=== PATIENT | female | born 2000 | race Caucasian/White ===

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

== ENCOUNTER 2020-12-21 09:14 | Emergency (ER) | payer OTHER, SELFPAY ==
[2020-12-21 09:20] VITALS: BP 136/88; PULSE 91; RESP 17; TEMP 36.9; O2SAT 98; BMI 30.7
[2020-12-21 09:54] LABS: UTC Strep Screen (Rapid) Positive (Negative)
--- NOTE | 2020-12-21 09:56 | HMH.EDUTC ---
[facility] [place] Impression: Strep throat Disposition: Home, Self-Care Condition on Discharge: Good Instructions: DI for Strep Throat, Strep Throat, Azithromycin Additional Instructions: *Monitor Temp, Over the counter Motrin or Tylenol as directed/as needed Tylenol every 4 hours and Motrin every 6 hours (as long as your family doctor has told you that you can take it) for fever or pain. and straight to ER if unable to lower temp less than 101.0 after medication given *Warm salt water gargles may help to soothe the throat *Throat Lozenges *Warm fluids like tea with honey may help to soothe the throat *Sleep elevated *Humidifier/Vaporizer *If you did not take Penicillin shot or was unable to, start taking antibiotic immediately and make sure that you take it for the FULL length of time although you should start to feel better in 24-48 hours *change toothbrush and toothpaste 24-48 hours after starting to take antibiotics so you do not reinfect yourself Monitor Temp. Tylenol and/or Ibuprofen as needed. ER if fever is no less than 101 despite alternating Tylenol and Ibuprofen * Encourage fluids, water, Gatorade, powerade, pedialyte if /toddler/or child *Cold fluids, popsicles and ice cream may feel good on his throat Follow up IMMEDIATELY for new or worsening symptoms or no Noticeable improvement over the next 48-72 hours. 911 for difficulty breathing or swallowing Prescriptions: methylPREDNISolone [Medrol 4mg tab] 4 mg PO DIRECTED #21 tab Transmission Status: Pending to [facility] Azithromycin [Z-Constantin 250mg Tab*] 250 mg PO UD DOSE PK #6 tab Transmission Status: Pending to [facility] Referrals: Daniel Benjamin MD [Primary Care Provider] - As needed Time of Disposition: 10:03 Medical Decision Making - Thomas Inquiry Pt receiving controlled substance: No Thomas was queried for this patient: No Vital Signs: 12/21/20 09:20 Temperature 98.4 F Temperature Source Oral Pulse Rate [Right Brachial] 91 H Respiratory Rate 17 Blood Pressure [Right Arm] 136/88 Blood Pressure Mean [Right Arm] 104 Blood Pressure Source [Right Arm] Automatic Cuff Blood Pressure Position [Right Arm] Sitting 02 Sat by Pulse Oximetry 98 Oxygen Delivery Method Room Air - Lab Data Lab results reviewed: Yes: I reviewed the patient's lab results. Lab Results 12/21/20 09:48: Strep Scn Rapid Clinic Positive A Medical Decision Narrative: Patient states that she is on her period right now and denies chance of [facility] [place] - General Stated complaint: Congestion; sore throat Time Seen by Provider: 12/21/20 09:56 Mode of Arrival: Ambulatory Source of Information: Patient Limitations: No Limitations Description of Symptoms (Recalled from Triage Doc. by RN): PATIENT C/O SORE THROAT, RUNNY NOSE, AND EARS TIGHT SINCE LAST NIGHT HEENT Symptoms (Recalled from RN notes): Yes Resp Symptoms (Recalled from RN notes): No Skin Symptoms (Recalled from RN notes): No MS Symptoms (Recalled from RN notes): No Functional Status (Recalled from RN notes): WNL - History of Present Illness Provider Complaint: Patient state that yesterday evening she started having sore throat and pressure in her ears with runny nose State that it continued throughout the night and this morning she was still feeling bad so she came in to get checked - Related Data Home Medications Medication Instructions Recorded Confirmed cetirizine 10 mg capsule 10 mg PO DAILY 12/14/18 02/20/19 drospirenone 3 mg-ethinyl 1 tab PO DAILY 12/14/18 02/20/19 estradiol 0.03 mg tablet fluticasone propionate 50 1 spray INTRANASAL DAILY 12/14/18 02/20/19 mcg/actuation nasal spray,suspension montelukast 10 mg tablet 10 mg PO QPM 12/14/18 02/20/19 Previous Rx's Medication Instructions Recorded Azithromycin [Z-Constantin 250mg Tab*] 250 mg PO UD DOSE PK #6 tab 12/21/20 methylPREDNISolone [Medrol 4mg 4 mg PO DIRECTED #21 tab 12/21/20
[2020-12-21 10:05] VITALS: BP 136/88; PULSE 91; RESP 17; TEMP 36.9; O2SAT 98
== END 2020-12-21 10:12 | disposition home or self-care (01) ==
PROVIDERS: Emergency Provider Nurse Practitioner; PCP Family Medicine
DX: J02.0 Streptococcal pharyngitis (principal)
CPT/HCPCS: 87880; 99202; G0463

== ENCOUNTER 2021-01-07 11:12 | Emergency (ER) | payer OTHER, SELFPAY ==
[2021-01-07 14:00] VITALS: BP 133/78; PULSE 68; RESP 18; TEMP 36.9; O2SAT 99; BMI 32.5
--- NOTE | 2021-01-07 14:28 | HMH.EDUTC ---
[facility] [place] Clinical Impression: Infected dog bite of finger Qualifiers: Encounter type: initial encounter Qualified Code(s): S61.259A - Open bite of unspecified finger without damage to nail, initial encounter Disposition: Home, Self-Care Condition on Discharge: Good Instructions: DI for Dog Bite Additional Instructions: Clean area well with antibacterial soap and water and pat dry Take oral Antibiotics as prescribed Return if needed Follow up immediately if no improvement or any worsening of symptoms Prescriptions: Amoxicillin/Potassium Clav [Augmentin 875-125 Tablet] 1 tab PO Q12H 7 Days #14 tab Transmission Status: Pending to [facility] Referrals: Daniel Benjamin MD [Primary Care Provider] - As needed Time of Disposition: 14:33 Medical Decision Making - Thomas Inquiry Pt receiving controlled substance: No Thomas was queried for this patient: No Vital Signs: 01/07/21 14:00 Temperature 98.5 F Temperature Source Oral Pulse Rate [Right Brachial] 68 Respiratory Rate 18 Blood Pressure [Right Arm] 133/78 Blood Pressure Mean [Right Arm] 96 Blood Pressure Source [Right Arm] Automatic Cuff Blood Pressure Position [Right Arm] Sitting 02 Sat by Pulse Oximetry 99 Oxygen Delivery Method Room Air Medical Decision Narrative: Patient states that she is allergic to Cephalexin and cephalosporins but has taken Amoxicillin and Augmentin in the past without reactions or complications [facility] [place] - General Stated complaint: dog bite 9/5 lt index finger Time Seen by Provider: 01/07/21 14:28 Mode of Arrival: Ambulatory Source of Information: Patient Limitations: No Limitations Description of Symptoms (Recalled from Triage Doc. by RN): DOG BITE TO LEFT INDEX FINGER YESTERDAY. DOG IS UP TO DATE ON SHOTS. PATIENT IS UP TO DATE ON TDAP HEENT Symptoms (Recalled from RN notes): No Resp Symptoms (Recalled from RN notes): No Skin Symptoms (Recalled from RN notes): Yes MS Symptoms (Recalled from RN notes): No Functional Status (Recalled from RN notes): WNL - History of Present Illness Provider Complaint: Patient states that she was biten on her left index finger and today when she woke up it was warm and red State that she feels like it is infected States that she had her TDAP about a few weeks ago - Related Data Home Medications Medication Instructions Recorded Confirmed cetirizine 10 mg capsule 10 mg PO DAILY 12/14/18 02/20/19 drospirenone 3 mg-ethinyl 1 tab PO DAILY 12/14/18 02/20/19 estradiol 0.03 mg tablet fluticasone propionate 50 1 spray INTRANASAL DAILY 12/14/18 02/20/19 mcg/actuation nasal spray,suspension montelukast 10 mg tablet 10 mg PO QPM 12/14/18 02/20/19 Previous Rx's Medication Instructions Recorded Azithromycin [Z-Constantin 250mg Tab*] 250 mg PO UD DOSE PK #6 tab 12/21/20 methylPREDNISolone [Medrol 4mg 4 mg PO DIRECTED #21 tab 12/21/20 tab] Amoxicillin/Potassium Clav 1 tab PO Q12H 7 Days #14 tab 01/07/21 [Augmentin 875-125 Tablet] Allergies Allergy/AdvReac Type Severity Reaction Status Date / Time cephalexin [CEPHALEXIN] Allergy Unknown Verified 02/20/19 15:10 Cephalosporins Allergy Unknown Verified 02/20/19 15:10 [CEPHALOSPORINS] - Worker's Comp Is this a Worker's Comp case?: No [facility] History - Hepatitis A Screen Drug use history?: No High risk sexual behaviors?: No History of sexually transmitted infection?: No Currently employed?: No Childcare worker?: No Do you have indoor plumbing?: Yes Do you have electricity?: Yes Attestation statement:: This patient has been screened for Hepatitis A risk factors. I have reviewed the patient's past medical history: Yes Other Medical History: Reports: Other Laterality Cases: Bilateral: Tonsillectomy Amputation: No Fractures: No - Social History Smoking Status: Never smoker Alcohol Intake: never Substance Use Type: denies use Occupational Status: other Housing: house Household Members: family
[2021-01-07 14:40] VITALS: BP 133/78; PULSE 68; RESP 18; TEMP 36.9; O2SAT 99
== END 2021-01-07 14:45 | disposition home or self-care (01) ==
PROVIDERS: Emergency Provider Nurse Practitioner; PCP Family Medicine
DX: S61.231A Puncture wound without foreign body of left index finger without damage to nail, initial encounter (principal); W54.0XXA Bitten by dog, initial encounter
CPT/HCPCS: 99202; G0463

== ENCOUNTER 2022-06-19 17:20 | Emergency (ER) | payer BC, SELFPAY ==
[2022-06-19 18:26] VITALS: BP 156/80; PULSE 83; RESP 18; TEMP 37.1; O2SAT 97; BMI 39.3
--- NOTE | 2022-06-19 18:29 | EXP.UTC ---
Discharge Plan Disposition Patient Disposition: Home, Self-Care Condition: Good Prescriptions Prescriptions: New amoxicillin [amoxicillin] 500 mg tablet 500 mg PO TID 10 Days Qty: 30 0RF benzonatate [benzonatate] 100 mg capsule 100 mg PO TIDP PRN (Reason: Cough) Qty: 30 0RF methylprednisolone 4 mg Tablets,Dose Pack 4 mg PO DIRECTED Qty: 21 0RF No Action drospirenone-ethinyl estradiol [Ocella] 3-0.03 mg tablet 1 tab PO DAILY All Day Allergy (cetirizine) 10 mg capsule 10 mg PO DAILY montelukast 10 mg tablet 10 mg PO QPM fluticasone propionate [Flonase Allergy Relief] 50 mcg/actuation spray,suspension 1 spray INTRANASAL DAILY azithromycin 250 mg tablet 250 mg PO QDAY 5 Days Qty: 6 0RF Rx Instructions: ii tabs day one and i tab days 2-5 Referrals Follow up/Referrals: Daniel Benjamin MD [Primary Care Provider] - See instructions Activity Restrictions/Add. Instructions Additional Instructions/Restrictions: Drink plenty of fluids. Take tylenol or ibuprofen for pain or fever. Take the medications as directed. Follow up with your regular doctor. GO TO THE ER FOR ANY WORSENING SYMPTOMS Clinical Impressions Clinical Impression: Sinusitis Instructions Patient Instructions: Sinusitis, Sinus Headache Discharge ED Provider: Mark Mccormick [facility] General Stated complaint: headache congestion Mode of Arrival: Ambulatory Source of Information: Patient Limitations: No Limitations Time Seen by Provider: 06/19/22 18:29 Description of Symptoms (Recalled from Triage Doc. by RN): sinus pressure HEENT Symptoms (Recalled from RN notes): Yes Resp Symptoms (Recalled from RN notes): No Skin Symptoms (Recalled from RN notes): No MS Symptoms (Recalled from RN notes): No Functional Status (Recalled from RN notes): wnl History of Present Illness Provider Complaint: She states that for the past 3 days she has had sinus pressure, sinus drainge, sore throat and a cough. Related Data Home Medications Medication Instructions Recorded Confirmed cetirizine 10 mg capsule (All Day 10 mg PO DAILY 12/14/18 05/27/21 Allergy (cetirizine)) drospirenone 3 mg-ethinyl 1 tab PO DAILY 12/14/18 05/27/21 estradiol 0.03 mg tablet (Ocella) fluticasone propionate 50 1 spray intranasal DAILY 12/14/18 05/27/21 mcg/actuation nasal spray,suspension (Flonase Allergy Relief) montelukast 10 mg tablet 10 mg PO QPM 12/14/18 05/27/21 Previous Rx's Medication Instructions Recorded azithromycin 250 mg tablet 250 mg PO QDAY otitis media 5 days 05/27/21 #6 tabs amoxicillin 500 mg tablet 500 mg PO TID 10 days #30 tabs 06/19/22 benzonatate 100 mg capsule 100 mg PO TIDP PRN Cough #30 caps 06/19/22 methylprednisolone 4 mg tablets in 4 mg PO DIRECTED #21 tabs 06/19/22 a dose pack Allergies Allergy/AdvReac Type Severity Reaction Status Date / Time cephalexin [CEPHALEXIN] Allergy Unknown Verified 05/27/21 16:19 Cephalosporins Allergy Unknown Verified 05/27/21 16:19 [CEPHALOSPORINS] Worker's Comp Is this a Worker's Comp case?: No [facility] Disclaimer: The information contained in this section may have been updated after the patient was seen, as this information can be updated by other users. Social History Smoking Status: Never smoker alcohol intake: never substance use type: denies use current occupational status: other Travel in the last 8 weeks: None household members: family housing: house ROS Obtained: Yes All systems reviewed & no additional complaints except as documented Constitutional Constitutional: Reports poor appetite Eyes Eyes: Reports system reviewed and no additional complaints, except as documented ENT Ears, Nose, Mouth, and Throat: Reports as per HPI Cardiovascular Cardiovascular: Reports system reviewed and no additional complaints, except as documented
[2022-06-19 19:20] VITALS: BP 156/80; PULSE 83; RESP 18; TEMP 37.1; O2SAT 97
== END 2022-06-19 19:31 | disposition home or self-care (01) ==
PROVIDERS: Emergency Provider Nurse Practitioner Family; PCP Family Medicine
DX: J32.9 Chronic sinusitis, unspecified (principal)
CPT/HCPCS: 99212; 99213; G0463

== ENCOUNTER 2022-08-10 15:45 | Emergency (ER) | payer BC, SELFPAY ==
[2022-08-10 15:50] VITALS: BP 142/91; PULSE 102; RESP 20; TEMP 37; O2SAT 96; BMI 35.9
--- NOTE | 2022-08-10 16:19 | EXP.UTC ---
Discharge Plan Disposition Patient Disposition: Still a Patient Condition: Fair Prescriptions Prescriptions: No Action drospirenone-ethinyl estradiol [Ocella] 3-0.03 mg tablet 1 tab PO DAILY montelukast 10 mg tablet 10 mg PO QPM levocetirizine [Xyzal] 5 mg tablet 5 mg PO DAILY Label Comments: Take 1 tablet by mouth once a day Referrals Follow up/Referrals: Dara Us MD [Primary Care Provider] - See instructions Clinical Impressions Clinical Impression: Right sided abdominal pain Discharge ED Provider: Mark Mccormick [facility] [place] General Stated complaint: Right side PIN,nAUSA Mode of Arrival: Ambulatory Source of Information: Patient Limitations: No Limitations Time Seen by Provider: 08/10/22 16:18 Description of Symptoms (Recalled from Triage Doc. by RN): pain on right side if stomach, and nausea HEENT Symptoms (Recalled from RN notes): Yes Resp Symptoms (Recalled from RN notes): No Skin Symptoms (Recalled from RN notes): No MS Symptoms (Recalled from RN notes): No Functional Status (Recalled from RN notes): n/a History of Present Illness Provider Complaint: She states that she has had right sided abdominal pain since yesterday. She states that the pain has progressively increased in intensity. At this time she rates it 8/10. She also c/o having a very poor appetite and nausea. She vomited x 1 today after she tried to eat easter dinner. She has had diarrhea also. She denies fever but she has had chills. Related Data Home Medications Medication Instructions Recorded Confirmed drospirenone 3 mg-ethinyl 1 tab PO DAILY control 12/14/18 08/10/22 estradiol 0.03 mg tablet (Ocella) montelukast 10 mg tablet 10 mg PO QPM Asthma 12/14/18 08/10/22 levocetirizine 5 mg tablet (Xyzal) 5 mg PO DAILY allergies 08/10/22 08/10/22 Allergies Allergy/AdvReac Type Severity Reaction Status Date / Time cephalexin [CEPHALEXIN] Allergy Unknown Verified 08/10/22 16:10 Cephalosporins Allergy Unknown Verified 08/10/22 16:10 [CEPHALOSPORINS] Worker's Comp Is this a Worker's Comp case?: No [facility] Disclaimer: The information contained in this section may have been updated after the patient was seen, as this information can be updated by other users. Social History Smoking Status: Never smoker alcohol intake: never substance use type: denies use current occupational status: other Travel in the last 8 weeks: None household members: family housing: house ROS Obtained: Yes All systems reviewed & no additional complaints except as documented Constitutional Constitutional: Denies chills, Denies fever(s) and Reports poor appetite ENT Ears, Nose, Mouth, and Throat: Denies dizziness and Denies sore throat Cardiovascular Cardiovascular: Denies dyspnea Respiratory Respiratory: Denies chest congestion, Denies cough and Denies dyspnea Gastrointestinal Gastrointestingal: Reports as per HPI and abdominal pain Genitourinary Female Genitourinary: Denies difficulty voiding, Denies dysuria, Denies hematuria, Denies urinary frequency, Denies urinary incontinence, Denies urinary hesitancy and Denies urinary urgency Musculoskeletal Musculoskeletal: Denies arthralgias Integumentary/Breasts Skin/Breast: Denies rash Neurologic Neurologic: Denies dizziness Physical Exam General General appearance: alert and in no apparent distress Head Head exam: atraumatic and normocephalic Eye Eye exam: Present normal appearance, PERRL and EOMI ENT ENT exam: Present normal exam, normal oropharynx, mucous membranes moist, TM's normal bilaterally and normal external ear exam Neck Neck exam: Present normal inspection, full ROM and trachea midline; Absent tenderness, meningismus or lymphadenopathy Chest Chest inspection: Present normal inspection and symmetric chest wall rise; Absent tenderness, rash or abscess Respiratory Respiratory exam: Present normal l
[2022-08-10 16:29] LABS: Apearance,Urine Clear (Clear); Bilirubin,Urine 1+ (Negative); Blood, Urine Negative (Negative); Color,Urine Dark Yellow (Yellow); Glucose,Urine (UA) Negative (Negative); Ketones,Urine TRACE (Negative); PH,Urine 6.5 (5.0-8.5); Protein,Urine Trace (Negative); UTC Leukocyte Esterase,Urine Negative (Negative); UTC Nitrate,Urine Negative (Negative); Urobilinogen,Urine 1 EU/dl (0.2)
[2022-08-10 16:29] LABS: UTC Pregnancy Test, Urine Negative (Negative)
--- NOTE | 2022-08-10 16:33 | CT_ITS ---
PROCEDURE INFORMATION: Exam: CT Abdomen And Pelvis With Contrast Exam date and time: 08/10/2022 4:52 PM Age: 22 years old Clinical indication: Abdominal pain; Localized; Right upper quadrant (ruq); Additional info: Ruq pain, vomiting TECHNIQUE: Imaging protocol: Computed tomography of the abdomen and pelvis with contrast. Radiation optimization: All CT scans at this facility use at least one of these dose optimization techniques: automated exposure control; mA and/or kV adjustment per patient size (includes targeted exams where dose is matched to clinical indication); or iterative reconstruction. Contrast material: ISOVUE; Contrast volume: 75 ml; Contrast route: IV; REPORTING DATA: Count of CT and Cardiac NM exams in prior 12 months: This patient has received 0 known CTs and 0 known cardiac nuclear medicine studies in the 12 months prior to the current study. COMPARISON: No relevant prior studies available. FINDINGS: Lungs: No consolidation, lung nodules, or pleural effusions. Liver: Normal. No mass. Gallbladder and bile ducts: Normal. No calcified stones. No ductal dilation. Pancreas: Normal. No ductal dilation. Spleen: 1.2 cm accessory splenule anterior to the spleen. Adrenal glands: Normal. No mass. Kidneys and ureters: Normal. No hydronephrosis, calcified stones, or masses. Stomach and bowel: Stomach is moderately distended but has no wall thickening. No intestinal masses, bowel wall thickening, or abnormal luminal dilatation. Appendix: No evidence of appendicitis. Intraperitoneal space: A trace of free fluid is present. Vasculature: No abdominal aortic aneurysm. No other significant abnormalities. Lymph nodes: No enlarged lymph nodes. Urinary bladder: No significant wall thickening. Reproductive: Retroverted uterus is appropriate in size and shape and has no myometrial masses. No adnexal masses. Bones/joints: No acute fracture or bone lesions. Soft tissues: No masses or other abnormalities. IMPRESSION: 1. Moderate gastric distension is of uncertain significance. No gastric wall thickening or definite ulcerations. No obstructing abnormalities. 2. No hepatic biliary abnormalities. 3. Trace of free fluid in the pelvis is probably physiologic. 4. No other acute abnormalities in the abdomen and pelvis.
--- NOTE | 2022-08-10 16:35 | HMH.EDGENADL ---
Discharge Plan Disposition Patient Disposition: Still a Patient Condition: Fair Prescriptions Prescriptions: No Action drospirenone-ethinyl estradiol [Ocella] 3-0.03 mg tablet 1 tab PO DAILY montelukast 10 mg tablet 10 mg PO QPM levocetirizine [Xyzal] 5 mg tablet 5 mg PO DAILY Label Comments: Take 1 tablet by mouth once a day Referrals Follow up/Referrals: Dara Us MD [Primary Care Provider] - See instructions Activity Restrictions/Add. Instructions Additional Instructions/Restrictions: At this time was felt you are safe to be discharged home. If new or worsening symptoms please do not hesitate to return to the emergency department. Please take your medication as prescribed. Please follow-up with your family doctor mid to late week if symptoms persist. Clinical Impressions Clinical Impression: Right sided abdominal pain Instructions Patient Instructions: DI for Acute Abdominal Pain Discharge ED Provider: Samuel Pizarro General Adult HPI General Chief complaint: Abdominal Pain Stated complaint: Right side PIN,nAUSA Time Seen by Provider: 08/10/22 16:18 Mode of Arrival: Ambulatory Source of Information: Patient Limitations: No Limitations Description of Symptoms (Recalled from ER Triage Doc. by RN): pain on right side if stomach, and nausea History of Present Illness HPI narrative: Patient is a 22-year-old female with no significant past medical history who presents emergency department for evaluation of right upper quadrant abdominal pain, vomiting. History is obtained by patient at bedside. Onset was acute, over the last 24 hours. Initially presented after Easter dinner last night with right upper quadrant abdominal pain and vomiting which has been waxing and waning. Patient has had limited ability to tolerate p.o. intake. Last menstrual period last week, denies vaginal discharge, chest pain, cough, fevers. Symptoms are moderate to severe in intensity. No other acute complaints at this time. Related Data Home Medications Medication Instructions Recorded Confirmed drospirenone 3 mg-ethinyl 1 tab PO DAILY control 12/14/18 08/10/22 estradiol 0.03 mg tablet (Ocella) montelukast 10 mg tablet 10 mg PO QPM Asthma 12/14/18 08/10/22 levocetirizine 5 mg tablet (Xyzal) 5 mg PO DAILY allergies 08/10/22 08/10/22 Allergies Allergy/AdvReac Type Severity Reaction Status Date / Time cephalexin [CEPHALEXIN] Allergy Unknown Verified 08/10/22 16:10 Cephalosporins Allergy Unknown Verified 08/10/22 16:10 [CEPHALOSPORINS] [facility] Disclaimer: The information contained in this section may have been updated after the patient was seen, as this information can be updated by other users. Social History Smoking Status: Never smoker alcohol intake: never substance use type: denies use current occupational status: other Travel in the last 8 weeks: None household members: family housing: house ROS Obtained: Yes Systems reviewed as appropriate & no additional complaints except as documented Physical Exam General General appearance: alert and in no apparent distress Head Head exam: atraumatic and normocephalic Eye Eye exam: Present PERRL ENT ENT exam: Present mucous membranes moist Neck Neck exam: Present normal inspection Chest Chest inspection: Present normal inspection and symmetric chest wall rise Respiratory Respiratory exam: Present normal lung sounds bilaterally; Absent respiratory distress Cardiovascular Cardiovascular exam: Present normal rhythm, tachycardia and other (Capillary refill less than 2 seconds) Abdominal Exam Abdominal exam: Present soft, tenderness (Right upper quadrant) and guarding (Voluntary) Extremities Exam Extremities exam: Present normal inspection Neurological Exam Neurological exam: Present alert Psychiatric Psychiatric exam: Present normal affect Skin Skin exam:
[2022-08-10 16:39] VITALS: BP 151/102; PULSE 93; RESP 18; TEMP 37; O2SAT 97; BMI 16.2
--- NOTE | 2022-08-10 16:39 | ECG_ITS ---
APPROVED REPORT Exam: Resting ECG HR:90 bpm ECG Measurements Heart Rate 90 AXES NM 149 P 47 QRSd 86 QRS 86 QT 359 T 39 QTc 407 Conclusion SINUS RHYTHM NORMAL ECG UNCONFIRMED REPORT Electronically signed by : Daniel Fernández MD 08/11/2022 20:23:17
[2022-08-10 16:47] VITALS: BP 152/92; PULSE 93; O2SAT 98
[2022-08-10 16:49] LABS: Basophils % 0.3 % (0.1-2.0); Eosinophils % 0.4 % (0.1-12.0); Hemoglobin 15.1 g/dL (12.2-16.2); Lymphocytes # 0.9 K/mm3 (0.7-4.5); Lymphocytes % 15.6 % (10-50); Mean Corpuscular HGB Conc 32.9 g/dL (31.8-35.4); Mean Corpuscular Hemoglobin 27.8 pg (27.0-31.2); Mean Corpuscular Volume 84.3 fl (81-99); Mean Platelet Volume 7.9 fl (7.4-10.4); Monocytes # 0.4 K/mm3 (0.1-1.0); Monocytes % 6.8 % (1.7-9.3); Neutrophils # 4.4 K/mm3 (1.8-7.8); Platelet Count 210 K/mm3 (142-424); Red Blood Count 5.45 M/mm3 (4.20-5.40); Red Cell Distribution Width 12.9 % (11.5-17.5); White Blood Count 5.7 K/mm3 (4.8-10.8)
--- NOTE | 2022-08-10 16:49 | PC.NURSE ---
pt to CT
[2022-08-10 16:51] LABS: Chloride 102 mmol/L (98-107); Potassium 3.7 mmoL/L (3.5-5.1); Sodium 137 mmol/L (136-145)
[2022-08-10 16:54] LABS: Alanine Aminotransferase 42 U/L (12-78); Albumin Level 4.3 g/dl (3.5-5.0); Albumin/Globulin Ratio 1.4 (1.1-1.8); Alkaline Phosphatase 63 U/L (38-126); Anion Gap 11.7 mEq/L (5-15); Aspartate Amino Transferase 30 U/L (14-36); Bilirubin,Total 0.8 mg/dl (0.2-1.3); Blood Urea Nitrogen 9 mg/dl (7-17); Calcium 8.7 mg/dl (8.4-10.2); Carbon Dioxide 27 mmol/L (22.0-30.0); Creatinine Clearance Estimated 85 mL/min (50-200); Estimated Glomerular Filt Rate 104 ml/min (>60); GFR (African American) 125 ML/MIN (>60); Glucose 119 mg/dl (74-100); Lipase 32 U/L (23-300); Total Protein,Serum 7.3 g/dl (6.3-8.2)
[2022-08-10 16:55] LABS: Lactic Acid 0.7 mmol/L (0.7-2.1)
[2022-08-10 17:30] VITALS: BP 139/96; PULSE 83; RESP 16; O2SAT 99
--- NOTE | 2022-08-10 17:36 | PC.NURSE ---
checked on pt at this time, pt states no needs, reports pain has improved. pt family at BS
[2022-08-10 18:10] VITALS: BP 135/82; PULSE 72; RESP 16; TEMP 37; O2SAT 98
== END 2022-08-10 18:10 | disposition home or self-care (01) ==
LOC: UTC 16:23 → ER 16:27
PROVIDERS: Nurse Practitioner Family; Emergency Provider Emergency Medicine; PCP Family Medicine
DX: R10.11 Right upper quadrant pain (principal); R11.0 Nausea
CPT/HCPCS: 74177; 80053; 81003; 81025; 82248; 83605; 83690; 85025; 87086; 93005; 96361; 96374; 96375; 99285; J2405; Q9967

== ENCOUNTER → 2022-08-19 08:09 | Outpatient (CLI) | payer BC, SELFPAY ==
--- NOTE | 2022-08-19 08:14 | US_ITS ---
FINAL REPORT CLINICAL HISTORY: ABDOMINAL PAIN FINDINGS: Sonographic images of the right upper quadrant were obtained. Note is made this was a difficult scan secondary to body habitus and inadequate rib space. The pancreas is partially obscured.The liver has an unremarkable appearance.The gallbladder appears normal without evidence of gallstones.There is no evidence of biliary ductal dilatation.The common duct measures 3 mm. Limited images of the right kidney are unremarkable. IMPRESSION: Unremarkable right upper quadrant ultrasound. Reviewed, Interpreted and Dictated by Amor Olvera III, MD Transcribed by Indiana Upton Authenticated and [facility]
== END ==
LOC: RAD 08:10
PROVIDERS: PCP Family Medicine; Visit Provider Nurse Practitioner Family
DX: R10.11 Right upper quadrant pain (principal); R10.13 Epigastric pain; R11.2 Nausea with vomiting, unspecified
CPT/HCPCS: 76705

== ENCOUNTER → 2022-10-06 10:15 | Outpatient (CLI) | payer BC, SELFPAY ==
--- NOTE | 2022-10-06 10:22 | NM_ITS ---
FINAL REPORT TECHNIQUE: The patient was injected with 8.20 mCi of technetium 99m Choletec and subsequently 1.9 mcg of Kinevac. Images of the abdomen were obtained for one hour. CLINICAL HISTORY: DYSPEPSIA,RUQ PAIN COMPARISON: None FINDINGS: Hepatic uptake is normal. There is gallbladder is visualized at 5 minutes. Common duct is visualized at 10 minutes. Small bowel activity is normal. Post Kinevac images render an ejection fraction of 94%. IMPRESSION: Normal hepatobiliary scan. Normal ejection fraction. Reviewed, Interpreted and Dictated by Lanie Ramirez MD Transcribed by Shilpa Fritz Authenticated and [facility]
== END ==
PROVIDERS: PCP Family Medicine; Visit Provider Nurse Practitioner Family
DX: R10.11 Right upper quadrant pain (principal); R10.13 Epigastric pain
CPT/HCPCS: 78227; A9537; J2805

== ENCOUNTER → 2022-10-23 14:22 | Outpatient (CLI) | payer BC, SELFPAY ==
[2022-10-29 00:07] LABS: Lyme B. burgdorferi PCR Blood Negative (Negative)
== END ==
PROVIDERS: PCP Family Medicine; Visit Provider Nurse Practitioner
DX: R10.11 Right upper quadrant pain (principal); Z83.1 Family history of other infectious and parasitic diseases; R01.1 Cardiac murmur, unspecified
CPT/HCPCS: 36415; 87476

== ENCOUNTER 2022-11-06 09:27 | Day surgery (SDC) | payer BC, SELFPAY ==
[2022-10-30 14:34] VITALS: BMI 36.8
[2022-11-06 09:45] VITALS: BP 132/77; PULSE 86; RESP 18; TEMP 36.3; O2SAT 97
[2022-11-06 09:46] LABS: Urine Pregnancy, HCG Qual. Negative (Negative)
--- NOTE | 2022-11-06 09:57 | EXP.ANES.CKL ---
[facility] Disclaimer: The information contained in this section may have been updated after the patient was seen, as this information can be updated by other users. Medical History Allergies Surgical History History of tonsillectomy and adenoidectomy Family History Grandmother Coronary artery disease Grandfather Coronary artery disease Other Family history of hypertension Family history of myocardial infarction Social History Smoking Status: Former smoker alcohol intake: current substance use type: denies use current occupational status: employed Travel in the last 8 weeks: None household members: significant other and friend(s) housing: house lives independently: Yes marital status: single education level: college service: No caffeine: Yes special frannie needs: No do you feel safe at home: Yes victim of physical abuse: No victim of emotional abuse: No victim of sexual abuse: No would you like helpful sources: No [facility] Anesthesia Checklist Patient Identification Patient Identification: Arm Band Structural Data Admitted From: Home Planned Operative Procedure/s: EGD/Colonoscopy Consent for Planned Operative Procedure(s) Verified: Yes Verified Documents: Surgical Consent and History and Physical NPO Status Verified Time NPO: 00:00 Additional verifications Anesthesia Reactions: Yes (PONV) Airway Assessment C-Spine Mobility Assessed: Yes TMJ Mobility Assessed: Yes Dentition: Good Dentition Neurological Assessment Level of Consciousness: Awake and Alert Anesthesia Plan Anesthesia Risk discussed: Yes Anesthesia Plan: Verified ASA Class: II Anesthesia Type: MAC
[2022-11-06 10:08] VITALS: O2SAT 97
--- NOTE | 2022-11-06 10:31 | HMH.SCOPE ---
Procedure: Date: 11/06/22 Patient Date of :: 2000 Procedure Performed:: EGD & biopsies Indications:: Abdominal pain, nausea/vomiting, diarrhea Performing Provider:: Ronny Guillermo MD Referring Provider:: Nicole Guillermo APRN Sedation:: Propofol Procedure:: The gastroscope was gently passed through the incisoral orifice into the oral cavity and under direct visualization the esophagus was intubated. The endoscope was passed down the esophagus, through the stomach, and into the duodenum. Color, texture, mucosa, and anatomy of the esophagus, stomach, and duodenum were carefully examined with the scope. Findings:: Oropharynx: normal Esophagus: normal EG Junction: intact at 40 cm Cardia: normal Fundus: normal Body: normal, random biopsies obtained Antrum: normal Duodenal bulb: normal Duodenum (second and third portion): normal, random biopsies obtained Impression: Normal EGD, no evidence of ulcer disease or hiatus hernia Symptoms suggestive of abdominal migraine syndrome Specimens:: Gastric and small bowel Recommendations:: Symptomatic therapy and f/u with GI Clinic Complications:: None Estimated blood obtained (mL): 0 Colonoscopy Component Colonoscopy Component Was a colonoscopy performed during today's procedure?: No
--- NOTE | 2022-11-06 10:34 | HMH.SCOPE ---
Procedure: Date: 11/06/22 Patient Date of :: 2000 Procedure Performed:: Diagnostic colonoscopy Indications:: Abdominal pain, diarrhea Performing Provider:: Ronny Guillermo MD Referring Provider:: Nicole Guillermo APRN Sedation:: Propofol Procedure:: After placing the patient in the left lateral decubitus position, the colonoscopy was gently inserted into the rectum and under direct visualization advanced to the cecum which was identified by transillumination in the right lower quadrant, identification of the ileocecal valve, appendiceal orifice, and cecal strap. Color, texture, mucosa, and anatomy of the colon were carefully examined with the scope. Findings:: Anal canal: normal Rectum: normal Sigmoid colon: normal without polyps or inflammatory changes Descending colon: normal without polyps or inflammatory changes Splenic flexure: normal Transverse colon: normal without polyps or inflammatory changes Hepatic flexure: normal Ascending colon: normal without polyps or inflammatory changes Cecum: normal Terminal ileum: Normal Impression: Normal colonoscopy. No evidence of crohns disease or colitis. Symptoms suggestive of abdominal migraine syndrome Recommendations:: Symptomatic therapy and f/u with GI Clinic. Complications:: None Estimated blood obtained (mL): 0 Colonoscopy Component Colonoscopy Component Was a colonoscopy performed during today's procedure?: Yes Recommended follow up colonoscopy of at least 10 years?: Yes
[2022-11-06 10:36] VITALS: BP 148/78; PULSE 94; RESP 16; TEMP 36.4; O2SAT 97
[2022-11-06 10:46] VITALS: BP 142/94; PULSE 94; RESP 16; O2SAT 96
[2022-11-06 10:56] VITALS: BP 138/83; PULSE 90; RESP 16; O2SAT 97
[2022-11-06 11:03] VITALS: BP 143/81; PULSE 81; RESP 16; TEMP 36.6; O2SAT 99
== END 2022-11-06 11:06 | disposition home or self-care (01) ==
PROVIDERS: Internal Medicine; PCP Family Medicine; Visit Provider Internal Medicine Gastroenterology
PROC: 0DJ08ZZ Inspection of Upper Intestinal Tract, Via Natural or Artificial Opening Endoscopic (ICD-10-PCS; CPT 43235; principal; 2022-11-06 10:30)
DX: G43.D0 Abdominal migraine, not intractable (principal); R19.7 Diarrhea, unspecified; R11.2 Nausea with vomiting, unspecified
CPT/HCPCS: 43239; 45378; 81025

== ENCOUNTER → 2023-01-20 13:57 | Outpatient (CLI) | payer BC, SELFPAY ==
[2023-01-24 23:57] LABS: Calprotectin, Fecal 10 ug/g (0-120)
[2023-01-30 15:04] LABS: Pancreatic Elastase, Fecal 488 (>200)
== END ==
PROVIDERS: PCP Family Medicine; Visit Provider Nurse Practitioner
DX: G43.D0 Abdominal migraine, not intractable (principal); R19.5 Other fecal abnormalities; Z83.79 Family history of other diseases of the digestive system
CPT/HCPCS: 82656; 83993

== ENCOUNTER 2023-05-26 16:42 | Outpatient (CLI) | payer BC, SELFPAY | END 2023-05-26 23:59 | LOC: LAB.DROPOF 16:42 | PROVIDERS: PCP Nurse Practitioner Family; Visit Provider Nurse Practitioner Family | DX: R50.9 Fever, unspecified (principal); J02.9 Acute pharyngitis, unspecified; R51.9 Headache, unspecified; R05.9 Cough, unspecified | CPT/HCPCS: 87070; 87635 ==

== ENCOUNTER 2023-06-28 15:23 | Emergency (ER) | payer BC, SELFPAY ==
[2023-06-28 15:30] VITALS: BP 136/79; PULSE 92; RESP 18; TEMP 37; O2SAT 99; BMI 43.3
--- NOTE | 2023-06-28 15:43 | EXP.UTC ---
Discharge Plan Disposition Patient Disposition: Home, Self-Care Condition: Good Prescriptions Prescriptions: New ibuprofen [IBU] 800 mg tablet 800 mg PO Q8HP PRN (Reason: Moderate Pain) Qty: 30 0RF No Action montelukast 10 mg tablet 10 mg PO QPM albuterol sulfate 90 mcg/actuation HFA aerosol inhaler 2 puff inhalation Q6H PRN (Reason: allergies) [place] 24 Fe 1 mg-20 mcg (24)/75 mg (4) tablet 1 tab PO DAILY amitriptyline 50 mg tablet 50 mg PO HS Qty: 30 2RF fluticasone propionate 50 mcg/actuation spray,suspension 2 spray intranasal DAILY PRN levocetirizine [Xyzal] 5 mg tablet 5 mg PO DAILY Patient Comments: Take 1 tablet by mouth once a day Referrals Follow up/Referrals: Sue Lieberman APRN [Primary Care Provider] - See instructions Pao London DPM [Staff Physician] - See instructions Activity Restrictions/Add. Instructions Additional Instructions/Restrictions: Rest the extremity, Elevate the extremity as tolerated while you are resting. Take ibuprofen for pain. I sent in a prescription to your pharmacy. Follow up with Dr. London (podiatry). I put in a referral but you need to call her office and schedule an appointment. Follow up with your regular doctor. GO TO THE ER FOR ANY WORSENING SYMPTOMS Clinical Impressions Clinical Impression: Left foot pain, Tendinitis of left foot Stand Alone Forms Stand Alone Forms: Work/School Release Instructions Patient Instructions: Tendinopathy Discharge ED Provider: Mark Mccormick [facility] General Stated complaint: LT foot pain Time Seen by Provider: 06/28/23 15:42 History of Present Illness Provider Complaint: She states that for the past 2 days she has had left foot pain. She denies any known injury. She states that walking, flexing the foot and bearing weight on the front of her foot makes her pain worse. Related Data Home Medications Medication Instructions Recorded Confirmed montelukast 10 mg tablet 10 mg PO QPM Asthma 12/14/18 05/26/23 levocetirizine 5 mg tablet (Xyzal) 5 mg PO DAILY allergies 08/10/22 05/26/23 norethindrone 1 mg-ethinyl 1 tab PO DAILY 04/09/23 05/26/23 estradiol 20 mcg (24)-iron 75 mg (4) tablet ([place] 24 Fe) albuterol sulfate 90 mcg/actuation 2 puff inhalation Q6H PRN allergies 05/26/23 05/26/23 aerosol inhaler fluticasone propionate 50 2 spray intranasal DAILY PRN 05/26/23 05/26/23 mcg/actuation nasal spray,suspension Previous Rx's Medication Instructions Recorded amitriptyline 50 mg tablet 50 mg PO HS abd #30 tabs 04/09/23 ibuprofen 800 mg tablet (IBU) 800 mg PO Q8HP PRN Moderate Pain 06/28/23 #30 tabs Allergies Allergy/AdvReac Type Severity Reaction Status Date / Time cephalexin [CEPHALEXIN] Allergy Unknown Verified 05/26/23 14:17 Cephalosporins Allergy Unknown Verified 05/26/23 14:17 [CEPHALOSPORINS] [facility] Disclaimer: The information contained in this section may have been updated after the patient was seen, as this information can be updated by other users. Medical History Allergies Surgical History History of tonsillectomy and adenoidectomy Family History Grandmother Coronary artery disease Grandfather Coronary artery disease Other Family history of hypertension Family history of myocardial infarction Social History Smoking Status: Former smoker alcohol intake: current substance use type: denies use current occupational status: employed Travel in the last 8 weeks: None household members: significant other and friend(s) housing: house lives independently: Yes marital status: single education level: college service: No caffeine: Yes special frannie needs: No do you feel safe at home: Yes victim of physical abuse: No victim of emotional abuse: No victim of sexual abuse: No would you like helpful sources: No ROS Obtained: Yes All systems reviewed & no additional complaints except as documented Constitutional Constitutional: Denies chills and Denies fever(s) Eyes Eyes: Denies eye discharge ENT Ears, Nose, Mouth, and Throat: Denies dizziness, Denies otalgia and Denies sore throat Cardiovascular Cardiovascular: Denies chest pain Respiratory Respiratory: Denies shortness of breath, Denies chest congestion, Denies cough, Denies stridor and Denies wheezing Gastrointestinal Gastrointestingal: Denies nausea or vomiting Musculoskeletal Musculoskeletal: Reports as per HPI Integumentary/Breasts Skin/Breast: Denies redness, Denies rash and Denies wounds Neurologic Neurologic: Denies dizziness and Denies paresthesias Allergic/Immunologic Allergic/Immunologic: Denies wheezing Physical Exam General General appearance: alert and in no apparent distress Head Head exam: atraumatic, normocephalic and normal inspection Eye Eye exam: Present normal appearance, PERRL and EOMI ENT ENT exam: Present normal exam, normal oropharynx, mucous membranes moist, TM's normal bilaterally and normal external ear exam Neck Neck exam: Present normal inspection, full ROM and trachea midline; Absent meningismus or lymphadenopathy Chest Chest inspection: Present normal inspection and symmetric chest wall rise; Absent tenderness Respiratory Respiratory exam: Present normal lung sounds bilaterally; Absent respiratory distress Cardiovascular Cardiovascular exam: Present regular rate and normal rhythm; Absent JVD Abdominal Exam Abdominal exam: Present soft and normal bowel sounds; Absent distention, tenderness or guarding Extremities Exam Extremities exam: Present normal capillary refill; Absent calf tenderness Expanded Lower Extremity Exam Right: Knee exam: Present normal inspection, full ROM and knee extension intact; Absent tenderness Lower leg exam: Present normal inspection, full ROM and Achilles tendon intact; Absent tenderness or Homans' sign Ankle exam: Present normal inspection and full ROM; Absent tenderness, swelling, abrasion, laceration, ecchymosis, deformity, crepitus, dislocation, erythema, tenderness over talofibular lig or anterior draw sign Foot/toe exam: Present full ROM and tenderness; Absent swelling, abrasion, laceration, ecchymosis, deformity, crepitus, dislocation, erythema, amputation, puncture wound, foreign body, calcaneal tenderness, tenderness at base of 5th metatarsal, nail avulsion or subungual hematoma Neurovascular/Tendon exam: Present normal capillary refill; Absent pulse deficit, motor deficit, sensory deficit, tendon deficit or extremity cold to touch Gait: observed and limited by pain Back Exam Back exam: Present normal inspection; Absent tenderness Neurological Exam Neurological exam: Present alert and oriented X3 Psychiatric Psychiatric exam: Present normal affect and normal mood Skin Skin exam: Present warm, dry, intact and normal color Lymphatic Lymphatic Findings: no adenopathy Medical Decision Making Medical Records Medical records reviewed: No I reviewed the patient's medical records. Thomas Inquiry Pt receiving controlled substance: No
[2023-06-28 15:57] VITALS: BP 139/79; PULSE 92; RESP 18; TEMP 37; O2SAT 99
== END 2023-06-28 16:03 | disposition home or self-care (01) ==
PROVIDERS: Emergency Provider Nurse Practitioner Family; PCP Nurse Practitioner Family
DX: M79.672 Pain in left foot (principal); M77.52 Other enthesopathy of left foot and ankle
CPT/HCPCS: 99212; 99214; G0463

== ENCOUNTER 2023-07-03 09:35 | Outpatient (CLI) | payer BC, SELFPAY ==
--- NOTE | 2023-07-03 09:44 | XR_ITS ---
FINAL REPORT CLINICAL HISTORY: left foot swelling, pain post injury COMPARISON: None FINDINGS: AP, oblique and lateral views of the left foot were obtained. There is no prior exam for comparison. There is no acute fracture or dislocation. The joint spaces are preserved. Soft tissues are normal. IMPRESSION: No acute osseous abnormality of the left foot. Reviewed, Interpreted and Dictated by Lanie Ramirez MD Transcribed by Shahnaz Martinez Authenticated and . [facility]
== END 2023-07-03 23:59 ==
LOC: RAD 09:36
PROVIDERS: PCP Nurse Practitioner Family; Visit Provider Nurse Practitioner Family
DX: M79.672 Pain in left foot (principal)
CPT/HCPCS: 73630

== ENCOUNTER 2023-07-16 20:46 | Outpatient (CLI) | payer BC, SELFPAY | END 2023-07-16 23:59 | LOC: LAB.DROPOF 20:47 | PROVIDERS: PCP Student in an Organized Health Care Education/Training Program; Visit Provider Student in an Organized Health Care Education/Training Program | DX: J02.9 Acute pharyngitis, unspecified (principal) | CPT/HCPCS: 87070 ==

== ENCOUNTER 2023-08-11 07:20 | Outpatient (CLI) | payer BC, SELFPAY ==
--- NOTE | 2023-08-11 07:31 | MR_ITS ---
FINAL REPORT CLINICAL HISTORY: injury of left foot. PAIN ON DORSAL ASPECT OF FOOT AFTER GETTING FOOT STUCK IN FENCE. COMPARISON: None FINDINGS: Multiplanar MR imaging of the left foot was performed with and without contrast. There is a nondisplaced fracture or fractures involving the second metatarsal with surrounding bone marrow edema and soft tissue swelling. No other focal areas of bone marrow edema are seen. No bony mass is identified. The musculature is intact. There is no evidence of abnormal contrast enhancement. IMPRESSION: Nondisplaced fracture or fractures involving the second metatarsal with surrounding bone marrow edema and soft tissue swelling. Reviewed, Interpreted and Dictated by Amor Olvera III, MD Transcribed by Shahnaz Martinez Authenticated and [facility]
[2023-08-11] MEDS: SODIUM CHLORIDE 0.9% 10ML SYR (RAD ONLY) 10 ML IV (08:49)
[2023-08-11] MEDS: GADOTERIDOL INJ 17ML SYRINGE 22 ML IV (08:49)
== END 2023-08-11 23:59 | disposition home or self-care (01) ==
PROVIDERS: PCP Nurse Practitioner Family; Visit Provider Nurse Practitioner
DX: S99.922A Unspecified injury of left foot, initial encounter (principal); M79.672 Pain in left foot; M79.89 Other specified soft tissue disorders
CPT/HCPCS: 73720; A9576

== ENCOUNTER 2023-09-06 14:24 | Outpatient (CLI) | payer BC, SELFPAY ==
--- NOTE | 2023-09-06 14:39 | XR_ITS ---
PROCEDURE INFORMATION: Exam: XR Left Foot Complete; Alignment Exam date and time: 09/06/2023 2:43 PM Age: 23 years old Clinical indication: Injury or trauma; Other: Caught left foot in fence; Swelling (edema); Additional info: Left fracture TECHNIQUE: Imaging protocol: Radiologic exam of the left foot. Views: 3 or more views. COMPARISON: MR FOOT LT WO/W CON 08/11/2023 7:29 AM FINDINGS: Bones/joints: hindfoot-midfoot and midfoot-forefoot articulations are normal. metatarsals and the phalanges without an acute process. subtalar joint and the tibiotalar joint appears normal. Soft tissues: Normal. IMPRESSION: Normal foot
== END 2023-09-06 23:59 | disposition home or self-care (01) ==
LOC: RAD 14:27
PROVIDERS: PCP Nurse Practitioner Family; Visit Provider Nurse Practitioner
DX: M79.672 Pain in left foot (principal)
CPT/HCPCS: 73630

== ENCOUNTER 2023-09-21 17:04 | Emergency (ER) | payer BC, SELFPAY ==
[2023-09-21 17:40] VITALS: BP 144/90; PULSE 111; RESP 21; TEMP 37.2; O2SAT 97; BMI 42.9
--- NOTE | 2023-09-21 18:09 | EXP.UTC ---
Discharge Plan Disposition Patient Disposition: Home, Self-Care Condition: Good Prescriptions Prescriptions: New ofloxacin 0.3 % drops 10 drp otic (ear) BID 14 Days Qty: 10 0RF Rx Instructions: right ear as directed azithromycin [Zithromax Z-Constantin] 250 mg tablet See Rx Instructions .ROUTE .COMPLEX 5 Days Qty: 6 0RF Rx Instructions: For 250 mg dose pack: take 500 mg today (day 1), then 250 mg for 4 days (days 2-5) No Action amitriptyline 50 mg tablet 50 mg PO HS Qty: 30 2RF levocetirizine [Xyzal] 5 mg tablet 5 mg PO DAILY Patient Comments: Take 1 tablet by mouth once a day Referrals Follow up/Referrals: Sue Lieberman APRN [Primary Care Provider] - See instructions Activity Restrictions/Add. Instructions Additional Instructions/Restrictions: *Monitor Temp, Over the counter Motrin or Tylenol as directed/as needed Tylenol every 4 hours and Motrin every 6 hours (as long as your family doctor has told you that you can take it) for fever or pain. and straight to ER if unable to lower temp less than 101.0 after medication given Use drops as prescribed *Sleep elevated *Humidifier/Vaporizer Take oral medication as prescribed Follow up IMMEDIATELY for new or worsening symptoms or no Noticeable improvement over the next 48-72 hours. 911 for difficulty breathing or swallowing Clinical Impressions Clinical Impression: Otitis media Instructions Patient Instructions: Middle Ear Infection, Ofloxacin Otic Discharge ED Provider: Yessica Melton [facility] General Stated complaint: RT ear pain Mode of Arrival: Ambulatory Source of Information: Patient Limitations: No Limitations Time Seen by Provider: 09/21/23 18:10 Description of Symptoms (Recalled from Triage Doc. by RN): PATIENT C/O RIGHT EAR ACHE WITH SOME DRAINAGE TAHT STARTED THURSDAY EVENING HEENT Symptoms (Recalled from RN notes): Yes Resp Symptoms (Recalled from RN notes): No Skin Symptoms (Recalled from RN notes): No MS Symptoms (Recalled from RN notes): No Functional Status (Recalled from RN notes): WNL History of Present Illness Provider Complaint: Patient states that she started with pain and drainage from her right ear on Thursday that has continued to get worse so today she came in to get it checked Related Data Home Medications Medication Instructions Recorded Confirmed levocetirizine 5 mg tablet (Xyzal) 5 mg PO DAILY allergies 08/10/22 09/21/23 Previous Rx's Medication Instructions Recorded amitriptyline 50 mg tablet 50 mg PO HS abd #30 tabs 07/09/23 azithromycin 250 mg tablet See Rx Instructions PO .COMPLEX 5 09/21/23 (Zithromax Z-Constantin) days #6 tabs ofloxacin 0.3 % ear drops 10 drp otic (ear) BID 14 days #10 09/21/23 mL Allergies Allergy/AdvReac Type Severity Reaction Status Date / Time cephalexin [CEPHALEXIN] Allergy Unknown Verified 09/07/23 15:46 Cephalosporins Allergy Unknown Verified 09/07/23 15:46 [CEPHALOSPORINS] Penicillins Allergy Verified 09/21/23 17:52 Worker's Comp Is this a Worker's Comp case?: No [facility] Disclaimer: The information contained in this section may have been updated after the patient was seen, as this information can be updated by other users. Medical History Allergies Surgical History History of tonsillectomy and adenoidectomy Family History Grandmother Coronary artery disease Grandfather Coronary artery disease Other Family history of hypertension Family history of myocardial infarction Social History Smoking Status: Former smoker alcohol intake: current substance use type: denies use current occupational status: employed Travel in the last 8 weeks: None household members: significant other and friend(s) housing: house lives independently: Yes marital status: single education level: college service: No caffeine: Yes special frannie needs: No do you feel safe at home: Yes victim of physical abuse: No victim of emotional abuse: No victim of sexual abuse: No would you like helpful sources: No ROS Obtained: Yes All systems reviewed & no additional complaints except as documented and Yes Systems reviewed as appropriate & no additional complaints except as documented Constitutional Constitutional: Reports system reviewed and no additional complaints, except as documented and Reports as per HPI ENT Ears, Nose, Mouth, and Throat: Reports system reviewed and no additional complaints, except as documented, Reports as per HPI and Reports otalgia Cardiovascular Cardiovascular: Reports system reviewed and no additional complaints, except as documented and Reports as per HPI Respiratory Respiratory: Reports system reviewed and no additional complaints, except as documented and Reports as per HPI Physical Exam General General appearance: alert and in no apparent distress ENT ENT exam: Present mucous membranes moist Expanded ENT Exam TM/Canal exam: Right TM: erythema and loss of landmarks Respiratory Respiratory exam: Present normal lung sounds bilaterally; Absent respiratory distress or wheezes Cardiovascular Cardiovascular exam: Present regular rate, normal rhythm and normal heart sounds Neurological Exam Neurological exam: Present alert, oriented X3 and normal gait Medical Decision Making Thomas Inquiry Pt receiving controlled substance: No Thomas was queried for this patient: No Vital Signs: 09/21/23 17:40 Temperature 99.0 F Temperature Source Oral Pulse Rate [Left Brachial] 111 H Respiratory Rate 21 Blood Pressure [Left Arm] 144/90 H Blood Pressure Mean [Left Arm] 108 Blood Pressure Source [Left Arm] Automatic Cuff Blood Pressure Position [Left Arm] Sitting 02 Sat by Pulse Oximetry 97 Oxygen Delivery Method Room Air
[2023-09-21 18:19] VITALS: BP 144/90; PULSE 111; RESP 21; TEMP 37.2; O2SAT 97
== END 2023-09-21 18:21 | disposition home or self-care (01) ==
PROVIDERS: Emergency Provider Nurse Practitioner; PCP Nurse Practitioner Family
DX: H66.91 Otitis media, unspecified, right ear (principal)
CPT/HCPCS: 99212; 99214; G0463

== ENCOUNTER 2023-10-02 17:32 | Emergency (ER) | payer BC, OTHER, SELFPAY ==
[2023-10-02 17:33] VITALS: BP 158/102; PULSE 108; RESP 18; TEMP 36.6; O2SAT 98; BMI 42.4
[2023-10-02 17:38] VITALS: BP 152/96; PULSE 108; O2SAT 99
--- NOTE | 2023-10-02 17:57 | XR_ITS ---
PROCEDURE INFORMATION: Exam: XR Right Ankle Exam date and time: 10/02/2023 6:00 PM Age: 23 years old Clinical indication: Injury or trauma; Fall; Sprain or strain; Ankle; Right; Additional info: Fell yesterday TECHNIQUE: Imaging protocol: Radiologic exam of the right ankle. Views: 3 or more views. COMPARISON: CR ANKCMRT XR ankle RT min 3V 07/21/2018 3:53 PM FINDINGS: Bones/joints: Multiple views were obtained. The osseous structures appear intact with no evidence of acute fracture, dislocation, or malalignment. Joint spaces are preserved. No abnormal bone density or destructive lesions are noted. Soft tissues: Soft tissue swelling is observed, and further clinical correlation is advised. IMPRESSION: At the time of imaging, the skeletal radiograph demonstrates no acute osseous abnormalities but does show soft tissue swelling.
[2023-10-02 18:00] VITALS: BP 133/90; PULSE 87; O2SAT 100
--- NOTE | 2023-10-02 18:06 | PC.NURSE ---
PORTABLE XRAY AT BEDSIDE
[2023-10-02 18:30] VITALS: BP 129/96; PULSE 89; O2SAT 100
--- NOTE | 2023-10-02 18:36 | ED_ITS ---
Discharge Plan Disposition Patient Disposition: Home, Self-Care Referrals Follow up/Referrals: Sue Lieberman APRN [Primary Care Provider] - See instructions Activity Restrictions/Add. Instructions Additional Instructions/Restrictions: You may bear weight as tolerated. Wear your boot and use crutches only if needed. Take ibuprofen elevate use ice follow-up with orthopedic surgery if not improving in 1 to 2 weeks. No evidence of a fracture or dislocation or x-rays. Clinical Impressions Clinical Impression: Right ankle sprain Discharge ED Provider: Deana Ervin General Adult HPI General Chief complaint: PAIN Stated complaint: AO 10/01/231929 injury Right ankle Time Seen by Provider: 10/02/23 18:32 Mode of Arrival: Ambulatory Source of Information: Patient Limitations: No Limitations Description of Symptoms (Recalled from ER Triage Doc. by RN): PT STATES SHE FELL IN A HOLE LAST NIGHT AND TWISTED HER R KNEE, STATES SHE IS ABLE TO PUT WEIGHT ON IT BUT IT IS VERY TENDER, HX OF SPRAINING THE SAME ANKLE, RATES PAIN 8/10, CONSTANT, AND SHARP, HAS BEEN ALTERNATING TYLENOL AND IBUPROFEN, ELEVATING IT, AND ICING IT History of Present Illness HPI narrative: Patient is a 23-year-old female presenting today with right ankle injury. States she actually recently hurt her left ankle is in a walking boot has orthopedic surgery follow-up and she was helping her family last night when she accidentally stepped into a hole. She has a history of ankle sprains in the remote past when she played soccer and she has difficulty with proprioception and states that she can roll her ankle easily which is what happened last night. Pain is localized to the right ankle itself. Related Data Allergies Allergy/AdvReac Type Severity Reaction Status Date / Time cephalexin [CEPHALEXIN] Allergy Unknown Verified 10/02/23 17:46 Cephalosporins Allergy Unknown Verified 10/02/23 17:46 [CEPHALOSPORINS] Penicillins Allergy Verified 10/02/23 17:46 [facility] Disclaimer: The information contained in this section may have been updated after the patient was seen, as this information can be updated by other users. Medical History Allergies Surgical History History of tonsillectomy and adenoidectomy Family History Grandmother Coronary artery disease Grandfather Coronary artery disease Other Family history of hypertension Family history of myocardial infarction Social History Smoking Status: Never smoker alcohol intake: current substance use type: denies use current occupational status: employed Travel in the last 8 weeks: None household members: significant other and friend(s) housing: house lives independently: Yes marital status: single education level: college service: No caffeine: Yes special frannie needs: No do you feel safe at home: Yes victim of physical abuse: No victim of emotional abuse: No victim of sexual abuse: No would you like helpful sources: No ROS Obtained: Yes All systems reviewed & no additional complaints except as documented Physical Exam General General appearance: alert Respiratory Respiratory exam: Present normal lung sounds bilaterally Cardiovascular Cardiovascular exam: Present regular rate and normal rhythm Extremities Exam Extremities exam: Present other (No pain with proximal compression of the tib- fib area or distal compression she does have tenderness over the bilateral malleoli and the dorsal aspect of the ankle joint itself no foot pain or tenderness) Neurological Exam Neurological exam: Present alert and oriented X3 Medical Decision Making Thomas Inquiry Pt receiving controlled substance: No Vital Signs: 10/02/23 17:33 Temperature 97.8 F Temperature Source Oral Pulse Rate [Left Radial] 108 H Respiratory Rate 18 Blood Pressure [Right Arm] 158/102 H Blood Pressure Mean [Right Arm] 120 Blood Pressure Source [Right Arm] Automatic Cuff Blood Pressure Position [Right Arm] Sitting 02 Sat by Pulse Oximetry 98 Oxygen Delivery Method Room Air Orders (Tests/Meds): ORDERS Category Date Time Status Ankle XR -Right minimum 3 Views [XR ankle RT min 3V] Exams 10/02/23 17:57 Completed Stat Medical Decision Narrative: Patient with above history and physical differential includes fracture dislocation sprain etc. X-ray performed to person interpreted which shows no acute fracture dislocation of the ankle itself. Working diagnosis is a sprain. She is already in a boot on the left side I discussed with her what type of assistive vices that she might need. She is having difficult time walking she was placed in boot on the right foot as well with crutches advised to bear weight as tolerated and follow-up orthopedic surgery if she is not improving in 1 to 2 weeks. Supportive care discussed return precautions emphasized as well. Critical Care Critical Care Time Critical Care Time: No
[2023-10-02 18:40] VITALS: BP 129/96; PULSE 81; RESP 16; TEMP 36.8; O2SAT 100
== END 2023-10-02 18:43 | disposition home or self-care (01) ==
PROVIDERS: Emergency Provider Student in an Organized Health Care Education/Training Program; PCP Nurse Practitioner Family
DX: S93.401A Sprain of unspecified ligament of right ankle, initial encounter (principal); M25.571 Pain in right ankle and joints of right foot; W18.42XA Slipping, tripping and stumbling without falling due to stepping into hole or opening, initial encounter
CPT/HCPCS: 73610; 99283

== ENCOUNTER 2023-10-04 18:34 | Outpatient (CLI) | payer BC, OTHER, SELFPAY ==
--- NOTE | 2023-10-04 18:43 | XR_ITS ---
PROCEDURE INFORMATION: Exam: XR Right Ankle Exam date and time: 10/04/2023 6:43 PM Age: 23 years old Clinical indication: Pain; Ankle; Right; Additional info: Foot pain TECHNIQUE: Imaging protocol: Radiologic exam of the right ankle. Views: 3 or more views. COMPARISON: CR XR ANKLE RT MIN 3V 10/02/2023 6:00 PM FINDINGS: Bones/joints: No visible fracture or dislocation. The mortise joint space is symmetric. Soft tissues: Normal. IMPRESSION: No visible fracture or dislocation.
--- NOTE | 2023-10-04 18:43 | XR_ITS ---
PROCEDURE INFORMATION: Exam: XR Left Foot Complete; Alignment Exam date and time: 10/04/2023 6:43 PM Age: 23 years old Clinical indication: Pain; Foot; Left; Additional info: Fracture TECHNIQUE: Imaging protocol: Radiologic exam of the left foot. Views: 3 or more views. COMPARISON: CR XR FOOT WT BEARING LT 3V 09/06/2023 2:43 PM FINDINGS: Bones/joints: Normal. No acute fracture. Joint spaces are preserved. No dislocation or subluxation. Lisfranc joint is intact. Soft tissues: Normal. IMPRESSION: 1. Normal alignment of the foot. 2. Intact Lisfranc joint
== END 2023-10-04 23:59 | disposition home or self-care (01) ==
LOC: RAD 18:37
PROVIDERS: PCP Nurse Practitioner Family; Visit Provider Nurse Practitioner
DX: M79.672 Pain in left foot (principal); M79.671 Pain in right foot
CPT/HCPCS: 73610; 73630

== ENCOUNTER 2024-01-19 13:24 | Outpatient (CLI) | payer BC, SELFPAY ==
[2024-01-19 13:23] LABS: Coronavirus 19, PCR Not Detected (NotDetected); Influenza A, PCR Not Detected (NotDetected); Influenza B, PCR Not Detected (NotDetected)
== END 2024-01-19 23:59 | disposition home or self-care (01) ==
LOC: LAB.DROPOF 01-21 13:25
PROVIDERS: PCP Internal Medicine; Visit Provider Internal Medicine
DX: R05.9 Cough, unspecified (principal)
CPT/HCPCS: 87636

== ENCOUNTER 2024-04-12 13:50 | Outpatient (CLI) | payer BC, SELFPAY ==
[2024-04-12 16:52] LABS: Coronavirus 19, PCR Not Detected (NotDetected); Influenza A, PCR Not Detected (NotDetected); Influenza B, PCR Not Detected (NotDetected)
== END 2024-04-12 23:59 | disposition home or self-care (01) ==
LOC: LAB.DROPOF 04-13 10:05
PROVIDERS: PCP Nurse Practitioner Family; Visit Provider Nurse Practitioner Family
DX: R68.89 Other general symptoms and signs (principal)
CPT/HCPCS: 87636

== ENCOUNTER 2024-09-13 12:24 | Outpatient (CLI) | payer BC, SELFPAY ==
[2024-09-13 17:30] LABS: Coronavirus 19, PCR Not Detected (NotDetected); Human Rhinovirus Not Detected (NotDetected); Influenza A, PCR Not Detected (NotDetected); Influenza B, PCR Not Detected (NotDetected); Respiratory Syncytial Virus Not Detected (NotDetected)
== END 2024-09-13 23:59 | disposition home or self-care (01) ==
LOC: LAB.DROPOF 09-15 12:26
PROVIDERS: PCP Nurse Practitioner Family; Visit Provider Nurse Practitioner Family
DX: R51.9 Headache, unspecified (principal); R50.9 Fever, unspecified
CPT/HCPCS: 87631

== ENCOUNTER 2024-11-29 11:32 | Outpatient (CLI) | payer BC, MEDICAID, SELFPAY ==
--- OUTSIDE RECORDS SUMMARY | 2024-10-03 10:15 | XMS_ITS | Encounter Summary ---
[facility] [address] [place] [address] Care Team Providers Care Sleeping Room Cleaner Name Role Phone Sue Lieberman APRN Primary Care Provider [phone] Reason for Referral * Consultation (Urgent) - Closed Specialty Diagnoses / Procedures Referred By Contact Referred To Contact Gastroenterology Diagnoses care, first in third trimester Elevated liver function tests Procedures AR OFFICE/OUTPATIENT NEW MODERATE MDM 45 MINUTES Dayanna Marvin APRN [address] [facility] [address] [place] [address] Phone: tel: fax: [facility] GASTROENTEROLOGY [address] [facility] [address] [place] [address] Phone: tel: fax: Referral ID Status Reason Start Date Expiration Date V isits Requested Visits Authorized [id number] Closed Specialty Services Required 10/03/2024 01/02/2026 1 1 Reason for Visit * Reason Comments Problem Blood pressure check Non-stress Test Encounter Details Date Type Department Care Team (Late st Contact Info) Description 10/03/2024 10:15 AM EDT Routine [facility] OBGYN [address] [place] [address] Dayanna Marvin APRN [address] [facility] [address] [place] [address] GA: 29w5d Social History Tobacco Use Types Packs/Day Years Used Date Smoking Tobacco: Never Smokeless Tobacco: Never Alcohol Use Standard Drinks/Week Comments Not Currently 2 (1 standard drink = 0.6 oz pur e alcohol) Comments Yes Sex and Gender Information Value Date Recorded Sex Assigned at Female 10/01/2024 2:08 PM EDT Legal Sex Female 10:46 AM EDT Gender Identity Not on file Sexual Orientation Not on file documented as of this encounter Last Filed Vital Signs Vital Sign Reading Time Taken Comments Blood Pressure 118/68 10/03/2024 10:44 AM EDT Pulse - - Temperature - - Respiratory Rate - - Oxygen Saturation - - Inhaled Oxygen Concentration - - Weight 132 kg (292 lb) 10/03/2024 10:44 AM EDT Height - - Body Mass Index 51.74 09/16/2024 2:28 PM EDT documented in this encounter Progress Notes * Dayanna Marvin, RELATIONS SPECIALIST - 10/03/2024 10:15 AM EDT Images from the original note were not included. CC- blood pressure check, increased LFT's Penny Kebede is a 24 y.o. 29w5d patient being seen today for a blood pressure check, NST and repeat labs. She reports occasional, mild headaches that are relieved with tylenol and naps. She also reports swelling in her BLE and hands. She reports that her home blood pressures have been averaging 120s/70s-80s since starting medication. She denies LOF, vaginal spotting, vision changes, gildardo palomo, contractions. She reports adequatefetal movement, >10 movements in 10 hours. Her care is complicated by (and status) : Patient Active Problem List Diagnosis Asthma Obesity affecting , antepartum Morbid obesity with BMI of 50.0-59.9, adult Teratogen exposure in current Gestational hypertension, antepartum Ultrasound Today: No. Non Stress Test: Yes minutes >20 non-stress test: NST: Reactive indication: Hypertension ROS - Patient Reports : swelling and headaches Patient Denies: Loss of Fluid, Vaginal Spotting, Vision Changes, Nausea , Vomiting , Contractions, Epigastric pain, and skin itching Movement : normal All other systems reviewed and are negative. The additional following portions of the patient's history were reviewed and updated as appropriate: allergies, current medications, past family history, past medical history, past social history, past surgical history, and problem list. I have reviewed and agree with the HPI, ROS, and historical information as entered above. Dayanna Laguna, RELATIONS SPECIALIST BP 118/68 Wt 132 kg (292 lb) LMP 02/25/2024 (Approximate) BMI 51.74 kg/m?? EXAM: Vitals BP: 118/68 Weight: 132 kg (292 lb) Heart Rate: NST Assessment and Plan Problem List Items Addressed This Visit Gravid and Gestational hypertension, antepartum Overview [ ] ASA 81MG until delivery [ ] Twice weekly NST's 32 weeks until delivery [ ] Growth US q4 weeks [ ] 24 hour urine [ ] Consider weekly PEP [ ] Consider early delivery at 37 weeks Relevant Medications labetalol (NORMODYNE) 200 MG tablet Other Relevant Orders Protein, Urine, 24 Hour - Urine, Clean Catch Other Visit Diagnoses care, first in third trimester - Primary Relevant Orders POC Glucose, Urine, Qualitative, Dipstick (Completed) POC Protein, Urine, Qualitative, Dipstick (Completed) AlP+ALT+AST+Creat+LD+TBili+.. Bile Acids, Total Protein, Urine, 24 Hour - Urine, Clean Catch Ambulatory Referral to Gastroenterology Elevated liver function tests Relevant Orders AlP+ALT+AST+Creat+LD+TBili+.. Bile Acids, Total Protein, Urine, 24 Hour - Urine, Clean Catch Ambulatory Referral to Gastroenterology NST reactive. BP normal, she has been taking labetalol 100 mg q am and feeling well with normal BP at home. She had bile acids and acute hep panel on 09/21, 09/23 which were normal. Will repeat PEP andbile acids (she reports mild intermittent itch in hands) and refer to GI. She has a GI provider in [place] and she will call them to schedule, I placed a referral as well. I discussed this plan with Dr. Carter who is in agreement that this may be unrelated to . at 29w5d status reassuring. NST reactive today. PEP labs done PIH precautions reviewed RTC for worsening symptoms Return for Next scheduled follow up LOS Thu NST. Dayanna Marvin APRN 10/03/2024 documented in this encounter Plan of Treatment Upcoming Encounters Date Type Department Care Team (Late st Contact Info) Description 12/01/2024 3:15 PM EDT Visit [facility] OBGYN [address] [facility] [address] [place] [address] Sheldon Godoy, ALEE [address] [facility] [address] [place] [address] [phone] 09/22/2025 2:45 PM EDT Office Visit [facility] SLEEP MEDICINE [address] [facility] [address] [place] [id number] Dave Montaño, RELATIONS SPECIALIST [address] [place] [address] Scheduled Referrals Name Type Priority Associated Diagnoses Order Schedule Ambulatory Referral to Gastroenterology Outpatient Referral Routine care, first in third trimester Elevated liver function tests Ordered: 10/03/2024 documented as of this encounter Procedures Procedure Name Priority Date/Time Associated Diagnosis Comments ALP+ALT+AST+CREAT+L D+TBILI+.. Routine 10/03/2024 11:02 AM EDT care, first in third trimester Elevated liver function tests BILE ACIDS, TOTAL Routine 10/03/2024 11: 02 AM EDT care, first in third trimester Elevated liver function tests POCT PROTEIN, URINE, QUALITATIVE, DIPSTICK Routine 10/03/2024 10:29 AM EDT care, first in third trimester POCT GLUCOSE, URINE, QUALITATIVE, DIPSTICK Routine 10/03/2024 10:29 AM EDT care, first in third trimester SCANNED - PROCEDURE 10/03/2024 documented in this encounter Results * Bile Acids, Total (10/03/2024 11:02 AM EDT) Pathologist [facility] Bile Acids Total 4.7 0.0 - 10.0 umol/L [facility] Comment:Results verified b y repeat testing Blood 10/03/2024 11:0 2 AM EDT 10/03/2024 Narrative [facility] ([facility]) - 10/05/2024 6:09 AM EDT Performed at: [address] [place] [id number] Preventative Maintenance Technician: Latasha Schwartz MD, Phone: [phone] Patient Fasting: N Dayanna Marvin RELATIONS SPECIALIST LAB BLOOD ORDERABLES Milena l Result [facility] [employer] [facility] (AMBULATORY) [address] [id number], [facility] [address] [place] [address], * (ABNORMAL) AlP+ALT+AST+Creat+LD+TBili+.. (10/03/2024 11:02 AM EDT) Pathologist [facility] Uric Acid 4.1 2.6 - 6.2 mg/dL [facility] Comment:Therapeutic target f or gout patients: <6.0 Creatinine 0.42(L) 0.57 - 1.00 mg/dL [facility] EGFR Result 139 >59 mL/min/1.7 3 [facility] Total Bilirubin <0.2 0.0 - 1.2 mg/dL [facility] Alkaline Phosphatase 110 44 - 121 IU/L [facility] LDH 184 119 - 226 IU/L [facility] AST (SGOT) 73(H) 0 - 40 IU/L [facility] ALT (SGPT) 126(H) 0 - 32 IU/L [facility] WBC 8.8 3.4 - 10.8 x10E3/uL [facility] RBC 4.01 3.77 - 5.28 x10E6/uL [facility] Hemoglobin 11.2 11.1 - 15.9 g/dL [facility] Hematocrit 35.7 34.0 - 46.6 % [facility] MCV 89 79 - 97 fL [facility] MCH 27.9 26.6 - 33.0 pg [facility] MCHC 31.4(L) 31.5 - 35.7 g/dL [facility] RDW 12.9 11.7 - 15.4 % [facility] Platelets 253 150 - 450 x10E3/uL [facility] Neutrophil Rel % 75 Not Estab. % [facility] Lymphocyte Rel % 16 Not Estab. % [facility] Monocyte Rel % 9 Not Estab. % [facility] Eosinophil Rel % 0 Not Estab. % [facility] Basophil Rel % 0 Not Estab. % [facility] Neutrophils Absolute 6.6 1.4 - 7.0 x10E3/uL [facility] Lymphocytes Absolute 1.4 0.7 - 3.1 x10E3/uL [facility] Monocytes Absolute 0.8 0.1 - 0.9 x10E3/uL [facility] Eosinophils Absolute 0.0 0.0 - 0.4 x10E3/uL [facility] Basophils Absolute 0.0 0.0 - 0.2 x10E3/uL [facility] Immature Granulocyte Rel % 0 Not Estab. % [facility] Immature Grans Absolute 0.0 0.0 - 0.1 x10E3/uL [facility] Blood 10/03/2024 11:0 2 AM EDT 10/03/2024 Narrative [facility] ([facility]) - 10/04/2024 10:10 AM EDT Performed at: [facility] - [facility] [address] [place] [id number] Preventative Maintenance Technician: Cristian Acuña PhD, Phone: [phone] Patient Fasting: N Dayanna Marvin RELATIONS SPECIALIST LAB BLOOD ORDERABLES Milena l Result [facility] ([facility]) [address] [place] [address], [facility] [address] [place] [address], [place] [phone] * POC Protein, Urine, Qualitative, Dipstick (10/03/2024 10:29 AM EDT) Protein, POC Negative Negative mg/dL [facility] Lot Number na [facility] Expiration Date na [facility] Urine 10/03/2024 10:2 9 AM EDT Dayanna Marvin APRN POINT OF CARE TEST ORDERA BLES Final Result [facility]
[address] [id number], [place] [phone] * POC Glucose, Urine, Qualitative, Dipstick (10/03/2024 10:29 AM EDT) Glucose, UA Negative Negative mg/dL [facility] Urine 10/03/2024 10:2 9 AM EDT Dayanna Marvin APRN POINT OF CARE TEST ORDERA BLES Final Result [facility]
[address] [place] [address], [place] [phone] * Procedure Scanned (10/03/2024) Dayanna Marvin APRN PROCEDURE/MINOR SURGICAL ORDERABLES Final Result documented in this encounter Visit Diagnoses Diagnosis care, first in third trimester- Primary Elevated liver function tests Other abnormal blood chemistry Gestational hypertension, antepartum documented in this encounter Care Teams Sleeping Room Cleaner Relationship Specialty Start Date End Date Sue Lieberman APRN [address] [facility] [address] [facility] [address] PCP - General Internal Medicine 03/09/24 documented as of this encounter
--- OUTSIDE RECORDS SUMMARY | 2024-10-07 08:40 | XMS_ITS | Encounter Summary ---
Author Organization [facility] ystem Address [address] [place] [address] Care Team Providers Care Envelope Machine Adjuster Name Role Phone Sue Lieberman APRN Primary Care Provider [phone] Reason for Visit * Reason Comments Routine Visit Non-stress Test Encounter Details Date Type Department Care Team (Late st Contact Info) Description 10/07/2024 8:40 AM EDT Routine [facility] OBGYN [address] [place] [address] Bhavya Carter MD [address] [place] [address] GA: 30w2d Social History Tobacco Use Types Packs/Day Years [...] Sign Reading Time Taken Comments Blood Pressure 120/82 10/07/2024 8:36 AM EDT Pulse - - Temperature - - Respiratory Rate - - Oxygen Saturation - - Inhaled Oxygen Concentration - - Weight 131 kg (289 lb) 10/07/2024 8:36 AM EDT Height - - Body Mass Index 51.21 09/16/2024 2:28 PM EDT documented in this encounter Progress Notes * Bhavya Carter MD - 10/07/2024 8:40 AM EDT Images from the original note were not included. OB FOLLOW UP CC- Here for care of Penny Kebede is a 24 y.o. 30w2d patient being seen today for her obstetrical follow up visit. Patient reports nausea in the mornings over the past week and occasional vomiting. Her care is complicated by (and status) : see below. and GHTN. Her average BP has been 110's-120's/70's. Patient Active Problem List Diagnosis Asthma Obesity affecting , antepartum Morbid obesity with BMI of 50.0-59.9, adult Teratogen exposure in current Gestational hypertension, antepartum Ultrasound Today: No Non Stress Test: Yes, 20 minutes non-stress test: NST: Reactive indication: Hypertension ROS - Patient Denies: Loss of Fluid, Vaginal Spotting, Vision Changes, Headaches, Contractions, Epigastric pain, and skin itching Movement : normal Other than what is documented in the HPI, all other systems reviewed and are negative. The additional following portions of the patient's history were reviewed and updated as appropriate: allergies and current medications. I have reviewed and agree with the HPI, ROS, and historical information as entered above. Bhavya Carter MD BP 120/82 Wt 131 kg (289 lb) LMP 02/25/2024 (Approximate) BMI 51.21 kg/m?? EXAM: Vitals BP: 120/82 Weight: 131 kg (289 lb) Heart Rate: NST Urine Glucose Read-only: Negative Urine Protein Read-only: Negative Assessment and Plan Problem List Items Addressed [...] Urine, 24 Hour - Urine, Clean Catch AlP+ALT+AST+Creat+LD+TBili+.. Ammonia Other Visit Diagnoses care, first in third trimester - Primary Relevant Orders POC Urinalysis Dipstick (Completed) AlP+ALT+AST+Creat+LD+TBili+.. Ammonia Elevated LFTs Relevant Orders AlP+ALT+AST+Creat+LD+TBili+.. Ammonia at 30w2d Elevated LFT. 24 hour pending. BP stable. She saw her GI at [facility] and has a liver u/s scheduled for suspected SIMS. Check ammonia level today - I doubt fatty liver of but precautions given. If any si/sx arise or labs change admit for further evaluation. status reassuring. 28 week labs reviewed. Activity and Exercise discussed. movement/PTL or Labor precautions No follow-ups on file. Bhavya Carter MD 10/07/2024 documented in this encounter Plan of Treatment Upcoming Encounters Date Type Department Care Team (Late st Contact Info) Description 12/01/2024 3:15 PM EDT Visit [facility] OBGYN [address] [address] Sheldon Godoy, HAIR TINTER [address] [facility] [address] [place] [address] 09/22/2025 2:45 PM EDT Office Visit [facility] SLEEP MEDICINE [address] [facility] [address] [place] [address] Dave Montaño, HAIR TINTER [address] [place] [address] documented as of this encounter Procedures Procedure Name Priority Date/Time Associated Diagnosis Comments ALP+ALT+AST+CREAT+LD +TBILI+.. Routine 10/07/2024 10:46 AM EDT care, first in third trimester Gestational hypertension, antepartum Elevated LFTs AMMONIA Routine 10/07/2024 10:46 AM EDT care, first in third trimester Gestational hypertension, antepartum Elevated LFTs PROTEIN, URINE, 24 HOUR Routine 10/07/2024 9:00 AM EDT Gestational hypertension, antepartum POCT URINALYSIS DIPSTICK, MANUAL Routine 10/07/2024 8:50 AM EDT care, first in third trimester SCANNED - PROCEDURE 10/07/2024 documented in this encounter Results * (ABNORMAL) Ammonia (10/07/2024 10:46 AM EDT) Pathologist [facility] Ammonia 114(H) 29 - 112 ug/dL [facility] Blood 10/07/2024 10:4 6 AM EDT 10/07/2024 Tea [facility] [employer] (AMBULATORY) - 10/11/2024 11:11 AM EDT Performed at: - [address] [id number] Glue Sprayer: Cristian Acuña PhD, Phone: [phone] Patient Fasting: N us Bhavya Carter MD LAB BLOOD ORDERABLES Final Resu lt [facility] [employer] (AMBULATORY) [address] [place] [address], [facility] [address] [place] [address], * (ABNORMAL) AlP+ALT+AST+Creat+LD+TBili+.. (10/07/2024 10:46 AM EDT) Uric Acid 4.5 2.6 - 6.2 mg/dL [facility] Comment:Therapeutic target f or gout patients: <6.0 Creatinine 0.42(L) 0.57 - 1.00 mg/dL [facility] EGFR Result 139 >59 mL/min/1.7 3 [facility] Total Bilirubin 0.2 0.0 - 1.2 mg/dL [facility] Alkaline Phosphatase 116 44 - 121 IU/L [facility] LDH 192 119 - 226 IU/L [facility] AST (SGOT) 75(H) 0 - 40 IU/L [facility] ALT (SGPT) 113(H) 0 - 32 IU/L [facility] WBC 9.1 3.4 - 10.8 x10E3/uL [facility] RBC 4.09 3.77 - 5.28 x10E6/uL [facility] Hemoglobin 11.6 11.1 - 15.9 g/dL [facility] Hematocrit 35.9 34.0 - 46.6 % [facility] MCV 88 79 - 97 fL [facility] MCH 28.4 26.6 - 33.0 pg [facility] MCHC 32.3 31.5 - 35.7 g/dL [facility] RDW 13.2 11.7 - 15.4 % [facility] Platelets 229 150 - 450 x10E3/uL [facility] Neutrophil Rel % 74 Not Estab. % [facility] Lymphocyte Rel % 18 Not Estab. % [facility] Monocyte Rel % 8 Not Estab. % [facility] Eosinophil Rel % 0 Not Estab. % [facility] Basophil Rel % 0 Not Estab. % [facility] Neutrophils Absolute 6.7 1.4 - 7.0 x10E3/uL [facility] Lymphocytes Absolute 1.6 0.7 - 3.1 x10E3/uL [facility] Monocytes Absolute 0.7 0.1 - 0.9 x10E3/uL [facility] Eosinophils Absolute 0.0 0.0 - 0.4 x10E3/uL [facility] Basophils Absolute 0.0 0.0 - 0.2 x10E3/uL [facility] Immature Granulocyte Rel % 0 Not Estab. % [facility] Immature Grans Absolute 0.0 0.0 - 0.1 x10E3/uL [facility] Blood 10/07/2024 10:4 6 AM EDT 10/07/2024 Narrative [facility] (AMBULATORY) - 10/08/2024 7:09 AM EDT Performed at: 01 - [facility] [id number] Glue Sprayer: Cristian Acuña PhD, Phone: [phone] Patient Fasting: N us Bhavya Carter MD LAB BLOOD ORDERABLES Final Resu lt Performing Organization Address [facility]/ZIP Co de Phone Number [facility] (AMBULATORY) [address] [place] [address], [place] [phone] [facility] [address] [place] [address], [place] [phone] * (ABNORMAL) Protein, Urine, 24 Hour - Urine, Clean Catch (10/07/2024 9:00 AM EDT) Total Protein, Urine 7.5 mg/dL [facility] Protein, 24H Urine 1,875.1(H) 0.0 - 150.0 mg/24hours [facility] 24 Hour Urine Urine specimen obtained by clean catch procedure / Unknown 10/07/2024 9:00 AM EDT 10/07/2024 Narrative [facility] ([facility] - 10/07/2024 7:09 PM EDT Performed at: [address] [place] [id number] Glue Sprayer: Jeremy Emanuel MD, Phone: [phone] Patient Fasting: N us Bhavya Carter MD URINE ORDERABLES Final Result Performing Organization Address [facility] Co de Phone Number [facility] (AMBUL[facility]ORY) [address] [place] [address], [place] [phone] [facility] [address] [place] [address], [place] [phone] * POC Urinalysis Dipstick (10/07/2024 8:50 AM EDT) Glucose, UA Negative Negative mg/dL [facility] Protein, POC Negative Negative mg/dL [facility] Urine 10/07/2024 8:50 AM EDT us Bhavya Carter MD POINT OF CARE TEST ORDERABLES F inal Result Performing Organization Address City/[facility]/ZIP Co de Phone Number [facility]
[address] [place], [place] [address] [phone] * Procedure Scanned (10/07/2024) Bhavya Carter MD PROCEDURE/MINOR SURGICAL ORDERA BLES Final Result documented in this encounter Visit Diagnoses Diagnosis care, first in third trimester- Primary Gestational hypertension, antepartum Elevated LFTs Other abnormal blood chemistry documented in this encounter Care Teams Envelope Machine Adjuster Relationship Specialty Start Date End Date Sue Lieberman APRN [address] [place] [address] PCP - General Internal Medicine 03/09/24 documented as of this encounter
--- OUTSIDE RECORDS SUMMARY | 2024-10-10 16:15 | XMS_ITS | Encounter Summary ---
[facility] Address [address] [place] [address] Care Team Providers Care Associate Product Manager Name Role Phone Sue Lieberman ALEE Primary Care Provider [phone] Reason for Visit * Auth/Cert (Routine) Specialty Diagnoses / Procedures Referred By Contac t Referred To Contact Diagnoses Severe preeclampsia Referral ID Status Reason Start Date Expiration Date Visits Re quested Visits Authorized [id number] 1 1 Encounter Details Date Type Department Care Team (Late st Contact Info) Description 10/10/2024 4:15 PM EDT - 10/14/2024 2:11 PM EDT Hospital Encounter [facility] [address] [place] [id number] Karan Mayo MD [address] [facility] [address] [place] [address] Gestational hypertension, antepartum (Primary Dx); Pre-eclampsia in third trimester Discharge Disposition: Home or Self Care Social History Tobacco Use Types Packs/Day Years Used Date Smoking Tobacco: Never Smokeless Tobacco: Never Alcohol Use Standard Drinks/Week Comments Not Currently 2 (1 standard drink = 0.6 oz pur e alcohol) [facility] Utilities Answer Date Recorded In the past 12 months has e electric, gas, oil, or water company threatened to shut off services in your home? No 10/13/2024 AUDIT-C Answer Date Recorded Q1: How often do you have a drink containing alcohol? Never 10/13/2024 Q2: How many drinks containi ng alcohol do you have on a typical day when you are drinking? Patient does not drink Q3: How often do you have si x or more drinks on one occasion? Never 10/13/2024 Overall Financial Resource Strain (CARDIA) Answe r Date Recorded How hard is it for you to pa y for the very basics like food, housing, medical care, and heating? Not hard at all 10/13/2024 [facility] - Occupational Stress Questionnaire Answer Date Recorded Do you feel stress - tense, restless, nervous, or anxious, or unable to sleep at night because your mind is troubled all the time - these days? Not at all 10/13/2024 Exercise Vital Sign Answer Date Recorde d On average, how many days pe r week do you engage in moderate to strenuous exercise (like a brisk walk)? 3 days 10/13/2024 On average, how many minutes do you engage in exercise at this level? 30 min 10/13/2024 Hunger Vital Sign Answer Date Recorded Within the past 12 months, y ou worried that your food would run out before you got the money to buy more. Never true 10/14/19 25 Within the past 12 months, t he food you bought just didn't last and you didn't have money to get more. Never true 10/13/2024 PRAPARE - Transportation Answer Date Re corded In the past 12 months, has l ack of transportation kept you from medical appointments or from getting medications? No 10/02 In the past 12 months, has l ack of transportation kept you from meetings, work, or from getting things needed for daily living? No 10/13/2024 Abuse Screen Answer Date Recorded Feels Unsafe at Home or Work/School no 10/13/2024 Feels Threatened by Someone no 10/02 Does Anyone Try to Keep You From Having Contact with Others or Doing Things Outside Your Home? no 10/13/2024 Physical Signs of Abuse Present no 10/13/2024 Housing Stability Answer Date Recorded Current Living Arrangements home 10/02 Potentially Unsafe Housing Conditions none 10/13/2024 Family and Community Support Answer Jean-Claude e Recorded If for any reason you need h elp with day-to-day activities such as bathing, preparing meals, shopping, managing finances, etc., do you get the help you need? I don't need any help 10/13/2024 How often do you feel lonely or isolated from those around you? Never 10/13/2024 Employment Answer Date Recorded Do you want help finding or keeping work or a job? I do not need or want help 10/13/2024 Disabilities Answer Date Recorded Difficulty Concentrating, Remembering or Making Decisions no 10/10/2024 Difficulty Managing Errands Independently no 10/10/2024 Education Answer Date Recorded Do you want help with school or training? For example, starting or completing job training or getting a high school diploma, GED or equivalent No 10/13/2024 Preferred Language Venezuelan 10/13/2024 PHQ-2 Answer Date Recorded Patient Health Questionnaire-2 Score 0 10/13/2024 Comments Yes Sex and Gender Information Value Date Recorded Sex Assigned at Female 10/01/2024 2:08 PM EDT Legal Sex Female 10:46 AM EDT Gender Identity Not on file Sexual Orientation Not on file documented as of this encounter Last Filed Vital Signs Vital Sign Reading Time Taken Comments Blood Pressure 115/65 10/14/2024 12:35 PM EDT Pulse 91 10/14/2024 12:35 PM EDT Temperature 36.9 C (98.5 F) 10/14/2024 12:35 PM EDT Respiratory Rate 16 10/14/2024 12:35 PM EDT Oxygen Saturation - - Inhaled Oxygen Concentration - - Weight - - Height - - Body Mass Index - - documented in this encounter Functional Status * Audit-C Score Answer Date of Assessment Author 0 10/13/2024 2:00 AM EDT Marquita Cortes, TOOTIE * Question Answer Date of Assessment Author Q1: How often do you have a drink containing alcohol? Never 10/13/2024 2:00 AM EDT Marquita Cortes, TOOTIE Q2: How many drinks containing alcohol do you have on a typical day when you are drinking? Patient does not drink 10/13/2024 2:00 AM EDT Marquita Cortes, RN Q3: How often do you have six or more drinks on one occasion? Never 10/13/2024 2:00 AM EDT Marquita Cortes, RN * Over the past 2 weeks, how often have you been bothered by any of the following problems? Question Answer Date of Assessment Author Patient Health Questionnaire -2 Score 0 10/13/2024 2:00 AM EDT Marquita Cortes RN * Question Answer Date of Assessment Author 1. Wish to be (Past 1 Month) No 025 4:51 PM EDT Alicia Day RN 2. Non-Specific Active Suici alexis Thoughts (Past 1 Month) No 10/10/2024 4:51 PM EDT Merrick Day RN * Calculated C-SSRS Risk Score (Lifetime/Recent) Answer Date of Assessment Author No Risk Indicated 10/10/2024 4:51 PM EDT Alicia Day RN * [place] Suicide Severity Rating Scale (Screener/Recent Self-Report) Question Answer Date of Assessment Author 6. Suicidal Behavior (Lifetime) No 4:51 PM EDT Alicia Day RN * Question Answer Date of Assessment Author Little interest or pleasure in doing things Not at all 10/13/2024 2:00 AM EDT Marquita Cortes RN Feeling down, depressed, or hopeless Not at all 10/13/2024 2:00 AM EDT Marquita Cortes RN documented as of this encounter Discharge Summaries * Karan Mayo MD - 10/14/2024 1:04 PM EDT Admission date: 10/10/2024 Discharge date: 10/14/24 Referring Provider: Karan Mayo MD Admission diagnosis: Severe preeclampsia [O14.10] Discharge diagnosis: Gestational HTN ELevated LFT Consultants: [facility] Hospital course: 24-year-old G1 admitted at 30-5/7 weeks who had been being followed for mild elevated blood pressures and elevated liver enzymes in the office initial 24-hour urine was less than 300however repeat due to persistent elevation in her liver functions showed approximately 2 g of protein therefore she was admitted for steroids and further evaluation for severe preeclampsia. On admission blood pressures were stable on 200 of labetalol 3 times daily liver functions were somewhat decreased from previous evaluation she had had a normal hepatitis panel and [facility] ordered. Given grams of protein however concern was for severe preeclampsia with impending help syndrome urine dips were negative and therefore decision was made to repeat her 24-hour urine which came back less than 200 mg. She was nolonger felt to have preeclampsia and the liver functions were stable despite being elevated. Ultrasound was normal. Baby had had a PDC scan showed a normally grown fetus and good fluid with a BPP of 8 out of 8.. At this point was felt that the follow-up outpatient 24-hour urine was erroneous and she was sent home for outpatient management of gestational hypertension continued surveillance of liver functions biweekly NSTs and every 4 week ultrasound. Vitals: 10/14/24 1235 BP: 115/65 Pulse: 91 Resp: 16 Temp: 98.5 ??F (36.9 ??C) GENERAL: Well-developed, well-nourished in no acute distress. ABD: Gravid NST: Reactive EXTREMITIES: No clubbing, cyanosis or edema. PSYCHIATRIC: Normal affect and mood. NST NOTE Indiction : Gest HTN FHR: Reactive, Cat 1, No decels Contractions: Irregular Time Monitored: > 20 minutes Discharge condition: stable Discharge diet Additional Instructions: Call with fevers, uncontrolled nausea/vomiting/pain. Medications: Discharge Medications PAUSE taking these medications Instructions Start Date MiraLax 17 GM/SCOOP powder Wait to take this until: October 15, 2024 Morning Generic drug: polyethylene glycol 17 g, Daily Changes to Medications Instructions Start Date labetalol 200 MG tablet Commonly known as: NORMODYNE What changed: additional instructions 200 mg, Oral, 3 times daily Continue These Medications Instructions Start Date amitriptyline 50 MG tablet Commonly known as: ELAVIL 50 mg, Nightly aspirin 81 MG chewable tablet 81 mg, Daily cetirizine 10 MG tablet Commonly known as: zyrTEC 10 mg, Daily docusate sodium 100 MG capsule Commonly known as: Colace 100 mg, Oral, 2 Times Daily montelukast 10 MG tablet Commonly known as: SINGULAIR 10 mg, Oral, Daily Stop These Medications azithromycin 250 MG tablet Commonly known as: ZITHROMAX ferrous sulfate 325 (65 FE) MG tablet fluticasone 50 MCG/ACT nasal spray Commonly known as: FLONASE vitamin 27-0.8 27-0.8 MG tablet tablet trimethoprim-polymyxin b 86933-0.1 UNIT/ML-% ophthalmic solution Commonly known as: POLYTRIM Disposition:Home or Self Care Follow up: Future Appointments Date Time Provider Department Center 10/18/2024 10:20 AM Karan Mayo MD [id number] 10/20/2024 4:00 PM Karan Mayo MD [id number] 09/22/2025 2:45 PM SabraDave APRN [facility] Over 30 minutes on discharge. Counseling and coordinating care. 24 hour urine to return to office on Thursday. Karan Mayo MD documented in this encounter Discharge Instructions * Attachments The following attachments cannot be sent through Care Everywhere. * High Blood Pressure and (Pre-Eclampsia and Eclampsia): What to Know (Venezuelan) * Third Trimester of (Venezuelan) * 24-Hour Urine Collection (Venezuelan) documented in this encounter Medications at Time of Discharge amitriptyline (ELAVIL) 50 MG tablet Take 1 tablet by mouth Every Night. montelukast (SINGULAIR) 10 MG tablet Take 1 tablet by mouth Daily. 30 tablet 9 05/05/2024 05/05/2025 aspirin 81 MG chewable tablet Chew 1 tablet Daily. 11/28/2024 cetirizine (zyrTEC) 10 MG tablet Take 1 tablet by mouth Daily. 11/28/2024 docusate sodium (Colace) 100 MG capsuleIndication s:Iron deficiency anemia during Take 1 capsule by mouth 2 (Two) Times a Day. 60 capsule 2 09/25/2024 11/28/2024 labetalol (NORMODYNE) 200 MG tablet Take 1 tablet by mouth 3 times a day. 90 tablet 6 09/21/2024 10/18/2024 polyethylene glycol (MiraLax) 17 GM/SCOOP powder Take 17 g by mouth Daily. 10/28/2024 documented as of this encounter Progress Notes * Karan Mayo MD - 10/13/2024 1:07 PM EDT Images from the original note were not included. Daily Progress Note Patient name: Penny Uribe Date of : 2000 Admission Date: 10/10/2024 Date of Service: 10/13/2024 Referring Provider: Karan Mayo MD Penny Uribe is a 24 y.o. at 31w1d admitted on 10/10/2024 for Severe preeclampsia Hospital day 2 Diagnoses: Patient Active Problem List Diagnosis *Severe preeclampsia [O14.10] Gestational hypertension, antepartum [O13.9] Morbid obesity with BMI of 50.0-59.9, adult [E66.01, Z68.43] [Z34.90] Teratogen exposure in current [O35.9XX0] Obesity affecting , antepartum [O99.210] Asthma [J45.909] Chief Complaint: No chief complaint on file. Subjective: Penny has no complaints today. Reports movement is normal Denies leakage of amniotic fluid. Denies vaginal bleeding Objective: Vital signs: Temp: [97.3 ??F (36.3 ??C)-98.5 ??F (36.9 ??C)] 98.5 ??F (36.9 ??C) Heart Rate: [86-99] 86 Resp: [16-20] 20 BP: (111-128)/(56-74) 123/68 Abdomen: soft, nontender Uterus: gravid, nontender Extremities: nontender; no edema NST NOTE Indiction : PIH FHR: Reactive, Cat 1, No decels Contractions: Irregular Time Monitored: > 20 minutes Most recent ultrasound: 10/11 Medications: amitriptyline, 50 mg, Oral, Nightly aspirin, 81 mg, Oral, Nightly cetirizine, 10 mg, Oral, Nightly docusate sodium, 100 mg, Oral, BID ferrous sulfate, 325 mg, Oral, Daily With Breakfast labetalol, 100 mg, Oral, Daily montelukast, 10 mg, Oral, Nightly sodium chloride, 10 mL, Intravenous, Q12H acetaminophen bisacodyl calcium carbonate lidocaine PF 1% ondansetron ODT OR ondansetron sodium chloride sodium chloride Labs: Lab Results (last 24 hours) Procedure Component Value Units Date/Time Protein, Urine, 24 Hour - Urine, Clean Catch [[id number]] (Abnormal) Collected: 06/11/25 2102 Specimen: 24 Hour Urine from Urine, Clean Catch Updated: 10/12/242124 Protein, 24H Urine 180.0 mg/24hours 24H Urine Volume 4,000 mL Time (Hours) 24 hrs Narrative: Reference ranges are based on a 24 hour period, interperet results accordingly. Lab Results Component Value Date HGB 10.9 (L) 10/12/2024 Assessment/Plan: Penny is a 24 y.o. at 31w1d. 1. Severe preeclampsia: 24 hour urine did not confirm previous results therefore dx of preeclampsiaquestionable. Liver u/s pending. Labs in am. BP good on Labetalol. Denies BOYCE,scotomata or RUQ pain. 2. SCUDS 3. : NSTs TID 4. Delivery plan: Vertex, desires . All questions were answered to the best of my ability. Karan Mayo MD 10/13/2024 * Karan Mayo MD - 10/12/2024 1:27 PM EDT Images from the original note were not included. Daily Progress Note Patient name: Penny Uribe Date of : 2000 Admission Date: 10/10/2024 Date of Service: 10/12/2024 Referring Provider: Karan Mayo MD Penny Uribe is a 24 y.o. at 31w0d admitted on 10/10/2024 for Severe preeclampsia Hospital day 1 Diagnoses: Patient Active Problem List Diagnosis *Severe preeclampsia [O14.10] Gestational hypertension, antepartum [O13.9] Morbid obesity with BMI of 50.0-59.9, adult [E66.01, Z68.43] [Z34.90] Teratogen exposure in current [O35.9XX0] Obesity affecting , antepartum [O99.210] Asthma [J45.909] Chief Complaint: Preeclampsia with severe features. Subjective: Penny has no complaints today. Reports movement is normal Denies leakage of amniotic fluid. Denies vaginal bleeding Objective: Vital signs: Temp: [98.2 ??F (36.8 ??C)-99.4 ??F (37.4 ??C)] 98.2 ??F (36.8 ??C) Heart Rate: [75-96] 96 Resp: [16-18] 16 BP: (112-125)/(57-71) 117/59 Abdomen: soft, nontender Uterus: gravid, nontender Extremities: nontender; no edema NST NOTE Indiction : Severe PIH FHR: Reactive, Cat 1, No decels Contractions: Irregular Time Monitored: > 20 minutes Most recent ultrasound: 10/11 Medications: amitriptyline, 50 mg, Oral, Nightly aspirin, 81 mg, Oral, Nightly cetirizine, 10 mg, Oral, Nightly docusate sodium, 100 mg, Oral, BID ferrous sulfate, 325 mg, Oral, Daily With Breakfast labetalol, 100 mg, Oral, Daily montelukast, 10 mg, Oral, Nightly vitamin 27-0.8, 1 tablet, Oral, Nightly sodium chloride, 10 mL, Intravenous, Q12H acetaminophen bisacodyl calcium carbonate lidocaine PF 1% ondansetron ODT OR ondansetron sodium chloride sodium chloride Labs: Lab Results (last 24 hours) Procedure Component Value Units Date/Time CBC & Differential [[id number]] (Abnormal) Collected: 10/12/24519 Specimen: Blood Updated: 10/12/24730 Narrative: The following orders were created for panel order CBC & Differential. Procedure Abnormality Status --------- ------ CBC Auto Differential[[id number]] Abnormal Final result Scan Slide[[id number]] Normal Final result Please view results for these tests on the individual orders. Scan Slide [[id number]] (Normal) Collected: 10/12/24519 Specimen: Blood Updated: 10/12/24730 RBC Morphology Normal WBC Morphology Normal Platelet Morphology Normal CBC Auto Differential [[id number]] (Abnormal) Collected: 10/12/24519 Specimen: Blood Updated: 10/12/24730 WBC 12.64 10*3/mm3 RBC 3.81 10*6/mm3 Hemoglobin 10.9 g/dL Hematocrit 34.6 % MCV 90.8 fL MCH 28.6 pg MCHC 31.5 g/dL RDW 15.2 % RDW-SD 49.0 fl MPV 10.7 fL Platelets 169 10*3/mm3 Neutrophil % 82.3 % Lymphocyte % 11.0 % Monocyte % 5.3 % Eosinophil % 0.0 % Basophil % 0.1 % Immature Grans % 1.3 % Neutrophils, Absolute 10.40 10*3/mm3 Lymphocytes, Absolute 1.39 10*3/mm3 Monocytes, Absolute 0.67 10*3/mm3 Eosinophils, Absolute 0.00 10*3/mm3 Basophils, Absolute 0.01 10*3/mm3 Immature Grans, Absolute 0.17 10*3/mm3 nRBC 0.0 /100 WBC Preeclampsia Panel [[id number]] (Abnormal) Collected: 10/12/24519 Specimen: Blood Updated: 10/12/24613 Alkaline Phosphatase 90 U/L ALT (SGPT) 125 U/L AST (SGOT) 81 U/L Creatinine 0.38 mg/dL Total Bilirubin 0.2 mg/dL LDH 201 U/L Uric Acid 4.1 mg/dL Lab Results Component Value Date HGB 10.9 (L) 10/12/2024 Assessment/Plan: Penny is a 24 y.o. at 31w0d. 1. Severe preeclampsia: s/p ANCS. On Labetalol. Check labs qod. Repeat 24 hour urine. Continue Labetalol. Plan inpatient stay due to severe features ( LFT ) and significant proteinuria increasing risk of abruption. 2. SCUDs 3. : NSTs tid; 4. Delivery plan: desires , All questions were answered to the best of my ability. Karan Mayo MD 10/12/2024 * Karan Mayo MD - 10/11/2024 7:09 PM EDT Daily Progress Note Patient name: Penny Uribe Date of : 2000 Admission Date: 10/10/2024 Date of Service: 10/11/2024 Referring Provider: Karan Mayo MD Penny Uribe is a 24 y.o. at 30w6d admitted on 10/10/2024 for Severe preeclampsia Hospital day 0 Diagnoses: Patient Active Problem List Diagnosis *Severe preeclampsia [O14.10] Gestational hypertension, antepartum [O13.9] Morbid obesity with BMI of 50.0-59.9, adult [E66.01, Z68.43] [Z34.90] Teratogen exposure in current [O35.9XX0] Obesity affecting , antepartum [O99.210] Asthma [J45.909] Chief Complaint: No chief complaint on file. Subjective: Penny has no complaints today. Reports movement is good. Denies BOYCE, scotomata or RUQ pain Objective: Vital signs: Temp: [97.9 ??F (36.6 ??C)-98.4 ??F (36.9 ??C)] 98.3 ??F (36.8 ??C) Heart Rate: [77-100] 87 Resp: [16-18] 16 BP: (102-127)/(56-67) 121/59 Abdomen: soft, nontender Uterus: gravid, nontender Extremities: nontender; no edema NST NOTE Indiction : Atypical preeclampsia FHR: Reactive, Cat 1, No decels Contractions: Irregular Time Monitored: > 20 minutes Most recent ultrasound: PDC today Medications: amitriptyline, 50 mg, Oral, Nightly aspirin, 81 mg, Oral, Nightly cetirizine, 10 mg, Oral, Nightly docusate sodium, 100 mg, Oral, BID ferrous sulfate, 325 mg, Oral, Daily With Breakfast labetalol, 100 mg, Oral, Daily montelukast, 10 mg, Oral, Nightly vitamin 27-0.8, 1 tablet, Oral, Nightly sodium chloride, 10 mL, Intravenous, Q12H acetaminophen bisacodyl calcium carbonate lidocaine PF 1% ondansetron ODT OR ondansetron sodium chloride sodium chloride Labs: Lab Results (last 24 hours) Procedure Component Value Units Date/Time Treponema pallidum AB w/Reflex RPR [[id number]] (Normal) Collected: 10/10/24 1712 Specimen: Blood Updated: 10/10/24 1573 Treponemal AB Total Non-Reactive Narrative: Reactive results will reflex RPR testing. Lab Results Component Value Date HGB 11.1 (L) 10/10/2024 Assessment/Plan: Penny is a 24 y.o. at 30w6d. 1. Severe preeclampsia: by LFTs. Repeat in am. Significant proteinuria - will repeat to be sure butif this elevated increased risk of abruption requires inpatient stay. Liver u/s ordered. 2. Continue labetalol. 3. : NSTs TID, weekly BPP Plan induction at 34 weeks if vertex. 4. Delivery plan: Plan for All questions were answered to the best of my ability. Karan Mayo MD 10/11/2024 documented in this encounter H&P Notes * Shilpa De Leon APRN - 10/10/2024 6:30 PM EDT Images from the original note were not included. Shilpa De Leon APRN Nurse Practitioner [employer] H&P Cosign Needed Encounter Date: 10/10/2024 Related encounter: Prep for Surgery from 10/10/[address] [facility] ORDERS ONLY with Shilpa De Leon APRN Cosign Needed Expand All Collapse All Obstetric History and Physical Preeclampsia Subjective Patient is a 24 y.o. female currently at 30w5d, who presents with elevated 24 hour urine protein at 1875 and elevated liver enzymes. Her care is complicated by pre-eclampsia. Her blood pressure has been controlled with labetalol 100mg once daily. She was originally started on labetalol 200mg TID, but this was causing hypotension and so was decreased. Her liver enzymes were first drawn 09/14 and ALT was elevated at 57. 24hr urine on 09/19 was 112. On 09/21 LFTs were significantly more elevated, ALT 155 and AST 84. They have remained stable around that level. 24 hr urine was turned in on 10/07 and resulted today at 1,875. Her previous obstetric/gynecological history is noted for is remarkable for use of elavil, which may increase the risk for withdrawal symptoms. The following portions of the patients history were reviewed and updated as appropriate: current medications, allergies, past medical history, past surgical history, past family history, past social history, and problem list . Information: Results Initial Labs Test Value Reference Range Date Time Hemoglobin 13.0 g/dL 11.1 - 15.9 04/22/24 Hematocrit 39.8 % 34.0 - 46.6 04/22/24 Platelets 270 x10E3/uL 150 - 450 04/22/24 Rubella IgG 4.11 index Immune >0.99 04/22/24 Hepatitis B SAg Negative Negative 09/23/24 1430 Negative Negative 04/22/24 Hepatitis C Ab Non Reactive Non Reactive 04/22/24 RPR Non Reactive Non Reactive 09/21/24 1017 Non Reactive Non Reactive 04/22/24 T. Pallidum Ab ABO O 04/22/24 Rh Positive 04/22/24 Antibody Screen Negative Negative 04/22/24 HIV Non Reactive Non Reactive 04/22/24 Urine Culture Final report 04/22/24 Gonorrhea Negative Negative 04/22/24 Chlamydia Negative Negative 04/22/24 TSH HgB A1c Varicella IgG Hemoglobinopathy Fractionation Hemoglobinopathy (genetic testing) Cystic fibrosis Spinal muscular atrophy Fragile X testing Test Value Reference Range Date Time NIPT MSAFP AFP-4 2nd and 3rd Trimester Test Value Reference Range Date Time Hemoglobin (repeated) 11.6 g/dL 11.1 - 15.9 10/07/24 1046 11.2 g/dL 11.1 - 15.9 10/03/24 1102 11.6 g/dL 12.0 - 15.9 09/29/24 1022 10.8 g/dL 12.0 - 15.9 09/23/24 1430 11.3 g/dL 11.1 - 15.9 09/21/24 1017 12.1 g/dL 11.1 - 15.9 09/14/24 1358 Hematocrit (repeated) 35.9 % 34.0 - 46.6 10/07/24 1046 35.7 % 34.0 - 46.6 10/03/24 1102 34.5 % 34.0 - 46.6 09/29/24 1022 32.8 % 34.0 - 46.6 09/23/24 1430 34.7 % 34.0 - 46.6 09/21/24 1017 37.5 % 34.0 - 46.6 09/14/24 1358 Platelets 229 x10E3/uL 150 - 450 10/07/24 1046 253 x10E3/uL 150 - 450 10/03/24 1102 291 10*3/mm3 140 - 450 09/29/24 1022 277 10*3/mm3 140 - 450 09/23/24 1430 273 x10E3/uL 150 - 450 09/21/24 1017 235 x10E3/uL 150 - 450 09/14/24 1358 270 x10E3/uL 150 - 450 04/22/24 1 hour GTT 107 mg/dL 70 - 139 09/21/24 1017 Antibody Screen (repeated) Negative Negative 09/21/24 1017 3rd TM syphilis scrn (repeated) RPR Non Reactive Non Reactive 09/21/24 1017 3rd TM syphilis scrn (repeated) TP-Ab 3rd TM syphilis screen TB-Ab (FTA) Syphilis cascade test TP-Ab (EIA) Syphilis cascade TPPA GTT Fasting GTT 1 Hr GTT 2 Hr GTT 3 Hr Group B Strep Other testing Test Value Reference Range Date Time Parvo IgG CMV IgG Drug Screening Test Value Reference Range Date Time Amphetamine Screen Negative ng/mL Hdfnlf=0563 04/22/24 Barbiturate Screen Negative ng/mL Xnwyyj=128 04/22/24 Benzodiazepine Screen Negative ng/mL Ovfuhg=417 04/22/24 Methadone Screen Negative ng/mL Icvfxd=512 04/22/24 Phencyclidine Screen Negative ng/mL Cutoff=25 04/22/24 Opiates Screen Negative ng/mL Qwzrhd=592 04/22/24 THC Screen Negative ng/mL Cutoff=20 04/22/24 Cocaine Screen Negative ng/mL Hngagc=872 04/22/24 Propoxyphene Screen Negative ng/mL Aixhtk=228 04/22/24 Buprenorphine Screen Methamphetamine Screen Oxycodone Screen Tricyclic Antidepressants Screen Legend ^: Historical External Results Outside Results - Transcribed From Office Records - See Scanned Records For Details Test Value Date Time ABO O 04/22/24 Rh Positive 04/22/24 Antibody Screen Negative 09/21/24 1017 Negative 04/22/24 Varicella IgG Rubella 4.11 index 04/22/24 Hgb 11.6 g/dL 10/07/24 1046 11.2 g/dL 10/03/24 1102 11.6 g/dL 09/29/24 1022 10.8 g/dL 09/23/24 1430 11.3 g/dL 09/21/24 1017 12.1 g/dL 09/14/24 1358 13.0 g/dL 04/22/24 Hct 35.9 % 10/07/24 1046 35.7 % 10/03/24 1102 34.5 % 09/29/24 1022 32.8 % 09/23/24 1430 34.7 % 09/21/24 1017 37.5 % 09/14/24 1358 39.8 % 04/22/24 HgB A1c 1h GTT 107 mg/dL 09/21/24 1017 3h GTT Fasting 3h GTT 1 hour 3h GTT 2 hour 3h GTT 3 hour Gonorrhea (discrete) Negative 04/22/24 Chlamydia (discrete) Negative 04/22/24 RPR Non Reactive 09/21/24 1017 Non Reactive 04/22/24 Syphils cascade: TP-Ab (FTA) TP-Ab TP-Ab (EIA) TPPA HBsAg Negative 09/23/24 1430 Negative 04/22/24 Herpes Simplex Virus PCR Herpes Simplex VIrus Culture HIV Non Reactive 04/22/24 Hep C RNA Quant PCR Hep C Antibody Non Reactive 04/22/24 AFP NIPT Cystic Fibrosis (Emma) Cystic Fibroisis Spinal Muscular atrophy Fragile X Group B Strep GBS Susceptibility to Clindamycin GBS Susceptibility to Erythromycin Fibronectin Genetic Testing, Maternal Blood Drug Screening Test Value Date Time Urine Drug Screen Amphetamine Screen Negative ng/mL 04/22/24 Barbiturate Screen Negative ng/mL 04/22/24 Benzodiazepine Screen Negative ng/mL 04/22/24 Methadone Screen Negative ng/mL 04/22/24 Phencyclidine Screen Negative ng/mL 04/22/24 Opiates Screen THC Screen Cocaine Screen Propoxyphene Screen Negative ng/mL 04/22/24 Buprenorphine Screen Methamphetamine Screen Oxycodone Screen Tricyclic Antidepressants Screen Legend ^: Historical Past OB History: OB History Para Term AB Living 1 0 0 0 0 0 SAB IAB Ectopic Molar Multiple Live Births 0 0 0 0 0 0 # Outcome Date GA Lbr Hawk/2nd Weight Sex Type Anes PTL Lv 1 Current Past Medical History: Medical History Past Medical History: Diagnosis Date Asthma uses prn Gestational hypertension, antepartum 09/21/2024 PONV (postoperative nausea and vomiting) 07/28/2024 Sleep apnea 2024 has c-pap Past Surgical History Surgical History Past Surgical History: Procedure Laterality Date TONSILLECTOMY AND ADENOIDECTOMY age 6 WISDOM TOOTH EXTRACTION 2018 Family History: Family History Problem Relation Age of Onset Hypertension Father Hypertension Mother Hypertension Paternal Grandfather Hypertension Paternal Grandmother Hypertension Maternal Grandmother Hypertension Maternal Aunt Breast cancer Neg Hx Ovarian cancer Neg Hx Uterine cancer Neg Hx Colon cancer Neg Hx Social History: reports that she has never smoked. She has never used smokeless tobacco. reports that she does not currently use alcohol after a past usage of about 2.0 standard drinks of alcohol per week. reports no history of drug use. Review of Systems Constitutional: Positive for fatigue. Respiratory: Negative. Cardiovascular: Positive for leg swelling. Negative for chest pain and palpitations. Gastrointestinal: Negative. Genitourinary: Negative. Psychiatric/Behavioral: Negative. Objective Spoke with patient on the phone regarding results of 24 hr urine. Patient reports significant fatigue and BLE swelling. She denies headaches, vision changes, shortness of breath, chest pain, RUQ pain. She has been monitoring blood pressures at home and they have been in the 110's- 120's/ 70's. She sotero labetalol 100mg once daily. She reports adequate movement and denies LOF, VB, ctx. Assessment & Plan * No active hospital problems. * Assessment & Plan Assessment: 1. Intrauterine at 30w5d gestation presenting with preeclampsia, as evidenced by significantly elevated 24 hr urine protein, persistently elevated liver enzymes, and gestational hypertension controlled by labetalol. Plan: 1. Admit for corticosteroids, serial BP monitoring, NST's TID for one hour, repeat PEP's,PDC ultrasound in the AM. 2. Plan of care has been reviewed with patient over the phone, and discussed with Dr. Mayo and who is the transportation worker physician. 3. Risks, benefits of treatment plan have been discussed. 4. All questions have been answered to the best of my ability. Shilpa De Leon APRN 10/10/2024 16:37 EDT Cosigned by Madison Tellez MD at 10/10/2024 6:32 PM EDT Associated attestation - Madison Tellez MD - 10/10/2024 6:32 PM EDT I have reviewed this documentation and agree. documented in this encounter Nursing Notes * Marquita Cortes RN - 10/13/2024 5:46 AM EDT Problem: Adult Inpatient Plan of Care Goal: Plan of Care Review Outcome: Progressing Flowsheets (Taken 10/13/2024 0545) Outcome Evaluation: pt's LFT's and protenuria will continue to decrease Plan of Care Reviewed With: patient Goal: Patient-Specific Goal (Individualized) Outcome: Progressing Goal: Absence of Hospital-Acquired Illness or Injury Outcome: Progressing Intervention: Identify and Manage Fall Risk Recent Flowsheet Documentation Taken 10/13/2024 0534 by Marquita Cortes RN Safety Promotion/Fall Prevention: safety round/check completed Taken 10/13/2024 0300 by Marquita Cortes RN Safety Promotion/Fall Prevention: safety round/check completed Taken 10/13/2024 0101 by Marquita Cortes RN Safety Promotion/Fall Prevention: safety round/check completed Taken 10/12/2024 2334 by Marquita Cortes RN Safety Promotion/Fall Prevention: safety round/check completed Taken 10/12/20242157 by Marquita Cortes RN Safety Promotion/Fall Prevention: safety round/check completed Taken 10/12/20242057 by Marquita Cortes RN Safety Promotion/Fall Prevention: assistive device/personal items within reach clutter free environment maintained nonskid shoes/slippers when out of bed safety round/check completed room organization consistent Intervention: Prevent Skin Injury Recent Flowsheet Documentation Taken 10/12/20242057 by Marquita Cortes RN Body Position: sitting up in bed position changed independently Intervention: Prevent Infection Recent Flowsheet Documentation Taken 10/12/20242057 by Marquita Cortes RN Infection Prevention: hand hygiene promoted personal protective equipment utilized rest/sleep promoted single patient room provided Goal: Optimal Comfort and Wellbeing Outcome: Progressing Intervention: Provide Person-Centered Care Recent Flowsheet Documentation Taken 10/12/20242157 by Marquita Cortes RN Trust Relationship/Rapport: care explained Taken 10/12/20242057 by Marquita Cortes RN Trust Relationship/Rapport: care explained choices provided empathic listening provided emotional support provided questions answered Goal: Readiness for Transition of Care Outcome: Progressing Problem: Sepsis/Septic Shock Goal: Optimal Coping Outcome: Progressing Intervention: Support Patient and Family Response Recent Flowsheet Documentation Taken 10/12/20242057 by Marquita Cortes RN Family/Support System Care: involvement promoted Goal: Absence of Bleeding Outcome: Progressing Goal: Blood Glucose Level Within Target Range Outcome: Progressing Goal: Absence of Infection Signs and Symptoms Outcome: Progressing Intervention: Initiate Sepsis Management Recent Flowsheet Documentation Taken 10/12/20242057 by Marquita Cortes RN Infection Prevention: hand hygiene promoted personal protective equipment utilized rest/sleep promoted single patient room provided Intervention: Promote Recovery Recent Flowsheet Documentation Taken 10/12/20242057 by Marquita Cortes RN Activity Management: up ad manuel Goal: Optimal Nutrition Delivery Outcome: Progressing Problem: Hypertensive Disorders in Goal: Patient- Stabilization Outcome: Progressing Intervention: Monitor and Manage Symptom Progression Recent Flowsheet Documentation Taken 10/12/20242057 by Marquita Cortes RN Medication Review/Management: medications reviewed Goal Outcome Evaluation: Plan of Care Reviewed With: patient Outcome Evaluation: pt's LFT's and protenuria will continue to decrease documented in this encounter Plan of Treatment Upcoming Encounters Date Type Department Care Team (Late st Contact Info) Description 12/01/2024 3:15 PM EDT Visit [facility] OBGYN [address] [place] [address] Sheldon Godoy, DRYWALL CONTRACTOR [address] [place] [address] 09/22/2025 2:45 PM EDT Office Visit [facility] SLEEP MEDICINE [address] [address] [place] [id number] Dave Montaño, DRYWALL CONTRACTOR [address] [place] [address] documented as of this encounter Procedures Procedure Name Priority Date/Time Associated Diagnosis Comments PRE-ECLAMPSIA PANEL Routine 10/14/2024 4 :43 AM EDT CBC (NO DIFF) Routine 10/14/2024 4:43 AM EDT US LIVER Routine 10/13/2024 8:51 PM EDT PROTEIN, URINE, 24 HOUR Routine 10/12/2024 9:02 PM EDT SCAN SLIDE Routine 10/12/2024 5:20 AM EDT PRE-ECLAMPSIA PANEL Routine 10/12/2024 5 :20 AM EDT CBC WITH AUTO DIFFERENTIAL Routine 10/12/2024 5:20 AM EDT CBC AND DIFFERENTIAL Routine 10/12/2024 5:20 AM EDT [facility] DI[facility]NOSTIC CENTER Routine 10/11/2024 7:44 AM EDT ABORH 2ND SPECIMEN VERIFICATION STAT 10/10/2024 6:59 PM EDT TREPONEMA PALLIDUM AB W/REFLEX RPR Routine 10/10/2024 5:12 PM EDT CBC (NO DIFF) Routine 10/10/2024 5:12 PM EDT TYPE AND SCREEN Routine 10/10/2024 5:12 PM EDT URIC ACID Routine 10/10/2024 5:12 PM EDT LACTATE DEHYDROGENASE Routine 10/10/2024 5:12 PM EDT COMPREHENSIVE METABOLIC PANEL Routine 10/10/2024 5:12 PM EDT documented in this encounter Results * (ABNORMAL) Preeclampsia Panel (10/14/2024 4:43 AM EDT) Alkaline Phosphatase 93 39 - 117 U/L 10/14/2024 5:26 AM EDT [facility] ALT (SGPT) 121(H) 1 - 33 U/L 10/14/2024 5:26 AM EDT [facility] AST (SGOT) 64(H) 1 - 32 U/L 10/14/2024 5:26 AM EDT [facility] Creatinine 0.47(L) 0.57 - 1.00 mg/dL 10/14/2024 5:26 AM EDT [facility] Total Bilirubin 0.2 0.0 - 1.2 mg/dL 10/14/2024 5:26 AM EDT [facility] LDH 203 135 - 214 U/L 10/14/2024 5:26 AM EDT [facility] Uric Acid 3.8 2.4 - 5.7 mg/dL 10/14/2024 5:26 AM EDT [facility] Blood Venipuncture / Unknown 10/14/2024 4:43 AM EDT 10/14/2024 5:00 AM EDT us Karan Mayo MD LAB BLOOD ORDERABLES Final Resu lt [facility]
[address] [place] [address], * (ABNORMAL) CBC (No Diff) (10/14/2024 4:43 AM EDT) WBC 10.53 3.40 - 10.80 10*3/mm3 10/14/2024 5:09 AM EDT [facility] RBC 3.91 3.77 - 5.28 10*6/mm3 10/14/2024 5:09 AM EDT [facility] Hemoglobin 11.1(L) 12.0 - 15.9 g/dL 10/14/2024 5:09 AM EDT [facility] Hematocrit 35.3 34.0 - 46.6 % 10/14/2024 5:09 AM EDT [facility] MCV 90.3 79.0 - 97.0 fL 10/14/2024 5:09 AM EDT [facility] MCH 28.4 26.6 - 33.0 pg 10/14/2024 5:09 AM EDT [facility] MCHC 31.4(L) 31.5 - 35.7 g/dL 10/14/2024 5:09 AM EDT [facility] RDW 15.4 12.3 - 15.4 % 10/14/2024 5:09 AM EDT [facility] RDW-SD 49.7 37.0 - 54.0 fl 10/14/2024 5:09 AM EDT [facility] MPV 10.6 6.0 - 12.0 fL 10/14/2024 5:09 AM EDT [facility] Platelets 200 140 - 450 10*3/mm3 10/14/2024 5:09 AM EDT [facility] Blood Venipuncture / Unknown 10/14/2024 4:43 AM EDT 10/14/2024 5:05 AM EDT us Karan Mayo MD LAB BLOOD ORDERABLES Final Resu lt [facility]
[address] [place] [address], * US Liver (10/13/2024 8:51 PM EDT) Anatomical Region Laterality Modality Body, Abdomen Ultrasound 10/13/2024 9:15 PM EDT Impressions 10/13/2024 9:20 PM EDT Impression: Negative right upper quadrant ultrasound. Electronically Signed: Nathaniel Engel MD 10/13/2024 9:20 PM EDT Workstation ID: [id number] Narrative 10/13/2024 9:20 PM EDT US LIVER Date of Exam: 10/13/2024 8:15 PM EDT Indication: elevated LFT, . Comparison: No comparisons available. Technique: Grayscale and color Doppler ultrasound evaluation of the right upper quadrant was performed. Findings: The liver is of normal size and uniform echogenicity. There is no intra or extrahepatic bile duct dilatation. The common duct measures 3 mm in diameter, which is within normal limits. The gallbladder is not abnormally distended. There is no evidence of cholelithiasis or wall thickening. No vascular abnormality is evident. No abnormality of the pancreas is evident. The right kidney measures 12 cm [id number]. The echogenicity of the renal cortex is within normal limits relative to the liver. No shadowing stones are seen. There is no evidence of hydronephrosis. Procedure Note Nathaniel Engel MD - 10/13/2024 US LIVER Date of Exam: 10/13/2024 8:15 PM EDT Indication: elevated LFT, . Comparison: No comparisons available. Technique: Grayscale and color Doppler ultrasound evaluation of the rightupper quadrant was performed. Findings: The liver is of normal size and uniform echogenicity. There is no intra or extrahepatic bile duct dilatation. The common ductmeasures 3 mm in diameter, which is within normal limits. The gallbladder is not abnormally distended. There is no evidence ofcholelithiasis or wall thickening. No vascular abnormality is evident. No abnormality of the pancreas is evident. The right kidney measures 12 cm [id number]. The echogenicity of therenal cortex is within normal limits relative to the liver. No shadowingstones are seen. There is no evidence of hydronephrosis. IMPRESSION: Impression: Negative right upper quadrant ultrasound. Electronically Signed: Nathaniel Engel MD 10/13/2024 9:20 PM EDT Workstation ID: [id number] Karan Mayo MD [facility] [place] ORDERABLES Final Result * (ABNORMAL) Protein, Urine, 24 Hour - Urine, Clean Catch (10/12/2024 9:02 PM EDT) Protein, 24H Urine 180.0(H) 0.0 - 150.0 mg/24hours 10/12/2024 9:25 PM EDT [facility] 24H Urine Volume 4,000 mL 10/12/2024 9:25 PM EDT [facility] Time (Hours) 24 hrs 10/12/2024 9:25 PM EDT [facility] 24 Hour Urine Urine specimen obtained by clean catch procedure / Unknown 10/12/2024 9:02 PM EDT 10/12/2024 9:02 PM EDT Narrative [facility] - 10/12/2024 9:25 PM EDT Reference ranges are based on a 24 hour period, interperet results accordingly. us Karan Mayo MD URINE ORDERABLES Final Result Performing Organization Address [facility] Co de Phone Number [facility]
[address] [place] [address], * Scan Slide (10/12/2024 5:20 AM EDT) [facility] RBC Morphology Normal Normal 10/12/2024 7:31 AM EDT [facility] WBC Morphology Normal Normal 10/12/2024 7:31 AM EDT [facility] Platelet Morphology Normal Normal 10/12/2024 7:31 AM EDT [facility] Blood Venipuncture / Unknown 10/12/2024 5:20 AM EDT 10/12/2024 5:59 AM EDT us Karan Mayo MD LAB BLOOD ORDERABLES Final Resu lt Performing Organization Address City/[facility]/ZIP Co de Phone Number [facility]
[address] [place] [address], * (ABNORMAL) CBC Auto Differential (10/12/2024 5:20 AM EDT) [facility] WBC 12.64(H) 3.40 - 10.80 10*3/mm3 10/12/2024 7:31 AM [facility] RBC 3.81 3.77 - 5.28 10*6/mm3 10/12/2024 7:31 AM [facility] Hemoglobin 10.9(L) 12.0 - 15.9 g/dL 10/12/2024 7:31 AM [facility] Hematocrit 34.6 34.0 - 46.6 % 10/12/2024 7:31 AM [facility] MCV 90.8 79.0 - 97.0 fL 10/12/2024 7:31 AM [facility] MCH 28.6 26.6 - 33.0 pg 10/12/2024 7:31 AM [facility] MCHC 31.5 31.5 - 35.7 g/dL 10/12/2024 7:31 AM [facility] RDW 15.2 12.3 - 15.4 % 10/12/2024 7:31 AM [facility] RDW-SD 49.0 37.0 - 54.0 fl 10/12/2024 7:31 AM [facility] MPV 10.7 6.0 - 12.0 fL 10/12/2024 7:31 AM [facility] Platelets 169 140 - 450 10*3/mm3 10/12/2024 7:31 AM [facility] Neutrophil % 82.3(H) 42.7 - 76.0 % 10/12/2024 7:[facility] Lymphocyte % 11.0(L) 19.6 - 45.3 % 10/12/2024 7:31 AM [facility] Monocyte % 5.3 5.0 - 12.0 % 10/12/2024 7:[facility] Eosinophil % 0.0(L) 0.3 - 6.2 % 10/12/2024 7:31 AM [facility] Basophil % 0.1 0.0 - 1.5 % 10/12/2024 7:31 AM EDT [facility] Immature Grans % 1.3(H) 0.0 - 0.5 % 10/12/2024 7:31 AM EDT [facility] Neutrophils, Absolute 10.40(H) 1.70 - 7.00 10*3/mm3 10/12/2024 7:31 AM EDT [facility] Lymphocytes, Absolute 1.39 0.70 - 3.10 10*3/mm3 10/12/2024 7:31 AM EDT [facility] Monocytes, Absolute 0.67 0.10 - 0.90 10*3/mm3 10/12/2024 7:31 AM EDT [facility] Eosinophils, Absolute 0.00 0.00 - 0.40 10*3/mm3 10/12/2024 7:31 AM EDT [facility] Basophils, Absolute 0.01 0.00 - 0.20 10*3/mm3 10/12/2024 7:31 AM EDT [facility] Immature Grans, Absolute 0.17(H) 0.00 - 0.05 10*3/mm3 10/12/2024 7:31 AM EDT [facility] nRBC 0.0 0.0 - 0.2 /100 WBC 10/12/2024 7:31 AM EDT [facility] Blood Venipuncture / Unknown 10/12/2024 5:20 AM EDT 10/12/2024 5:59 AM EDT us Karan Mayo MD LAB BLOOD ORDERABLES Final Resu lt [facility]
[address] [place] [address], * (ABNORMAL) Preeclampsia Panel (10/12/2024 5:20 AM EDT) Alkaline Phosphatase 90 39 - 117 U/L 10/12/2024 6:14 AM EDT [facility] ALT (SGPT) 125(H) 1 - 33 U/L 10/12/2024 6:14 AM EDT [facility] AST (SGOT) 81(H) 1 - 32 U/L 10/12/2024 6:14 AM EDT [facility] Creatinine 0.38(L) 0.57 - 1.00 mg/dL 10/12/2024 6:14 AM EDT [facility] Total Bilirubin 0.2 0.0 - 1.2 mg/dL 10/12/2024 6:14 AM EDT [facility] LDH 201 135 - 214 U/L 10/12/2024 6:14 AM EDT [facility] Uric Acid 4.1 2.4 - 5.7 mg/dL 10/12/2024 6:14 AM EDT [facility] Blood Venipuncture / Unknown 10/12/2024 5:20 AM EDT 10/12/2024 5:42 AM EDT Karan Mayo MD LAB BLOOD ORDERABLES Final Resu lt [facility]
[address] [place] [address], * [facility] (10/11/2024 7:44 AM EDT) Anatomical Region Laterality Modality Ultrasound 10/11/2024 7:41 AM EDT Narrative 10/11/2024 7:58 AM EDT PAT NAME: PENNY URIBE MED REC#: [id number] DA: [id number] PAT GEND: F PAT TYPE: O EXAM JEAN-CLAUDE: [id number] REF PHYS KARAN MAYO Comparison Studies The findings of this study are compared to the prior ultrasound study dated 09/21/24 Patient Status Inpatient Indication ======== Preeclampsia. Super obesity BMI 51. Maternal Assessment Height 160 cm Height (ft) 5 ft Height (in) 3 in Weight 131 kg Weight (lb) 289 lb BMI 51.21 kg/m Method ======= Transabdominal ultrasound examination. View: Suboptimal view: limited by maternal body habitus ========= Navarro . Number of fetuses: 1 Dating ====== LMP on: 02/25/2024 GA by LMP 32 w + 5 d KAREN by LMP: 12/01/2024 Method of dating: based on stated KAREN GA by prior assessment 30 w + 6 d KAREN by prior assessment: 12/14/2024 Ultrasound examination on: 10/11/2024 GA by U/S based upon: AC, BPD, Femur, HC GA by U/S 33 w + 0 d KAREN by U/S: 11/29/2024 Previous dating: based on stated KAREN, selected on 08/25/2024 Agreed KAREN of previous datin12/14/2024 Assigned: based on stated KAREN, selected on 10/11/2024 Assigned GA 30 w + 6 d Assigned KAREN: 12/14/2024 length 280 d Biometry Standard BPD 83.6 mm 33w 5d 97% Hadlock OFD 104.5 mm 34w 2d 98% Mary HC 300.6 mm 33w 2d 81% Hadlock Cerebellum tr 39.8 mm 32w 0d 71% Hill AC 292.0 mm 33w 1d 96% Hadlock Femur 61.0 mm 31w 5d 59% Hadlock Humerus 53.6 mm 31w 1d 64% Mary HC / AC 1.03 EFW 2,055 g 32w 3d 93% Hadlock EFW (lb) 4 lb EFW (oz) 8 oz EFW by: Hadlock ([id number]) Extended Cav. septi pel. tr 6.6 mm Mineral Technologist 4.7 mm CM 7.8 mm 70% Nicolaides Head / Face / Neck Cephalic index 0.80 57% Nicolaides Extremities / Bony Struc FL / BPD 0.73 FL / HC 0.20 FL / AC 0.21 Other Structures FHR 145 bpm General Evaluation Cardiac activity present. FHR 145 bpm. movements present. Presentation cephalic. Placenta Placental site: posterior. Amniotic fluid Amount of AF: normal. MVP 5.5 cm. JD 16.3 cm. Q1 2.6 cm, Q2 3.7 cm, Q3 4.4 cm, Q4 5.5 cm. Anatomy Cranium: Normal Cavum septi pellucidi: Normal Cerebellum: Normal Cisterna magna: Normal Head / Neck Rt lateral ventricle: Normal Lt lateral ventricle: Normal Lips: suboptimal Profile: Normal Nose: suboptimal 4-chamber view: Appears normal RVOT view: Normal LVOT view: suboptimal Heart / Thorax 3-vessel view: Normal 9-dtbujx-twniqbr view: suboptimal Stomach: Appears normal Kidneys: Appears normal Bladder: Appears normal Gender: female Wants to know gender: yes Doppler Arterial Umbilical A PI 0.99 61% Momo Umbilical A RI 0.65 59% Momo Umbilical A PS 59.94 cm/s 94% Ebbing Umbilical A ED 20.76 cm/s Umbilical A TAmax 37.52 cm/s 87% Ebbing Umbilical A MD 19.52 cm/s Umbilical A S / D 2.87 56% Momo Umbilical A HR 145 bpm Biophysical Profile 2: breathing movements 2: Gross body movements 2: tone 2: Amniotic fluid volume 8/8 Biophysical profile score Impression Today's exam reveals a SIUP in cephalic presentation with biometry inconsistent with dates, EFW at the 93% and AC at the 96%. Limited anatomic survey appears normal. The JD and BPP are normal. UA dopplers are normal. Recommendation Recommend continued inpatient management of atypical pre-eclampsia with severe features. Coding ======= Description: 03301-23 Follow Up Ultrasound Description: 88648-07 BPP without NST Description: 81362-77 Doppler Umbilical Artery Generator Mechanic: Yenny Gibson RDMS Physician: Joaquín Barrientos MD, FACOG Electronically signed by: Joaquín Barrientos MD, FACOG at: 07:58 Procedure Note Joaquín Barrientos MD - 10/11/2024 PAT NAME: PENNY URIBE MED REC#: [id number] DA: 2000 PAT GEND: F PAT TYPE: O EXAM JEAN-CLAUDE: [id number] REF PHYS KARAN MAYO Comparison Studies The findings of this study are compared to the prior ultrasound studydated 09/21/24 Patient Status Inpatient Indication ======== Preeclampsia. Super obesity BMI 51. Maternal Assessment [id number] cm Height (ft)5 ft Height (in)3 in [id number] kg Weight (lb)289 lb BMI51.21 kg/m Method ======= Transabdominal ultrasound examination. View: Suboptimal view: limited bymaternal body habitus ========= Navarro . Number of fetuses: 1 Dating ====== LMP on:02/25/2024 GA by LMP32 w + 5 d KAREN by LMP:12/01/2024 Method of dating:based on stated KAREN GA by prior [id number] w + 6 d KAREN by prior assessment:12/14/2024 Ultrasound examination on:10/11/2024 GA by U/S based upon:AC, BPD, Femur, HC GA by U/S33 w + 0 d KAREN by U/S:11/29/2024 Previous dating:based on stated KAREN, selected on 08/25/2024 Agreed KAREN of previous datin12/14/2024 Assigned:based on stated KAREN, selected on 10/11/2024 Assigned GA30 w + 6 d Assigned KAREN:12/14/2024 [id number] d Biometry Standard BPD83.6 mm 33w 5d 97% Hadlock AEX039.5 mm 34w 2d 98% Mary HC300.6 mm 33w 2d 81% Hadlock Cerebellum tr39.8 mm 32w 0d 71% Hill AC292.0 mm 33w 1d 96% Hadlock Femur61.0 mm 31w 5d 59% Hadlock Tjfznct91.6 mm 31w 1d 64% Mary HC / AC1.03 EFW2,055 g 32w 3d 93% Hadlock EFW (lb)4 lb EFW (oz)8 oz EFW by:Hadlock ([id number]) Extended Cav. septi pel. tr6.6 mm Vp4.7 mm CM7.8 mm 70% Nicolaides Head / Face / Neck Cephalic index0.80 57% Nicolaides Extremities / Bony Struc FL / BPD0.73 FL / HC0.20 FL / AC0.21 Other Structures [id number] bpm General Evaluation Cardiac activity present. FHR 145 bpm. movements present. Presentation cephalic. Placenta Placental site: posterior. Amniotic fluid Amount of AF: normal. MVP 5.5 cm. JD 16.3 cm. Q1 2.6 cm,Q2 3.7 cm, Q3 4.4 cm, Q4 5.5 cm. Anatomy Cranium:Normal Cavum septi pellucidi:Normal Cerebellum:Normal Cisterna magna:Normal Head / Neck Rt lateral ventricle:Normal Lt lateral ventricle:Normal Lips:suboptimal Profile:Normal Nose:suboptimal 4-chamber view:Appears normal RVOT view:Normal LVOT view:suboptimal Heart / Thorax 3-vessel view:Normal [id number] view:suboptimal Stomach:Appears normal Kidneys:Appears normal Bladder:Appears normal Gender:female Wants to know gender:yes Doppler Arterial Umbilical A PI0.99 61% Momo Umbilical A RI0.65 59% Momo Umbilical A PS59.94 cm/s 94% Ebbing Umbilical A ED20.76 cm/s Umbilical A TAmax37.52 cm/s 87% [place] Umbilical A MD19.52 cm/s Umbilical A S / D2.87 56% Momo Umbilical A HR145 bpm Biophysical Profile 2: breathing movements 2: Gross body movements 2: tone 2: Amniotic fluid volume 12/09 Biophysical profile score Impression Today's exam reveals a SIUP in cephalic presentation with biometryinconsistent with dates, EFW at the 93% and AC at the 96%. Limited fetalanatomic survey appears normal. The JD and BPP are normal. UA dopplers are normal. Recommendation Recommend continued inpatient management of atypical pre-eclampsia withsevere features. Coding ======= Description:34676-97 Follow Up Ultrasound Description:04087-45 BPP without NST Description:64817-87 Doppler Umbilical Artery Generator Mechanic: Yenny Gibson RDMS Physician: Joaquín Barrientos MD, FACOG Electronically signed by: Joaquín Barrientos MD, FACOG at: 07:58 Shilpa De Leon APRN IMG US ORDERABLES Final Result * ABO RH Specimen Verification (10/10/2024 6:59 PM EDT) ABO Type O 10/10/2024 7:24 PM EDT [facility] RH type Positive 10/10/2024 7:24 PM EDT [facility] Blood Venipuncture / Unknown 10/10/2024 6:59 PM EDT 10/10/2024 7:06 PM EDT Shilpa De Leon APRN BLOOD BANK TEST ORDERABLES Milena l Result [facility]
[address] [place] [address], * (ABNORMAL) Comprehensive Metabolic Panel (10/10/2024 5:12 PM EDT) Glucose 87 65 - 99 mg/dL 10/10/2024 5:51 PM EDT [facility] BUN 4.6(L) 6.0 - 20.0 mg/dL 10/10/2024 5:51 PM [facility] Creatinine 0.44(L) 0.57 - 1.00 mg/dL 10/10/2024 5:51 PM [facility] Sodium 139 136 - 145 mmol/L 10/10/2024 5:51 PM [facility] Potassium 3.9 3.5 - 5.2 mmol/L 10/10/2024 5:51 PM [facility] Chloride 109(H) 98 - 107 mmol/L 10/10/2024 5:51 PM [facility] CO2 21.0(L) 22.0 - 29.0 mmol/L 10/10/2024 5:51 PM [facility] Calcium 8.6 8.6 - 10.5 mg/dL 10/10/2024 5:51 PM [facility] Total Protein 5.6(L) 6.0 - 8.5 g/dL 10/10/2024 5:51 PM [facility] Albumin 3.2(L) 3.5 - 5.2 g/dL 10/10/2024 5:51 PM [facility] ALT (SGPT) 109(H) 1 - 33 U/L 10/10/2024 5:51 PM [facility] AST (SGOT) 62(H) 1 - 32 U/L 10/10/2024 5:51 PM [facility] Alkaline Phosphatase 100 39 - 117 U/L 10/10/2024 5:51 PM [facility] Total Bilirubin 0.2 0.0 - 1.2 mg/dL 10/10/2024 5:51 PM [facility] Globulin 2.4 gm/dL 10/10/2024 5:51 PM [facility] Comment:Calculated Result A/G Ratio 1.3 g/dL 10/10/2024 5:51 PM [facility] BUN/Creatinine Ratio 10.5 7.0 - 25.0 10/10/2024 5:51 PM EDT [facility] Anion Gap 9.0 5.0 - 15.0 mmol/L 10/10/2024 5:51 PM EDT [facility] eGFR 137.9 >60.0 mL/min/1.7 3 10/10/2024 5:51 PM EDT [facility] Blood Venipuncture / Unknown 10/10/2024 5:12 PM EDT 10/10/2024 5:24 PM EDT Narrative [facility] - 10/10/2024 5:51 PM EDT GFR Categories in Chronic Kidney Disease (CKD) GFR Category GFR (mL/min/1.73) Interpretation G1 90 or greater Normal or high (1) G2 60-89 Mild decrease (1) G3a 45-59 Mild to moderate decrease G3b 30-44 Moderate to severe decrease G4 15-29 Severe decrease G5 14 or less Kidney failure (1)In the absence of evidence of kidney disease, neither GFR category G1 or G2 fulfill the criteria for CKD. eGFR calculation 2020 CKD-EPI creatinine equation, which does not include race as a factor Shilpa De Leon APRN LAB BLOOD ORDERABLES Final Resu lt [facility]
[address] [place] [address], * Uric Acid (10/10/2024 5:12 PM EDT) Uric Acid 4.8 2.4 - 5.7 mg/dL 10/10/2024 5:51 PM EDT [facility] Comment:Falsely depressed re sults may occur on samples drawn from patients receiving N-Acetylcysteine (NAC) or Metamizole. Blood Venipuncture / Unknown 10/10/2024 5:12 PM EDT 10/10/2024 5:24 PM EDT us Shilpa De Leon APRN LAB BLOOD ORDERABLES Final Resu lt [facility]
[address] [place] [address], [place] [phone] * (ABNORMAL) Lactate Dehydrogenase (10/10/2024 5:12 PM EDT) LDH 224(H) 135 - 214 U/L 10/10/2024 5:51 PM EDT [facility] Blood Venipuncture / Unknown 10/10/2024 5:12 PM EDT 10/10/2024 5:24 PM EDT us Shilpa De Leon APRN LAB BLOOD ORDERABLES Final Resu lt Performing Organization Address [facility] Co de Phone Number [facility]
[address] [place] [address], [place] [phone] * Type & Screen (10/10/2024 5:12 PM EDT) Pathologist [facility] ABO Type O 10/10/2024 6:31 PM EDT [facility] RH type Positive 10/10/2024 6:31 PM EDT [facility] Antibody Screen Negative 10/10/2024 6:31 PM EDT [facility] T&S Expiration Date 10/13/2024 11:59:59 PM 10/10/2024 6:31 PM EDT [facility] Blood Venipuncture / Unknown 10/10/2024 5:12 PM EDT 10/10/2024 5:57 PM EDT us Shilpa De Leon APRN BLOOD BANK TEST ORDERABLES Edit ed Result - Final Performing Organization Address [facility] Co de Phone Number [facility]
[address] [place] [address], [place] [phone] * Treponema pallidum AB w/Reflex RPR (10/10/2024 5:12 PM EDT) Pathologist [facility] Treponemal AB Total Non-Reacti ve Non-React noemi 10/10/2024 11:37 PM EDT [facility] Blood Venipuncture / Unknown 10/10/2024 5:12 PM EDT 10/10/2024 5:24 PM EDT Narrative [facility] - 10/10/2024 11:37 PM EDT Reactive results will reflex RPR testing. Shilpa De Leon APRN LAB BLOOD ORDERABLES Final Resu lt [facility]
[address] [place] [address], * (ABNORMAL) CBC (No Diff) (10/10/2024 5:12 PM EDT) [facility] WBC 10.44 3.40 - 10.80 10*3/mm3 10/10/2024 5:26 PM EDT [facility] RBC 3.87 3.77 - 5.28 10*6/mm3 10/10/2024 5:26 PM EDT [facility] Hemoglobin 11.1(L) 12.0 - 15.9 g/dL 10/10/2024 5:26 PM EDT [facility] Hematocrit 33.4(L) 34.0 - 46.6 % 10/10/2024 5:26 PM EDT [facility] MCV 86.3 79.0 - 97.0 fL 10/10/2024 5:26 PM EDT [facility] MCH 28.7 26.6 - 33.0 pg 10/10/2024 5:26 PM EDT [facility] MCHC 33.2 31.5 - 35.7 g/dL 10/10/2024 5:26 PM EDT [facility] RDW 14.6 12.3 - 15.4 % 10/10/2024 5:26 PM EDT [facility] RDW-SD 44.1 37.0 - 54.0 fl 10/10/2024 5:26 PM EDT [facility] MPV 10.4 6.0 - 12.0 fL 10/10/2024 5:26 PM EDT [facility] Platelets 187 140 - 450 10*3/mm3 10/10/2024 5:26 PM EDT [facility] Blood Venipuncture / Unknown 10/10/2024 5:12 PM EDT 10/10/2024 5:24 PM EDT Shilpa De Leon [employer] LAB BLOOD ORDERABLES Final Resu lt [facility]
[address] [place] [address], documented in this encounter Visit Diagnoses Diagnosis Severe preeclampsia- Primary Mild or unspecified pre-eclampsia, unspecified as to episode of care Pre-eclampsia in third trimester Gestational hypertension, antepartum documented in this encounter Admitting Diagnoses Diagnosis Severe preeclampsia Mild or unspecified pre-eclampsia, unspecified as to episode of care documented in this encounter Administered Medications Inactive Administered Medications - up to 3 most recent administrations Medication Order MAR Action Action Date Dose Rate Site acetaminophen (TYLENOL) tablet 650 mg 650 mg, Oral, Every 4 Hours PRN, Mild Pain, Headache, Starting on Thu10/10/24 at 1629, If given for fever, use fever parameter: fever greater than 100.4 F Based on patient request - if ordered for moderate or severe pain, provider allows for administration of a medication prescribed for a lower pain scale. Do not exceed 4 grams of acetaminophen in a 24 hr period. Max dose of 2gm for AST/ALT greater than 120 units/L. If given for pain, use the following pain scale: Mild Pain = Pain Score of 1-3, CPOT 1-2 Moderate Pain = Pain Score of 4-6, CPOT 3-4 Severe Pain = Pain Score of 7-10, CPOT 5-8Indications:Pre-eclampsia in third trimester amitriptyline (ELAVIL) tablet 50 mg 50 mg, Oral, Nightly, First dose on Thu10/11/24 at 0000 Given 10/13/2024 9:00 PM EDT 50 mg Given 10/12/2024 9:58 PM EDT 50 mg Given 10/11/2024 9:12 PM EDT 50 mg aspirin chewable tablet 81 mg 81 mg, Oral, Nightly, First dose (after last modification) on Thu10/11/24 at 0000, Herbal/drug interaction: Avoid use with ginkgo biloba. Based on patient request - if ordered for moderate or severe pain, provider allows for administration of a medication prescribed for a lower pain scale. Do not exceed 4 grams of aspirin in a 24 hr period. If given for pain, use the following pain scale: Mild Pain = Pain Score of 1-3, CPOT 1-2 Moderate Pain = Pain Score of 4-6, CPOT 3-4 Severe Pain = Pain Score of 7-10, CPOT 5-8 Given 10/13/2024 9:00 PM EDT 81 mg Given 10/12/2024 9:58 PM EDT 81 mg Given 10/11/2024 9:12 PM EDT 81 mg betamethasone acetate-betamethasone sodium phosphate (CELESTONE SOLUSPAN) injection 12 mg 12 mg, Intramuscular, Every 24 Hours, First dose on Thu10/10/24 at 1700, For 2 doses, For IM injection onlyIndications:Pre-eclampsia in third trimester Given 10/11/2024 5:02 PM EDT 12 mg Left Dorsogluteal Given 10/10/2024 5:42 PM EDT 12 mg Ri ght Anterior Thigh bisacodyl (DULCOLAX) suppository 10 mg 10 mg, Rectal, Daily PRN, Constipation, Starting on Thu10/10/24 at 1629, Hold for diarrheaIndications:Pre-eclampsia in third trimester calcium carbonate (TUMS) chewable tablet 500 mg (200 mg elemental) 1 tablet, Oral, Daily PRN, Indigestion, Heartburn, Starting on Thu10/10/24 at 1629, One tablet contains 200 mg elemental calcium. Take with food.Indications:Pre-eclampsia in third trimester cetirizine (zyrTEC) tablet 10 mg 10 mg, Oral, Nightly, First dose (after last modification) on Thu10/11/24 at 0000 Given 10/13/2024 9:00 PM EDT 10 mg Given 10/12/2024 9:58 PM EDT 10 mg Given 10/11/2024 9:12 PM EDT 10 mg docusate sodium (COLACE) capsule 100 mg 100 mg, Oral, 2 Times Daily PRN, Constipation, constipation, Starting on Thu10/10/24 at 1629, Swallow whole. Do not open, crush, or chew capsule.Indications:Pre-eclampsia in third trimester Given 10/10/2024 11:16 PM EDT 100 mg docusate sodium (COLACE) capsule 100 mg 100 mg, Oral, 2 Times Daily, First dose on Thu10/11/24 at 0900, Swallow whole. Do not open, crush, or chew capsule. Given 10/14/2024 8:41 AM EDT 100 mg Given 10/13/2024 9:00 PM EDT 100 mg Given 10/13/2024 8:08 AM EDT 100 mg ferrous sulfate tablet 325 mg 325 mg, Oral, Daily With Breakfast, First dose on Thu10/11/24 at 0900, Swallow whole. Do not crush, split, or chew. Take with food if GI upset occurs. Given 10/14/2024 8:42 AM EDT 325 mg Given 10/13/2024 8:08 AM EDT 325 mg Given 10/12/2024 8:08 AM EDT 325 mg labetalol (NORMODYNE) tablet 100 mg 100 mg, Oral, Daily, First dose on Thu10/11/24 at 0900, Hold for SBP less than 100, DBP less than 60, or heart rate less than 50. If a dose is held, please contact the provider. Given 10/14/2024 8:41 AM EDT 100 mg Given 10/13/2024 8:56 AM EDT 100 mg Given 10/12/2024 8:08 AM EDT 100 mg lidocaine PF 1% (XYLOCAINE) injection 0.5 mL 0.5 mL, Intradermal, Once As Needed, IV Start, Starting on Thu10/10/24 at 1629, For 1 doseIndications:Pre-eclampsia in third trimester montelukast (SINGULAIR) tablet 10 mg 10 mg, Oral, Nightly, First dose (after last modification) on Thu10/11/24 at 0000 Given 10/13/2024 9:00 PM EDT 10 mg Given 10/12/2024 9:58 PM EDT 10 mg Given 10/11/2024 9:12 PM EDT 10 mg ondansetron (ZOFRAN) injection 4 mg 4 mg, Intravenous, Every 8 Hours PRN, Nausea, Vomiting, Starting on Thu10/10/24 at 1629, If BOTH ondansetron (ZOFRAN) and promethazine (PHENERGAN) are ordered use ondansetron first and THEN promethazine IF ondansetron is ineffective. If both oral and IV ordered, offer oral first, unless NPO.Indications:Pre-eclampsia in third trimester ondansetron ODT (ZOFRAN-ODT) disintegrating tablet 8 mg 8 mg, Oral, Every 8 Hours PRN, Nausea, Vomiting, Starting on Thu10/10/24 at 1629, If BOTH ondansetron (ZOFRAN) and promethazine (PHENERGAN) are ordered use ondansetron first and THEN promethazine IF ondansetron is ineffective. If both oral and IV ordered, offer oral first, unless NPO. Place on tongue and allow to dissolve.Indications:Pre-eclampsia in third trimester vitamin 27-0.8 tablet 1 tablet 1 tablet, Oral, Nightly, First dose (after last modification) on Thu10/11/24 at 0000, For 3 doses Given 10/12/2024 9:58 PM EDT 1 tablet Given 10/11/2024 9:12 PM EDT 1 tablet Given 10/10/2024 11:16 PM EDT 1 tablet sodium chloride 0.9 % flush 10 mL 10 mL, Intravenous, Every 12 Hours Scheduled, First dose on Thu10/10/24 at 2100Indications:Pre-eclampsia in third trimester Given 10/14/2024 8:42 AM EDT 10 mL Given 10/13/2024 9:00 PM EDT 10 mL Given 10/13/2024 8:09 AM EDT 10 mL sodium chloride 0.9 % flush 10 mL 10 mL, Intravenous, As Needed, Line Care, Starting on Thu10/10/24 at 1629Indications:Pre-eclampsia in third trimester sodium chloride 0.9 % infusion 40 mL 40 mL, Intravenous, at 100 mL/hr, As Needed, Line Care, Starting on Thu10/10/24 at 1629, Following administration of an IV intermittent medication, flush line with 40mL NS at 100mL/hr.Indications:Pre-eclampsia in third trimester documented in this encounter Active and Recently Administered Medications Times are shown in EDT. Scheduled Medication Order 10/12/2024 10/13/2024 10/14/2024 amitriptyline (ELAVIL) tablet 50 mg 50 mg, Oral, Nightly, First dose on Thu10/11/24 at 0000 2158 (Given - Provider: Marquita Cotres RN) 2099 (Given - Provider: Galina Smith RN) aspirin chewable tablet 81 mg 81 mg, Oral, Nightly, First dose (after last modification) on Thu10/11/24 at 0000, Herbal/drug interaction: Avoid use with ginkgo biloba. Based on patient request - if ordered for moderate or severe pain, provider allows for administration of a medication prescribed for a lower pain scale. Do not exceed 4 grams of aspirin in a 24 hr period. If given for pain, use the following pain scale: Mild Pain = Pain Score of 1-3, CPOT 1-2 Moderate Pain = Pain Score of 4-6, CPOT 3-4 Severe Pain = Pain Score of 7-10, CPOT 5-8 2157 (Given - Provider: Marquita Cortes RN) 2099 (Given - Provider: Galina Smith RN) cetirizine (zyrTEC) tablet 10 mg 10 mg, Oral, Nightly, First dose (after last modification) on Thu10/11/24 at 0000 2158 (Given - Provider: Marquita Cortes RN) 2099 (Given - Provider: Galina Smith RN) docusate sodium (COLACE) capsule 100 mg 100 mg, Oral, 2 Times Daily, First dose on Thu10/11/24 at 0900, Swallow whole. Do not open, crush, or chew capsule. 08 (Given - Provider: Kaitlynn Diallo RN)2157 (Given - Provider: Marquita Cortes RN) 08 (Given - Provider: Waleska Bhakta RN)2099 (Given - Provider: Galina Smith RN) 0841 (Given - Provider: Daniela Us RN) ferrous sulfate tablet 325 mg 325 mg, Oral, Daily With Breakfast, First dose on Thu10/11/24 at 0900, Swallow whole. Do not crush, split, or chew. Take with food if GI upset occurs. 0808 (Given - Provider: Kaitlynn Diallo, RN) 08 (Given - Provider: Waleska Bhakta, RN) 0842 (Given - Provider: Daniela Us, RN) labetalol (NORMODYNE) tablet 100 mg 100 mg, Oral, Daily, First dose on Thu10/11/24 at 0900, Hold for SBP less than 100, DBP less than 60, or heart rate less than 50. If a dose is held, please contact the provider. 0808 (Given - Provider: Kaitlynn Diallo, RN) 0856 (Given - Provider: Waleska Bhakta, RN) 0841 (Given - Provider: Daniela Us, RN) montelukast (SINGULAIR) tablet 10 mg 10 mg, Oral, Nightly, First dose (after last modification) on Thu10/11/24 at 0000 2157 (Given - Provider: Marquita Cortes RN) 2099 (Given - Provider: Galina Smith, TOOTIE) vitamin 27-0.8 tablet 1 tablet (COMPLETED) 1 tablet, Oral, Nightly, First dose (after last modification) on Thu10/11/24 at 0000, For 3 doses 2157 (Given - Provider: Marquita Cortes, TOOTIE) sodium chloride 0.9 % flush 10 mL 10 mL, Intravenous, Every 12 Hours Scheduled, First dose on Thu10/10/24 at 2100 0900 (Due)2157 (Given - Provider: Marquita Cortes RN) 08 (Given - Provider: Waleska Bhakta, TOOTIE)2099 (Given - Provider: Galina Smith, TOOTIE) 0842 (Given - Provider: Daniela Us, RN) PRN Medication Order 10/12/2024 10/13/2024 10/14/2024 acetaminophen (TYLENOL) tablet 650 mg 650 mg, Oral, Every 4 Hours PRN, Mild Pain, Headache, Starting on Thu10/10/24 at 1629, If given for fever, use fever parameter: fever greater than 100.4 F Based on patient request - if ordered for moderate or severe pain, provider allows for administration of a medication prescribed for a lower pain scale. Do not exceed 4 grams of acetaminophen in a 24 hr period. Max dose of 2gm for AST/ALT greater than 120 units/L. If given for pain, use the following pain scale: Mild Pain = Pain Score of 1-3, CPOT 1-2 Moderate Pain = Pain Score of 4-6, CPOT 3-4 Severe Pain = Pain Score of 7-10, CPOT 5-8 bisacodyl (DULCOLAX) suppository 10 mg 10 mg, Rectal, Daily PRN, Constipation, Starting on Thu10/10/24 at 1629, Hold for diarrhea calcium carbonate (TUMS) chewable tablet 500 mg (200 mg elemental) 1 tablet, Oral, Daily PRN, Indigestion, Heartburn, Starting on Thu10/10/24 at 1629, One tablet contains 200 mg elemental calcium. Take with food. lidocaine PF 1% (XYLOCAINE) injection 0.5 mL 0.5 mL, Intradermal, Once As Needed, IV Start, Starting on Thu10/10/24 at 1629, For 1 dose ondansetron (ZOFRAN) injection 4 mg(Linked Group 1) 4 mg, Intravenous, Every 8 Hours PRN, Nausea, Vomiting, Starting on Thu10/10/24 at 1629, If BOTH ondansetron (ZOFRAN) and promethazine (PHENERGAN) are ordered use ondansetron first and THEN promethazine IF ondansetron is ineffective. If both oral and IV ordered, offer oral first, unless NPO. ondansetron ODT (ZOFRAN-ODT) disintegrating tablet 8 mg(Linked Group 1) 8 mg, Oral, Every 8 Hours PRN, Nausea, Vomiting, Starting on Thu10/10/24 at 1629, If BOTH ondansetron (ZOFRAN) and promethazine (PHENERGAN) are ordered use ondansetron first and THEN promethazine IF ondansetron is ineffective. If both oral and IV ordered, offer oral first, unless NPO. Place on tongue and allow to dissolve. 0804 (Due) sodium chloride 0.9 % flush 10 mL 10 mL, Intravenous, As Needed, Line Care, Starting on Thu10/10/24 at 1629 sodium chloride 0.9 % infusion 40 mL 40 mL, Intravenous, at 100 mL/hr, As Needed, Line Care, Starting on Thu10/10/24 at 1629, Following administration of an IV intermittent medication, flush line with 40mL NS at 100mL/hr. Linked Groups Order Group 1: ondansetron ODT (ZOFRAN-ODT) disintegrating tablet 8 mgJump to med 8 mg, Oral, Every 8 Hours PRN, Nausea, Vomiting, Starting on Thu10/10/24 at 1629, If BOTH ondansetron (ZOFRAN) and promethazine (PHENERGAN) are ordered use ondansetron first and THEN promethazine IF ondansetron is ineffective. If both oral and IV ordered, offer oral first, unless NPO. Place on tongue and allow to dissolve. Or ondansetron (ZOFRAN) injection 4 mgJump to med 4 mg, Intravenous, Every 8 Hours PRN, Nausea, Vomiting, Starting on Thu10/10/24 at 1629, If BOTH ondansetron (ZOFRAN) and promethazine (PHENERGAN) are ordered use ondansetron first and THEN promethazine IF ondansetron is ineffective. If both oral and IV ordered, offer oral first, unless NPO. documented in this encounter Care Teams Associate Product Manager Relationship Specialty Start Date End Date Sue Lieberman APRN [address] [place] [address] JASMYNE WATTS [id number] PCP - General Internal Medicine 03/09/24 documented as of this encounter
--- OUTSIDE RECORDS SUMMARY | 2024-10-18 10:20 | XMS_ITS | Encounter Summary ---
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 Name Role Phone LiebermanSue duran ALEE Primary Care Provider [phone] Reason for Visit * Reason Comments Routine Visit Non-stress Test 31w6d Encounter Details Date Type Department Care Team (Late st Contact Info) Description 10/18/2024 10:20 AM EDT Routine [facility] OBGYN [address] [place] [address] [place] [phone] Shilpa De Leon APRN [address] [facility] [address] [place] [address] GA: 31w6d Social History Tobacco Use Types Packs/Day Years Used Date Smoking Tobacco: Never Smokeless Tobacco: Never Alcohol Use Standard Drinks/Week Comments Not Currently 2 (1 standard drink = 0.6 oz pur e alcohol) [facility] Utilities Answer Date Recorded In the past 12 months has [employer], gas, oil, or water company threatened [...] and heating? Not hard at all 10/13/2024 [facility] - Occupational Stress Questionnaire Answer Date Recorded [...] GED or equivalent No 10/13/2024 Preferred Language [place]orese 10/13/2024 PHQ-2 Answer Date Recorded Patient Health Questionnaire-2 Score 0 10/13/2024 Comments Yes Sex and Gender Information Value Date Recorded Sex Assigned at Female 10/01/2024 2:08 PM EDT Legal Sex Female 10:46 AM EDT Gender Identity Not on file Sexual Orientation Not on file documented as of this encounter Last Filed Vital Signs Vital Sign Reading Time Taken Comments Blood Pressure 126/68 10/18/2024 10:10 AM EDT Pulse - - Temperature - - Respiratory Rate - - Oxygen Saturation - - Inhaled Oxygen Concentration - - Weight 131 kg (288 lb) 10/18/2024 10:10 AM EDT Height - - Body Mass Index 51.03 09/16/2024 2:28 PM EDT documented in this encounter Progress Notes * Shilpa De Leon APRN - 10/18/2024 10:20 AM EDT Images from the original note were not included. OB FOLLOW UP CC- Here for care of Penny Kebede is a 24 y.o. 31w6d patient being seen today for her obstetrical follow up visit. Patient reports mild cramping over the weekend that felt like menstrual cramps. She denies bleeding or LOF. She denies BOYCE, vision changes, RUQ pain or sudden onset swelling. She states after she left hospital, she has been home resting/ not super active. She states swelling has been some better because of that. Patient went to L&D on 10/10/24 for with preeclampsia, as evidenced by significantly elevated 24 hr urine protein, persistently elevated liver enzymes, and gestational hypertension controlled by labetalol. There she received liver US, steroids, and continued eval of preeclampsia. Her repeat 24 hrurine came back at a much lower level so she was able to be discharged. Her care is complicated by (and status) : see below. and GHTN. Her average BP has been 120's/90's. Patient Active Problem List Diagnosis Asthma Obesity affecting , antepartum Morbid obesity with BMI of 50.0-59.9, adult Teratogen exposure in current Gestational hypertension, antepartum TDAP status: declines Rhogam status: was not indicated 28 week labs: Reviewed and normal- Elevated LFTs Ultrasound Today: No Non Stress Test: Yes minutes 20+ non-stress test: NST: Reactive indication: Hypertension category: Category I ROS - Patient Denies: Loss of Fluid, Vaginal Spotting, Vision Changes, Headaches, Nausea , Vomiting , Contractions, Epigastric pain, [...] ROS, and historical information as entered above. Shilpa De Leon, CERTIFIED GENETIC COUNSELOR BP 126/68 Wt 131 kg (288 lb) LMP 02/25/2024 (Approximate) BMI 51.03 kg/m?? EXAM: Vitals BP: 126/68 Weight: 131 kg (288 lb) Heart Rate: NST Urine Glucose Read-only: Negative Urine Protein Read-only: Negative Assessment and Plan Problem List Items Addressed This Visit Gestational hypertension, antepartum Overview [ ] ASA 81MG until delivery [ ] Twice weekly NST's 32 weeks until delivery [ ] Growth US q4 weeks [ ] 24 hour urine [ ] Consider weekly PEP [ ] Consider early delivery at 37 weeks Relevant Medications labetalol (NORMODYNE) 200 MG tablet Other Relevant Orders Preeclampsia Panel Other Visit Diagnoses care, antepartum, unspecified - Primary Relevant Orders POC Urinalysis Dipstick (Completed) Elevated LFTs Relevant Orders Preeclampsia Panel at 31w6d status reassuring. 28 week labs reviewed. Activity and Exercise discussed. She was originally going to be managed inpatient so PDC had not made recommendations for follow up,since she was discharged will need to repeat growth in 2 wks. movement/PTL or Labor precautions Reviewed Pre-eclampsia signs/symptoms Return for NST twice weekly, PDC f/u 2 wks. Shilpa De Leon APRN 10/18/2024 documented in this encounter Plan of Treatment Upcoming Encounters Date Type Department Care Team (Late st Contact Info) Description 12/01/2024 3:15 PM EDT Visit [facility] OBGYN [address] [facility] [address] [place] [address] Sheldon Godoy, ALEE [address] [facility] [address] [place] [address] 09/22/2025 2:45 PM EDT Office Visit [facility] SLEEP MEDICINE [address] [facility] [address] [place] [phone] Dave Montaño, CERTIFIED GENETIC COUNSELOR [address] [place] [address] documented as of this encounter Procedures Procedure Name Priority Date/Time Associated Diagnosis Comments CONV SPECIMEN STATUS REPORT* Routine 10/18/2024 10:59 AM EDT PRE-ECLAMPSIA PANEL Routine 10/18/2024 1 0:59 AM EDT Gestational hypertension, antepartum Elevated LFTs POCT URINALYSIS DIPSTICK, MANUAL Routine 10/18/2024 10:12 AM EDT care, antepartum, unspecified SCANNED - PROCEDURE 10/18/2024 documented in this encounter Results * Specimen Status Report (10/18/2024 10:59 AM EDT) Specimen Status Comment [facility] Comment: Unable to Void Unable to Void The patient was not able to render a urine sample and has been instructed to return for a urine collection at their earliest convenience. The urine testing that you have requested has been deleted from this report. When the patient returns and provides a urine specimen, the urine testing will be performed and separately reported. 10/18/2024 10:5 9 AM EDT 10/18/2024 Narrative [facility] (AMBULATORY) - 10/19/2024 3:35 AM EDT Performed at: [facility] - [facility] [address] [facility], [place], [place] [id number] Disassembler Product: Cristian Acuña PhD, Phone: [phone] us Shilpa De Leon APRN LAB BLOOD ORDERABLES Final Resu lt [facility] (AMBULATORY) [address] [place] [address], [facility] [address] [place] [address], * (ABNORMAL) Preeclampsia Panel (10/18/2024 10:59 AM EDT) Uric Acid 4.4 2.6 - 6.2 mg/dL [facility] Comment:Therapeutic target f or gout patients: <6.0 BUN 5(L) 6 - 20 mg/dL [facility] Creatinine 0.51(L) 0.57 - 1.00 mg/dL [facility] EGFR Result 133 >59 mL/min/1.7 3 [facility] LDH 195 119 - 226 IU/L [facility] AST (SGOT) 39 0 - 40 IU/L [facility] ALT (SGPT) 73(H) 0 - 32 IU/L [facility] Creatinine, Urine CANCELED [facility] Comment: Test not performed Result canceled by the ancillary. Microalbumin, Urine CANCELED [facility] Comment: Test not performed Result canceled by the ancillary. WBC 10.2 3.4 - 10.8 x10E3/uL [facility] RBC 4.25 3.77 - 5.28 x10E6/uL [facility] Hemoglobin 12.1 11.1 - 15.9 g/dL [facility] Hematocrit 38.1 34.0 - 46.6 % [facility] MCV 90 79 - 97 fL [facility] MCH 28.5 26.6 - 33.0 pg [facility] MCHC 31.8 31.5 - 35.7 g/dL [facility] RDW 14.1 11.7 - 15.4 % [facility] Platelets 230 150 - 450 x10E3/uL [facility] Neutrophil Rel % 73 Not Estab. % [facility] Lymphocyte Rel % 18 Not Estab. % [facility] Monocyte Rel % 9 Not Estab. % [facility] Eosinophil Rel % 0 Not Estab. % [facility] Basophil Rel % 0 Not Estab. % [facility] Neutrophils Absolute 7.4(H) 1.4 - 7.0 x10E3/uL [facility] Lymphocytes Absolute 1.8 0.7 - 3.1 x10E3/uL [facility] Monocytes Absolute 0.9 0.1 - 0.9 x10E3/uL [facility] Eosinophils Absolute 0.0 0.0 - 0.4 x10E3/uL [facility] Basophils Absolute 0.0 0.0 - 0.2 x10E3/uL [facility] Immature Granulocyte Rel % 0 Not Estab. % [facility] Immature Grans Absolute 0.0 0.0 - 0.1 x10E3/uL [facility] Blood 10/18/2024 10:5 9 AM EDT 10/18/2024 Narrative [facility] (AMBULATORY) - 10/19/2024 9:36 AM EDT Performed at: - [address] [id number] Disassembler Product: Cristian Acuña PhD, Phone: [phone] Shilpa De Leon APRN LAB BLOOD ORDERABLES Edited Res ult - Final [facility] (AMBULATORY) [address] [place] [address], [facility] [address] [place] [address], * POC Urinalysis Dipstick (10/18/2024 10:12 AM EDT) Glucose, UA Negative Negative mg/dL [facility] Protein, POC Negative Negative mg/dL [facility] Urine 10/18/2024 10:1 2 AM EDT Bhavya Carter MD POINT OF CARE TEST ORDERABLES F inal Result [facility]
[address] [place] [address], * Procedure Scanned (10/18/2024) Shilpa De Leon APRN PROCEDURE/MINOR SURGICAL ORDERA BLES Final Result documented in this encounter Visit Diagnoses Diagnosis Gestational hypertension, antepartum- Primary care, antepartum, unspecified Elevated LFTs Other abnormal blood chemistry documented in this encounter Care Teams Potato Peeling Machine Operator Relationship Specialty Start Date End Date Sue Lieberman APRN [address] [place] [address] PCP - General Internal Medicine 03/09/24 documented as of this encounter
--- OUTSIDE RECORDS SUMMARY | 2024-10-19 21:10 | XMS_ITS | Encounter Summary ---
[facility] [address] [place] [address] Care Team Providers Care Media Manager Name Role Phone Sue Lieberman TRACTION POWER ENGINEER Primary Care Provider [phone] Reason for Visit * Reason Comments Abdominal Pain RUQ per pt Encounter Details Date Type Department Care Team (Late st Contact Info) Description 10/19/2024 9:10 PM EDT - 10/19/2024 11:46 PM EDT Hospital Encounter [facility] [address] [phone] Bhavya Carter MD [address] [place] [address] Romeo Ayala III, MD [address] [place] [address] Discharge Disposition: Home or Self Care Social History Tobacco Use Types Packs/Day Years Used Date Smoking Tobacco: Never Smokeless Tobacco: Never Alcohol Use Standard Drinks/Week Comments Not Currently 2 (1 standard drink = 0.6 oz pur e alcohol) [facility] Utilities Answer Date Recorded In the [...] and heating? Not hard at all 10/13/2024 [facility] Answer Date Recorded [...] GED or equivalent No 10/13/2024 Preferred Language Vincentian 10/13/2024 PHQ-2 Answer Date Recorded Patient Health Questionnaire-2 Score 0 10/13/2024 Comments Yes Sex and Gender Information Value Date Recorded Sex Assigned at Female 10/01/2024 2:08 PM EDT Legal Sex Female 10:46 AM EDT Gender Identity Not on file Sexual Orientation Not on file documented as of this encounter Last Filed Vital Signs Vital Sign Reading Time Taken Comments Blood Pressure 118/70 10/19/2024 9:27 PM EDT Pulse 108 10/19/2024 9:27 PM EDT Temperature 36.7 C (98.1 F) 10/19/2024 9:27 PM EDT Respiratory Rate 16 10/19/2024 9:27 PM EDT Oxygen Saturation 96% 10/19/2024 9:27 PM EDT Inhaled Oxygen Concentration - - Weight - - Height - - Body Mass Index - - documented in this encounter Functional Status * Question Answer Date of Assessment Author 1. Wish to be (Past 1 Month) No 10/19/2024 9:25 PM EDT Dileep Doan RN 2. Non-Specific Active Suicidal Thoughts (Past 1 Month) No 10/19/2024 9:25 PM EDT Dileep Doan RN * Calculated C-SSRS Risk Score (Lifetime/Recent) Answer Date of Assessment Author No Risk Indicated 10/19/2024 9:25 PM EDT Peggy Chacon RN * [place] Suicide Severity Rating Scale (Screener/Recent Self-Report) Question Answer Date of Assessment Author 6. Suicidal Behavior (Lifetime) No 10/19/2024 9:25 PM EDT Dileep Doan RN documented as of this encounter Discharge Instructions * Appointments* Peggy Doan RN - 10/19/2024 10:58 PM EDT Keep scheduled appointments, follow up as needed. * Attachments The following attachments cannot be sent through Care Everywhere. * Third Trimester of (Vincentian) * High Blood Pressure During (Vincentian) * HELLP Syndrome: What to Know (Vincentian) documented in this encounter Medications at Time of Discharge amitriptyline (ELAVIL) 50 MG tablet Take 1 tablet by mouth Every Night. labetalol (NORMODYNE) 200 MG tablet Take 0.5 tablets by mouth Daily. 10/18/2024 montelukast (SINGULAIR) 10 MG tablet Take 1 tablet by mouth Daily. 30 tablet 9 05/05/2024 05/05/2025 aspirin 81 MG chewable tablet Chew 1 tablet Daily. 11/28/2024 cetirizine (zyrTEC) 10 MG tablet Take 1 tablet by mouth Daily. 11/28/2024 docusate sodium (Colace) 100 MG capsuleIndication s:Iron deficiency anemia during Take 1 capsule by mouth 2 (Two) Times a Day. 60 capsule 2 09/25/2024 11/28/2024 polyethylene glycol (MiraLax) 17 GM/SCOOP powder Take 17 g by mouth Daily. 10/28/2024 documented as of this encounter Miscellaneous Notes * JERICA Notes - Romeo Ayala III, MD - 10/19/2024 9:56 PM EDT Images from the original note were not included. [facility] Obstetric History and Physical Chief Complaint Patient presents with Abdominal Pain RUQ per pt Subjective Patient is a 24 y.o. female currently at 32w0d, who presents with complaints of right upperquadrant pain which began earlier today the pain is described as mild and without radiation. She denies nausea/vomiting., Headache, scotomata or epigastric pain. She denies contractions, vaginal bleeding or leakage of fluid. She is normotensive on presentation this evening. Her care is notable for gestational hypertension she states approximately 4 weeks ago she was started on labetalol 100 mg daily. Her previous obstetric/gynecological history is noncontributory. The following portions of the patients history were reviewed and updated as appropriate: current medications, allergies, past medical history, past surgical history, past family history, and past social history . Information: Maternal Labs Blood Type No results found for: ABO Rh Status No results found for: RH Antibody Screen No results found for: ABSCRN Gonnorhea No results found for: GCCX Chlamydia No results found for: CLAMYDCU RPR No results found for: RPR Syphilis Antibody No results found for: SYPHILIS Rubella No results found for: RUBELLAIGGIN Hepatitis B Surface Antigen No results found for: HEPBSAG HIV-1 Antibody No results found for: LABHIV1 Hepatitis C Antibody No results found for: HEPCAB Rapid Urin Drug Screen No results found for: AMPMETHU , BARBITSCNUR , LABBENZSCN , LABMETHSCN , LABOPIASCN , THCURSCR , COCAINEUR , AMPHETSCREEN , PROPOXSCN , BUPRENORSCNU , METAMPSCNUR , OXYCODONESCN , TRICYCLICSCN Group B Strep Culture No results found for: GBSANTIGEN External Results Outside Results - Transcribed From Office Records - See Scanned Records For Details Test Value Date Time ABO O 10/10/24 1859 Rh Positive 10/10/24 1859 Antibody Screen Negative 10/10/24 1712 Negative 09/21/24 1017 Negative 04/22/24 Varicella IgG Rubella 4.11 index 04/22/24 Hgb 12.1 g/dL 10/18/24 1059 11.1 g/dL 10/14/24 0443 10.9 g/dL 10/12/24 0520 11.1 g/dL 10/10/24 1712 11.6 g/dL 10/07/24 1046 11.2 g/dL 10/03/24 1102 11.6 g/dL 09/29/24 1022 10.8 g/dL 09/23/24 1430 11.3 g/dL 09/21/24 1017 12.1 g/dL 09/14/24 1358 13.0 g/dL 04/22/24 Hct 38.1 % 10/18/24 1059 35.3 % 10/14/24 0443 34.6 % 10/12/24 0520 33.4 % 10/10/24 1712 35.9 % 10/07/24 1046 35.7 % 10/03/24 [...] Non Reactive 04/22/24 Syphils cascade: TP-Ab (FTA) Non-Reactive 10/10/24 1712 TP-Ab Non-Reactive 10/10/24 171 TP-Ab (EIA) TPPA HBsAg Negative 09/23/24 1430 [...] PTL Lv 1 Current Past Medical History: Past Medical History: Diagnosis Date Asthma uses prn Gestational hypertension, antepartum 09/21/2024 PONV (postoperative nausea and vomiting) 07/28/2024 Severe preeclampsia 10/11/2024 Sleep apnea 2024 has c-pap Past Surgical History Past Surgical History: Procedure Laterality [...] week. reports no history of drug use. Allergies: Penicillins Current Medications: No current facility-administered medications on file prior to encounter. Current Outpatient Medications on File Prior to Encounter Medication Sig Dispense Refill amitriptyline (ELAVIL) 50 MG tablet Take 1 tablet by mouth Every Night. aspirin 81 MG chewable tablet Chew 1 tablet Daily. cetirizine (zyrTEC) 10 MG tablet Take 1 tablet by mouth Daily. docusate sodium (Colace) 100 MG capsule Take 1 capsule by mouth 2 (Two) Times a Day. 60 capsule 2 montelukast (SINGULAIR) 10 MG tablet Take 1 tablet by mouth Daily. 30 tablet 9 polyethylene glycol (MiraLax) 17 GM/SCOOP powder Take 17 g by mouth Daily. General ROS: A 12 point review of systems was performed and is negative except as per history of present illness. Objective Vital Signs Range for the last 24 hours Temperature: Temp: [98.1 ??F (36.7 ??C)] 98.1 ??F (36.7 ??C) Temp Source: Temp src: Oral BP: BP: (118)/(70) 118/70 Pulse: Heart Rate: [108] 108 Respirations: Resp: [16] 16 SPO2: SpO2: [96 %] 96 % O2 Amount (l/min): O2 Devices Weight: Physical Examination: General appearance - alert, well appearing, and in no distress, oriented to person, place, and time, and overweight Mental status - alert, oriented to person, place, and time, normal mood, behavior, speech, dress, motor activity, and thought processes Eyes - pupils equal and reactive, extraocular eye movements intact, sclera anicteric Neck - supple, no significant adenopathy, thyroid exam: thyroid is normal in size without nodules or tenderness Chest - clear to auscultation, no wheezes, rales or rhonchi, symmetric air entry Heart - normal rate, regular rhythm, normal S1, S2, no murmurs, rubs, clicks or gallops Abdomen- Abdomen, Non-Tender. No epigastric pain on palpation. Neurological -DTRs 2+/no clonus. Extremities -1+ pedal edema Heart Rate Assessment Indication: Right upper quadrant abdominal pain Start Time: 2121 end Time: 2201 NST Results: Reactive NST. heart rate baseline 140 bpm. Moderate variability with 15 x 15 accelerations noted. No decelerations. Only an occasional contraction noted. Laboratory Results: Lab Results Component Value Date ALKPHOS 93 10/14/2024 ALT 73 (H) 10/18/2024 AST 39 10/18/2024 CREATININE 0.51 (L) 10/18/2024 BILITOT 0.2 10/14/2024 LDH 195 10/18/2024 URICACID 4.4 10/18/2024 WBC Date Value Ref Range Status 10/18/2024 10.2 3.4 - 10.8 x10E3/uL Final RBC Date Value Ref Range Status 10/18/2024 4.25 3.77 - 5.28 x10E6/uL Final Hemoglobin Date Value Ref Range Status 10/18/2024 12.1 11.1 - 15.9 g/dL Final Hematocrit Date Value Ref Range Status 10/18/2024 38.1 34.0 - 46.6 % Final MCV Date Value Ref Range Status 10/18/2024 90 79 - 97 fL Final MCH Date Value Ref Range Status 10/18/2024 28.5 26.6 - 33.0 pg Final MCHC Date Value Ref Range Status 10/18/2024 31.8 31.5 - 35.7 g/dL Final RDW Date Value Ref Range Status 10/18/2024 14.1 11.7 - 15.4 % Final Platelets Date Value Ref Range Status 10/18/2024 230 150 - 450 x10E3/uL Final Neutrophil Rel % Date Value Ref Range Status 10/18/2024 73 Not Estab. % Final Lymphocyte Rel % Date Value Ref Range Status 10/18/2024 18 Not Estab. % Final Monocyte Rel % Date Value Ref Range Status 10/18/2024 9 Not Estab. % Final Eosinophil Rel % Date Value Ref Range Status 10/18/2024 0 Not Estab. % Final Basophil Rel % Date Value Ref Range Status 10/18/2024 0 Not Estab. % Final Neutrophils Absolute Date Value Ref Range Status 10/18/2024 7.4 (H) 1.4 - 7.0 x10E3/uL Final Lymphocytes Absolute Date Value Ref Range Status 10/18/2024 1.8 0.7 - 3.1 x10E3/uL Final Monocytes Absolute Date Value Ref Range Status 10/18/2024 0.9 0.1 - 0.9 x10E3/uL Final Eosinophils Absolute Date Value Ref Range Status 10/18/2024 0.0 0.0 - 0.4 x10E3/uL Final Basophils Absolute Date Value Ref Range Status 10/18/2024 0.0 0.0 - 0.2 x10E3/uL Final Brief Urine Lab Results (Last result in the past 365 days) Color Clarity Blood Leuk Est Nitrite Protein CREAT Urine HCG 10/19/24 2131 Trace Radiology Review: No new studies Other Studies: CBC, PEP, POC urine protein. A trace urine protein was noted. CBC confirms stable Platelet count = 226,000. Uric acid stable = 4.4. AST and ALT are essentially unchanged from 10/14. Assessment & Plan * No active hospital problems. * Assessment: Right upper quadrant abdominal pain. No evidence of HELLP. Gestational hypertension. Patient is normotensive this evening. 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 No recent increase in LFTs. NST confirms reactive tracing. wellbeing confirmed. Plan: Discharge home. Reviewed signs/symptoms of severe preeclampsia. Keep regularly scheduled OB office visit. Total time spent today with Penny was 40 minutes (level 5). Of this time, > 50% was spent [id number] time coordinating care, answering her questions and counseling regarding preeclampsia/HELLP. Romeo Ayala III, MD 10/19/2024 21:58 EDT documented in this encounter Plan of Treatment Upcoming Encounters Date Type Department Care Team (Late st Contact Info) Description 12/01/2024 3:15 PM EDT Visit [facility] [address] [facility] [address] [place] [phone] Sheldon Godoy, TRACTION POWER ENGINEER [address] [facility] [address] [place], [place] [address] 09/22/2025 2:45 PM EDT Office Visit [facility] [address] [facility] [address] [place] [address] Dave Montaño, TRACTION POWER ENGINEER [address] [place] [address] documented as of this encounter Procedures Procedure Name Priority Date/Time Associated Diagnosis Comments PRE-ECLAMPSIA PANEL STAT 10/19/2024 9 :58 PM EDT CBC WITH AUTO DIFFERENTIAL STAT 10/19/2024 9:58 PM EDT CBC AND DIFFERENTIAL STAT 10/19/2024 9:58 PM EDT POCT PROTEIN, URINE, QUALITATIVE, DIPSTICK Routine 10/19/2024 9:31 PM EDT documented in this encounter Results * (ABNORMAL) CBC Auto Differential (10/19/2024 9:58 PM EDT) WBC 10.82(H) 3.40 - 10.80 10*3/mm3 10/19/2024 10:19 PM EDT [facility] RBC 3.98 3.77 - 5.28 10*6/mm3 10/19/2024 10:19 PM EDT [facility] Hemoglobin 11.4(L) 12.0 - 15.9 g/dL 10/19/2024 10:19 PM EDT [facility] Hematocrit 35.2 34.0 - 46.6 % 10/19/2024 10:19 PM EDT [facility] MCV 88.4 79.0 - 97.0 fL 10/19/2024 10:19 PM EDT [facility] MCH 28.6 26.6 - 33.0 pg 10/19/2024 [facility] MCHC 32.4 31.5 - 35.7 g/dL 10/19/2024 10:19 [facility] RDW 15.1 12.3 - 15.4 % 10/19/2024 10:19 PM [facility] RDW-SD 48.5 37.0 - 54.0 fl 10/19/2024 10:19 PM [facility] MPV 10.6 6.0 - 12.0 fL 10/19/2024 10:19 PM [facility] Platelets 226 140 - 450 10*3/mm3 10/19/2024 10:19 PM [facility] Neutrophil % 69.4 42.7 - 76.0 % 10/19/2024 10:19 PM [facility] Lymphocyte % 22.3 19.6 - 45.3 % 10/19/2024 10:19 PM [facility] Monocyte % 7.1 5.0 - 12.0 % 10/19/2024 10:19 PM [facility] Eosinophil % 0.4 0.3 - 6.2 % 10/19/2024 10:19 PM EDT [facility] Basophil % 0.4 0.0 - 1.5 % 10/19/2024 10:19 PM [facility] Immature Grans % 0.4 0.0 - 0.5 % 10/19/2024 10:19 PM [facility] Neutrophils, Absolute 7.52(H) 1.70 - 7.00 10*3/mm3 10/19/2024 10:19 PM EDT [facility] Lymphocytes, Absolute 2.41 0.70 - 3.10 10*3/mm3 10/19/2024 10:19 PM EDT [facility] Monocytes, Absolute 0.77 0.10 - 0.90 10*3/mm3 10/19/2024 10:19 PM EDT [facility] Eosinophils, Absolute 0.04 0.00 - 0.40 10*3/mm3 10/19/2024 10:19 PM EDT [facility] Basophils, Absolute 0.04 0.00 - 0.20 10*3/mm3 10/19/2024 10:19 PM EDT [facility] Immature Grans, Absolute 0.04 0.00 - 0.05 10*3/mm3 10/19/2024 10:19 PM EDT [facility] nRBC 0.0 0.0 - 0.2 /100 WBC 10/19/2024 10:19 PM EDT [facility] Blood Line / Unknown 10/19/2024 9: 58 PM EDT 10/19/2024 10:04 PM EDT Romeo Ayala III, MD LAB BLOOD ORDERABLES Fi nal Result [facility]
[address] [place] [address], * (ABNORMAL) Preeclampsia Panel (10/19/2024 9:58 PM EDT) Alkaline Phosphatase 111 39 - 117 U/L 10/19/2024 10:40 PM EDT [facility] ALT (SGPT) 74(H) 1 - 33 U/L 10/19/2024 10:40 PM EDT [facility] AST (SGOT) 51(H) 1 - 32 U/L 10/19/2024 10:40 PM EDT [facility] Creatinine 0.54(L) 0.57 - 1.00 mg/dL 10/19/2024 10:40 PM EDT [facility] Total Bilirubin 0.3 0.0 - 1.2 mg/dL 10/19/2024 10:40 PM EDT [facility] LDH 290(H) 135 - 214 U/L 10/19/2024 10:40 PM EDT [facility] Comment:Specimen hemolyzed. Results may be affected. Uric Acid 4.4 2.4 - 5.7 mg/dL 10/19/2024 10:40 PM EDT [facility] Blood Line / Unknown 10/19/2024 9: 58 PM EDT 10/19/2024 10:04 PM EDT Romeo Ayala III, MD LAB BLOOD ORDERABLES Fi nal Result [facility]
[address] [place] [address], * (ABNORMAL) POC Protein, Urine, Qualitative, Dipstick (10/19/2024 9:31 PM EDT) Protein, POC Trace(A) Negative mg/dL [facility] Lot Number [id number] [facility] Expiration Date [facility] Urine 10/19/2024 9:31 PM EDT Romeo Ayala III, MD POINT OF CARE TEST ORDE RABSARA Final Result [facility]
[address] [place] [address], documented in this encounter Visit Diagnoses Not on filedocumented in this encounter Care Teams Media Manager Relationship Specialty Start Date End Date Sue Lieberman APRN [address] [place] [address] [place] [address] PCP - General Internal Medicine 03/09/24 documented as of this encounter
--- OUTSIDE RECORDS SUMMARY | 2024-10-20 16:00 | XMS_ITS | Encounter Summary ---
[facility] Address [address] [place] [address] Care Team Providers Care Outsole Handler Name Role Phone Sue Lieberman APRN Primary Care Provider [phone] Reason for Referral * Diagnostic Imaging (Routine) - Closed Specialty Diagnoses / Procedures Referred By Ernieac t Referred To Contact Radiology Diagnoses Obesity affecting , antepartum, unspecified obesity type 32 weeks gestation of Antepartum mild preeclampsia Procedures US [facility] Karan Carter MD [address] [facility] [address] [place] [address] Phone: tel: fax: [facility] US PER DI[facility] [address] [place] [address] Phone: tel: Referral ID Status Reason Start Date Expiration Date Visits Re quested Visits Authorized [id number] Closed 10/20/2024 01/19/2026 1 1 Reason for Visit * Reason Comments Routine Visit Non-stress Test Encounter Details Date Type Department Care Team (Late Contact Info) Description 10/20/2024 4:00 PM EDT Routine [facility] OBGYN [address] [facility] [address] [place] [phone] Karan Carter MD [address] [place] [address] GA: 32w1d Social History Tobacco Use Types Packs/Day Years Used Date Smoking Tobacco: Never Smokeless Tobacco: Never Alcohol Use Standard Drinks/Week Comments Not Currently 2 (1 standard drink = 0.6 oz pur e alcohol) [facility] Utilities Answer Date Recorded In the [...] and heating? Not hard at all 10/13/2024 [facility] - Occupational Stress [...] none 10/13/2024 Family and Community Support Answer Jean-Claued e Recorded If for any reason you [...] GED or equivalent No 10/13/2024 Preferred Language Kiswahili 10/13/2024 PHQ-2 Answer Date Recorded Patient Health Questionnaire-2 Score 0 10/13/2024 Comments Yes Sex and Gender Information Value Date Recorded Sex Assigned at Female 10/01/2024 2:08 PM EDT Legal Sex Female 10:46 AM EDT Gender Identity Not on file Sexual Orientation Not on file documented as of this encounter Last Filed Vital Signs Vital Sign Reading Time Taken Comments Blood Pressure 118/72 10/20/2024 4:06 PM EDT Pulse - - Temperature - - Respiratory Rate - - Oxygen Saturation - - Inhaled Oxygen Concentration - - Weight 131 kg (289 lb 12.8 oz) 10/20/2024 4:06 PM EDT Height - - Body Mass Index 51.35 09/16/2024 2:28 PM EDT documented in this encounter Progress Notes * Karan Carter MD - 10/20/2024 4:00 PM EDT Images from the original note were not included. OB FOLLOW UP CC- Here for care of Penny Kebede is a 24 y.o. 32w1d patient being seen today for her obstetrical follow up visit. Patient reports having dull RUQ pain, headache last PM, and trace swelling in BLE. Patient reported to L&D Triage last PM for RUQ pain. Patient was normotensive and LFT's stable. status was reassuring. Patient d/c'd home. Her care is complicated by (and status) : GHTN. Her average BP has been 130s/80s before taking medication and decrease to 100s/70s. Patient Active Problem List Diagnosis Asthma Obesity affecting , antepartum Morbid obesity with BMI of 50.0-59.9, adult Teratogen exposure in current Gestational hypertension, antepartum Antepartum mild preeclampsia TDAP status: declines Ultrasound Today: No Non Stress Test: Yes, 20 minutes Non-stress test: NST: Reactive Indication: Hypertension ROS - Patient Denies: Loss of Fluid, Vaginal Spotting, Vision Changes, Nausea , Vomiting , Contractions, Epigastric pain, and skin itching Movement : normal Other than what is documented in the HPI, all other systems reviewed and are negative. The additional following portions of the patient's history were reviewed and updated as appropriate: allergies, current medications, and problem list. I have reviewed and agree with the HPI, ROS, and historical information as entered above. Karan Carter MD BP 118/72 Wt 131 kg (289 lb 12.8 oz) LMP 02/25/2024 (Approximate) BMI 51.35 kg/m?? EXAM: Vitals BP: 118/72 Weight: 131 kg (289 lb 12.8 oz) Heart Rate: NST NST NOTE Indiction : AMA FHR: Reactive, Cat 1, No decels Contractions: Irregular Time Monitored: > 20 minutes Urine Glucose Read-only: Negative Urine Protein Read-only: Negative Assessment and Plan Problem List Items Addressed This Visit Gravid and Obesity affecting , antepartum - Primary Relevant Orders POC Urinalysis Dipstick (Completed) Relevant Orders POC Urinalysis Dipstick (Completed) Teratogen exposure in current Relevant Orders POC Urinalysis Dipstick (Completed) Antepartum mild preeclampsia Relevant Medications labetalol (NORMODYNE) 200 MG tablet Other Relevant Orders AlP+ALT+AST+Creat+LD+TBili+.. at 32w1d Most recent 24 hour urine c/w preeclampsia. Repeat labs due to continued pain in RUQ. Come in for any changes or worsening of symptoms. LFT have been stable and unlikely due to preeclampsia but things can change rapidly. 24 hour urine for protein status reassuring. 28 week labs reviewed. Activity and Exercise discussed. movement/PTL or Labor precautions Return in about 4 days (around 10/24/2024) for NST. Karan Carter MD 10/20/2024 documented in this encounter Plan of Treatment Upcoming Encounters Date Type Department Care Team (Late st Contact Info) Description 12/01/2024 3:15 PM EDT Visit [facility] OBGYN [address] [phone] Sheldon Godoy, DIRECTOR OF CODING [address] [facility] [address] [place] [address] 09/22/2025 2:45 PM EDT Office Visit [facility] SLEEP MEDICINE [address] [facility] [address] [place] [id number] Dave Montaño, DIRECTOR OF CODING [address] [place] [address] Scheduled Orders Name Type Priority Associated Diagnoses Orde r Schedule Protein, Urine, 24 Hour - Urine, Clean Catch Lab Routine Obesity affecting , antepartum, unspecified obesity type 32 weeks gestation of Antepartum mild preeclampsia Ordered: 10/20/2024 documented as of this encounter Procedures Procedure Name Priority Date/Time Associated Diagnosis Comments [facility] Routine 10/31/2024 9:59 AM EDT Obesity affecting , antepartum, unspecified obesity type 32 weeks gestation of Antepartum mild preeclampsia ALP+ALT+AST+CREAT+L D+TBILI+.. Routine 10/20/2024 5:34 PM EDT Antepartum mild preeclampsia POCT URINALYSIS DIPSTICK, MANUAL Routine 10/20/2024 4:07 PM EDT Obesity affecting , antepartum, unspecified obesity type 32 weeks gestation of Teratogen exposure in current , single or unspecified fetus SCANNED - PROCEDURE 10/20/2024 documented in this encounter Results * [facility] (10/31/2024 9:59 AM EDT) Anatomical Region Laterality Modality Ultrasound 10/31/2024 9:37 AM EDT Narrative 11/01/2024 12:41 PM EDT PAT NAME: PENNY KEBEDE MED REC#: [id number] DA: [id number] PAT GEND: F PAT TYPE: O EXAM JEAN-CLAUDE: [id number] REF PHYS KARAN CARTER Comparison Studies The findings of this study are compared to the prior ultrasound study dated 10/11/24 Patient Status Outpatient Indication ======== Preeclampsia. Super obesity BMI 52. Maternal Assessment Height 160 cm Height (ft) 5 ft Height (in) 3 in Weight 132 kg Weight (lb) 292 lb BMI 51.74 kg/m Method ======= Transabdominal ultrasound examination. View: Suboptimal view: limited by position ========= Navarro . Number of fetuses: 1 Dating ====== LMP on: 02/25/2024 GA by LMP 35 w + 4 d KAREN by LMP: 12/01/2024 Method of dating: based on stated KAREN GA by prior assessment 33 w + 5 d KAERN by prior assessment: 12/14/2024 Ultrasound examination on: 10/31/2024 GA by U/S based upon: AC, BPD, Femur, HC GA by U/S 35 w + 0 d KAREN by U/S: 12/05/2024 Previous dating: based on stated KAREN, selected on 10/11/2024 Agreed KAREN of previous datin12/14/2024 Assigned: based on stated KAREN, selected on 10/31/2024 Assigned GA 33 w + 5 d Assigned KAREN: 12/14/2024 length 280 d Biometry Standard BPD 87.8 mm 35w 3d 89% Hadlock OFD 107.7 mm 35w 4d 85% Mary HC 312.6 mm 35w 0d 46% Hadlock AC 301.9 mm 34w 1d 66% Hadlock Femur 68.8 mm 35w 2d 81% Hadlock Humerus 60.4 mm 35w 0d 89% Mary HC / AC 1.04 EFW 2,493 g 34w 4d 72% Hadlock EFW (lb) 5 lb EFW (oz) 8 oz EFW by: Hadlock ([id number]) Extended Portal Administrator 6.7 mm Head / Face / Neck Cephalic index 0.82 63% Nicolaides Extremities / Bony Struc FL / BPD 0.78 FL / HC 0.22 FL / AC 0.23 Other Structures FHR 125 bpm General Evaluation Cardiac activity present. FHR 125 bpm. movements present. Presentation cephalic. Placenta Placental site: posterior. Amniotic fluid Amount of AF: normal. MVP 6.5 cm. JD 15.0 cm. Q1 3.4 cm, Q2 2.6 cm, Q3 6.5 cm, Q4 2.6 cm. Anatomy Cranium: Appears normal Head / Neck Rt lateral ventricle: Appears normal Lt lateral ventricle: Appears normal Lips: Normal 4-chamber view: Appears normal Stomach: Appears normal Kidneys: Appears normal Bladder: Appears normal Gender: female Wants to know gender: yes Doppler Arterial Umbilical A PI 0.92 60% Momo Umbilical A RI 0.57 38% Momo Umbilical A PS -39.81 cm/s Umbilical A ED -17.22 cm/s Umbilical A TAmax -24.45 cm/s Umbilical A MD -11.26 cm/s Umbilical A S / D 2.31 31% Momo Umbilical A HR 152 bpm Biophysical Profile 2: breathing movements 2: Gross body movements 2: tone 2: Amniotic fluid volume 12/09 Biophysical profile score Consultation / Office Visit Office note to follow Impression Today's exam reveals a SIUP in cephalic presentation with biometry consistent with dates. Limited anatomic survey appears normal. The JD and BPP are normal. Coding ======= Description: 26016-30 Follow Up Ultrasound Description: 76979-90 BPP without NST Alternative Medicine Practitioner: RT Hermilo Sena , [facility] Physician: Britt Paul MD, FACOG Electronically signed by: Britt Paul MD, FACOG at: 12:41 Procedure Note Britt Paul MD - 11/01/2024 PAT NAME: PENNY KEBEDE MED REC#: [id number] DA: [id number] PAT GEND: F PAT TYPE: O EXAM JEAN-CLAUDE: [id number] REF PHYS KARAN CARTER Comparison Studies The findings of this study are compared to the prior ultrasound studydated 10/11/24 Patient Status Outpatient Indication ======== Preeclampsia. Super obesity BMI 52. Maternal Assessment [id number] cm Height (ft)5 ft Height (in)3 in Kqolzm633 kg Weight (lb)292 lb BMI51.74 kg/m Method ======= Transabdominal ultrasound examination. View: Suboptimal view: limited byfetal position ========= Navarro . Number of fetuses: 1 Dating ====== LMP on:02/25/2024 GA by LMP35 w + 4 d KAREN by LMP:12/01/2024 Method of dating:based on stated KAREN GA by prior [id number] w + 5 d KAREN by prior assessment:12/14/2024 Ultrasound examination on:10/31/2024 GA by U/S based upon:AC, BPD, Femur, HC GA by U/S35 w + 0 d KAREN by U/S:12/05/2024 Previous dating:based on stated KAREN, selected on 10/11/2024 Agreed AKREN of previous datin12/14/2024 Assigned:based on stated KAREN, selected on 10/31/2024 Assigned GA33 w + 5 d Assigned KAREN:12/14/2024 [id number] d Biometry Standard BPD87.8 mm 35w 3d 89% Hadlock IRA156.7 mm 35w 4d 85% Mary HC312.6 mm 35w 0d 46% Hadlock AC301.9 mm 34w 1d 66% Hadlock Femur68.8 mm 35w 2d 81% Hadlock Dvjizir74.4 mm 35w 0d 89% Mary HC / AC1.04 EFW2,493 g 34w 4d 72% Hadlock EFW (lb)5 lb EFW (oz)8 oz EFW by:Hadlock ([id number]) Extended Vp6.7 mm Head / Face / Neck Cephalic index0.82 63% Nicolaides Extremities / Bony Struc FL / BPD0.78 FL / HC0.22 FL / AC0.23 Other Structures [id number] bpm General Evaluation Cardiac activity present. FHR 125 bpm. movements present. Presentation cephalic. Placenta Placental site: posterior. Amniotic fluid Amount of AF: normal. MVP 6.5 cm. JD 15.0 cm. Q1 3.4 cm,Q2 2.6 cm, Q3 6.5 cm, Q4 2.6 cm. Anatomy Cranium:Appears normal Head / Neck Rt lateral ventricle:Appears normal Lt lateral ventricle:Appears normal Lips:Normal 4-chamber view:Appears normal Stomach:Appears normal Kidneys:Appears normal Bladder:Appears normal Gender:female Wants to know gender:yes Doppler Arterial Umbilical A PI0.92 60% Momo Umbilical A RI0.57 38% Momo Umbilical A PS-39.81 cm/s Umbilical A ED-17.22 cm/s Umbilical A TAmax-24.45 cm/s Umbilical A MD-11.26 cm/s Umbilical A S / D2.31 31% Momo Umbilical A HR152 bpm Biophysical Profile 2: breathing movements 2: Gross body movements 2: tone 2: Amniotic fluid volume 12/09 Biophysical profile score Consultation / Office Visit Office note to follow Impression Today's exam reveals a SIUP in cephalic presentation with biometryconsistent with dates. Limited anatomic survey appears normal. TheAFI and BPP are normal. Coding ======= Description:44367-69 Follow Up Ultrasound Description:64018-70 BPP without NST Alternative Medicine Practitioner: RT Hermilo Sena , [facility] Physician: Britt Paul MD, FACOG Electronically signed by: Britt Paul MD, FACOG at: 2:41 Karan Carter MD [facility] US ORDERABLES Final Result * (ABNORMAL) AlP+ALT+AST+Creat+LD+TBili+.. (10/20/2024 5:34 PM EDT) Uric Acid 3.9 2.6 - 6.2 mg/dL [facility] Comment:Therapeutic target f or gout patients: <6.0 Creatinine 0.42(L) 0.57 - 1.00 mg/dL [facility] EGFR Result 139 >59 mL/min/1.7 3 [facility] Total Bilirubin 0.2 0.0 - 1.2 mg/dL [facility] Alkaline Phosphatase 112 44 - 121 IU/L [facility] LDH 194 119 - 226 IU/L [facility] AST (SGOT) 58(H) 0 - 40 IU/L [facility] ALT (SGPT) 92(H) 0 - 32 IU/L [facility] WBC 9.5 3.4 - 10.8 x10E3/uL [facility] RBC 4.36 3.77 - 5.28 x10E6/uL [facility] Hemoglobin 12.3 11.1 - 15.9 g/dL [facility] Hematocrit 38.4 34.0 - 46.6 % [facility] MCV 88 79 - 97 fL [facility] MCH 28.2 26.6 - 33.0 pg [facility] MCHC 32.0 31.5 - 35.7 g/dL [facility] RDW 14.0 11.7 - 15.4 % [facility] Platelets 253 150 - 450 x10E3/uL [facility] Neutrophil Rel % 70 Not Estab. % [facility] Lymphocyte Rel % 21 Not Estab. % [facility] Monocyte Rel % 9 Not Estab. % [facility] Eosinophil Rel % 0 Not Estab. % [facility] Basophil Rel % 0 Not Estab. % [facility] Neutrophils Absolute 6.6 1.4 - 7.0 x10E3/uL [facility] Lymphocytes Absolute 2.0 0.7 - 3.1 x10E3/uL [facility] Monocytes Absolute 0.8 0.1 - 0.9 x10E3/uL [facility] Eosinophils Absolute 0.0 0.0 - 0.4 x10E3/uL [facility] Basophils Absolute 0.0 0.0 - 0.2 x10E3/uL [facility] Immature Granulocyte Rel % 0 Not Estab. % [facility] Immature Grans Absolute 0.0 0.0 - 0.1 x10E3/uL [facility] Blood 10/20/2024 5:34 PM EDT 10/20/2024 Narrative [facility] - 10/21/2024 5:36 AM EDT Performed at: - [facility] [id number] Special Education Director: Cristian Acuña PhD, Phone: [phone] us Karan Carter MD LAB BLOOD ORDERABLES Final Resu lt [facility] [address] [place] [address], [place] [phone] [facility] [address] [place] [address], [place] [phone] * POC Urinalysis Dipstick (10/20/2024 4:07 PM EDT) Glucose, UA Negative Negative mg/dL [facility] Protein, POC Negative Negative mg/dL [facility] Urine 10/20/2024 4:07 PM EDT us Karan Carter MD POINT OF CARE TEST ORDERABLES F inal Result [facility]
[address] [place] [address], * Procedure Scanned (10/20/2024) us Karan Carter MD PROCEDURE/MINOR SURGICAL ORDERA BLES Final Result documented in this encounter Visit Diagnoses Diagnosis Obesity affecting , antepartum, unspecified obesity type- Primary 32 weeks gestation of Teratogen exposure in current , single or unspecified fetus Antepartum mild preeclampsia documented in this encounter Care Teams Outsole Handler Relationship Specialty Start Date End Date Sue Lieberman APRN [address] [place] [address] PCP - General Internal Medicine 03/09/24 documented as of this encounter
--- OUTSIDE RECORDS SUMMARY | 2024-10-25 09:15 | XMS_ITS | Encounter Summary ---
Author Organization [facility] ystem Address [address] [place] [address] Care Team Providers Care Shipping Helper Name Role Phone LiebermanSue duran ALEE Primary Care Provider [phone] Reason for Visit * Reason Comments Routine Visit Non-stress Test Encounter Details Date Type Department Care Team (Late st Contact Info) Description 10/25/2024 9:15 AM EDT Routine [facility] OBGYN [address] [place] [address] Shilpa De Leon APRN [address] [facility] [address] [place] [address] GA: 32w6d Social History Tobacco Use Types Packs/Day Years Used Date Smoking Tobacco: Never Smokeless Tobacco: Never Alcohol Use Standard Drinks/Week Comments Not Currently 2 (1 standard drink = 0.6 oz pur e alcohol) [facility] Utilities Answer Date Recorded In the past 12 months has 2 Minutes, gas, oil, or water [email or web address] threatened to shut off services in your [...] and heating? Not hard at all 10/13/2024 [facility] Occupat ional [facility] - Occupational Stress Questionnaire Answer Date [...] GED or equivalent No 10/13/2024 Preferred Language Wolof 10/13/2024 PHQ-2 Answer Date Recorded Patient Health Questionnaire-2 Score 0 10/13/2024 Comments Yes Sex and Gender Information Value Date Recorded Sex Assigned at Female 10/01/2024 2:08 PM EDT Legal Sex Female 10:46 AM EDT Gender Identity Not on file Sexual Orientation Not on file documented as of this encounter Last Filed Vital Signs Vital Sign Reading Time Taken Comments Blood Pressure 130/72 10/25/2024 9:25 AM EDT Pulse - - Temperature - - Respiratory Rate - - Oxygen Saturation - - Inhaled Oxygen Concentration - - Weight 132 kg (291 lb 3.2 oz) 10/25/2024 9:25 AM EDT Height - - Body Mass Index 51.6 09/16/2024 2:28 PM EDT documented in this encounter Progress Notes * Shilpa De Leon APRN - 10/25/2024 9:15 AM EDT Images from the original note were not included. OB FOLLOW UP CC- Here for care of Penny Kebede is a 24 y.o. 32w6d patient being seen today for her obstetrical follow up visit. Patient reports nausea with vomiting x2 yesterday, swelling in lower extremities, intermittent RUQ, improved since she was last here, and her BP's at home have been 130-140/90 in the mornings, after taking medication 110-120/60's. Her care is complicated by (and status) : see below. Patient Active Problem List Diagnosis Asthma Obesity affecting , antepartum Morbid obesity with BMI of 50.0-59.9, adult Teratogen exposure in current Gestational hypertension, antepartum Antepartum mild preeclampsia TDAP status: declines RSV vaccine: currently not in season Rhogam status: was not indicated 28 week labs: Reviewed Ultrasound Today: No Non Stress Test: Yes minutes 20+ non-stress test: NST: Reactive indication: Hypertension ROS - Patient Denies: Loss of Fluid, Vaginal Spotting, Vision Changes, Headaches, Contractions, and skin itching Movement : normal Other than what is documented in the HPI, all other systems reviewed and are negative. The additional following portions of the patient's history were reviewed and updated as appropriate: allergies and current medications. I have reviewed and agree with the HPI, ROS, and historical information as entered above. Shilpa De Leon APRN BP 130/72 Wt 132 kg (291 lb 3.2 oz) LMP 02/25/2024 (Approximate) BMI 51.60 kg/m?? EXAM: Vitals BP: 130/72 Weight: 132 kg (291 lb 3.2 oz) Heart Rate: NST Urine Glucose Read-only: Negative Urine Protein Read-only: Negative Assessment and Plan Problem List Items Addressed This Visit Antepartum mild preeclampsia - Primary Relevant Medications labetalol (NORMODYNE) 200 MG tablet Other Visit Diagnoses -induced hypertension in third trimester Relevant Orders POC Urinalysis Dipstick (Completed) Preeclampsia Panel Nausea and vomiting in Relevant Medications ondansetron ODT (ZOFRAN-ODT) 4 MG disintegrating tablet at 32w6d status reassuring. PEP's ordered today. Pt requested zofran, discussed side effects of headache and constipation, take sparingly. Activity and Exercise discussed. movement/PTL or Labor precautions Lab(s) Ordered Reviewed Pre-eclampsia signs/symptoms Return in about 3 days (around 10/28/2024) for NST. Shilpa De Leon APRN 10/25/2024 documented in this encounter Plan of Treatment Upcoming Encounters Date Type Department Care Team (Late st Contact Info) Description 12/01/2024 3:15 PM EDT Visit [facility] OBGYN [address] [facility] [address] [place] [address] Sheldon Godoy APRN [address] [facility] [address] [place] [id number] 09/22/2025 2:45 PM EDT Office Visit [facility] SLEEP MEDICINE [address] [facility] [address] [place] [address] Dave Montaño, CANDY DECORATOR [address] [place] [address] documented as of this encounter Procedures Procedure Name Priority Date/Time Associated Diagnosis Comments CONV SPECIMEN STATUS REPORT* Routine 10/25/2024 10:14 AM EDT PRE-ECLAMPSIA PANEL Routine 10/25/2024 1 0:14 AM EDT -induced hypertension in third trimester PROTEIN, URINE, 24 HOUR Routine 10/25/2024 10:14 AM EDT POCT URINALYSIS DIPSTICK, MANUAL Routine 10/25/2024 9:25 AM EDT -induced hypertension in third trimester SCANNED - PROCEDURE 10/25/2024 documented in this encounter Results * (ABNORMAL) Protein, Urine, 24 Hour - (10/25/2024 10:14 AM EDT) Total Protein, Urine 9.8 Not Estab. mg/dL [facility] Protein, 24H Urine 225(H) 30 - 150 mg/24 hr [facility] 10/25/2024 10:1 4 AM EDT 10/25/2024 Narrative [facility] ([facility]) - 10/26/2024 11:11 AM EDT Performed at: 01 - [facility] [address] [id number] Breaker Oiler: Cristian Acuña PhD, Phone: [phone] Shilpa De Leon APRN URINE ORDERABLES Final Result [facility] ([facility]) [address] [place] [address], [facility] [address] [place] [address], [place] [phone] * Specimen Status Report (10/25/2024 10:14 AM EDT) Pathologist [facility] Specimen Status Comment [facility] Comment: Unable [...] testing will be performed and separately reported. 10/25/2024 10:1 4 AM EDT 10/25/2024 Narrative [facility] ([facility]) - 10/26/2024 3:35 AM EDT Performed at: - [address] [id number] Breaker Oiler: Cristian Acuña PhD, Phone: [phone] Shilpa De Leon APRN LAB BLOOD ORDERABLES Final Resu lt [facility] (AMBULATORY) [address] [place] [address], [place] [phone] [facility] [address] [place] [address], [place] [phone] * (ABNORMAL) Preeclampsia Panel (10/25/2024 10:14 AM EDT) [facility] Uric Acid 4.9 2.6 - 6.2 mg/dL [facility] Comment:Therapeutic target f or gout patients: <6.0 BUN 6 6 - 20 mg/dL [facility] Creatinine 0.57 0.57 - 1.00 mg/dL [facility] EGFR Result 129 >59 mL/min/1.7 3 [facility] LDH 219 119 - 226 IU/L [facility] AST (SGOT) 55(H) 0 - 40 IU/L [facility] ALT (SGPT) 73(H) 0 - 32 IU/L [facility] Creatinine, Urine 55.9 Not Estab. mg/dL [facility] Microalbumin, Urine <3.0 Not Estab. ug/mL [facility] Microalbumin/Cre atinine Ratio <5 0 - 29 mg/g creat [facility] Comment: Normal: 0 - 29 Moderately increased: 30 - 300 Severely increased: >300 WBC 6.8 3.4 - 10.8 x10E3/uL [facility] RBC 4.06 3.77 - 5.28 x10E6/uL [facility] Hemoglobin 11.7 11.1 - 15.9 g/dL [facility] Hematocrit 36.8 34.0 - 46.6 % [facility] MCV 91 79 - 97 fL [facility] MCH 28.8 26.6 - 33.0 pg [facility] MCHC 31.8 31.5 - 35.7 g/dL [facility] RDW 14.0 11.7 - 15.4 % [facility] Platelets 217 150 - 450 x10E3/uL [facility] Neutrophil Rel % 70 Not Estab. % [facility] Lymphocyte Rel % 18 Not Estab. % [facility] Monocyte Rel % 12 Not Estab. % [facility] Eosinophil Rel % 0 Not Estab. % [facility] Basophil Rel % 0 Not Estab. % [facility] Neutrophils Absolute 4.7 1.4 - 7.0 x10E3/uL [facility] Lymphocytes Absolute 1.2 0.7 - 3.1 x10E3/uL [facility] Monocytes Absolute 0.8 0.1 - 0.9 x10E3/uL [facility] Eosinophils Absolute 0.0 0.0 - 0.4 x10E3/uL [facility] Basophils Absolute 0.0 0.0 - 0.2 x10E3/uL [facility] Immature Granulocyte Rel % 0 Not Estab. % [facility] Immature Grans Absolute 0.0 0.0 - 0.1 x10E3/uL [facility] Blood 10/25/2024 10:1 4 AM EDT 10/25/2024 Narrative [facility] ([facility]) - 10/26/2024 11:11 AM EDT Performed at: 01 - [facility] [id number] Breaker Oiler: Cristian Acuña PhD, Phone: [phone] us Shilpa De Leon APRN LAB BLOOD ORDERABLES Final Resu lt [facility] ([facility]) [address] [place] [address], [place] [phone] [facility] [address] [place] [address], [place] [phone] * POC Urinalysis Dipstick (10/25/2024 9:25 AM EDT) Color Dark Yellow Yellow, Straw, Dark Yellow, Alicia [facility] Clarity, UA Clear Clear [facility] Glucose, UA Negative Negative mg/dL [facility] Protein, POC Negative Negative mg/dL [facility] Urine 10/25/2024 9:25 AM EDT us Shilpa De Leon APRN POINT OF CARE TEST ORDERABLES F inal Result [facility]
[address] [place] [address], * Procedure Scanned (10/25/2024) us Shilpa De Leon APRN PROCEDURE/MINOR SURGICAL ORDERA BLES Final Result documented in this encounter Visit Diagnoses Diagnosis Antepartum mild preeclampsia- Primary -induced hypertension in third trimester Nausea and vomiting in Unspecified vomiting of , unspecified as to episode of care documented in this encounter Care Teams Shipping Helper Relationship Specialty Start Date End Date Sue Lieberman APRN [address] [place] [address] [address] [place] [address] PCP - General Internal Medicine 03/09/24 documented as of this encounter
--- OUTSIDE RECORDS SUMMARY | 2024-10-28 10:30 | XMS_ITS | Encounter Summary ---
[facility] Organization [facility] Address [address] [place] [address] Care Team Providers Care Dye Range Tender Name Role Phone Sue Lieberman APRN Primary Care Provider [phone] Reason for Referral * OBGYN (Routine) - Authorized Specialty Diagnoses / Procedures Referred By Contact Referred To Contact Obstetrics and Gynecology Diagnoses care, third trimester 33 weeks gestation of Gestational hypertension, antepartum Procedures Nonstress Test Rosalinda Uriostegui APRN [address] [facility] [address] Phone: tel: fax: [facility] OBGYN [address] [facility] [address] [place] [phone] Phone: tel: fax: Referral ID Status Reason Start Date Expiration Date V isits Requested Visits Authorized [id number] Authorized 10/28/2024 01/27/2026 1 1 Reason for Visit * Reason Comments Routine Visit Non-stress Test Encounter Details Date Type Department Care Team (Late st Contact Info) Description 10/28/2024 10:30 AM EDT Routine [facility] OBGYN [address] [facility] [address] [place] [address] Rosalinda Uriostegui APRN [address] [facility] [address] [place] [address] GA: 33w2d Social History Tobacco Use Types Packs/Day Years Used Date Smoking Tobacco: Never Smokeless Tobacco: Never Alcohol Use Standard Drinks/Week Comments Not Currently 2 (1 standard drink = 0.6 oz pur e alcohol) [facility] Utilities Answer Date Recorded In the past 12 months has th e Private Company, gas, oil, or water company threatened to [...] and heating? Not hard at all 10/13/2024 [facility] [place] Occupat ional [facility] - Occupational Stress [...] GED or equivalent No 10/13/2024 Preferred Language Colombian 10/13/2024 PHQ-2 Answer Date Recorded Patient Health Questionnaire-2 Score 0 10/13/2024 Comments Yes Sex and Gender Information Value Date Recorded Sex Assigned at Female 10/01/2024 2:08 PM EDT Legal Sex Female 10:46 AM EDT Gender Identity Not on file Sexual Orientation Not on file documented as of this encounter Last Filed Vital Signs Vital Sign Reading Time Taken Comments Blood Pressure 128/68 10/28/2024 10:49 AM EDT Pulse - - Temperature - - Respiratory Rate - - Oxygen Saturation - - Inhaled Oxygen Concentration - - Weight 132 kg (292 lb) 10/28/2024 10:49 AM EDT Height - - Body Mass Index 51.74 09/16/2024 2:28 PM EDT documented in this encounter Progress Notes * Rosalinda Uriostegui, MINIATURE TRAIN DRIVER - 10/28/2024 10:30 AM EDT Images from the original note were not included. OB FOLLOW UP CC- Here for care of Penny Kebede is a 24 y.o. 33w2d patient being seen today for her obstetrical follow up visit. Patient reports +1 BLE edema daily and resolved nausea. Home B/Ps running 120s/80s before B/Pmedication and 110s/70s afterwards. Her care is complicated by (and status): see below. Patient Active Problem List Diagnosis Asthma Obesity affecting , antepartum Morbid obesity with BMI of 50.0-59.9, adult Teratogen exposure in current Gestational hypertension, antepartum Antepartum mild preeclampsia Elevated liver enzymes Flu Status: not currently flu season Ultrasound Today: No Non Stress Test: Yes, 20+ minutes non-stress test: NST: Reactive indication: GHTN ROS - Patient Denies: Loss of Fluid, Vaginal Spotting, Vision Changes, Headaches, Nausea , Vomiting , Contractions, Epigastric pain, and skin itching Movement: normal Other than what is documented in the HPI, all other systems reviewed and are negative. The additional following portions of the patient's history were reviewed and updated as appropriate: allergies, current medications, past family history, past medical history, past social history, past surgical history, and problem list. I have reviewed and agree with the HPI, ROS, and historical information as entered above. Rosalinda Uriostegui, MINIATURE TRAIN DRIVER BP 128/68 Wt 132 kg (292 lb) LMP 02/25/2024 (Approximate) BMI 51.74 kg/m?? EXAM: Vitals BP: 128/68 Weight: 132 kg (292 lb) Heart Rate: NST+ Urine Glucose Read-only: Negative Urine Protein Read-only: Negative Assessment and Plan Problem List Items Addressed This Visit Antepartum mild preeclampsia Relevant Medications labetalol (NORMODYNE) 200 MG tablet Asthma Relevant Medications montelukast (SINGULAIR) 10 MG tablet Elevated liver enzymes Relevant Orders AlP+ALT+AST+Creat+LD+TBili+.. Gestational hypertension, antepartum Overview [ ] 2 ASA 81MG until delivery [ ] Twice weekly NST's 32 weeks until delivery [ ] Growth US q4 weeks [ ] 24 hour urine [ ] Consider weekly PEP [ ] Consider early delivery at 37 weeks Relevant Medications labetalol (NORMODYNE) 200 MG tablet Other Relevant Orders Nonstress Test Morbid obesity with BMI of 50.0-59.9, adult Obesity affecting , antepartum Relevant Orders POC Protein, Urine, Qualitative, Dipstick (Completed) POC Glucose, Urine, Qualitative, Dipstick (Completed) Nonstress Test AlP+ALT+AST+Creat+LD+TBili+.. Teratogen exposure in current Other Visit Diagnoses care, third trimester - Primary Relevant Orders POC Protein, Urine, Qualitative, Dipstick (Completed) POC Glucose, Urine, Qualitative, Dipstick (Completed) Nonstress Test AlP+ALT+AST+Creat+LD+TBili+.. at 33w2d status reassuring. Activity and Exercise discussed. movement/PTL or Labor precautions Patient is on vitamins Discussed/encouraged TDAP vaccination after 28 weeks Discussed/encouraged social distancing/COVID19 precautions; encouraged vaccination when able Reviewed FSBS goals: fasting <90, 2hr PP < 120 Reviewed Pre-eclampsia signs/symptoms. PEP labs pending. F/U elevated liver enzymes. Increase water intake to 80 oz/day, elevate bilateral lower extremities, compression stockings/socks, monitor sodium intake <1,500 mg/day. Call if sudden pain &/or warmth occurs in lower extremity(s), or if R>L, L>R. Return in about 3 days (around 10/31/2024) for VINAY mathews/Raul, Post PDC appt. Rosalinda Uriostegui APRN 10/28/2024 documented in this encounter Plan of Treatment Upcoming Encounters Date Type Department Care Team (Late st Contact Info) Description 12/01/2024 3:15 PM EDT Visit [facility] OBGYN [address] [address] Sheldon Godoy APRN [address] [facility] [address] [place] [address] 09/22/2025 2:45 PM EDT Office Visit [facility] SLEEP MEDICINE [address] [place] [address] Dave Montaño, MINIATURE TRAIN DRIVER [address] [place] [address] Scheduled Orders Name Type Priority Associated Diagnoses Orde r Schedule Nonstress Test OB Routine care, third trimester 33 weeks gestation of Gestational hypertension, antepartum Expected: 10/28/2024, Expires: 01/28/2026 documented as of this encounter Procedures Procedure Name Priority Date/Time Associated Diagnosis Comments ALP+ALT+AST+CREAT+L D+TBILI+.. Routine 10/28/2024 11:46 AM EDT care, third trimester 33 weeks gestation of Elevated liver enzymes POCT PROTEIN, URINE, QUALITATIVE, DIPSTICK Routine 10/28/2024 10:49 AM EDT care, third trimester 33 weeks gestation of POCT GLUCOSE, URINE, QUALITATIVE, DIPSTICK Routine 10/28/2024 10:49 AM EDT care, third trimester 33 weeks gestation of SCANNED - PROCEDURE 10/28/2024 documented in this encounter Results * (ABNORMAL) AlP+ALT+AST+Creat+LD+TBili+.. (10/28/2024 11:46 AM EDT) Uric Acid 4.8 2.4 - 5.7 mg/dL [facility] Creatinine 0.48(L) 0.57 - 1.00 mg/dL [facility] EGFR Result 135.0 >60.0 mL/min/1.7 3 [facility] Comment: GFR Categories in Chronic Kidney Disease (CKD) [...] does not include race as a factor Total Bilirubin 0.3 0.0 - 1.2 mg/dL [facility] Alkaline Phosphatase 118(H) 39 - 117 U/L [facility] LDH 219(H) 135 - 214 U/L [facility] Comment:Specimen hemolyzed. Results may be affected. AST (SGOT) 62(H) 1 - 32 U/L [facility] ALT (SGPT) 82(H) 1 - 33 U/L [facility] WBC 8.36 3.40 - 10.80 10*3/mm3 [facility] RBC 4.17 3.77 - 5.28 10*6/mm3 [facility] Hemoglobin 11.9(L) 12.0 - 15.9 g/dL [facility] Hematocrit 37.4 34.0 - 46.6 % [facility] MCV 89.7 79.0 - 97.0 fL [facility] MCH 28.5 26.6 - 33.0 pg [facility] MCHC 31.8 31.5 - 35.7 g/dL [facility] RDW 14.1 12.3 - 15.4 % [facility] Platelets 222 140 - 450 10*3/mm3 [facility] Neutrophil Rel % 74.5 42.7 - 76.0 % [facility] Lymphocyte Rel % 16.0(L) 19.6 - 45.3 % [facility] Monocyte Rel % 8.7 5.0 - 12.0 % [facility] Eosinophil Rel % 0.4 0.3 - 6.2 % [facility] Basophil Rel % 0.2 0.0 - 1.5 % [facility] Neutrophils Absolute 6.22 1.70 - 7.00 10*3/mm3 [facility] Lymphocytes Absolute 1.34 0.70 - 3.10 10*3/mm3 [facility] Monocytes Absolute 0.73 0.10 - 0.90 10*3/mm3 [facility] Eosinophils Absolute 0.03 0.00 - 0.40 10*3/mm3 [facility] Basophils Absolute 0.02 0.00 - 0.20 10*3/mm3 [facility] Immature Granulocyte Rel % 0.2 0.0 - 0.5 % [facility] Immature Grans Absolute 0.02 0.00 - 0.05 10*3/mm3 [facility] nRBC 0.0 0.0 - 0.2 /100 WBC [facility] Blood 10/28/2024 11:4 6 AM EDT 10/28/2024 Narrative [facility] ([facility]) - 10/29/2024 3:35 AM EDT Performed at: [address] [place] [id number] Drafter Chief Design: Jeremy Emanuel MD, Phone: [phone] us Rosalinda Uriostegui MINIATURE TRAIN DRIVER LAB BLOOD ORDERABLES Final Result Performing Organization Address City/[facility]/ZIP Co de Phone Number [facility] ([facility]BULAT[facility]) [address] [place] [address], [place] [phone] [facility] [address] [place] [address], [place] [phone] * POC Glucose, Urine, Qualitative, Dipstick (10/28/2024 10:49 AM EDT) Glucose, UA Negative Negative mg/dL [facility] Urine 10/28/2024 10:4 9 AM EDT us Rosalinda Uriostegui MINIATURE TRAIN DRIVER POINT OF CARE TEST ORDERAB LES Final Result [facility]
[address] [place] [id number], * POC Protein, Urine, Qualitative, Dipstick (10/28/2024 10:49 AM EDT) Protein, POC Negative Negative mg/dL [facility] Lot Number 0 [facility] Expiration Date 0 [facility] Urine 10/28/2024 10:4 9 AM EDT us Rosalinda Uriostegui MINIATURE TRAIN DRIVER POINT OF CARE TEST ORDERAB LES Final Result [facility]
[address] [place] [address], * Procedure Scanned (10/28/2024) us Rosalinda Alem Alexanderhoney MINIATURE TRAIN DRIVER PROCEDURE/MINOR SURGICAL O RDERABLES Final Result documented in this encounter Visit Diagnoses Diagnosis care, third trimester- Primary 33 weeks gestation of Gestational hypertension, antepartum Morbid obesity with BMI of 50.0-59.9, adult Antepartum mild preeclampsia Obesity affecting , antepartum, unspecified obesity type Teratogen exposure in current , single or unspecified fetus Mild intermittent asthma without complication Elevated liver enzymes Other nonspecific abnormal serum enzyme levels documented in this encounter Care Teams Dye Range Tender Relationship Specialty Start Date End Date Sue Lieberman APRN [address] [place] [address] [facility] [address] PCP - General Internal Medicine 03/09/24 documented as of this encounter
--- OUTSIDE RECORDS SUMMARY | 2024-10-31 09:23 | XMS_ITS | Encounter Summary ---
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 Name Role Phone Sue Lieberman APRN Primary Care Provider [phone] Reason for Visit * Diagnostic Imaging (Routine) - Closed Specialty Diagnoses / Procedures Referred By Contac t Referred To Contact Radiology Diagnoses Obesity affecting , antepartum, unspecified obesity type 32 weeks gestation of Antepartum mild preeclampsia Procedures [facility] Karan Carter MD [address] [address] Phone: tel: fax: [facility] [address] [place] [address] Phone: tel: Referral ID Status Reason Start Date Expiration Date Visits Re quested Visits Authorized [id number] Closed 10/20/2024 01/19/2026 1 1 Encounter Details Date Type Department Care Team (Late st Contact Info) Description 10/31/2024 9:23 AM EDT - 10/31/2024 11:59 PM EDT Hospital Encounter [facility] PER DI[facility] [address] [place] [address] Karan Carter MD [address] [place] [address] Discharge Disposition: Home or Self Care Social History Tobacco Use Types Packs/Day Years Used Date Smoking Tobacco: Never Smokeless Tobacco: Never Alcohol Use Standard Drinks/Week Comments Not Currently 2 (1 standard drink = 0.6 oz pur e alcohol) [facility] Utilities Answer Date Recorded In the past 12 months has th e electric, gas, oil, or water company [...] and heating? Not hard at all 10/13/2024 [facility] - Occupational Stress Questionnaire Answer Date [...] GED or equivalent No 10/13/2024 Preferred Language [place] Citizen 10/13/2024 PHQ-2 Answer Date Recorded Patient Health Questionnaire-2 Score 0 10/13/2024 Comments Yes Sex and Gender Information Value Date Recorded Sex Assigned at Female 10/01/2024 2:08 PM EDT Legal Sex Female 10:46 AM EDT Gender Identity Not on file Sexual Orientation Not on file documented as of this encounter Medications at Time of Discharge amitriptyline (ELAVIL) 50 MG tablet Take 1 tablet by mouth Every Night. labetalol (NORMODYNE) 200 MG tablet Take 0.5 tablets by mouth Daily. 10/18/2024 montelukast (SINGULAIR) 10 MG tablet Take 1 tablet by mouth Daily. 30 tablet 9 05/05/2024 aspirin 81 MG chewable tablet Chew 1 tablet Daily. cetirizine (zyrTEC) 10 MG tablet Take 1 tablet by mouth Daily. 07/28/202 5 docusate sodium (Colace) 100 MG capsuleIndications:I aminta deficiency anemia during Take 1 capsule by mouth 2 (Two) Times a Day. 60 capsule 2 09/25/2024 5 Ferrous Sulfate (IRON PO) Take by mouth Daily. 5 ondansetron ODT (ZOFRAN-ODT) 4 MG disintegrating tabletIndications:Na usea and vomiting in Take 1 tablet by mouth Every 8 (Eight) Hours As Needed for Nausea or Vomiting. 10 tablet 10/25/2024 5 documented as of this encounter Plan of Treatment Upcoming Encounters Date Type Department Care Team (Late st Contact Info) Description 12/01/2024 3:15 PM EDT Visit [facility] OBGYN [address] [facility] [address] [place] [address] Sheldon Godoy, BISQUE GRADER [address] [facility] [address] [place] [address] 09/22/2025 2:45 PM EDT Office Visit [facility] SLEEP MEDICINE [address] [facility] [address] [place] [address] Dave Montaño, BISQUE GRADER [address] [place] [address] documented as of this encounter Procedures Procedure Name Priority Date/Time Associated Diagnosis Comments [facility] Routine 10/31/2024 9:59 AM EDT Obesity affecting , antepartum, unspecified obesity type 32 weeks gestation of Antepartum mild preeclampsia documented in this encounter Results * [facility] (10/31/2024 9:59 AM EDT) Anatomical Region Laterality Modality Ultrasound 10/31/2024 9:37 AM EDT Narrative 11/01/2024 12:41 PM EDT PAT NAME: PENNY KEBEDE MED REC#: [id number] DA: [id number] PAT GEND: F PAT TYPE: O EXAM JEAN-CLAUDE: [id number] REF PHYS KARAN CARTER Comparison Studies The [...] prior assessment 33 w + 5 d KAREN by prior assessment: 12/14/2024 Ultrasound examination on: 10/31/2024 GA by U/S based upon: AC, BPD, Femur, HC GA by U/S 35 w + 0 d KAREN by U/S: 12/05/2024 Previous dating: based on stated KAREN, selected on 10/11/2024 Agreed KRAEN of previous datin12/14/2024 Assigned: based on stated [...] EFW (oz) 8 oz EFW by: Hadlock (PAH-BV-IH-FL) Extended Chicken Vaccinator 6.7 mm Head / Face / Neck [...] and BPP are normal. Coding ======= Description: 16996-26 Follow Up Ultrasound Description: BPP without NST Investment Accounting Clerk: RT Hermilo Sena , [facility] Physician: Britt Paul MD, FACOG Electronically signed by: Britt Paul MD, FACOG at: 12:41 Procedure Note Britt Paul MD - 11/01/2024 PAT NAME: PENNY KEBEDE MED REC#: [id number] DA: [id number] PAT GEND: F PAT TYPE: O EXAM JEAN-CLAUDE: [id number] REF PHYS KARAN CARTER Comparison Studies The findings of this study are compared to the prior ultrasound studydated 10/11/24 Patient Status Outpatient Indication ======== Preeclampsia. Super obesity BMI 52. Maternal Assessment Fbgqpy587 cm Height (ft)5 ft Height (in)3 in Vpswqw999 kg Weight (lb)292 lb BMI51.74 kg/m Method ======= Transabdominal ultrasound examination. View: Suboptimal view: limited byfetal position ========= Navarro . Number of fetuses: 1 Dating ====== LMP on:02/25/2024 GA by LMP35 w + 4 d KAREN by LMP:12/01/2024 Method of dating:based on stated KAREN GA by prior [id number] w + 5 d KAREN by prior assessment:12/14/2024 Ultrasound examination on:10/31/2024 GA by U/S based upon:AC, BPD, Femur, HC GA by U/S35 w + 0 d KAREN by U/S:12/05/2024 Previous dating:based on stated KAREN, selected on 10/11/2024 Agreed KAREN of previous datin12/14/2024 Assigned:based on stated KAREN, selected on 10/31/2024 Assigned GA33 w + 5 d Assigned KAREN:12/14/2024 [id number] d Biometry Standard BPD87.8 mm 35w 3d 89% Hadlock VYN707.7 mm 35w 4d 85% Mary HC312.6 mm 35w 0d 46% Hadlock AC301.9 mm 34w 1d 66% Hadlock Femur68.8 mm 35w 2d 81% Hadlock Lezyyeh83.4 mm 35w 0d 89% Mary HC / AC1.04 EFW2,493 g 34w 4d 72% Hadlock EFW (lb)5 lb EFW (oz)8 oz EFW by:Hadlock (BHK-NY-QN-FL) Extended Vp6.7 mm Head / Face / Neck Cephalic index0.82 63% Nicolaides Extremities / Bony Struc FL / BPD0.78 FL / HC0.22 FL / AC0.23 Other Structures MEY448 bpm General Evaluation Cardiac activity present. FHR [...] TheAFI and BPP are normal. Coding ======= Description: Follow Up Ultrasound Description: BPP without NST Investment Accounting Clerk: Shilpa Diallo RT R , RDMS Physician: Britt Paul MD, FACOG Electronically signed by: Britt Paul MD, FACOG at: 2:41 us Karan Carter MD IMG US ORDERABLES Final Result documented in this encounter Visit Diagnoses Not on filedocumented in this encounter Care Teams Sewing Machine Maintenance Mechanic Relationship Specialty Start Date End Date Sue Lieberman APRN [address] [place] [id number] PCP - General Internal Medicine 03/09/24 documented as of this encounter
--- OUTSIDE RECORDS SUMMARY | 2024-10-31 09:45 | XMS_ITS | Encounter Summary ---
[facility] [address] [place] [address] Care Team Providers Care Bid Clerk Name Role Phone Sue Lieberman APRN Primary Care Provider [phone] Reason for Referral * Diagnostic Imaging (Routine) - Closed Specialty Diagnoses / Procedures Referred By Contac t Referred To Contact Radiology Diagnoses Elevated liver enzymes Antepartum mild preeclampsia Procedures [facility] Britt Paul MD [address] [facility] [address] [place] [address] Phone: tel: fax: [facility] US PER DIAG CTR [address] [place] [address] Phone: tel: Referral ID Status Reason Start Date Expiration Date Visits Re quested Visits Authorized [id number] Closed 11/01/2024 01/31/2026 1 1 Reason for Visit * Reason Comments Pre-Eclampsia Encounter Details Date Type Department Care Team (Late st Contact Info) Description 10/31/2024 9:45 AM EDT Office Visit [facility] MATERNAL MEDICINE [address] [facility] [address] [place] [id number] Britt Paul MD [address] [facility] [address] [place] [address] Elevated liver enzymes (Primary Dx); Antepartum mild preeclampsia Social History Tobacco Use Types Packs/Day Years Used Date Smoking Tobacco: Never Smokeless Tobacco: Never Alcohol Use Standard Drinks/Week Comments Not Currently 2 (1 standard drink = 0.6 oz pur e alcohol) [facility] Utilities Answer Date Recorded In the [...] and heating? Not hard at all 10/13/2024 [facility] - Occupational [...] GED or equivalent No 10/13/2024 Preferred Language Lithuanian 10/13/2024 PHQ-2 Answer Date Recorded Patient Health Questionnaire-2 Score 0 10/13/2024 Comments Yes Sex and Gender Information Value Date Recorded Sex Assigned at Female 10/01/2024 2:08 PM EDT Legal Sex Female 10:46 AM EDT Gender Identity Not on file Sexual Orientation Not on file documented as of this encounter Last Filed Vital Signs Vital Sign Reading Time Taken Comments Blood Pressure 130/69 10/31/2024 9:34 AM EDT Pulse - - Temperature - - Respiratory Rate - - Oxygen Saturation - - Inhaled Oxygen Concentration - - Weight 132 kg (292 lb) 10/31/2024 9:34 AM EDT Height - - Body Mass Index 51.74 09/16/2024 2:28 PM EDT documented in this encounter Progress Notes * Britt Paul MD - 11/01/2024 12:37 PM EDTAssociated Problem(s): Antepartum mild preeclampsia Blood pressure well controlled Labs stable (has stable transaminitis) Asymptomatic Normal growth with normal UA dopplers, BPP and fluid Recommend continued twice weekly testing in your office with weekly preeclampsia labs Home blood pressure monitoring underway - reviewed call parameters Low threshold for inpatient admission and/or delivery after 34 weeks GA including: worsening blood pressure profile, worsening LFTs, other lab abnormalities, maternal symptoms, nonreassuring testing Otherwise delivery at 36 - 37 weeks GA is appropriate Follow up with MFM in 2 weeks scheduled * Ruth Fritz RN - 10/31/2024 9:45 AM EDT Pt denies complaints. Sees OB today. * Britt Paul MD - 10/31/2024 9:45 AM EDT Maternal/ Medicine Follow Up Note Name: Penny Kebede : 2000 Referring Provider: Karan Carter MD Chief Complaint Pre-Eclampsia Subjective History of Present Illness: Penny Kebede is a 24 y.o. 33w6d who presents today for follow up She was recently diagnosed with preeclampsia She is currently on Labetalol 100 mg BID - which was started prior to diagnosis of preeclampsia forGHTN She has had a mild elevated to her LFTs which has been stable Monitors BP at home - all normal to mild range No BOYCE, vision changes. Does have some mild RUQ pain that is transient KAREN: Estimated Date of Delivery: 12/14/24 ROS: As noted in HPI. Objective Vital Signs BP 130/69 Wt 132 kg (292 lb) LMP 02/25/2024 (Approximate) Estimated body mass index is 51.74 kg/m?? as calculated from the following: Height as of 09/16/24: 160 cm (62.99 ). Weight as of this encounter: 132 kg (292 lb). Ultrasound Impression: See viewpoint Assessment and Plan Penny Kebede is a 24 y.o. 33w6d Diagnoses and all orders for this visit: 1. Elevated liver enzymes (Primary) 2. Antepartum mild preeclampsia Assessment & Plan: Blood pressure well controlled Labs stable (has stable transaminitis) Asymptomatic Normal growth with normal UA dopplers, BPP and fluid Recommend continued twice weekly testing in your office with weekly preeclampsia labs Home blood pressure monitoring underway - reviewed call parameters Low threshold for inpatient admission and/or delivery after 34 weeks GA including: worsening blood pressure profile, worsening LFTs, other lab abnormalities, maternal symptoms, nonreassuring testing Otherwise delivery at 36 - 37 weeks GA is appropriate Follow up with MFM in 2 weeks scheduled Follow Up 2 weeks I spent 30 minutes caring for the patient on the day of service. This included: obtaining or reviewing a separately obtained medical history, reviewing patient records, performing a medically appropriate exam and/or evaluation, counseling or educating the patient/family/caregiver, ordering medications, labs, and/or procedures and documenting such in the medical record. This does not include time spent on review and interpretation of other tests such as ultrasound or the performance of other procedures such as amniocentesis or CVS. Britt Paul MD FACOG Maternal Medicine, [facility] 10/31/2024 documented in this encounter Plan of Treatment Upcoming Encounters Date Type Department Care Team (Late st Contact Info) Description 12/01/2024 3:15 PM EDT Visit [facility] OBGYN [address] [facility] [address] [place] [phone] Sheldon Godoy, PHARMACY SERVICE ASSOCIATE [address] [facility] [address] [place] [phone] 09/22/2025 2:45 PM EDT Office Visit [facility] SLEEP MEDICINE [address] [facility] [address] [place] [address] Dave Montaño, PHARMACY SERVICE ASSOCIATE [address] [place] [address] documented as of this encounter Results * [facility] (11/15/2024 11:32 AM EDT) Anatomical Region Laterality Modality Ultrasound 11/15/2024 11:0 7 AM EDT Narrative 11/15/2024 11:44 AM EDT PAT NAME: PENNY KEBEDE MED REC#: [id number] DA: [id number] PAT GEND: F PAT TYPE: O EXAM JEAN-CLAUDE: [id number] REF PHYS KARAN CARTER Comparison Studies The findings of this study are compared to the prior ultrasound study dated 10/31/24. Patient Status Outpatient Indication ======== Preeclampsia. Super obesity BMI 52. Maternal Assessment Height 160 cm Height (ft) 5 ft Height (in) 3 in Weight 136 kg Weight (lb) 300 lb BMI 53.16 kg/m Method ======= Transabdominal ultrasound examination. View: Limited by patient body habitus ========= Navarro . Number of fetuses: 1 Dating ====== LMP on: 02/25/2024 GA by LMP 37 w + 5 d KAREN by LMP: 12/01/2024 GA by prior assessment 35 w + 6 d KAREN by prior assessment: 12/14/2024 Ultrasound examination on: 11/15/2024 GA by U/S based upon: AC, BPD, Femur, HC GA by U/S 36 w + 4 d KAREN by U/S: 12/09/2024 Method of dating: Restore dating from previous exam Previous dating: based on stated KAREN, selected on 10/31/2024 Agreed KAREN of previous datin12/14/2024 Assigned: based on stated KAREN, selected on 10/31/2024 Assigned GA 35 w + 6 d Assigned KAREN: 12/14/2024 length 280 d Biometry Standard BPD 88.2 mm 35w 5d 51% Hadlock OFD 117.3 mm -/- 98% Mary HC 329.0 mm 37w 3d 58% Hadlock Cerebellum tr 46.9 mm 35w 3d 34% Hill AC 342.8 mm 38w 1d 98% Hadlock Femur 68.4 mm 35w 1d 26% Hadlock Humerus 60.8 mm 35w 1d 51% Mary HC / AC 0.96 EFW 3,113 g 37w 3d 82% Hadlock EFW (lb) 6 lb EFW (oz) 14 oz EFW by: Hadlock (HNO-EB-LU-FL) Extended Cav. septi pel. tr 6.6 mm CM 7.9 mm 61% Nicolaides Head / Face / Neck Cephalic index 0.75 4% Nicolaides Extremities / Bony Struc FL / BPD 0.78 FL / HC 0.21 FL / AC 0.20 Other Structures FHR 141 bpm General Evaluation Cardiac activity present. FHR 141 bpm. movements present. Presentation cephalic. Placenta Placental site: posterior. Amniotic fluid Amount of AF: normal. MVP 4.8 cm. JD 16.0 cm. Q1 3.1 cm, Q2 4.5 cm, Q3 4.8 cm, Q4 3.6 cm. Anatomy Cranium: Normal Cavum septi pellucidi: Normal Cerebellum: Normal Cisterna magna: Normal Lips: suboptimal Profile: suboptimal 4-chamber view: Appears normal RVOT view: Normal LVOT view: Normal Heart / Thorax 3-vessel view: suboptimal 9-emsyje-zfdnpkz view: suboptimal Stomach: Appears normal Kidneys: Appears normal Bladder: Appears normal Gender: female Wants to know gender: yes Doppler Arterial Umbilical A PI 0.66 13% Momo Umbilical A RI 0.50 16% Momo Umbilical A PS 54.51 cm/s 69% Ebbing Umbilical A ED -27.99 cm/s Umbilical A TAmax -41.99 cm/s Umbilical A MD 24.74 cm/s Umbilical A S / D 1.99 18% Momo Umbilical A HR 151 bpm Biophysical Profile 2: breathing movements 2: Gross body movements 2: tone 2: Amniotic fluid volume 12/09 Biophysical profile score Impression Today's exam reveals a SIUP in cephalic presentation with biometry consistent with dates. Limited anatomic survey appears normal. The JD and BPP are normal. Recommendation Follow-up as clinically indicated. Coding ======= Description: 64797-24 Follow Up Ultrasound Description: 61658-49 BPP without NST Ticket Writer: Monae Armstrong RDMS Physician: Joaquín Barrientos MD, FACOG Electronically signed by: Joqauín Barrientos MD, FACOG at: 11:44 Procedure Note Joaquín Barrientos MD - 11/15/2024 PAT NAME: PENNY KEBEDE MED REC#: [id number] DA: [id number] PAT GEND: F PAT TYPE: O EXAM JEAN-CLAUDE: [id number] REF PHYS KARAN CARTER Comparison Studies The findings of this study are compared to the prior ultrasound studydated 10/31/24. Patient Status Outpatient Indication ======== Preeclampsia. Super obesity BMI 52. Maternal Assessment Fvknkf909 cm Height (ft)5 ft Height (in)3 in Voqcuk827 kg Weight (lb)300 lb BMI53.16 kg/m Method ======= Transabdominal ultrasound examination. View: Limited by patient bodyhabitus ========= Navarro . Number of fetuses: 1 Dating ====== LMP on:02/25/2024 GA by LMP37 w + 5 d KAREN by LMP:12/01/2024 GA by prior [id number] w + 6 d KAREN by prior assessment:12/14/2024 Ultrasound examination on:11/15/2024 GA by U/S based upon:AC, BPD, Femur, HC GA by U/S36 w + 4 d KAREN by U/S:12/09/2024 Method of dating:Restore dating from previous exam Previous dating:based on stated KAREN, selected on 10/31/2024 Agreed KAREN of previous datin12/14/2024 Assigned:based on stated KAREN, selected on 10/31/2024 Assigned GA35 w + 6 d Assigned KAREN:12/14/2024 [id number] d Biometry Standard BPD88.2 mm 35w 5d 51% Hadlock DSK735.3 mm -/- 98% Mary HC329.0 mm 37w 3d 58% Hadlock Cerebellum tr46.9 mm 35w 3d 34% Hill AC342.8 mm 38w 1d 98% Hadlock Femur68.4 mm 35w 1d 26% Hadlock Iecujeo21.8 mm 35w 1d 51% Mary HC / AC0.96 EFW3,113 g 37w 3d 82% Hadlock EFW (lb)6 lb EFW (oz)14 oz EFW by:Hadlock (TYX-WV-FT-FL) Extended Cav. septi pel. tr6.6 mm CM7.9 mm 61% Nicolaides Head / Face / Neck Cephalic index0.75 4% Nicolaides Extremities / Bony Struc FL / BPD0.78 FL / HC0.21 FL / AC0.20 Other Structures PLF919 bpm General Evaluation Cardiac activity present. FHR 141 bpm. movements present. Presentation cephalic. Placenta Placental site: posterior. Amniotic fluid Amount of AF: normal. MVP 4.8 cm. JD 16.0 cm. Q1 3.1 cm,Q2 4.5 cm, Q3 4.8 cm, Q4 3.6 cm. Anatomy Cranium:Normal Cavum septi pellucidi:Normal Cerebellum:Normal Cisterna magna:Normal Lips:suboptimal Profile:suboptimal 4-chamber view:Appears normal RVOT view:Normal LVOT view:Normal Heart / Thorax 3-vessel view:suboptimal 9-ltbzvw-suxtiho view:suboptimal Stomach:Appears normal Kidneys:Appears normal Bladder:Appears normal Gender:female Wants to know gender:yes Doppler Arterial Umbilical A PI0.66 13% Momo Umbilical A RI0.50 16% Momo Umbilical A PS54.51 cm/s 69% Ebbing Umbilical A ED-27.99 cm/s Umbilical A TAmax-41.99 cm/s Umbilical A MD24.74 cm/s Umbilical A S / D1.99 18% Momo Umbilical A HR151 bpm Biophysical Profile 2: breathing movements 2: Gross body movements 2: tone 2: Amniotic fluid volume 12/09 Biophysical profile score Impression Today's exam reveals a SIUP in cephalic presentation with biometryconsistent with dates. Limited anatomic survey appears normal. TheAFI and BPP are normal. Recommendation Follow-up as clinically indicated. Coding ======= Description:32182-72 Follow Up Ultrasound Description:56334-52 BPP without NST Ticket Writer: Monae Armstrong RDMS Physician: Joaquín Barrientos MD, FACOG Electronically signed by: Joaquín Barrientos MD, FACOG at: 11:44 us Britt Paul MD IMG US ORDERABLES Final Result documented in this encounter Visit Diagnoses Diagnosis Elevated liver enzymes- Primary Other nonspecific abnormal serum enzyme levels Antepartum mild preeclampsia Elevated liver enzymes Other nonspecific abnormal serum enzyme levels Antepartum mild preeclampsia documented in this encounter Care Teams Bid Clerk Relationship Specialty Start Date End Date Sue Lieberman APRN [address] [place] [address] [place] [address] PCP - General Internal Medicine 03/09/24 documented as of this encounter
--- OUTSIDE RECORDS SUMMARY | 2024-10-31 10:30 | XMS_ITS | Encounter Summary ---
Author Organization [facility] ystem Address [address] [place] [address] Care Team Providers Care Entry Level Buyer Name Role Phone Cherie Liebermannie ALEE Primary Care Provider [phone] Reason for Visit * Reason Comments Routine Visit Encounter Details Date Type Department Care Team (Late st Contact Info) Description 10/31/2024 10:30 AM EDT Routine [facility] OBGYN [address] [phone] Rosalinda Uriostegui FLY WORKER [address] [place] [address] GA: 33w5d Social History Tobacco Use Types Packs/Day Years Used Date Smoking Tobacco: Never Smokeless Tobacco: Never Alcohol Use Standard Drinks/Week Comments Not Currently 2 (1 standard drink = 0.6 oz pur e alcohol) [facility] Utilities Answer Date Recorded In the past 12 months has [employer] electric, gas, oil, or water company threatened [...] and heating? Not hard at all 10/13/2024 [facility] - Occupational Stress Questionnaire Answer Date [...] GED or equivalent No 10/13/2024 Preferred Language Belgian 10/13/2024 PHQ-2 Answer Date Recorded Patient Health Questionnaire-2 Score 0 10/13/2024 Comments Yes Sex and Gender Information Value Date Recorded Sex Assigned at Female 10/01/2024 2:08 PM EDT Legal Sex Female 10:46 AM EDT Gender Identity Not on file Sexual Orientation Not on file documented as of this encounter Last Filed Vital Signs Vital Sign Reading Time Taken Comments Blood Pressure 116/80 10/31/2024 10:46 AM EDT Pulse - - Temperature - - Respiratory Rate - - Oxygen Saturation - - Inhaled Oxygen Concentration - - Weight 132 kg (291 lb) 10/31/2024 10:46 AM EDT Height - - Body Mass Index 51.56 09/16/2024 2:28 PM EDT documented in this encounter Progress Notes * Rosalinda Uriostegui APRN - 10/31/2024 10:30 AM EDT Images from the original note were not included. OB FOLLOW UP CC- Here for care of Penyn Kebede is a 24 y.o. 33w5d patient being seen today for her obstetrical follow up visit. Patient reports occasional back pain and pressure, denies dysuria or constipation. Her care is complicated by (and status) : GHTN. BP at home 110-120/60-70. Patient Active Problem List Diagnosis Asthma Obesity affecting , antepartum Morbid obesity with BMI of 50.0-59.9, adult Teratogen exposure in current Gestational hypertension, antepartum Antepartum mild preeclampsia Elevated liver enzymes Ultrasound Today: Yes. Done at [facility]. Yes, see report. I have reviewed the preliminary US report. Final report pending physician review. Rosalinda Uriostegui APRN Non Stress Test: No. ROS - Patient Denies: Loss of Fluid, [...] and historical information as entered above. Rosalinda Uriostegui APRN BP 116/80 Wt 132 kg (291 lb) LMP 02/25/2024 (Approximate) BMI 51.56 kg/m?? EXAM: Vitals BP: 116/80 Weight: 132 kg (291 lb) Heart Rate: 125 Urine Glucose Read-only: Negative Urine Protein Read-only: [...] 200 MG tablet Other Relevant Orders AlP+ALT+AST+Creat+LD+TBili+.. Morbid obesity with BMI of 50.0-59.9, adult Obesity affecting , antepartum Relevant Orders AlP+ALT+AST+Creat+LD+TBili+.. Teratogen exposure in current Other Visit Diagnoses care in third trimester, unspecified - Primary Relevant Orders POC Urinalysis Dipstick (Completed) AlP+ALT+AST+Creat+LD+TBili+.. at 33w5d status reassuring. PDC report reviewed. Activity and Exercise discussed. movement/PTL or Labor precautions Patient is on vitamins Discussed/encouraged Flu vaccination Discussed/encouraged TDAP vaccination after 28 weeks Reviewed Pre-eclampsia signs/symptoms. PEP labs pending. GBS next visit Return in about 3 days (around 11/03/2024) for VINAY mathews/Raul NST. Rosalinda Uriostegui APRN 10/31/2024 documented in this encounter Plan of Treatment Upcoming Encounters Date Type Department Care Team (Late st Contact Info) Description 12/01/2024 3:15 PM EDT Visit [facility] OBGYN [address] [facility] [address] [place] [address] Sheldon Godoy, FLY WORKER [address] [facility] [address] [place], [place] [id number] 09/22/2025 2:45 PM EDT Office Visit [facility] SLEEP MEDICINE [address] [facility] [address] [place] [address] Dave Montaño, FLY WORKER [address] [place] [address] documented as of this encounter Procedures Procedure Name Priority Date/Time Associated Diagnosis Comments ALP+ALT+AST+CREAT+L D+TBILI+.. Routine 10/31/2024 11:09 AM EDT care in third trimester, unspecified Elevated liver enzymes Gestational hypertension, antepartum 33 weeks gestation of POCT URINALYSIS DIPSTICK, MANUAL Routine 10/31/2024 10:48 AM EDT care in third trimester, unspecified documented in this encounter Results * (ABNORMAL) AlP+ALT+AST+Creat+LD+TBili+.. (10/31/2024 11:09 AM EDT) Uric Acid 4.3 2.4 - 5.7 mg/dL [facility] Creatinine 0.61 0.57 - 1.00 mg/dL [facility] EGFR Result 127.4 >60.0 mL/min/1.7 3 [facility] Comment: GFR [...] - 1.2 mg/dL [facility] Alkaline Phosphatase 135(H) 39 - 117 U/L [facility] LDH 218(H) 135 - 214 U/L [facility] AST (SGOT) 50(H) 1 - 32 U/L [facility] ALT (SGPT) 88(H) 1 - 33 U/L [facility] WBC 9.20 3.40 - 10.80 10*3/mm3 [facility] RBC 4.31 3.77 - 5.28 10*6/mm3 [facility] Hemoglobin 12.5 12.0 - 15.9 g/dL [facility] Hematocrit 37.8 34.0 - 46.6 % [facility] MCV 87.7 79.0 - 97.0 fL [facility] MCH 29.0 26.6 - 33.0 pg [facility] MCHC 33.1 31.5 - 35.7 g/dL [facility] RDW 13.3 12.3 - 15.4 % [facility] Platelets 233 140 - 450 10*3/mm3 [facility] Neutrophil Rel % 72.9 42.7 - 76.0 % [facility] Lymphocyte Rel % 17.8(L) 19.6 - 45.3 % [facility] Monocyte Rel % 8.4 5.0 - 12.0 % [facility] Eosinophil Rel % 0.3 0.3 - 6.2 % [facility] Basophil Rel % 0.3 0.0 - 1.5 % [facility] Neutrophils Absolute 6.70 1.70 - 7.00 10*3/mm3 [facility] Lymphocytes Absolute 1.64 0.70 - 3.10 10*3/mm3 [facility] Monocytes Absolute 0.77 0.10 - 0.90 10*3/mm3 [facility] Eosinophils Absolute 0.03 0.00 - 0.40 10*3/mm3 [facility] Basophils Absolute 0.03 0.00 - 0.20 10*3/mm3 [facility] Immature Granulocyte Rel % 0.3 0.0 - 0.5 % [facility] Immature Grans Absolute 0.03 0.00 - 0.05 10*3/mm3 [facility] nRBC 0.0 0.0 - 0.2 /100 WBC [facility] Blood 10/31/2024 11:0 9 AM EDT 10/31/2024 Narrative [facility] - 11/01/2024 3:35 AM EDT Performed at: [address] [place] [id number] [employer] Concrete Batcher: Jeremy Emanuel MD, Phone: [phone] Rosalinda Uriostegui FLY WORKER LAB BLOOD ORDERABLES Final Result Performing Organization Address [facility] Co de Phone Number [facility] [address] [place] [address], [place] [phone] [facility] [address] [place] [address], [place] [phone] * POC Urinalysis Dipstick (10/31/2024 10:48 AM EDT) [facility] Glucose, UA Negative Negative mg/dL [facility] Protein, POC Negative Negative mg/dL [facility] Urine 10/31/2024 10:4 8 AM EDT Rosalinda Uriostegui FLY WORKER POINT OF CARE TEST ORDERAB LES Final Result Performing Organization Address City/[facility]/ZIP Co de Phone Number [facility]
[address] [place] [address], [place] [phone] documented in this encounter Visit Diagnoses Diagnosis care in third trimester, unspecified - Primary Elevated liver enzymes Other nonspecific abnormal serum enzyme levels Gestational hypertension, antepartum 33 weeks gestation of Antepartum mild preeclampsia Morbid obesity with BMI of 50.0-59.9, adult Teratogen exposure in current , single or unspecified fetus Mild intermittent asthma without complication Obesity affecting , antepartum, unspecified obesity type documented in this encounter Care Teams Entry Level Buyer Relationship Specialty Start Date End Date Sue Lieberman APRN [address] [place] [address] PCP - General Internal Medicine 03/09/24 documented as of this encounter
--- OUTSIDE RECORDS SUMMARY | 2024-11-03 14:00 | XMS_ITS | Encounter Summary ---
Author Organization [facility] ystem Address [address] [place] [address] Care Team Providers Care Rubber Cutter And Shape Carver Name Role Phone Sue Lieberman FORENSIC SCIENCE TECHNICIAN Primary Care Provider [phone] Reason for Visit * Reason Comments Routine Visit 34w1d Encounter Details Date Type Department Care Team (Late st Contact Info) Description 11/03/2024 2:00 PM EDT Routine [facility] OBGYN [address] [address] Bhavya Carter MD [address] [place] [address] GA: 34w1d Social History Tobacco Use Types Packs/Day Years Used Date Smoking Tobacco: Never Smokeless Tobacco: Never Alcohol Use Standard Drinks/Week Comments Not Currently 2 (1 standard drink = 0.6 oz pur e alcohol) [facility] Utilities Answer Date Recorded In the past 12 months has [employer] electric, gas, oil, or water company threatened [...] and heating? Not hard at all 10/13/2024 [facility] - Occupational Stress Questionnaire Answer Date [...] GED or equivalent No 10/13/2024 Preferred Language Montserratian 10/13/2024 PHQ-2 Answer Date Recorded Patient Health Questionnaire-2 Score 0 10/13/2024 Comments Yes Sex and Gender Information Value Date Recorded Sex Assigned at Female 10/01/2024 2:08 PM EDT Legal Sex Female 10:46 AM EDT Gender Identity Not on file Sexual Orientation Not on file documented as of this encounter Last Filed Vital Signs Vital Sign Reading Time Taken Comments Blood Pressure 120/76 11/03/2024 2:33 PM EDT Pulse - - Temperature - - Respiratory Rate - - Oxygen Saturation - - Inhaled Oxygen Concentration - - Weight 134 kg (295 lb 3.2 oz) 11/03/2024 2:33 PM EDT Height - - Body Mass Index 52.31 09/16/2024 2:28 PM EDT documented in this encounter Progress Notes * Bhavya Carter MD - 11/03/2024 2:00 PM EDT Images from the original note were not included. OB FOLLOW UP CC- Here for care of Penny Kebede is a 24 y.o. 34w1d patient being seen today for her obstetrical follow up visit. Patient reports intermittent RUQ pain that is not associated with baby movement. She denies BOYCE with vision changes or sudden onset of swelling. Her care is complicated by (and status) : see below. and GHTN. Her average BP has been 110-130/70-88. Patient Active Problem List Diagnosis Asthma Obesity affecting , antepartum Morbid obesity with BMI of 50.0-59.9, adult Teratogen exposure in current Antepartum mild preeclampsia Elevated liver enzymes Ultrasound Today: No Non Stress Test: Yes minutes non-stress test: NST: Reactive indication: Hypertension category: Category I attestation: ROS - Patient Denies: Loss of Fluid, [...] as entered above. Bhavya Carter MD BP 120/76 Wt 134 kg (295 lb 3.2 oz) LMP 02/25/2024 (Approximate) BMI 52.31 kg/m?? EXAM: Vitals BP: 120/76 Weight: 134 kg (295 lb 3.2 oz) Heart Rate: NST NST NOTE Indiction : Preeclampsia FHR: Reactive, Cat 1, No decels Contractions: Irregular Time Monitored: > 20 minutes Urine Glucose Read-only: Negative Urine Protein Read-only: Negative Assessment and Plan Problem List Items Addressed This Visit Gravid and Obesity affecting , antepartum Antepartum mild preeclampsia Relevant Medications labetalol (NORMODYNE) 200 MG tablet Other Relevant Orders AlP+ALT+AST+Creat+LD+TBili+.. Other Visit Diagnoses care, antepartum, unspecified - Primary Relevant Orders POC Urinalysis Dipstick (Completed) at 34w1d status reassuring. Activity and Exercise discussed. movement/PTL or Labor precautions Continue biweekly NST. LFT are stable. Deliver at 37 weeks. Return in about 4 days (around 11/07/2024). Bhavya Carter MD 11/03/2024 documented in this encounter Plan of Treatment Upcoming Encounters Date Type Department Care Team (Late st Contact Info) Description 12/01/2024 3:15 PM EDT Visit [facility] OBGYN [address] [facility] [address] [place] [phone] Sheldon Godoy, FORENSIC SCIENCE TECHNICIAN [address] [facility] [address] [place] [address] 09/22/2025 2:45 PM EDT Office Visit [facility]INE [address] [facility] [address] [place] [address] SabraDave, FORENSIC SCIENCE TECHNICIAN [address] [place] [address] documented as of this encounter Procedures Procedure Name Priority Date/Time Associated Diagnosis Comments ALP+ALT+AST+CREAT+L D+TBILI+.. Routine 11/03/2024 3:38 PM EDT Antepartum mild preeclampsia POCT URINALYSIS DIPSTICK, MANUAL Routine 11/03/2024 3:05 PM EDT care, antepartum, unspecified SCANNED - PROCEDURE 11/03/2024 documented in this encounter Results * (ABNORMAL) AlP+ALT+AST+Creat+LD+TBili+.. (11/03/2024 3:38 PM EDT) Uric Acid 4.7 2.4 - 5.7 mg/dL [facility] Creatinine 0.60 0.57 - 1.00 mg/dL [facility] EGFR Result 127.9 >60.0 mL/min/1.7 3 [facility] Comment: GFR [...] include race as a factor Total Bilirubin <0.2 0.0 - 1.2 mg/dL [facility] Alkaline Phosphatase 124(H) 39 - 117 U/L [facility] LDH 215(H) 135 - 214 U/L [facility] AST (SGOT) 52(H) 1 - 32 U/L [facility] ALT (SGPT) 81(H) 1 - 33 U/L [facility] WBC 9.53 3.40 - 10.80 10*3/mm3 [facility] RBC 4.19 3.77 - 5.28 10*6/mm3 [facility] Hemoglobin 12.0 12.0 - 15.9 g/dL [facility] Hematocrit 37.5 34.0 - 46.6 % [facility] MCV 89.5 79.0 - 97.0 fL [facility] MCH 28.6 26.6 - 33.0 pg [facility] MCHC 32.0 31.5 - 35.7 g/dL [facility] RDW 13.9 12.3 - 15.4 % [facility] Platelets 235 140 - 450 10*3/mm3 [facility] Neutrophil Rel % 69.5 42.7 - 76.0 % [facility] Lymphocyte Rel % 18.5(L) 19.6 - 45.3 % [facility] Monocyte Rel % 10.8 5.0 - 12.0 % [facility] Eosinophil Rel % 0.5 0.3 - 6.2 % [facility] Basophil Rel % 0.3 0.0 - 1.5 % [facility] Neutrophils Absolute 6.62 1.70 - 7.00 10*3/mm3 [facility] Lymphocytes Absolute 1.76 0.70 - 3.10 10*3/mm3 [facility] Monocytes Absolute 1.03(H) 0.10 - 0.90 10*3/mm3 [facility] Eosinophils Absolute 0.05 0.00 - 0.40 10*3/mm3 [facility] Basophils Absolute 0.03 0.00 - 0.20 10*3/mm3 [facility] Immature Granulocyte Rel % 0.4 0.0 - 0.5 % [facility] Immature Grans Absolute 0.04 0.00 - 0.05 10*3/mm3 [facility] nRBC 0.0 0.0 - 0.2 /100 WBC [facility] Blood 11/03/2024 3:38 PM EDT 11/03/2024 Narrative [facility] - 11/04/2024 3:35 AM EDT Performed at: [address] - [address] [id number] Rail Car Unloader: Jeremy Emanuel MD, Phone: [phone] us Bhavya Carter MD LAB BLOOD ORDERABLES Final Resu lt Performing Organization Address City/[facility]/ZIP Co de Phone Number [facility] [address] [place] [address], [place] [phone] [facility] [address] [place] [address], [place] [phone] * POC Urinalysis Dipstick (11/03/2024 3:05 PM EDT) Glucose, UA Negative Negative mg/dL [facility] Protein, POC Negative Negative mg/dL [facility] Urine 11/03/2024 3:05 PM EDT us Bhavya Carter MD POINT OF CARE TEST ORDERABLES F inal Result Performing Organization Address City/[facility]/ZIP Co de Phone Number [facility]
[address] [place] [address], [place] [phone] * Procedure Scanned (11/03/2024) us Bhavya Carter MD PROCEDURE/MINOR SURGICAL ORDERA BLES Final Result documented in this encounter Visit Diagnoses Diagnosis care, antepartum, unspecified - Primary Other obesity affecting , antepartum Antepartum mild preeclampsia documented in this encounter Care Teams Rubber Cutter And Shape Carver Relationship Specialty Start Date End Date Sue Lieberman APRN [address] [place] [address] [address] [place] [address] PCP - General Internal Medicine 03/09/24 documented as of this encounter
--- OUTSIDE RECORDS SUMMARY | 2024-11-08 08:00 | XMS_ITS | Encounter Summary ---
Author Organization [facility] ystem Address [address] [place] [address] Care Team Providers Care Glaucoma Specialist Name Role Phone Sue Lieberman APRN Primary Care Provider [phone] Reason for Visit * Reason Comments Routine Visit Non-stress Test Encounter Details Date Type Department Care Team (Late st Contact Info) Description 11/08/2024 8:00 AM EDT Routine [facility] OBGYN [address] [address] Bhavya Carter MD [address] [place] [address] GA: 34w6d Social History Tobacco Use Types Packs/Day Years Used Date Smoking Tobacco: Never Smokeless Tobacco: Never Alcohol Use Standard Drinks/Week Comments Not Currently 2 (1 standard drink = 0.6 oz pur e alcohol) [facility] Utilities Answer Date Recorded In the past 12 months has [employer], gas, oil, or water [employer] threatened to shut off services in your [...] and heating? Not hard at all 10/13/2024 [facility] - Occupational Stress Questionnaire Answer [...] GED or equivalent No 10/13/2024 Preferred Language Hungarian 10/13/2024 PHQ-2 Answer Date Recorded Patient Health Questionnaire-2 Score 0 10/13/2024 Comments Yes Sex and Gender Information Value Date Recorded Sex Assigned at Female 10/01/2024 2:08 PM EDT Legal Sex Female 10:46 AM EDT Gender Identity Not on file Sexual Orientation Not on file documented as of this encounter Last Filed Vital Signs Vital Sign Reading Time Taken Comments Blood Pressure 130/76 11/08/2024 7:58 AM EDT Pulse - - Temperature - - Respiratory Rate - - Oxygen Saturation - - Inhaled Oxygen Concentration - - Weight 134 kg (295 lb) 11/08/2024 7:58 AM EDT Height - - Body Mass Index 52.27 09/16/2024 2:28 PM EDT documented in this encounter Progress Notes * Bhavya Carter MD - 11/08/2024 8:00 AM EDT Images from the original note were not included. OB FOLLOW UP CC- Here for care of Penny Kebede is a 24 y.o. 34w6d patient being seen today for her obstetrical follow up visit. Patient reports swelling in BLE, intermittent RUQ pain, and worsening vaginal pressure. Patient states that baby is very low. Patient states that her BP at home has been averaging 110-120s/60-75. Her care is complicated by (and status) : see below. Patient Active Problem List Diagnosis Asthma Obesity affecting , antepartum Morbid obesity with BMI of 50.0-59.9, adult Teratogen exposure in current Antepartum mild preeclampsia Elevated liver enzymes Ultrasound Today: No. Patient scheduled to see [facility] on 11/15/2024. Non Stress Test: Yes, 20 minutes Non-stress test: NST: Reactive Indication: Hypertension ROS - Patient Denies: Loss of Fluid, Vaginal Spotting, Vision Changes, Headaches, Nausea , Vomiting , Contractions, and skin itching Movement : normal Other than what is documented in the HPI, all other systems reviewed and are negative. The additional following portions of the patient's history were reviewed and updated as appropriate: allergies, current medications, and problem list. I have reviewed and agree with the HPI, ROS, and historical information as entered above. Bhavya Carter MD BP 130/76 Wt 134 kg (295 lb) LMP 02/25/2024 (Approximate) BMI 52.27 kg/m?? EXAM: Vitals BP: 130/76 Weight: 134 kg (295 lb) Heart Rate: NST NST NOTE Indiction : FHR: Reactive, Cat 1, No decels Contractions: Irregular Time Monitored: > 20 minutes Urine Glucose Read-only: Negative Urine Protein Read-only: Negative Assessment and Plan Problem List Items Addressed This Visit Endocrine and Metabolic Morbid obesity with BMI of 50.0-59.9, adult Gastrointestinal Abdominal Elevated liver enzymes Relevant Orders POC Urinalysis Dipstick (Completed) AlP+ALT+AST+Creat+LD+TBili+.. Gravid and Obesity affecting , antepartum Relevant Orders POC Urinalysis Dipstick (Completed) AlP+ALT+AST+Creat+LD+TBili+.. Teratogen exposure in current Antepartum mild preeclampsia Relevant Medications labetalol (NORMODYNE) 200 MG tablet Other Relevant Orders POC Urinalysis Dipstick (Completed) AlP+ALT+AST+Creat+LD+TBili+.. Other Visit Diagnoses care, antepartum, unspecified - Primary Relevant Orders POC Urinalysis Dipstick (Completed) AlP+ALT+AST+Creat+LD+TBili+.. at 34w6d Labs today. Induction at 37 weeks scheduled. status reassuring. Activity and Exercise discussed. movement/PTL or Labor precautions Return in about 4 days (around 11/12/2024). Bhavya Carter MD 11/08/2024 documented in this encounter Plan of Treatment Upcoming Encounters Date Type Department Care Team (Late st Contact Info) Description 12/01/2024 3:15 PM EDT Visit [facility] OBGYN [address] [place] [address] Sheldon Godoy, MATERIAL HANDLER 1ST SHIFT [address] [facility] [address] [place] [address] 09/22/2025 2:45 PM EDT Office Visit [facility] SLEEP MEDICINE [address] [facility] [address] [place] [address] SabraDave, MATERIAL HANDLER 1ST SHIFT [address] [place], [place] [id number] documented as of this encounter Procedures Procedure Name Priority Date/Time Associated Diagnosis Comments ALP+ALT+AST+CREAT+LD+ TBILI+.. Routine 11/08/2024 8:56 AM EDT care, antepartum, unspecified Other obesity affecting , antepartum Elevated liver enzymes Antepartum mild preeclampsia CONV SPECIMEN STATUS REPORT* Routine 11/08/2024 8:56 AM EDT CBC AND DIFFERENTIAL Routine 11/08/2024 8:56 AM EDT POCT URINALYSIS DIPSTICK, MANUAL Routine 11/08/2024 8:10 AM EDT care, antepartum, unspecified Other obesity affecting , antepartum Elevated liver enzymes Antepartum mild preeclampsia SCANNED - PROCEDURE 11/08/2024 documented in this encounter Results * Specimen Status Report (11/08/2024 8:56 AM EDT) Specimen Status Comment [facility] Comment: Written Authorization Written Authorization Written Authorization Received. Authorization received from TEST ORDERED ON ORIGINAL REQUISITION 11-09-2024 Logged by Jocelyne Wallace 11/08/2024 8:56 AM EDT 11/08/2024 Narrative [facility] - 11/09/2024 2:36 PM EDT Performed at: [address] [place] [address], [place], [place] [id number] Internal Consultant: Jeremy Emanuel MD, Phone: [phone] Bhavya Carter MD LAB BLOOD ORDERABLES Final Resu lt [facility]) [address] [place] [address], [facility] [address] [place] [address], * (ABNORMAL) CBC & Differential (11/08/2024 8:56 AM EDT) WBC 8.24 3.40 - 10.80 10*3/mm3 [facility] RBC 4.18 3.77 - 5.28 10*6/mm3 [facility] Hemoglobin 12.2 12.0 - 15.9 g/dL [facility] Hematocrit 38.6 34.0 - 46.6 % [facility] MCV 92.3 79.0 - 97.0 fL [facility] MCH 29.2 26.6 - 33.0 pg [facility] MCHC 31.6 31.5 - 35.7 g/dL [facility] RDW 14.6 12.3 - 15.4 % [facility] Platelets 224 140 - 450 10*3/mm3 [facility] Neutrophil Rel % 69.0 42.7 - 76.0 % [facility] Lymphocyte Rel % 18.3(L) 19.6 - 45.3 % [facility] Monocyte Rel % 11.7 5.0 - 12.0 % [facility] Eosinophil Rel % 0.4 0.3 - 6.2 % [facility] Basophil Rel % 0.4 0.0 - 1.5 % [facility] Neutrophils Absolute 5.69 1.70 - 7.00 10*3/mm3 [facility] Lymphocytes Absolute 1.51 0.70 - 3.10 10*3/mm3 [facility] Monocytes Absolute 0.96(H) 0.10 - 0.90 10*3/mm3 [facility] Eosinophils Absolute 0.03 0.00 - 0.40 10*3/mm3 [facility] Basophils Absolute 0.03 0.00 - 0.20 10*3/mm3 [facility] Immature Granulocyte Rel % 0.2 0.0 - 0.5 % [facility] Immature Grans Absolute 0.02 0.00 - 0.05 10*3/mm3 [facility] nRBC 0.0 0.0 - 0.2 /100 WBC [facility] 11/08/2024 8:56 AM EDT 11/08/2024 Narrative [facility] - 11/09/2024 2:36 PM EDT Performed at: [address] [place] [id number] Internal Consultant: Jeremy Emanuel MD, Phone: [phone] Bhavya Carter MD LAB BLOOD ORDERABLES Final Resu lt [facility] [address] [place] [address], [facility] [address] [place] [address], * (ABNORMAL) AlP+ALT+AST+Creat+LD+TBili+.. (11/08/2024 8:56 AM EDT) [facility] Uric Acid 5.1 2.4 - 5.7 mg/dL [facility] Creatinine 0.57 0.57 - 1.00 mg/dL [facility] EGFR Result 129.5 >60.0 mL/min/1.7 3 [facility] Comment: GFR [...] - 1.2 mg/dL [facility] Alkaline Phosphatase 129(H) 39 - 117 U/L [facility] LDH 335(H) 135 - 214 U/L [facility] Comment:Specimen hemolyzed. Results may be affected. AST (SGOT) 61(H) 1 - 32 U/L [facility] Comment:Specimen hemolyzed. Result may be falsely elevated. ALT (SGPT) 82(H) 1 - 33 U/L [facility] WBC CANCELED [facility] Comment: Test not performed Result canceled by the ancillary. RBC CANCELED [facility] Comment: Test not performed Result canceled by the ancillary. Hemoglobin CANCELED [facility] Comment: Test not performed Result canceled by the ancillary. Hematocrit CANCELED [facility] Comment: Test not performed Result canceled by the ancillary. Platelets CANCELED [facility] Comment: Test not performed Result canceled by the ancillary. Neutrophil Rel % CANCELED [facility] Comment: Test not performed Result canceled by the ancillary. Lymphocyte Rel % CANCELED [facility] Comment: Test not performed Result canceled by the ancillary. Monocyte Rel % CANCELED [facility] Comment: Test not performed Result canceled by the ancillary. Eosinophil Rel % CANCELED [facility] Comment: Test not performed Result canceled by the ancillary. Lymphocytes Absolute CANCELED [facility] Comment: Test not performed Result canceled by the ancillary. Eosinophils Absolute CANCELED [facility] Comment: Test not performed Result canceled by the ancillary. Basophils Absolute CANCELED [facility] Comment: Test not performed Result canceled by the ancillary. Blood 11/08/2024 8:56 AM EDT 11/08/2024 Narrative [facility] - 11/09/2024 2:36 PM EDT Performed at: [address] [id number] Internal Consultant: Jeremy Emanuel MD, Phone: [phone] Performed at: [address] [id number] Internal Consultant: Miki Jackson MD, Phone: [phone] us Bhavya Carter MD LAB BLOOD ORDERABLES Edited Res ult - Final [facility] [address] [place] [address], [place] [phone] [facility] [address] [place] [address], [place] [phone] * POC Urinalysis Dipstick (11/08/2024 8:10 AM EDT) Glucose, UA Negative Negative mg/dL [facility] Protein, POC Negative Negative mg/dL [facility] Urine 11/08/2024 8:10 AM EDT us Bhavya Carter MD POINT OF CARE TEST ORDERABLES F inal Result [facility]
[address] [place] [id number], * Procedure Scanned (11/08/2024) us Bhavya Carter MD PROCEDURE/MINOR SURGICAL ORDERA BLES Final Result documented in this encounter Visit Diagnoses Diagnosis care, antepartum, unspecified - Primary Other obesity affecting , antepartum Elevated liver enzymes Other nonspecific abnormal serum enzyme levels Antepartum mild preeclampsia 34 weeks gestation of Teratogen exposure in current , single or unspecified fetus Morbid obesity with BMI of 50.0-59.9, adult documented in this encounter Care Teams Glaucoma Specialist Relationship Specialty Start Date End Date Sue Lieberman APRN [address] [place] [address] [address] [place] [address] PCP - General Internal Medicine 03/09/24 documented as of this encounter
--- OUTSIDE RECORDS SUMMARY | 2024-11-11 08:45 | XMS_ITS | Encounter Summary ---
Author Organization [facility] ystem Address [address] [place] [address] Care Team Providers Care Construction Carpenters Helper Name Role Phone Sue Lieberman TECHNICAL SOLUTION ARCHITECT Primary Care Provider [phone] Reason for Visit * Reason Comments Routine Visit Non-stress Test Encounter Details Date Type Department Care Team (Late st Contact Info) Description 11/11/2024 8:45 AM EDT Routine [facility] OBGYN [address] [place] [address] Dayanna Marvin, TECHNICAL SOLUTION ARCHITECT [address] [place] [address] GA: 35w2d Social History Tobacco Use Types Packs/Day Years Used Date Smoking Tobacco: Never Smokeless Tobacco: Never Alcohol Use Standard Drinks/Week Comments Not Currently 2 (1 standard drink = 0.6 oz pur e alcohol) [facility] Utilities Answer Date Recorded In the past 12 months has [employer], gas, oil, or water [employer] threatened to shut off services in your [...] and heating? Not hard at all 10/13/2024 [facility] [place] [facility] - Occupational Stress [...] GED or equivalent No 10/13/2024 Preferred Language Divehi 10/13/2024 PHQ-2 Answer Date Recorded Patient Health Questionnaire-2 Score 0 10/13/2024 Comments Yes Sex and Gender Information Value Date Recorded Sex Assigned at Female 10/01/2024 2:08 PM EDT Legal Sex Female 10:46 AM EDT Gender Identity Not on file Sexual Orientation Not on file documented as of this encounter Last Filed Vital Signs Vital Sign Reading Time Taken Comments Blood Pressure 122/70 11/11/2024 8:46 AM EDT Pulse - - Temperature - - Respiratory Rate - - Oxygen Saturation - - Inhaled Oxygen Concentration - - Weight 135 kg (298 lb) 11/11/2024 8:46 AM EDT Height - - Body Mass Index 52.8 09/16/2024 2:28 PM EDT documented in this encounter Progress Notes * Dayanna Marvin, TECHNICAL SOLUTION ARCHITECT - 11/11/2024 8:45 AM EDT Images from the original note were not included. OB FOLLOW UP CC- Here for care of NST for preeclampsia Penny Kebede is a 24 y.o. 35w2d patient being seen today for her obstetrical follow up visit. Patient reports swelling in her hands, face and feet and irregular gildardo palomo/contractions. She denies LOF, vaginal spotting, headaches, vision changes. She reports adequate movements, >10 movements in 10 hours. Home blood pressures have remained <120s/80s. Her care is complicated by (and status) : Patient Active Problem List Diagnosis Asthma Obesity affecting , antepartum Morbid obesity with BMI of 50.0-59.9, adult Teratogen exposure in current Antepartum mild preeclampsia Elevated liver enzymes Ultrasound Today: No Non Stress Test: Yes minutes >20 non-stress test: NST: Reactive indication: Hypertension ROS - Patient Denies: Loss of Fluid, Vaginal Spotting, Vision Changes, Headaches, Nausea , Vomiting , Epigastric pain, and skin itching Movement : [...] and historical information as entered above. Dayanna Laguna APRN BP 122/70 Wt 135 kg (298 lb) LMP 02/25/2024 (Approximate) BMI 52.80 kg/m?? EXAM: Vitals BP: 122/70 Weight: 135 kg (298 lb) Heart Rate: NST Assessment and Plan Problem List Items Addressed This Visit Gravid and Antepartum mild preeclampsia Relevant Medications labetalol (NORMODYNE) 200 MG tablet Other Relevant Orders AlP+ALT+AST+Creat+LD+TBili+.. Other Visit Diagnoses care, first in third trimester - Primary Relevant Orders AlP+ALT+AST+Creat+LD+TBili+.. NST reactive at 35w2d status reassuring. Activity and Exercise discussed. movement/PTL or Labor precautions Lab(s) Ordered Reviewed Pre-eclampsia signs/symptoms GBS next visit Return for Next scheduled follow up, NST LOS. Dayanna Marvin APRN 11/11/2024 documented in this encounter Plan of Treatment Upcoming Encounters Date Type Department Care Team (Late st Contact Info) Description 12/01/2024 3:15 PM EDT Visit [facility] OBGYN [facility] [address] [address] Sheldon Godoy APRN [address] [facility] [address] [place] [address] 09/22/2025 2:45 PM EDT Office Visit [facility] SLEEP MEDICINE [address] [facility] [address] [place] [address] Dave Montaño Jamie, TECHNICAL SOLUTION ARCHITECT [address] [place] [id number] documented as of this encounter Procedures Procedure Name Priority Date/Time Associated Diagnosis Comments ALP+ALT+AST+CREAT+ LD+TBILI+.. STAT 11/11/2024 9:28 AM EDT care, first in third trimester Antepartum mild preeclampsia SCANNED - PROCEDURE 11/11/2024 documented in this encounter Results * (ABNORMAL) AlP+ALT+AST+Creat+LD+TBili+.. (11/11/2024 9:28 AM EDT) Uric Acid 5.3 2.4 - 5.7 mg/dL [facility] Creatinine 0.64 0.57 - 1.00 mg/dL [facility] EGFR Result 126.0 >60.0 mL/min/1.7 3 [facility] Comment: GFR [...] - 1.2 mg/dL [facility] Alkaline Phosphatase 120(H) 39 - 117 U/L [facility] LDH 190 135 - 214 U/L [facility] AST (SGOT) 34(H) 1 - 32 U/L [facility] ALT (SGPT) 60(H) 1 - 33 U/L [facility] WBC 8.55 3.40 - 10.80 10*3/mm3 [facility] RBC 4.19 3.77 - 5.28 10*6/mm3 [facility] Hemoglobin 12.5 12.0 - 15.9 g/dL [facility] Hematocrit 37.5 34.0 - 46.6 % [facility] MCV 89.5 79.0 - 97.0 fL [facility] MCH 29.8 26.6 - 33.0 pg [facility] MCHC 33.3 31.5 - 35.7 g/dL [facility] RDW 14.3 12.3 - 15.4 % [facility] Platelets 199 140 - 450 10*3/mm3 [facility] Neutrophil Rel % 73.9 42.7 - 76.0 % [facility] Lymphocyte Rel % 17.1(L) 19.6 - 45.3 % [facility] Monocyte Rel % 7.6 5.0 - 12.0 % [facility] Eosinophil Rel % 0.4 0.3 - 6.2 % [facility] Basophil Rel % 0.4 0.0 - 1.5 % [facility] Neutrophils Absolute 6.33 1.70 - 7.00 10*3/mm3 [facility] Lymphocytes Absolute 1.46 0.70 - 3.10 10*3/mm3 [facility] Monocytes Absolute 0.65 0.10 - 0.90 10*3/mm3 [facility] Eosinophils Absolute 0.03 0.00 - 0.40 10*3/mm3 [facility] Basophils Absolute 0.03 0.00 - 0.20 10*3/mm3 [facility] Immature Granulocyte Rel % 0.6(H) 0.0 - 0.5 % [facility] Immature Grans Absolute 0.05 0.00 - 0.05 10*3/mm3 [facility] nRBC 0.0 0.0 - 0.2 /100 WBC [facility] Blood 11/11/2024 9:28 AM EDT 11/11/2024 Narrative [facility] - 11/12/2024 6:09 AM EDT Performed at: [address] [id number] Final Cigar And Box Examiner: Jeremy Emanuel MD, Phone: [phone] Patient Fasting: N us Dayanna Marvin TECHNICAL SOLUTION ARCHITECT LAB BLOOD ORDERABLES Milena l Result [facility] [address] [place] [address], [place] [phone] [facility] [address] [place] [address], * Procedure Scanned (11/11/2024) Bhavya Carter MD PROCEDURE/MINOR SURGICAL ORDERA BLES Final Result documented in this encounter Visit Diagnoses Diagnosis care, first in third trimester- Primary Antepartum mild preeclampsia documented in this encounter Care Teams Construction Carpenters Helper Relationship Specialty Start Date End Date Sue Lieberman APRN [address] [place] [id number] PCP - General Internal Medicine 03/09/24 documented as of this encounter
--- OUTSIDE RECORDS SUMMARY | 2024-11-15 10:58 | XMS_ITS | Encounter Summary ---
[facility] Address [address] [place] [address] Care Team Providers Care Director Emergency Services Name Role Phone Sue Lieberman APRN Primary Care Provider [phone] Reason for Referral * Diagnostic Imaging (Routine) - Closed Specialty Diagnoses / Procedures Referred By Ernieac t Referred To Contact Radiology Diagnoses Elevated liver enzymes Antepartum mild preeclampsia Procedures US [facility] Diagnostic [place] Britt Paul MD [address] [place] [address] [address] Phone: tel: fax: [facility] US PER DI[facility] [address] [place] [address] Phone: tel: Referral ID Status Reason Start Date Expiration Date Visits Re quested Visits Authorized [id number] Closed 11/01/2024 01/31/2026 1 1 Reason for Visit * Diagnostic Imaging (Routine) - Closed Specialty Diagnoses / Procedures [facility] Referred To Contact Radiology Diagnoses Elevated liver enzymes Antepartum mild preeclampsia Procedures US [facility] Diagnostic [place] Britt Paul MD [address] [facility] [address] [place] [address] Phone: tel: fax: [facility] US PER DI[facility] [address] [place] [address] Phone: tel: Referral ID Status Reason Start Date Expiration Date Visits Re quested Visits Authorized [id number] Closed 11/01/2024 01/31/2026 1 1 Encounter Details Date Type Department Care Team (Latest Contact Info) Description 11/15/2024 10:58 AM EDT - 11/15/2024 11:59 PM EDT Hospital Encounter [facility] PER [facility] CTR [address] [place] [address] Elevated liver enzymes; Antepartum mild preeclampsia Discharge Disposition: Home or Self Care Social History Tobacco Use Types Packs/Day Years Used Date Smoking Tobacco: Never Smokeless Tobacco: Never Alcohol Use Standard Drinks/Week Comments Not Currently 2 (1 standard drink = 0.6 oz pur e alcohol) [facility] Utilities Answer Date Recorded In the past 12 months has [employer], gas, oil, or water [employer] threatened to shut off services in your [...] and heating? Not hard at all 10/13/2024 [facility] [place] of Occupat ional Health - Occupational Stress [...] GED or equivalent No 10/13/2024 Preferred Language Jordanian 10/13/2024 PHQ-2 Answer Date Recorded Patient Health [...] by mouth Daily. 30 tablet 9 05/05/2024 6 aspirin 81 MG chewable tablet Chew 1 tablet Daily. 5 cetirizine (zyrTEC) 10 MG tablet Take 1 tablet by mouth Daily. 5 docusate sodium (Colace) 100 MG capsuleIndications:I [...] Info) Description 12/01/2024 3:15 PM EDT Visit [facility] OBGYN [address] [facility] [address] [place] [address] Sheldon Godoy, CLIENT PARTNER [address] [facility] [address] [place] [address] 09/22/2025 2:45 PM EDT Office Visit [facility] SLEEP MEDICINE [address] [facility] [address] [place] [address] Dave Montaño, CLIENT PARTNER [address] [place] [address] documented as of this encounter Procedures Procedure Name Priority Date/Time Associated Diagnosis Comments US [facility] Routine 11/15/2024 11:32 AM EDT Elevated liver enzymes Antepartum mild preeclampsia documented in this encounter Results * [facility] (11/15/2024 11:32 AM EDT) Anatomical Region Laterality Modality Ultrasound 11/15/2024 11:0 7 AM EDT Narrative 11/15/2024 11:44 AM EDT PAT NAME: PENNY KEBEDE MED REC#: [id number] DA: [id number] PAT GEND: F PAT TYPE: O EXAM JEAN-CLAUDE: [id number] REF PHYS KARAN MAYO Comparison Studies The [...] EFW (oz) 14 oz EFW by: Hadlock ([id number]) Extended Cav. septi pel. tr 6.6 mm [...] Normal Heart / Thorax 3-vessel view: suboptimal 6-pzzfqa-syehvez view: suboptimal Stomach: Appears normal Kidneys: Appears [...] Follow-up as clinically indicated. Coding ======= Description: 11789-21 Follow Up Ultrasound Description: 91319-92 BPP without NST Pharmacist In Charge: Monae Armstrong RDMS Physician: Joaquín Barrientos MD, FACOG Electronically signed by: Joaquín Barrientos MD, FACOG at: 11:44 Procedure Note Joaquín Barrientos MD - 11/15/2024 PAT NAME: PENNY KEBEDE MED REC#: [id number] DA: [id number] PAT GEND: F PAT TYPE: O EXAM JEAN-CLAUDE: [id number] REF PHYS KARAN MAYO Comparison Studies The findings of this study are compared to the prior ultrasound studydated 10/31/24. Patient Status Outpatient Indication ======== Preeclampsia. Super obesity BMI 52. Maternal Assessment Vxptrx873 cm Height (ft)5 ft Height (in)3 in Rrlpga083 kg Weight (lb)300 lb BMI53.16 kg/m Method ======= Transabdominal ultrasound examination. View: Limited by patient bodyhabitus ========= Navarro . Number of fetuses: 1 Dating ====== LMP on:02/25/2024 GA by [id number] w + 5 d KAREN by LMP:12/01/2024 GA by prior [id number] w + 6 d KAREN by prior [...] GA35 w + 6 d Assigned KAREN:12/14/2024 [id number] d Biometry Standard BPD88.2 mm 35w 5d 51% Hadlock MEA148.3 mm -/- 98% Mary HC329.0 mm 37w 3d 58% Hadlock Cerebellum tr46.9 mm 35w 3d 34% Hill AC342.8 mm 38w 1d 98% Hadlock Femur68.4 mm 35w 1d 26% Hadlock Pqwggom08.8 mm 35w 1d 51% Mary HC / AC0.96 EFW3,113 g 37w 3d 82% Hadlock EFW (lb)6 lb EFW (oz)14 oz EFW by:Hadlock ([id number]-[id number]-FL) Extended Cav. septi pel. tr6.6 mm CM7.9 mm 61% Nicolaides Head / Face / Neck Cephalic index0.75 4% Nicolaides Extremities / Bony Struc FL / BPD0.78 FL / HC0.21 FL / AC0.20 Other Structures [id number] bpm General Evaluation Cardiac activity present. FHR 141 bpm. movements present. Presentation cephalic. Placenta Placental site: posterior. Amniotic fluid Amount of AF: normal. MVP 4.8 cm. JD 16.0 cm. Q1 3.1 cm,Q2 4.5 cm, Q3 4.8 cm, Q4 3.6 cm. Anatomy Cranium:Normal Cavum septi pellucidi:Normal Cerebellum:Normal Cisterna magna:Normal Lips:suboptimal Profile:suboptimal 4-chamber view:Appears normal RVOT view:Normal LVOT view:Normal Heart / Thorax 3-vessel view:suboptimal 0-bxgqow-netnzxf view:suboptimal Stomach:Appears normal Kidneys:Appears normal Bladder:Appears normal [...] Recommendation Follow-up as clinically indicated. Coding ======= Description:78487-65 Follow Up Ultrasound Description:18971-71 BPP without NST Pharmacist In Charge: Monae Armstrong RDMS Physician: Joaquín Barrientos MD, FACOG Electronically signed by: Joaquín Barrientos MD, FACOG at: 11:44 us Britt Paul MD IMG US ORDERABLES Final Result documented in this encounter Visit Diagnoses Diagnosis Elevated liver enzymes Other nonspecific abnormal serum enzyme levels Antepartum mild preeclampsia documented in this encounter Care Teams Director Emergency Services Relationship Specialty Start Date End Date Sue Lieberman APRN [address] [place] [address] JASMYNE WATTS [address] PCP - General Internal Medicine 03/09/24 documented as of this encounter
--- OUTSIDE RECORDS SUMMARY | 2024-11-15 11:15 | XMS_ITS | Encounter Summary ---
[facility] Address [address] [place] [address] Care Team Providers Care Spinner Open End Name Role Phone LiebermanSue ALEE Primary Care Provider [phone] Reason for Visit * Reason Comments SO; preeclampsia Encounter Details Date Type Department Care Team (Late st Contact Info) Description 11/15/2024 11:15 AM EDT Office Visit [facility] MATERNAL MEDICINE [address] [place] [address] [place] [phone] Joaquín Barrientos MD [address] [facility] [address] [place] [address] Antepartum mild preeclampsia (Primary Dx) Social History Tobacco Use Types Packs/Day Years Used Date Smoking Tobacco: Never Smokeless Tobacco: Never Alcohol Use Standard Drinks/Week Comments Not Currently 2 (1 standard drink = 0.6 oz pur e alcohol) [facility] Utilities Answer Date Recorded In the past 12 months has [employer], gas, oil, or water company threatened to [...] and heating? Not hard at all 10/13/2024 [facility] - Occupational Stress Questionnaire Answer [...] GED or equivalent No 10/13/2024 Preferred Language Nepalese 10/13/2024 PHQ-2 Answer Date Recorded Patient Health Questionnaire-2 Score 0 10/13/2024 Comments Yes Sex and Gender Information Value Date Recorded Sex Assigned at Female 10/01/2024 2:08 PM EDT Legal Sex Female 10:46 AM EDT Gender Identity Not on file Sexual Orientation Not on file documented as of this encounter Last Filed Vital Signs Vital Sign Reading Time Taken Comments Blood Pressure 125/67 11/15/2024 11:03 AM EDT Pulse - - Temperature - - Respiratory Rate - - Oxygen Saturation - - Inhaled Oxygen Concentration - - Weight 136 kg (300 lb 6.4 oz) 11/15/2024 11:03 A M EDT Height - - Body Mass Index 53.23 09/16/2024 2:28 PM EDT documented in this encounter Progress Notes * Janice Zamudio RN - 11/15/2024 11:15 AM EDT Patient denies any leaking of fluid or vaginal bleeding. She reports daily gildardo palomo contractions. NIPT negative. Patient reports next follow-up appointment with Dr. Carter' office is today. * Joaquín Barrientos MD - 11/15/2024 11:15 AM EDT Documentation of the ultrasound findings, images, and interpretations will be available in the patient's Viewpoint report which is located in the imaging tab in chart review. documented in this encounter Plan of Treatment Upcoming Encounters Date Type Department Care Team (Late st Contact Info) Description 12/01/2024 3:15 PM EDT Visit [facility] OBGYN [address] [facility] [address] [place] [address] Sheldon Godoy, LASTING MACHINE OPERATOR [address] [facility] [address] [place] [address] 09/22/2025 2:45 PM EDT Office Visit [facility] SLEEP MEDICINE [address] [facility] [place] [place] [phone] Dave Montaño, LASTING MACHINE OPERATOR [address] [place] [address] documented as of this encounter Visit Diagnoses Diagnosis Antepartum mild preeclampsia- Primary documented in this encounter Care Teams Spinner Open End Relationship Specialty Start Date End Date Sue Lieberman, LASTING MACHINE OPERATOR [address] [place] [address] PCP - General Internal Medicine 03/09/24 documented as of this encounter
--- OUTSIDE RECORDS SUMMARY | 2024-11-15 13:00 | XMS_ITS | Encounter Summary ---
Author Organization [facility] ystem Address [address] [place] [address] Care Team Providers Care Trimming Cutter Name Role Phone Sue Lieberman TELEPHONE BETTING CLERK Primary Care Provider [phone] Reason for Visit * Reason Comments Routine Visit Encounter Details Date Type Department Care Team (Late st Contact Info) Description 11/15/2024 1:00 PM EDT Routine [facility] OBGYN [address] [address] Bhavya Carter MD [address] [place] [address] GA: 35w6d Social History Tobacco Use Types Packs/Day Years Used Date Smoking Tobacco: Never Smokeless Tobacco: Never Alcohol Use Standard Drinks/Week Comments Not Currently 2 (1 standard drink = 0.6 oz pur e alcohol) [facility] Utilities Answer Date Recorded In the past 12 months has [employer], gas, oil, or water [employer] threatened to shut off services in your [...] and heating? Not hard at all 10/13/2024 [facility] [place] of Occupat ional Health - Occupational Stress [...] GED or equivalent No 10/13/2024 Preferred Language Thai 10/13/2024 PHQ-2 Answer Date Recorded Patient Health Questionnaire-2 Score 0 10/13/2024 Comments Yes Sex and Gender Information Value Date Recorded Sex Assigned at Female 10/01/2024 2:08 PM EDT Legal Sex Female 10:46 AM EDT Gender Identity Not on file Sexual Orientation Not on file documented as of this encounter Last Filed Vital Signs Vital Sign Reading Time Taken Comments Blood Pressure 128/82 11/15/2024 12:39 PM EDT Pulse - - Temperature - - Respiratory Rate - - Oxygen Saturation - - Inhaled Oxygen Concentration - - Weight 137 kg (301 lb 12.8 oz) 11/15/2024 12:39 PM EDT Height - - Body Mass Index 53.48 09/16/2024 2:28 PM EDT documented in this encounter Progress Notes * Bhavya Carter MD - 11/15/2024 1:00 PM EDT Images from the original note were not included. OB FOLLOW UP CC- Here for care of Penny Kebede is a 24 y.o. 35w6d patient being seen today for her obstetrical follow up visit. Patient reports her BP's at home have been 110-120s/60s-75. Patient reports swelling in BLE and RUQ pain. Patient reports a constant dull ache in the RUQ with intermittent sharp pains with FM. Her care is complicated by (and status) : see below. Patient Active Problem List Diagnosis Asthma Obesity affecting , antepartum Morbid obesity with BMI of 50.0-59.9, adult Teratogen exposure in current Antepartum mild preeclampsia Elevated liver enzymes Ultrasound Today: Yes with PDC. Per PDC- Today's exam reveals a SIUP in cephalic presentation withbiometry consistent with dates. Limited anatomic survey appears normal. The JD and BPP are normal. . Non Stress Test: No ROS - Patient Denies: Loss of Fluid, [...] as entered above. Bhavya Carter MD BP 128/82 Wt (!) 137 kg (301 lb 12.8 oz) LMP 02/25/2024 (Approximate) BMI 53.48 kg/m?? EXAM: Vitals BP: 128/82 Weight: (!) 137 kg (301 lb 12.8 oz) Urine Glucose Read-only: Negative Urine Protein Read-only: (!) Trace Assessment and Plan Problem List Items Addressed This Visit Endocrine and Metabolic Morbid obesity with BMI of 50.0-59.9, adult Relevant Orders POC Urinalysis Dipstick (Completed) Gastrointestinal Abdominal Elevated liver enzymes Relevant Orders POC Urinalysis Dipstick (Completed) Gravid and Obesity affecting , antepartum Relevant Orders POC Urinalysis Dipstick (Completed) Relevant Orders POC Urinalysis Dipstick (Completed) Strep B Screen - , Vaginal/Rectum Teratogen exposure in current Relevant Orders POC Urinalysis Dipstick (Completed) Antepartum mild preeclampsia - Primary Relevant Medications labetalol (NORMODYNE) 200 MG tablet Other Relevant Orders POC Urinalysis Dipstick (Completed) AlP+ALT+AST+Creat+LD+TBili+.. at 35w6d status reassuring. Activity and Exercise discussed. movement/PTL or Labor precautions GBS today as delivering at 37 weeks. Return in about 3 days (around 11/18/2024) for In sheldahl with NST. Bhavya Carter MD 11/15/2024 documented in this encounter Plan of Treatment Upcoming Encounters Date Type Department Care Team (Late st Contact Info) Description 12/01/2024 3:15 PM EDT Visit [facility] OBGYN [address] [facility] [address] [place] [address] Sheldon Godoy, TELEPHONE BETTING CLERK [address] [facility] [address] [place] [address] 09/22/2025 2:45 PM EDT Office Visit [facility] SLEEP MEDICINE [address] [facility] [address] [place] [address] Dave Montaño, TELEPHONE BETTING CLERK [address] [place] [address] documented as of this encounter Procedures Procedure Name Priority Date/Time Associated Diagnosis Comments GROUP B STREPTOCOCCUS CULTURE Routine 11/15/2024 7:06 PM EDT 35 weeks gestation of ALP+ALT+AST+CREAT+LD+ TBILI+.. Routine 11/15/2024 1:29 PM EDT Antepartum mild preeclampsia POCT URINALYSIS DIPSTICK, MANUAL Routine 11/15/2024 12:39 PM EDT Antepartum mild preeclampsia Teratogen exposure in current , single or unspecified fetus 35 weeks gestation of Obesity affecting , antepartum, unspecified obesity type Elevated liver enzymes Morbid obesity with BMI of 50.0-59.9, adult documented in this encounter Results * Group B Streptococcus Culture - Swab, Vaginal/Rectum (11/15/2024 7:06 PM EDT) Group B Strep Culture No Group B Streptococcus isolated GIUSEPPE 11/18/2024 8:21 AM EDT [facility] Swab Rectum and vagina, CS / Unknown Collection / Unknown 11/15/2024 7:06 PM EDT 11/15/2024 7:06 PM EDT us Bhavya Carter MD MICROBIOLOGY - GENERAL ORDERABL ES Final Result [facility]
[address] [place] [address], * (ABNORMAL) AlP+ALT+AST+Creat+LD+TBili+.. (11/15/2024 1:29 PM EDT) Uric Acid 5.6 2.4 - 5.7 mg/dL [facility] Creatinine 0.81 0.57 - 1.00 mg/dL [facility] EGFR Result 103.5 >60.0 mL/min/1.7 3 [facility] Comment: GFR [...] include race as a factor Total Bilirubin 0.2 0.0 - 1.2 mg/dL [facility] Alkaline Phosphatase 116 39 - 117 U/L [facility] LDH 205 135 - 214 U/L [facility] AST (SGOT) 49(H) 1 - 32 U/L [facility] ALT (SGPT) 76(H) 1 - 33 U/L [facility] WBC 9.33 3.40 - 10.80 10*3/mm3 [facility] RBC 4.10 3.77 - 5.28 10*6/mm3 [facility] Hemoglobin 12.2 12.0 - 15.9 g/dL [facility] Hematocrit 36.4 34.0 - 46.6 % [facility] MCV 88.8 79.0 - 97.0 fL [facility] MCH 29.8 26.6 - 33.0 pg [facility] MCHC 33.5 31.5 - 35.7 g/dL [facility] RDW 14.0 12.3 - 15.4 % [facility] Platelets 193 140 - 450 10*3/mm3 [facility] Neutrophil Rel % 73.3 42.7 - 76.0 % [facility] Lymphocyte Rel % 16.8(L) 19.6 - 45.3 % [facility] Monocyte Rel % 9.2 5.0 - 12.0 % [facility] Eosinophil Rel % 0.3 0.3 - 6.2 % [facility] Basophil Rel % 0.2 0.0 - 1.5 % [facility] Neutrophils Absolute 6.83 1.70 - 7.00 10*3/mm3 [facility] Lymphocytes Absolute 1.57 0.70 - 3.10 10*3/mm3 [facility] Monocytes Absolute 0.86 0.10 - 0.90 10*3/mm3 [facility] Eosinophils Absolute 0.03 0.00 - 0.40 10*3/mm3 [facility] Basophils Absolute 0.02 0.00 - 0.20 10*3/mm3 [facility] Immature Granulocyte Rel % 0.2 0.0 - 0.5 % [facility] Immature Grans Absolute 0.02 0.00 - 0.05 10*3/mm3 [facility] nRBC 0.0 0.0 - 0.2 /100 WBC [facility] Blood 11/15/2024 1:29 PM EDT 11/15/2024 Narrative [facility]) - 11/16/2024 3:35 AM EDT Performed at: [address] [place] [id number] Insurance Appraiser: Jeremy Emanuel MD, Phone: [phone] Bhavya Carter MD LAB BLOOD ORDERABLES Final Resu lt [facility] ([facility]) [address] [place] [address], [facility] [address] [place] [address], * (ABNORMAL) POC Urinalysis Dipstick (11/15/2024 12:39 PM EDT) Pathologist [facility] Glucose, UA Negative Negative mg/dL [facility] Protein, POC Trace(A) Negative mg/dL [facility] Urine 11/15/2024 12:3 9 PM EDT us Bhavya Carter MD POINT OF CARE TEST ORDERABLES F inal Result [facility]
[address] [place] [address], documented in this encounter Visit Diagnoses Diagnosis Antepartum mild preeclampsia- Primary Teratogen exposure in current , single or unspecified fetus 35 weeks gestation of Obesity affecting , antepartum, unspecified obesity type Elevated liver enzymes Other nonspecific abnormal serum enzyme levels Morbid obesity with BMI of 50.0-59.9, adult documented in this encounter Care Teams Trimming Cutter Relationship Specialty Start Date End Date Sue Lieberman APRN [address] [place] [address] PCP - General Internal Medicine 03/09/24 documented as of this encounter
--- OUTSIDE RECORDS SUMMARY | 2024-11-15 19:10 | XMS_ITS | Encounter Summary ---
[facility] Address [address] [place] [address] Care Team Providers Care Epic Radiant Analyst Name Role Phone Sue Lieberman HUMAN RESOURCES SAFETY MANAGER Primary Care Provider [phone] Encounter Details Date Type Department Care Team (Late st Contact Info) Description 11/15/2024 7:10 PM EDT Lab [facility] [address] [place] [address] Social History Tobacco Use Types Packs/Day Years Used Date Smoking Tobacco: Never Smokeless Tobacco: Never Alcohol Use Standard Drinks/Week Comments Not Currently 2 (1 standard drink = 0.6 oz pur e alcohol) [facility] Utilities Answer Date Recorded In the past 12 months has [employer] electric, gas, oil, or water company threatened [...] and heating? Not hard at all 10/13/2024 [employer] [place] of Occupat ional Health - Occupational Stress [...] none 10/13/2024 Family and Community Support Answer Jean-Cluade e Recorded If for any reason you [...] GED or equivalent No 10/13/2024 Preferred Language Indian 10/13/2024 PHQ-2 Answer Date Recorded Patient Health Questionnaire-2 Score 0 10/13/2024 Comments Yes Sex and Gender Information Value Date Recorded Sex Assigned at Female 10/01/2024 2:08 PM EDT Legal Sex Female 10:46 AM EDT Gender Identity Not on file Sexual Orientation Not on file documented as of this encounter Plan of Treatment Upcoming Encounters Date Type Department Care Team (Late st Contact Info) Description 12/01/2024 3:15 PM EDT Visit [facility] OBGYN 17[address] [facility] [address] [place] [phone] Sheldon Godoy, HUMAN RESOURCES SAFETY MANAGER 1700 [facility] [address] [place] [address] 09/22/2025 2:45 PM EDT Office Visit [facility] SLEEP MEDICINE 3000 [facility] [address] [place] [address] Dave Montaño, HUMAN RESOURCES SAFETY MANAGER [address] [place] [address] documented as of this encounter Visit Diagnoses Not on filedocumented in this encounter Care Teams Epic Radiant Analyst Relationship Specialty Start Date End Date Sue Lieberman, ALEE [address] [address] PCP - General Internal Medicine 03/09/24 documented as of this encounter
--- OUTSIDE RECORDS SUMMARY | 2024-11-18 09:30 | XMS_ITS | Encounter Summary ---
Author Organization [facility] ystem Address [address] [place] [address] Care Team Providers Care Shoeblack Name Role Phone Sue Lieberman COOK MAYONNAISE Primary Care Provider [phone] Reason for Visit * Reason Comments Routine Visit Encounter Details Date Type Department Care Team (Late st Contact Info) Description 11/18/2024 9:30 AM EDT Routine [facility] OBGYN [address] [place] [address] [place] [address] [place] [address] GA: 36w2d Social History Tobacco Use Types Packs/Day Years Used Date Smoking Tobacco: Never Smokeless Tobacco: Never Alcohol Use Standard Drinks/Week Comments Not Currently 2 (1 standard drink = 0.6 oz pur e alcohol) [facility] Utilities Answer Date Recorded In the past 12 months has [employer], gas, oil, or water [employer] threatened to shut off services in your [...] and heating? Not hard at all 10/13/2024 [facility] - Occupational Stress Questionnaire Answer Date [...] GED or equivalent No 10/13/2024 Preferred Language Yemeni 10/13/2024 PHQ-2 Answer Date Recorded Patient Health [...] Info) Description 12/01/2024 3:15 PM EDT Visit [facility] OBGYN 1700 [facility] [address] [place] [phone] Sheldon Godoy, COOK MAYONNAISE 1700 [facility] [address] [place] [id number] 09/22/2025 2:45 PM EDT Office Visit [facility] SLEEP MEDICINE 3000 [facility] [address] [place] [address] Dave Montaño, COOK MAYONNAISE [address] [place] [address] documented as of this encounter Procedures Procedure [...] complication documented in this encounter Care Teams Shoeblack Relationship Specialty Start Date End Date Sue Lieberman APRN [facility] [address] [address] PCP - General Internal Medicine 03/09/24 documented as of this encounter
--- OUTSIDE RECORDS SUMMARY | 2024-11-22 13:50 | XMS_ITS | Encounter Summary ---
Author Organization [facility] ystem Address [address] [place] [address] Care Team Providers Care Engineering Surveyor Name Role Phone Sue Lieberman PROM BURN OFF OPERATOR Primary Care Provider [phone] Reason for Visit * Reason Comments Routine Visit Encounter Details Date Type Department Care Team (Late st Contact Info) Description 11/22/2024 1:50 PM EDT Routine [facility] OBGYN [address] [address] Bhavya Carter MD [address] [place] [address] [place]: 36w6d Social History Tobacco Use Types Packs/Day Years Used Date Smoking Tobacco: Never Smokeless Tobacco: Never Alcohol Use Standard Drinks/Week Comments Not Currently 2 (1 standard drink = 0.6 oz pur e alcohol) [facility] Utilities Answer Date Recorded In the past 12 months has [employer], gas, oil, or water [employer] threatened to shut off services in your home? No 11/23/2024 AUDIT-C Answer Date Recorded Q1: How often do you have a drink containing alcohol? Never 11/23/2024 Q2: How many drinks containi ng alcohol do you have on a typical day when you are drinking? Patient does not drink Q3: How often do you have si x or more drinks on one occasion? Never 11/23/2024 Overall Financial Resource Strain (CARDIA) Answe r Date Recorded How hard is it for you to pa y for the very basics like food, housing, medical care, and heating? Not hard at all 11/23/2024 [facility] [place] of Occupat ional Health - Occupational Stress Questionnaire Answer Date Recorded Do you feel stress - tense, restless, nervous, or anxious, or unable to sleep at night because your mind is troubled all the time - these days? Not at all 11/23/2024 Exercise Vital Sign Answer Date Recorde d On average, how many days pe r week do you engage in moderate to strenuous exercise (like a brisk walk)? 0 days 11/23/2024 On average, how many minutes do you engage in exercise at this level? 0 min 11/23/2024 Hunger Vital Sign Answer Date Recorded Within the past 12 months, y ou worried that your food would run out before you got the money to buy more. Never true 11/24/19 25 Within the past 12 months, t he food you bought just didn't last and you didn't have money to get more. Never true 11/23/2024 PRAPARE - Transportation Answer Date Re corded In the past 12 months, has l ack of transportation kept you from medical appointments or from getting medications? No 11/02 In the past 12 months, has l ack of transportation kept you from meetings, work, or from getting things needed for daily living? No 11/23/2024 Abuse Screen Answer Date Recorded Feels Unsafe at Home or Work/School no 11/23/2024 Feels Threatened by Someone no 11/02 Does Anyone Try to Keep You From Having Contact with Others or Doing Things Outside Your Home? no 11/23/2024 Physical Signs of Abuse Present no 11/23/2024 Housing Stability Answer Date Recorded Current Living Arrangements home 11/02 Potentially Unsafe Housing Conditions none 11/23/2024 Family and Community Support Answer Jean-Claude e Recorded If for any reason you need h elp with day-to-day activities such as bathing, preparing meals, shopping, managing finances, etc., do you get the help you need? I don't need any help 11/23/2024 How often do you feel lonely or isolated from those around you? Never 11/23/2024 Employment Answer Date Recorded Do you want help finding or keeping work or a job? I do not need or want help 11/23/2024 Disabilities Answer Date Recorded Difficulty Concentrating, Remembering or Making Decisions no 11/23/2024 Difficulty Managing Errands Independently no 11/23/2024 Education Answer Date Recorded Do you want help with school or training? For example, starting or completing job training or getting a high school diploma, GED or equivalent No 11/23/2024 Preferred Language Jordanian 11/23/2024 PHQ-2 Answer Date Recorded Patient Health Questionnaire-2 Score 0 11/23/2024 Comments Yes Sex and Gender Information Value Date Recorded Sex Assigned at Female 10/01/2024 2:08 PM EDT Legal Sex Female 10:46 AM EDT Gender Identity Not on file Sexual Orientation Not on file documented as of this encounter Last Filed Vital Signs Vital Sign Reading Time Taken Comments Blood Pressure 128/86 11/22/2024 2:05 PM EDT Pulse - - Temperature - - Respiratory Rate - - Oxygen Saturation - - Inhaled Oxygen Concentration - - Weight 135 kg (298 lb 9.6 oz) 11/22/2024 2:05 PM EDT Height - - Body Mass Index 52.91 09/16/2024 2:28 PM EDT documented in this encounter Progress Notes * Bhavya Carter MD - 11/22/2024 1:50 PM EDT Images from the original note were not included. OB FOLLOW UP CC- Here for care of Penny Kebede is a 24 y.o. 36w6d patient being seen today for her obstetrical follow up visit. Patient reports her BP's at home have been 100-120/60-80. She reports increase in BLE edema that does not relieve with rest and elevation. States she has BH contractions that are more frequent at night. Her care is complicated by (and status) : see below. and GHTN Patient Active Problem List Diagnosis Asthma Obesity affecting , antepartum Morbid obesity with BMI of 50.0-59.9, adult Teratogen exposure in current Antepartum mild preeclampsia Elevated liver enzymes GBS Status: Group B Strep Culture Date Value Ref Range Status 11/15/2024 No Group B Streptococcus isolated Final Allergies Allergen Reactions Penicillins Unknown - Low Severity Childhood allergy - unsure of reaction Her Delivery Plan is: IOL scheduled for 11/23/24 @ 8:00pm US today: no Non Stress Test: Yes minutes non-stress test: NST: Reactive indication: GHTN ROS - Patient Denies: Loss of Fluid, Vaginal Spotting, Vision Changes, Headaches, Epigastric pain, and skin itching Movement : normal Other than what is documented in the HPI, all other systems reviewed and are negative. The additional following portions of the patient's history were reviewed and updated as appropriate: allergies and current medications. I have reviewed and agree with the HPI, ROS, and historical information as entered above. Bhavya Carter MD EXAM: Vitals BP: 128/86 Weight: 135 kg (298 lb 9.6 oz) Heart Rate: NST NST NOTE Indiction : PIH FHR: Reactive, Cat 1, No decels Contractions: Irregular Time Monitored: > 20 minutes Urine Glucose Read-only: Negative Urine Protein Read-only: Negative Assessment and Plan Problem List Items Addressed This Visit None Visit Diagnoses care, first in third trimester - Primary Relevant Orders POC Urinalysis Dipstick (Completed) at 36w6d status reassuring. Reviewed Pre-eclampsia signs/symptoms Delivery options reviewed with patient and induction process discussed. Return in about 2 weeks (around 12/06/2024). Bhavya Carter MD 11/22/2024 documented in this encounter Plan of Treatment Upcoming Encounters Date Type Department Care Team (Late st Contact Info) Description 12/01/2024 3:15 PM EDT Visit [facility] O[facility]YN [address] [facility] [address] [place] [address] Sheldon Godoy, PROM BURN OFF OPERATOR [address] [facility] [address] [place] [address] 09/22/2025 2:45 PM EDT Office Visit [facility] SLEEP MEDICINE [address] [facility] [address] [place] [address] Dave Montaño, PROM BURN OFF OPERATOR [address] [place] [address] documented as of this encounter Procedures Procedure Name Priority Date/Time Associated Diagnosis Comments POCT URINALYSIS DIPSTICK, MANUAL Routine 11/22/2024 2:22 PM EDT care, first in third trimester SCANNED - PROCEDURE 11/22/2024 documented in this encounter Results * POC Urinalysis Dipstick (11/22/2024 2:22 PM EDT) Glucose, UA Negative Negative mg/dL [facility] Protein, POC Negative Negative mg/dL [facility] Urine 11/22/2024 2:22 PM EDT us Bhavya Carter MD POINT OF CARE TEST ORDERABLES F inal Result [facility]
[address] [place] [address], [place] [phone] * Procedure Scanned (11/22/2024) us Bhavya Carter MD PROCEDURE/MINOR SURGICAL ORDERA BLES Final Result documented in this encounter Visit Diagnoses Diagnosis care, first in third trimester- Primary documented in this encounter Care Teams Engineering Surveyor Relationship Specialty Start Date End Date Sue Lieberman APRN [facility] [address] [facility] [place] [address] PCP - General Internal Medicine 03/09/24 documented as of this encounter
--- OUTSIDE RECORDS SUMMARY | 2024-11-23 20:00 | XMS_ITS | Encounter Summary ---
Author Organization [facility] Address [address] [place] [address] Care Team Providers Care Conveyor Operator Name Role Phone MioSue ALEE Primary Care Provider [phone] Reason for Visit * Auth/Cert (Routine) Specialty Diagnoses / Procedures Referred By Contac t Referred To Contact Diagnoses Referral ID Status Reason Start Date Expiration Date Visits Re quested Visits Authorized [id number] 1 1 Encounter Details Date Type Department Care Team (Latest Contact Info) Description 11/23/2024 8:00 PM EDT - 11/23/2024 11:59 PM EDT Hospital Encounter [facility] PROCEDURES [address] [place] [phone] Discharge Disposition: Home or Self Care Social History Tobacco Use Types Packs/Day Years Used Date Smoking Tobacco: Never Passive Smoke Exposure: Never Smokeless Tobacco: Never Alcohol Use Standard Drinks/Week Comments Not Currently 2 (1 standard drink = 0.6 oz pur e alcohol) [facility] Utilities Answer Date Recorded In the past 12 months has [employer], gas, oil, or water company threatened [...] and heating? Not hard at all 11/23/2024 [facility] [place] of Occupat ional Health - Occupational Stress [...] GED or equivalent No 11/23/2024 Preferred Language [place] Citizen 11/23/2024 PHQ-2 Answer Date Recorded Patient Health [...] (Past 1 Month) No 025 9:02 PM KYLERT Jn Millan RN 2. Non-Specific Active Suici alexis Thoughts (Past 1 Month) No 11/23/2024 9:02 PM EDT Bonifacio Millan RN * Calculated C-SSRS Risk Score (Lifetime/Recent) Answer Date of Assessment Author No Risk Indicated 11/23/2024 9:02 PM EDJn Ferreira RN * [place] Suicide Severity Rating Scale (Screener/Recent Self-Report) Question Answer Date of Assessment Author 6. Suicidal Behavior (Lifetime) No 9:02 PM Jn Bartlett RN * Question Answer Date of Assessment Author Little interest or pleasure in doing things Not at all 11/23/2024 10:36 PM Jn Bartlett RN Feeling down, depressed, or hopeless Not at all 11/23/2024 10:36 PM KYLERT Jn Millan RN documented as of this encounter Medications [...] mouth Daily. 30 tablet 9 05/05/2024 6 oxyCODONE (ROXICODONE) 5 MG immediate release tabletIndications:Radha [...] EDT Visit [facility] OBGYN [address] [place] [address] Sheldon Godoy, CASH GRAIN FARMER [address] [facility] [address] [place] [address] 09/22/2025 2:45 PM EDT Office Visit [facility] SLEEP MEDICINE [address] [facility] [address] [place] [address] Dave Montaño, CASH GRAIN FARMER [address] [place] [address] documented as of this encounter Visit Diagnoses Not on filedocumented in this encounter Care Teams Conveyor Operator Relationship Specialty Start Date End Date Sue Lieberman APRN [address] [place] [address] PCP - General Internal Medicine 03/09/24 documented as of this encounter
--- OUTSIDE RECORDS SUMMARY | 2024-11-23 20:08 | XMS_ITS | Encounter Summary ---
[facility] Address [address] [place] [address] Care Team Providers Care Pst Manager Name Role Phone LiebermanSue duran ALEE Primary Care Provider [phone] Reason for Visit * Reason Comments Scheduled Induction * Auth/Cert (Routine) Specialty Diagnoses / Procedures Referred By Contac t Referred To Contact Diagnoses Referral ID Status Reason Start Date Expiration Date Visits Re quested Visits Authorized [id number] 1 1 Encounter Details Date Type Department Care Team (Late st Contact Info) Description 11/23/2024 8:08 PM EDT - 11/28/2024 3:35 PM EDT Hospital Encounter [facility] [address] [place] [id number] Bhavya Carter MD [address] [facility] [address] [place] [address] delivery delivered (Primary Dx); care and examination immediately after delivery Discharge Disposition: Home or Self Care Social History Tobacco Use Types Packs/Day Years Used Date Smoking Tobacco: Never Passive Smoke Exposure: Never Smokeless Tobacco: Never Tobacco Cessation:Counseling Given: No Alcohol Use Standard Drinks/Week Comments Not Currently 2 (1 standard drink = 0.6 oz pur e alcohol) [facility] Utilities Answer Date Recorded In the past 12 months has [employer] electric, gas, oil, or water company threatened [...] and heating? Not hard at all 11/23/2024 [facility] - Occupational Stress [...] things needed for daily living? No 11/23/2024 Bandy Depression Scale Answer Date Recorded Bandy Depression Scale Total 6 11/25/2024 The thought [...] GED or equivalent No 11/23/2024 Preferred Language South Korean 11/23/2024 PHQ-2 Answer Date Recorded Patient Health [...] (Past 1 Month) No 025 9:02 PM EDT Jn Millan RN 2. Non-Specific Active Suici alexis Thoughts (Past 1 Month) No 11/23/2024 9:02 PM EDT Bonifacio Millan RN * Calculated C-SSRS Risk Score (Lifetime/Recent) Answer Date of Assessment Author No Risk Indicated 11/23/2024 9:02 PM EDT Jn Millan RN * [place] Suicide Severity Rating Scale (Screener/Recent Self-Report) Question Answer Date of Assessment Author 6. Suicidal Behavior (Lifetime) No 9:02 PM Jn Bartlett RN * Question Answer Date of Assessment Author Little interest or pleasure in doing things Not at all 11/23/2024 10:36 PM EDT Jn Millan RN Feeling down, depressed, or hopeless Not at all 11/23/2024 10:36 PM EDT Jn Millan RN documented as of this encounter Discharge Summaries * Shilpa De Leon APRN - 11/28/2024 10:08 AM EDT Discharge Summary Date of Admission: 11/23/2024 Date of Discharge: 11/28/2024 Patient: Penny Kebede MR#:[id number] Primary Surgeon/OB: Bhavya Carter MD Discharge Surgeon/OB:same [...] to your nextappointment. Discharge Follow-up with Specialty: COUNTING MACHINE OPERATOR/Raul; 1 Week As directed Specialty: COUNTING MACHINE OPERATOR/Raul Follow Up: 1 Week Follow Up Details: [...] 11/27/2024 9:08 AM EDT 11/27/2024 Name:Penny Kebede MR#:[id number] PROGRESS NOTE: Post-Op 3 S/P HD:4 Subjective [...] last 3 completed shifts: In: - Out: 1950 [Urine:1950] LABS: Lab Results Component Value Date WBC 11.39 (H) 11/26/2024 HGB 9.1 (L) 11/26/2024 HCT 28.8 (L) 11/26/2024 MCV 90.9 11/26/2024 PLT 133 (L) 11/26/2024 Infant: female Assessment 1. POD 3, doing well 2. GHTN/severe preeclampsia--- BP wnl on labetalol 100 qd. LFT trending down. Asymptomatic. 3. MO-- Lovenox qd Plan: Routine postoperative care Active Problems: None Radha De Souza APRN 11/27/2024 09:08 EDT * Radha De Souza APRN - 11/26/2024 8:54 AM EDT 11/26/2024 Name:Penny Kebede MR#:[id number] PROGRESS NOTE: Post-Op 2 S/P HD:3 Subjective [...] 11/25/2024 7:24 AM EDT 11/25/2024 Name:Penny Kebede MR#:[id number] PROGRESS NOTE: Post-Op 1 S/P HD:2 Subjective [...] 11/23/2024 MCV 87.7 11/23/2024 PLT 202 11/23/2024 : female Assessment 1. POD 1, doing well; [...] note were not included. History and Physical [facility] Chief Complaint Patient presents with Scheduled [...] FHT's: reactive and category 1 Cervix: 1/50 [employer]: Contraction are irregular Lab Review Labs: No data reviewed Lab Results (last 24 hours) Procedure Component Value Units Date/Time Protein / Creatinine Ratio, Urine - Urine, Clean Catch [[id number]] Collected: 11/23/24 2315 Specimen: Urine, Clean Catch Updated: 11/24/24 09 Protein/Creatinine Ratio, Urine 102.9 mg/G Crea Creatinine, Urine 128.3 mg/dL Total Protein, Urine 13.2 mg/dL Treponema pallidum AB w/Reflex RPR [[id number]] (Normal) Collected: 11/23/242047 Specimen: Blood Updated: 11/24/24 025 Treponemal AB Total Non-Reactive Narrative: Reactive results will reflex RPR testing. Lactate Dehydrogenase [[id number]] (Abnormal) Collected: 11/23/242047 Specimen: Blood Updated: 11/23/242205 LDH 242 U/L Comment: Specimen hemolyzed. Results may be affected. Uric Acid [[id number]] (Normal) Collected: 11/23/242047 Specimen: Blood Updated: 11/23/242205 Uric Acid 5.1 mg/dL Comment: Falsely depressed results may occur on samples drawn from patients receiving N-Acetylcysteine (NAC) or Metamizole. Comprehensive Metabolic Panel [[id number]] (Abnormal) Collected: 11/23/242047 Specimen: Blood Updated: 11/23/242205 [...] race as a factor CBC (No Diff) [[id number]] (Normal) Collected: 11/23/242047 Specimen: Blood Updated: 11/23/242143 [...] for cervical ripening and induction of labor. Bhavya Carter MD 0:51 EDT documented in this [...] FHT's class 1. Patient tolerated well. 24 chinese,60ml. Adithya Nelson MD 11/23/2024 21:45 EDT documented in this encounter Nursing Notes * Esdras Sargent RN - 11/28/2024 12:59 PM EDT Goal Outcome Evaluation: D/C home today. Following up with Dr. Carter per her instructions Pt providing self care independently. * Alicia Salas RN - 11/28/2024 8:20 AM EDT 11/28/24 0820 Maternal Information Date of Referral 11/28/24 Person Making Referral presales consultant (courtesy prior to discharge) Maternal Reason for Referral other (see comments) (mother reporting well with pumping; getting drops, encouraged normal for early days, but to continue pumping every three hours around the clock for optimal milk supply; inquired about pump for preemie; encouraged discussing with SIZE MARKER.) No other needs/concerns. To call PRN. * Kimberly Nicolas RN - 11/25/2024 6:08 PM EDT 11/25/24 1808 Maternal Information Date of Referral 11/25/24 Person Making Referral presales consultant Maternal Reason for Referral separation from [...] Date of Referral 11/25/24 Person Making Referral presales consultant Maternal Reason for Referral no prior experience Reason for Referral 35-37 weeks gestation; infant;other (see comments) (coming down from NICU) Maternal Assessment Breast Size Issue none Breast Shape Bilateral:;wide;angled Breast Density Bilateral:;soft Nipples Bilateral:;everted;short Left Nipple Symptoms intact;nontender Right Nipple Symptoms intact;nontender Maternal Feeding Maternal Emotional State relaxed;receptive;other (see comments) [...] discharge Courtesy visit to newly Mom of infant who has been in NICU. Infant has just came down [facility]. Mom laying in chair when I [...] PM EDT Goal Outcome Evaluation: NOREEN ESPINOZA, pit @28mu, SVE /-2 documented in this encounter OR Notes * Op Note - Bhavya Carter MD - 11/24/2024 11:25 PM EDT Section Procedure Note Indications: Arrest of dilation Pre-operative Diagnosis: 1: 37w1d 2. Obesity Antepartum mild preeclampsia Elevated liver enzymes delivery delivered care and examination immediately after delivery Post-operative Diagnosis: 1: Same. . Procedures: Procedure(s): SECTION PRIMARYLTUI Surgeon: Bhavya Carter MD Cloth Layer: Anesthesia: Choice Estimated Blood Loss: 800 cc Infant: Gender: female Weight: 3510 g (7 lb 11.8 oz) [...] EDT Visit [facility] [address] [facility] [address] [place] [address] Sheldon Godoy, CHILD DEVELOPMENT INSTRUCTOR [address] [facility] [address] [place] [address] 09/22/2025 2:45 PM EDT Office Visit [facility] [address] [facility] [address] [place] [address] Dave Montaño, CHILD DEVELOPMENT INSTRUCTOR [address] [place] [address] documented as of this encounter Procedures Procedure [...] 3.40 - 10.80 10*3/mm3 [facility]/28[facility] RBC 3.12(L) 3.77 - 5.28 10*6/mm3 11/28/2024 7[facility] Hemoglobin 8.9(L) 12.0 - 15.9 g/dL 11/28/2024 7:38 AM EDT [facility] Hematocrit 28.7(L) 34.0 - 46.6 % 11/28/2024 7:38 AM [facility] MCV 92.0 79.0 - 97.0 fL 11/28/2024 7:38 AM [facility] MCH 28.5 26.6 - 33.0 pg 11/28/2024 7:38 AM [facility] MCHC 31.0(L) 31.5 - 35.7 g/dL 11/28/2024 7:38 AM [facility] RDW 15.0 12.3 - 15.4 % 11/28/2024 7:38 AM [facility] RDW-SD 50.3 37.0 - 54.0 fl 11/28/2024 7:38 AM [facility] MPV 10.6 6.0 - 12.0 fL 11/28/2024 7:38 AM [facility] Platelets 192 140 - 450 10*3/mm3 11/28/2024 7:38 AM [facility] Neutrophil % 53.0 42.7 - 76.0 % 11/28/2024 7:38 [facility] Lymphocyte % 30.9 19.6 - 45.3 % 11/28/2024 7:38 AM [facility] Monocyte % 12.1(H) 5.0 - 12.0 % 11/28/2024 7:38 [facility] Eosinophil % 3.4 0.3 - 6.2 % 11/28/2024 7:38 [facility] Basophil % 0.4 0.0 - 1.5 % 11/28/2024 7:38 AM EDT [facility] Immature Grans % 0.2 0.0 - 0.5 % 11/28/2024 7:38 AM EDT [facility] Neutrophils, Absolute 2.50 1.70 - 7.00 10*3/mm3 11/28/2024 7:38 AM EDT [facility] Lymphocytes, Absolute 1.46 0.70 - 3.10 10*3/mm3 11/28/2024 7:38 AM EDT [facility] Monocytes, Absolute 0.57 0.10 - 0.90 10*3/mm3 11/28/2024 7:38 AM EDT [facility] Eosinophils, Absolute 0.16 0.00 - 0.40 10*3/mm3 11/28/2024 7:38 AM EDT [facility] Basophils, Absolute 0.02 0.00 - 0.20 10*3/mm3 11/28/2024 7:38 AM EDT [facility] Immature Grans, Absolute 0.01 0.00 - 0.05 10*3/mm3 11/28/2024 7:38 AM EDT [facility] nRBC 0.0 0.0 - 0.2 /100 WBC 11/28/2024 7:38 AM EDT [facility] Blood Venipuncture / Unknown 11/28/2024 6:22 AM EDT 11/28/2024 7:12 AM EDT us Radha De Souza CHILD DEVELOPMENT INSTRUCTOR LAB BLOOD ORDERABLES Final Re sult [facility]
[address] [place] [address], * (ABNORMAL) Preeclampsia Panel (11/26/2024 1:37 PM EDT) Alkaline Phosphatase 107 39 - 117 U/L 11/26/2024 2:04 PM EDT [facility] ALT (SGPT) 48(H) 1 - 33 U/L 11/26/2024 2:04 PM EDT [facility] AST (SGOT) 23 1 - 32 U/L 11/26/2024 2:04 PM EDT [facility] Creatinine 0.61 0.57 - 1.00 mg/dL 11/26/2024 2:04 PM EDT [facility] Total Bilirubin 0.2 0.0 - 1.2 mg/dL 11/26/2024 2:04 PM EDT [facility] LDH 237(H) 135 - 214 U/L 11/26/2024 2:04 PM EDT [facility] Comment:Specimen hemolyzed. Results may be affected. Uric Acid 6.3(H) 2.4 - 5.7 mg/dL 11/26/2024 2:04 PM EDT [facility] Blood Venipuncture / Unknown 11/26/2024 1:37 PM EDT 11/26/2024 1:44 PM EDT us Radha De Souza CHILD DEVELOPMENT INSTRUCTOR LAB BLOOD ORDERABLES Final Re sult [facility]
[address] [place] [address], * (ABNORMAL) CBC Auto Differential (11/26/2024 4:45 AM EDT) WBC 11.39(H) 3.40 - 10.80 10*3/mm3 11/26/2024 5:41 AM EDT [facility] RBC 3.17(L) 3.77 - 5.28 10*6/mm3 11/26/2024 5:41 AM EDT [facility] Hemoglobin 9.1(L) 12.0 - 15.9 g/dL 11/26/2024 5:41 AM EDT [facility] Hematocrit 28.8(L) 34.0 - 46.6 % 11/26/2024 5:41 AM EDT [facility] MCV 90.9 79.0 - 97.0 fL 11/26/2024 5:41 AM [facility] MCH 28.7 26.6 - 33.0 pg 11/26/2024 5:41 AM [facility] MCHC 31.6 31.5 - 35.7 g/dL 11/26/2024 5:41 AM [facility] RDW 14.5 12.3 - 15.4 % 11/26/2024 5:41 AM [facility] RDW-SD 48.3 37.0 - 54.0 fl 11/26/2024 5:41 AM [facility] MPV 11.5 6.0 - 12.0 fL 11/26/2024 5:41 AM [facility] Platelets 133(L) 140 - 450 10*3/mm3 11/26/2024 5:41 AM [facility] Neutrophil % 76.4(H) 42.7 - 76.0 % 11/26/2024 5:41 AM [facility] Lymphocyte % 14.3(L) 19.6 - 45.3 % 11/26/2024 5:41 AM [facility] Monocyte % 8.3 5.0 - 12.0 % 11/26/2024 5:41 AM [facility] Eosinophil % 0.4 0.3 - 6.2 % 11/26/2024 5:41 AM [facility] Basophil % 0.2 0.0 - 1.5 % 11/26/2024 5:41 AM [facility] Immature Grans % 0.4 0.0 - 0.5 % 11/26/2024 5:41 AM [facility] Neutrophils, Absolute 8.70(H) 1.70 - 7.00 10*3/mm3 11/26/2024 5:41 AM [facility] Lymphocytes, Absolute 1.63 0.70 - 3.10 10*3/mm3 11/26/2024 5:41 [facility] Monocytes, Absolute 0.95(H) 0.10 - 0.90 10*3/mm3 11/26/2024 5:41 AM EDT [facility] Eosinophils, Absolute 0.05 0.00 - 0.40 10*3/mm3 11/26/2024 5:41 AM EDT [facility] Basophils, Absolute 0.02 0.00 - 0.20 10*3/mm3 11/26/2024 5:41 AM EDT [facility] Immature Grans, Absolute 0.04 0.00 - 0.05 10*3/mm3 11/26/2024 5:41 AM EDT [facility] nRBC 0.0 0.0 - 0.2 /100 WBC 11/26/2024 5:41 AM EDT [facility] Blood Venipuncture / Unknown 11/26/2024 4:45 AM EDT 11/26/2024 5:28 AM EDT us Kaylene Brown MD LAB BLOOD ORDERABLES Final Resu lt [facility]
[address] [place] [address], * (ABNORMAL) Blood Gas, Venous, Cord (11/24/2024 11:54 PM EDT) Site Umbilical 11/25/2024 12:01 AM EDT [facility] THERAPY pH, Cord Venous 7.313 7.310 - 7.370 pH Units 11/25/2024 12:01 AM EDT [facility] THERAPY pCO2, Cord Venous 49.9(H) 28.0 - 40.0 mm Hg 11/25/2024 12:01 AM EDT [facility] THERAP[facility] pO2, Cord Venous 18.8(L) 21.0 - 31.0 mm Hg 11/25/2024 12:01 AM EDT [facility] THERAP[facility] HCO3, Cord Venous 25.3(H) 18.6 - 21.4 mmol/L 11/25/2024 12:01 AM EDT [facility] THERAP[facility] Base Excess, Cord Venous -1.6(L) 0.0 - 2.0 mmol/L 11/25/2024 12:01 AM EDT [facility] O2 Sat, Cord Venous 39.4 % 11/25/2024 12:01 AM EDT [facility] Hemoglobin, Blood Gas 15.1 14 - 18 g/dL 11/25/2024 12:01 AM EDT [facility] THER[facility] CO2 Content 26.8 22 - 33 mmol/L 11/25/2024 12:01 AM EDT [facility] THERAP[facility] Temperature 37.0 11/25/2024 12:01 AM EDT [facility] Barometric Pressure for Blood Gas 11/25/2024 12:01 AM EDT [facility] Comment:N/A Modality Room Air 11/25/2024 12:01 AM EDT [facility] THERAP[facility] FIO2 21 % 11/25/2024 12:01 AM EDT [facility] Ventilator Mode 12:01 AM EDT [facility] Rate 0 Breaths/m inute 11/25/2024 12:01 AM EDT [facility] PIP 0 cmH2O 11/25/2024 12:01 AM EDT [facility] Comment:Meter: [id number] Liquid Compounder: [id number] IPAP 0 11/25/2024 12:01 AM EDT [facility] THERAP[facility] EPAP 0 11/25/2024 12:01 AM EDT [facility] O2 Saturation Calculated 11/25/2024 12:01 AM EDT [facility] Comment:Calculated O2 satura tion result not reported at this site. Cord Blood Venous Umbilical cord structure / Unknown 11/24/2024 11:54 PM EDT 11/24/2024 11:54 PM EDT us Bhavya Carter MD LAB BLOOD ORDERABLES Final Resu lt [facility]
[address] * (ABNORMAL) Blood Gas, Arterial, Cord (11/24/2024 11:53 PM EDT) Site Umbilical 11/25/2024 12:00 AM EDT [facility] TH[facility] pH, Cord Arterial 7.27 7.22 - 7.30 pH Units 11/25/2024 12:00 AM EDT [facility] THERAPY pCO2, Cord Arterial 56.9(H) 43.3 - 54.9 mmHg 11/25/2024 12:00 AM EDT [facility] THERAP[facility] pO2, Cord Arterial 13.6 11.5 - 43.3 mmHg 11/25/2024 12:00 AM EDT [facility] THER[facility] HCO3, Cord Arterial 25.9(H) 16.9 - 20.5 mmol/L 11/25/2024 12:00 AM EDT [facility] Base Exc, Cord Arterial -2.3(L) 0.0 - 2.0 mmol/L 11/25/2024 12:00 AM EDT [facility] O2 Sat, Cord Arterial 19.8 % 11/25/2024 12:00 AM EDT [facility] Hemoglobin, Blood Gas 15.6 14 - 18 g/dL 11/25/2024 12:00 AM EDT [facility] CO2 Content 27.6 22 - 33 mmol/L 11/25/2024 12:00 AM EDT [facility] Temperature 37.0 11/25/2024 12:00 AM EDT [facility] Barometric Pressure for Blood Gas 11/25/2024 12:00 AM EDT [facility] Comment:N/A Modality Room Air 11/25/2024 12:00 AM EDT [facility] THERAPY FIO2 21 % 11/25/2024 12:00 AM EDT [facility] Rate 0 Breaths/m inute 11/25/2024 12:00 AM EDT [facility]ER[facility] PIP 0 cmH2O 11/25/2024 12:00 AM EDT [facility] Comment:Meter: [id number] Liquid Compounder: [id number] IPAP 0 11/25/2024 12:00 AM EDT [facility] EPAP 0 11/25/2024 12:00 AM EDT [facility] Note 0 11/25/2024 12:00 AM EDT [facility] Cord Blood Arterial Umbilical cord structure / Unknown 11/24/2024 11:53 PM EDT 11/24/2024 11:53 PM EDT Bhavya Carter MD LAB BLOOD ORDERABLES Final Resu lt [facility]
[address] [place] [address], * Protein / Creatinine Ratio, Urine - Urine, Clean Catch (11/23/2024 11:15 PM EDT) Protein/Creati nine Ratio, Urine 102.9 0.0 - 200.0 mg/G Crea 11/24/2024 9:27 AM EDT [facility] Creatinine, Urine 128.3 mg/dL 11/24/2024 9:27 AM EDT [facility] Total Protein, Urine 13.2 mg/dL 11/24/2024 9:27 AM EDT [facility] Urine Urine specimen obtained by clean catch procedure / Unknown Collection / Unknown 11/23/2024 11:15 PM EDT 11/23/2024 11:45 PM EDT Bhavya Carter MD URINE ORDERABLES Final Result [facility]
[address] [place] [address], * Clements Bulb Cervical Ripening Without Infusion (11/23/2024 9:43 PM EDT) Narrative Adithya Nelson MD - 11/23/2024 9:43 PM EDT Adithya Nelson MD 11/23/2024 9:45 PM Transcervical Clements placed per physician request. FHT's class 1. Patient tolerated well. 24 chinese, 60ml. Adithya Nelson MD 11/23/2024 21:45 EDT Bhavya Carter MD OB GYNE ORDERABLES Final Result * (ABNORMAL) Comprehensive Metabolic Panel (11/23/2024 8:48 PM EDT) [facility] Glucose 116(H) 65 - 99 mg/dL 11/23/2024 10:06 PM EDT [facility] BUN 7.0 6.0 - 20.0 mg/dL 11/23/2024 10:06 PM EDT [facility] Creatinine 0.50(L) 0.57 - 1.00 mg/dL 11/23/2024 10:06 PM EDT [facility] Sodium 137 136 - 145 mmol/L 11/23/2024 10:06 PM EDT [facility] Potassium 4.0 3.5 - 5.2 mmol/L 11/23/2024 10:06 PM EDT [facility] Chloride 107 98 - 107 mmol/L 11/23/2024 10:06 PM EDT [facility] CO2 19.1(L) 22.0 - 29.0 mmol/L 11/23/2024 10:06 PM EDT [facility] Calcium 8.9 8.6 - 10.5 mg/dL 11/23/2024 10:06 PM EDT [facility] Total Protein 5.9(L) 6.0 - 8.5 g/dL 11/23/2024 10:06 PM EDT [facility] Albumin 3.4(L) 3.5 - 5.2 g/dL 11/23/2024 10:06 PM EDT [facility] ALT (SGPT) 90(H) 1 - 33 U/L 11/23/2024 10:06 PM EDT [facility] AST (SGOT) 52(H) 1 - 32 U/L 11/23/2024 10:06 PM EDT [facility] Alkaline Phosphatase 129(H) 39 - 117 U/L 11/23/2024 10:06 PM EDT [facility] Total Bilirubin 0.3 0.0 - 1.2 mg/dL 11/23/2024 10:06 PM EDT [facility] Globulin 2.5 gm/dL 11/23/2024 10:06 PM EDT [facility] Comment:Calculated Result A/G Ratio 1.4 g/dL 11/23/2024 10:06 PM EDT [facility] BUN/Creatinine Ratio 14.0 7.0 - 25.0 11/23/2024 10:06 PM EDT [facility] Anion Gap 10.9 5.0 - 15.0 mmol/L 11/23/2024 10:06 PM EDT [facility] eGFR 133.7 >60.0 mL/min/1.7 3 11/23/2024 10:06 PM EDT [facility] Blood Venipuncture / Unknown 11/23/2024 8:48 PM EDT 11/23/2024 9:26 PM EDT [facility] - 11/23/2024 10:06 PM EDT [...] MD LAB BLOOD ORDERABLES Final Resu lt [facility]
[address] [place] [address], * Uric Acid (11/23/2024 8:48 PM EDT) Uric Acid 5.1 2.4 - 5.7 mg/dL 11/23/2024 10:06 PM EDT [facility] Comment:Falsely depressed re sults may occur on samples drawn from patients receiving N-Acetylcysteine (NAC) or Metamizole. Blood Venipuncture / Unknown 11/23/2024 8:48 PM EDT 11/23/2024 9:26 PM EDT Bhavya Carter MD LAB BLOOD ORDERABLES Final Resu lt Performing Organization Address [facility]/ZIP Co de Phone Number [facility]
[address] [place] [address], * (ABNORMAL) Lactate Dehydrogenase (11/23/2024 8:48 PM EDT) Pathologist [facility] LDH 242(H) 135 - 214 U/L 11/23/2024 10:06 PM EDT [facility] Comment:Specimen hemolyzed. Results may be affected. Blood Venipuncture / Unknown 11/23/2024 8:48 PM EDT 11/23/2024 9:26 PM EDT Bhavya Carter MD LAB BLOOD ORDERABLES Final Resu lt [facility]
[address] [place] [address], * Type & Screen (11/23/2024 8:48 PM EDT) Pathologist [facility] ABO Type O 11/23/2024 10:02 PM EDT [facility] RH type Positive 11/23/2024 10:02 PM EDT [facility] Antibody Screen Negative 11/23/2024 10:02 PM EDT [facility] T&S Expiration Date 11/26/2024 11:59:59 PM 11/23/2024 10:02 PM EDT [facility] Blood Venipuncture / Unknown 11/23/2024 8:48 PM EDT 11/23/2024 9:26 PM EDT us Bhavya Carter MD BLOOD BANK TEST ORDERABLES Edit ed Result - Final Performing Organization Address [facility]/ZIP Co de Phone Number [facility]
[address] [place] [address], [place] [phone] * Treponema pallidum AB w/Reflex RPR (11/23/2024 8:48 PM EDT) Treponemal AB Total Non-Reacti ve Non-React noemi 11/24/2024 2:54 AM EDT [facility] Blood Venipuncture / Unknown 11/23/2024 8:48 PM EDT 11/23/2024 9:27 PM EDT Narrative [facility] - 11/24/2024 2:54 AM EDT Reactive results will reflex RPR testing. us Bhavya Carter MD LAB BLOOD ORDERABLES Final Resu lt Performing Organization Address [facility]/ZIP Co de Phone Number [facility]
[address] [place] [address], [place] [phone] * CBC (No Diff) (11/23/2024 8:48 PM EDT) WBC 9.65 3.40 - 10.80 10*3/mm3 11/23/2024 9:44 PM EDT [facility] RBC 4.22 3.77 - 5.28 10*6/mm3 11/23/2024 9:44 PM EDT [facility] Hemoglobin 12.1 12.0 - 15.9 g/dL 11/23/2024 9:44 PM EDT [facility] Hematocrit 37.0 34.0 - 46.6 % 11/23/2024 9:44 PM EDT [facility] MCV 87.7 79.0 - 97.0 fL 11/23/2024 9:44 PM EDT [facility] MCH 28.7 26.6 - 33.0 pg 11/23/2024 9:44 PM EDT [facility] MCHC 32.7 31.5 - 35.7 g/dL 11/23/2024 9:44 PM EDT [facility] RDW 14.3 12.3 - 15.4 % 11/23/2024 9:44 PM EDT [facility] RDW-SD 45.6 37.0 - 54.0 fl 11/23/2024 9:44 PM EDT [facility] MPV 11.6 6.0 - 12.0 fL 11/23/2024 9:44 PM EDT [facility] Platelets 202 140 - 450 10*3/mm3 11/23/2024 9:44 PM EDT [facility] Blood Venipuncture / Unknown 11/23/2024 8:48 PM EDT 11/23/2024 9:26 PM EDT us Bhavya Carter MD LAB BLOOD ORDERABLES Final Resu lt [facility]
[address] [place] [address], documented in this encounter Visit Diagnoses Diagnosis [...] drug alert, Indications: Surgical ProphylaxisIndications:Surgical Prophylaxis New 11/24/2024 10:48 PM EDT 3,000 mg cetirizine [...] restarted at the initial dose. Group 2 ([place]) Hazardous Drug - Reproductive Risk Only - [...] Shilpa Robles RN)1632 (Given - Provider: Shilpa Robles RN)2245 (Given - Provider: Betsy Dorsey RN) 0442 (Given - Provider: Betsy Dorsey RN)1017 (Given - Provider: Penny Ruiz RN Managing Broker) amitriptyline (ELAVIL) tablet 50 mg 50 mg, [...] Prophylaxis 09 (Given - Provider: Yessica Pizarro RN)220 (Given - Provider: Heydi Armando RN) 0734 (Given - Provider: Shilpa Robles RN)09 (Due - Provider: Roxanne Lyman, JoshD)2029 (Given - Provider: Betsy Dorsey RN) 08 (Given - Provider: Penny Ruiz RN Managing Broker) ibuprofen (ADVIL,MOTRIN) tablet 600 mg(Linked Group 2) [...] Shilpa Robles RN)1301 (Given - Provider: Shilpa Robles, TOOTIE)2029 (Given - Provider: Betsy Dorsey RN) 015 (Given - Provider: Betsy Dorsey RN)0823 (Given - Provider: Penny Ruiz RN Managing Broker)1400 (Due) ketorolac (TORADOL) injection 15 mg (COMPLETED)(Linked Group 2) 15 mg, Intravenous, Every 6 Hours, First dose on Thu11/25/24 at 0800, For 24 hours, Pharmacy to schedule 6 hours from PACU dose. ([facility]) If given for pain, use the following [...] RN) 0733 (Given - Provider: Shilpa Robles RN)0900 (Due) 0823 (Given - Provider: Penny Ruiz RN Managing Broker) vitamin tablet 1 tablet 1 tablet, Oral, Daily, First dose on Thu11/25/24 at 0900 0913 (Given - Provider: Yessica Pizarro RN) 0733 (Given - Provider: Shilpa Robles RN)09 (Due) 0823 (Given - Provider: Penny Ruiz RN Managing Broker) PRN Medication Order 11/26/2024 11/27/2024 11/28/2024 aluminum-magnesium [...] chew capsule. 1257 (Given - Provider: Yessica Pizarro, TOOTIE)1946 (Not Given - Provider: Heydi Armando RN [...] at 0611, For 1 dose, Group 2 ([place]) Hazardous Drug - Reproductive Risk Only - See Handling Guide metoclopramide (REGLAN) tablet 10 mg 10 mg, Oral, As Needed, Vomiting, Heartburn, Starting on Thu11/25/24 at 0611, (SPC) miSOPROStol (CYTOTEC) tablet 600 mcg 600 mcg, Oral, As Needed, Bleeding, Starting on Thu11/25/24 at 0611, Group 2 ([place]) Hazardous Drug - Reproductive Risk Only - [...] 0822 (Given - Provider: Penny Ruiz RN Managing Broker) oxyCODONE (ROXICODONE) immediate release tablet 5 mg(Linked [...] See Alt - Provider: Penny Ruiz RN Managing Broker) oxytocin (PITOCIN) 30 units in 0.9% sodium chloride 500 mL (premix) 125 mL/hr, Intravenous, Once As Needed, PRN Bleeding for 1 Bag, Starting on Thu11/25/24 at 0611, For 1 dose, Consider 2nd agent prophylactically. Only order if patient is at high risk of bleeding and will need an additional bag (2 total). Group 2 ([place]) Hazardous Drug - Reproductive Risk Only - [...] 5-8 documented in this encounter Care Teams Pst Manager Relationship Specialty Start Date End Date Sue Lieberman APRN [address] [place] [id number] PCP - General Internal Medicine 03/09/24 documented as of this encounter
--- OUTSIDE RECORDS SUMMARY | 2024-11-24 12:37 | XMS_ITS | Encounter Summary ---
[facility] [address] [place] [address] Care Team Providers Care Protocol Manager Name Role Phone Sue Lieberman SUB ACUTE CARE NURSE Primary Care Provider [phone] Reason for Visit * Auth/Cert (Routine) Specialty Diagnoses / Procedures Referred By Contac t Referred To Contact Diagnoses Referral ID Status Reason Start Date Expiration Date Visits Re quested Visits Authorized [id number] 1 1 Encounter Details Date Type Department Care Team (Late st Contact Info) Description 11/24/2024 12:37 PM EDT Anesthesia Event [facility] DELIVERY [address] [place] [address] Peggy Torres DO [address] [place] [address] Geraldine Roberts, TOW TRUCK DRIVER [address] [place] [address] Anesthesia Record Procedure Summary Procedure Name Responsible [...] procedure documentation); Removal Date: 11/25/24; Removal Time: 21911/24/241303 by Geraldine Roberts CRNA 11/25/24219 by Jn Millan RN Urethral Catheter Placement Date: 11/24/24; Placement Time: 1341; Inserted by: Omero Lam RN; Type: Silicone; Size: 16 Fr.; Balloon Size: 10 mL; Urine Returned: Yes; Removal Date: 11/25/24; Removal Time: 163011/24/241341 by Heydi Lam RN 11/25/241630 by Yessica Pizarro RN Peripheral IV Placement Date: 11/24/24; Placement Time: 2051; Catheter Size: 18 G; Orientation: Left; Location: Antecubital; Site Prep: Chlorhexidine; Local Anes: None; Technique: Ultrasound guidance; Inserted by: Ruth [place]); Insertion Attempts: 1; Patient Tolerance: Tolerated well; Removal Date: 11/26/24; Removal Time: 14911/24/242051 by Jn Millan RN 11/26/24149 by Mechelle Sierra RN documented in this encounter Social History Tobacco Use Types Packs/Day Years Used Date Smoking Tobacco: Never Passive Smoke Exposure: Never Smokeless Tobacco: Never Alcohol Use Standard Drinks/Week Comments Not Currently 2 (1 standard drink = 0.6 oz pur e alcohol) [facility] Utilities Answer Date Recorded In the past 12 months has [employer], gas, oil, or water [employer] threatened to shut off services in your [...] and heating? Not hard at all 11/23/2024 [facility] - Occupational Stress [...] things needed for daily living? No 11/23/2024 [place] Depression Scale Answer Date Recorded [place] Depression Scale Total 6 11/25/2024 The thought [...] GED or equivalent No 11/23/2024 Preferred Language [place]ots[place] 11/23/2024 PHQ-2 Answer Date Recorded Patient Health [...] Procedure Summary Date: 11/24/24 [facility] / [facility] Anesthesia Start: [...] Procedure Summary Date: 11/24/24 Room / [facility] Anesthesia Start: 1237 Anesthesia Stop: [...] evaluation and timeout performed Prep: Pt Position:sitting Saw Repairer:cap, gloves, mask and sterile barrier Prep:DuraPrep Monitoring:blood [...] (+) obese 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 (+) , Preeclampsia, induced hypertension Other Anesthesia [...] Visit [facility] [address] [facility] [address] [place] [address] Sheldon Godoy, SUB ACUTE CARE NURSE [address] [facility] [address] [place], [place] [address] 09/22/2025 2:45 PM EDT Office Visit [facility] SLEEP MEDICINE [address] [facility] [address] [place] [address] Dave Montaño, SUB ACUTE CARE NURSE [address] [place] [address] documented as of this encounter Procedures Procedure Name Priority Date/Time Associated Diagnosis Comments [facility] EPIDURAL KIT Routine 11/24/2024 1:03 PM EDT documented in this encounter Results * [facility] EPIDURAL KIT (11/24/2024 1:03 PM [...] evaluation and timeout performed Prep: Pt Position:sitting Saw Repairer:cap, gloves, mask and sterile barrier Prep:DuraPrep Monitoring:blood [...] (SUBLIMAZE) injection Epidural, As Needed, Starting on Thu11/24/24 at 1252 Given 11/24/2024 11:23 PM EDT 100 mcg Given 11/24/2024 12:52 PM EDT 100 mcg lactated ringers infusion 125 mL/hr, Intravenous, Continuous, Starting on Thu11/23/24 at 2115, For 12 days New Bag 11/24/2024 11:56 PM EDT New Bag 11/24/2024 11:09 PM EDT Restarted 11/24/2024 8:52 PM EDT 125 mL/hr 125 mL/hr Lidocaine-EPINEPHrine (PF) (XYLOCAINE W/EPI) 1.5 %-1:171613 injection Epidural, As Needed, Starting on Esha 11/24/24 at 1250 Given 11/24/2024 12:50 PM EDT 3 mL Lidocaine-EPINEPHrine (PF) (XYLOCAINE W/EPI) 2 %-1:135837 injection Epidural, As Needed, Starting on Esha [...] mL documented in this encounter Care Teams Protocol Manager Relationship Specialty Start Date End Date Sue Lieberman APRN [address] [address] [place] [address] PCP - General Internal Medicine 03/09/24 documented as of this encounter
--- OUTSIDE RECORDS SUMMARY | 2024-11-24 22:25 | XMS_ITS | Encounter Summary ---
Author Organization [facility] Address [address] [place] [address] Care Team Providers Care Steam Plant Control Room Operator Name Role Phone Sue Lieberman BIRTHING NURSE Primary Care Provider [phone] Reason for Visit * Reason Comments Scheduled Induction * Auth/Cert (Routine) Specialty Diagnoses / Procedures Referred By Contac t Referred To Contact Diagnoses Referral ID Status Reason Start Date Expiration Date Visits Re quested Visits Authorized [id number] 1 1 Encounter Details Date Type Department Care Team (Late st Contact Info) Description 11/24/2024 10:25 PM EDT - 11/24/2024 11:59 PM EDT Surgery [facility] DEL[facility]ERY [address] [place] [id number] Bhavya Carter MD [address] [facility] [address] [place] [address] SECTION PRIMARY Social History Tobacco Use Types Packs/Day Years Used Date Smoking Tobacco: Never Passive Smoke Exposure: Never Smokeless Tobacco: Never Tobacco Cessation:Counseling Given: No Alcohol Use Standard Drinks/Week Comments Not Currently 2 (1 standard drink = 0.6 oz pur e alcohol) [facility] Utilities Answer Date Recorded In the [...] and heating? Not hard at all 11/23/2024 [facility] - Occupational Stress Questionnaire Answer [...] things needed for daily living? No 11/23/2024 [place] Depression Scale Answer Date Recorded [place] Depression Scale Total 6 11/25/2024 The thought [...] equivalent No 11/23/2024 Preferred Language Citizen Of [place] 11/23/2024 PHQ-2 Answer Date Recorded Patient Health Questionnaire-2 Score 0 11/23/2024 Comments No Sex and Gender Information Value Date Recorded Sex Assigned at Female 10/01/2024 2:08 PM EDT Legal Sex Female 10:46 AM EDT Gender Identity Not on file Sexual Orientation Not on file documented as of this encounter Last Filed Vital Signs Vital Sign Reading Time Taken Comments Blood Pressure 119/57 11/24/2024 10:54 PM EDT Pulse 92 11/24/2024 10:54 PM EDT Temperature 37 C (98.6 F) 11/24/2024 9:11 PM EDT Respiratory Rate 16 11/24/2024 9:11 PM EDT Oxygen Saturation 100% 11/24/2024 1:27 PM EDT Inhaled Oxygen Concentration - - [...] 9:02 PM EDT Jn Millan RN * [place] Suicide Severity Rating Scale (Screener/Recent Self-Report) Question Answer Date of Assessment Author 6. Suicidal Behavior (Lifetime) No 9:02 PM EDT Jn Millan RN * Question [...] Date of Discharge: 11/28/2024 Patient: Penny Kebede MR#:[id number] Primary Surgeon/OB: Bhavya Carter MD Discharge Surgeon/OB:same [...] her incision is dry, clean and intact. Infant: female fetus 3510 g (7 lb 11.8 [...] to your nextappointment. Discharge Follow-up with Specialty: BATTERY SERVICE TECHNICIAN/Raul; 1 Week As directed Specialty: BATTERY SERVICE TECHNICIAN/Raul Follow Up: 1 Week Follow Up Details: [...] 11/27/2024 9:08 AM EDT 11/27/2024 Name:Penny Kebede MR#:[id number] PROGRESS NOTE: Post-Op 3 S/P HD:4 Subjective [...] 11/26/2024 8:54 AM EDT 11/26/2024 Name:Penny Kebede MR#:[id number] PROGRESS NOTE: Post-Op 2 S/P HD:3 Subjective [...] 11/26/2024 PLT 133 (L) 11/26/2024 : female in NICU Assessment 1. POD 2, doing well 2. Preeclampsia-- BP wnl on labetalol 100 qd. asymptomatic. PEP pending. Plan: Routine postoperative care Active Problems: None Radha De Souza APRN 11/26/2024 08:54 EDT * Radha De Souza APRN - 11/25/2024 7:24 AM EDT 11/25/2024 Name:Penny Kebede MR#:[id number] PROGRESS NOTE: Post-Op 1 S/P HD:2 Subjective [...] note were not included. History and Physical [place] [facility] Chief Complaint Patient presents with Scheduled [...] hepato-splenomegaly FHT's: reactive and category 1 Cervix: [place]: Contraction are irregular Lab Review Labs: No data reviewed Lab Results (last 24 hours) Procedure Component Value Units Date/Time Protein / Creatinine Ratio, Urine - Urine, Clean Catch [[id number]] Collected: 11/23/24 2315 Specimen: Urine, Clean Catch Updated: 11/24/24 09 Protein/Creatinine Ratio, Urine 102.9 mg/G Crea Creatinine, Urine 128.3 mg/dL Total Protein, Urine 13.2 mg/dL Treponema pallidum AB w/Reflex RPR [[id number]] (Normal) Collected: 11/23/242047 Specimen: Blood Updated: 11/24/24253 Treponemal AB Total Non-Reactive Narrative: Reactive results will reflex RPR testing. Lactate Dehydrogenase [[id number]] (Abnormal) Collected: 11/23/242047 Specimen: Blood Updated: 11/23/242205 LDH 242 U/L Comment: Specimen hemolyzed. Results may be affected. Uric Acid [[id number]] (Normal) Collected: 11/23/242047 Specimen: Blood Updated: 11/23/242205 Uric Acid 5.1 mg/dL Comment: Falsely depressed results may occur on samples drawn from patients receiving N-Acetylcysteine (NAC) or Metamizole. Comprehensive Metabolic Panel [[id number]] (Abnormal) Collected: 11/23/242047 Specimen: Blood Updated: 11/23/242205 [...] race as a factor CBC (No Diff) [[id number]] (Normal) Collected: 11/23/242047 Specimen: Blood Updated: 11/23/242143 [...] and induction of labor. Bhavya Carter MD 510:51 EDT documented in this encounter Procedure Notes * Adithya Nelson MD - 11/23/2024 9:43 PM EDTAssociated Order(s): CELMENTS BULB CERVICAL RIPENING Pre-Procedure Diagnose(s): 37 weeks [...] FHT's class 1. Patient tolerated well. 24 zambian,60ml. Adithya Nelson MD 11/23/2024 21:45 EDT documented in this encounter Nursing Notes * Esdras Sargent RN - 11/28/2024 12:59 PM EDT Goal Outcome Evaluation: D/C home today. Following up with Dr. Carter per her instructions Pt providing self care independently. * Alicia Salas RN - 11/28/2024 8:20 AM EDT 11/28/24 0820 Maternal Information Date of Referral 11/28/24 Person Making Referral storage consultant (courtesy prior to discharge) Maternal Reason for Referral other (see comments) (mother reporting well with pumping; getting drops, encouraged normal for early days, but to continue pumping every three hours around the clock for optimal milk supply; inquired about pump for preemie; encouraged discussing with TRAIN PLANNER.) No other needs/concerns. To call PRN. * Kimberly Nicolas RN - 11/25/2024 6:08 PM EDT 11/25/24 1808 Maternal Information Date of Referral 11/25/24 Person Making Referral storage consultant Maternal Reason for Referral separation from infant Infant Reason for Referral separation from mother [...] Date of Referral 11/25/24 Person Making Referral storage consultant Maternal Reason for Referral no prior experience Infant Reason for Referral 35-37 weeks gestation; infant;other [...] in NICU. Infant has just came down [facility]. Mom laying in chair when I [...] Procedure(s): SECTION PRIMARYLTUI Surgeon: Bhavya Carter MD Wildlife Rehabilitator: Anesthesia: Choice Estimated Blood Loss: 800 cc [...] Info) Description 12/01/2024 3:15 PM EDT Visit [facility] OBGYN [address] [facility] [address] [place] [phone] Sheldon Godoy, BIRTHING NURSE [address] [facility] [address] [place] [address] 09/22/2025 2:45 PM EDT Office Visit [facility] SLEEP MEDICINE [address] [facility] [address] [place] [address] Dave Montaño, BIRTHING NURSE [address] [place] [address] documented as of this encounter Procedures Procedure [...] CBC Auto Differential (11/28/2024 6:22 AM EDT) [facility] WBC 4.72 3.40 - 10.80 10*3/mm3 11/28/2024 7:38 AM EDT [facility] RBC 3.12(L) 3.77 - 5.28 10*6/mm3 11/28/2024 7:38 AM EDT [facility] Hemoglobin 8.9(L) 12.0 - 15.9 g/dL 11/28/2024 7:38 AM EDT [facility] Hematocrit 28.7(L) 34.0 - 46.6 % 11/28/2024 7:38 AM EDT [facility] MCV 92.0 79.0 - 97.0 fL 11/28/2024 7:38 AM EDT [facility] MCH 28.5 26.6 - 33.0 pg 11/28/2024 7:38 AM EDT [facility] MCHC 31.0(L) 31.5 - 35.7 g/dL 11/28/2024 7:[facility] RDW 15.0 12.3 - 15.4 % 11/28/2024 7:38 [facility] RDW-SD 50.3 37.0 - 54.0 fl 11/28/2024 7:38 AM [facility] MPV 10.6 6.0 - 12.0 fL 11/28/2024 7:38 AM [facility] Platelets 192 140 - 450 10*3/mm3 11/28/2024 7:38 AM [facility] Neutrophil % 53.0 42.7 - 76.0 % 11/28/2024 7:38 AM EDT [facility] Lymphocyte % 30.9 19.6 - 45.3 % 11/28/2024 7:38 AM [facility] Monocyte % 12.1(H) 5.0 - 12.0 % 11/28/2024 7:38 AM EDT [facility] Eosinophil % 3.4 0.3 - 6.2 % 11/28/2024 7:38 [facility] Basophil % 0.4 0.0 - 1.5 % 11/28/2024 7:38 AM EDT [facility] Immature Grans % 0.2 0.0 - 0.5 % 11/28/2024 7:38 AM EDT [facility] Neutrophils, Absolute 2.50 1.70 - 7.00 10*3/mm3 11/28/2024 7:38 AM EDT [facility] Lymphocytes, Absolute 1.46 0.70 - 3.10 10*3/mm3 11/28/2024 7:38 AM EDT [facility] Monocytes, Absolute 0.57 0.10 - 0.90 10*3/mm3 11/28/2024 7:38 AM EDT [facility] Eosinophils, Absolute 0.16 0.00 - 0.40 10*3/mm3 11/28/2024 7:38 AM EDT [facility] Basophils, Absolute 0.02 0.00 - 0.20 10*3/mm3 11/28/2024 7:38 AM EDT [facility] Immature Grans, Absolute 0.01 0.00 - 0.05 10*3/mm3 11/28/2024 7:38 AM EDT [facility] nRBC 0.0 0.0 - 0.2 /100 WBC 11/28/2024 7:38 AM EDT [facility] Blood Venipuncture / Unknown 11/28/2024 6:22 AM EDT 11/28/2024 7:12 AM EDT us Radha De Souza BIRTHING NURSE LAB BLOOD ORDERABLES Final Re sult [facility]
[address] [place] [address], * (ABNORMAL) Preeclampsia Panel (11/26/2024 1:37 PM EDT) Alkaline Phosphatase 107 39 - 117 U/L 11/26/2024 2:04 PM EDT [facility] ALT (SGPT) 48(H) 1 - 33 U/L 11/26/2024 2:04 PM EDT [facility] AST (SGOT) 23 1 - 32 U/L 11/26/2024 2:04 PM EDT [facility] Creatinine 0.61 0.57 - 1.00 mg/dL 11/26/2024 2:04 PM EDT [facility] Total Bilirubin 0.2 0.0 - 1.2 mg/dL 11/26/2024 2:04 PM EDT [facility] LDH 237(H) 135 - 214 U/L 11/26/2024 2:04 PM EDT [facility] Comment:Specimen hemolyzed. Results may be affected. Uric Acid 6.3(H) 2.4 - 5.7 mg/dL 11/26/2024 2:04 PM EDT [facility] Blood Venipuncture / Unknown 11/26/2024 1:37 PM EDT 11/26/2024 1:44 PM EDT Radha De Souza BIRTHING NURSE LAB BLOOD ORDERABLES Final Re sult [facility]
[address] [place] [address], * (ABNORMAL) CBC Auto Differential (11/26/2024 4:45 AM EDT) WBC 11.39(H) 3.40 - 10.80 10*3/mm3 11/26/2024 5:41 AM EDT [facility] RBC 3.17(L) 3.77 - 5.28 10*6/mm3 11/26/2024 5:41 AM EDT [facility] Hemoglobin 9.1(L) 12.0 - 15.9 g/dL 11/26/2024 5:41 AM EDT [facility] Hematocrit 28.8(L) 34.0 - 46.6 % 11/26/2024 5:41 AM EDT [facility] MCV 90.9 79.0 - 97.0 fL 11/26/2024 5:41 AM EDT [facility] MCH 28.7 26.6 - 33.0 pg 11/26/2024 5:41 AM [facility] MCHC 31.6 31.5 - 35.7 g/dL 11/26/2024 5:41 AM [facility] RDW 14.5 12.3 - 15.4 % 11/26/2024 5:41 AM [facility] RDW-SD 48.3 37.0 - 54.0 fl 11/26/2024 5:41 AM [facility] MPV 11.5 6.0 - 12.0 fL 11/26/2024 5:41 AM [facility] Platelets 133(L) 140 - 450 10*3/mm3 11/26/2024 5:41 AM [facility] Neutrophil % 76.4(H) 42.7 - 76.0 % 11/26/2024 5:41 AM [facility] Lymphocyte % 14.3(L) 19.6 - 45.3 % 11/26/2024 5:41 [facility] Monocyte % 8.3 5.0 - 12.0 % 11/26/2024 5:41 AM [facility] Eosinophil % 0.4 0.3 - 6.2 % 11/26/2024 5:41 AM [facility] Basophil % 0.2 0.0 - 1.5 % 11/26/2024 5:41 AM [facility] Immature Grans % 0.4 0.0 - 0.5 % 11/26/2024 5:41 AM [facility] Neutrophils, Absolute 8.70(H) 1.70 - 7.00 10*3/mm3 11/26/2024 5:41 AM [facility] Lymphocytes, Absolute 1.63 0.70 - 3.10 10*3/mm3 11/26/2024 5:41 AM [facility] Monocytes, Absolute 0.95(H) 0.10 - 0.90 10*3/mm3 11/26/2024 5:41 AM [facility] Eosinophils, Absolute 0.05 0.00 - 0.40 10*3/mm3 11/26/2024 5:41 AM EDT [facility] Basophils, Absolute 0.02 0.00 - 0.20 10*3/mm3 11/26/2024 5:41 AM EDT [facility] Immature Grans, Absolute 0.04 0.00 - 0.05 10*3/mm3 11/26/2024 5:41 AM EDT [facility] nRBC 0.0 0.0 - 0.2 /100 WBC 11/26/2024 5:41 AM EDT [facility] Blood Venipuncture / Unknown 11/26/2024 4:45 AM EDT 11/26/2024 5:28 AM EDT us Kaylene Brown MD LAB BLOOD ORDERABLES Final Resu lt [facility]
[address] [place] [address], * (ABNORMAL) Blood Gas, Venous, Cord (11/24/2024 11:54 PM EDT) Site Umbilical 11/25/2024 12:01 AM EDT [facility] THERAPY pH, Cord Venous 7.313 7.310 - 7.370 pH Units 11/25/2024 12:01 AM EDT [facility] THERAPY pCO2, Cord Venous 49.9(H) 28.0 - 40.0 mm Hg 11/25/2024 12:01 AM EDT [facility] THERAPY pO2, Cord Venous 18.8(L) 21.0 - 31.0 mm Hg 11/25/2024 12:01 AM EDT [facility] RES[facility]IR[facility] THERAPY HCO3, Cord Venous 25.3(H) 18.6 - 21.4 mmol/L 11/25/2024 12:01 AM EDT [facility] RES[facility] THERAPY Base Excess, Cord Venous -1.6(L) 0.0 - 2.0 mmol/L 11/25/2024 12:01 AM EDT [facility] THERAPY O2 Sat, Cord Venous 39.4 % 11/25/2024 12:01 AM EDT [facility] THERAPY Hemoglobin, Blood Gas 15.1 14 - 18 g/dL 11/25/2024 12:01 AM EDT [facility] THERAPY CO2 Content 26.8 22 - 33 mmol/L 11/25/2024 12:01 AM EDT [facility] THERAPY Temperature 37.0 11/25/2024 12:01 AM EDT [facility] THERAPY Barometric Pressure for Blood Gas 11/25/2024 12:01 AM EDT [facility]ERAP[facility] Comment:N/A Modality Room Air 11/25/2024 12:01 AM EDT [facility] THERAPY FIO2 21 % 11/25/2024 12:01 AM EDT [facility] THERAPY Ventilator Mode 12:01 AM EDT [facility] THERAPY Rate 0 Breaths/m inute 11/25/2024 12:01 AM EDT [facility] THERAPY PIP 0 cmH2O 11/25/2024 12:01 AM EDT [facility] THERAPY Comment:Meter: [id number] Lock Corner Machine Operator: [id number] IPAP 0 11/25/2024 12:01 AM EDT [facility] THERAPY EPAP 0 11/25/2024 12:01 AM EDT [facility] THERAPY O2 Saturation Calculated 11/25/2024 12:01 AM EDT [facility] THERAPY Comment:Calculated O2 satura tion result not reported at this site. Cord Blood Venous Umbilical cord structure / Unknown 11/24/2024 11:54 PM EDT 11/24/2024 11:54 PM EDT us Bhavya Carter MD LAB BLOOD ORDERABLES Final Resu lt [facility]IR[facility] THERAPY
[address] [place] [address], [place] * (ABNORMAL) Blood Gas, Arterial, Cord (11/24/2024 11:53 PM EDT) Site Umbilical 11/25/2024 12:00 AM EDT [facility] THERAPY pH, Cord Arterial 7.27 7.22 - 7.30 pH Units 11/25/2024 12:00 AM EDT [facility] THERAPY pCO2, Cord Arterial 56.9(H) 43.3 - 54.9 mmHg 11/25/2024 12:00 AM EDT [facility] THERAPY pO2, Cord Arterial 13.6 11.5 - 43.3 mmHg 11/25/2024 12:00 AM EDT [facility] THERAPY HCO3, Cord Arterial 25.9(H) 16.9 - 20.5 mmol/L 11/25/2024 12:00 AM EDT [facility] THERAPY Base Exc, Cord Arterial -2.3(L) 0.0 - 2.0 mmol/L 11/25/2024 12:00 AM EDT [facility] THERAPY O2 Sat, Cord Arterial 19.8 % 11/25/2024 12:00 AM EDT [facility] THERAPY Hemoglobin, Blood Gas 15.6 14 - 18 g/dL 11/25/2024 12:00 AM T [facility] THERAPY CO2 Content 27.6 22 - 33 mmol/L 11/25/2024 12:00 AM [facility] THERAPY Temperature 37.0 11/25/2024 12:00 AM [facility] THERAPY Barometric Pressure for Blood Gas 11/25/2024 12:00 AM [facility] THERAPY Comment:N/A Modality Room Air 11/25/2024 12:00 AM [facility] THERAPY FIO2 21 % 11/25/2024 12:[facility] Rate 0 Breaths/m inute 11/25/2024 12:00 AM [facility] THERAPY PIP 0 cmH2O 11/25/2024 12:00 AM [facility] THERAPY Comment:Meter: [id number] Lock Corner Machine Operator: [id number] IPAP 0 11/25/2024 12:00 AM EDT [facility] THERAPY EPAP 0 11/25/2024 12:00 AM EDT [facility] THERAPY Note 0 11/25/2024 12:00 AM EDT [facility] THERAP[facility] Cord Blood Arterial Umbilical cord structure / Unknown 11/24/2024 11:53 PM EDT 11/24/2024 11:53 PM EDT Bhavya Carter MD LAB BLOOD ORDERABLES Final Resu lt [facility] THERAPY
[address] [place] [address], * Protein / Creatinine Ratio, Urine - Urine, Clean Catch (11/23/2024 11:15 PM EDT) Protein/Creati nine Ratio, Urine 102.9 0.0 - 200.0 mg/G Crea 11/24/2024 9:27 AM EDT [facility] Creatinine, Urine 128.3 mg/dL 11/24/2024 9:27 AM EDT [facility] Total Protein, Urine 13.2 mg/dL 11/24/2024 9:27 AM EDT [facility] Urine Urine specimen obtained by clean catch procedure / Unknown Collection / Unknown 11/23/2024 11:15 PM EDT 11/23/2024 11:45 PM EDT Bhavya Carter MD URINE ORDERABLES Final Result [facility]
[address] [place] [address], * Clements Bulb Cervical Ripening Without Infusion (11/23/2024 9:43 PM EDT) Narrative Adithya Nelson MD - 11/23/2024 9:43 PM EDT Adithya Nelson MD 11/23/2024 9:45 PM Transcervical Clements placed per physician request. FHT's class 1. Patient tolerated well. 24 zambian, 60ml. Adithya Nelson MD 11/23/2024 21:45 EDT Bhavya Carter MD OB GYNE ORDERABLES Final Result * (ABNORMAL) Comprehensive Metabolic Panel (11/23/2024 8:48 PM EDT) Glucose 116(H) 65 - 99 mg/dL 11/23/2024 10:06 PM EDT [facility] BUN 7.0 6.0 - 20.0 mg/dL 11/23/2024 10:06 PM EDT [facility] Creatinine 0.50(L) 0.57 - 1.00 mg/dL 11/23/2024 10:06 PM EDT [facility] Sodium 137 136 - 145 mmol/L 11/23/2024 10:06 PM EDT [facility] Potassium 4.0 3.5 - 5.2 mmol/L 11/23/2024 10:06 PM EDT [facility] Chloride 107 98 - 107 mmol/L 11/23/2024 10:06 PM EDT [facility] CO2 19.1(L) 22.0 - 29.0 mmol/L 11/23/2024 10:06 PM EDT [facility] Calcium 8.9 8.6 - 10.5 mg/dL 11/23/2024 10:06 PM EDT [facility] Total Protein 5.9(L) 6.0 - 8.5 g/dL 11/23/2024 10:06 PM EDT [facility] Albumin 3.4(L) 3.5 - 5.2 g/dL 11/23/2024 10:06 PM EDT [facility] ALT (SGPT) 90(H) 1 - 33 U/L 11/23/2024 10:06 PM EDT [facility] AST (SGOT) 52(H) 1 - 32 U/L 11/23/2024 10:06 PM EDT [facility] Alkaline Phosphatase 129(H) 39 - 117 U/L 11/23/2024 10:06 PM EDT [facility] Total Bilirubin 0.3 0.0 - 1.2 mg/dL 11/23/2024 10:06 PM EDT [facility] Globulin 2.5 gm/dL 11/23/2024 10:06 PM EDT [facility] Comment:Calculated Result A/G Ratio 1.4 g/dL 11/23/2024 10:06 PM EDT [facility] BUN/Creatinine Ratio 14.0 7.0 - 25.0 11/23/2024 10:06 PM EDT [facility] Anion Gap 10.9 5.0 - 15.0 mmol/L 11/23/2024 10:06 PM EDT [facility] eGFR 133.7 >60.0 mL/min/1.7 3 11/23/2024 10:06 PM EDT [facility] Blood Venipuncture / Unknown 11/23/2024 8:48 PM EDT 11/23/2024 9:26 PM EDT Narrative [facility] - 11/23/2024 10:06 PM EDT GFR [...] MD LAB BLOOD ORDERABLES Final Resu lt [facility]
[address] [place] [address], * Uric Acid (11/23/2024 8:48 PM EDT) Uric Acid 5.1 2.4 - 5.7 mg/dL 11/23/2024 10:06 PM EDT [facility] Comment:Falsely depressed re sults may occur on samples drawn from patients receiving N-Acetylcysteine (NAC) or Metamizole. Blood Venipuncture / Unknown 11/23/2024 8:48 PM EDT 11/23/2024 9:26 PM EDT Bhavya Carter MD LAB BLOOD ORDERABLES Final Resu lt Performing Organization Address [facility] Co de Phone Number [facility]
[address] [place] [address], * (ABNORMAL) Lactate Dehydrogenase (11/23/2024 8:48 PM EDT) Pathologist [facility] LDH 242(H) 135 - 214 U/L 11/23/2024 10:06 PM EDT [facility] Comment:Specimen hemolyzed. Results may be affected. Blood Venipuncture / Unknown 11/23/2024 8:48 PM EDT 11/23/2024 9:26 PM EDT Bhavya Carter MD LAB BLOOD ORDERABLES Final Resu lt Performing Organization Address [facility] Co de Phone Number [facility]
[address] [place] [address], * Type & Screen (11/23/2024 8:48 PM EDT) Pathologist [facility] ABO Type O 11/23/2024 10:02 PM EDT [facility] RH type Positive 11/23/2024 10:02 PM EDT [facility] Antibody Screen Negative 11/23/2024 10:02 PM EDT [facility] T&S Expiration Date 11/26/2024 11:59:59 PM 11/23/2024 10:02 PM EDT [facility] Blood Venipuncture / Unknown 11/23/2024 8:48 PM EDT 11/23/2024 9:26 PM EDT us Bhavya Carter MD BLOOD BANK TEST ORDERABLES Edit ed Result - Final [facility]
[address] [place] [address], * Treponema pallidum AB w/Reflex RPR (11/23/2024 8:48 PM EDT) Pathologist [facility] Treponemal AB Total Non-Reacti ve Non-React noemi 11/24/2024 2:54 AM EDT [facility] Blood Venipuncture / Unknown 11/23/2024 8:48 PM EDT 11/23/2024 9:27 PM EDT Narrative [facility] - 11/24/2024 2:54 AM EDT Reactive results will reflex RPR testing. us Bhavya Carter MD LAB BLOOD ORDERABLES Final Resu lt [facility]
[address] [place] [address], [place] [phone] * CBC (No Diff) (11/23/2024 8:48 PM EDT) WBC 9.65 3.40 - 10.80 10*3/mm3 11/23/2024 9:44 PM EDT [facility] RBC 4.22 3.77 - 5.28 10*6/mm3 11/23/2024 9:44 PM EDT [facility] Hemoglobin 12.1 12.0 - 15.9 g/dL 11/23/2024 9:44 PM EDT [facility] Hematocrit 37.0 34.0 - 46.6 % 11/23/2024 9:44 PM EDT [facility] MCV 87.7 79.0 - 97.0 fL 11/23/2024 9:44 PM EDT [facility] MCH 28.7 26.6 - 33.0 pg 11/23/2024 9:44 PM EDT [facility] MCHC 32.7 31.5 - 35.7 g/dL 11/23/2024 9:44 PM EDT [facility] RDW 14.3 12.3 - 15.4 % 11/23/2024 9:44 PM EDT [facility] RDW-SD 45.6 37.0 - 54.0 fl 11/23/2024 9:44 PM EDT [facility] MPV 11.6 6.0 - 12.0 fL 11/23/2024 9:44 PM EDT [facility] Platelets 202 140 - 450 10*3/mm3 11/23/2024 9:44 PM EDT [facility] Blood Venipuncture / Unknown 11/23/2024 8:48 PM EDT 11/23/2024 9:26 PM EDT us Bhavya Carter MD LAB BLOOD ORDERABLES Final Resu lt [facility]
[address] [place] [address], documented in this encounter Visit Diagnoses Not on filedocumented in this encounter Admitting Diagnoses Diagnosis documented [...] Given 11/25/2024 8:29 PM EDT 50 mg calcium carbonate (TUMS) chewable tablet 500 mg (200 mg elemental) 1 tablet, Oral, Every 4 Hours PRN, Indigestion, Heartburn, Starting on Thu11/25/24 at 0611, One tablet contains 200 mg elemental calcium. Take with food. docusate sodium (COLACE) capsule 100 mg 100 [...] Subcutaneous, Every 12 Hours, First dose on Thu11/26/24 at 0900, Request Pharmacy verify spinal/epidural time [...] Given 11/27/2024 8:30 PM EDT 600 mg labetalol (NORMODYNE) tablet 100 mg 100 mg, Oral, Daily, First dose on Thu11/25/24 at 0900, Hold for SBP less than 100, DBP less than 60, or heart rate less than 50. If a dose is held, please contact the provider. Given 11/28/2024 8:23 AM EDT 100 mg Given 11/27/2024 7:33 AM EDT 100 mg Given 11/26/2024 9:14 AM EDT 100 mg oxyCODONE (ROXICODONE) immediate release tablet 10 [...] = Pain Score of 7-10, CPOT 5-8 vitamin tablet 1 tablet 1 tablet, Oral, Daily, First dose on Thu11/25/24 at 0900 Given 11/28/2024 8:23 AM EDT 1 tablet Given 11/27/2024 7:33 AM EDT 1 tablet Given 11/26/2024 9:13 AM EDT 1 tablet simethicone (MYLICON) chewable tablet 80 mg 80 mg, Oral, 4 Times Daily PRN, Flatulence, Starting on Thu11/25/24 at 0611 Given 11/27/2024 7:33 AM EDT 80 mg Given 11/26/2024 3:22 PM EDT 80 mg Given 11/26/2024 9:14 AM EDT 80 mg documented in this encounter Active and Recently [...] RN)1017 (Given - Provider: Penny Ruiz RN [employer]) amitriptyline (ELAVIL) tablet 50 mg 50 mg, Oral, Nightly, First dose on Thu11/25/24 at 2100 2205 (Given - Provider: Heydi Armando RN) 2029 (Given - Provider: Betsy Dorsey RN) enoxaparin sodium (LOVENOX) syringe 40 mg 40 mg, Subcutaneous, Every 12 Hours, First dose on 11/26/24 at 0900, Request Pharmacy verify spinal/epidural time and start the injection 24 hour from Spinal placement or Epidural cath removal Give subcutaneous in abdomen only. Do not massage site after injection., Indications: VTE Prophylaxis 0913 (Given - Provider: Yessica Pizarro RN)220 (Given - Provider: Heydi Armando RN) 0734 (Given - Provider: Shilpa Robles RN)09 (Due - Provider: Roxanne Lyman, JoshD)2029 (Given - Provider: Betsy Dorsey RN) 08 (Given - Provider: Penny Ruiz RN [employer] Underwriter) ibuprofen (ADVIL,MOTRIN) tablet 600 mg(Linked Group 2) [...] Yessica Pizarro RN)1946 (Given - Provider: Heydi Armando, TOOTIE) 0235 (Given - Provider: Heydi Armando RN)0733 (Given - Provider: Shilpa Robles RN)1301 (Given - Provider: Shilpa Robles RN)2030 (Given - Provider: Betsy Dorsey RN) 0150 (Given - Provider: Betsy Dorsey RN)0823 (Given - Provider: Penny Ruiz RN Sba Underwriter)1400 (Due) ketorolac (TORADOL) injection 15 mg (COMPLETED)(Linked Group 2) 15 mg, Intravenous, Every 6 Hours, First dose on Thu11/25/24 at 0800, For 24 hours, Pharmacy to schedule 6 hours from PACU dose. ([facility]) If given for pain, use the following [...] 0823 (Given - Provider: Penny Ruiz RN Sba Underwriter) vitamin tablet 1 tablet 1 tablet, Oral, Daily, First dose on Thu11/25/24 at 0900 0913 (Given - Provider: Yessica Pizarro RN) 0733 (Given - Provider: Shilpa Robles RN)0900 (Due) 0823 (Given - Provider: Penny Ruiz RN Sba Underwriter) PRN Medication Order 11/26/2024 11/27/2024 11/28/2024 aluminum-magnesium [...] at 0611, For 1 dose, Group 2 ([place]) Hazardous Drug - Reproductive Risk Only - See Handling Guide metoclopramide (REGLAN) tablet 10 mg 10 mg, Oral, As Needed, Vomiting, Heartburn, Starting on Thu11/25/24 at 0611, (SP[facility]) miSOPROStol (CYTOTEC) tablet 600 mcg 600 mcg, Oral, As Needed, Bleeding, Starting on Thu11/25/24 at 0611, Group 2 ([place]) Hazardous Drug - Reproductive Risk Only - [...] 5-8 0235 (Given - Provider: Heydi Armando RN)222 (Given - Provider: Betsy Dorsey RN) 0822 (Given - Provider: Penny Ruiz RN Sba Underwriter) oxyCODONE (ROXICODONE) immediate release tablet 5 mg(Linked [...] Given: See Alt - Provider: Heydi Armando RN)222 (Not Given: See Alt - Provider: Betsy Dorsey RN) 0822 (Not Given: See Alt - Provider: Penny Ruiz RN Sba Underwriter) oxytocin (PITOCIN) 30 units in 0.9% sodium chloride 500 mL (premix) 125 mL/hr, Intravenous, Once As Needed, PRN Bleeding for 1 Bag, Starting on Thu11/25/24 at 0611, For 1 dose, Consider 2nd agent prophylactically. Only order if patient is at high risk of bleeding and will need an additional bag (2 total). Group 2 ([place]) Hazardous Drug - Reproductive Risk Only - See Handling Guide simethicone (MYLICON) chewable tablet 80 mg 80 mg, Oral, 4 Times Daily PRN, Flatulence, Starting on Thu11/25/24 at 0611 0914 (Given - Provider: Yessica Pizarro, RN)1522 (Given - Provider: Yessica Pizarro, RN) 0733 (Given - Provider: Shilpa Robles RN) [...] 5-8 documented in this encounter Care Teams [employer] Control Room Operator Relationship Specialty Start Date End Date Sue Lieberman APRN [address] [place] [address] PCP - General Internal Medicine 03/09/24 documented as of this encounter
[2024-11-29 15:23] LABS: Coronavirus 19, PCR Not Detected (NotDetected); Influenza A, PCR Not Detected (NotDetected); Influenza B, PCR Not Detected (NotDetected)
--- OUTSIDE RECORDS SUMMARY | 2024-11-30 12:34 | XMS_ITS | Clinical Summary ---
[facility] Address [address] [place] [address] Care Team Providers Care Account Planner Name Role Phone MioSue ALEE Primary Care Provider [phone] Allergies Active Allergy Reactions Criticality Noted Date Comments Penicillins Unknown - Low Severity Low 09/12/2020 Childhood allergy - unsure of reaction Medications montelukast (SINGULAIR) 10 MG tablet Take 1 tablet by mouth Daily. 30 tablet 9 05/05/19 25 026 Active amitriptyline (ELAVIL) 50 MG tablet Take 1 tablet by mouth Every Night. Active labetalol (NORMODYNE) 200 MG tablet Take 0.5 tablets by mouth Daily. 10/19/19 25 Active ibuprofen (ADVIL,MOTRIN) 600 MG tablet Take 1 tablet by mouth Every 6 (Six) Hours. 90 tablet 5 10:44 AM EDT 11/29/19 25 Active oxyCODONE (ROXICODONE) 5 MG immediate release tabletIndications : delivery delivered,Postpar hannah care and examination immediately after delivery Take 1 tablet by mouth Every 6 (Six) Hours As Needed for Moderate Pain for up to 3 days. 12 tablet 5 10:44 AM EDT 11/29/19 25 025 Active docusate sodium 100 MG capsule Take 1 capsule by mouth 2 (Two) Times a Day As Needed for Constipatio n. 60 capsule 5 10:44 AM EDT 07/28/20 25 Active Ferrous Sulfate (Iron) 90 (18 Fe) MG tablet Take 1 tablet by mouth Daily. 60 tablet 11/29/19 Active cetirizine (zyrTEC) 10 MG tablet Take 1 tablet by mouth Daily. 025 Discontinued docusate sodium (Colace) 100 MG capsuleIndication s:Iron deficiency anemia during Take 1 capsule by mouth 2 (Two) Times a Day. 60 capsule 2 09/26/19 025 Discontinued(S top Taking at Discharge) aspirin 81 MG chewable tablet Chew 1 tablet Daily. 025 Discontinued ondansetron ODT (ZOFRAN-ODT) 4 MG disintegrating tabletIndications :Nausea and vomiting in Take 1 tablet by mouth Every 8 (Eight) Hours As Needed for Nausea or Vomiting. 10 tablet 10/26/19 025 Discontinued Ferrous Sulfate (IRON PO) Take by mouth Daily. 025 Discontinued Active Problems Problem Noted Date Diagnosed Date delivery delivered 11/28/2024 care and examination immediately afte r delivery 11/28/2024 11/23/2024 Elevated liver enzymes 10/28/2024 Antepartum mild preeclampsia 10/20/2024 Assessment & Plan (11/01/2024 12:37 PM EDT): Blood pressure well controlled Labs stable (has [...] up with MFM in 2 weeks scheduled Morbid obesity with BMI of 50.0-59.9, adult 07/03 07/28/2024 Teratogen exposure in current 07/29/19 Assessment & Plan (07/28/2024 1:43 PM EDT): Patient referred for completion of anomaly scan. Her is complicated by teratogen use. Patient takes Elavil at bedtime for migraine prophylaxis. Additionally patient has sleep apnea and uses CPAP machine. Ultrasound today demonstrates a normally grown fetus with no abnormality seen. There were no markers for trisomy. Unfortunately the anatomic survey could not be completed due to maternal habitus and position. Amniotic fluid volume and cervical length were normal. Patient was counseled regarding amitriptyline use in . There does not appear to be an increased risk for congenital anomalies with the use of this medication. If the medications used in the third trimester the pediatricians need to be aware as there is a small risk of withdrawal symptoms. We additionally counseled the patient regarding her CPAP and noted to her that it is important that she continue use her CPAP machine in as repeated bouts of hypoxia are not beneficial to the fetus. Obesity affecting , antepartum 05/05/19 Asthma Resolved Problems Problem Noted Date Diagnosed Date Resolved Date Severe preeclampsia 10/11/2024 10/15/19 Gestational hypertension, antepartum 09/21/2024 11/03/2024 Overview (10/20/2024): [ ] 2 ASA 81MG until delivery [ ] Twice weekly NST's 32 weeks until delivery [ ] Growth US q4 weeks [ ] 24 hour urine [ ] Consider weekly PEP [ ] Consider early delivery at 37 weeks Encounters Date Type Department Care Team Description 11/29/2024 Maternal Screening [facility] [address] [place] [address] Loretta Antonio RN 11/24/2024 10:25 PM EDT - 11/24/2024 11:59 PM EDT Surgery [facility] [address] [place] [address] Karan Mayo MD SECTION PRIMARY 11/24/2024 12:37 PM EDT Anesthesia Event [facility] [address] [facility] [place] [address] Peggy Torres DO Barker, Gina, SABIHA 11/23/2024 8:08 PM EDT - 11/28/2024 3:35 PM EDT Hospital Encounter [facility] [address] [place] [address] Karan Mayo MD delivery delivered (Primary Dx); care and examination immediately after delivery Discharge Disposition: Home or Self Care 11/23/2024 8:00 PM EDT - 11/23/2024 11:59 PM EDT Hospital Encounter [facility] DEL[facility] PROCEDURES [address] [place] [address] Discharge Disposition: Home or Self Care 11/23/2024 Travel 11/23/2024 Prep for Surgery [facility] [address] [place] [address] Karan Mayo MD 11/22/2024 1:50 PM EDT Routine [facility] OBGYN [address] [address] Karan Mayo MD GA: 36w6d 11/22/2024 Travel 11/18/2024 9:30 AM EDT Routine [facility] OBGYN [address] [place] [address] Karan Mayo MD GA: 36w2d 11/18/2024 Travel 11/16/2024 Telephone [facility] OBGYN [address] [address] Karan Mayo MD 11/16/2024 Results Follow-Up [facility] [address] [facility] [address] Karan Mayo MD 11/15/2024 7:10 PM EDT Lab [facility] [address] [facility] [place] [address] 11/15/2024 1:00 PM EDT Routine [facility] OBGYN [address] [facility] [address] [place] [address] Karan Mayo MD GA: 35w6d 11/15/2024 11:15 AM EDT Office Visit [facility] [address] [facility] [address] [place] [address] Joaquín Barrientos MD Antepartum mild preeclampsia (Primary Dx) 11/15/2024 10:58 AM EDT - 11/15/2024 11:59 PM EDT Hospital Encounter [facility] US PER DIAG CTR [address] [place] [address] Elevated liver enzymes; Antepartum mild preeclampsia Discharge Disposition: Home or Self Care 11/15/2024 Travel 11/14/2024 Results Follow-Up [facility] OBGYN [address] [place] [address] Dayanna Marvin, VENEER DRIER TAILER 11/11/2024 8:45 AM EDT Routine [facility] OBGYN [address] [place] [address] Dayanna Marvin, VENEER DRIER TAILER GA: 35w2d 11/11/2024 Travel 11/08/2024 8:00 AM EDT Routine [facility] OBGYN [address] [address] Karan Mayo MD GA: 34w6d 11/08/2024 Travel 11/03/2024 2:00 PM EDT Routine [facility] OBGYN [address] [place] [address] Karan Mayo MD GA: 34w1d 11/03/2024 Travel 11/02/2024 Results Follow-Up [facility] [facility] [address] [place] [address] Rosalinda Uriostegui, VENEER DRIER TAILER 10/31/2024 10:30 AM EDT Routine [facility] [address] [facility] [address] [place] [address] Rosalinda Uriostegui APRN GA: 33w5d 10/31/2024 9:45 AM EDT Office Visit [facility] MATERNAL MEDICINE [address] [facility] [address] [place] [address] Britt Paul MD Elevated liver enzymes (Primary Dx); Antepartum mild preeclampsia 10/31/2024 9:23 AM EDT - 10/31/2024 11:59 PM EDT Hospital Encounter [facility] [address] [place] [address] Karan Mayo MD Discharge Disposition: Home or Self Care 10/31/2024 Results Follow-Up [facility] [address] [facility] [place] [address] [place] [address] Rosalinda Uriostegui APRN 10/31/2024 Travel 10/28/2024 10:30 AM EDT Routine [facility] OBGYN [address] [facility] [address] [place] [address] Rosalinda Uriostegui APRN GA: 33w2d 10/28/2024 Results Follow-Up [facility] [address] [facility] [place] [address] [place] [address] Shilpa De Leon APRN 10/28/2024 Travel 10/25/2024 9:15 AM EDT Routine [facility] [address] [facility] [place] [place] [address] Shilpa De Leon APRN GA: 32w6d 10/25/2024 Travel 10/21/2024 Telephone [facility] [address] [facility] [place] [address] [place] [address] Karan Mayo MD FMLA ERROR 10/20/2024 4:00 PM EDT Routine [facility] O[facility]YN [address] [facility] [place] [address] [place] [address] Karan Mayo MD GA: 32w1d 10/19/2024 9:10 PM EDT - 10/19/2024 11:46 PM EDT Hospital Encounter [facility] [address] [place] [address] Karan Mayo MD Allen, George Sea III, MD Discharge Disposition: Home or Self Care 10/19/2024 Travel 10/19/2024 Results Follow-Up [facility] [address] [facility] [address] [place] [address] Karan Mayo MD 10/19/2024 Results Follow-Up [facility] [address] [facility] [address] [place] [address] Shilpa De Leon APRN 10/18/2024 10:20 AM EDT Routine [facility] [address] [facility] [address] [place] [address] Shilpa De Leon APRN GA: 31w6d 10/18/2024 Travel 10/14/2024 Telephone [facility] [address] [facility] [address] [place] [address] Karan Mayo MD MAYO- OB FOLLOW UP 10/10/2024 4:15 PM EDT - 10/14/2024 2:11 PM EDT Hospital Encounter [facility] [address] [place] [address] Karan Mayo MD Gestational hypertension, antepartum (Primary Dx); Pre-eclampsia in third trimester Discharge Disposition: Home or Self Care 10/10/2024 Travel 10/10/2024 Prep for Surgery [facility] [address] [place] [address] De Leon, Shilpa, VENEER DRIER TAILER Pre-eclampsia in third trimester (Primary Dx) 10/10/2024 Telephone [facility] OBGYN [address] [place] [address] Karan Mayo MD 10/07/2024 8:40 AM EDT Routine [facility] OBGYN [address] [place] [address] Karan Mayo MD GA: 30w2d 10/07/2024 Travel 10/06/2024 Results Follow-Up [facility] [place] [address] Dayanna Marvin, VENEER DRIER TAILER 10/03/2024 10:15 AM EDT Routine [facility] OBGYN [address] [place] [address] Dayanna Marvin, VENEER DRIER TAILER GA: 29w5d 10/03/2024 Travel 09/30/2024 Results Follow-Up [facility] [place] [address] Dayanna Marvin, VENEER DRIER TAILER 09/29/2024 9:15 AM EDT Routine [facility] OBGYN [address] [place] [address] Dayanna Marvin, VENEER DRIER TAILER GA: 29w1d 09/29/2024 Travel 09/25/2024 Results Follow-Up [facility] OBGYN [address] [place] [address] Rosalinda Uriostegui, ALEE 09/23/2024 1:30 PM EDT Routine [facility] OBGYN [address] [place] [address] Rosalinda Uriostegui, VENEER DRIER TAILER GA: 28w2d 09/23/2024 Travel 09/23/2024 Telephone [facility] [address] [facility] [facility] [address] [place] [address] LYNNE SIMMS - LOW BP ON NEW BP MED 09/22/2024 Results Follow-Up [facility] [address] [facility] [address] [place] [address] Karan Mayo MD 09/21/2024 8:20 AM EDT Routine [facility] O[facility] [address] [facility] [address] [place] [address] Karan Mayo MD GA: 09/21/2024 Travel 09/20/2024 Results Follow-Up [facility] OBGYN [address] [place] [address] Dayanna Marvin APRN 09/19/2024 9:45 AM EDT Routine [facility] OBGYN [address] [place] [address] Dayanna Marvin APRN GA: 09/19/2024 Travel 09/16/2024 2:45 PM EDT Office Visit [facility] SLEEP MEDICINE [address] [facility] [address] [place] [address] Dave Montaño, ALEE Obstructive sleep apnea, adult (Primary Dx); Morbid (severe) obesity due to excess calories 09/16/2024 Results Follow-Up [facility] OBGYN [address] [place] [address] Radha De Souza APRN 09/16/2024 Travel 09/14/2024 1:00 PM EDT Routine [facility] OBGYN [address] [place] [address] Radha De Souza APRN [place]: 09/14/2024 Travel 09/13/2024 Telephone [facility] O[facility]YN [address] [facility] [address] [place] [address] Karan Mayo MD Advice Only from Last 3 Months Immunizations Immunization Administration Dates Next Due Hep A, 2 Dose 12/02/2017 Meningococcal MCV4P (Menactra) 12/02/2017 Family History Medical History Relation Name Comments Hypertension Father Hypertension Maternal Aunt Hypertension Maternal Grandmother Hypertension Mother Hypertension Paternal Grandfather Hypertension Paternal Grandmother Breast cancer Neg Hx Colon cancer Neg Hx Ovarian cancer Neg Hx Uterine cancer Neg Hx Relation Name Status Comments Father Maternal Aunt Maternal Grandmother Mother Paternal Grandfather Paternal Grandmother Social History Tobacco Use Types Packs/Day Years Used Date Smoking Tobacco: Never Passive Smoke Exposure: Never Smokeless Tobacco: Never Tobacco Cessation:Counseling Given: No Alcohol Use Standard Drinks/Week Comments Not Currently 2 (1 standard drink = 0.6 oz pur e alcohol) [facility] [employer] Answer Date Recorded In the past 12 months has [employer], gas, oil, or water Dailyevent threatened to shut off services in your [...] and heating? Not hard at all 11/23/2024 [facility] [place] of Occupat ional Health - Occupational Stress [...] things needed for daily living? No 11/23/2024 Wickett Depression Scale Answer Date Recorded Wickett Depression Scale Total 6 11/25/2024 The thought [...] GED or equivalent No 11/23/2024 Preferred Language Qatari 11/23/2024 PHQ-2 Answer Date Recorded Patient Health Questionnaire-2 Score 0 11/23/2024 Comments No Sex and Gender Information Value Date Recorded Sex Assigned at Female 10/01/2024 2:08 PM EDT Legal Sex Female 10:46 AM EDT Gender Identity Not on file Sexual Orientation Not on file Last Filed Vital Signs Vital Sign Reading [...] Mass Index 52.91 11/23/2024 8:59 PM EDT Plan of Treatment Upcoming Encounters Date Type Department Care Team (Late st Contact Info) Description 12/01/2024 3:15 PM EDT Visit [facility] OBGYN [address] [facility] [address] [place] [address] Sheldon Godoy, VENEER DRIER TAILER [address] [facility] [address] [place] [address] 09/22/2025 2:45 PM EDT Office Visit [facility] SLEEP MEDICINE [address] [facility] [address] [place] [address] Dave Montaño, VENEER DRIER TAILER [address] [place] [address] Health Maintenance Due Date Last Done Comments HPV VACCINES (1 - 3-dose series) 2014 Pneumococcal Vaccine 0-49 (1 of 2 - PCV) 2018 TDAP/TD VACCINES (1 - Tdap) 2018 ANNUAL PHYSICAL 09/12/2020 COVID-19 Vaccine ( - 2023-2 5 season) 2024 INFLUENZA VACCINE 02/01/2025 Annual Gynecologic Pelvic an d Breast Exam 03/25/2025 03/24/2024 PAP SMEAR 03/24/2027 03/24/2024, 06/2022, 10/15/2021, Additional history exists CHLAMYDIA SCREENING Discontinued 04/22/2024, 03/24/2024, 12/03/2022, Additional history exists HEPATITIS C SCREENING Completed 09/23/2024, 024 Medical Devices Implanted Type Area Route Carrier Device Identifier Shelf Expiration Date Model / Serial / Lot Obrien Adhs I/O Interceed Abs 3x4in - [id number] Implanted:Qty : 1 on 11/25/2024 by Karan Mayo MD at [facility] Implant N/A: Uterus [employer] 01/01/2027 [id number] / / [id number] Procedures Procedure Name Priority Date/Time Associated Diagnosis Comments CBC AND DIFFERENTIAL Routine 11/28/2024 6:22 AM EDT CBC WITH AUTO DIFFERENTIAL Routine 11/28/2024 6:22 AM EDT PRE-ECLAMPSIA PANEL STAT 11/26/2024 1 :37 PM EDT CBC AND DIFFERENTIAL Timed 11/26/2024 4:45 AM EDT CBC WITH AUTO DIFFERENTIAL Timed 11/26/2024 4:45 AM EDT BLOOD GAS, VENOUS, CORD Routine 11/24/2024 11:54 PM EDT BLOOD GAS, ARTERIAL, CORD Routine 11/24/2024 11:53 PM EDT SECTION PRIMARY 11/24/2024 10:59 PM EDT HC BH AN LABOR EPIDURAL KIT Routine 11/24/2024 1:03 PM EDT PROTEIN / CREATININE RATIO, URINE Routine 11/23/2024 11:15 PM EDT CLEMENTS BULB CERVICAL RIPENING Routine 11/23/2024 9:43 PM EDT TYPE AND SCREEN Routine 11/23/2024 8:48 PM EDT COMPREHENSIVE METABOLIC PANEL Routine 11/23/2024 8:48 PM EDT URIC ACID Routine 11/23/2024 8:48 PM EDT LACTATE DEHYDROGENASE Routine 11/23/2024 8:48 PM EDT TREPONEMA PALLIDUM AB W/REFLEX RPR Routine 11/23/2024 8:48 PM EDT CBC (NO DIFF) Routine 11/23/2024 8:48 PM EDT POCT URINALYSIS DIPSTICK, MANUAL Routine 11/22/2024 2:22 PM EDT care, first in third trimester SCANNED - PROCEDURE 11/22/2024 SCANNED - PROCEDURE 11/18/2024 GROUP B STREPTOCOCCUS CULTURE Routine 11/15/2024 7:06 PM EDT 35 weeks gestation of ALP+ALT+AST+CREAT+LD+T BILI+.. Routine 11/15/2024 1:29 PM EDT Antepartum mild preeclampsia POCT URINALYSIS DIPSTICK, MANUAL Routine 11/15/2024 12:39 PM EDT Antepartum mild preeclampsia Teratogen exposure in current , single or unspecified fetus 35 weeks gestation of Obesity affecting , antepartum, unspecified obesity type Elevated liver enzymes Morbid obesity with BMI of 50.0-59.9, adult [facility] Routine 11/15/2024 11:32 AM EDT Elevated liver enzymes Antepartum mild preeclampsia ALP+ALT+AST+CREAT+LD+T BILI+.. STAT 11/11/2024 9:28 AM EDT care, first in third trimester Antepartum mild preeclampsia SCANNED - PROCEDURE 11/11/2024 CBC AND DIFFERENTIAL Routine 11/08/2024 8:56 AM EDT CONV SPECIMEN STATUS REPORT* Routine 11/08/2024 8:56 AM EDT ALP+ALT+AST+CREAT+LD+T BILI+.. Routine 11/08/2024 8:56 AM EDT care, antepartum, unspecified Other obesity affecting , antepartum Elevated liver enzymes Antepartum mild preeclampsia POCT URINALYSIS DIPSTICK, MANUAL Routine 11/08/2024 8:10 AM EDT care, antepartum, unspecified Other obesity affecting , antepartum Elevated liver enzymes Antepartum mild preeclampsia SCANNED - PROCEDURE 11/08/2024 ALP+ALT+AST+CREAT+LD+T BILI+.. Routine 11/03/2024 3:38 PM EDT Antepartum mild preeclampsia POCT URINALYSIS DIPSTICK, MANUAL Routine 11/03/2024 3:05 PM EDT care, antepartum, unspecified SCANNED - PROCEDURE 11/03/2024 ALP+ALT+AST+CREAT+LD+T BILI+.. Routine 10/31/2024 11:09 AM EDT care in third trimester, unspecified Elevated liver enzymes Gestational hypertension, antepartum 33 weeks gestation of POCT URINALYSIS DIPSTICK, MANUAL Routine 10/31/2024 10:48 AM EDT care in third trimester, unspecified [facility] DIAG[facility]STIC P[facility]Y Routine 10/31/2024 9:59 AM EDT Obesity affecting , antepartum, unspecified obesity type 32 weeks gestation of Antepartum mild preeclampsia ALP+ALT+AST+CREAT+LD+T BILI+.. Routine 10/28/2024 11:46 AM EDT care, third trimester 33 weeks gestation of Elevated liver enzymes POCT GLUCOSE, URINE, QUALITATIVE, DIPSTICK Routine 10/28/2024 10:49 AM EDT care, third trimester 33 weeks gestation of POCT PROTEIN, URINE, QUALITATIVE, DIPSTICK Routine 10/28/2024 10:49 AM EDT care, third trimester 33 weeks gestation of SCANNED - PROCEDURE 10/28/2024 PROTEIN, URINE, 24 HOUR Routine 10/25/2024 10:14 AM EDT CONV SPECIMEN STATUS REPORT* Routine 10/25/2024 10:14 AM EDT PRE-ECLAMPSIA PANEL Routine 10/25/2024 1 0:14 AM EDT -induced hypertension in third trimester POCT URINALYSIS DIPSTICK, MANUAL Routine 10/25/2024 9:25 AM EDT -induced hypertension in third trimester SCANNED - PROCEDURE 10/25/2024 ALP+ALT+AST+CREAT+LD+T BILI+.. Routine 10/20/2024 5:34 PM EDT Antepartum mild preeclampsia POCT URINALYSIS DIPSTICK, MANUAL Routine 10/20/2024 4:07 PM EDT Obesity affecting , antepartum, unspecified obesity type 32 weeks gestation of Teratogen exposure in current , single or unspecified fetus SCANNED - PROCEDURE 10/20/2024 CBC AND DIFFERENTIAL STAT 10/19/2024 9:58 PM EDT CBC WITH AUTO DIFFERENTIAL STAT 10/19/2024 9:58 PM EDT PRE-ECLAMPSIA PANEL STAT 10/19/2024 9 :58 PM EDT POCT PROTEIN, URINE, QUALITATIVE, DIPSTICK Routine 10/19/2024 9:31 PM EDT CONV SPECIMEN STATUS REPORT* Routine 10/18/2024 10:59 AM EDT PRE-ECLAMPSIA PANEL Routine 10/18/2024 1 0:59 AM EDT Gestational hypertension, antepartum Elevated LFTs POCT URINALYSIS DIPSTICK, MANUAL Routine 10/18/2024 10:12 AM EDT care, antepartum, unspecified PROTEIN, URINE, 24 HOUR Routine 10/18/2024 9:51 AM EDT Gestational hypertension, antepartum -induced hypertension in third trimester SCANNED - PROCEDURE 10/18/2024 PRE-ECLAMPSIA PANEL Routine 10/14/2024 4 :43 AM EDT CBC (NO DIFF) Routine 10/14/2024 4:43 AM EDT US LIVER Routine 10/13/2024 8:51 PM EDT PROTEIN, URINE, 24 HOUR Routine 10/12/2024 9:02 PM EDT CBC AND DIFFERENTIAL Routine 10/12/2024 5:20 AM EDT SCAN SLIDE Routine 10/12/2024 5:20 AM EDT CBC WITH AUTO DIFFERENTIAL Routine 10/12/2024 5:20 AM EDT PRE-ECLAMPSIA PANEL Routine 10/12/2024 5 :20 AM EDT [facility] Routine 10/11/2024 7:44 AM EDT ABORH 2ND SPECIMEN VERIFICATION STAT 10/10/2024 6:59 PM EDT TYPE AND SCREEN Routine 10/10/2024 5:12 PM EDT COMPREHENSIVE METABOLIC PANEL Routine 10/10/2024 5:12 PM EDT URIC ACID Routine 10/10/2024 5:12 PM EDT LACTATE DEHYDROGENASE Routine 10/10/2024 5:12 PM EDT TREPONEMA PALLIDUM AB W/REFLEX RPR Routine 10/10/2024 5:12 PM EDT CBC (NO DIFF) Routine 10/10/2024 5:12 PM EDT AMMONIA Routine 10/07/2024 10:46 AM EDT care, first in third trimester Gestational hypertension, antepartum Elevated LFTs ALP+ALT+AST+CREAT+LD+T BILI+.. Routine 10/07/2024 10:46 AM EDT care, first in third trimester Gestational hypertension, antepartum Elevated LFTs PROTEIN, URINE, 24 HOUR Routine 10/07/2024 9:00 AM EDT Gestational hypertension, antepartum POCT URINALYSIS DIPSTICK, MANUAL Routine 10/07/2024 8:50 AM EDT care, first in third trimester SCANNED - PROCEDURE 10/07/2024 BILE ACIDS, TOTAL Routine 10/03/2024 11: 02 AM EDT care, first in third trimester Elevated liver function tests ALP+ALT+AST+CREAT+LD+T BILI+.. Routine 10/03/2024 11:02 AM EDT care, first in third trimester Elevated liver function tests POCT PROTEIN, URINE, QUALITATIVE, DIPSTICK Routine 10/03/2024 10:29 AM EDT care, first in third trimester POCT GLUCOSE, URINE, QUALITATIVE, DIPSTICK Routine 10/03/2024 10:29 AM EDT care, first in third trimester SCANNED - PROCEDURE 10/03/2024 ALP+ALT+AST+CREAT+LD+T BILI+.. STAT 09/29/2024 10:22 AM EDT -induced hypertension in third trimester Elevated liver function tests POCT URINALYSIS DIPSTICK, MANUAL Routine 09/29/2024 9:07 AM EDT First , second trimester SCANNED - PROCEDURE 09/29/2024 HEPATITIS C VIRUS INTERPRETATION STAT 09/23/2024 2:30 PM EDT ALP+ALT+AST+CREAT+LD+T BILI+.. STAT 09/23/2024 2:30 PM EDT 28 weeks gestation of Gestational hypertension, second trimester HEPATITIS PANEL, ACUTE STAT 2:30 PM EDT 28 weeks gestation of Gestational hypertension, second trimester POCT URINALYSIS DIPSTICK, MANUAL Routine 09/23/2024 2:12 PM EDT 28 weeks gestation of Gestational hypertension, second trimester ANTIBODY SCREEN Routine 09/21/2024 10:17 AM EDT care in third trimester, unspecified BILE ACIDS, TOTAL Routine 09/21/2024 10: 17 AM EDT COMPREHENSIVE METABOLIC PANEL Routine 09/21/2024 10:17 AM EDT RPR, RFX QN RPR/CONFIRM TP Routine 09/21/2024 10:17 AM EDT care in third trimester, unspecified GESTATIONAL SCREEN 1 HR Routine 09/21/2024 10:17 AM EDT care in third trimester, unspecified CBC (NO DIFF) Routine 09/21/2024 10:17 AM EDT care in third trimester, unspecified POCT URINALYSIS DIPSTICK, MANUAL Routine 09/21/2024 9:12 AM EDT care in third trimester, unspecified US BIOPHYSICAL PROFILE;WITHOUT NON-STRESS TESTING Routine 09/21/2024 8:40 AM EDT Gestational hypertension, second trimester POCT PROTEIN, URINE, QUALITATIVE, DIPSTICK Routine 09/19/2024 10:19 AM EDT 27 weeks gestation of POCT GLUCOSE, URINE, QUALITATIVE, DIPSTICK Routine 09/19/2024 10:19 AM EDT 27 weeks gestation of PROTEIN, URINE, 24 HOUR Routine 09/19/2024 10:00 AM EDT Gestational hypertension, second trimester ALP+ALT+AST+CREAT+LD+T BILI+.. Routine 09/14/2024 1:58 PM EDT Gestational hypertension, second trimester CHLAMYDIA TRACHOMATIS, NEISSERIA GONORRHOEAE, PCR Routine 04/22/2024 12:00 AM EST with uncertain dates in first trimester Initial obstetric visit in first trimester LIQUID-BASED PAP SMEAR WITH HPV GENOTYPING REGARDLESS OF INTERPRETATION, [facility] ([facility]NA,[facility]) Routine 03/24/2024 3:37 PM EST Women's annual routine gynecological examination from Last 3 Months or Most Recently Relevant to Health Maintenance Results * (ABNORMAL) CBC Auto Differential (11/28/2024 6:22 AM EDT) Only the most recent of4 resultswithin the time period is included. WBC 4.72 3.40 - 10.80 10*3/mm3 11/28/2024 7:38 AM EDT [facility] RBC 3.12(L) 3.77 - 5.28 10*6/mm3 11/28/2024 7:38 AM [facility] Hemoglobin 8.9(L) 12.0 - 15.9 g/dL 11/28/2024 7:38 AM [facility] Hematocrit 28.7(L) 34.0 - 46.6 % 11/28/2024 7:38 AM [facility] MCV 92.0 79.0 - 97.0 fL 11/28/2024 7:38 AM [facility] MCH 28.5 26.6 - 33.0 pg 11/28/2024 7:38 AM [facility] MCHC 31.0(L) 31.5 - 35.7 g/dL 11/28/2024 7:38 AM [facility] RDW 15.0 12.3 - 15.4 % 11/28/2024 7:38 AM [facility] RDW-SD 50.3 37.0 - 54.0 fl 11/28/2024 7:38 AM [facility] MPV 10.6 6.0 - 12.0 fL 11/28/2024 7:38 AM [facility] Platelets 192 140 - 450 10*3/mm3 11/28/2024 7:38 AM [facility] Neutrophil % 53.0 42.7 - 76.0 % 11/28/2024 7:38 AM [facility] Lymphocyte % 30.9 19.6 - 45.3 % 11/28/2024 7:38 AM [facility] Monocyte % 12.1(H) 5.0 - 12.0 % 11/28/2024 7:38 AM [facility] Eosinophil % 3.4 0.3 - 6.2 % 11/28/2024 7:38 AM [facility] Basophil % 0.4 0.0 - 1.5 % 11/28/2024 7:38 AM [facility] Immature Grans % 0.2 0.0 - 0.5 % 11/28/2024 7:38 AM [facility] Neutrophils, Absolute 2.50 1.70 - 7.00 10*3/mm3 11/28/2024 7:38 AM EDT [facility] Lymphocytes, Absolute 1.46 0.70 - 3.10 10*3/mm3 11/28/2024 7:38 AM EDT [facility] Monocytes, Absolute 0.57 0.10 - 0.90 10*3/mm3 11/28/2024 7:38 AM EDT [facility] Eosinophils, Absolute 0.16 0.00 - 0.40 10*3/mm3 11/28/2024 7:38 AM EDT [facility] Basophils, Absolute 0.02 0.00 - 0.20 10*3/mm3 11/28/2024 7:38 AM EDT [facility] Immature Grans, Absolute 0.01 0.00 - 0.05 10*3/mm3 11/28/2024 7:38 AM EDT [facility] nRBC 0.0 0.0 - 0.2 /100 WBC 11/28/2024 7:38 AM EDT [facility] Blood Venipuncture / Unknown 11/28/2024 6:22 AM EDT 11/28/2024 7:12 AM EDT us Radha De Souza [employer] LAB BLOOD ORDERABLES Final Re sult [facility]
[address] [place] [address], * (ABNORMAL) Preeclampsia Panel (11/26/2024 1:37 PM EDT) Only the most recent of6 resultswithin the time period is included. Alkaline Phosphatase 107 39 - 117 U/L 11/26/2024 2:04 PM EDT [facility] ALT (SGPT) 48(H) 1 - 33 U/L 11/26/2024 2:04 PM EDT [facility] AST (SGOT) 23 1 - 32 U/L 11/26/2024 2:04 PM EDT [facility] Creatinine 0.61 0.57 - 1.00 mg/dL 11/26/2024 2:04 PM EDT [facility] Total Bilirubin 0.2 0.0 - 1.2 mg/dL 11/26/2024 2:04 PM EDT [facility] LDH 237(H) 135 - 214 U/L 11/26/2024 2:04 PM EDT [facility] Comment:Specimen hemolyzed. Results may be affected. Uric Acid 6.3(H) 2.4 - 5.7 mg/dL 11/26/2024 2:04 PM EDT [facility] Blood Venipuncture / Unknown 11/26/2024 1:37 PM EDT 11/26/2024 1:44 PM EDT us Radha De Souza [employer] LAB BLOOD ORDERABLES Final Re sult [facility]
[address] [place] [address], * (ABNORMAL) Blood Gas, Venous, Cord (11/24/2024 11:54 PM EDT) Site Umbilical 11/25/2024 12:01 AM EDT [facility] pH, Cord Venous 7.313 7.310 - 7.370 pH Units 11/25/2024 12:01 AM EDT [facility] pCO2, Cord Venous 49.9(H) 28.0 - 40.0 mm Hg 11/25/2024 12:01 AM EDT [facility] pO2, Cord Venous 18.8(L) 21.0 - 31.0 mm Hg 11/25/2024 12:01 AM EDT [facility] HCO3, Cord Venous 25.3(H) 18.6 - 21.4 mmol/L 11/25/2024 12:01 AM EDT [facility] Base Excess, Cord Venous -1.6(L) 0.0 - 2.0 mmol/L 11/25/2024 12:01 AM EDT [facility] O2 Sat, Cord Venous 39.4 % 11/25/2024 12:01 AM EDT [facility] Hemoglobin, Blood Gas 15.1 14 - 18 g/dL 11/25/2024 12:01 AM EDT [facility] CO2 Content 26.8 22 - 33 mmol/L 11/25/2024 12:01 AM EDT [facility] Temperature 37.0 11/25/2024 12:01 AM EDT [facility] Barometric Pressure for Blood Gas 11/25/2024 12:01 AM EDT [facility] Comment:N/A Modality Room Air 11/25/2024 12:01 AM EDT [facility] FIO2 21 % 11/25/2024 12:01 AM EDT [facility] Ventilator Mode 12:01 AM EDT [facility] Rate 0 Breaths/m inute 11/25/2024 12:01 AM EDT [facility] PIP 0 cmH2O 11/25/2024 12:01 AM EDT [facility] Comment:Meter: [id number] [employer] Trimmer: [id number] IPAP 0 11/25/2024 12:01 AM EDT [facility] EPAP 0 11/25/2024 12:01 AM EDT [facility] O2 Saturation Calculated 11/25/2024 12:01 AM EDT [facility] Comment:Calculated O2 satura tion result not reported at this site. Cord Blood Venous Umbilical cord structure / Unknown 11/24/2024 11:54 PM EDT 11/24/2024 11:54 PM EDT us Karan Mayo MD LAB BLOOD ORDERABLES Final Resu lt [facility]
[address] [place] [address], * (ABNORMAL) Blood Gas, Arterial, Cord (11/24/2024 11:53 PM EDT) Site Umbilical 11/25/2024 12:00 AM EDT [facility] pH, Cord Arterial 7.27 7.22 - 7.30 pH Units 11/25/2024 12:00 AM EDT [facility] pCO2, Cord Arterial 56.9(H) 43.3 - 54.9 mmHg 11/25/2024 12:00 AM EDT [facility] pO2, Cord Arterial 13.6 11.5 - 43.3 mmHg 11/25/2024 12:00 AM EDT [facility] HCO3, Cord Arterial 25.9(H) 16.9 - 20.5 mmol/L 11/25/2024 12:00 AM EDT [facility] Base Exc, Cord Arterial -2.3(L) 0.0 - 2.0 mmol/L 11/25/2024 12:00 AM EDT [facility] O2 Sat, Cord Arterial 19.8 % 11/25/2024 12:00 AM EDT [facility] Hemoglobin, Blood Gas 15.6 14 - 18 g/dL 11/25/2024 12:00 AM [facility] CO2 Content 27.6 22 - 33 mmol/L 11/25/2024 12:00 AM [facility] Temperature 37.0 11/25/2024 12:00 AM [facility] Barometric Pressure for Blood Gas 11/25/2024 12:00 AM [facility] Comment:N/A Modality Room Air 11/25/2024 12:00 AM [facility] FIO2 21 % 11/25/2024 12:00 AM [facility] Rate 0 Breaths/m inute 11/25/2024 12:00 AM [facility] TH[facility] PIP 0 cmH2O 11/25/2024 12:00 AM [facility] Comment:Meter: [id number] [employer]: [id number] IPAP 0 11/25/2024 12:00 AM EDT [facility] EPAP 0 11/25/2024 12:00 AM EDT [facility] Note 0 11/25/2024 12:00 AM EDT [facility] Cord Blood Arterial Umbilical cord structure / Unknown 11/24/2024 11:53 PM EDT 11/24/2024 11:53 PM EDT Karan Mayo MD LAB BLOOD ORDERABLES Final Resu lt [facility]
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 Prep:DuraPrep Monitoring:blood [...] well with no apparent complications Complications:no Peggy Rodriguez DO ANESTHESIA ORDERAB LES Final Result * Protein / Creatinine Ratio, Urine - Urine, Clean Catch (11/23/2024 11:15 PM EDT) Protein/Creati nine Ratio, Urine 102.9 0.0 - 200.0 mg/G Crea 11/24/2024 9:27 AM EDT [facility] Creatinine, Urine 128.3 mg/dL 11/24/2024 9:27 AM EDT [facility] Total Protein, Urine 13.2 mg/dL 11/24/2024 9:27 AM EDT [facility] Urine Urine specimen obtained by clean catch procedure / Unknown Collection / Unknown 11/23/2024 11:15 PM EDT 11/23/2024 11:45 PM EDT us Karan Mayo MD URINE ORDERABLES Final Result [facility]
[address] [place] [address], [place] [phone] * Clements Bulb Cervical Ripening Without Infusion (11/23/2024 9:43 PM EDT) Narrative Adithya Nelson MD - 11/23/2024 9:43 PM EDT Adithya Nelson MD 11/23/2024 9:45 PM Transcervical Clements placed per physician request. FHT's class 1. Patient tolerated well. 23 citizen of [place], 60ml. Adithya Nelson MD 11/23/2024 21:45 EDT us Karan Mayo MD OB GYNE ORDERABLES Final Result * Treponema pallidum AB w/Reflex RPR (11/23/2024 8:48 PM EDT) Only the most recent of2 resultswithin the time period is included. Treponemal AB Total Non-Reacti ve Non-React noemi 11/24/2024 2:54 AM EDT [facility] Blood Venipuncture / Unknown 11/23/2024 8:48 PM EDT 11/23/2024 9:27 PM EDT Narrative [facility] - 11/24/2024 2:54 AM EDT Reactive results will reflex RPR testing. us Karan Mayo MD LAB BLOOD ORDERABLES Final Resu lt [facility]
[address] [place] [address], * CBC (No Diff) (11/23/2024 8:48 PM EDT) Only the most recent of4 resultswithin the time period is included. WBC 9.65 3.40 - 10.80 10*3/mm3 11/23/2024 9:44 PM EDT [facility] RBC 4.22 3.77 - 5.28 10*6/mm3 11/23/2024 9:44 PM EDT [facility] Hemoglobin 12.1 12.0 - 15.9 g/dL 11/23/2024 9:44 PM EDT [facility] Hematocrit 37.0 34.0 - 46.6 % 11/23/2024 9:44 PM EDT [facility] MCV 87.7 79.0 - 97.0 fL 11/23/2024 9:44 PM EDT [facility] MCH 28.7 26.6 - 33.0 pg 11/23/2024 9:44 PM EDT [facility] MCHC 32.7 31.5 - 35.7 g/dL 11/23/2024 9:44 PM EDT [facility] RDW 14.3 12.3 - 15.4 % 11/23/2024 9:44 PM EDT [facility] RDW-SD 45.6 37.0 - 54.0 fl 11/23/2024 9:44 PM EDT [facility] MPV 11.6 6.0 - 12.0 fL 11/23/2024 9:44 PM EDT [facility] Platelets 202 140 - 450 10*3/mm3 11/23/2024 9:44 PM EDT [facility] Blood Venipuncture / Unknown 11/23/2024 8:48 PM EDT 11/23/2024 9:26 PM EDT us Karan Mayo MD LAB BLOOD ORDERABLES Final Resu lt Performing Organization Address City/[facility]/ZIP Co de Phone Number [facility]
[address] [place] [address], * Type & Screen (11/23/2024 8:48 PM EDT) Only the most recent of2 resultswithin the time period is included. ABO Type O 11/23/2024 10:02 PM EDT [facility] RH type Positive 11/23/2024 10:02 PM EDT [facility] Antibody Screen Negative 11/23/2024 10:02 PM EDT [facility] T&S Expiration Date 11/26/2024 11:59:59 PM 11/23/2024 10:02 PM EDT [facility] Blood Venipuncture / Unknown 11/23/2024 8:48 PM EDT 11/23/2024 9:26 PM EDT us Karan Mayo MD BLOOD BANK TEST ORDERABLES Edit ed Result - Final Performing Organization Address [facility] de Phone Number [facility]
[address] [place] [address], [place] [phone] * Uric Acid (11/23/2024 8:48 PM EDT) Only the most recent of2 resultswithin the time period is included. Uric Acid 5.1 2.4 - 5.7 mg/dL 11/23/2024 10:06 PM EDT [facility] Comment:Falsely depressed re sults may occur on samples drawn from patients receiving N-Acetylcysteine (NAC) or Metamizole. Blood Venipuncture / Unknown 11/23/2024 8:48 PM EDT 11/23/2024 9:26 PM EDT us Karan Mayo MD LAB BLOOD ORDERABLES Final Resu lt Performing Organization Address City/[facility]/ZIP Co de Phone Number [facility]
[address] [place] [address], * (ABNORMAL) Lactate Dehydrogenase (11/23/2024 8:48 PM EDT) Only the most recent of2 resultswithin the time period is included. LDH 242(H) 135 - 214 U/L 11/23/2024 10:06 PM EDT [facility] Comment:Specimen hemolyzed. Results may be affected. Blood Venipuncture / Unknown 11/23/2024 8:48 PM EDT 11/23/2024 9:26 PM EDT us Karan Mayo MD LAB BLOOD ORDERABLES Final Resu lt Performing Organization Address [facility] Co de Phone Number [facility]
[address] [place] [address], * (ABNORMAL) Comprehensive Metabolic Panel (11/23/2024 8:48 PM EDT) Only the most recent of3 resultswithin the time period is included. Glucose 116(H) 65 - 99 mg/dL 11/23/2024 10:06 PM EDT [facility] BUN 7.0 6.0 - 20.0 mg/dL 11/23/2024 10:06 PM EDT [facility] Creatinine 0.50(L) 0.57 - 1.00 mg/dL 11/23/2024 10:06 PM EDT [facility] Sodium 137 136 - 145 mmol/L 11/23/2024 10:06 PM EDT [facility] Potassium 4.0 3.5 - 5.2 mmol/L 11/23/2024 10:06 PM EDT [facility] Chloride 107 98 - 107 mmol/L 11/23/2024 10:06 PM EDT [facility] CO2 19.1(L) 22.0 - 29.0 mmol/L 11/23/2024 10:06 PM EDT [facility] Calcium 8.9 8.6 - 10.5 mg/dL 11/23/2024 10:06 PM T [facility] Total Protein 5.9(L) 6.0 - 8.5 g/dL 11/23/2024 10:06 PM T [facility] Albumin 3.4(L) 3.5 - 5.2 g/dL 11/23/2024 10:06 PM T [facility] ALT (SGPT) 90(H) 1 - 33 U/L 11/23/2024 10:06 PM T [facility] AST (SGOT) 52(H) 1 - 32 U/L 11/23/2024 10:06 PM [facility] Alkaline Phosphatase 129(H) 39 - 117 U/L 11/23/2024 10:06 PM T [facility] Total Bilirubin 0.3 0.0 - 1.2 mg/dL 11/23/2024 10:06 PM [facility] Globulin 2.5 gm/dL 11/23/2024 10:06 PM [facility] Comment:Calculated Result A/G Ratio 1.4 g/dL 11/23/2024 10:06 PM [facility] BUN/Creatinine Ratio 14.0 7.0 - 25.0 11/23/2024 10:06 PM T [facility] Anion Gap 10.9 5.0 - 15.0 mmol/L 11/23/2024 10:06 PM [facility] eGFR 133.7 >60.0 mL/min/1.7 3 11/23/2024 10:06 PM [facility] Blood Venipuncture / Unknown 11/23/2024 8:48 PM EDT 11/23/2024 9:26 PM EDT [facility] - 11/23/2024 10:06 PM EDT [...] not include race as a factor us Karan Mayo MD LAB BLOOD ORDERABLES Final Resu lt [facility]
[address] [place] [address], [place] [phone] * POC Urinalysis Dipstick (11/22/2024 2:22 PM EDT) Only the most recent of12 resultswithin the time period is included. Pathologist [facility] Glucose, UA Negative Negative mg/dL [facility] Protein, POC Negative Negative mg/dL [facility] Urine 11/22/2024 2:22 PM EDT us Karan Mayo MD POINT OF CARE TEST ORDERABLES F inal Result Performing Organization Address City/[facility]/ZIP Co de Phone Number [facility]
[address] [place] [address], [place] [phone] * Procedure Scanned (11/22/2024) us Karan Mayo MD PROCEDURE/MINOR SURGICAL ORDERA BLES Final Result * Procedure Scanned (11/18/2024) us Karan Mayo MD PROCEDURE/MINOR SURGICAL ORDERA BLES Final Result * Group B Streptococcus Culture - Swab, Vaginal/Rectum (11/15/2024 7:06 PM EDT) Group B Strep Culture No Group B Streptococcus isolated GIUSEPPE 11/18/2024 8:21 AM EDT [facility] Swab Rectum and vagina, CS / Unknown Collection / Unknown 11/15/2024 7:06 PM EDT 11/15/2024 7:06 PM EDT us Karan Mayo MD MICROBIOLOGY - GENERAL ORDERABL ES Final Result [facility]
[address] [place] [address], * (ABNORMAL) AlP+ALT+AST+Creat+LD+TBili+.. (11/15/2024 1:29 PM EDT) Only the most recent of12 resultswithin the time period is included. Uric Acid 5.6 2.4 - 5.7 mg/dL [...] - 11/16/2024 3:35 AM EDT Performed at: [address] [id number] Peg Driver: Jeremy Emanuel MD, Phone: [phone] us Karan Mayo MD LAB BLOOD ORDERABLES Final Resu lt [facility] ([facility]) [address] [place] [address], [facility] [address] [place] [address], * Formerly [facility], [facility] (11/15/2024 11:32 AM EDT) Only the most recent of3 resultswithin the time period is included. Anatomical Region Laterality Modality Ultrasound 11/15/2024 11:0 7 AM EDT Narrative 11/15/2024 11:44 AM EDT PAT NAME: PENNY URIBE MED REC#: [id number] DA: [id number] PAT GEND: F PAT TYPE: O EXAM JEAN-CLAUDE: [id number] REF PHYS KARAN MAYO Comparison Studies The [...] EFW (oz) 14 oz EFW by: Hadlock ([id number]) Extended Cav. septi pel. tr 6.6 mm [...] Normal Heart / Thorax 3-vessel view: suboptimal 4-rqjxol-tneuysv view: suboptimal Stomach: Appears normal Kidneys: Appears [...] Follow-up as clinically indicated. Coding ======= Description: 10384-15 Follow Up Ultrasound Description: 77956-35 BPP without NST Properties Supervisor: Monae Armstrong RDMS Physician: Joaquín Barrientos MD, FACOG Electronically signed by: Joaquín Barrientos MD, FACOG at: 11:44 Procedure Note Joaquín Barrientos MD - 11/15/2024 PAT NAME: PENNY URIBE MED REC#: [id number] DA: [id number] PAT GEND: F PAT TYPE: O EXAM JEAN-CLAUDE: [id number] REF PHYS KARAN MAYO Comparison Studies The findings of this study are compared to the prior ultrasound studydated 10/31/24. Patient Status Outpatient Indication ======== Preeclampsia. Super obesity BMI 52. Maternal Assessment [id number] cm Height (ft)5 ft Height (in)3 in [id number] kg Weight (lb)300 lb BMI53.16 kg/m Method ======= Transabdominal ultrasound examination. View: Limited by patient bodyhabitus ========= Navarro . Number of fetuses: 1 Dating ====== LMP on:02/25/2024 GA by [id number] w + 5 d KAREN by LMP:12/01/2024 GA by prior [id number] w + 6 d KAREN by prior [...] [id number] w + 6 d Assigned KAREN:12/14/2024 d Biometry Standard BPD88.2 mm 35w 5d 51% Hadlock ULU670.3 mm -/- 98% Mary HC329.0 mm 37w 3d 58% Hadlock Cerebellum tr46.9 mm 35w 3d 34% Hill AC342.8 mm 38w 1d 98% Hadlock Femur68.4 mm 35w 1d 26% Hadlock Bhorjzo63.8 mm 35w 1d 51% Mary HC / AC0.96 EFW3,113 g 37w 3d 82% Hadlock EFW (lb)6 lb EFW (oz)14 oz EFW by:Hadlock ([id number]) Extended Cav. septi pel. tr6.6 mm CM7.9 mm 61% Nicolaides Head / Face / Neck Cephalic index0.75 4% Nicolaides Extremities / Bony Struc FL / BPD0.78 FL / HC0.21 FL / AC0.20 Other Structures ENF351 bpm General Evaluation Cardiac activity present. FHR 141 bpm. movements present. Presentation cephalic. Placenta Placental site: posterior. Amniotic fluid Amount of AF: normal. MVP 4.8 cm. JD 16.0 cm. Q1 3.1 cm,Q2 4.5 cm, Q3 4.8 cm, Q4 3.6 cm. Anatomy Cranium:Normal Cavum septi pellucidi:Normal Cerebellum:Normal Cisterna magna:Normal Lips:suboptimal Profile:suboptimal 4-chamber view:Appears normal RVOT view:Normal LVOT view:Normal Heart / Thorax 3-vessel view:suboptimal 0-mlsctg-tssornn view:suboptimal Stomach:Appears normal Kidneys:Appears normal Bladder:Appears normal [...] Recommendation Follow-up as clinically indicated. Coding ======= Description:99185-85 Follow Up Ultrasound Description:72100-38 BPP without NST Properties Supervisor: Monae Armstrong RDMS Physician: Joaquín Barrientos MD, FACOG Electronically signed by: Joaquín Barrientos MD, FACOG at: 11:44 us Britt Paul MD IMG US ORDERABLES Final Result * Procedure Scanned (11/11/2024) us Karan Mayo MD PROCEDURE/MINOR SURGICAL ORDERA BLES Final Result * Specimen Status Report (11/08/2024 8:56 AM EDT) Only the most recent of3 resultswithin the time period is included. Specimen Status Comment [facility] Comment: Written Authorization Written Authorization Written Authorization Received. Authorization received from TEST ORDERED ON ORIGINAL REQUISITION 11-09-2024 Logged by Jocelyne Wallace 11/08/2024 8:56 AM EDT 11/08/2024 [facility] (AMBULATORY) - 11/09/2024 2:36 PM EDT Performed at: [address] [place] [address] [id number] Peg Driver: Jeremy Emanuel MD, Phone: [phone] Karan Mayo MD LAB BLOOD ORDERABLES Final Resu lt [facility] (AMBULATORY) [address] [place] [address], [facility] [address] [place] [address], * (ABNORMAL) CBC & Differential (11/08/2024 8:56 [...] 11/08/2024 8:56 AM EDT 11/08/2024 Narrative [facility] (AMBULATORY) - 11/09/2024 2:36 PM EDT Performed at: [address] [place] [address] [id number] Peg Driver: Jeremy Emanuel MD, Phone: [phone] us Karan Mayo MD LAB BLOOD ORDERABLES Final Resu lt [facility] (AMBULATORY) [address] [place] [address], [place] [phone] [facility] [address] [place] [address], [place] [phone] * Procedure Scanned (11/08/2024) us Karan Mayo MD PROCEDURE/MINOR SURGICAL ORDERA BLES Final Result * Procedure Scanned (11/03/2024) us Karan Mayo MD PROCEDURE/MINOR SURGICAL ORDERA BLES Final Result * POC Protein, Urine, Qualitative, Dipstick (10/28/2024 10:49 AM EDT) Only the most recent of4 resultswithin the time period is included. [facility] Signature Protein, POC Negative Negative mg/dL [facility] Lot Number 0 [facility] Expiration Date 0 [facility] Urine 10/28/2024 10:4 9 AM EDT us Rosalinda Uriostegui [employer] POINT OF CARE TEST ORDERAB LES Final Result [facility]
[address] [place] [address], [place] [phone] * POC Glucose, Urine, Qualitative, Dipstick (10/28/2024 10:49 AM EDT) Only the most recent of3 resultswithin the time period is included. Glucose, UA Negative Negative mg/dL [facility] Urine 10/28/2024 10:4 9 AM EDT us Rosalinda Uriostegui VENEER DRIER TAILER POINT OF CARE TEST ORDERAB LES Final Result Performing Organization Address City/[facility]/ZIP Co de Phone Number [facility]
[address] [place] [address], [place] [phone] * Procedure Scanned (10/28/2024) us Rosalinda Uriostegui VENEER DRIER TAILER PROCEDURE/MINOR SURGICAL O RDERABLES Final Result * (ABNORMAL) Protein, Urine, 24 Hour - (10/25/2024 10:14 AM EDT) Only the most recent of5 resultswithin the time period is included. Total Protein, Urine 9.8 Not Estab. mg/dL [facility] Protein, 24H Urine 225(H) 30 - 150 mg/24 hr [facility] 10/25/2024 10:1 4 AM EDT 10/25/2024 Narrative [facility] ([facility]) - 10/26/2024 11:11 AM EDT Performed at: [facility] [id number] Peg Driver: Cristian Acuña PhD, Phone: [phone] us Shilpa De Leon VENEER DRIER TAILER URINE ORDERABLES Final Result [facility] ([facility]) [address] [place] [address], [place] [phone] [facility] [address] [place] [address], [place] [phone] * Procedure Scanned (10/25/2024) us Shlipa De Leon VENEER DRIER TAILER PROCEDURE/MINOR SURGICAL ORDERA BLES Final Result * Procedure Scanned (10/20/2024) us Karan Mayo MD PROCEDURE/MINOR SURGICAL ORDERA BLES Final Result * Procedure Scanned (10/18/2024) us Shilpa De Leon VENEER DRIER TAILER PROCEDURE/MINOR SURGICAL ORDERA BLES Final Result * US Liver (10/13/2024 8:51 PM EDT) Anatomical Region Laterality Modality Body, Abdomen Ultrasound 10/13/2024 9:15 PM EDT Impressions 10/13/2024 9:20 PM EDT Impression: Negative right upper quadrant ultrasound. Electronically Signed: Nathaniel Engel MD 10/13/2024 9:20 PM EDT Workstation ID: [id number] Narrative 10/13/2024 9:20 PM EDT US LIVER [...] evident. The right kidney measures 12 cm [id number]. The echogenicity of the renal cortex is [...] evident. The right kidney measures 12 cm [id number]. The echogenicity of therenal cortex is within normal limits relative to the liver. No shadowingstones are seen. There is no evidence of hydronephrosis. IMPRESSION: Impression: Negative right upper quadrant ultrasound. Electronically Signed: Nathaniel Engel MD 10/13/2024 9:20 PM EDT Workstation ID: [id number] us Karan Mayo MD IMG US ORDERABLES Final Result * Scan Slide (10/12/2024 5:20 AM EDT) RBC Morphology Normal Normal 10/12/2024 7:31 AM EDT [facility] WBC Morphology Normal Normal 10/12/2024 7:31 AM EDT [facility] Platelet Morphology Normal Normal 10/12/2024 7:31 AM EDT [facility] Blood Venipuncture / Unknown 10/12/2024 5:20 AM EDT 10/12/2024 5:59 AM EDT us Karan Mayo MD LAB BLOOD ORDERABLES Final Resu lt [facility]
[address] [place] [address], [place] [phone] * ABO RH Specimen Verification (10/10/2024 6:59 PM EDT) ABO Type O 10/10/2024 7:24 PM EDT [facility] RH type Positive 10/10/2024 7:24 PM EDT [facility] Blood Venipuncture / Unknown 10/10/2024 6:59 PM EDT 10/10/2024 7:06 PM EDT Shilpa De Leon APRN BLOOD BANK TEST ORDERABLES Milena l Result [facility]
[address] [place] [address], * (ABNORMAL) Ammonia (10/07/2024 10:46 AM EDT) Ammonia 114(H) 29 - 112 ug/dL [facility] Blood 10/07/2024 10:4 6 AM EDT 10/07/2024 Narrative [facility] ([facility]) - 10/11/2024 11:11 AM EDT Performed at: - Lab[address] [id number] Peg Driver: Cristian Acuña PhD, Phone: [phone] Patient Fasting: N Karan Mayo MD LAB BLOOD ORDERABLES Final Resu lt [facility] ([facility]) [address] [place] [address], [place] [phone] [facility] [address] [place] [address], [place] [phone] * Procedure Scanned (10/07/2024) us Karan Mayo MD PROCEDURE/MINOR SURGICAL ORDERA BLES Final Result * Bile Acids, Total (10/03/2024 11:02 AM EDT) Only the most recent of2 resultswithin the time period is included. Bile Acids Total 4.7 0.0 - 10.0 umol/L [facility] Comment:Results verified b y repeat testing Blood 10/03/2024 11:0 2 AM EDT 10/03/2024 Narrative [facility] (AMBULATORY) - 10/05/2024 6:09 AM EDT Performed at: [address] [id number] Peg Driver: Latasha Schwartz MD, Phone: [phone] Patient Fasting: N Dayanna Marvin APRN LAB BLOOD ORDERABLES Milena l Result [facility] [address] [place] [address], [place] [phone] [facility] [address] [place] [address], [place] [phone] * Procedure Scanned (10/03/2024) Dayanna Marvin VENEER DRIER TAILER PROCEDURE/MINOR SURGICAL ORDERABLES Final Result * Procedure Scanned (09/29/2024) Dayanna Marvin VENEER DRIER TAILER PROCEDURE/MINOR SURGICAL ORDERABLES Final Result * Hepatitis C Virus Interpretation (09/23/2024 2:30 PM EDT) Pathologist [facility] Interpretation Comment [facility] Comment: Not infected with HCV unless early or acute infection is suspected (which may be delayed in an immunocompromised individual), or other evidence exists to indicate HCV infection. 09/23/2024 2:30 PM EDT 09/23/2024 Narrative [facility] (AMBULATORY) - 09/24/2024 8:36 AM EDT Performed at: [address] [place] [address] [address] [place], [place] [id number] Peg Driver: Cristian Acuña PhD, Phone: [phone] Rosalinda Uriostegui VENEER DRIER TAILER LAB BLOOD ORDERABLES Final Result Performing Organization Address City/[facility]/ZIP Co de Phone Number [facility] (AMBULATORY) [address] [place] [address], [facility] [address] [place] [address], * Hepatitis Panel, Acute (09/23/2024 2:30 PM EDT) Pathologist [facility] Hep A IgM Negative Negative [facility] Comment: A negative anti-HAV IgM result suggests no recent or current HAV infection. Hepatitis B Surface Ag Negative Negative [facility] Hep B Core IgM Negative Negative [facility] Hepatitis C Ab Non Reactive Non Reactive [facility] Blood 09/23/2024 2:30 PM EDT 09/23/2024 Narrative [facility] (AMBULATORY) - 09/24/2024 8:36 AM EDT Performed at: [facility] [address] [place] [id number] Peg Driver: Cristian Acuña PhD, Phone: [phone] Rosalinda N Gila VENEER DRIER TAILER LAB BLOOD ORDERABLES Final Result Performing Organization Address City/[facility] Co de Phone Number [facility] [address] [place] [address], [facility] [address] [place] [address], * Gestational Screen 1 Hr ([facility]) (09/21/2024 10:17 AM EDT) [facility] Gestational Diabetes Screen 107 70 - 139 mg/dL [facility] Comment: According to ADA, a glucose threshold of >139 mg/dL after 50-gram load identifies approximately 80% of women with gestational diabetes mellitus, while the sensitivity is further increased to approximately 90% by a threshold of >129 mg/dL. Blood 09/21/2024 10:1 7 AM EDT 09/21/2024 Narrative [facility] (AMBULATORY) - 09/22/2024 7:37 AM EDT Performed at: [facility] [address] [place], [place] [id number] Peg Driver: Cristian Acuña PhD, Phone: [phone] us Karan Mayo MD LAB BLOOD ORDERABLES Final Resu lt Performing Organization Address [facility]/ZIP Co de Phone Number [facility] [address] [place] [address], [place] [phone] [facility] [address] [place] [address], [place] [phone] * RPR, Rfx Qn RPR / Confirm TP (09/21/2024 10:17 AM EDT) RPR Non Reactive Non Reactive [facility] Blood 09/21/2024 10:1 7 AM EDT 09/21/2024 Narrative [facility] (AMBULATORY) - 09/22/2024 7:37 AM EDT Performed at: [facility] [address] [place] [id number] Peg Driver: Cristian Acuña PhD, Phone: [phone] us Karan Mayo MD LAB BLOOD ORDERABLES Final Resu lt Performing Organization Address City/[facility]/ZIP Co de Phone Number [facility] (AMBULATORY) [address] [place] [address], [place] [phone] [facility] [address] [place] [address], [place] [phone] * Antibody Screen (09/21/2024 10:17 AM EDT) Antibody Screen Negative Negative [facility] Blood 09/21/2024 10:1 7 AM EDT 09/21/2024 Narrative [facility] (AMBULATORY) - 09/22/2024 12:36 PM EDT Performed at: [facility] [address] [place] [id number] Peg Driver: Cristian Acuña PhD, Phone: [phone] us Karan Mayo MD BLOOD BANK TEST ORDERABLES Milena chantale Result [facility] ([facility]) [address] [place] [address], [facility] [address] [place] [address], [place] [phone] * [place] Biophysical Profile;Without Non-Stress Testing (09/21/2024 8:40 AM EDT) Anatomical Region Laterality Modality Body Radiographic Pily ging 09/21/2024 8:03 AM EDT Narrative 09/22/2024 5:38 PM EDT PAT NAME: PENNY URIBE MED REC#: [id number] DA: [id number] PAT GEND: F PAT TYPE: O EXAM JEAN-CLAUDE: [id number] REF PHYS DAYANNA MARVIN Indication ======== PIH Dx: Gestational hypertension, second trimester [O13.2 (ICD-10-CM)] Comparison Studies The findings of this study are compared to the prior ultrasound study dated 08/25/24 Method ======= Voluson E6, Transabdominal ultrasound examination. View: Sufficient ========= Navarro . Number of fetuses: 1 Dating ====== LMP on: 02/25/2024 GA by LMP 29 w + 6 d KAREN by LMP: 12/01/2024 GA by prior assessment 28 w + 0 d KAREN by prior assessment: 12/14/2024 Method of dating: Restore dating from previous exam Previous dating: based on stated KAREN, selected on 08/25/2024 Agreed KAREN of previous datin12/14/2024 Assigned: based on stated KAREN, selected on 08/25/2024 Assigned GA 28 w + 0 d Assigned KAREN: 12/14/2024 length 280 d General Evaluation Cardiac activity present. FHR 165 bpm. movements visualized. Presentation cephalic. Placenta Placental site: posterior. Amniotic Fluid Assessment Amount of AF: normal JD 14.2 cm. Q1 4.0 cm, Q2 3.6 cm, Q3 6.6 cm Biophysical Profile 2: breathing movements 2: Gross body movements 2: tone 2: Amniotic fluid volume 12/09 Biophysical profile score Anatomy Gender: female. Impression BPP 12/09. Vertex Properties Supervisor: KATHY Lovell Physician: Karan Mayo MD, FACOG Electronically signed by: Karan Mayo MD, FACOG at: 17:38 Procedure Note Karan Mayo MD - 09/22/2024 PAT NAME: PENNY URIBE [facility] REC#: [id number] DA: [id number] PAT GEND: F PAT TYPE: O EXAM JEAN-CLAUDE: [id number] REF PHYS DAYANNA MARVIN Indication ======== PIH Dx: Gestational hypertension, second trimester [O13.2 (ICD-10-CM)] Comparison Studies The findings of this study are compared to the prior ultrasound studydated 08/25/24 Method ======= Voluson E6, Transabdominal ultrasound examination. View: Sufficient ========= Navarro . Number of fetuses: 1 Dating ====== LMP on:02/25/2024 GA by LMP29 w + 6 d KAREN by LMP:12/01/2024 GA by prior [id number] w + 0 d KAREN by prior assessment:12/14/2024 Method of dating:Restore dating from previous exam Previous dating:based on stated KAREN, selected on 08/25/2024 Agreed KAREN of previous datin12/14/2024 Assigned:based on stated KAREN, selected on 08/25/2024 Assigned GA28 w + 0 d Assigned KAREN:12/14/2024 [id number] d General Evaluation Cardiac activity present. FHR 165 bpm. movements visualized. Presentation cephalic. Placenta Placental site: posterior. Amniotic Fluid Assessment Amount of AF: normal JD 14.2 cm. Q1 4.0 cm, Q2 3.6 cm, Q3 6.6 cm Biophysical Profile 2: breathing movements 2: Gross body movements 2: tone 2: Amniotic fluid volume 12/09 Biophysical profile score Anatomy Gender: female. Impression BPP 12/09. Vertex Properties Supervisor: KATHY Lovell Physician: Karan Mayo MD, FACOG Electronically signed by: Karan Mayo MD, FACOG at: 17:38 us Daaynna Marvin APRN IMG US ORDERABLES Final R esult * Chlamydia trachomatis, Neisseria gonorrhoeae, PCR - Urine, Urine, Clean Catch (04/22/2024 12:00 AM EST) Chlamydia trachomatis, MOJGAN Negative Negative [facility] Neisseria gonorrhoeae, MOJGAN Negative Negative [facility] Urine Urine specimen obtained by clean catch procedure / Unknown 04/22/2024 04/22/2024 Comment:Blood Release to pat i Tea [facility] - 04/25/2024 8:07 PM EST Performed at: 03 - Lab[address] [id number] Peg Driver: Vani Middleton MD, Phone: [phone] us Karan Mayo MD MICROBIOLOGY - GENERAL ORDERABL ES Final Result [facility] [address] [place] [address], [facility] [address] [place] [address], * LIQUID-BASED PAP SMEAR WITH HPV GENOTYPING REGARDLESS OF INTERPRETATION (JOANNA,COR,MAD) (03/24/2024 3:37 PM EST) Reference Lab Report [facility] [address] [place] [address] or [phone] Be Vergara M.D., Inside Sales Consultant PATIENT NAME LABORATORY NO. 65PENNY ADEN [id number] AGE SEX SSN CLIENT REF # [facility] 25 2000 F [id number] Anna GARDNER REQUESTING Jimmy [place] [address] DAYANNA MARVIN DATE COLLECTED DATE RECEIVED DATE REPORTED 03/24/2024 03/24/2024 03/28/2024 ThinPrep Pap with Cytyc Imaging DIAGNOSIS: Epithelial cell abnormality. (ASC) Atypical squamous cells of undetermined significance. COMMENT: Benign cellular changes associated with reactive/reparativ e changes are present. Professional interpretation rendered by Be Vergara M.D., F.C.A.P. at [facility], [facility], [address] [place] [address]. SPECIMEN ADEQUACY: SATISFACTORY FOR EVALUATION Transformation zone is present. SOURCE OF SPECIMEN: CERVICAL/ENDOCERV ICAL SLIDES: 1 CLINICAL HISTORY: Women's annual routine gynecological examination HPV HR-HPV POOL: Negative The Aptima HPV assay is an in vitro nucleic acid amplification test for the qualitative detection of E6/E7 viral messenger RNA from 14 high risk types of HPV in cervical specimens. The high risk HPV types detected include: 16, 18, 31, 33, 35, 39, 45, 51, 52, 56, 58, 59, 66, 68 PUMPING STATION SUPERVISOR: KAROL COLLINS(ASCP) REVIEWED, DIAGNOSED AND ELECTRONICALLY SIGNED BY: Be Vergara M.D., F.C.A.P. CPT CODES: 11449, 30898, 59199 03/28/2024 2:32 PM EST [facility] ThinPrep Vial Collection / Unknown 03/24/2024 3:37 PM EST 03/24/2024 3:37 PM EST Dayanna M Shavonne VENEER DRIER TAILER PATHOLOGY/CYTOLOGY ORDERA BLES Final Result [facility]
[address] [place] [address], [place] [phone] from Last 3 Months or Most Recently Relevant to Health Maintenance [facility] [employer] [facility] Advance Directives * CPR (Attempt to Resuscitate) (Latest Code Status on File) Date Activated Date Inactivated Comments 11/25/2024 6:15 AM 11/28/2024 6:01 PM Question Answer Comments Code Status (Patient has no pulse and is not breathing): CPR (Attempt to Resuscitate) Medical Interventions (Patie nt has pulse or is breathing): Full * CPR (Attempt to Resuscitate) Date Activated Date Inactivated Comments 11/25/2024 4:17 AM 11/25/2024 6:15 AM Question Answer Comments Code Status (Patient has no pulse and is not breathing): CPR (Attempt to Resuscitate) Medical Interventions (Patie nt has pulse or is breathing): Full * CPR (Attempt to Resuscitate) Date Activated Date Inactivated Comments 11/23/2024 8:20 PM 11/25/2024 4:17 AM Question Answer Comments Code Status (Patient has no pulse and is not breathing): CPR (Attempt to Resuscitate) Medical Interventions (Patie nt has pulse or is breathing): Full Support Level Of Support Discussed With: Patient * CPR (Attempt to Resuscitate) Date Activated Date Inactivated Comments 10/10/2024 4:29 PM 10/14/2024 4:26 PM Question Answer Comments Code Status (Patient has no pulse and is not breathing): CPR (Attempt to Resuscitate) Medical Interventions (Patie nt has pulse or is breathing): Full Support Level Of Support Discussed With: Patient Care Teams Account Planner Relationship Specialty Start Date End Date Sue Lieberman APRN [facility] [place] [phone] PCP - General Internal Medicine 03/09/24
--- OUTSIDE RECORDS SUMMARY | 2024-11-30 12:34 | XMS_ITS | Encounter Summary ---
[facility] Address [address] [place] [address] Care Team Providers Care Mens Locker Room Attendant Name Role Phone LiebermanSue ALEE Primary Care Provider [phone] Encounter Details Date Type Department Care Team (Late st Contact Info) Description 10/28/2024 Results Follow-Up [facility] [address] [place] [address] Shilpa De Leon APRN [address] [facility] [address] [place] [address] Social History Tobacco Use Types Packs/Day Years Used Date Smoking Tobacco: Never Smokeless Tobacco: Never Alcohol Use Standard Drinks/Week Comments Not Currently 2 (1 standard drink = 0.6 oz pur e alcohol) [facility] Utilities Answer Date Recorded In the past 12 months has [employer] by [employer], gas, oil, or water [employer] threatened to shut off services in your [...] and heating? Not hard at all 10/13/2024 [facility] - Occupational Stress Questionnaire Answer Date [...] GED or equivalent No 10/13/2024 Preferred Language Macanese 10/13/2024 PHQ-2 Answer Date Recorded Patient Health [...] 3:15 PM EDT Visit [facility] [address] [facility] [address] [place] [address] Sheldon Godoy, SUPERVISOR ELECTRONICS ASSEMBLY [address] [facility] [address] [place] [address] 09/22/2025 2:45 PM EDT Office Visit [facility] SLEEP MEDICINE [address] [facility] [address] [place] [id number] Dave Montaño, SUPERVISOR ELECTRONICS ASSEMBLY [address] [place] [address] documented as of this encounter Visit Diagnoses Not on filedocumented in this encounter Care Teams Mens Locker Room Attendant Relationship Specialty Start Date End Date Sue Lieberman APRN [address] [place] [id number] PCP - General Internal Medicine 03/09/24 documented as of this encounter
--- OUTSIDE RECORDS SUMMARY | 2024-11-30 12:34 | XMS_ITS | Encounter Summary ---
[facility] Address [address] [place] [address] Care Team Providers Care Stripper And Printer Name Role Phone LiebermanSue duran [facility] Primary Care Provider + [phone] Encounter Details Date Type Department Care Team (Latest Contact Info) Description 10/28/2024 Travel Social History Tobacco Use Types Packs/Day Years Used Date Smoking Tobacco: Never Smokeless Tobacco: Never Alcohol Use Standard Drinks/Week Comments Not Currently 2 (1 standard drink = 0.6 oz pur e alcohol) [facility] Utilities Answer Date Recorded In the past 12 months has [employer], gas, oil, or water company threatened [...] Not hard at all 10/13/2024 [facility]at [facility] - Occupational Stress [...] GED or equivalent No 10/13/2024 Preferred Language Ecuadorean 10/13/2024 PHQ-2 Answer Date Recorded Patient Health [...] 12/01/2024 3:15 PM EDT Visit [facility] O[facility] [address] [facility] [address] [place] [address] Sheldon Godoy, MALTHOUSE LABORER [address] [facility] [address] [place] [address] 09/22/2025 2:45 PM EDT Office Visit [facility] SLEEP MEDICINE [address] [facility] [address] [place] [address] Dave Montaño, MALTHOUSE LABORER [address] [place] [address] documented as of this encounter Visit Diagnoses Not on filedocumented in this encounter Care Teams Stripper And Printer Relationship Specialty Start Date End Date Sue Lieberman APRN [address] [place] [id number] PCP - General Internal Medicine 03/09/24 documented as of this encounter
--- OUTSIDE RECORDS SUMMARY | 2024-11-30 12:35 | XMS_ITS | Encounter Summary ---
[facility] [address] [place] [address] Care Team Providers Care Dyer Helper Name Role Phone LiebermanSue ALEE Primary Care Provider [phone] Encounter Details Date Type Department Care Team (Late st Contact Info) Description 11/02/2024 Results Follow-Up [facility] [address] [address] Rosalinda Uriostegui APRN [address] [place] [address] Social History Tobacco Use Types Packs/Day Years Used Date Smoking Tobacco: Never Smokeless Tobacco: Never Alcohol Use Standard Drinks/Week Comments Not Currently 2 (1 standard drink = 0.6 oz pur e alcohol) [facility] Utilities Answer Date Recorded In the past 12 months has [employer], gas, oil, or water [employer] threatened to shut off services in your [...] hard at all 10/13/2024 [facility] - Occupational Stress Questionnaire Answer [...] GED or equivalent No 10/13/2024 Preferred Language Rwandan 10/13/2024 PHQ-2 Answer Date Recorded Patient Health [...] Description 12/01/2024 3:15 PM EDT Visit [facility] [address] [facility] [address] [place] [address] Sheldon Godoy, MOTIVATIONAL SPEAKER [address] [facility] [address] [place] [address] 09/22/2025 2:45 PM EDT Office Visit [facility]ICINE [address] [facility] [address] [place] [phone] Dave Montaño, MOTIVATIONAL SPEAKER [address] [place] [address] documented as of this encounter Visit Diagnoses Not on filedocumented in this encounter Care Teams Dyer Helper Relationship Specialty Start Date End Date Sue Lieberman APRN [address] [place] [address] PCP - General Internal Medicine 03/09/24 documented as of this encounter
--- OUTSIDE RECORDS SUMMARY | 2024-11-30 12:35 | XMS_ITS | Encounter Summary ---
Author Organization [facility] ystem Address [address] [place] [address] Care Team Providers Care Physician Scribe Name Role Phone Sue Lieberman MANAGER OF SCHOOL Primary Care Provider [phone] Encounter Details Date Type Department Care Team (Late st Contact Info) Description 10/10/2024 Telephone [facility] OBGYN [address] [address] Bhavya Carter MD [address] [place] [address] Social History Tobacco Use Types Packs/Day Years Used Date Smoking Tobacco: Never Smokeless Tobacco: Never Alcohol Use Standard Drinks/Week Comments Not Currently 2 (1 standard drink = 0.6 oz pur e alcohol) Abuse Screen Answer Date Recorded Feels Unsafe at Home or Work/School no 10/10/2024 Feels Threatened by Someone no 01/2025 Does Anyone Try to Keep You From Having Contact with Others or Doing Things Outside Your Home? no 10/10/2024 Physical Signs of Abuse Present no 10/10/2024 Housing Stability Answer Date Recorded Current Living Arrangements home 01/2025 Potentially Unsafe Housing Conditions Not on aubree e 10/10/2024 Disabilities Answer Date Recorded Difficulty Concentrating, Remembering or Making Decisions no 10/10/2024 Difficulty Managing Errands Independently no 10/10/2024 Comments Yes Sex and Gender Information Value Date Recorded Sex Assigned at Female 10/01/2024 2:08 PM EDT Legal Sex Female 10:46 AM EDT Gender Identity Not on file Sexual Orientation Not on file documented as of this encounter Miscellaneous Notes * Telephone Encounter - Shilpa De Leon APRN - 10/10/2024 1:09 PM EDT Liver u/s scheduled for 8am tomorrow. Been extremely tired, feet and legs extremely swollen , pitting, almost couldn't get her shoes on.But they had a very active weekend, said she didn't get to elevate her feet much at all and she wasoutside a lot. Feeling good FM. Denies LOF/VB/BH, denies headache or vision changes. Taking 100mg labetalol once daily, BP's at home have been normal, haven't had any elevated since starting the BP. Discussed with Dr. Carter. Pt needs admission for ACS, discussed with Dr. Tellez, cab station attendant physician. Informed pt, she will leave work now and head in to triage. * Telephone Encounter - Angela Flor RegSched Rep - 10/10/2024 12:53 PM EDT PT CALLED AND WOULD LIKE A CALL BACK TO DISCUSS HER RECENT 24 HR URINE RESULTS SHE READ THE RESULTS AND SEEMS EXTREMELY HIGH documented in this encounter Plan of Treatment Upcoming Encounters Date Type Department Care Team (Late st Contact Info) Description 12/01/2024 3:15 PM EDT Visit [facility] OBGYN 1700 [facility] [address] [place] [address] Sheldon Godoy APRN 1700 [facility] [address] [place] [address] 09/22/2025 2:45 PM EDT Office Visit [facility] SLEEP MEDICINE 3000 [facility] [address] [place] [address] Dave Montaño, MANAGER OF SCHOOL [address] [place] [address] documented as of this encounter Visit Diagnoses Not on filedocumented in this encounter Care Teams Physician Scribe Relationship Specialty Start Date End Date Sue Lieberman, ALEE [address] [place] [address] PCP - General Internal Medicine 03/09/24 documented as of this encounter
--- OUTSIDE RECORDS SUMMARY | 2024-11-30 12:35 | XMS_ITS | Encounter Summary ---
[facility] Address [address] [place] [address] Care Team Providers Care Mechanist Name Role Phone Sue Lieberman CONICAL MIXER Primary Care Provider [phone] Encounter Details Date Type Department Care Team (Late st Contact Info) Description 09/30/2024 Results Follow-Up [facility] OBGYN [address] [place] [address] Dayanna Marvin, CONICAL MIXER [address] [place] [address] Social History Tobacco Use Types Packs/Day Years [...] encounter Miscellaneous Notes * Telephone Encounter - Ghislaine Pollock RegSched Rep - 09/30/2024 2:20 PM EDT Pt called to speak with dayanna marvin or nurse about lab results documented in this encounter Plan of Treatment Upcoming Encounters Date Type Department Care Team (Late st Contact Info) Description 12/01/2024 3:15 PM EDT Visit [facility] OBGYN 1700 [facility] [address] [place] [address] Sheldon Godoy, CONICAL MIXER 1700 [facility] [address] [place] [address] 09/22/2025 2:45 PM EDT Office Visit [facility] SLEEP MEDICINE 3000 [facility] [address] [place] [address] Dave Montaño, CONICAL MIXER [address] [place] [address] documented as of this encounter Visit Diagnoses Not on filedocumented in this encounter Care Teams Mechanist Relationship Specialty Start Date End Date Sue Lieberman APRN [address] [address] PCP - General Internal Medicine 03/09/24 documented as of this encounter
--- OUTSIDE RECORDS SUMMARY | 2024-11-30 12:35 | XMS_ITS | Encounter Summary ---
[facility] Address [address] [place] [address] Care Team Providers Care College Admissions Counselor Name Role Phone LiebermanSue duran DRY MOP MAKER Primary Care Provider + [phone] Encounter Details Date Type Department Care Team (Latest Contact Info) Description 10/25/2024 Travel Social History Tobacco Use Types Packs/Day Years Used Date Smoking Tobacco: Never Smokeless Tobacco: Never Alcohol Use Standard Drinks/Week Comments Not Currently 2 (1 standard drink = 0.6 oz pur e alcohol) [facility] Utilities Answer Date Recorded In the past 12 months has [employer] electric, gas, oil, or water company threatened [...] and heating? Not hard at all 10/13/2024 [facility] [place] of Occupat ional Health - Occupational Stress [...] GED or equivalent No 10/13/2024 Preferred Language Lao 10/13/2024 PHQ-2 Answer Date Recorded Patient Health [...] Info) Description 12/01/2024 3:[address] [facility] OBGYN 1700 [facility] [address] [place] [address] Sheldon Godoy, DRY MOP MAKER 1700 [facility] [address] [place] [address] 09/22/2025 2:45 PM EDT Office Visit [facility] SLEEP MEDICINE 3000 [facility] [address] [place] [address] Dave Montaño, DRY MOP MAKER [address] [place] [address] documented as of this encounter Visit Diagnoses Not on filedocumented in this encounter Care Teams College Admissions Counselor Relationship Specialty Start Date End Date Sue Lieberman APRN [address] [place] [address] PCP - General Internal Medicine 03/09/24 documented as of this encounter
--- OUTSIDE RECORDS SUMMARY | 2024-11-30 12:35 | XMS_ITS | Encounter Summary ---
Author Organization [facility] ystem Address [address] [place] [address] Care Team Providers Care Cargo Broker Name Role Phone Sue Lieberman APRN Primary Care Provider [phone] Reason for Visit * Reason Onset Date Comments FMLA ERROR 10/21/2024 Encounter Details Date Type Department Care Team (Late st Contact Info) Description 10/21/2024 Telephone [facility] OBGYN [address] [address] Bhavya Carter MD [address] [place] [address] FMLA ERROR Social History Tobacco Use Types Packs/Day Years Used Date Smoking Tobacco: Never Smokeless Tobacco: Never Alcohol Use Standard Drinks/Week Comments Not Currently 2 (1 standard drink = 0.6 oz pur e alcohol) [facility] Utilities Answer Date Recorded In the past 12 months has [employer], gas, oil, or water [employer] threatened to shut off services in your [...] and heating? Not hard at all 10/13/2024 [facility] [place] of Occupat ional Health - Occupational Stress [...] GED or equivalent No 10/13/2024 Preferred Language Congolese 10/13/2024 PHQ-2 Answer Date Recorded Patient Health Questionnaire-2 Score 0 10/13/2024 Comments Yes Sex and Gender Information Value Date Recorded Sex Assigned at Female 10/01/2024 2:08 PM EDT Legal Sex Female 10:46 AM EDT Gender Identity Not on file Sexual Orientation Not on file documented as of this encounter Miscellaneous Notes * Telephone Encounter - Jaclyn Chaves RegSched Rep - 10/21/2024 2:49 PM EDT Forms updated, scanned into chart, and sent to pt. * Telephone Encounter - Donna Robles RegSched Rep - 10/21/2024 12:47 PM EDT PENNY KEBEDE [phone] ON [facility] PAPERWORK P2 LINE 1 RIGHT NOW IT READS 12/14/24, IT SHOULD READ 10/20/24 ALSO ON SAME PAGE, 2 MORE TIMES IT SAYS 12/14/24, SHOULD READ 10/20/24 PAGE 3 LINE 8 IT READS 12/14/24, IT SHOULD READ PLEASE CORRECT AND PLACE BACK ON [facility]. documented in this encounter Plan of Treatment Upcoming Encounters Date Type Department Care Team (Late st Contact Info) Description 12/01/2024 3:15 PM EDT Visit [facility] OBGYN [address] [place] [address] Sheldon Godoy, CORE OVEN TENDER 1700 [facility] [address] [place] [address] 09/22/2025 2:45 PM EDT Office Visit [facility] SLEEP MEDICINE [address] [facility] [address] [place] [address] Dave Montaño, CORE OVEN TENDER [address] [place] [address] documented as of this encounter Visit Diagnoses Not on filedocumented in this encounter Care Teams Cargo Broker Relationship Specialty Start Date End Date Sue Lieberman APRN [address] [address] PCP - General Internal Medicine 03/09/24 documented as of this encounter
--- OUTSIDE RECORDS SUMMARY | 2024-11-30 12:35 | XMS_ITS | Encounter Summary ---
[facility] Address [address] [place] [address] Care Team Providers Care Clinic Charge Nurse Name Role Phone LiebermanSue duran CERTIFIED PERSONAL TRAINER Primary Care Provider + [phone] Encounter Details Date Type Department Care Team (Latest Contact Info) Description 10/18/2024 Travel Social History Tobacco Use Types Packs/Day Years Used Date Smoking Tobacco: Never Smokeless Tobacco: Never Alcohol Use Standard Drinks/Week Comments Not Currently 2 (1 standard drink = 0.6 oz pur e alcohol) [facility] Utilities Answer Date Recorded In the past 12 months has [employer] electric, gas, oil, or water company threatened [...] and heating? Not hard at all 10/13/2024 [facility] [place] of Occupat ional Health - Occupational Stress [...] GED or equivalent No 10/13/2024 Preferred Language Malagasy 10/13/2024 PHQ-2 Answer Date Recorded Patient Health [...] Visit [facility] OBGYN 1700 [facility] [address] [place] [address] Sheldon Godoy, CERTIFIED PERSONAL TRAINER 1700 [facility] [address] [place] [address] 09/22/2025 2:45 PM EDT Office Visit [facility] SLEEP MEDICINE 3000 [facility] [address] [place] [address] Dave Montaño, CERTIFIED PERSONAL TRAINER [address] [place] [address] documented as of this encounter Visit Diagnoses Not on filedocumented in this encounter Care Teams Clinic Charge Nurse Relationship Specialty Start Date End Date Sue Lieberman APRN [address] [place] [address] PCP - General Internal Medicine 03/09/24 documented as of this encounter
--- OUTSIDE RECORDS SUMMARY | 2024-11-30 12:35 | XMS_ITS | Encounter Summary ---
[facility] Address [address] [place] [address] Care Team Providers Care Nursing Support Worker Name Role Phone MioCherieSue ALEE Primary Care Provider [phone] Encounter Details Date Type Department Care Team (Latest Contact Info) Description 10/10/2024 Travel Social History Tobacco Use Types Packs/Day [...] as of this encounter Functional Status * Question Answer Date of Assessment Author 1. Wish to be (Past 1 Month) No 025 4:51 PM EDT Alicia Day, RN 2. Non-Specific Active Suici alexis Thoughts (Past 1 Month) No 10/10/2024 4:51 PM EDT Merrick Day RN * Calculated C-SSRS Risk Score (Lifetime/Recent) Answer Date of Assessment Author No Risk Indicated 10/10/2024 4:51 PM EDT Alicia Day RN * [place] Suicide Severity Rating Scale (Screener/Recent Self-Report) Question Answer Date of Assessment Author 6. Suicidal Behavior (Lifetime) No 4:51 PM EDT Alicia Day RN documented as of this encounter Plan of Treatment Upcoming Encounters Date Type Department Care Team (Late st Contact Info) Description 12/01/2024 3:15 PM EDT Visit [facility] OBGYN 1700 [facility] [address] [place] [address] Sheldon Godoy, PARTS WASHER 1700 [facility] [address] [place] [address] 09/22/2025 2:45 PM EDT Office Visit [facility] SLEEP MEDICINE 3000 [facility] [address] [place] [address] Dave Montaño, PARTS WASHER [address] [place] [address] documented as of this encounter Visit Diagnoses Not on filedocumented in this encounter Care Teams Nursing Support Worker Relationship Specialty Start Date End Date Sue Lieberman APRN [address] [place] [address] PCP - General Internal Medicine 03/09/24 documented as of this encounter
--- OUTSIDE RECORDS SUMMARY | 2024-11-30 12:35 | XMS_ITS | Encounter Summary ---
[facility] Address [address] [place] [address] Care Team Providers Care Assembler Cards And Announcements Name Role Phone Sue Lieberman ALEE Primary Care Provider [phone] Encounter Details Date Type Department Care Team (Latest Contact Info) Description 10/07/2024 Travel Social History Tobacco Use Types Packs/Day [...] Info) Description 12/01/2024 3:15 PM EDT Visit [facility] OBGYN [address] [facility] [address] [place] [phone] Sheldon Godoy, BULL RIVETER 1700 [facility] [address] [place] [address] 09/22/2025 2:45 PM EDT Office Visit [facility] SLEEP MEDICINE 3000 [facility] [address] [place] [phone] Dave Montaño, BULL RIVETER [address] [place] [id number] documented as of this encounter Visit Diagnoses Not on filedocumented in this encounter Care Teams Assembler Cards And Announcements Relationship Specialty Start Date End Date Sue Lieberman APRN [address] [address] PCP - General Internal Medicine 03/09/24 documented as of this encounter
--- OUTSIDE RECORDS SUMMARY | 2024-11-30 12:35 | XMS_ITS | Encounter Summary ---
[facility] Address [address] [place] [address] Care Team Providers Care Tutoring Clinician Name Role Phone MioSue ALEE Primary Care Provider [phone] Encounter Details Date Type Department Care Team (Late st Contact Info) Description 10/31/2024 Results Follow-Up [facility] OBGYN [address] [address] Rosalinda Uriostegui APRN [address] [place] [address] Social History Tobacco Use Types Packs/Day Years Used Date Smoking Tobacco: Never Smokeless Tobacco: Never Alcohol Use Standard Drinks/Week Comments Not Currently 2 (1 standard drink = 0.6 oz pur e alcohol) [facility] Utilities Answer Date Recorded In the past 12 months has [employer], gas, oil, or water [employer] threatened to shut off services in your [...] and heating? Not hard at all 10/13/2024 [facility] - Occupational Stress Questionnaire Answer Date [...] GED or equivalent No 10/13/2024 Preferred Language Finnish 10/13/2024 PHQ-2 Answer Date Recorded Patient Health [...] Info) Description 12/01/2024 3:15 PM EDT Visit [facility] OBGYN 1700 [facility] 701 [place] [address] Sheldon Godoy, NATIONAL ACCOUNT REPRESENTATIVE 1700 [facility] [address] [place] [address] 09/22/2025 2:45 PM EDT Office Visit [facility] SLEEP MEDICINE 3000 [facility] [address] [place] [address] Dave Montaño, NATIONAL ACCOUNT REPRESENTATIVE [address] [place] [address] documented as of this encounter Visit Diagnoses Not on filedocumented in this encounter Care Teams Tutoring Clinician Relationship Specialty Start Date End Date Sue Lieberman APRN [address] [place] [address] PCP - General Internal Medicine 03/09/24 documented as of this encounter
--- OUTSIDE RECORDS SUMMARY | 2024-11-30 12:35 | XMS_ITS | Clinical Summary ---
Author Organization [facility] Address [address] [facility] [address] [place] [address] Care Team Providers Care Survey Researcher Name Role Phone Dave Montaño HUMAN RESOURCES REPRESENTATIVE Primary Care Provider [phone] Social History Tobacco Use Types Packs/Day Years Used Date Smoking Tobacco: Never Assessed Comments Unknown Sex and Gender Information Value Date Recorded Sex Assigned at Not on file Legal Sex Female 3:52 PM EST Gender Identity Not on file Sexual Orientation Not on file Plan of Treatment Health Maintenance Due Date Last Done Comments HIV Screening 1999 Hepatitis C Screening 1999 MMR Vaccines (1 of 1 - Stand kala series) 2000 Varicella Vaccines (1 of 2 - 13+ 2-dose series) 2012 HPV Vaccines (1 - 3-dose series) 2014 Hepatitis B Screening 2017 DTaP/Tdap/Td Vaccines (1 - Tdap) 2018 Hepatitis B Vaccines (1 of 3 - 19+ 3-dose series) 2018 Pap Smear 2020 COVID-19 Vaccine (1 - 2023-2 5 season) 2024 Depression Risk Screening 05/04/2024 SDOH Screening 05/04/2024 Influenza Vaccine (#1) 2025 Zoster Vaccines (1 of 2) 2049 HIB Vaccines Aged Out No longer eligi ble based on patient's age to complete this topic Hepatitis A Vaccines Aged Out No long er eligible based on patient's age to complete this topic IPV Vaccines Aged Out No longer eligi ble based on patient's age to complete this topic Meningococcal B Vaccine Aged Out No l onger eligible based on patient's age to complete this topic Meningococcal Vaccine Aged Out No goyo sachi eligible based on patient's age to complete this topic Pneumococcal Vaccine Aged Out No long er eligible based on patient's age to complete this topic Rotavirus Vaccines Aged Out No longer eligible based on patient's age to complete this topic Insurance NEVIN Care Teams Survey Researcher Relationship Specialty Start Date End Date Dave Montaño NP [address] [place] [address] PCP - General 07/06/24
--- OUTSIDE RECORDS SUMMARY | 2024-11-30 12:35 | XMS_ITS | Encounter Summary ---
Author Organization [facility] ystem Address [address] [place] [address] Care Team Providers Care Insect Control Inspector Name Role Phone Sue Lieberman INSPECTOR ALUMINUM BOAT Primary Care Provider [phone] Encounter Details Date Type Department Care Team (Late st Contact Info) Description 10/19/2024 Results Follow-Up [facility] OBGYN [address] [address] Bhavya Carter MD [address] [place] [address] Social History Tobacco Use Types Packs/Day Years Used Date Smoking Tobacco: Never Smokeless Tobacco: Never Alcohol Use Standard Drinks/Week Comments Not Currently 2 (1 standard drink = 0.6 oz pur e alcohol) [facility] Utilities Answer Date Recorded In the past 12 months has [employer], gas, oil, or water [employer] threatened to shut off services in your [...] and heating? Not hard at all 10/13/2024 [facility] [place] [facility] - Occupational Stress Questionnaire Answer Date Recorded [...] GED or equivalent No 10/13/2024 Preferred Language Wallisian 10/13/2024 PHQ-2 Answer Date Recorded Patient Health [...] 9:25 PM EDT Peggy Chacon RN * [place] Suicide Severity Rating Scale (Screener/Recent Self-Report) Question Answer Date of Assessment Author 6. Suicidal Behavior (Lifetime) No 10/19/2024 9:25 PM EDT Dileep Doan RN documented as of this encounter Plan of Treatment Upcoming Encounters Date Type Department Care Team (Late st Contact Info) Description 12/01/2024 3:15 PM EDT Visit [facility] OBGYN 1700 [facility] [address] [place] [address] Sheldon Godoy, ALEE 1700 [facility] [address] [place] [address] 09/22/2025 2:45 PM EDT Office Visit [facility] SLEEP MEDICINE 3000 [facility] [address] [place] [phone] Dave Montaño, INSPECTOR ALUMINUM BOAT [address] [place] [address] documented as of this encounter Visit Diagnoses Not on filedocumented in this encounter Care Teams Insect Control Inspector Relationship Specialty Start Date End Date Sue Lieberman, INSPECTOR ALUMINUM BOAT [address] [place] [address] PCP - General Internal Medicine 03/09/24 documented as of this encounter
--- OUTSIDE RECORDS SUMMARY | 2024-11-30 12:35 | XMS_ITS | Encounter Summary ---
Author [facility] Address [address] [place] [address] Care Team Providers Care Assistant Distribution Manager Name Role Phone LiebermanSue ALEE Primary Care Provider [phone] Encounter Details Date Type Department Care Team (Late st Contact Info) Description 10/19/2024 Results Follow-Up [facility] OBGYN [address] [place] [address] Shilpa De Leon APRN 1700 [facility] [address] [place] [address] Social History Tobacco Use Types Packs/Day Years Used Date Smoking Tobacco: Never Smokeless Tobacco: Never Alcohol Use Standard Drinks/Week Comments Not Currently 2 (1 standard drink = 0.6 oz pur e alcohol) [facility] Utilities Answer Date Recorded In the past 12 months has [employer], gas, oil, or water [employer] threatened to shut off services in your [...] and heating? Not hard at all 10/13/2024 [facility] [place] [facility] - Occupational Stress Questionnaire Answer Date [...] 9:25 PM EDT Peggy Chacon RN * [place] Suicide Severity Rating Scale (Screener/Recent Self-Report) Question Answer Date of Assessment Author 6. Suicidal Behavior (Lifetime) No 10/19/2024 9:25 PM EDT Dileep Doan RN documented as of this encounter Plan of Treatment Upcoming Encounters Date Type Department Care Team (Late st Contact Info) Description 12/01/2024 3:15 PM EDT Visit [facility] OBGYN 1700 [facility] [address] [place] [address] Sheldon Godoy, ALEE 1700 [facility] [address] [place] [address] 09/22/2025 2:45 PM EDT Office Visit [facility] SLEEP MEDICINE 3000 [facility] [address] [place] [phone] Dave Montaño, FLOOR COVERING LAYER [address] [place] [address] documented as of this encounter Visit Diagnoses Not on filedocumented in this encounter Care Teams Assistant Distribution Manager Relationship Specialty Start Date End Date Sue Lieberman, FLOOR COVERING LAYER [address] [place] [address] PCP - General Internal Medicine 03/09/24 documented as of this encounter
--- OUTSIDE RECORDS SUMMARY | 2024-11-30 12:35 | XMS_ITS | Encounter Summary ---
[facility] Address [address] [place] [address] Care Team Providers Care Trainer Name Role Phone LiebermanSue duran SAW HANDLE ASSEMBLER Primary Care Provider + [phone] Encounter Details Date Type Department Care Team (Latest Contact Info) Description 10/31/2024 Travel Social History Tobacco Use Types Packs/Day Years Used Date Smoking Tobacco: Never Smokeless Tobacco: Never Alcohol Use Standard Drinks/Week Comments Not Currently 2 (1 standard drink = 0.6 oz pur e alcohol) [facility] Utilities Answer Date Recorded In the past 12 months has [employer] electric, gas, oil, or water company threatened [...] and heating? Not hard at all 10/13/2024 [facility] [place] of Occupat ional Health - Occupational Stress [...] Info) Description 12/01/2024 3:15 PM EDT Visit [facility] OBGYN 1700 [facility] 701 [place] [address] Sheldon Godoy, SAW HANDLE ASSEMBLER 1700 [facility] [address] [place] [address] 09/22/2025 2:45 PM EDT Office Visit [facility] SLEEP MEDICINE 3000 [facility] 240 [place] [address] Dave Montaño, SAW HANDLE ASSEMBLER 2400 [place] [address] documented as of this encounter Visit Diagnoses Not on filedocumented in this encounter Care Teams Trainer Relationship Specialty Start Date End Date Sue Lieberman APRN [address] [place] [address] PCP - General Internal Medicine 03/09/24 documented as of this encounter
--- OUTSIDE RECORDS SUMMARY | 2024-11-30 12:35 | XMS_ITS | Encounter Summary ---
Author Organization [facility] Address [address] [place] [address] Care Team Providers Care Buying Intern Name Role Phone LiebermanSue duran MOMD TEACHER Primary Care Provider + [phone] Encounter Details Date Type Department Care Team (Latest Contact Info) Description 10/19/2024 Travel Social History Tobacco Use Types Packs/Day Years Used Date Smoking Tobacco: Never Smokeless Tobacco: Never Alcohol Use Standard Drinks/Week Comments Not Currently 2 (1 standard drink = 0.6 oz pur e alcohol) [facility] Utilities Answer Date Recorded In the past 12 months has [employer] electric, gas, oil, or water company threatened [...] and heating? Not hard at all 10/13/2024 [facility] [place] of Occupat ional Health - Occupational Stress [...] GED or equivalent No 10/13/2024 Preferred Language Romanian 10/13/2024 PHQ-2 Answer Date Recorded Patient Health [...] 9:25 PM EDT Peggy Chacon RN * [place] Suicide Severity Rating Scale (Screener/Recent Self-Report) Question Answer Date of Assessment Author 6. Suicidal Behavior (Lifetime) No 10/19/2024 9:25 PM EDT Dileep Doan RN documented as of this encounter Plan of Treatment Upcoming Encounters Date Type Department Care Team (Late st Contact Info) Description 12/01/2024 3:15 PM EDT Visit [facility] OBGYN 1700 [facility] 701 [place] [address] Sheldon Godoy MOMD TEACHER [address] [facility] [address] [place] [address] 09/22/2025 2:45 PM EDT Office Visit [facility] SLEEP MEDICINE 3000 [facility] 240 [place] [address] Dave Montaño, MOMD TEACHER 2400 [place] [address] documented as of this encounter Visit Diagnoses Not on filedocumented in this encounter Care Teams Buying Intern Relationship Specialty Start Date End Date Sue Lieberman APRN [address] [place] [place] [address] JASMYNE WATTS [id number] PCP - General Internal Medicine 03/09/24 documented as of this encounter
--- OUTSIDE RECORDS SUMMARY | 2024-11-30 12:35 | XMS_ITS | Encounter Summary ---
Author Organization [facility] Address [address] [place] [address] Care Team Providers Care Cardiac Rn Name Role Phone Sue Lieberman APRN Primary Care Provider [phone] Reason for Visit * Reason Onset Date Comments CARTER- OB FOLLOW UP 10/14/2024 Encounter Details Date Type Department Care Team (Late st Contact Info) Description 10/14/2024 Telephone [facility] OBGYN [address] [address] Bhavya Carter MD 1700 [place] [address] CARTER- OB FOLLOW UP Social History Tobacco Use Types Packs/Day Years Used Date Smoking Tobacco: Never Smokeless Tobacco: Never Alcohol Use Standard Drinks/Week Comments Not Currently 2 (1 standard drink = 0.6 oz pur e alcohol) [facility] Utilities Answer Date Recorded In the past 12 months has [employer], gas, oil, or water company threatened to [...] and heating? Not hard at all 10/13/2024 [facility] of Occupat ional [facility] - Occupational Stress Questionnaire Answer Date [...] GED or equivalent No 10/13/2024 Preferred Language Kyrgyz 10/13/2024 PHQ-2 Answer Date Recorded Patient Health Questionnaire-2 Score 0 10/13/2024 Comments Yes Sex and Gender Information Value Date Recorded Sex Assigned at Female 10/01/2024 2:08 PM EDT Legal Sex Female 10:46 AM EDT Gender Identity Not on file Sexual Orientation Not on file documented as of this encounter Miscellaneous Notes * Telephone Encounter - Trisha Ovalles RegSched Rep - 10/14/2024 3:06 PM EDT RETURNED CALL, LVM * Telephone Encounter - Corin Mancuso RegSched Rep - 10/14/2024 2:00 PM EDT Caller: BROCK Zamora AT [facility] Relationship to patient: NURSE Best call back number: [phone] Chief complaint: DR. CARTER IS WANTING TO START SEEING THE PT 2X'S A WK, PT HAS APPT ON 10/20 OF NEXT WK BUT WANTS PT SEEN ON 10/18. HUB WAS UNABLE TO WT Type of visit: OB FOLLOW UP Requested date: 10/18 CONTACT PT FOR APPT AT [phone] documented in this encounter Plan of Treatment Upcoming Encounters Date Type Department Care Team (Late st Contact Info) Description 12/01/2024 3:15 PM EDT Visit [facility] OBGYN [address] [place] [place] [address] Sheldon Godoy, MANAGER CRITICAL CARE UNIT 1700 [facility] [address] [place] [address] 09/22/2025 2:45 PM EDT Office Visit [facility] SLEEP MEDICINE 3000 [facility] [place] [place] [address] Dave Montaño, MANAGER CRITICAL CARE UNIT 2400 [place] [address] documented as of this encounter Visit Diagnoses Not on filedocumented in this encounter Care Teams Cardiac Rn Relationship Specialty Start Date End Date Sue Lieberman APRN [address] [address] PCP - General Internal Medicine 03/09/24 documented as of this encounter
--- OUTSIDE RECORDS SUMMARY | 2024-11-30 12:35 | XMS_ITS | Encounter Summary ---
Author [facility] Address [address] [place] [address] Care Team Providers Care Inspector Tool Name Role Phone Mio Sue ALEE Primary Care Provider [phone] Encounter Details Date Type Department Care Team (Late st Contact Info) Description 10/10/2024 Prep for Surgery [facility] [address] [place] [address] Shilpa De Leon APRN 1700 [facility] [address] [place] [address] Pre-eclampsia in third trimester (Primary Dx) Social History Tobacco Use Types [...] No 025 4:51 PM EDT Alicia Day, TO[place]IE 2. Non-Specific Active Suici alexis Thoughts (Past 1 Month) No 10/10/2024 4:51 PM EDT Merrick Day RN * Calculated C-SSRS Risk Score (Lifetime/Recent) Answer Date of Assessment Author No Risk Indicated 10/10/2024 4:51 PM EDT Alicia Day RN * [place] Suicide Severity Rating Scale (Screener/Recent Self-Report) Question Answer Date of Assessment Author 6. Suicidal Behavior (Lifetime) No 4:51 PM EDT Alicia Day RN documented as of this encounter Plan of Treatment Upcoming Encounters Date Type Department Care Team (Late st Contact Info) Description 12/01/2024 3:15 PM EDT Visit [facility] OBGYN 1700 [facility] 701 [place] [address] Sheldon Godoy, LABEL DRIER 1700 [facility] [address] [place] [address] 09/22/2025 2:45 PM EDT Office Visit [facility] SLEEP MEDICINE 3000 [facility] 240 [place] [address] Dave Montaño, LABEL DRIER 2400 [place] [address] documented as of this encounter Visit Diagnoses Diagnosis Pre-eclampsia in third trimester- Primary documented in this encounter Care Teams Inspector Tool Relationship Specialty Start Date End Date Sue Lieberman APRN [address] [place] [address] PCP - General Internal Medicine 03/09/24 documented as of this encounter
--- OUTSIDE RECORDS SUMMARY | 2024-11-30 12:36 | XMS_ITS | Encounter Summary ---
[facility] Organization [facility] Address [address] [place] [address] Care Team Providers Care Non Profit Director Name Role Phone Sue Lieberman DIRECTOR DRUG SAFETY Primary Care Provider [phone] Encounter Details Date Type Department Care Team (Late st Contact Info) Description 10/06/2024 Results Follow-Up [facility] OBGYN [address] [place] [address] Dayanna Marvin, DIRECTOR DRUG SAFETY 1700 [place] [address] Social History Tobacco Use Types Packs/Day Years [...] Visit [facility] OBGYN 1700 [facility] [address] [place] [address] Sheldon Godoy, DIRECTOR DRUG SAFETY 1700 [facility] [address] [place] [address] 09/22/2025 2:45 PM EDT Office Visit [facility] SLEEP MEDICINE 3000 [facility] [address] [place] [address] Dave Montaño, DIRECTOR DRUG SAFETY 2400 [place] [address] documented as of this encounter Visit Diagnoses Not on filedocumented in this encounter Care Teams Non Profit Director Relationship Specialty Start Date End Date Sue Lieberman APRN [facility] [address] [address] PCP - General Internal Medicine 03/09/24 documented as of this encounter
--- OUTSIDE RECORDS SUMMARY | 2024-11-30 12:36 | XMS_ITS | Encounter Summary ---
Author Organization [facility] Address [address] [place] [address] Care Team Providers Care Nuclear Licensing Engineer Name Role Phone Sue Lieberman WIND TURBINE ELECTRICAL ENGINEER Primary Care Provider [phone] Encounter Details Date Type Department Care Team (Late st Contact Info) Description 11/16/2024 Results Follow-Up [facility] OBGYN [address] [address] Bhavya Carter MD 1700 [place] [address] Social History Tobacco Use Types Packs/Day Years Used Date Smoking Tobacco: Never Smokeless Tobacco: Never Alcohol Use Standard Drinks/Week Comments Not Currently 2 (1 standard drink = 0.6 oz pur e alcohol) [facility] Utilities Answer Date Recorded In the past 12 months has [employer], gas, oil, or water [employer] threatened to shut off services in your [...] and heating? Not hard at all 10/13/2024 [facility] - Occupational Stress Questionnaire Answer [...] GED or equivalent No 10/13/2024 Preferred Language Spanish 10/13/2024 PHQ-2 Answer Date Recorded Patient Health [...] Info) Description 12/01/2024 3:15 PM EDT Visit [facility] OBGYN 1700 [facility] 701 [place] [address] Sheldon Godoy, WIND TURBINE ELECTRICAL ENGINEER 1700 [facility] [address] [place] [address] 09/22/2025 2:45 PM EDT Office Visit [facility] SLEEP MEDICINE 3000 [facility] 240 [place] [address] Dave Montaño, WIND TURBINE ELECTRICAL ENGINEER 2400 [place] [address] documented as of this encounter Visit Diagnoses Not on filedocumented in this encounter Care Teams Nuclear Licensing Engineer Relationship Specialty Start Date End Date Sue Lieberman APRN [address] [place] [address] PCP - General Internal Medicine 03/09/24 documented as of this encounter
--- OUTSIDE RECORDS SUMMARY | 2024-11-30 12:36 | XMS_ITS | Encounter Summary ---
Author Organization [facility] Address [address] [place] [address] Care Team Providers Care Industrial Relations Counselor Name Role Phone Sue Lieberman HEARING AID ASSISTANT Primary Care Provider [phone] Encounter Details Date Type Department Care Team (Late st Contact Info) Description 09/20/2024 Results Follow-Up [facility] OBGYN [address] [place] [address] Dayanna Marvin, HEARING AID ASSISTANT 1700 [facility] [address] [place] [address] Social History Tobacco Use Types Packs/Day Years [...] EDT Visit [facility] OBGYN 1700 [facility] [address] [place] [address] Sheldon Godoy, HEARING AID ASSISTANT 1700 [facility] [address] [place] [address] 09/22/2025 2:45 PM EDT Office Visit [facility] SLEEP MEDICINE 3000 [facility] [address] [place] [address] Dave Montaño, HEARING AID ASSISTANT [address] [place] [address] documented as of this encounter Visit Diagnoses Not on filedocumented in this encounter Care Teams Industrial Relations Counselor Relationship Specialty Start Date End Date Sue Lieberman, HEARING AID ASSISTANT [facility] [address] [address] PCP - General Internal Medicine 03/09/24 documented as of this encounter
--- OUTSIDE RECORDS SUMMARY | 2024-11-30 12:36 | XMS_ITS | Encounter Summary ---
Author Organization [facility] Address [address] [place] [address] Care Team Providers Care Director Of Email Marketing Name Role Phone LiebermanSeu ALEE Primary Care Provider + [phone] Encounter Details Date Type Department Care Team (Latest Contact Info) Description 11/23/2024 Travel Social History Tobacco Use Types Packs/Day Years Used Date Smoking Tobacco: Never Passive Smoke Exposure: Never Smokeless Tobacco: Never Alcohol Use Standard Drinks/Week Comments Not Currently 2 (1 standard drink = 0.6 oz pur e alcohol) [facility] Utilities Answer Date Recorded In the past 12 months has [employer] electric, gas, oil, or water company threatened [...] and heating? Not hard at all 11/23/2024 [facility] [place] of Occupat ional Health - Occupational Stress [...] GED or equivalent No 11/23/2024 Preferred Language Brazilian 11/23/2024 PHQ-2 Answer Date Recorded Patient Health [...] 9:02 PM EDT Jn Millan RN * [place] Suicide Severity Rating Scale (Screener/Recent Self-Report) Question Answer Date of Assessment Author 6. Suicidal Behavior (Lifetime) No 9:02 PM KYLERT Jn Millan RN * Question Answer Date of Assessment Author Little interest or pleasure in doing things Not at all 11/23/2024 10:36 PM KYLERT Jn Millan RN Feeling down, depressed, or hopeless Not at all 11/23/2024 10:36 PM EDT Jn Millan RN documented as of this encounter Plan of Treatment Upcoming Encounters Date Type Department Care Team (Late st Contact Info) Description 12/01/2024 3:15 PM EDT Visit [facility] OBGYN 1700 [facility] 701 [place] [address] Sheldon Godoy APRN 1700 [facility] [address] [place] [address] 09/22/2025 2:45 PM EDT Office Visit [facility] SLEEP MEDICINE 3000 [facility] [address] [place] [address] Dave Montaño, PROFESSOR OF KINESIOLOGY 24[address] [place] [address] documented as of this encounter Visit Diagnoses Not on filedocumented in this encounter Care Teams Director Of Email Marketing Relationship Specialty Start Date End Date Sue Lieberman, PROFESSOR OF KINESIOLOGY [address] [address] PCP - General Internal Medicine 03/09/24 documented as of this encounter
--- OUTSIDE RECORDS SUMMARY | 2024-11-30 12:36 | XMS_ITS | Encounter Summary ---
Author Organization [facility] Address [address] [place] [address] Care Team Providers Care Server Programmer Name Role Phone Sue Lieberman ALEE Primary Care Provider [phone] Encounter Details Date Type Department Care Team (Latest Contact Info) Description 10/03/2024 Travel Social History Tobacco Use Types Packs/Day [...] Info) Description 12/01/2024 3:15 PM EDT Visit [facility] OBGYN 1700 [facility] [address] [place] [phone] Sheldon Godoy, DRY GOODS INSPECTOR 1700 [facility] [address] [place] [address] 09/22/2025 2:45 PM EDT Office Visit [facility] SLEEP MEDICINE 3000 [facility] [address] [place] [phone] Dave Montaño, DRY GOODS INSPECTOR [address] [place] [id number] documented as of this encounter Visit Diagnoses Not on filedocumented in this encounter Care Teams Server Programmer Relationship Specialty Start Date End Date Sue Lieberman APRN [address] [address] PCP - General Internal Medicine 03/09/24 documented as of this encounter
--- OUTSIDE RECORDS SUMMARY | 2024-11-30 12:36 | XMS_ITS | Encounter Summary ---
[facility] Address [address] [place] [address] Care Team Providers Care Head Greenskeeper Name Role Phone Sue Lieberman APRN Primary Care Provider [phone] Encounter Details Date Type Department Care Team (Late st Contact Info) Description 09/22/2024 Results Follow-Up [facility] OBGYN [address] [address] Bhavya Carter MD [address]00 [place] [address] Social History Tobacco Use Types Packs/Day Years [...] on file documented as of this encounter Progress Notes * Bhavya Carter MD - 09/22/2024 9:24 AM EDT Elevated liver functions- normal platelets. Could be viral or not related to her BP but lets repeatPEP and BP check tomorrow. documented in this encounter Plan of Treatment Upcoming Encounters Date Type Department Care Team (Late st Contact Info) Description 12/01/2024 3:15 PM EDT Visit [facility] OBGYN 1700 [facility] 701 [place] [address] Sheldon Godoy, MORTGAGE CLOSER 1700 [facility] [address] [place] [address] 09/22/2025 2:45 PM EDT Office Visit [facility] SLEEP MEDICINE 3000 [facility] [address] [place] [address] Dave Montaño, MORTGAGE CLOSER [address] [place] [address] documented as of this encounter Visit Diagnoses Not on filedocumented in this encounter Care Teams Head Greenskeeper Relationship Specialty Start Date End Date Sue Lieberman APRN [facility] [address] [address] PCP - General Internal Medicine 03/09/24 documented as of this encounter
--- OUTSIDE RECORDS SUMMARY | 2024-11-30 12:36 | XMS_ITS | Encounter Summary ---
Author Organization [facility] Address [address] [place] [address] Care Team Providers Care Bottom Ironer Name Role Phone MioSue ALEE Primary Care Provider [phone] Encounter Details Date Type Department Care Team (Late st Contact Info) Description 11/23/2024 Prep for Surgery [facility] ONLY [address] [place] [address] Bhavya Carter MD 1700 [facility] 701 [place] [address] Social History Tobacco Use Types Packs/Day Years Used Date Smoking Tobacco: Never Passive Smoke Exposure: Never Smokeless Tobacco: Never Alcohol Use Standard Drinks/Week Comments Not Currently 2 (1 standard drink = 0.6 oz pur e alcohol) [facility] Utilities Answer Date Recorded In the past 12 months has [employer], [employer], oil, or water [employer] threatened to shut off services in your [...] and heating? Not hard at all 11/23/2024 [facility] of Occupat ional Health - [...] GED or equivalent No 11/23/2024 Preferred Language Mosotho 11/23/2024 PHQ-2 Answer Date Recorded Patient Health [...] Info) Description 12/01/2024 3:15 PM EDT Visit [facility] OBGYN 1700 [facility] 701 [place] [address] Sheldon Godoy, CONTINUOUS PICKLING LINE PICKLER HELPER 1700 [facility] [address] [place] [address] 09/22/2025 2:45 PM EDT Office Visit [facility] SLEEP MEDICINE 3000 [facility] 240 [place] [address] Dave Montaño, CONTINUOUS PICKLING LINE PICKLER HELPER [address]00 [place] [address] documented as of this encounter Visit Diagnoses Not on filedocumented in this encounter Care Teams Bottom Ironer Relationship Specialty Start Date End Date Sue Lieberman APRN [address] [place] [address] [address] [place] [address] PCP - General Internal Medicine 03/09/24 documented as of this encounter
--- OUTSIDE RECORDS SUMMARY | 2024-11-30 12:36 | XMS_ITS | Encounter Summary ---
Author Organization [facility] Address [address] [place] [address] Care Team Providers Care Box Annealer Name Role Phone Sue Lieberman ALEE Primary Care Provider [phone] Encounter Details Date Type Department Care Team (Late st Contact Info) Description 09/25/2024 Results Follow-Up [facility] 1700 [facility] [place] [address] [place], [place] [address] Rosalinda Uriostegui APRN 1700 [facility] [address] [place] [address] Social History Tobacco Use Types Packs/Day Years [...] Description 12/01/2024 3:15 PM EDT Visit [facility] 1700 [facility] [place] [address] [place] [address] Sheldon Godoy APRN 1700 [facility] [address] [place] [address] 09/22/2025 2:45 PM EDT Office Visit [facility] SLEEP MEDICINE 3000 [facility] [address] [place] [address] Dave Montaño, YARD DRIVER [address]00 [place] [address] documented as of this encounter Visit Diagnoses Diagnosis Iron deficiency anemia during - Primary documented in this encounter Care Teams Box Annealer Relationship Specialty Start Date End Date Sue Lieberman APRN [address] [place] [address] PCP - General Internal Medicine 03/09/24 documented as of this encounter
--- OUTSIDE RECORDS SUMMARY | 2024-11-30 12:36 | XMS_ITS | Encounter Summary ---
[facility] Address [address] [place] [address] Care Team Providers Care Plate Maker Zinc Name Role Phone LiebermanSue duran LIFE SKILLS CONSULTANT Primary Care Provider + [phone] Encounter Details Date Type Department Care Team (Latest Contact Info) Description 11/22/2024 Travel Social History Tobacco Use Types Packs/Day Years Used Date Smoking Tobacco: Never Smokeless Tobacco: Never Alcohol Use Standard Drinks/Week Comments Not Currently 2 (1 standard drink = 0.6 oz pur e alcohol) [facility] Utilities Answer Date Recorded In the past 12 months has [employer] electric, gas, oil, or water company threatened [...] and heating? Not hard at all 11/23/2024 [facility] of Occupat ional Health - Occupational Stress [...] GED or equivalent No 11/23/2024 Preferred Language Bahraini 11/23/2024 PHQ-2 Answer Date Recorded Patient Health [...] Visit [facility] OBGYN 1700 [facility] 701 [place] [address] Sheldon Godoy, LIFE SKILLS CONSULTANT 1700 [facility] [address] [place] [address] 09/22/2025 2:45 PM EDT Office Visit [facility] SLEEP MEDICINE 3000 [facility] 240 [place] [address] Dave Montaño, LIFE SKILLS CONSULTANT [address] [place] [address] documented as of this encounter Visit Diagnoses Not on filedocumented in this encounter Care Teams Plate Maker Zinc Relationship Specialty Start Date End Date Sue Lieberman APRN [address] [place] [address] PCP - General Internal Medicine 03/09/24 documented as of this encounter
--- OUTSIDE RECORDS SUMMARY | 2024-11-30 12:36 | XMS_ITS | Encounter Summary ---
Author Organization [facility] ystem Address [address] [place] [address] Care Team Providers Care Shuttle Repairer Name Role Phone Sue Lieberman ALEE Primary Care Provider [phone] Encounter Details Date Type Department Care Team (Late st Contact Info) Description 09/16/2024 Results Follow-Up [facility] OBGYN [address] [place] [address] Radha De Souza, BARN MANAGER 1700 [facility] [address] [place], [place] [id number] Social History Tobacco Use Types Packs/Day Years [...] Description 12/01/2024 3:15 PM EDT Visit [facility] OBGYN 1700 [facility] [address] [place] [phone] Sheldon Godoy, BARN MANAGER 1700 [facility] [address] [place], [place] [address] 09/22/2025 2:45 PM EDT Office Visit [facility] SLEEP MEDICINE 3000 [facility] [place] [place] [phone] Dave Montaño, BARN MANAGER [address] [place] [address] documented as of this encounter Visit Diagnoses Not on filedocumented in this encounter Care Teams Shuttle Repairer Relationship Specialty Start Date End Date Sue Lieberman, BARN MANAGER [address] [address] PCP - General Internal Medicine 03/09/24 documented as of this encounter
--- OUTSIDE RECORDS SUMMARY | 2024-11-30 12:36 | XMS_ITS | Encounter Summary ---
[facility] [address] [place] [address] Care Team Providers Care Business Management Intern Name Role Phone LiebermanSue duran FOOD SELECTOR Primary Care Provider + [phone] Encounter Details Date Type Department Care Team (Latest Contact Info) Description 11/18/2024 Travel Social History Tobacco Use Types Packs/Day Years Used Date Smoking Tobacco: Never Smokeless Tobacco: Never Alcohol Use Standard Drinks/Week Comments Not Currently 2 (1 standard drink = 0.6 oz pur e alcohol) [facility] Utilities Answer Date Recorded In the past 12 months has [employer] electric, gas, oil, or water company threatened [...] and heating? Not hard at all 10/13/2024 [facility] [place] of Occupat ional Health - Occupational Stress [...] GED or equivalent No 10/13/2024 Preferred Language Malawian 10/13/2024 PHQ-2 Answer Date Recorded Patient Health [...] Info) Description 12/01/2024 3:15 PM EDT Visit [facility] OBGYN 1700 [facility] [address] [place] [address] Sheldon Godoy, FOOD SELECTOR 1700 [facility] [address] [place] [address] 09/22/2025 2:45 PM EDT Office Visit [facility] SLEEP MEDICINE 3000 [facility] [address] [place] [address] Dave Montaño, FOOD SELECTOR [address] [place] [address] documented as of this encounter Visit Diagnoses Not on filedocumented in this encounter Care Teams Business Management Intern Relationship Specialty Start Date End Date Sue Lieberman APRN [address] [place] [address] PCP - General Internal Medicine 03/09/24 documented as of this encounter
--- OUTSIDE RECORDS SUMMARY | 2024-11-30 12:36 | XMS_ITS | Encounter Summary ---
Author Organization [facility] ystem Address [address] [place] [address] Care Team Providers Care Estate Planning Paralegal Name Role Phone LiebermanSue duran MOTION PICTURE OPERATOR Primary Care Provider [phone] Encounter Details Date Type Department Care Team (Late st Contact Info) Description 11/16/2024 Telephone [facility] OBGYN [address] [address] Bhavya Carter MD 1700 [place] [address] Social History Tobacco Use Types Packs/Day Years Used Date Smoking Tobacco: Never Smokeless Tobacco: Never Alcohol Use Standard Drinks/Week Comments Not Currently 2 (1 standard drink = 0.6 oz pur e alcohol) [facility] Utilities Answer Date Recorded In the past 12 months has [employer], gas, oil, or water [employer] [address] threatened to shut off services in your [...] and heating? Not hard at all 10/13/2024 [facility] - Occupational Stress Questionnaire Answer [...] GED or equivalent No 10/13/2024 Preferred Language Mexican 10/13/2024 PHQ-2 Answer Date Recorded Patient Health Questionnaire-2 Score 0 10/13/2024 Comments Yes Sex and Gender Information Value Date Recorded Sex Assigned at Female 10/01/2024 2:08 PM EDT Legal Sex Female 10:46 AM EDT Gender Identity Not on file Sexual Orientation Not on file documented as of this encounter Miscellaneous Notes * Telephone Encounter - Sheldon Godoy APRN - 11/16/2024 11:01 AM EDT Pt notified, per Dr. Carter, labs are stable. No need for 24 hr urine at this point. Monitor symptoms and notify us of changes. * Telephone Encounter - Sarah Cutler RegSched Rep - 11/16/2024 10:25 AM EDT Patient wondering if she needs to do another 24 hour urine, had reviewed results on mychart documented in this encounter Plan of Treatment Upcoming Encounters Date Type Department Care Team (Late st Contact Info) Description 12/01/2024 3:15 PM EDT Visit [facility] OBGYN [address] [place] [phone] Sheldon Godoy APRN 1700 [facility] [address] [place] [address] 09/22/2025 2:45 PM EDT Office Visit [facility] SLEEP MEDICINE 3000 [facility] [place] [address] [place] [phone] Dave Montaño, MOTION PICTURE OPERATOR [address] [place] [address] documented as of this encounter Visit Diagnoses Not on filedocumented in this encounter Care Teams Estate Planning Paralegal Relationship Specialty Start Date End Date Sue Lieberman, ALEE [address] [place] [address] PCP - General Internal Medicine 03/09/24 documented as of this encounter
--- OUTSIDE RECORDS SUMMARY | 2024-11-30 12:36 | XMS_ITS | Encounter Summary ---
[facility] [address] [place] [address] Care Team Providers Care Device Repair Technician Name Role Phone LiebermanSue duran BACK ROLLER Primary Care Provider + [phone] Encounter Details Date Type Department Care Team (Latest Contact Info) Description 11/15/2024 Travel Social History Tobacco Use Types Packs/Day Years Used Date Smoking Tobacco: Never Smokeless Tobacco: Never Alcohol Use Standard Drinks/Week Comments Not Currently 2 (1 standard drink = 0.6 oz pur e alcohol) [facility] Utilities Answer Date Recorded In the past 12 months has [employer] electric, gas, oil, or water company threatened [...] and heating? Not hard at all 10/13/2024 [facility] [place] of Occupat ional Health - Occupational Stress [...] GED or equivalent No 10/13/2024 Preferred Language Turkmen 10/13/2024 PHQ-2 Answer Date Recorded Patient Health [...] Info) Description 12/01/2024 3:15 PM EDT Visit [facility] OBGYN 1700 [facility] [address] [place] [address] Sheldon Godoy, BACK ROLLER 1700 [facility] [address] [place] [address] 09/22/2025 2:45 PM EDT Office Visit [facility] SLEEP MEDICINE 3000 [facility] [address] [place] [address] Dave Montaño, BACK ROLLER 2400 [place] [address] documented as of this encounter Visit Diagnoses Not on filedocumented in this encounter Care Teams Device Repair Technician Relationship Specialty Start Date End Date Sue Lieberman APRN [address] [place] [address] PCP - General Internal Medicine 03/09/24 documented as of this encounter
--- OUTSIDE RECORDS SUMMARY | 2024-11-30 12:37 | XMS_ITS | Encounter Summary ---
[facility] [address] [place] [address] Care Team Providers Care Training And Quality Manager Name Role Phone LiebermanSue duran ALEE Primary Care Provider [phone] Encounter Details Date Type Department Care Team (Late st Contact Info) Description 11/14/2024 Results Follow-Up [facility] OBGYN [address] [place] [address] Dayanna Marvin, FILM AND VIDEO GRAPHICS DESIGNER [address] [place] [address] Social History Tobacco Use Types Packs/Day Years Used Date Smoking Tobacco: Never Smokeless Tobacco: Never Alcohol Use Standard Drinks/Week Comments Not Currently 2 (1 standard drink = 0.6 oz pur e alcohol) [facility] Utilities Answer Date Recorded In the past 12 months has [employer], gas, oil, or water [employer] threatened to shut off services in your [...] and heating? Not hard at all 10/13/2024 [facility] [place] [facility] - Occupational Stress Questionnaire Answer Date [...] GED or equivalent No 10/13/2024 Preferred Language Comoran 10/13/2024 PHQ-2 Answer Date Recorded Patient Health [...] 3:15 PM EDT Visit [facility] OBGYN [address] [facility] [address] [place] [address] Sheldon Godoy, FILM AND VIDEO GRAPHICS DESIGNER 1700 [facility] [address] [place] [address] 09/22/2025 2:45 PM EDT Office Visit [facility] SLEEP MEDICINE 3000 [facility] [address] [place] [address] Dave Montaño, FILM AND VIDEO GRAPHICS DESIGNER 24[address] [place] [address] documented as of this encounter Visit Diagnoses Not on filedocumented in this encounter Care Teams Training And Quality Manager Relationship Specialty Start Date End Date Sue Lieberman APRN [address] [place] [address] PCP - General Internal Medicine 03/09/24 documented as of this encounter
--- OUTSIDE RECORDS SUMMARY | 2024-11-30 12:37 | XMS_ITS | Encounter Summary ---
[facility] [address] [place] [address] Care Team Providers Care Casing Operator Name Role Phone LiebremanSue duran OSTOMY RN Primary Care Provider + [phone] Encounter Details Date Type Department Care Team (Latest Contact Info) Description 11/08/2024 Travel Social History Tobacco Use Types Packs/Day Years Used Date Smoking Tobacco: Never Smokeless Tobacco: Never Alcohol Use Standard Drinks/Week Comments Not Currently 2 (1 standard drink = 0.6 oz pur e alcohol) [facility] Utilities Answer Date Recorded In the past 12 months has [employer], gas, oil, or water company threatened [...] Not hard at all 10/13/2024 [facility] [place] of Occupat ional Health - Occupational Stress [...] GED or equivalent No 10/13/2024 Preferred Language Citizen Of [place] 10/13/2024 PHQ-2 Answer Date Recorded Patient Health [...] Info) Description 12/01/2024 3:15 PM EDT Visit [facility] OBGYN 1700 [facility] [address] [place] [address] Sheldon Godoy, OSTOMY RN 1700 [facility] [address] [place] [address] 09/22/2025 2:45 PM EDT Office Visit [facility] SLEEP MEDICINE 3000 [facility] [address] [place] [address] Dave Montaño, OSTOMY RN 24[address] [place] [address] documented as of this encounter Visit Diagnoses Not on filedocumented in this encounter Care Teams Casing Operator Relationship Specialty Start Date End Date Sue Lieberman APRN [address] [place] [address] PCP - General Internal Medicine 03/09/24 documented as of this encounter
--- OUTSIDE RECORDS SUMMARY | 2024-11-30 12:37 | XMS_ITS | Encounter Summary ---
Author Organization [facility] Address [address] [place] [address] Care Team Providers Care Mechanical Design Engineer Products Name Role Phone LiebermanSue duran TANK DRIVER Primary Care Provider + [phone] Encounter Details Date Type Department Care Team (Latest Contact Info) Description 11/11/2024 Travel Social History Tobacco Use Types Packs/Day Years Used Date Smoking Tobacco: Never Smokeless Tobacco: Never Alcohol Use Standard Drinks/Week Comments Not Currently 2 (1 standard drink = 0.6 oz pur e alcohol) [facility] Utilities Answer Date Recorded In the past 12 months has [employer], gas, oil, or water company threatened [...] hard at all 10/13/2024 [facility] [place] of Occupat ional Health - Occupational Stress [...] GED or equivalent No 10/13/2024 Preferred Language Dutch 10/13/2024 PHQ-2 Answer Date Recorded Patient Health [...] Info) Description 12/01/2024 3:15 PM EDT Visit [facility] OBGYN 1700 [facility] 701 [place] [address] Sheldon Godoy, TANK DRIVER 1700 [facility] [address] [place] [address] 09/22/2025 2:45 PM EDT Office Visit [facility] SLEEP MEDICINE 3000 [facility] [address] [place] [address] Dave Montaño, TANK DRIVER [address] [place] [address] documented as of this encounter Visit Diagnoses Not on filedocumented in this encounter Care Teams Mechanical Design Engineer Products Relationship Specialty Start Date End Date Sue Lieberman APRN [address] [place] [address] PCP - General Internal Medicine 03/09/24 documented as of this encounter
--- OUTSIDE RECORDS SUMMARY | 2024-11-30 12:38 | XMS_ITS | Encounter Summary ---
[facility] [address] [place] [address] Care Team Providers Care Councilor Name Role Phone LiebermanSue duran NATIONAL OPELINT ANALYST Primary Care Provider + [phone] Encounter Details Date Type Department Care Team (Latest Contact Info) Description 11/03/2024 Travel Social History Tobacco Use Types Packs/Day Years Used Date Smoking Tobacco: Never Smokeless Tobacco: Never Alcohol Use Standard Drinks/Week Comments Not Currently 2 (1 standard drink = 0.6 oz pur e alcohol) [facility] Utilities Answer Date Recorded In the past 12 months has [employer], gas, oil, or water company threatened [...] and heating? Not hard at all 10/13/2024 [facility] [place] of Occupat ional Health - Occupational Stress [...] GED or equivalent No 10/13/2024 Preferred Language Singaporean 10/13/2024 PHQ-2 Answer Date Recorded Patient Health [...] [facility] OBGYN 1700 [facility] [address] [place] [address] Sheldon Godoy, NATIONAL OPELINT ANALYST 1700 [facility] [address] [place] [address] 09/22/2025 2:45 PM EDT Office Visit [facility] SLEEP MEDICINE 3000 [facility] [address] [place] [address] Dave Montaño, NATIONAL OPE[place]INT ANALYST [address] [place] [address] documented as of this encounter Visit Diagnoses Not on filedocumented in this encounter Care Teams Councilor Relationship Specialty Start Date End Date Sue Lieberman APRN [address] [place] [place] [address] PCP - General Internal Medicine 03/09/24 documented as of this encounter
--- OUTSIDE RECORDS SUMMARY | 2024-11-30 12:39 | XMS_ITS | Encounter Summary ---
[facility] [address] [place] [address] Care Team Providers Care Bistro Attendant Name Role Phone Sue Lieberman HYDRODYNAMICS PROFESSOR Primary Care Provider [phone] Encounter Details Date Type Department Care Team (Late st Contact Info) Description 11/29/2024 Maternal Screening [facility] [address] [place] [address] Loretta Antonio, RN Social History Tobacco Use Types Packs/Day Years Used Date Smoking Tobacco: Never Passive Smoke Exposure: Never Smokeless Tobacco: Never Alcohol Use Standard Drinks/Week Comments Not Currently 2 (1 standard drink = 0.6 oz pur e alcohol) [facility] Utilities Answer Date Recorded In the past 12 months has [employer], gas, oil, or water company threatened [...] and heating? Not hard at all 11/23/2024 [facility] [place] of Occupat ional Health - Occupational Stress [...] money to buy more. Never true 11/24/19 Within the past 12 months, t he [...] things needed for daily living? No 11/23/2024 Cameron Depression Scale Answer Date Recorded Cameron Depression Scale Total 6 11/25/2024 The thought [...] GED or equivalent No 11/23/2024 Preferred Language Saudi Arabian 11/23/2024 PHQ-2 Answer Date Recorded Patient Health Questionnaire-2 Score 0 11/23/2024 Comments No Sex and Gender Information Value Date Recorded Sex Assigned at Female 10/01/2024 2:08 PM EDT Legal Sex Female 10:46 AM EDT Gender Identity Not on file Sexual Orientation Not on file documented as of this encounter Miscellaneous Notes * Outreach Note - Loretta Antonio RN - 11/29/2024 2:59 PM EDT Maternal Screening Survey Flowsheet Row Responses Eligibility Eligible Prep survey completed? Yes Facility patient discharged from? [place] Loretta Weinberg - Registered Nurse documented in this encounter Plan of Treatment Upcoming Encounters Date Type Department Care Team (Late st Contact Info) Description 12/01/2024 3:15 PM EDT Visit [facility] OBGYN 1700 [facility] [address] [place] [phone] Sheldon Godoy APRN 1700 [facility] [address] [place] [address] 09/22/2025 2:45 PM EDT Office Visit [facility] SLEEP MEDICINE 3000 [facility] 240 [place] [address] Dave Montaño, ALEE [address] [place] [address] documented as of this encounter Visit Diagnoses Not on filedocumented in this encounter Care Teams Bistro Attendant Relationship Specialty Start Date End Date Sue Lieberman APRN [address] [place] [address] [place] [address] PCP - General Internal Medicine 03/09/24 documented as of this encounter
== END 2024-11-29 23:59 | disposition home or self-care (01) ==
LOC: LAB.DROPOF 11-30 12:32
PROVIDERS: PCP Nurse Practitioner Family; Visit Provider Nurse Practitioner Family
DX: J02.9 Acute pharyngitis, unspecified (principal); R05.1 Acute cough
CPT/HCPCS: 87631

== ENCOUNTER 2025-01-09 13:54 | Outpatient (CLI) | payer BC, MEDICAID, SELFPAY ==
--- OUTSIDE RECORDS SUMMARY | 2024-11-11 08:45 | XMS_ITS | Encounter Summary ---
[facility] Organization [facility] Address [address] [place] [address] Care Team Providers Care Bowling Ball Marker Name Role Phone Sue Lieberman APRN Primary Care Provider [phone] Reason for Visit * Reason Comments Routine Visit Non-stress Test Encounter Details Date Type Department Care Team (Late st Contact Info) Description 11/11/2024 8:45 AM EDT Routine [facility] OBGYN [address] [place] [address] Dayanna Marvin, MANAGER PORT [address] [place] [address] GA: 35w2d Social History Tobacco Use Types Packs/Day Years Used Date Smoking Tobacco: Never Smokeless Tobacco: Never Alcohol Use Standard Drinks/Week Comments Not Currently 2 (1 standard drink = 0.6 oz pur e alcohol) [facility] Utilities Answer Date Recorded In the past 12 months has [employer], gas, oil, or water [employer] threatened to shut off services in your [...] and heating? Not hard at all 10/13/2024 [facility] [place] [facility] - Occupational Stress Questionnaire Answer Date [...] GED or equivalent No 10/13/2024 Preferred Language Armenian 10/13/2024 PHQ-2 Answer Date Recorded Patient Health [...] this encounter Progress Notes * Dayanna Marvin, MANAGER PORT - 11/11/2024 8:45 AM EDT Images from [...] Care Team (Late st Contact Info) Description 01/12/2025 2:00 PM EDT Visit [facility] OBGYN [address] [facility] [address] [place] [address] Sheldon Godoy APRN [address] [facility] [address] [place] [address] 09/22/2025 2:45 PM EDT Office Visit [facility] SLEEP MEDICINE [address] [facility] [address] [place] [phone] Dave Montaño, MANAGER PORT [address] [place] [phone] documented as of this encounter Procedures Procedure [...] 11/12/2024 6:09 AM EDT Performed at: 01 - [address] [id number] Hazardous Materials Waste Technician: Jeremy Emanuel MD, Phone: [phone] Patient Fasting: N us Dayanna Marvin APRN LAB BLOOD ORDERABLES Milena l Result [facility] [address] [place] [address], [place] [phone] [facility] [address] [place] [address], [place] [phone] * Procedure Scanned (11/11/2024) Bhavya Carter MD PROCEDURE/MINOR SURGICAL ORDERA BLES Final Result documented in this encounter Visit Diagnoses Diagnosis care, first in third trimester- Primary Antepartum mild preeclampsia documented in this encounter Care Teams Bowling Ball Marker Relationship Specialty Start Date End Date Sue Lieberman APRN [address] [place] [address] PCP - General Internal Medicine 03/09/24 documented as of this encounter
--- OUTSIDE RECORDS SUMMARY | 2024-11-15 10:58 | XMS_ITS | Encounter Summary ---
Author Organization [facility] Address [address] [place] [address] Care Team Providers Care Wire Photo Operator News Name Role Phone Sue Lieberman APRN Primary Care Provider [phone] Reason for Referral * Diagnostic Imaging (Routine) - Closed Specialty Diagnoses / Procedures Referred By Contac t Referred To Contact Radiology Diagnoses Elevated liver enzymes Antepartum mild preeclampsia Procedures US [facility] Diagnostic [place] Britt Paul MD [address] [place] [address] Phone: tel: fax: [facility] US PER DIAG CTR [address] [place] [address] Phone: tel: Referral ID Status Reason Start Date Expiration Date Visits Re quested Visits Authorized [id number] Closed 11/01/2024 01/31/2026 1 1 Reason for Visit * Diagnostic Imaging (Routine) - Closed Specialty Diagnoses / Procedures Referred By Contac t Referred To Contact Radiology Diagnoses Elevated liver enzymes Antepartum mild preeclampsia Procedures [facility] Diagnostic [place] Britt Paul MD [address] [place] [address] Phone: tel: fax: [facility] US PER DIAG CTR [address] [place] [address] Phone: tel: Referral ID Status Reason Start Date Expiration Date Visits Re quested Visits Authorized [id number] Closed 11/01/2024 01/31/2026 1 1 Encounter Details Date Type Department Care Team (Latest Contact Info) Description 11/15/2024 10:58 AM EDT - 11/15/2024 11:59 PM EDT Hospital Encounter [facility] PER DIAG CTR [address] [place] [address] Elevated liver enzymes; Antepartum mild preeclampsia Discharge Disposition: Home or Self Care Social History Tobacco Use Types Packs/Day Years Used Date Smoking Tobacco: Never Smokeless Tobacco: Never Alcohol Use Standard Drinks/Week Comments Not Currently 2 (1 standard drink = 0.6 oz pur e alcohol) [facility] Utilities Answer Date Recorded In the past [...] heating? Not hard at all 10/13/2024 [facility] [place] of Occupat ional Health - Occupational Stress [...] GED or equivalent No 10/13/2024 Preferred Language Nauruan 10/13/2024 PHQ-2 Answer Date Recorded Patient Health [...] Info) Description 01/12/2025 2:00 PM EDT Visit [facility] OBGYN [address] [facility] [address] [place] [address] Sheldon Godoy, HOG WORKER [address] [facility] [address] [place] [address] 09/22/2025 2:45 PM EDT Office Visit [facility] SLEEP MEDICINE [address] [facility] [address] [place] [address] Dave Montaño, HOG WORKER [address] [place] [address] documented as of this encounter Procedures Procedure Name Priority Date/Time Associated Diagnosis Comments [facility] Routine 11/15/2024 11:32 AM EDT Elevated liver enzymes Antepartum mild preeclampsia documented in this encounter Results * [facility] (11/15/2024 11:32 AM EDT) Anatomical Region Laterality Modality Ultrasound 11/15/2024 11:0 7 AM EDT Narrative 11/15/2024 11:44 AM EDT PAT NAME: PENNY KEBEDE [facility] REC#: [id number] DA: [id number] PAT GEND: F PAT TYPE: O EXAM JEAN-CLAUDE: [id number] REF PHYS KARAN MAYO Comparison Studies The [...] EFW (oz) 14 oz EFW by: Hadlock ([id number]) Extended Cav. septi pel. tr 6.6 mm [...] Normal Heart / Thorax 3-vessel view: suboptimal 0-favqtr-aebhpmx view: suboptimal Stomach: Appears normal Kidneys: Appears [...] Follow-up as clinically indicated. Coding ======= Description: 78839-49 Follow Up Ultrasound Description: 68625-98 BPP without NST Plumber: Monae Armstrong RDMS Physician: Joaquín Barrientos MD, FACOG Electronically signed by: Joaquín Barrientos MD, FACOG at: 11:44 Procedure Note Joaquín Barrientos MD - 11/15/2024 PAT NAME: PENNY KEBEDE MED REC#: [id number] DA: [id number] PAT GEND: F PAT TYPE: O EXAM JEAN-CLAUDE: [id number] REF PHYS KARAN MAYO Comparison Studies The findings of this study are compared to the prior ultrasound studydated 10/31/24. Patient Status Outpatient Indication ======== Preeclampsia. Super obesity BMI 52. Maternal Assessment Cswipe845 cm Height (ft)5 ft Height (in)3 in Clnqws073 kg Weight (lb)300 lb BMI53.16 kg/m Method ======= Transabdominal ultrasound examination. View: Limited by patient bodyhabitus ========= Navarro . Number of fetuses: 1 Dating ====== LMP on:02/25/2024 GA by [email or web address] w + 5 d KAREN by LMP:12/01/2024 GA by prior [id number] w + 6 d KAREN by prior [...] GA35 w + 6 d Assigned KAREN:12/14/2024 [id number] d Biometry Standard BPD88.2 mm 35w 5d 51% Hadlock KOZ892.3 mm -/- 98% Mary HC329.0 mm 37w 3d 58% Hadlock Cerebellum tr46.9 mm 35w 3d 34% Hill AC342.8 mm 38w 1d 98% Hadlock Femur68.4 mm 35w 1d 26% Hadlock Nyxcwgy32.8 mm 35w 1d 51% Mary HC / AC0.96 EFW3,113 g 37w 3d 82% Hadlock EFW (lb)6 lb EFW (oz)14 oz EFW by:Hadlock ([id number]-SQ-[id number]-FL) Extended Cav. septi pel. tr6.6 mm CM7.9 mm 61% Nicolaides Head / Face / Neck Cephalic index0.75 4% Nicolaides Extremities / Bony Struc FL / BPD0.78 FL / HC0.21 FL / AC0.20 Other Structures [id number] bpm General Evaluation Cardiac activity present. FHR 141 bpm. movements present. Presentation cephalic. Placenta Placental site: posterior. Amniotic fluid Amount of AF: normal. MVP 4.8 cm. JD 16.0 cm. Q1 3.1 cm,Q2 4.5 cm, Q3 4.8 cm, Q4 3.6 cm. Anatomy Cranium:Normal Cavum septi pellucidi:Normal Cerebellum:Normal Cisterna magna:Normal Lips:suboptimal Profile:suboptimal 4-chamber view:Appears normal RVOT view:Normal LVOT view:Normal Heart / Thorax 3-vessel view:suboptimal 6-otpxha-lvdrzqy view:suboptimal Stomach:Appears normal Kidneys:Appears normal Bladder:Appears normal [...] Recommendation Follow-up as clinically indicated. Coding ======= Description:62332-26 Follow Up Ultrasound Description:07468-41 BPP without NST Plumber: Monae Armstrong RDMS Physician: Joaquín Barrientos MD, FACOG Electronically signed by: Joaquín Barrientos MD, FACOG at: 11:44 us Britt Paul MD IMG US ORDERABLES Final Result documented in this encounter Visit Diagnoses Diagnosis Elevated liver enzymes Other nonspecific abnormal serum enzyme levels Antepartum mild preeclampsia documented in this encounter Care Teams Wire Photo Operator News Relationship Specialty Start Date End Date Sue Lieberman APRN [address] [place] [address] JASMYNE WATTS [address] PCP - General Internal Medicine 03/09/24 documented as of this encounter
--- OUTSIDE RECORDS SUMMARY | 2024-11-15 11:15 | XMS_ITS | Encounter Summary ---
Author Organization [facility] Address [address] [place] [address] Care Team Providers Care Investor Relations Associate Name Role Phone Sue Lieberman APRN Primary Care Provider Reason for Visit * Reason Comments SO; preeclampsia Encounter Details Date Type Department Care Team (Late st Contact Info) Description 11/15/2024 11:15 AM EDT Office Visit [facility] MATERNAL MEDICINE [address] [place] [address] [place] [phone] Joaquín Barrientos MD [address] [facility] [address] [place] [address] Antepartum mild preeclampsia (Primary Dx) Social History Tobacco Use Types Packs/Day Years Used Date Smoking Tobacco: Never Smokeless Tobacco: Never Alcohol Use Standard Drinks/Week Comments Not Currently 2 (1 standard drink = 0.6 oz pur e alcohol) [facility] Utilities Answer Date Recorded In the past 12 months has [employer], gas, oil, or water [employer] threatened to shut off services in your [...] and heating? Not hard at all 10/13/2024 [facility] [place] of Occupat ional Health - Occupational Stress [...] GED or equivalent No 10/13/2024 Preferred Language Swiss 10/13/2024 PHQ-2 Answer Date Recorded Patient Health [...] Info) Description 01/12/2025 2:00 PM EDT Visit [facility] OBGYN [address] [facility] [address] [place] [address] Sheldon Godoy, PRINCIPAL INVESTIGATOR [address] [facility] [address] [place] [address] 09/22/2025 2:45 PM EDT Office Visit [facility] SLEEP MEDICINE [address] [facility] [place] [place] [address] Dave Montaño, PRINCIPAL INVESTIGATOR [address] [place] [address] documented as of this encounter Visit Diagnoses Diagnosis Antepartum mild preeclampsia- Primary documented in this encounter Care Teams Investor Relations Associate Relationship Specialty Start Date End Date Sue Lieberman, ALEE [address] [place] [address] PCP - General Internal Medicine 03/09/24 documented as of this encounter
--- OUTSIDE RECORDS SUMMARY | 2024-11-15 13:00 | XMS_ITS | Encounter Summary ---
[facility] Address [address] [place] [address] Care Team Providers Care Head Coach Name Role Phone Sue Lieberman APRN Primary Care Provider Reason for Visit * Reason Comments Routine Visit Encounter Details Date Type Department Care Team (Late st Contact Info) Description 11/15/2024 1:00 PM EDT Routine [facility] OBGYN [address] [place] [phone] Bhavya Carter MD [address] [place] [address] GA: 35w6d Social History Tobacco Use Types Packs/Day Years Used Date Smoking Tobacco: Never Smokeless Tobacco: Never Alcohol Use Standard Drinks/Week Comments Not Currently 2 (1 standard drink = 0.6 oz pur e alcohol) [facility] Utilities Answer Date Recorded In the past 12 months has [employer], gas, oil, or water [employer] threatened to shut off services in your [...] and heating? Not hard at all 10/13/2024 [facility] [place] of Occupat ional Health - Occupational Stress [...] GED or equivalent No 10/13/2024 Preferred Language Cape Verdean 10/13/2024 PHQ-2 Answer Date Recorded Patient Health [...] about 3 days (around 11/18/2024) for In whately with NST. Bhavya Carter MD 11/15/2024 documented in this encounter Plan of Treatment Upcoming Encounters Date Type Department Care Team (Late st Contact Info) Description 01/12/2025 2:00 PM EDT Visit [facility] OBGYN [address] [facility] [address] [place] [address] Sheldon Godoy, NAIL MAKING MACHINE TENDER 1700 [facility] [address] [place] [address] 09/22/2025 2:45 PM EDT Office Visit [facility] SLEEP MEDICINE [address] [facility] [address] [place] [address] Dave Montaño, NAIL MAKING MACHINE TENDER [address] [place] [address] documented as of this encounter Procedures Procedure [...] Streptococcus isolated GIUSEPPE 11/18/2024 8:21 AM EDT [facility] Swab Rectum and vagina, CS / Unknown Collection / Unknown 11/15/2024 7:06 PM EDT 11/15/2024 7:06 PM EDT us Bhavya Carter MD MICROBIOLOGY - GENERAL ORDERABL ES Final Result [facility]
[address] [place] [address], [place] [phone] * (ABNORMAL) AlP+ALT+AST+Creat+LD+TBili+.. (11/15/2024 1:29 PM EDT) [...] - 11/16/2024 3:35 AM EDT Performed at: [address] [place] [id number] Summer Law Clerk: Jeremy Emanuel MD, Phone: [phone] Bhavya Carter MD LAB BLOOD ORDERABLES Final Resu lt [facility]) [address] [place] [address], [place] [phone] [facility] [address] [place] [address], [place] [phone] * (ABNORMAL) POC Urinalysis Dipstick (11/15/2024 12:39 PM EDT) Glucose, UA Negative Negative mg/dL [facility] Protein, POC Trace(A) Negative mg/dL [facility] Urine 11/15/2024 12:3 9 PM EDT us Bhavya Carter MD POINT OF CARE TEST ORDERABLES F inal Result [facility]
[address] [place] [address], documented in this encounter Visit Diagnoses Diagnosis Antepartum mild preeclampsia- Primary Teratogen exposure in current , single or unspecified fetus 35 weeks gestation of Obesity affecting , antepartum, unspecified obesity type Elevated liver enzymes Other nonspecific abnormal serum enzyme levels Morbid obesity with BMI of 50.0-59.9, adult documented in this encounter Care Teams Head Coach Relationship Specialty Start Date End Date Sue Lieberman APRN [address] [place] [address] PCP - General Internal Medicine 03/09/24 documented as of this encounter
--- OUTSIDE RECORDS SUMMARY | 2024-11-15 19:10 | XMS_ITS | Encounter Summary ---
[facility] Address [address] [place] [address] Care Team Providers Care Counterintelligence Agent Name Role Phone Sue Lieberman APRN Primary Care Provider [phone] Encounter Details Date Type Department Care Team (Late st Contact Info) Description 11/15/2024 7:10 PM EDT Lab [facility] [address] [place] [address] Social History Tobacco Use Types Packs/Day Years Used Date Smoking Tobacco: Never Smokeless Tobacco: Never Alcohol Use Standard Drinks/Week Comments Not Currently 2 (1 standard drink = 0.6 oz pur e alcohol) [facility] Utilities Answer Date Recorded In the [...] and heating? Not hard at all 10/13/2024 [facility] [place] of Occupat ional Health - Occupational Stress [...] GED or equivalent No 10/13/2024 Preferred Language Cambodian 10/13/2024 PHQ-2 Answer Date Recorded Patient Health [...] Info) Description 01/12/2025 2:00 PM EDT Visit [facility] OBGYN 17[address] [facility] 701 [place] [address] Sheldon Godoy, HAIRSPRING II INSPECTOR 1700 [facility] [address] [place] [address] 09/22/2025 2:45 PM EDT Office Visit [facility] SLEEP MEDICINE 3000 [facility] [address] [place] [phone] Dave Montaño, HAIRSPRING II INSPECTOR [address] [place] [address] documented as of this encounter Visit Diagnoses Not on filedocumented in this encounter Care Teams Counterintelligence Agent Relationship Specialty Start Date End Date Sue Lieberman APRN [address] [place] [address] PCP - General Internal Medicine 03/09/24 documented as of this encounter
--- OUTSIDE RECORDS SUMMARY | 2024-11-18 09:30 | XMS_ITS | Encounter Summary ---
Author [facility] [address] [place] [address] Care Team Providers Care Log Driver Name Role Phone Sue Lieberman APRN Primary Care Provider [phone] Reason for Visit * Reason Comments Routine Visit Encounter Details Date Type Department Care Team (Late st Contact Info) Description 11/18/2024 9:30 AM EDT Routine [facility] OBGYN [address] [place] [address] Bhavya Carter MD [address] [place] [address] GA: 36w2d Social History Tobacco Use Types Packs/Day Years Used Date Smoking Tobacco: Never Smokeless Tobacco: Never Alcohol Use Standard Drinks/Week Comments Not Currently 2 (1 standard drink = 0.6 oz pur e alcohol) [facility] Utilities Answer Date Recorded In the past 12 months has [employer], gas, oil, or water [employer] threatened to shut off services in your [...] and heating? Not hard at all 10/13/2024 [facility] - Occupational Stress Questionnaire Answer Date [...] GED or equivalent No 10/13/2024 Preferred Language Stateless 10/13/2024 PHQ-2 Answer Date Recorded Patient Health Questionnaire-2 Score 0 10/13/2024 Comments Yes Sex and Gender Information Value Date Recorded Sex Assigned at Female 10/01/2024 2:08 PM EDT Legal Sex Female 10:46 AM EDT Gender Identity Not on file Sexual Orientation Not on file documented as of this encounter Last Filed Vital Signs Vital Sign Reading Time Taken Comments Blood Pressure 120/78 11/18/2024 9:39 AM EDT Pulse - - Temperature - - Respiratory Rate - - Oxygen Saturation - - Inhaled Oxygen Concentration - - Weight 135 kg (297 lb) 11/18/2024 9:39 AM EDT Height - - Body Mass Index 52.62 09/16/2024 2:28 PM EDT documented in this encounter Progress Notes * Bhavya Carter MD - 11/18/2024 9:30 AM EDT Images from the original note were not included. OB FOLLOW UP CC- Here for care of Penny Kebede is a 24 y.o. 36w2d patient being seen today for her obstetrical follow up visit. Patient reports pelvic pain and gildardo palomo. Her care is complicated by (and status) : Gestational hypertension. Her readings at home have been 110-120/60-85 Patient Active Problem List Diagnosis Asthma Obesity affecting , antepartum Morbid obesity with BMI of 50.0-59.9, adult Teratogen exposure in current Antepartum mild preeclampsia Elevated liver enzymes GBS Status: was already done and is negative. Allergies Allergen Reactions Penicillins Unknown - Low Severity Childhood allergy - unsure of reaction Flu Status: Declines RSV status: out of season Her Delivery Plan is: Desires IOL. Scheduled 11/23/2024 US today: no Non Stress Test: Yes minutes non-stress test: NST: Reactive indication: Hypertension ROS - Patient Denies: Contractions and pelvic pain Movement : normal Other than what is [...] information as entered above. Bhavya Carter MD EXAM: Vitals BP: 120/78 Weight: 135 kg (297 lb) NST NOTE Indiction : Preeclampia FHR: Reactive, Cat 1, No decels Contractions: Irregular Time Monitored: > 20 minutes Assessment and Plan Problem List Items Addressed This Visit Endocrine and Metabolic Morbid obesity with BMI of 50.0-59.9, adult Gastrointestinal Abdominal Elevated liver enzymes - Primary Gravid and Antepartum mild preeclampsia Relevant Medications labetalol (NORMODYNE) 200 MG tablet Pulmonary and Pneumonias Asthma Relevant Medications montelukast (SINGULAIR) 10 MG tablet at 36w2d status reassuring. Reviewed Pre-eclampsia signs/symptoms Delivery options reviewed with patient Signs of labor reviewed Kick counts reviewed Activity and Exercise discussed. Return in about 4 days (around 11/22/2024). Bhavya Carter MD 11/18/2024 documented in this encounter Plan of Treatment Upcoming Encounters Date Type Department Care Team (Late st Contact Info) Description 01/12/2025 2:00 PM EDT Visit [facility] OBGYN 1700 [facility] [address] [place] [address] Sheldon Godoy, TRANSITIONS RN CARE COORDINATOR 1700 [facility] [address] [place] [address] 09/22/2025 2:45 PM EDT Office Visit [facility] SLEEP MEDICINE 3000 [facility] [address] [place] [phone] Dave Montaño, TRANSITIONS RN CARE COORDINATOR [address] [place] [address] documented as of this encounter Procedures Procedure Name Priority Date/Time Associated Diagnosis Comments SCANNED - PROCEDURE 11/18/2024 documented in this encounter Results * Procedure Scanned (11/18/2024) Bhavya Carter MD PROCEDURE/MINOR SURGICAL ORDERA BLES Final Result documented in this encounter Visit Diagnoses Diagnosis Elevated liver enzymes- Primary Other nonspecific abnormal serum enzyme levels Morbid obesity with BMI of 50.0-59.9, adult Antepartum mild preeclampsia Mild intermittent asthma without complication documented in this encounter Care Teams Log Driver Relationship Specialty Start Date End Date Sue Lieberamn APRN [address] [place] [address] PCP - General Internal Medicine 03/09/24 documented as of this encounter
--- OUTSIDE RECORDS SUMMARY | 2024-11-22 13:50 | XMS_ITS | Encounter Summary ---
[facility] Address [address] [place] [address] Care Team Providers Care Optical Glass Etcher Name Role Phone Sue Lieberman APRN Primary Care Provider Reason for Visit * Reason Comments Routine Visit Encounter Details Date Type Department Care Team (Late st Contact Info) Description 11/22/2024 1:50 PM EDT Routine [facility] OBGYN [address] [place] [id number] Bhavya Carter MD [address] [place] [address] [place]: 36w6d Social History Tobacco Use Types Packs/Day Years Used Date Smoking Tobacco: Never Smokeless Tobacco: Never Alcohol Use Standard Drinks/Week Comments Not Currently 2 (1 standard drink = 0.6 oz pur e alcohol) [facility] Utilities Answer Date Recorded In the past 12 months has [employer], gas, oil, or water [employer] threatened to shut off services in your [...] and heating? Not hard at all 11/23/2024 [facility] [place] of Occupat ional Health - Occupational Stress [...] GED or equivalent No 11/23/2024 Preferred Language [place] Islander 11/23/2024 PHQ-2 Answer Date Recorded Patient Health [...] Info) Description 01/12/2025 2:00 PM EDT Visit [facility] OBGYN [address] [facility] [address] [place] [address] Sheldon Godoy, CLOTH MERCERIZING SUPERVISOR [address] [facility] [address] [place] [address] 09/22/2025 2:45 PM EDT Office Visit [facility] SLEEP MEDICINE [address] [facility] [address] [place] [address] Dave Montaño, CLOTH MERCERIZING SUPERVISOR [address] [place] [address] documented as of this encounter Procedures Procedure Name Priority Date/Time Associated Diagnosis Comments POCT URINALYSIS DIPSTICK, MANUAL Routine 11/22/2024 2:22 PM EDT care, first in third trimester SCANNED - PROCEDURE 11/22/2024 documented in this encounter Results * POC Urinalysis Dipstick (11/22/2024 2:22 PM EDT) Glucose, UA Negative Negative mg/dL [facility] Protein, POC Negative Negative mg/dL [facility] Urine 11/22/2024 2:22 PM EDT us Bhavya Carter MD POINT OF CARE TEST ORDERABLES F inal Result [facility]
[address] [place] [id number], * Procedure Scanned (11/22/2024) us Bhavya Carter MD PROCEDURE/MINOR SURGICAL ORDERA BLES Final Result documented in this encounter Visit Diagnoses Diagnosis care, first in third trimester- Primary documented in this encounter Care Teams Optical Glass Etcher Relationship Specialty Start Date End Date Sue Lieberman APRN [address] [place] [address] PCP - General Internal Medicine 03/09/24 documented as of this encounter
--- OUTSIDE RECORDS SUMMARY | 2024-11-23 20:00 | XMS_ITS | Encounter Summary ---
Author Organization [facility] Address [address] [place] [address] Care Team Providers Care Borematic Operator Name Role Phone Sue Lieberman APRN Primary Care Provider [phone] Reason for Visit * Auth/Cert (Routine) Specialty Diagnoses / Procedures Referred By Contac t Referred To Contact Diagnoses Referral ID Status Reason Start Date Expiration Date Visits Re quested Visits Authorized [id number] 1 1 Encounter Details Date Type Department Care Team (Latest Contact Info) Description 11/23/2024 8:00 PM EDT - 11/23/2024 11:59 PM EDT Hospital Encounter [facility] DELIV[facility] PROCEDURES [address] [place] [address] Discharge Disposition: Home or Self Care Social History Tobacco Use Types Packs/Day Years Used Date Smoking Tobacco: Never Passive Smoke Exposure: Never Smokeless Tobacco: Never Alcohol Use Standard Drinks/Week Comments Not Currently 2 (1 standard drink = 0.6 oz pur e alcohol) [facility] Utilities Answer Date Recorded In the past 12 months has [employer], gas, oil, or water [employer] threatened to shut off services in your [...] and heating? Not hard at all 11/23/2024 [facility] [place] [facility] - Occupational Stress Questionnaire Answer Date [...] home 11/02 Potentially Unsafe Housing Conditions none 11/24/2024 Family and Community Support Answer Jean-Claude e [...] Difficulty Concentrating, Remembering or Making Decisions no 11/24/2024 Difficulty Managing Errands Independently no 11/24/2024 Education Answer Date Recorded Do you want help with school or training? For example, starting or completing job training or getting a high school diploma, GED or equivalent No 11/23/2024 Preferred Language Kyrgyz 11/23/2024 PHQ-2 Answer Date Recorded Patient Health Questionnaire-2 Score 0 11/23/2024 Comments Yes Sex and Gender Information Value Date Recorded Sex Assigned at Female 10/01/2024 2:08 PM EDT Legal Sex Female 10:46 AM EDT Gender Identity Not on file Sexual Orientation Not on file documented as of this encounter Functional Status * Over the past 2 weeks, how often have you been bothered by any of the following problems? Question Answer Date of Assessment Author Patient Health Questionnaire -2 Score 0 11/23/2024 10:36 PM EDT Jn Millan RN * Question Answer Date of Assessment Author 1. Wish to be (Past 1 Month) No 025 9:02 PM Jn Bartlett RN 2. Non-Specific Active Suici alexis Thoughts (Past 1 Month) No 11/23/2024 9:02 PM Bonifacio Bartlett RN * Calculated C-SSRS Risk Score (Lifetime/Recent) Answer Date of Assessment Author No Risk Indicated 11/23/2024 9:02 PM Jn Bartlett RN * [place] Suicide Severity Rating Scale (Screener/Recent Self-Report) Question Answer Date of Assessment Author 6. Suicidal Behavior (Lifetime) No 9:02 PM Jn Bartlett RN * Question Answer Date of Assessment Author Little interest or pleasure in doing things Not at all 11/23/2024 10:36 PM Jn Bartlett RN Feeling down, depressed, or hopeless Not at all 11/23/2024 10:36 PM Jn Bartlett RN documented as of this encounter Medications at Time of Discharge amitriptyline (ELAVIL) 50 MG tablet Take 1 tablet by mouth Every Night. docusate sodium 100 MG capsule Take 1 capsule by mouth 2 (Two) Times a Day As Needed for Constipation. 60 capsule 11/28/2024 10:44 AM EDT 11/28/2024 Ferrous Sulfate (Iron) 90 (18 Fe) MG tablet Take 1 tablet by mouth Daily. 60 tablet 11/28/2024 ibuprofen (ADVIL,MOTRIN) 600 MG tablet Take 1 tablet by mouth Every 6 (Six) Hours. 90 tablet 11/28/2024 10:44 AM EDT 11/28/2024 labetalol (NORMODYNE) 200 MG tablet Take 0.5 tablets by mouth Daily. 10/18/2024 montelukast (SINGULAIR) 10 MG tablet Take 1 tablet by mouth Daily. 30 tablet 9 05/05/2024 oxyCODONE (ROXICODONE) 5 MG immediate release tabletIndications:Radha magdy delivery delivered, care and examination immediately after delivery Take 1 tablet by mouth Every 6 (Six) Hours As Needed for Moderate Pain for up to 3 days. 12 tablet 11/28/2024 10:44 AM EDT 11/28/2024 aspirin 81 MG chewable tablet Chew 1 tablet Daily. cetirizine (zyrTEC) 10 MG tablet Take 1 tablet by mouth Daily. docusate sodium (Colace) 100 MG capsuleIndications:I aminta deficiency anemia during Take 1 capsule by mouth 2 (Two) Times a Day. 60 capsule 2 09/25/2024 5 Ferrous Sulfate (IRON PO) Take by mouth Daily. ondansetron ODT (ZOFRAN-ODT) 4 MG disintegrating tabletIndications:Na usea and vomiting in Take 1 tablet by mouth Every 8 (Eight) Hours As Needed for Nausea or Vomiting. 10 tablet 10/25/2024 5 documented as of this encounter Plan of Treatment Upcoming Encounters Date Type Department Care Team (Late st Contact Info) Description 01/12/2025 2:00 PM EDT Visit [facility] OBGYN [address] [place] [address] Sheldon Godoy, LEARNING AND DEVELOPMENT COORDINATOR [address] [facility] [address] [place] [address] 09/22/2025 2:45 PM EDT Office Visit [facility]EP MEDICINE [address] [facility] [address] [place] [address] Dave Montaño, LEARNING AND DEVELOPMENT COORDINATOR [address] [place] [address] documented as of this encounter Visit Diagnoses Not on filedocumented in this encounter Care Teams Borematic Operator Relationship Specialty Start Date End Date Sue Lieberman APRN [address] [address] PCP - General Internal Medicine 03/09/24 documented as of this encounter
--- OUTSIDE RECORDS SUMMARY | 2024-11-23 20:08 | XMS_ITS | Encounter Summary ---
Author Organization [facility] Address [address] [place] [address] Care Team Providers Care Manager Of Pmo Name Role Phone Sue Lieberman APRN Primary Care Provider [phone] Reason for Visit * Reason Comments Scheduled Induction * Auth/Cert (Routine) Specialty Diagnoses / Procedures Referred By Contac t Referred To Contact Diagnoses Referral ID Status Reason Start Date Expiration Date Visits Re quested Visits Authorized [id number] 1 1 Encounter Details Date Type Department Care Team (Late st Contact Info) Description 11/23/2024 8:08 PM EDT - 11/28/2024 3:35 PM EDT Hospital Encounter [facility] [address] [place] [id number] Bhavya Carter MD [address] [facility] [address] [place] [address] delivery delivered (Primary Dx); care and examination immediately after delivery Discharge Disposition: Home or Self Care Social History Tobacco Use Types Packs/Day Years Used Date Smoking Tobacco: Never Passive Smoke Exposure: Never Smokeless Tobacco: Never Tobacco Cessation:Counseling Given: No Alcohol Use Standard Drinks/Week Comments Not Currently 2 (1 standard drink = 0.6 oz pur e alcohol) [facility] Utilities Answer Date Recorded In the past 12 months has [email or web address] electric, gas, oil, or water company threatened [...] and heating? Not hard at all 11/23/2024 [facility] - Occupational Stress Questionnaire Answer Date [...] things needed for daily living? No 11/23/2024 [place] Depression Scale Answer Date Recorded [place] Depression Scale Total 6 11/25/2024 The thought of harming myself has occurred to me . Never 11/25/2024 Abuse Screen Answer Date Recorded Feels Unsafe [...] GED or equivalent No 11/23/2024 Preferred Language Prydeinig 11/23/2024 PHQ-2 Answer Date Recorded Patient Health Questionnaire-2 Score 0 11/23/2024 Comments No Sex and Gender Information Value Date Recorded Sex Assigned at Female 10/01/2024 2:08 PM EDT Legal Sex Female 10:46 AM EDT Gender Identity Not on file Sexual Orientation Not on file documented as of this encounter Last Filed Vital Signs Vital Sign Reading Time Taken Comments Blood Pressure 126/72 11/28/2024 7:05 AM EDT Pulse 86 11/28/2024 7:05 AM EDT Temperature 36.4 C (97.5 F) 11/28/2024 7:05 AM EDT Respiratory Rate 18 11/28/2024 7:05 AM EDT Oxygen Saturation 98% 11/25/2024 1:50 AM EDT Inhaled Oxygen Concentration - - Weight 135 kg (298 lb 9.6 oz) 11/23/2024 8:59 PM EDT Height 160 cm (5' 2.99 ) 11/23/2024 8:59 PM EDT Body Mass Index 52.91 11/23/2024 8:59 PM EDT documented in this encounter Functional Status * Over the [...] (Past 1 Month) No 11/23/2024 9:02 PM KYLERT Bonifacio Millan RN * Calculated C-SSRS Risk Score (Lifetime/Recent) Answer Date of Assessment Author No Risk Indicated 11/23/2024 9:02 PM Jn Bartlett RN * [place] Suicide Severity Rating Scale (Screener/Recent Self-Report) Question [...] Bartlett RN documented as of this encounter Discharge Summaries * Shilpa De Leon APRN - 11/28/2024 10:08 AM EDT Discharge Summary Date of Admission: 11/23/2024 Date of Discharge: 11/28/2024 Patient: Penny Kebede MR#:[id number] Primary Surgeon/OB: Bhavya Carter MD Discharge Surgeon/OB:same Presenting Problem/History of Present Illness [Z34.90] Antepartum mild preeclampsia Elevated liver enzymes delivery delivered care and examination immediately after delivery Discharge Diagnosis: section at 37w1d Procedures: , Low Transverse 11/24/2024 11:32 PM Rh Immune globulin given: not applicable Rubella vaccine given: not applicable Discharge Date: 11/28/2024; Discharge Time: 10:11 EDT Early Discharge: NO Hospital Course Patient is a 24 y.o. female at 37w1d status post section with postoperative recovery complication by preeclampsia. She did not require magnesium sulfate. Her labs were stable and herBP was controlled with labetalol 100mg once daily. Patient was advanced to regular diet on postoperative day#1. On discharge, ambulating, tolerating a regular diet without any difficulties and her incision is dry, clean and intact. : female fetus 3510 g (7 lb 11.8 oz) with scores of 7 , 9 at five minutes. Condition on Discharge: Stable Vital Signs Temp: [97.5 ??F (36.4 ??C)-98.2 ??F (36.8 ??C)] 97.5 ??F (36.4 ??C) Heart Rate: [83-97] 86 Resp: [16-18] 18 BP: (121-128)/(65-72) 126/72 Lab Results Component Value Date WBC 4.72 11/28/2024 HGB 8.9 (L) 11/28/2024 HCT 28.7 (L) 11/28/2024 MCV 92.0 11/28/2024 PLT 192 11/28/2024 Discharge Disposition Home or Self Care Discharge Medications Discharge Medications New Medications Instructions Start Date ibuprofen 600 MG tablet Commonly known as: ADVIL,MOTRIN 600 mg, Oral, Every 6 Hours oxyCODONE 5 MG immediate release tablet Commonly known as: ROXICODONE 5 mg, Oral, Every 6 Hours PRN Changes to Medications Instructions Start Date docusate sodium 100 MG capsule What changed: when to take this reasons to take this 100 mg, Oral, 2 Times Daily PRN Iron 90 (18 Fe) MG tablet What changed: medication strength how much to take 90 mg, Oral, Daily Continue These Medications Instructions Start Date amitriptyline 50 MG tablet Commonly known as: ELAVIL 50 mg, Nightly labetalol 200 MG tablet Commonly known as: NORMODYNE 100 mg, Oral, Daily montelukast 10 MG tablet Commonly known as: SINGULAIR 10 mg, Oral, Daily Stop These Medications aspirin 81 MG chewable tablet cetirizine 10 MG tablet Commonly known as: zyrTEC ondansetron ODT 4 MG disintegrating tablet Commonly known as: ZOFRAN-ODT Discharge Diet: Regular Activity at Discharge: Activity Instructions Activity as Tolerated Other Instructions (Specify) No driving for 2 weeks, No lifting over 10lbs for 6 weeks. Pelvic Rest Pelvic rest including no tampons, no tub baths, and no intercourse until 6 weeks/cleared by Provider. Follow-up Appointments Additional Instructions for the Follow-ups that You Need to Schedule Call MD for problems / concerns. As directed Call with foul smelling discharge, fever of >100.4, signs of depression, saturating apad in <1 hour, blood clots larger than a golf ball. Also call with headache that does not resolve with medication or rest, vision changes, pain in right upper quadrant, worsening swelling, or BP >140/90. Continue monitoring BP twice daily and bring a log with you to your next appointment. Order Comments: Call with foul smelling discharge, fever of >100.4, signs of depression, saturating a pad in <1 hour, blood clots larger than a golf ball. Also call with headache that does not resolve with medication or rest, vision changes, pain in right upper quadrant, worsening swelling, or BP >140/90. Continue monitoring BP twice daily and bring a log with you to your nextappointment. Discharge Follow-up with Specialty: SALESMAN/OWNER/Raul; 1 Week As directed Specialty: SALESMAN/OWNER/Raul Follow Up: 1 Week Follow Up Details: BP check Shilpa De Leon APRN 11/28/24 10:11 EDT Csd Cosigned by Bhavya Carter MD at 11/29/2024 9:34 AM EDT Associated attestation - Bhavya Carter MD - 11/29/2024 9:34 AM EDT I have reviewed this documentation and agree. documented in this encounter Medications at Time [...] 6 oxyCODONE (ROXICODONE) 5 MG immediate release tabletIndications : delivery delivered,Postpar hannah care and examination immediately after delivery Take 1 tablet by mouth Every 6 (Six) Hours As Needed for Moderate Pain for up to 3 days. 12 tablet 11/28/2024 10:44 AM EDT 11/28/2024 5 documented as of this encounter Progress Notes * Radha De Souza, ALEE - 11/27/2024 9:08 AM EDT 11/27/2024 Name:Penny Kebede MR#:[id number] PROGRESS NOTE: Post-Op 3 S/P HD:4 Subjective 24 y.o. yo Female s/p CS at 37w1d doing well. Pain well controlled. Tolerating regular dietand having flatus. Lochia normal. She denies headache, visual changes. Objective Vitals Temp: Temp: [97.8 ??F (36.6 ??C)-98.1 ??F (36.7 ??C)] 97.8 ??F (36.6 ??C) Temp src: Oral BP: BP: (111-126)/(62-73) 111/62 Pulse: Heart Rate: [79-96] 79 RR: Resp: [16-18] 16 General Awake, alert, no distress Abdomen Soft, non-distended, fundus firm, below umbilicus, appropriately tender Incision Intact, no erythema or exudate Extremities Calves NT bilaterally I/O last 3 completed shifts: In: - Out: 1949 [Urine:1950] LABS: Lab Results Component Value Date WBC 11.39 (H) 11/26/2024 HGB 9.1 (L) 11/26/2024 HCT 28.8 (L) 11/26/2024 MCV 90.9 11/26/2024 PLT 133 (L) 11/26/2024 : female Assessment 1. POD 3, doing well 2. GHTN/severe preeclampsia--- BP wnl on labetalol 100 qd. LFT trending down. Asymptomatic. 3. MO-- Lovenox qd Plan: Routine postoperative care Active Problems: None Radha De Souza APRN 11/27/2024 09:08 EDT * Radha De Souza APRN - 11/26/2024 8:54 AM EDT 11/26/2024 Name:Penny Kebede MR#:[id number] PROGRESS NOTE: Post-Op 2 S/P HD:3 Subjective 24 y.o. yo Female s/p CS at 37w1d doing well. Pain well controlled. Tolerating regular dietand having flatus. Lochia normal. She denies headache, visual changes. Objective Vitals Temp: Temp: [97.5 ??F (36.4 ??C)-98.8 ??F (37.1 ??C)] 98.2 ??F (36.8 ??C) Temp src: Oral BP: BP: (94-115)/(42-62) 94/42 Pulse: Heart Rate: [77-91] 77 RR: Resp: [16-18] 18 General Awake, alert, no distress Abdomen Soft, non-distended, fundus firm, below umbilicus, appropriately tender Incision Intact, no erythema or exudate Extremities Calves NT bilaterally I/O last 3 completed shifts: In: 2387.9 [I.V.:1750; IV Piggyback:500] Out: 2205 [Urine:1685; Blood:520] LABS: Lab Results Component Value Date WBC 11.39 (H) 11/26/2024 HGB 9.1 (L) 11/26/2024 HCT 28.8 (L) 11/26/2024 MCV 90.9 11/26/2024 PLT 133 (L) 11/26/2024 Infant: female in NICU Assessment 1. POD 2, doing well 2. Preeclampsia-- BP wnl on labetalol 100 qd. asymptomatic. PEP pending. Plan: Routine postoperative care Active Problems: None Radha De Souza APRN 11/26/2024 08:54 EDT * Radha De Souza APRN - 11/25/2024 7:24 AM EDT 11/25/2024 Name:Penny Kebede MR#:[id number] PROGRESS NOTE: Post-Op 1 S/P HD:2 Subjective 24 y.o. yo Female s/p CS at 37w1d doing well. Pain well controlled. Tolerating regular dietand having flatus. Lochia normal. She denies headache, visual changes. Objective Vitals Temp: Temp: [97.6 ??F (36.4 ??C)-99 ??F (37.2 ??C)] 98.3 ??F (36.8 ??C) Temp src: Oral BP: BP: (84-161)/(47-95) 94/52 Pulse: Heart Rate: [65-95] 79 RR: Resp: [14-18] 16 General Awake, alert, no distress Abdomen Soft, non-distended, fundus firm, below umbilicus, appropriately tender Incision Intact, no erythema or exudate Extremities Calves NT bilaterally I/O last 3 completed shifts: In: 2387.9 [I.V.:1750; IV Piggyback:500] Out: 680 [Urine:160; Blood:520] LABS: Lab Results Component Value Date WBC 9.65 11/23/2024 HGB 12.1 11/23/2024 HCT 37.0 11/23/2024 MCV 87.7 11/23/2024 PLT 202 11/23/2024 Infant: female Assessment 1. POD 1, doing well; am labs pending 2. Preeclampsia--- BP wnl this am; asymptomatic. PEP pending. Labetalol 100 qd ordered. 3. MO--- Lovenox Plan: Routine postoperative care. Advance. Active Problems: None Radha De Souza APRN 11/25/2024 07:25 EDT * Bhavya Carter MD - 11/24/2024 11:08 PM EDT No cervical change since 1399 Proceed with section * Bhavya Carter MD - 11/24/2024 9:00 AM EDT AROM CLear NST RX documented in this encounter H&P Notes * Bhavya Carter MD - 11/23/2024 9:00 PM EDT Images from the original note were not included. History and Physical [place] [facility] Chief Complaint Patient presents with Scheduled Induction Penny Kebede is a 24 y.o. year old with an Estimated Date of Delivery: 12/14/24 currently at 37w1d presenting with preeclampsia, SIMS. care has been with Dr. Carter. It has been significant for preeclampsia, elevated liver functions most likely related to SIMS, . Active Hospital Problems Diagnosis No Additional Complaints Reported The following portions of the patient's history were reviewed and updated as appropriate:vital signs, allergies, current medications, past medical history, past social history, past surgical history,and problem list. Review of Systems Pertinent items are noted in HPI. Objective BP 146/83 Pulse 76 Temp 98.2 ??F (36.8 ??C) (Oral) Resp 18 Ht 160 cm (62.99 ) Wt 135 kg (298 lb 9.6 oz) LMP 02/25/2024 (Approximate) No BMI 52.91 kg/m?? Physical Exam General: well developed; well nourished no acute distress mentation appropriate Abdomen: soft, non-tender; no masses no umbilical or inguinal hernias are present no hepato-splenomegaly FHT's: reactive and category 1 Cervix: 1/50 [place]: Contraction are irregular Lab Review Labs: No data reviewed Lab Results (last 24 hours) Procedure Component Value Units Date/Time Protein / Creatinine Ratio, Urine - Urine, Clean Catch [[id number]] Collected: 11/23/24 2315 Specimen: Urine, Clean Catch Updated: 11/24/24 09 Protein/Creatinine Ratio, Urine 102.9 mg/G Crea Creatinine, Urine 128.3 mg/dL Total Protein, Urine 13.2 mg/dL Treponema pallidum AB w/Reflex RPR [[id number]] (Normal) Collected: 11/23/242047 Specimen: Blood Updated: 11/24/24 025 Treponemal AB Total Non-Reactive Narrative: Reactive results will reflex RPR testing. Lactate Dehydrogenase [[id number]] (Abnormal) Collected: 11/23/242047 Specimen: Blood Updated: 11/23/242205 LDH 242 U/L Comment: Specimen hemolyzed. Results may be affected. Uric Acid [[id number]] (Normal) Collected: 11/23/242047 Specimen: Blood Updated: 11/23/242205 Uric Acid 5.1 mg/dL Comment: Falsely depressed results may occur on samples drawn from patients receiving N-Acetylcysteine (NAC) or Metamizole. Comprehensive Metabolic Panel [[id number]] (Abnormal) Collected: 11/23/242047 Specimen: Blood Updated: 11/23/242205 Glucose 116 mg/dL BUN 7.0 mg/dL Creatinine 0.50 mg/dL Sodium 137 mmol/L Potassium 4.0 mmol/L Chloride 107 mmol/L CO2 19.1 mmol/L Calcium 8.9 mg/dL Total Protein 5.9 g/dL Albumin 3.4 g/dL ALT (SGPT) 90 U/L AST (SGOT) 52 U/L Alkaline Phosphatase 129 U/L Total Bilirubin 0.3 mg/dL Globulin 2.5 gm/dL Comment: Calculated Result A/G Ratio 1.4 g/dL BUN/Creatinine Ratio 14.0 Anion Gap 10.9 mmol/L eGFR 133.7 mL/min/1.73 Narrative: GFR Categories in Chronic Kidney Disease (CKD) GFR Category GFR (mL/min/1.73) Interpretation G1 90 or greater Normal or high (1) G2 60-89 Mild decrease (1) G3a 45-59 Mild to moderate decrease G3b 30-44 Moderate to severe decrease G4 15-29 Severe decrease G5 14 or less Kidney failure (1)In the absence of evidence of kidney disease, neither GFR category G1 or G2 fulfill the criteriafor CKD. eGFR calculation 2020 CKD-EPI creatinine equation, which does not include race as a factor CBC (No Diff) [[id number]] (Normal) Collected: 11/23/242047 Specimen: Blood Updated: 11/23/242143 WBC 9.65 10*3/mm3 RBC 4.22 10*6/mm3 Hemoglobin 12.1 g/dL Hematocrit 37.0 % MCV 87.7 fL MCH 28.7 pg MCHC 32.7 g/dL RDW 14.3 % RDW-SD 45.6 fl MPV 11.6 fL Platelets 202 10*3/mm3 Imaging No data reviewed Imaging Results (Most Recent) None Assessment & Plan ASSESSMENT IUP at 37w1d Preeclampsia Elevated LFT PLAN Admit for cervical ripening and induction of labor. Bahvya Carter MD 0:51 EDT documented in this encounter Procedure Notes * Adithya Nelson MD - 11/23/2024 9:43 PM EDTAssociated Order(s): CLEMENTS BULB CERVICAL RIPENING Pre-Procedure Diagnose(s): 37 weeks gestation of ; Gestational hypertension without significant proteinuria during in third trimester, antepartum; Rigid cervix (uteri) affecting , third trimester Post-Procedure Diagnose(s): 37 weeks gestation of ; Gestational hypertension without significant proteinuria during in third trimester, antepartum; Rigid cervix (uteri) affecting , third trimester Transcervical Clements placed per physician request. FHT's class 1. Patient tolerated well. 24 indonesian,60ml. Adithya Nelson MD 11/23/2024 21:45 EDT documented in this encounter Nursing Notes * Esdras Sargent RN - 11/28/2024 12:59 PM EDT Goal Outcome Evaluation: D/C home today. Following up with Dr. Carter per her instructions Pt providing self care independently. * Alicia Salas RN - 11/28/2024 8:20 AM EDT 11/28/24 0820 Maternal Information Date of Referral 11/28/24 Person Making Referral financial operations consultant (courtesy prior to discharge) Maternal Reason for Referral other (see comments) (mother reporting well with pumping; getting drops, encouraged normal for early days, but to continue pumping every three hours around the clock for optimal milk supply; inquired about pump for preemie; encouraged discussing with NEW VEHICLE SALES CONSULTANT.) No other needs/concerns. To call PRN. * Kimberly Nicolas RN - 11/25/2024 6:08 PM EDT 11/25/24 1808 Maternal Information Date of Referral 11/25/24 Person Making Referral financial operations consultant Maternal Reason for Referral separation from Infant Reason for Referral separation from mother Milk Expression/Equipment Breast Pump Type double electric, hospital grade;manual pump Breast Pump Flange Type hard Breast Pump Flange Size other (see comments) (18 to try) Breast Pumping Breast Pumping Interventions early pumping promoted;frequent pumping encouraged;other (see comments) (encouraged to pump q 3 hours around the clock to build optimal milk supply if that is what she would like to do) Returned to pt. Room to complete education. Infant was initially coming down, but now admitted to NICU for low BS. Mom states she got drops of milk the first times pumping. Reviewed NICU teaching packet. Sterilized # 18 mm flanges. Took manual breast pump and demonstrated use. Wash basin, soap, sterilization bag, and sterile oral syringes all with instruction on use provided. Parents v/u. Reviewed pumping log and what is normal to expect for output. Mom v/u. Encouraged to continue pumping q 3 hours around the clock to build optimal milk supply if that is what she would like to do. Encouraged to call with any questions/concerns. Encouraged to call outpatient clinic prn after dischar ge. * Kimberly Nicolas RN - 11/25/2024 12:00 PM EDT 11/25/24 1200 Maternal Information Date of Referral 11/25/24 Person Making Referral financial operations consultant Maternal Reason for Referral no prior experience Reason for Referral 35-37 weeks gestation; ;other (see comments) (coming down from NICU) Maternal Assessment Breast Size Issue none Breast Shape Bilateral:;wide;angled Breast Density Bilateral:;soft Nipples Bilateral:;everted;short Left Nipple Symptoms intact;nontender Right Nipple Symptoms intact;nontender Maternal Infant Feeding Maternal Emotional State relaxed;receptive;other (see comments) (states exhausted) Milk Expression/Equipment Breast Pump Type double electric, hospital grade Breast Pump Flange Type hard Breast Pump Flange Size 21 mm;other (see comments) (will take 18 mm) Breast Pumping Breast Pumping Interventions early pumping promoted;frequent pumping encouraged;other (see comments) (encouraged to pump q 3 hours to build optimal mlik supply if that is what she would like to do) Referrals Referrals outpatient program Outpatient Program Follow-up Date/Time prn after discharge Courtesy visit to newly Mom of who has been in NICU. Infant has just came down [facility]. Mom laying in chair when I walked in room. She states she is very exhausted, but does want to go ahead and start pumping now. I setup hospital pump and demonstrated use. Will start with 21 mm flange and will sterilize and take #18 mm flange to try next pumping session. Mom has wide angles breasts. Dad very helpful in holding flange for Mom on left breast as she is not able to bend left arm with her IV placement. Will return for more education. Parents have no questions at this time. * Heydi Lam RN - 11/24/2024 6:58 PM EDT Goal Outcome Evaluation: NOREEN ESPINOZA, anjel @[facility], [facility] /-2 documented in this encounter OR Notes * Op Note - Bhavya Carter MD - 11/24/2024 11:25 PM EDT Section Procedure Note Indications: Arrest of dilation Pre-operative Diagnosis: 1: 37w1d 2. Obesity Antepartum mild preeclampsia Elevated liver enzymes delivery delivered care and examination immediately after delivery Post-operative Diagnosis: 1: Same. . Procedures: Procedure(s): SECTION PRIMARYLTUI Surgeon: Bhavya Carter MD Commercial Airplane Pilot: Anesthesia: Choice Estimated Blood Loss: 800 cc Infant: Gender: female infant Weight: 3510 g (7 lb 11.8 oz) Apgars: 7 @ 1 minute / 9 @ 5 minutes Findings: The was delivered from the Presentation/Position: Vertex; The amnionic fluid was Clear Drains: Clements catheter to straight drainage. Specimens: * No order type specified * Antibiotics: Cefazolin and Zithromax Complications: None; patient tolerated the procedure well. Disposition: PACU - hemodynamically stable. Condition: stable Procedure Details The patient was seen in the Holding Room. The risks, benefits, complications, treatment options, and expected outcomes were discussed with the patient. The patient concurred with the proposed plan, giving informed consent. The patient was taken to the Operating Room, identified as Penny Kebede and the procedure verified as Delivery. A Time Out was held and the above information confirmed. After an adequate level of anesthesia was obtained, the patient was draped and prepped in the usualsterile manner. A Pfannenstiel incision was made and carried down through the subcutaneous tissue to the fascia. Fascial incision was made and extended transversely with the Magana scissors. The fasciawas bluntly and sharply from the underlying rectus tissue superiorly and inferiorly. The rectus muscles were divided sharply. The peritoneum was identified and entered. Peritoneal incision was extended longitudinally taking care not to injure the bladder and bowel. The bladder flap was sharply and bluntly developed A low transverse uterine incision was made with the scalpel. Delivered from Vertex. After the umbilical cord was milked, clamped and cut, cord blood was obtained for evaluation. The placenta was expressed intact and appeared normal. The uterus was everted from the abdomenand curetted with a moist lap sponge x 2. The uterine outline, tubes and ovaries appeared normal. The uterine incision was closed in two layers with a running continuous locking suture of #1 chromic. Hemostasis was obtained. Irrigation was performed and counts were correct; The uterus was replaced into the abdomen and the lateral gutters were irrigated. The incision was reinspected and noted to be hemostatic. Intercede was placed over the hysterotomy. The peritoneum was closed with a running continuous suture of 2-0 Vicryl; The rectus muscles reapproximated with interrupted sutures of 2-0 Vicryl. The fascia was then reapproximated with running sutures of 0 Vicryl. The subcutaneous layer wasirrigated, noted to be hemostatic, and closed with 3-0 plain Gut. The skin was reapproximated with lynda. Instrument, sponge, and needle counts were correct prior the abdominal closure and at the conclusion of the case. The patient went to the Recovery Room in stable condition with the clements draining clear urine. Bhavya Carter MD 11/30/2024 09:23 EDT documented in this encounter Plan of Treatment Upcoming Encounters Date Type Department Care Team (Late st Contact Info) Description 01/12/2025 2:00 PM EDT Visit [facility] OBGYN [address] [facility] [address] [place] [address] Sheldon Godoy, MORTAR WORKER [address] [facility] [address] [place] [address] 09/22/2025 2:45 PM EDT Office Visit [facility] SLEEP MEDICINE [address] [facility] [address] [place] [address] Dave Montaño, MORTAR WORKER [address] [place] [address] documented as of this encounter Procedures Procedure Name Priority Date/Time Associated Diagnosis Comments CBC WITH AUTO DIFFERENTIAL Routine 11/28/2024 6:22 AM EDT CBC AND DIFFERENTIAL Routine 11/28/2024 6:22 AM EDT PRE-ECLAMPSIA PANEL STAT 11/26/2024 1 :37 PM EDT CBC WITH AUTO DIFFERENTIAL Timed 11/26/2024 4:45 AM EDT CBC AND DIFFERENTIAL Timed 11/26/2024 4:45 AM EDT BLOOD GAS, VENOUS, CORD Routine 11/24/2024 11:54 PM EDT BLOOD GAS, ARTERIAL, CORD Routine 11/24/2024 11:53 PM EDT SECTION PRIMARY 11/24/2024 10:59 PM EDT PROTEIN / CREATININE RATIO, URINE Routine 11/23/2024 11:15 PM EDT [facility] BULB CERVICAL RIPENING Routine 11/23/2024 9:43 PM EDT TREPONEMA PALLIDUM AB W/REFLEX RPR Routine 11/23/2024 8:48 PM EDT CBC (NO DIFF) Routine 11/23/2024 8:48 PM EDT TYPE AND SCREEN Routine 11/23/2024 8:48 PM EDT URIC ACID Routine 11/23/2024 8:48 PM EDT LACTATE DEHYDROGENASE Routine 11/23/2024 8:48 PM EDT COMPREHENSIVE METABOLIC PANEL Routine 11/23/2024 8:48 PM EDT documented in this encounter Results * (ABNORMAL) CBC Auto Differential (11/28/2024 6:22 AM EDT) WBC 4.72 3.40 - 10.80 10*3/mm3 11/28/2024 7:38 AM [facility] RBC 3.12(L) 3.77 - 5.28 10*6/mm3 11/28[facility]24 7[facility] Hemoglobin 8.9(L) 12.0 - 15.9 g/dL 11/28/2024 7:38 AM [facility] Hematocrit 28.7(L) 34.0 - 46.6 % 11/28/2024 7:38 [facility] MCV 92.0 79.0 - 97.0 fL 11/28/2024 7:38 AM [facility] MCH 28.5 26.6 - 33.0 pg 11/28/2024 7:38 AM [facility] MCHC 31.0(L) 31.5 - 35.7 g/dL 11/28/2024 7:38 AM [facility] RDW 15.0 12.3 - 15.4 % 11/28/2024 7:38 AM [facility] RDW-SD 50.3 37.0 - 54.0 fl 11/28/2024 7:38 AM [facility] MPV 10.6 6.0 - 12.0 fL 11/28/2024 7:38 AM [facility] Platelets 192 140 - 450 10*3/mm3 11/28/2024 7:38 AM [facility] Neutrophil % 53.0 42.7 - 76.0 % 11/28/2024 7:38 AM [facility] Lymphocyte % 30.9 19.6 - 45.3 % 11/28/2024 7:38 AM [facility] Monocyte % 12.1(H) 5.0 - 12.0 % 11/28/2024 7:38 AM [facility] Eosinophil % 3.4 0.3 - 6.2 % 11/28/2024 7:38 AM [facility] Basophil % 0.4 0.0 - 1.5 % 11/28/2024 7:38 [facility] Immature Grans % 0.2 0.0 - 0.5 % 11/28/2024 7:38 AM EDT [facility] Neutrophils, Absolute 2.50 1.70 - 7.00 10*3/mm3 11/28/2024 7:38 AM EDT [facility] Lymphocytes, Absolute 1.46 0.70 - 3.10 10*3/mm3 11/28/2024 7:38 AM EDT [facility] Monocytes, Absolute 0.57 0.10 - 0.90 10*3/mm3 11/28/2024 7:38 AM EDT [facility] Eosinophils, Absolute 0.16 0.00 - 0.40 10*3/mm3 11/28/2024 7:38 AM EDT [facility] Basophils, Absolute 0.02 0.00 - 0.20 10*3/mm3 11/28/2024 7:38 AM EDT [facility] Immature Grans, Absolute 0.01 0.00 - 0.05 10*3/mm3 11/28/2024 7:38 AM EDT [facility] nRBC 0.0 0.0 - 0.2 /100 WBC 11/28/2024 7:38 AM EDT [facility] Blood Venipuncture / Unknown 11/28/2024 6:22 AM EDT 11/28/2024 7:12 AM EDT us Radha De Souza [employer] WORK[employer] LAB BLOOD ORDERABLES Final Re sult [facility]
[address] [place] [address], * (ABNORMAL) Preeclampsia Panel (11/26/2024 1:37 PM EDT) Alkaline Phosphatase 107 39 - 117 U/L 11/26/2024 2:04 PM EDT [facility] ALT (SGPT) 48(H) 1 - 33 U/L 11/26/2024 2:04 PM EDT [facility] AST (SGOT) 23 1 - 32 U/L 11/26/2024 2:04 PM EDT [facility] Creatinine 0.61 0.57 - 1.00 mg/dL 11/26/2024 2:04 PM EDT [facility] Total Bilirubin 0.2 0.0 - 1.2 mg/dL 11/26/2024 2:04 PM EDT [facility] LDH 237(H) 135 - 214 U/L 11/26/2024 2:04 PM EDT [facility] Comment:Specimen hemolyzed. Results may be affected. Uric Acid 6.3(H) 2.4 - 5.7 mg/dL 11/26/2024 2:04 PM EDT [facility] Blood Venipuncture / Unknown 11/26/2024 1:37 PM EDT 11/26/2024 1:44 PM EDT us Radha De Souza [employer] WORK[employer] LAB BLOOD ORDERABLES Final Re sult [facility]
[address] [place] [id number], * (ABNORMAL) CBC Auto Differential (11/26/2024 4:45 AM EDT) WBC 11.39(H) 3.40 - 10.80 10*3/mm3 11/26/2024 5:41 AM EDT [facility] RBC 3.17(L) 3.77 - 5.28 10*6/mm3 11/26/2024 5:41 AM EDT [facility] Hemoglobin 9.1(L) 12.0 - 15.9 g/dL 11/26/2024 5:41 AM EDT [facility] Hematocrit 28.8(L) 34.0 - 46.6 % 11/26/2024 5:41 AM EDT [facility] MCV 90.9 79.0 - 97.0 fL 11/26/2024 5:41 AM [facility] MCH 28.7 26.6 - 33.0 pg 11/26/2024 5:41 AM [facility] MCHC 31.6 31.5 - 35.7 g/dL 11/26/2024 5:41 AM [facility] RDW 14.5 12.3 - 15.4 % 11/26/2024 5:41 AM [facility] RDW-SD 48.3 37.0 - 54.0 fl 11/26/2024 5:41 AM [facility] MPV 11.5 6.0 - 12.0 fL 11/26/2024 5:41 AM [facility] Platelets 133(L) 140 - 450 10*3/mm3 11/26/2024 5:41 AM [facility] Neutrophil % 76.4(H) 42.7 - 76.0 % 11/26/2024 5:41 AM [facility] Lymphocyte % 14.3(L) 19.6 - 45.3 % 11/26/2024 5:41 AM [facility] Monocyte % 8.3 5.0 - 12.0 % 11/26/2024 5:41 AM [facility] Eosinophil % 0.4 0.3 - 6.2 % 11/26/2024 5:41 AM [facility] Basophil % 0.2 0.0 - 1.5 % 11/26/2024 5:41 AM [facility] Immature Grans % 0.4 0.0 - 0.5 % 11/26/2024 5:41 AM [facility] Neutrophils, Absolute 8.70(H) 1.70 - 7.00 10*3/mm3 11/26/2024 5:41 AM [facility] Lymphocytes, Absolute 1.63 0.70 - 3.10 10*3/mm3 11/26/2024 5:41 AM [facility] Monocytes, Absolute 0.95(H) 0.10 - 0.90 10*3/mm3 11/26/2024 5:41 AM EDT [facility] Eosinophils, Absolute 0.05 0.00 - 0.40 10*3/mm3 11/26/2024 5:41 AM EDT [facility] Basophils, Absolute 0.02 0.00 - 0.20 10*3/mm3 11/26/2024 5:41 AM EDT [facility] Immature Grans, Absolute 0.04 0.00 - 0.05 10*3/mm3 11/26/2024 5:41 AM EDT [facility] nRBC 0.0 0.0 - 0.2 /100 WBC 11/26/2024 5:41 AM EDT [facility] Blood Venipuncture / Unknown 11/26/2024 4:45 AM EDT 11/26/2024 5:28 AM EDT us Kaylene Brown MD LAB BLOOD ORDERABLES Final Resu lt [facility]
[address] [place] [id number], * (ABNORMAL) Blood Gas, Venous, Cord (11/24/2024 11:54 PM EDT) Site Umbilical 11/25/2024 12:01 AM EDT [facility] THERAP[facility] pH, Cord Venous 7.313 7.310 - 7.370 pH Units 11/25/2024 12:01 AM EDT [facility] THERAP[facility] pCO2, Cord Venous 49.9(H) 28.0 - 40.0 mm Hg 11/25/2024 12:01 AM EDT [facility] THER[facility] pO2, Cord Venous 18.8(L) 21.0 - 31.0 mm Hg 11/25/2024 12:01 AM EDT [facility] THER[facility] HCO3, Cord Venous 25.3(H) 18.6 - 21.4 mmol/L 11/25/2024 12:01 AM EDT [facility] THER[facility] Base Excess, Cord Venous -1.6(L) 0.0 - 2.0 mmol/L 11/25/2024 12:01 AM EDT [facility] THER[facility] O2 Sat, Cord Venous 39.4 % 11/25/2024 12:01 AM EDT [facility]ER[facility] Hemoglobin, Blood Gas 15.1 14 - 18 g/dL 11/25/2024 12:01 AM EDT [facility] THER[facility] CO2 Content 26.8 22 - 33 mmol/L 11/25/2024 12:01 AM EDT [facility] THERAPY Temperature 37.0 11/25/2024 12:01 AM EDT [facility] Barometric Pressure for Blood Gas 11/25/2024 12:01 AM EDT [facility] Comment:N/A Modality Room Air 11/25/2024 12:01 AM EDT [facility] THERAPY FIO2 21 % 11/25/2024 12:01 AM EDT [facility] THERAPY Ventilator Mode 12:01 AM EDT [facility]ER[facility] Rate 0 Breaths/m inute 11/25/2024 12:01 AM EDT [facility] THERAP[facility] PIP 0 cmH2O 11/25/2024 12:01 AM EDT [facility] Comment:Meter: [id number] Lan Engineer: [id number] IPAP 0 11/25/2024 12:01 AM EDT [facility]ER[facility] EPAP 0 11/25/2024 12:01 AM EDT [facility] O2 Saturation Calculated 11/25/2024 12:01 AM EDT [facility] Comment:Calculated O2 satura tion result not reported at this site. Cord Blood Venous Umbilical cord structure / Unknown 11/24/2024 11:54 PM EDT 11/24/2024 11:54 PM EDT us Bhavya Carter MD LAB BLOOD ORDERABLES Final Resu lt [facility]ER[facility]
[address] [place] [id number], * (ABNORMAL) Blood Gas, Arterial, Cord (11/24/2024 11:53 PM EDT) Site Umbilical 11/25/2024 12:00 AM EDT [facility] pH, Cord Arterial 7.27 7.22 - 7.30 pH Units 11/25/2024 12:00 AM EDT [facility] THER[facility] pCO2, Cord Arterial 56.9(H) 43.3 - 54.9 mmHg 11/25/2024 12:00 AM EDT [facility] pO2, Cord Arterial 13.6 11.5 - 43.3 mmHg 11/25/2024 12:00 AM EDT [facility] HCO3, Cord Arterial 25.9(H) 16.9 - 20.5 mmol/L 11/25/2024 12:00 AM EDT [facility] Base Exc, Cord Arterial -2.3(L) 0.0 - 2.0 mmol/L 11/25/2024 12:00 AM EDT [facility] O2 Sat, Cord Arterial 19.8 % 11/25/2024 12:00 AM EDT [facility] Hemoglobin, Blood Gas 15.6 14 - 18 g/dL 11/25/2024 12:00 AM EDT [facility] CO2 Content 27.6 22 - 33 mmol/L 11/25/2024 12:00 AM T [facility] Temperature 37.0 11/25/2024 12:00 AM EDT [facility] Barometric Pressure for Blood Gas 11/25/2024 12:00 AM T [facility] Comment:N/A Modality Room Air 11/25/2024 12:00 AM [facility] FIO2 21 % 11/25/2024 12:00 AM EDT [facility] THER[facility] Rate 0 Breaths/m inute 11/25/2024 [facility] PIP 0 cmH2O 11/25/2024 12:00 AM EDT [facility] Comment:Meter: [id number] [id number] Lan Engineer: [id number] IPAP 0 11/25/2024 12:00 AM EDT [facility] THER[facility] EPAP 0 11/25/2024 12:00 AM EDT [facility] Note 0 11/25/2024 12:00 AM EDT [facility] Cord Blood Arterial Umbilical cord structure / Unknown 11/24/2024 11:53 PM EDT 11/24/2024 11:53 PM EDT Bhavya Carter MD LAB BLOOD ORDERABLES Final Resu lt [facility]
[address] [place] [address], * Protein / Creatinine Ratio, Urine - Urine, Clean Catch (11/23/2024 11:15 PM EDT) Protein/Creati nine Ratio, Urine 102.9 0.0 - 200.0 mg/G Crea 11/24/2024 9:27 AM EDT [facility] Creatinine, Urine 128.3 mg/dL 11/24/2024 9:27 AM EDT [facility] Total Protein, Urine 13.2 mg/dL 11/24/2024 9:27 AM EDT [facility] Urine Urine specimen obtained by clean catch procedure / Unknown Collection / Unknown 11/23/2024 11:15 PM EDT 11/23/2024 11:45 PM EDT Bhavya Carter MD URINE ORDERABLES Final Result [facility]
[address] [place] [address], * Clements Bulb Cervical Ripening Without Infusion (11/23/2024 9:43 PM EDT) Narrative Adithya Nelson MD - 11/23/2024 9:43 PM EDAdithya Thapa MD 11/23/2024 9:45 PM Transcervical Clements placed per physician request. FHT's class 1. Patient tolerated well. 24 indonesian, 60ml. Adithya Nelson MD 11/23/2024 21:45 EDT Bhavya Carter MD OB GYNE ORDERABLES Final Result * (ABNORMAL) Comprehensive Metabolic Panel (11/23/2024 8:48 PM EDT) Glucose 116(H) 65 - 99 mg/dL 11/23/2024 10:06 PM EDT [facility] BUN 7.0 6.0 - 20.0 mg/dL 11/23/2024 10:06 PM EDT [facility] Creatinine 0.50(L) 0.57 - 1.00 mg/dL 11/23/2024 10:06 PM EDT [facility] Sodium 137 136 - 145 mmol/L 11/23/2024 10:06 PM EDT [facility] Potassium 4.0 3.5 - 5.2 mmol/L 11/23/2024 10:06 PM EDT [facility] Chloride 107 98 - 107 mmol/L 11/23/2024 10:06 PM EDT [facility] CO2 19.1(L) 22.0 - 29.0 mmol/L 11/23/2024 10:06 PM EDT [facility] Calcium 8.9 8.6 - 10.5 mg/dL 11/23/2024 10:06 PM EDT [facility] Total Protein 5.9(L) 6.0 - 8.5 g/dL 11/23/2024 10:06 PM EDT [facility] Albumin 3.4(L) 3.5 - 5.2 g/dL 11/23/2024 10:06 PM EDT [facility] ALT (SGPT) 90(H) 1 - 33 U/L 11/23/2024 10:06 PM EDT [facility] AST (SGOT) 52(H) 1 - 32 U/L 11/23/2024 10:06 PM EDT [facility] Alkaline Phosphatase 129(H) 39 - 117 U/L 11/23/2024 10:06 PM EDT [facility] Total Bilirubin 0.3 0.0 - 1.2 mg/dL 11/23/2024 10:06 PM EDT [facility] Globulin 2.5 gm/dL 11/23/2024 10:06 PM EDT [facility] Comment:Calculated Result A/G Ratio 1.4 g/dL 11/23/2024 10:06 PM EDT [facility] BUN/Creatinine Ratio 14.0 7.0 - 25.0 11/23/2024 10:06 PM EDT [facility] Anion Gap 10.9 5.0 - 15.0 mmol/L 11/23/2024 10:06 PM EDT [facility] eGFR 133.7 >60.0 mL/min/1.7 3 11/23/2024 10:06 PM EDT [facility] Blood Venipuncture / Unknown 11/23/2024 8:48 PM EDT 11/23/2024 9:26 PM EDT [facility] - 11/23/2024 10:06 PM EDT GFR Categories in Chronic Kidney [...] does not include race as a factor us Bhavya Carter MD LAB BLOOD ORDERABLES Final Resu lt [facility]
[address] [place] [id number], * Uric Acid (11/23/2024 8:48 PM EDT) Pathologist [facility] [place] Uric Acid 5.1 2.4 - 5.7 mg/dL 11/23/2024 10:06 PM EDT [facility] Comment:Falsely depressed re sults may occur on samples drawn from patients receiving N-Acetylcysteine (NAC) or Metamizole. Blood Venipuncture / Unknown 11/23/2024 8:48 PM EDT 11/23/2024 9:26 PM EDT Bhavya Carter MD LAB BLOOD ORDERABLES Final Resu lt Performing Organization Address City/[facility]/ZIP Co de Phone Number [facility]
[address] [place] [address], [place] [phone] * (ABNORMAL) Lactate Dehydrogenase (11/23/2024 8:48 PM EDT) [facility] LDH 242(H) 135 - 214 U/L 11/23/2024 10:06 PM EDT [facility] Comment:Specimen hemolyzed. Results may be affected. Blood Venipuncture / Unknown 11/23/2024 8:48 PM EDT 11/23/2024 9:26 PM EDT Bhavya Carter MD LAB BLOOD ORDERABLES Final Resu lt Performing Organization Address City/[facility]/ZIP Co de Phone Number [facility]
[address] [place] [address], [place] [phone] * Type & Screen (11/23/2024 8:48 PM EDT) [facility] ABO Type O 11/23/2024 10:02 PM EDT [facility] RH type Positive 11/23/2024 10:02 PM EDT [facility] Antibody Screen Negative 11/23/2024 10:02 PM EDT [facility] T&S Expiration Date 11/26/2024 11:59:59 PM 11/23/2024 10:02 PM EDT [facility] Blood Venipuncture / Unknown 11/23/2024 8:48 PM EDT 11/23/2024 9:26 PM EDT us Bhavya Carter MD BLOOD BANK TEST ORDERABLES Edit ed Result - Final [facility]
[address] [place] [address], [place] [phone] * Treponema pallidum AB w/Reflex RPR (11/23/2024 8:48 PM EDT) Pathologist [facility] [place] Treponemal AB Total Non-Reacti ve Non-React noemi 11/24/2024 2:54 AM EDT [facility] Blood Venipuncture / Unknown 11/23/2024 8:48 PM EDT 11/23/2024 9:27 PM EDT Narrative [facility] - 11/24/2024 2:54 AM EDT Reactive results will reflex RPR testing. us Bhavya Carter MD LAB BLOOD ORDERABLES Final Resu lt Performing Organization Address City/[facility]/ZIP Co de Phone Number [facility]
[address] [place] [address], [place] [phone] * CBC (No Diff) (11/23/2024 8:48 PM EDT) WBC 9.65 3.40 - 10.80 10*3/mm3 11/23/2024 9:44 PM EDT [facility] RBC 4.22 3.77 - 5.28 10*6/mm3 11/23/2024 9:44 PM EDT [facility] Hemoglobin 12.1 12.0 - 15.9 g/dL 11/23/2024 9:44 PM EDT [facility] Hematocrit 37.0 34.0 - 46.6 % 11/23/2024 9:44 PM EDT [facility] MCV 87.7 79.0 - 97.0 fL 11/23/2024 9:44 PM EDT [facility] MCH 28.7 26.6 - 33.0 pg 11/23/2024 9:44 PM EDT [facility] MCHC 32.7 31.5 - 35.7 g/dL 11/23/2024 9:44 PM EDT [facility] RDW 14.3 12.3 - 15.4 % 11/23/2024 9:44 PM EDT [facility] RDW-SD 45.6 37.0 - 54.0 fl 11/23/2024 9:44 PM EDT [facility] MPV 11.6 6.0 - 12.0 fL 11/23/2024 9:44 PM EDT [facility] Platelets 202 140 - 450 10*3/mm3 11/23/2024 9:44 PM EDT [facility] Blood Venipuncture / Unknown 11/23/2024 8:48 PM EDT 11/23/2024 9:26 PM EDT us Bhavya Carter MD LAB BLOOD ORDERABLES Final Resu lt [facility]
[address] [place] [id number], documented in this encounter Visit Diagnoses Diagnosis - Primary delivery delivered delivery, without mention of indication, delivered, with or without mention of antepartum condition care and examination immediately after delivery Antepartum mild preeclampsia Elevated liver enzymes Other nonspecific abnormal serum enzyme levels delivery delivered delivery, without mention of indication, delivered, with or without mention of antepartum condition care and examination immediately after delivery documented in this encounter Admitting Diagnoses Diagnosis documented in this encounter Administered Medications Inactive Administered Medications - up to 3 most recent administrations Medication Order MAR Action Action Date Dose Rate Site acetaminophen (TYLENOL) tablet 1,000 mg 1,000 mg, Oral, Once, On Esha 11/24/24 at 2230, For 1 dose, If given for fever, use fever parameter: [...] Pain Score of 7-10, CPOT 5-8 Given 11/24/2024 10:13 PM EDT 1,000 mg acetaminophen (TYLENOL) tablet 1,000 mg 1,000 mg, Oral, Every 6 Hours, First dose on Thu11/25/24 at 0500, For 24 hours, Pharmacy to schedule 6 hours from pre-op dose. Based on patient request - if ordered [...] Pain Score of 7-10, CPOT 5-8 Given 11/25/2024 6:26 PM EDT 1,000 mg Given 11/25/2024 5:31 AM EDT 1,000 mg acetaminophen (TYLENOL) tablet 1,000 mg 1,000 mg, Oral, Every 6 Hours, First dose on Thu11/25/24 at 1100, For 24 hours, Pharmacy to schedule 6 hours from pre-op dose. Based on patient request - if ordered [...] Pain Score of 7-10, CPOT 5-8 Given 11/26/2024 5:20 AM EDT 1,000 mg Given 11/25/2024 11:30 PM EDT 1,000 mg Given 11/25/2024 11:27 AM EDT 1,000 mg acetaminophen (TYLENOL) tablet 650 mg 650 mg, Oral, Every 6 Hours, First dose on 11/26/24 at 1100, Based on patient request - if ordered [...] Pain Score of 7-10, CPOT 5-8 Given 11/28/2024 10:17 AM EDT 650 mg Given 11/28/2024 4:42 AM EDT 650 mg Given 11/27/2024 10:45 PM EDT 650 mg aluminum-magnesium hydroxide-simethicone (MAALOX MAX) 400-400-40 MG/5ML suspension 15 mL 15 mL, Oral, Every 4 Hours PRN, Indigestion, Starting on Thu11/25/24 at 0611, Maximum 60 mL in 24 hours. amitriptyline (ELAVIL) tablet 50 mg 50 mg, Oral, Nightly, First dose on Thu11/23/24 at 2300 Given 11/23/2024 11:07 PM EDT 50 mg amitriptyline (ELAVIL) tablet 50 mg 50 mg, Oral, Nightly, First dose on Thu11/25/24 at 2100 Given 11/27/2024 8:30 PM EDT 50 mg Given 11/26/2024 10:05 PM EDT 50 mg Given 11/25/2024 8:29 PM EDT 50 mg azithromycin (ZITHROMAX) 500 mg in sodium chloride 0.9 % 250 mL IVPB-VTB 500 mg, Intravenous, Administer over 60 Minutes, Once, On Esha 11/24/24 at 2230, For 1 dose, Activate vial before use., Indications: Surgical ProphylaxisIndications:Surgical Prophylaxis Bolus 11/24/2024 11:16 PM EDT 500 mg New Bag 11/24/2024 10:48 PM EDT 500 mg butorphanol (STADOL) injection 2 mg 2 mg, Intravenous, Every 2 Hours PRN, Severe Pain, Starting on Thu11/23/24 at 2325, Based on patient request - if ordered for moderate or severe pain, provider allows for administration of a medication prescribed for a lower pain scale. (RACHELLE) If given for pain, use the following pain scale: Mild Pain = Pain Score of 1-3, CPOT 1-2 Moderate Pain = Pain Score of 4-6, CPOT 3-4 Severe Pain = Pain Score of 7-10, CPOT 5-8 Given 11/24/2024 3:14 AM EDT 2 mg Given 11/24/2024 12:38 AM EDT 2 mg calcium carbonate (TUMS) chewable tablet 500 mg (200 mg elemental) 2 tablet, Oral, Once, On Thu11/23/24 at 2115, For 1 dose, One tablet contains 200 mg elemental calcium. Take with food. Given 11/23/2024 10:21 PM EDT 2 tablets calcium carbonate (TUMS) chewable tablet 500 mg (200 mg elemental) 1 tablet, Oral, Every 4 Hours PRN, Indigestion, Heartburn, Starting on Thu11/25/24 at 0611, One tablet contains 200 mg elemental calcium. Take with food. ceFAZolin 3000 mg IVPB in 100 mL NS (MBP) 3,000 mg, Intravenous, Administer over 30 Minutes, Once, On Esha 11/24/24 at 2230, For 1 dose, Caution: Look alike/sound alike drug alert, Indications: Surgical ProphylaxisIndications:Surgical Prophylaxis New Bag 11/24/2024 10:48 PM EDT 3,000 mg cetirizine (zyrTEC) tablet 10 mg 10 mg, Oral, Nightly, First dose on Thu11/23/24 at 2300 Given 11/23/2024 11:07 PM EDT 10 mg docusate sodium (COLACE) capsule 100 mg 100 mg, Oral, 2 Times Daily, First dose on Thu11/23/24 at 2300, Swallow whole. Do not open, crush, or chew capsule. Given 11/25/2024 9:07 AM EDT 100 mg Given 11/24/2024 8:33 AM EDT 100 mg Given 11/23/2024 10:21 PM EDT 100 mg docusate sodium (COLACE) capsule 100 mg 100 mg, Oral, 2 Times Daily PRN, Constipation, Starting on Thu11/25/24 at 0611, Swallow whole. Do not open, crush, or chew capsule. Given 11/27/2024 8:30 PM EDT 100 mg Given 11/27/2024 7:33 AM EDT 100 mg Given 11/26/2024 12:57 PM EDT 100 mg enoxaparin sodium (LOVENOX) syringe 40 mg 40 mg, Subcutaneous, Every 12 Hours, First dose on 11/26/24 at 0900, Request Pharmacy verify spinal/epidural time and start the injection 24 hour from Spinal placement or Epidural cath removal Give subcutaneous in abdomen only. Do not massage site after injection., Indications: VTE ProphylaxisIndications:VTE Prophylaxis Given 11/28/2024 8:22 AM EDT 40 mg Left Lower Abdomen Given 11/27/2024 8:30 PM EDT 40 mg Le ft Lower Abdomen Given 11/27/2024 7:34 AM EDT 40 mg Ri ght Lower Abdomen ibuprofen (ADVIL,MOTRIN) tablet 600 mg 600 mg, Oral, Every 6 Hours, First dose on Thu11/26/24 at 0800, Based on patient request - if ordered for moderate or severe pain, provider allows for administration of a medication prescribed for a lower pain scale. Mucous membrane irritant. Do not crush or chew tablet or capsule unless administered through a feeding tube. If given for pain, use the following pain scale: Mild Pain = Pain Score of 1-3, CPOT 1-2 Moderate Pain = Pain Score of 4-6, CPOT 3-4 Severe Pain = Pain Score of 7-10, CPOT 5-8 Given 11/28/2024 8:23 AM EDT 600 mg Given 11/28/2024 1:50 AM EDT 600 mg Given 11/27/2024 8:30 PM EDT 600 mg ketorolac (TORADOL) injection 15 mg 15 mg, Intravenous, Every 6 Hours, First dose on Thu11/25/24 at 0800, For 24 hours, Pharmacy to schedule 6 hours from PACU dose. ([facility]) If given for pain, use the following pain scale: Mild Pain = Pain Score of 1-3, CPOT 1-2 Moderate Pain = Pain Score of 4-6, CPOT 3-4 Severe Pain = Pain Score of 7-10, CPOT 5-8 Given 11/26/2024 1:47 AM EDT 1 5 mg Given 11/25/2024 8:28 PM EDT 15 mg Given 11/25/2024 4:09 PM EDT 15 mg ketorolac (TORADOL) injection 30 mg 30 mg, Intravenous, Once, On Thu11/25/24 at 0445, For 1 dose, Based on patient request - if ordered for moderate or severe pain, provider allows for administration of a medication prescribed for a lower pain scale. ([facility]) If given for pain, use the following pain scale: Mild Pain = Pain Score of 1-3, CPOT 1-2 Moderate Pain = Pain Score of 4-6, CPOT 3-4 Severe Pain = Pain Score of 7-10, CPOT 5-8 Given During Downtime 11/25/2024 1:15 AM EDT 30 mg labetalol (NORMODYNE) tablet 100 mg 100 mg, Oral, Daily, First dose on Thu11/25/24 at 0900, Hold for SBP less than 100, DBP less than 60, or heart rate less than 50. If a dose is held, please contact the provider. Given 11/28/2024 8:23 AM EDT 100 mg Given 11/27/2024 7:33 AM EDT 100 mg Given 11/26/2024 9:14 AM EDT 100 mg lactated ringers infusion 125 mL/hr, Intravenous, Continuous, Starting on Thu11/23/24 at 2115, For 12 days New Bag 11/24/2024 11:56 PM EDT New Bag 11/24/2024 11:09 PM EDT Restarted 11/24/2024 8:52 PM EDT 125 mL/hr 125 mL/hr montelukast (SINGULAIR) tablet 10 mg 10 mg, Oral, Nightly, First dose on Thu11/23/24 at 2300 Given 11/23/2024 10:21 PM EDT 10 mg oxyCODONE (ROXICODONE) immediate release tablet 10 mg 10 mg, Oral, Every 4 Hours PRN, Severe Pain, Starting on Thu11/25/24 at 0611, For 5 days, Based on patient request - if ordered for moderate or severe pain, provider allows for administration of a medication prescribed for a lower pain scale. If given for pain, use the following pain scale: Mild Pain = Pain Score of 1-3, CPOT 1-2 Moderate Pain = Pain Score of 4-6, CPOT 3-4 Severe Pain = Pain Score of 7-10, CPOT 5-8 Given 11/28/2024 8:22 AM EDT 10 mg Given 11/27/2024 10:21 PM EDT 10 mg Given 11/27/2024 2:35 AM EDT 10 mg oxyCODONE (ROXICODONE) immediate release tablet 5 mg 5 mg, Oral, Every 4 Hours PRN, Moderate Pain, Starting on Thu11/25/24 at 0611, For 5 days, Based on patient request - if ordered for moderate or severe pain, provider allows for administration of a medication prescribed for a lower pain scale. (RACHELLE) If given for pain, use the following pain scale: Mild Pain = Pain Score of 1-3, CPOT 1-2 Moderate Pain = Pain Score of 4-6, CPOT 3-4 Severe Pain = Pain Score of 7-10, CPOT 5-8 oxytocin (PITOCIN) 30 units in 0.9% sodium chloride 500 mL (premix) 2-30 april-units/min (2-30 mL/hr), Intravenous, Titrated, Starting on Thu11/23/24 at 2115, Start at 2 april-units/min on arrival and give calcium and propranolol. At 0400 titrate up or down by 2 april-units every 30 min to a max of 20 april-units/min. Titrate to maternal/ tolerance, with a goal of achieving an adequate labor pattern defined by progressive cervical effacement and cervical dilation of approximately 0.5 cm/hr to 1 cm/hr once active labor is achieved. Contractions should not be more frequent than every 2 minutes. If tachysystole occurs with either FHR category III or FHR category III develops without tachysystole, stop oxytocin infusion and notify physician. Notify physician for tachysystole regardless of FHR category. If oxytocin has been stopped for less than 30 minutes, FHR is reassuring and no uterine tachysystole present, oxytocin may be restarted at half the rate that caused tachysystole. If oxytocin has been stopped for 30 minutes or longer, oxytocin must be restarted at the initial dose. Group 2 (Kenvil) Hazardous Drug - Reproductive Risk Only - See Handling Guide Restarted 11/24/2024 8:53 PM EDT 2 april-units/min 2 mL/hr Rate/Dose Change 11/24/2024 7:39 PM EDT 14 april-units/min 14 mL/hr Rate/Dose Change 11/24/2024 6:46 PM EDT 28 april-units/min 28 mL/hr vitamin tablet 1 tablet 1 tablet, Oral, Daily, First dose on Thu11/25/24 at 0900 Given 11/28/2024 8:23 AM EDT 1 tablet Given 11/27/2024 7:33 AM EDT 1 tablet Given 11/26/2024 9:13 AM EDT 1 tablet propranolol (INDERAL) injection 1 mg 1 mg, Intravenous, Once, On Thu11/23/24 at 2115, For 1 dose, Hold for SBP less than 100, DBP less than 60, or heart rate less than 50. If a dose is held, please contact the provider. Given 11/23/2024 11:07 PM EDT 1 mg simethicone (MYLICON) chewable tablet 80 mg 80 mg, Oral, 4 Times Daily PRN, Flatulence, Starting on Thu11/25/24 at 0611 Given 11/27/2024 7:33 AM EDT 80 mg Given 11/26/2024 3:22 PM EDT 80 mg Given 11/26/2024 9:14 AM EDT 80 mg Sod Citrate-Citric Acid (BICITRA) oral solution 30 mL 30 mL, Oral, Once, On Esha 11/24/24 at 1315, For 1 dose, For all section patients no more than 20 minutes prior to transport to the OR. Given 11/24/2024 10:49 PM EDT 30 mL sodium chloride 0.9 % flush 10 mL 10 mL, Intravenous, Every 12 Hours Scheduled, First dose on Thu11/23/24 at 2115 Given 11/24/2024 10:15 PM EDT 10 mL documented in this encounter Active and Recently Administered Medications Times are shown in EDT. Scheduled Medication Order 11/26/2024 11/27/2024 11/28/2024 acetaminophen (TYLENOL) tablet 1,000 mg ()(Linked Group 1) 1,000 mg, Oral, Every 6 Hours, First dose on Thu11/25/24 at 1100, For 24 hours, Pharmacy to schedule 6 hours from pre-op dose. Based on patient request - if ordered [...] = Pain Score of 7-10, CPOT 5-8 0520 (Given - Provider: Mechelle Sierra RN) acetaminophen (TYLENOL) tablet 650 mg(Linked Group 1) 650 mg, Oral, Every 6 Hours, First dose on Thu11/26/24 at 1100, Based on patient request - if ordered [...] = Pain Score of 7-10, CPOT 5-8 1255 (Given - Provider: Yessica Pizarro RN)1722 (Given - Provider: Yessica Pizarro RN)2203 (Given - Provider: Heydi Armando RN) 0600 (Given - Provider: Heydi Armando RN)1033 (Given - Provider: Shilpa Robles RN)1632 (Given - Provider: Shilpa Robles, TOOTIE)2245 (Given - Provider: Betsy Dorsey RN) 0442 (Given - Provider: Betsy Dorsey RN)1017 (Given - Provider: Penny Ruiz RN Wireless Sales Associate) amitriptyline (ELAVIL) tablet 50 mg 50 mg, Oral, Nightly, First dose on Thu11/25/24 at 2100 2205 (Given - Provider: Heydi Armando RN) 2030 (Given - Provider: Betsy Dorsey RN) enoxaparin sodium (LOVENOX) syringe 40 mg 40 mg, Subcutaneous, Every 12 Hours, First dose on 11/26/24 at 0900, Request Pharmacy verify spinal/epidural time and start the injection 24 hour from Spinal placement or Epidural cath removal Give subcutaneous in abdomen only. Do not massage site after injection., Indications: VTE Prophylaxis 09 (Given - Provider: Yessica Pizarro RN)2204 (Given - Provider: Heydi Armanod RN) 0734 (Given - Provider: Shilpa Robles RN)0900 (Due - Provider: Roxanne Lyman, JoshD)2030 (Given - Provider: Betsy Dorsey RN) 0822 (Given - Provider: Penny Ruiz RN Wireless Sales Associate) ibuprofen (ADVIL,MOTRIN) tablet 600 mg(Linked Group 2) 600 mg, Oral, Every 6 Hours, First dose on 11/26/24 at 0800, Based on patient request - if ordered for moderate or severe pain, provider allows for administration of a medication prescribed for a lower pain scale. Mucous membrane irritant. Do not crush or chew tablet or capsule unless administered through a feeding tube. If given for pain, use the following pain scale: Mild Pain = Pain Score of 1-3, CPOT 1-2 Moderate Pain = Pain Score of 4-6, CPOT 3-4 Severe Pain = Pain Score of 7-10, CPOT 5-8 0913 (Given - Provider: Yessica Pizarro RN)1522 (Given - Provider: Yessica Pizarro RN)1946 (Given - Provider: Heydi Armando RN) 0235 (Given - Provider: Heydi Armando RN)0733 (Given - Provider: Shilpa Robles RN)1301 (Given - Provider: Shilpa Robles RN)2030 (Given - Provider: Betsy Dorsey RN) 0150 (Given - Provider: Betsy Dorsey RN)0823 (Given - Provider: Penny Ruiz RN Wireless Sales Associate)1400 (Due) ketorolac (TORADOL) injection 15 mg (COMPLETED)(Linked Group 2) 15 mg, Intravenous, Every 6 Hours, First dose on Thu11/25/24 at 0800, For 24 hours, Pharmacy to schedule 6 hours from PACU dose. ([facility]) If given for pain, use the following pain scale: Mild Pain = Pain Score of 1-3, CPOT 1-2 Moderate Pain = Pain Score of 4-6, CPOT 3-4 Severe Pain = Pain Score of 7-10, CPOT 5-8 0147 (Given - Provider: Mechelle Sierra RN) labetalol (NORMODYNE) tablet 100 mg 100 mg, Oral, Daily, First dose on Thu11/25/24 at 0900, Hold for SBP less than 100, DBP less than 60, or heart rate less than 50. If a dose is held, please contact the provider. 0914 (Given - Provider: Yessica Pizarro RN) 0733 (Given - Provider: Shilpa Robles RN)09 (Due) 0823 (Given - Provider: Penny Ruiz RN Wireless Sales Associate) vitamin tablet 1 tablet 1 tablet, Oral, Daily, First dose on Thu11/25/24 at 0900 0913 (Given - Provider: Yessica Pizarro RN) 0733 (Given - Provider: Shilpa Robles RN)09 (Due) 08 (Given - Provider: Penny Ruiz RN Wireless Sales Associate) PRN Medication Order 11/26/2024 11/27/2024 11/28/2024 aluminum-magnesium hydroxide-simethicone (MAALOX MAX) 400-400-40 MG/5ML suspension 15 mL(Linked Group 3) 15 mL, Oral, Every 4 Hours PRN, Indigestion, Starting on Thu11/25/24 at 0611, Maximum 60 mL in 24 hours. calcium carbonate (TUMS) chewable tablet 500 mg (200 mg elemental)(Linked Group 3) 1 tablet, Oral, Every 4 Hours PRN, Indigestion, Heartburn, Starting on Thu11/25/24 at 0611, One tablet contains 200 mg elemental calcium. Take with food. carboprost (HEMABATE) injection 250 mcg 250 mcg, Intramuscular, As Needed, Bleeding, Starting on Thu11/25/24 at 0611, Refrigerate. Use filter needle to withdraw dose. docusate sodium (COLACE) capsule 100 mg 100 mg, Oral, 2 Times Daily PRN, Constipation, Starting on Thu11/25/24 at 0611, Swallow whole. Do not open, crush, or chew capsule. 1257 (Given - Provider: Yessica Pizarro RN)1946 (Not Given - Provider: Heydi Armando RN - Reason: Patient/family refused) 0733 (Given - Provider: Shilpa Robles RN)2029 (Given - Provider: Betsy Dorsey RN) Hydrocortisone (Perianal) (ANUSOL-HC) 2.5 % rectal cream 1 Application 1 Application, Rectal, As Needed, Hemorrhoids, Starting on Thu11/25/24 at 0611, May leave at bedside lanolin topical 1 Application 1 Application, Topical, Every 1 Hour PRN, Dry Skin, nipple pain, Starting on Thu11/25/24 at 0611, May keep at bedside. methylergonovine (METHERGINE) injection 200 mcg 200 mcg, Intramuscular, Once As Needed, Heavy bleeding, Starting on Thu11/25/24 at 0611, For 1 dose, Group 2 (Kenvil) Hazardous Drug - Reproductive Risk Only - See Handling Guide metoclopramide (REGLAN) tablet 10 mg 10 mg, Oral, As Needed, Vomiting, Heartburn, Starting on Thu11/25/24 at 0611, (SPC) miSOPROStol (CYTOTEC) tablet 600 mcg 600 mcg, Oral, As Needed, Bleeding, Starting on Thu11/25/24 at 0611, Group 2 (Kenvil) Hazardous Drug - Reproductive Risk Only - See Handling Guide oxyCODONE (ROXICODONE) immediate release tablet 10 mg(Linked Group 4) 10 mg, Oral, Every 4 Hours PRN, Severe Pain, Starting on Thu11/25/24 at 0611, For 5 days, Based on patient request - if ordered for moderate or severe pain, provider allows for administration of a medication prescribed for a lower pain scale. If given for pain, use the following pain scale: Mild Pain = Pain Score of 1-3, CPOT 1-2 Moderate Pain = Pain Score of 4-6, CPOT 3-4 Severe Pain = Pain Score of 7-10, CPOT 5-8 0235 (Given - Provider: Heydi Armando RN)2221 (Given - Provider: Betsy Dorsey RN) 0822 (Given - Provider: Penny Ruiz RN Wireless Sales Associate) oxyCODONE (ROXICODONE) immediate release tablet 5 mg(Linked Group 4) 5 mg, Oral, Every 4 Hours PRN, Moderate Pain, Starting on Thu11/25/24 at 0611, For 5 days, Based on patient request - if ordered for moderate or severe pain, provider allows for administration of a medication prescribed for a lower pain scale. (RACHELLE) If given for pain, use the following pain scale: Mild Pain = Pain Score of 1-3, CPOT 1-2 Moderate Pain = Pain Score of 4-6, CPOT 3-4 Severe Pain = Pain Score of 7-10, CPOT 5-8 0235 (Not Given: See Alt - Provider: Heydi Armando RN)2221 (Not Given: See Alt - Provider: Betsy Dorsey RN) 0822 (Not Given: See Alt - Provider: Penny Ruiz RN Wireless Sales Associate) oxytocin (PITOCIN) 30 units in 0.9% sodium chloride 500 mL (premix) 125 mL/hr, Intravenous, Once As Needed, PRN Bleeding for 1 Bag, Starting on Thu11/25/24 at 0611, For 1 dose, Consider 2nd agent prophylactically. Only order if patient is at high risk of bleeding and will need an additional bag (2 total). Group 2 (Kenvil) Hazardous Drug - Reproductive Risk Only - See Handling Guide simethicone (MYLICON) chewable tablet 80 mg 80 mg, Oral, 4 Times Daily PRN, Flatulence, Starting on Thu11/25/24 at 0611 0914 (Given - Provider: Yessica Pizarro, TOOTIE)1522 (Given - Provider: Yessica Pizarro, TOOTIE) 0733 (Given - Provider: Shilpa Robles RN) Linked Groups Order Group 1: acetaminophen (TYLENOL) tablet 1,000 mg ()Jump to med 1,000 mg, Oral, Every 6 Hours, First dose on Thu11/25/24 at 1100, For 24 hours, Pharmacy to schedule 6 hours from pre-op dose. Based on patient request - if ordered [...] = Pain Score of 7-10, CPOT 5-8 Followed by acetaminophen (TYLENOL) tablet 650 mgJump to med 650 mg, Oral, Every 6 Hours, First dose on Thu11/26/24 at 1100, Based on patient request - if ordered [...] = Pain Score of 7-10, CPOT 5-8 Group 2: ketorolac (TORADOL) injection 15 mg (COMPLETED)Jump to med 15 mg, Intravenous, Every 6 Hours, First dose on Thu11/25/24 at 0800, For 24 hours, Pharmacy to schedule 6 hours from PACU dose. ([facility]) If given for pain, use the following pain scale: Mild Pain = Pain Score of 1-3, CPOT 1-2 Moderate Pain = Pain Score of 4-6, CPOT 3-4 Severe Pain = Pain Score of 7-10, CPOT 5-8 Followed by ibuprofen (ADVIL,MOTRIN) tablet 600 mgJump to med 600 mg, Oral, Every 6 Hours, First dose on 11/26/24 at 0800, Based on patient request - if ordered for moderate or severe pain, provider allows for administration of a medication prescribed for a lower pain scale. Mucous membrane irritant. Do not crush or chew tablet or capsule unless administered through a feeding tube. If given for pain, use the following pain scale: Mild Pain = Pain Score of 1-3, CPOT 1-2 Moderate Pain = Pain Score of 4-6, CPOT 3-4 Severe Pain = Pain Score of 7-10, CPOT 5-8 Group 3: aluminum-magnesium hydroxide-simethicone (MAALOX MAX) 400-400-40 MG/5ML suspension 15 mLJump to med 15 mL, Oral, Every 4 Hours PRN, Indigestion, Starting on Thu11/25/24 at 0611, Maximum 60 mL in 24 hours. Or calcium carbonate (TUMS) chewable tablet 500 mg (200 mg elemental)Jump to med 1 tablet, Oral, Every 4 Hours PRN, Indigestion, Heartburn, Starting on Thu11/25/24 at 0611, One tablet contains 200 mg elemental calcium. Take with food. Group 4: oxyCODONE (ROXICODONE) immediate release tablet 5 mgJump to med 5 mg, Oral, Every 4 Hours PRN, Moderate Pain, Starting on Thu11/25/24 at 0611, For 5 days, Based on patient request - if ordered for moderate or severe pain, provider allows for administration of a medication prescribed for a lower pain scale. (RACHELLE) If given for pain, use the following pain scale: Mild Pain = Pain Score of 1-3, CPOT 1-2 Moderate Pain = Pain Score of 4-6, CPOT 3-4 Severe Pain = Pain Score of 7-10, CPOT 5-8 Or oxyCODONE (ROXICODONE) immediate release tablet 10 mgJump to med 10 mg, Oral, Every 4 Hours PRN, Severe Pain, Starting on Thu11/25/24 at 0611, For 5 days, Based on patient request - if ordered for moderate or severe pain, provider allows for administration of a medication prescribed for a lower pain scale. 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
--- OUTSIDE RECORDS SUMMARY | 2024-11-24 12:37 | XMS_ITS | Encounter Summary ---
[facility] Address [address] [place] [address] Care Team Providers Care Printing Bindery Assistant Name Role Phone Mio Suerosalia VICKERS Primary Care Provider Reason for Visit * Auth/Cert (Routine) Specialty Diagnoses / Procedures Referred By Contac t Referred To Contact Diagnoses Referral ID Status Reason Start Date Expiration Date Visits Re quested Visits Authorized [id number] 1 1 Encounter Details Date Type Department Care Team (Late st Contact Info) Description 11/24/2024 12:37 PM EDT Anesthesia Event LABOR DELIVERY [address] [place] [id number] Peggy Torres, DO [address] [place] [address] Geraldine Roberts, PECAN PICKER [address] [place] [address] Anesthesia Record Procedure Summary Procedure Name Responsible Anesthesiologist Anesthesia Start Time Anesthesia Stop Time SECTION PRIMARY (Abdomen) Peggy Torres DO 11/24/24 1237 11/25/24 0021 Events Date Time Event Comment 11/24/2024 1229 1237 An Start The patient was reevaluated immediately before moderate or deep sedation use and before anesthesia induction. 1237 Face Time 2240 Epidural to 2240 AN Equip Check 2300 Quick Note Pt for C/S for failure to progress. 2309 An Start Data 2332 Baby Delivered 11/25/2024 0000 Quick Note EPIC going down at [place]. 0013 an stop data 0021 Handoff to RN The following has been completed: 1. Identification of Patient, grove family member(s) or patient surrogate 2. Identification of the responsible Practitioner (primary service) 3. Discussion of the pertinent/attainable medical history 4. Discussion of the surgical/procedure course (procedure, reason for surgery, procedure performed) 5. Intraoperative anesthetic management and issue/concerns to include things such as airway, hemodynamics, narcotic, sedation level and paralytic management and intravenous fluids/blood products and urine output during the procedure 6. Expectations/Plans for the early post-procedure period to include things such as anticipated course (anticipatory guidance), complications, need for laboratory or ECG and medication administration 7. Opportunity for questions and acknowledgment of understanding of report from the receiving PACU/ICU team 0021 An Stop Meds Name Total lidocaine 1.5%-EPINEPHrine PF 1:200,000 (XYLOCAINE W/EPI) injection 3 mL fentaNYL (SUBLIMAZE) injection 200 mcg ropivacaine (NAROPIN) 0.5 % 5 mL in sodi um chloride 0.9 % 5 mL epidural 10 mL ropivacaine (NAROPIN) 0.2 % injection 13 7.9 mL methylergonovine (METHERGINE) injection 200 mcg oxytocin (PITOCIN) in sodium chloride 30 units/500 mL (premix) 1,000 mL oxytocin 10 UNIT/ML 10 Units ondansetron 2 mg/mL 4 mg Famotidine (PF) 20 MG/2ML 20 mg metoclopramide 5 MG/ML 10 mg Chloroprocaine HCl (PF) 3 % 5 mL lidocaine 2%-EPINEPHrine PF 1:200,000 (X YLOCAINE W/EPI) injection 10 mL midazolam 5 MG/5ML 2 mg morphine PF 0.5 MG/ML 3 mg azithromycin (ZITHROMAX) 500 mg in sodiu m chloride 0.9 % 250 mL IVPB-VTB 500 mg lactated ringers infusion 1,750 mL * Agents Name N2O Air * Blood No blood administrations on file. Lines, Drains, and Airways Type Details Placement Removal Wound 11/24/24; 2324; Y; lower; abdomen; Surgical 11/24/242324 by Jn Millan RN Peripheral IV Placement Date: 11/23/24; Placement Time: 2039; Catheter Size: 18 G; Orientation: Anterior, Right; Location: Forearm; Site Prep: Chlorhexidine; Local Anes: None; Technique: Anatomical landmarks; Inserted by: Danielle Millan RN; Insertion Attempts: 1; Patient Tolerance: Tolerated well; Removal Date: 11/24/24; Removal Time: 202911/23/242039 by Jn Millan RN 11/24/242029 by Jn Millan RN Epidural Placement Date: 11/24/24; Placement Time: 1303 (created via procedure documentation); Removal Date: 11/25/24; Removal Time: 21911/24/24 130 by Geraldine Roberts CRNA 11/25/24219 by Jn Millan RN Urethral Catheter Placement Date: 11/24/24; Placement Time: 1341; Inserted by: Omero Lam RN; Type: Silicone; Size: 16 Fr.; Balloon Size: 10 mL; Urine Returned: Yes; Removal Date: 11/25/24; Removal Time: 163011/24/24 134 by Heydi Lam RN 11/25/241630 by Yessica Pizarro RN Peripheral IV Placement Date: 11/24/24; Placement Time: 2051; Catheter Size: 18 G; Orientation: Left; Location: Antecubital; Site Prep: Chlorhexidine; Local Anes: None; Technique: Ultrasound guidance; Inserted by: Ruth SuarezVance); Insertion Attempts: 1; Patient Tolerance: Tolerated well; Removal Date: 11/26/24; Removal Time: 14911/24/242051 by Jn Millan RN 11/26/24149 by Mechelle Sierra RN documented in this encounter Social History Tobacco Use Types Packs/Day Years Used Date Smoking Tobacco: Never Passive Smoke Exposure: Never Smokeless Tobacco: Never Alcohol Use Standard Drinks/Week Comments Not Currently 2 (1 standard drink = 0.6 oz pur e alcohol) [facility] Utilities Answer Date Recorded In the past 12 months has [employer], gas, oil, or water [employer] threatened to shut off services in your [...] and heating? Not hard at all 11/23/2024 [facility] - Occupational Stress Questionnaire Answer Date Recorded [...] things needed for daily living? No 11/23/2024 [place] Depression Scale Answer Date Recorded [place] Depression Scale Total 6 11/25/2024 The thought [...] GED or equivalent No 11/23/2024 Preferred Language Citizen Of [place] 11/23/2024 PHQ-2 Answer Date Recorded Patient Health Questionnaire-2 Score 0 11/23/2024 Comments Yes Sex and Gender Information Value Date Recorded Sex Assigned at Female 10/01/2024 2:08 PM EDT Legal Sex Female 10:46 AM EDT Gender Identity Not on file Sexual Orientation Not on file documented as of this encounter OR Notes * Anesthesia Postprocedure Evaluation - Geraldine Roberts CRNA - 11/25/2024 3:01 PM EDT Patient: Penny Kebede Procedure Summary Date: 11/24/24 Room / Location: [facility] Anesthesia Start: 1237 Anesthesia Stop: 11/25/24 002 Procedure: SECTION PRIMARY (Abdomen) Diagnosis: Surgeons: Bhavya Carter MD Provider: Peggy Torres DO Anesthesia Type: epidural ASA Status: 3 Anesthesia Type: epidural Vitals Vitals Value Taken Time BP 117/65 11/25/24 01:50 Temp 99 ??F (37.2 ??C) 11/25/24 01:50 Pulse 70 11/25/24 01:50 Resp 14 11/25/24 01:50 SpO2 98 % 11/25/24 01:50 Post Anesthesia Care and Evaluation Patient location during evaluation: bedside Patient participation: complete - patient participated Level of consciousness: awake and alert Pain management: adequate Airway patency: patent Anesthetic complications: No anesthetic complications Cardiovascular status: acceptable Respiratory status: acceptable Hydration status: acceptable Post Neuraxial Block status: Motor and sensory function returned to baseline and No signs or symptoms of PDPH * Anesthesia Postprocedure Evaluation - Peggy Torres DO - 11/25/2024 3:59 AM EDT Patient: Penny Kebede Procedure Summary Date: 11/24/24 Room / Location: [facility] Anesthesia Start: 1237 Anesthesia Stop: Procedure: SECTION PRIMARY (Abdomen) Diagnosis: Surgeons: Bhavya Carter MD Provider: Peggy Torres DO Anesthesia Type: epidural ASA Status: 3 Anesthesia Type: epidural Vitals Vitals Value Taken Time BP 110/57 11/25/24 02:30 Temp 98.5 ??F (36.9 ??C) 11/25/24 02:30 Pulse 77 11/25/24 02:30 Resp 16 11/25/24 02:30 SpO2 100 % 11/24/24 13:27 Post Anesthesia Care and Evaluation Patient location during evaluation: bedside Patient participation: complete - patient participated Level of consciousness: awake and awake and alert Pain score: 0 Pain management: satisfactory to patient Airway patency: patent Anesthetic complications: No anesthetic complications PONV Status: none Cardiovascular status: acceptable, hemodynamically stable and stable Respiratory status: acceptable Hydration status: stable Post Neuraxial Block status: No signs or symptoms of PDPH Late note entry due to EPIC being down. VS upon PACU arrival: SAT 99% RR 16 BP 114/54 T 98.7 HR 89 * Anesthesia Procedure Notes - Geraldine Roberts CRNA - 11/24/2024 1:03 PM EDT Associated Order(s): Labor Epidural Labor Epidural Patient reassessed immediately prior to procedure Patient location during procedure: OB Performed By SABIHA/CAA: Geraldine Roberts CRNA Preanesthetic Checklist Completed: patient identified, IV checked, risks and benefits discussed, surgical consent, monitorsand equipment checked, pre-op evaluation and timeout performed Prep: Pt Position:sitting Butadiene Converter Operator:cap, gloves, mask and sterile barrier Prep:DuraPrep Monitoring:blood pressure monitoring Epidural Block Procedure: Approach:midline Guidance:palpation technique Location:L3-L4 Needle Type:Tuohy Needle Gauge:17 G Loss of Resistance Medium: saline Loss of Resistance: 9cm Cath Depth at skin:15 cm Paresthesia: none Aspiration:negative Test Dose:negative Number of Attempts: 1 Post Assessment: Dressing:occlusive dressing applied and secured with tape Pt Tolerance:patient tolerated the procedure well with no apparent complications Complications:no * Anesthesia Preprocedure Evaluation - Peggy Torres DO - 11/24/2024 12:28 PM EDT Anesthesia Evaluation Patient summary reviewed and Nursing notes reviewed history of anesthetic complications: PONV NPO Solid Status: > 2 hours NPO Liquid Status: > 2 hours Airway Mallampati: III TM distance: <3 FB Neck ROM: full Difficult intubation highly probable Dental Pulmonary (+) asthma,sleep apnea on CPAP Cardiovascular (+) hypertension Neuro/Psych- negative ROS GI/Hepatic/Renal/Endo (+) obesity, morbid obesity Musculoskeletal (-) negative ROS Abdominal (+) obese Substance History - negative use 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 CODE STATUS: Code Status (Patient has no pulse and is not breathing): CPR (Attempt to Resuscitate) Medical Interventions (Patient has pulse or is breathing): Full Support Level Of Support Discussed With: Patient documented in this encounter Plan of Treatment Upcoming Encounters Date Type Department Care Team (Late st Contact Info) Description 01/12/2025 2:00 PM EDT Visit [facility] OBGYN [address] [facility] [address] [place] [address] Sheldon Godoy, RESEARCH CENTER PARTNER [address] [facility] [address] [place], [place] [id number] 09/22/2025 2:45 PM EDT Office Visit [facility] SLEEP MEDICINE [address] [facility] [address] [place] [address] Dave Montaño, RESEARCH CENTER PARTNER [address] [place] [address] documented as of this encounter Procedures Procedure Name Priority Date/Time Associated Diagnosis Comments HC AN LABOR EPIDURAL KIT Routine 11/24/2024 1:03 PM EDT documented in this encounter Results * HC AN LABOR EPIDURAL KIT (11/24/2024 1:03 PM EDT) Narrative Geraldine Roberts CRNA - 11/24/2024 1:03 PM EDT Geraldine Roberts CRNA 11/24/2024 1:04 PM Labor Epidural Patient reassessed immediately prior to procedure Patient location during procedure: OB Performed By SABIHA/CAA: Geraldine Roberts CRNA Preanesthetic Checklist Completed: patient identified, IV checked, risks and benefits discussed, surgical consent, monitors and equipment checked, pre-op evaluation and timeout performed Prep: Pt Position:sitting Butadiene Converter Operator:cap, gloves, mask and sterile barrier Prep:DuraPrep Monitoring:blood pressure monitoring Epidural Block Procedure: Approach:midline Guidance:palpation technique Location:L3-L4 Needle Type:Tuohy Needle Gauge:17 G Loss of Resistance Medium: saline Loss of Resistance: 9cm Cath Depth at skin:15 cm Paresthesia: none Aspiration:negative Test Dose:negative Number of Attempts: 1 Post Assessment: Dressing:occlusive dressing applied and secured with tape Pt Tolerance:patient tolerated the procedure well with no apparent complications Complications:no Peggy Sultana Michael DO ANESTHESIA ORDERAB LES Final Result documented in this encounter Visit Diagnoses Not on filedocumented in this encounter Administered Medications Inactive Administered Medications - up to 3 most recent administrations Medication Order MAR Action Action Date Dose Rate Site azithromycin (ZITHROMAX) 500 mg in sodium chloride 0.9 % 250 mL IVPB-VTB 500 mg, Intravenous, Administer over 60 Minutes, Once, On Esha 11/24/24 at 2230, For 1 dose, Activate vial before use., Indications: Surgical ProphylaxisIndications:Surgical Prophylaxis Bolus 11/24/2024 11:16 PM EDT 500 mg New Bag 11/24/2024 10:48 PM EDT 500 mg Chloroprocaine HCl (PF) (NESACAINE) 3 % injection Epidural, As Needed, Starting on Esha 11/24/24 at 2317 Given 11/24/2024 11:17 PM EDT 5 mL Famotidine (PF) (PEPCID) injection Intravenous, As Needed, Starting on Esha 11/24/24 at 2312 Given 11/24/2024 11:12 PM EDT 20 mg fentaNYL citrate (PF) (SUBLIMAZE) injection Epidural, As Needed, Starting on Esha 11/24/24 at 1252 Given 11/24/2024 11:23 PM EDT 100 mcg Given 11/24/2024 12:52 PM EDT 100 mcg lactated ringers infusion 125 mL/hr, Intravenous, Continuous, Starting on Thu11/23/24 at 2115, For 12 days New Bag 11/24/2024 11:56 PM EDT New Bag 11/24/2024 11:09 PM EDT Restarted 11/24/2024 8:52 PM EDT 125 mL/hr 125 mL/hr Lidocaine-EPINEPHrine (PF) (XYLOCAINE W/EPI) 1.5 %-1:[id number] injection Epidural, As Needed, Starting on Esha 11/24/24 at 1250 Given 11/24/2024 12:50 PM EDT 3 mL Lidocaine-EPINEPHrine (PF) (XYLOCAINE W/EPI) 2 %-1:239802 injection Epidural, As Needed, Starting on Esha 11/24/24 at 2248 Given 11/24/2024 10:48 PM EDT 10 mL methylergonovine (METHERGINE) injection Intramuscular, As Needed, Starting on Esha 11/24/24 at 2346 Given 11/24/2024 11:46 PM EDT 200 mcg metoclopramide (REGLAN) injection Intravenous, As Needed, Starting on Esha 11/24/24 at 2321 Given 11/24/2024 11:21 PM EDT 10 mg midazolam (VERSED) injection Intravenous, As Needed, Starting on Esha 11/24/24 at 2312 Given 11/24/2024 11:44 PM EDT 1 mg Given 11/24/2024 11:12 PM EDT 1 mg morphine PF (DURAMORPH) injection Epidural, As Needed, Starting on Esha 11/24/24 at 2335 Given 11/24/2024 11:35 PM EDT 3 mg ondansetron (ZOFRAN) injection Intravenous, As Needed, Starting on Esha 11/24/24 at 2312 Given 11/24/2024 11:12 PM EDT 4 mg oxytocin (PITOCIN) 30 units in 0.9% sodium chloride 500 mL (premix) Intravenous, As Needed, Starting on Esha 11/24/24 at 2334 Given 11/24/2024 11:34 PM EDT 1,000 mL oxytocin (PITOCIN) injection Intravenous, As Needed, Starting on Esha 11/24/24 at 2334 Given 11/24/2024 11:57 PM EDT 2 Units Given 11/24/2024 11:48 PM EDT 2 Units Given 11/24/2024 11:42 PM EDT 3 Units ropivacaine (NAROPIN) 0.2 % injection 14 mL/hr, Epidural, Continuous, Starting on Esha 11/24/24 at 1315, Anesthesiologist to adjust rate as needed. RN may replace epidural infusion fluids as ordered. New Bag 11/24/2024 12:57 PM EDT 14 mL/hr 14 mL/hr ropivacaine (NAROPIN) 0.5 % 5 mL in sodium chloride 0.9 % 5 mL epidural Epidural, Continuous PRN, Starting on Esha 11/24/24 at 1254 New Bag 11/24/2024 12:54 PM EDT 10 mL documented in this encounter Care Teams Printing Bindery Assistant Relationship Specialty Start Date End Date Sue Lieberman APRN [address] [place] [address] JASMYNE WATTS [address] PCP - General Internal Medicine 03/09/24 documented as of this encounter
--- OUTSIDE RECORDS SUMMARY | 2024-11-24 22:25 | XMS_ITS | Encounter Summary ---
Author Organization [facility] Address [address] [place] [address] Care Team Providers Care Produce Shipper Name Role Phone Sue Lieberman APRN Primary Care Provider Reason for Visit * Reason Comments Scheduled Induction * Auth/Cert (Routine) Specialty Diagnoses / Procedures Referred By Contac t Referred To Contact Diagnoses Referral ID Status Reason Start Date Expiration Date Visits Re quested Visits Authorized [id number] 1 1 Encounter Details Date Type Department Care Team (Late st Contact Info) Description 11/24/2024 10:25 PM EDT - 11/24/2024 11:59 PM EDT Surgery [facility] [address] [place] [id number] Bhavya Carter MD [address] [facility] [address] [place] [address] SECTION PRIMARY Social History Tobacco Use Types Packs/Day Years Used Date Smoking Tobacco: Never Passive Smoke Exposure: Never Smokeless Tobacco: Never Tobacco Cessation:Counseling Given: No Alcohol Use Standard Drinks/Week Comments Not Currently 2 (1 standard drink = 0.6 oz pur e alcohol) [facility] Utilities Answer Date Recorded In the [...] and heating? Not hard at all 11/23/2024 [facility] - Occupational Stress Questionnaire Answer Date Recorded [...] things needed for daily living? No 11/23/2024 [place] Depression Scale Answer Date Recorded [place] Depression Scale Total 6 11/25/2024 The thought [...] GED or equivalent No 11/23/2024 Preferred Language East Timorese 11/23/2024 PHQ-2 Answer Date Recorded Patient Health [...] 11/23/2024 9:02 PM Jn Bartlett RN * [place] Suicide Severity Rating Scale (Screener/Recent Self-Report) Question [...] Date of Discharge: 11/28/2024 Patient: Penny Kebede MR#:[id number] Primary Surgeon/OB: Bhavya Carter MD Discharge Surgeon/OB:same [...] problems / concerns. As directed Call with lennox smelling discharge, fever of >100.4, signs of [...] to your nextappointment. Discharge Follow-up with Specialty: INFORMATICA MDM DEVELOPER/Raul; 1 Week As directed Specialty: INFORMATICA MDM DEVELOPER/Raul Follow Up: 1 Week Follow Up Details: [...] 11/27/2024 9:08 AM EDT 11/27/2024 Name:Penny Kebede MR#:[id number] PROGRESS NOTE: Post-Op 3 S/P HD:4 Subjective [...] 11/26/2024 8:54 AM EDT 11/26/2024 Name:Penny Kebede MR#:[id number] PROGRESS NOTE: Post-Op 2 S/P HD:3 Subjective [...] 11/25/2024 7:24 AM EDT 11/25/2024 Name:Penny Kebede MR#:[id number] PROGRESS NOTE: Post-Op 1 S/P HD:2 Subjective [...] Carter MD - 11/24/2024 9:00 AM EDT /1 AROM CLear NST RX documented in this encounter H&P Notes * Bhavya Carter MD - 11/23/2024 9:00 PM EDT Images from the original note were not included. History and Physical [facility] Chief Complaint Patient presents with Scheduled [...] hepato-splenomegaly FHT's: reactive and category 1 Cervix: [place]: Contraction are irregular Lab Review Labs: No data reviewed Lab Results (last 24 hours) Procedure Component Value Units Date/Time Protein / Creatinine Ratio, Urine - Urine, Clean Catch [[id number]] Collected: 11/23/24 2315 Specimen: Urine, Clean Catch Updated: 11/24/24926 Protein/Creatinine Ratio, Urine 102.9 mg/G Crea Creatinine, Urine 128.3 mg/dL Total Protein, Urine 13.2 mg/dL Treponema pallidum AB w/Reflex RPR [[id number]] (Normal) Collected: 11/23/242047 Specimen: Blood Updated: 11/24/24 025 Treponemal AB Total Non-Reactive Narrative: Reactive results will reflex RPR testing. Lactate Dehydrogenase [[id number]] (Abnormal) Collected: 11/23/242047 Specimen: Blood Updated: 11/23/242205 LDH 242 U/L Comment: Specimen hemolyzed. Results may be affected. Uric Acid [[id number]] (Normal) Collected: 11/23/242047 Specimen: Blood Updated: 11/23/242205 Uric Acid 5.1 mg/dL Comment: Falsely depressed results may occur on samples drawn from patients receiving N-Acetylcysteine (NAC) or Metamizole. Comprehensive Metabolic Panel [[id number]] (Abnormal) Collected: 11/23/242047 Specimen: Blood Updated: 11/23/242205 [...] race as a factor CBC (No Diff) [[id number]] (Normal) Collected: 11/23/242047 Specimen: Blood Updated: 11/23/242143 [...] FHT's class 1. Patient tolerated well. 24 slovenian,60ml. Adithya Nelson MD 11/23/2024 21:45 EDT documented in this encounter Nursing Notes * Esdras Sargent RN - 11/28/2024 12:59 PM EDT Goal Outcome Evaluation: D/C home today. Following up with Dr. Carter per her instructions Pt providing self care independently. * Alicia Salas RN - 11/28/2024 8:20 AM EDT 11/28/24 0820 Maternal Information Date of Referral 11/28/24 Person Making Referral oracle ebs consultant (courtesy prior to discharge) Maternal Reason for Referral other (see comments) (mother reporting well with pumping; getting drops, encouraged normal for early days, but to continue pumping every three hours around the clock for optimal milk supply; inquired about pump for preemie; encouraged discussing with RUSSIAN LANGUAGE INSTRUCTOR.) No other needs/concerns. To call PRN. * Kimberly Nicolas RN - 11/25/2024 6:08 PM EDT 11/25/24 1808 Maternal Information Date of Referral 11/25/24 Person Making Referral oracle ebs consultant Maternal Reason for Referral separation from infant Reason for Referral separation from mother Milk [...] Returned to pt. Room to complete education. was initially coming down, but now admitted [...] Date of Referral 11/25/24 Person Making Referral oracle ebs consultant Maternal Reason for Referral no prior experience Infant Reason for Referral 35-37 weeks gestation; ;other [...] of infant who has been in NICU. has just came down [facility] nursery. Mom laying in chair when [...] EDT Goal Outcome Evaluation: NOREEN ESPINOZA, anjel @28, SVE 570/-2 documented in this encounter OR Notes * Op Note - Bhavya Carter MD - 11/24/2024 11:25 PM EDT Section Procedure Note Indications: Arrest of dilation Pre-operative Diagnosis: 1: 37w1d 2. Obesity Antepartum mild preeclampsia Elevated liver enzymes delivery delivered care and examination immediately after delivery Post-operative Diagnosis: 1: Same. . Procedures: Procedure(s): SECTION PRIMARYLTUI Surgeon: Bhavya Carter MD Chopper Feeder: Anesthesia: Choice Estimated Blood Loss: 800 cc [...] Info) Description 01/12/2025 2:00 PM EDT Visit [facility] OBGYN [address] [facility] [address] [place] [address] Sheldon Godoy, SUPERVISOR ACCOUNTING CLERKS [address] [facility] [address] [place] [address] 09/22/2025 2:45 PM EDT Office Visit [facility] SLEEP MEDICINE [address] [facility] [address] [place] [address] Dave Montaño, SUPERVISOR ACCOUNTING CLERKS [address] [place] [address] documented as of this encounter Procedures Procedure [...] CBC Auto Differential (11/28/2024 6:22 AM EDT) [facility] WBC 4.72 3.40 - 10.80 10*3/mm3 11/28/2024 7:38 AM EDT [facility] RBC 3.12(L) 3.77 - 5.28 10*6/mm3 [facility] Hemoglobin 8.9(L) 12.0 - 15.9 g/dL 11/28/2024 7:38 AM EDT [facility] Hematocrit 28.7(L) 34.0 - 46.6 % 11/28/2024 7:38 [facility] MCV 92.0 79.0 - 97.0 fL 11/28/2024 7:38 AM EDT [facility] MCH 28.5 26.6 - 33.0 pg 11/28/2024 7:38 [facility] MCHC 31.0(L) 31.5 - 35.7 g/dL 11/28/2024 7:38 AM [facility] RDW 15.0 12.3 - 15.4 % 11/28/2024 7:38 AM [facility] RDW-SD 50.3 37.0 - 54.0 fl 11/28/2024 7:38 AM [facility] MPV 10.6 6.0 - 12.0 fL 11/28/2024 7:38 AM [facility] Platelets 192 140 - 450 10*3/mm3 11/28/2024 7:38 [facility] Neutrophil % 53.0 42.7 - 76.0 % 11/28/2024 7:38 AM [facility] Lymphocyte % 30.9 19.6 - 45.3 % 11/28/2024 7:38 [facility] Monocyte % 12.1(H) 5.0 - 12.0 % 11/28/2024 7:38 [facility] Eosinophil % 3.4 0.3 - 6.2 % 11/28/2024 7:38 [facility] Basophil % 0.4 0.0 - 1.5 % 11/28/2024 7:38 [facility] Immature Grans % 0.2 0.0 - 0.5 % 11/28/2024 7:38 AM EDT [facility] Neutrophils, Absolute 2.50 1.70 - 7.00 10*3/mm3 11/28/2024 7:38 AM EDT [facility] Lymphocytes, Absolute 1.46 0.70 - 3.10 10*3/mm3 11/28/2024 7:38 AM EDT [facility] Monocytes, Absolute 0.57 0.10 - 0.90 10*3/mm3 11/28/2024 7:38 AM EDT [facility] Eosinophils, Absolute 0.16 0.00 - 0.40 10*3/mm3 11/28/2024 7:38 AM EDT [facility] Basophils, Absolute 0.02 0.00 - 0.20 10*3/mm3 11/28/2024 7:38 AM EDT [facility] Immature Grans, Absolute 0.01 0.00 - 0.05 10*3/mm3 11/28/2024 7:38 AM EDT [facility] nRBC 0.0 0.0 - 0.2 /100 WBC 11/28/2024 7:38 AM EDT [facility] Blood Venipuncture / Unknown 11/28/2024 6:22 AM EDT 11/28/2024 7:12 AM EDT us Radha De Souza SUPERVISOR ACCOUNTING CLERKS LAB BLOOD ORDERABLES Final Re sult [facility]
[address] [place] [address], * (ABNORMAL) Preeclampsia Panel (11/26/2024 1:37 PM EDT) Alkaline Phosphatase 107 39 - 117 U/L 11/26/2024 2:04 PM EDT [facility] ALT (SGPT) 48(H) 1 - 33 U/L 11/26/2024 2:04 PM EDT [facility] AST (SGOT) 23 1 - 32 U/L 11/26/2024 2:04 PM EDT [facility] Creatinine 0.61 0.57 - 1.00 mg/dL 11/26/2024 2:04 PM EDT [facility] Total Bilirubin 0.2 0.0 - 1.2 mg/dL 11/26/2024 2:04 PM EDT [facility] LDH 237(H) 135 - 214 U/L 11/26/2024 2:04 PM EDT [facility] Comment:Specimen hemolyzed. Results may be affected. Uric Acid 6.3(H) 2.4 - 5.7 mg/dL 11/26/2024 2:04 PM EDT [facility] Blood Venipuncture / Unknown 11/26/2024 1:37 PM EDT 11/26/2024 1:44 PM EDT us Radha De Souza SUPERVISOR ACCOUNTING CLERKS LAB BLOOD ORDERABLES Final Re sult [facility]
[address] [place] [address], * (ABNORMAL) CBC Auto Differential (11/26/2024 4:45 AM EDT) WBC 11.39(H) 3.40 - 10.80 10*3/mm3 11/26/2024 5:41 AM EDT [facility] RBC 3.17(L) 3.77 - 5.28 10*6/mm3 11/26/2024 5:41 AM EDT [facility] Hemoglobin 9.1(L) 12.0 - 15.9 g/dL 11/26/2024 5:41 AM EDT [facility] Hematocrit 28.8(L) 34.0 - 46.6 % 11/26/2024 5:41 AM EDT [facility] MCV 90.9 79.0 - 97.0 fL 11/26/2024 5:41 AM EDT [facility] MCH 28.7 26.6 - 33.0 pg 11/26/2024 5:41 AM [facility] MCHC 31.6 31.5 - 35.7 g/dL 11/26/2024 5:41 AM [facility] RDW 14.5 12.3 - 15.4 % 11/26/2024 5:41 AM [facility] RDW-SD 48.3 37.0 - 54.0 fl 11/26/2024 5:41 AM [facility] MPV 11.5 6.0 - 12.0 fL 11/26/2024 5:41 AM [facility] Platelets 133(L) 140 - 450 10*3/mm3 11/26/2024 5:41 AM [facility] Neutrophil % 76.4(H) 42.7 - 76.0 % 11/26/2024 5:41 AM [facility] Lymphocyte % 14.3(L) 19.6 - 45.3 % 11/26/2024 5:41 AM [facility] Monocyte % 8.3 5.0 - 12.0 % 11/26/2024 5:41 AM [facility] Eosinophil % 0.4 0.3 - 6.2 % 11/26/2024 5:41 AM [facility] Basophil % 0.2 0.0 - 1.5 % 11/26/2024 5:41 AM [facility] Immature Grans % 0.4 0.0 - 0.5 % 11/26/2024 5:41 AM [facility] Neutrophils, Absolute 8.70(H) 1.70 - 7.00 10*3/mm3 11/26/2024 5:41 AM [facility] Lymphocytes, Absolute 1.63 0.70 - 3.10 10*3/mm3 11/26/2024 5:41 AM [facility] Monocytes, Absolute 0.95(H) 0.10 - 0.90 10*3/mm3 11/26/2024 5:41 AM [facility] Eosinophils, Absolute 0.05 0.00 - 0.40 10*3/mm3 11/26/2024 5:41 AM EDT [facility] Basophils, Absolute 0.02 0.00 - 0.20 10*3/mm3 11/26/2024 5:41 AM EDT [facility] Immature Grans, Absolute 0.04 0.00 - 0.05 10*3/mm3 11/26/2024 5:41 AM EDT [facility] nRBC 0.0 0.0 - 0.2 /100 WBC 11/26/2024 5:41 AM EDT [facility] Blood Venipuncture / Unknown 11/26/2024 4:45 AM EDT 11/26/2024 5:28 AM EDT us Kaylene Brown MD LAB BLOOD ORDERABLES Final Resu lt [facility]
[address] [place] [address], * (ABNORMAL) Blood Gas, Venous, Cord (11/24/2024 11:54 PM EDT) Site Umbilical 11/25/2024 12:01 AM EDT [facility] THERAPY pH, Cord Venous 7.313 7.310 - 7.370 pH Units 11/25/2024 12:01 AM EDT [facility] THERAPY pCO2, Cord Venous 49.9(H) 28.0 - 40.0 mm Hg 11/25/2024 12:01 AM EDT [facility] THERAPY pO2, Cord Venous 18.8(L) 21.0 - 31.0 mm Hg 11/25/2024 12:01 AM EDT [facility] THERAPY HCO3, Cord Venous 25.3(H) 18.6 - 21.4 mmol/L 11/25/2024 12:01 AM EDT [facility] THERAPY Base Excess, Cord Venous -1.6(L) 0.0 - 2.0 mmol/L 11/25/2024 12:01 AM EDT [facility] THERAPY O2 Sat, Cord Venous 39.4 % 11/25/2024 12:01 AM EDT [facility] THERAPY Hemoglobin, Blood Gas 15.1 14 - 18 g/dL 11/25/2024 12:01 AM EDT [facility] THERAPY CO2 Content 26.8 22 - 33 mmol/L 11/25/2024 12:01 AM EDT [facility] THERAPY Temperature 37.0 11/25/2024 12:01 AM EDT [facility] THERAPY Barometric Pressure for Blood Gas 11/25/2024 12:01 AM EDT [facility] THERAPY Comment:N/A Modality Room Air 11/25/2024 12:01 AM EDT [facility] THERAPY FIO2 21 % 11/25/2024 12:01 AM EDT [facility] THERAPY Ventilator Mode 12:01 AM EDT [facility] THERAPY Rate 0 Breaths/m inute 11/25/2024 12:01 AM EDT [facility] THERAPY PIP 0 cmH2O 11/25/2024 12:01 AM EDT [facility] THERAP[facility] Comment:Meter: [id number] Knot Tier: [id number] IPAP 0 11/25/2024 12:01 AM EDT [facility] THERAPY EPAP 0 11/25/2024 12:01 AM EDT [facility] THERAPY O2 Saturation Calculated 11/25/2024 12:01 AM EDT [facility] Comment:Calculated O2 satura tion result not reported at this site. Cord Blood Venous Umbilical cord structure / Unknown 11/24/2024 11:54 PM EDT 11/24/2024 11:54 PM EDT us Bhavya Carter MD LAB BLOOD ORDERABLES Final Resu lt [facility] THERAPY
[address] [place] [address], * (ABNORMAL) Blood Gas, Arterial, Cord (11/24/2024 11:53 PM EDT) Site Umbilical 11/25/2024 12:00 AM EDT [facility] THERAPY pH, Cord Arterial 7.27 7.22 - 7.30 pH Units 11/25/2024 12:00 AM EDT [facility] THERAPY pCO2, Cord Arterial 56.9(H) 43.3 - 54.9 mmHg 11/25/2024 12:00 AM EDT [facility] THERAPY pO2, Cord Arterial 13.6 11.5 - 43.3 mmHg 11/25/2024 12:00 AM EDT [facility] THERAPY HCO3, Cord Arterial 25.9(H) 16.9 - 20.5 mmol/L 11/25/2024 12:00 AM EDT [facility] THERAPY Base Exc, Cord Arterial -2.3(L) 0.0 - 2.0 mmol/L 11/25/2024 12:00 AM EDT [facility] THERAPY O2 Sat, Cord Arterial 19.8 % 11/25/2024 12:00 AM EDT [facility] THERAPY Hemoglobin, Blood Gas 15.6 14 - 18 g/dL 11/25/2024 12:00 AM T [facility] THERAPY CO2 Content 27.6 22 - 33 mmol/L 11/25/2024 12:00 AM T [facility] THERAP[facility] Temperature 37.0 11/25/2024 12:00 AM T [facility] THERAPY Barometric Pressure for Blood Gas 11/25/2024 12:00 AM EDT [facility] THERAPY Comment:N/A Modality Room Air 11/25/2024 12:00 AM [facility] THERAPY FIO2 21 % 11/25/2024 12:00 AM [facility] THERAPY Rate 0 Breaths/m inute 11/25/[facility]24 [facility] PIP 0 cmH2O 11/25/2024 12:00 AM [facility] THERAPY Comment:Meter: [id number] Knot Tier: [id number] IPAP 0 11/25/2024 12:00 AM EDT [facility] THERAPY EPAP 0 11/25/2024 12:00 AM EDT [facility] THERAPY Note 0 11/25/2024 12:00 AM EDT [facility] THERAP[facility] Cord Blood Arterial Umbilical cord structure / Unknown 11/24/2024 11:53 PM EDT 11/24/2024 11:53 PM EDT Bhavya Carter MD LAB BLOOD ORDERABLES Final Resu lt [facility] THERAPY
[address] [place] [address], * Protein / Creatinine Ratio, Urine - Urine, Clean Catch (11/23/2024 11:15 PM EDT) Protein/Creati nine Ratio, Urine 102.9 0.0 - 200.0 mg/G Crea 11/24/2024 9:27 AM EDT [facility] Creatinine, Urine 128.3 mg/dL 11/24/2024 9:27 AM EDT [facility] Total Protein, Urine 13.2 mg/dL 11/24/2024 9:27 AM EDT [facility] Urine Urine specimen obtained by clean catch procedure / Unknown Collection / Unknown 11/23/2024 11:15 PM EDT 11/23/2024 11:45 PM EDT Bhavya Carter MD URINE ORDERABLES Final Result [facility]
[address] [place] [address], * Clements Bulb Cervical Ripening Without Infusion (11/23/2024 9:43 PM EDT) Narrative Adithya Nelson MD - 11/23/2024 9:43 PM EDT Adithya Nelson MD 11/23/2024 9:45 PM Transcervical Clements placed per physician request. T's class 1. Patient tolerated well. 24 slovenian, 60ml. Adithya Nelson MD 11/23/2024 21:45 EDT Bhavya Carter MD OB GYNE ORDERABLES Final Result * (ABNORMAL) Comprehensive Metabolic Panel (11/23/2024 8:48 PM EDT) Glucose 116(H) 65 - 99 mg/dL 11/23/2024 10:06 PM EDT [facility] BUN 7.0 6.0 - 20.0 mg/dL 11/23/2024 10:06 PM EDT [facility] Creatinine 0.50(L) 0.57 - 1.00 mg/dL 11/23/2024 10:06 PM EDT [facility] Sodium 137 136 - 145 mmol/L 11/23/2024 10:06 PM EDT [facility] Potassium 4.0 3.5 - 5.2 mmol/L 11/23/2024 10:06 PM EDT [facility] Chloride 107 98 - 107 mmol/L 11/23/2024 10:06 PM EDT [facility] CO2 19.1(L) 22.0 - 29.0 mmol/L 11/23/2024 10:06 PM EDT [facility] Calcium 8.9 8.6 - 10.5 mg/dL 11/23/2024 10:06 PM EDT [facility] Total Protein 5.9(L) 6.0 - 8.5 g/dL 11/23/2024 10:06 PM EDT [facility] Albumin 3.4(L) 3.5 - 5.2 g/dL 11/23/2024 10:06 PM EDT [facility] ALT (SGPT) 90(H) 1 - 33 U/L 11/23/2024 10:06 PM EDT [facility] AST (SGOT) 52(H) 1 - 32 U/L 11/23/2024 10:06 PM EDT [facility] Alkaline Phosphatase 129(H) 39 - 117 U/L 11/23/2024 10:06 PM EDT [facility] Total Bilirubin 0.3 0.0 - 1.2 mg/dL 11/23/2024 10:06 PM EDT [facility] Globulin 2.5 gm/dL 11/23/2024 10:06 PM EDT [facility] Comment:Calculated Result A/G Ratio 1.4 g/dL 11/23/2024 10:06 PM EDT [facility] BUN/Creatinine Ratio 14.0 7.0 - 25.0 11/23/2024 10:06 PM EDT [facility] Anion Gap 10.9 5.0 - 15.0 mmol/L 11/23/2024 10:06 PM EDT [facility] eGFR 133.7 >60.0 mL/min/1.7 3 11/23/2024 10:06 PM EDT [facility] Blood Venipuncture / Unknown 11/23/2024 8:48 PM EDT 11/23/2024 9:26 PM EDT [facility] - 11/23/2024 10:06 PM EDT [...] MD LAB BLOOD ORDERABLES Final Resu lt [facility]
[address] [place] [address], * Uric Acid (11/23/2024 8:48 PM EDT) Uric Acid 5.1 2.4 - 5.7 mg/dL 11/23/2024 10:06 PM EDT [facility] Comment:Falsely depressed re sults may occur on samples drawn from patients receiving N-Acetylcysteine (NAC) or Metamizole. Blood Venipuncture / Unknown 11/23/2024 8:48 PM EDT 11/23/2024 9:26 PM EDT us Bhavya Carter MD LAB BLOOD ORDERABLES Final Resu lt Performing Organization Address [facility] Co de Phone Number [facility]
[address] [place] [address], [place] [phone] * (ABNORMAL) Lactate Dehydrogenase (11/23/2024 8:48 PM EDT) LDH 242(H) 135 - 214 U/L 11/23/2024 10:06 PM EDT [facility] Comment:Specimen hemolyzed. Results may be affected. Blood Venipuncture / Unknown 11/23/2024 8:48 PM EDT 11/23/2024 9:26 PM EDT Bhavya Carter MD LAB BLOOD ORDERABLES Final Resu lt Performing Organization Address [facility] Co de Phone Number [facility]
[address] [place] [address], [place] [phone] * Type & Screen (11/23/2024 8:48 PM EDT) ABO Type O 11/23/2024 10:02 PM EDT [facility] RH type Positive 11/23/2024 10:02 PM EDT [facility] Antibody Screen Negative 11/23/2024 10:02 PM EDT [facility] T&S Expiration Date 11/26/2024 11:59:59 PM 11/23/2024 10:02 PM EDT [facility] Blood Venipuncture / Unknown 11/23/2024 8:48 PM EDT 11/23/2024 9:26 PM EDT Bhavya Carter MD BLOOD BANK TEST ORDERABLES Edit ed Result - Final [facility]
[address] [place] [address], [place] [phone] * Treponema pallidum AB w/Reflex RPR (11/23/2024 8:48 PM EDT) Treponemal AB Total Non-Reacti ve Non-React noemi 11/24/2024 2:54 AM EDT [facility] Blood Venipuncture / Unknown 11/23/2024 8:48 PM EDT 11/23/2024 9:27 PM EDT Narrative [facility] - 11/24/2024 2:54 AM EDT Reactive results will reflex RPR testing. Bhavya Carter MD LAB BLOOD ORDERABLES Final Resu lt [facility]
[address] [place] [address], [place] [phone] * CBC (No Diff) (11/23/2024 8:48 PM EDT) WBC 9.65 3.40 - 10.80 10*3/mm3 11/23/2024 9:44 PM EDT [facility] RBC 4.22 3.77 - 5.28 10*6/mm3 11/23/2024 9:44 PM EDT [facility] Hemoglobin 12.1 12.0 - 15.9 g/dL 11/23/2024 9:44 PM EDT [facility] Hematocrit 37.0 34.0 - 46.6 % 11/23/2024 9:44 PM EDT [facility] MCV 87.7 79.0 - 97.0 fL 11/23/2024 9:44 PM EDT [facility] MCH 28.7 26.6 - 33.0 pg 11/23/2024 9:44 PM EDT [facility] MCHC 32.7 31.5 - 35.7 g/dL 11/23/2024 9:44 PM EDT [facility] RDW 14.3 12.3 - 15.4 % 11/23/2024 9:44 PM EDT [facility] RDW-SD 45.6 37.0 - 54.0 fl 11/23/2024 9:44 PM EDT [facility] MPV 11.6 6.0 - 12.0 fL 11/23/2024 9:44 PM EDT [facility] Platelets 202 140 - 450 10*3/mm3 11/23/2024 9:44 PM EDT [facility] Blood Venipuncture / Unknown 11/23/2024 8:48 PM EDT 11/23/2024 9:26 PM EDT us Bhavya Carter MD LAB BLOOD ORDERABLES Final Resu lt [facility]
[address] [place] [address], documented in this encounter Visit Diagnoses Not [...] RN)[phone] (Given - Provider: Penny Ruiz RN Testing Tech) amitriptyline (ELAVIL) tablet 50 mg 50 mg, [...] massage site after injection., Indications: VTE Prophylaxis 912 (Given - Provider: Yessica Pizarro RN)220 (Given - Provider: Heydi Armando RN) 0734 (Given - Provider: Shilpa Robles RN)0900 (Due - Provider: Roxanne Lyman, JoshD)2030 (Given - Provider: Betsy Dorsey RN) 08 (Given - Provider: Penny Ruiz RN Testing Tech) ibuprofen (ADVIL,MOTRIN) tablet 600 mg(Linked Group 2) [...] Heydi Armando RN) 0235 (Given - Provider: Hedyi Armando RN)0733 (Given - Provider: Shilpa Robles RN)1301 (Given - Provider: Shilpa Robles RN)2030 (Given - Provider: Betsy Dorsey RN) 0150 (Given - Provider: Betsy Dorsey RN)0823 (Given - Provider: Penny Ruiz RN Testing Tech)1400 (Due) ketorolac (TORADOL) injection 15 mg (COMPLETED)(Linked Group 2) 15 mg, Intravenous, Every 6 Hours, First dose on Thu11/25/24 at 0800, For 24 hours, Pharmacy to schedule 6 hours from PACU dose. ([facility]) If given for pain, use the following [...] 0823 (Given - Provider: Penny Ruiz RN Testing Tech) vitamin tablet 1 tablet 1 tablet, Oral, Daily, First dose on Thu11/25/24 at 0900 0913 (Given - Provider: Yessica Pizarro RN) 0733 (Given - Provider: Shilpa Robles RN)0900 (Due) 0823 (Given - Provider: Penny Ruiz RN Testing Tech) PRN Medication Order 11/26/2024 11/27/2024 11/28/2024 aluminum-magnesium [...] at 0611, For 1 dose, Group 2 (Vayas) Hazardous Drug - Reproductive Risk Only - See Handling Guide metoclopramide (REGLAN) tablet 10 mg 10 mg, Oral, As Needed, Vomiting, Heartburn, Starting on Thu11/25/24 at 0611, (SPC) miSOPROStol (CYTOTEC) tablet 600 mcg 600 mcg, Oral, As Needed, Bleeding, Starting on Thu11/25/24 at 0611, Group 2 (Vayas) Hazardous Drug - Reproductive Risk Only - [...] 0822 (Given - Provider: Penny Ruiz RN Testing Tech) oxyCODONE (ROXICODONE) immediate release tablet 5 mg(Linked [...] Given: See Alt - Provider: Heydi Armando RN)2220 (Not Given: See Alt - Provider: Betsy Dorsey RN) 0822 (Not Given: See Alt - Provider: Penny Ruiz RN Testing Tech) oxytocin (PITOCIN) 30 units in 0.9% sodium chloride 500 mL (premix) 125 mL/hr, Intravenous, Once As Needed, PRN Bleeding for 1 Bag, Starting on Thu11/25/24 at 0611, For 1 dose, Consider 2nd agent prophylactically. Only order if patient is at high risk of bleeding and will need an additional bag (2 total). Group 2 (Vayas) Hazardous Drug - Reproductive Risk Only - [...] 5-8 documented in this encounter Care Teams Produce Shipper Relationship Specialty Start Date End Date Sue Lieberman APRN [address] [place] [address] JASMYNE WATTS [id number] PCP - General Internal Medicine 03/09/24 documented as of this encounter
--- OUTSIDE RECORDS SUMMARY | 2024-12-01 15:15 | XMS_ITS | Encounter Summary ---
Author Organization [facility] Address [address] [place] [address] Care Team Providers Care Food Services Coordinator Name Role Phone Sue Lieberman APRN Primary Care Provider Reason for Visit * Reason Comments Care Encounter Details Date Type Department Care Team (Late st Contact Info) Description 12/01/2024 3:15 PM EDT Visit [facility] OBGYN [address] [place], [place] [phone] Sheldon Godoy APRN [address] [place] [address] [place] [address] anxiety (Primary Dx); follow-up; BP check; Encounter for post surgical wound check Social History Tobacco Use Types Packs/Day Years Used Date Smoking Tobacco: Never Passive Smoke Exposure: Never Smokeless Tobacco: Never Alcohol Use Standard Drinks/Week Comments Not Currently 2 (1 standard drink = 0.6 oz pur e alcohol) [facility] Utilities Answer Date Recorded In the past 12 months has [employer] electric, gas, oil, or water company threatened [...] and heating? Not hard at all 11/23/2024 [facility] [place] of Occupat ional Health - Occupational Stress [...] things needed for daily living? No 11/23/2024 [place] Depression Scale Answer Date Recorded [place] Depression Scale Total 17 12/01/2024 The thought of harming myself has occurred to me . Never 12/01/2024 Abuse Screen Answer Date Recorded Feels Unsafe [...] GED or equivalent No 11/23/2024 Preferred Language Australian 11/23/2024 PHQ-2 Answer Date Recorded Patient Health Questionnaire-2 Score 0 11/23/2024 Comments No Sex and Gender Information Value Date Recorded Sex Assigned at Female 10/01/2024 2:08 PM EDT Legal Sex Female 10:46 AM EDT Gender Identity Not on file Sexual Orientation Not on file documented as of this encounter Last Filed Vital Signs Vital Sign Reading Time Taken Comments Blood Pressure 138/86 12/01/2024 3:38 PM EDT Pulse - - Temperature - - Respiratory Rate - - Oxygen Saturation - - Inhaled Oxygen Concentration - - Weight 130 kg (287 lb) 12/01/2024 3:38 PM EDT Height 160 cm (5' 3 ) 12/01/2024 3:38 PM EDT Body Mass Index 50.84 12/01/2024 3:38 PM EDT documented in this encounter Progress Notes * Sheldon Godoy, ALEE - 12/01/2024 3:15 PM EDT Images from the original note were not included. Chief Complaint Patient presents with Care Visit Penny Kebede is a 24 y.o. who presents today for a 1 week(s) check. C/S: failure to progress , Low Transverse Information for the patient's : Lanny KebedeAelxis [[id number]] 11/24/2024 female Teagan Kebede 3510 g (7 lb 11.8 oz) Gestational Age: 37w1d Baby To NICU for 6 days Delivering MD: Bhavya Carter MD. complications: gestational HTN, pre-eclampsia / eclampsia Patient reports her incision is clean, dry, intact. Patient describes vaginal bleeding as moderate.She is pumping. She would like to discuss the following complaints today: she is tearful and would like to talk about emotions. She is currently taking elavil and has been on the medication for 2 years but she takes it for GI issues and not mood. She denies all s/s preeclampsia. She desires to discuss OCPs for contraception. Patient reports concerns for depression/anxiety. Patient denies suicidal or homicidal ideation. Her depression screening questionnaire: score=17. She is currently being treated with elavil. She feels it is not helping. The additional following portions of the patient's history were reviewed and updated as appropriate: allergies, current medications, past medical history, past social history, past surgical history, and problem list. Review of Systems Constitutional: Negative. HENT: Negative. Eyes: Negative. Respiratory: Negative. Cardiovascular: Negative. Gastrointestinal: Negative. Endocrine: Negative. Genitourinary: Negative. Musculoskeletal: Negative. Skin: Negative. Abdominal incision Allergic/Immunologic: Negative. Neurological: Negative. Hematological: Negative. Psychiatric/Behavioral: Negative. Positive for depressed mood. Anxiety I have reviewed and agree with the HPI, ROS, and historical information as entered above. Sheldon Godoy, SAUSAGE MACHINE OPERATOR Objective BP 138/86 Ht 160 cm (63 ) Wt 130 kg (287 lb) LMP 02/25/2024 (Approximate) Yes BMI 50.84 kg/m?? Physical Exam Vitals and nursing note reviewed. Constitutional: Appearance: Normal appearance. She is well-developed. HENT: Head: Normocephalic and atraumatic. Cardiovascular: Rate and Rhythm: Normal rate and regular rhythm. Pulmonary: Effort: Pulmonary effort is normal. Breath sounds: Normal breath sounds. Abdominal: General: A surgical scar is present. Palpations: Abdomen is soft. Abdomen is not rigid. Comments: LTI CDI Musculoskeletal: Cervical back: Normal range of motion. Neurological: Mental Status: She is alert and oriented to person, place, and time. Psychiatric: Behavior: Behavior normal. Assessment and Plan Problem List Items Addressed This Visit None Visit Diagnoses anxiety - Primary Relevant Medications busPIRone (BUSPAR) 10 MG tablet follow-up BP check Encounter for post surgical wound check S/p , 1 week(s) . Doing well. is stable in the NICU. Continued pelvic rest with a return to driving and light physical activity. Breast pumping going well. PPD and PP anxiety. Discussed medication options including SSRI's, buspar, zurzuvae, and behavioraltherapy. She is interested in buspar. Rx sent, 20 mg tid. She will consider zurzuvae. Contraception: contraceptive methods: Abstinence Continue to monitor BP. Call for BP >/140/90. Continue labetalol 100 mg daily. Return in about 1 week (around 12/08/2024) for BP and incision check, PPD. Sheldon Godoy APRN 12/01/2024 documented in this encounter Plan of Treatment Upcoming Encounters Date Type Department Care Team (Late st Contact Info) Description 01/12/2025 2:00 PM EDT Visit [facility] O[facility] [address] [phone] Sheldon Godoy APRN 17[address] [facility] [address] [place] [address] 09/22/2025 2:45 PM EDT Office Visit [facility] SLEEP MEDICINE [address] [facility] [address] [place] [address] Dave Montaño, SAUSAGE MACHINE OPERATOR [address] [place] [address] documented as of this encounter Visit Diagnoses Diagnosis anxiety- Primary follow-up Routine follow-up BP check Screening for hypertension Encounter for post surgical wound check documented in this encounter Care Teams Food Services Coordinator Relationship Specialty Start Date End Date Sue Lieberman APRN [address] [place] [address] PCP - General Internal Medicine 11/6/24 documented as of this encounter
--- OUTSIDE RECORDS SUMMARY | 2024-12-08 14:45 | XMS_ITS | Encounter Summary ---
Author Organization [facility] Address [address] [place] [address] Care Team Providers Care Director Of Patient Financial Services Name Role Phone Sue Lieberman APRN Primary Care Provider [phone] Reason for Visit * Reason Comments Care Encounter Details Date Type Department Care Team (Late st Contact Info) Description 12/08/2024 2:45 PM EDT Visit [facility] OBGYN [address] [place], [place] [phone] Sheldon Godoy APRN [address] [place] [address] [place] [address] follow-up (Primary Dx); BP check; Encounter for post surgical wound check Social History Tobacco Use Types Packs/Day Years Used Date Smoking Tobacco: Never Passive Smoke Exposure: Never Smokeless Tobacco: Never Tobacco Cessation:Counseling Given: Not Answered Alcohol Use Standard Drinks/Week Comments Not Currently 2 (1 standard drink = 0.6 oz pur e alcohol) [facility] Utilities Answer Date Recorded In the past 12 months has [employer], gas, oil, or water company threatened to [...] and heating? Not hard at all 11/23/2024 [facility] [place] of Occupat ional Health - Occupational Stress [...] things needed for daily living? No 11/23/2024 [place] Depression Scale Answer Date Recorded [place] Depression Scale Total 2 12/08/2024 The thought of harming myself has occurred to me . Never 12/08/2024 Abuse Screen Answer Date Recorded Feels Unsafe [...] GED or equivalent No 11/23/2024 Preferred Language Trinidadian 11/23/2024 PHQ-2 Answer Date Recorded Patient Health Questionnaire-2 Score 0 11/23/2024 Comments No Sex and Gender Information Value Date Recorded Sex Assigned at Female 10/01/2024 2:08 PM EDT Legal Sex Female 10:46 AM EDT Gender Identity Not on file Sexual Orientation Not on file documented as of this encounter Last Filed Vital Signs Vital Sign Reading Time Taken Comments Blood Pressure 118/86 12/08/2024 3:33 PM EDT Pulse - - Temperature - - Respiratory Rate - - Oxygen Saturation - - Inhaled Oxygen Concentration - - Weight 125 kg (276 lb) 12/08/2024 3:33 PM EDT Height - - Body Mass Index 48.89 12/01/2024 3:38 PM EDT documented in this encounter Progress Notes * Sheldon Godoy APRN - 12/08/2024 2:45 PM EDT Images from the original note were not included. Chief Complaint Patient presents with Care Visit Penny Kebede is a 24 y.o. who presents today for a 2 week(s) check. C/S: pre-eclampsia , Low Transverse Information for the patient's : DelioAnny Brooklyn [[id number]] 11/24/2024 female Anny Kebede 3510 g (7 lb 11.8 oz) Gestational Age: 37w1d Baby To NICU for this past Thursday Delivering MD: Bhavya Carter MD. complications: pre-eclampsia / eclampsia Patient reports her incision is clean, dry, intact. Patient describes vaginal bleeding as light. She is breast and bottle feeding. She would like to discuss the following complaints today: none. She desires to discuss her options for contraception. Patient reports concerns for depression/anxiety. Patient denies suicidal or homicidal ideation. Her depression screening questionnaire: 2. No treatment is indicated The additional following portions of the patient's history were reviewed and updated as appropriate: allergies, current medications, past family history, past medical history, past social history, past surgical history, and problem list. Review of Systems Constitutional: Negative. HENT: Negative. Eyes: Negative. Respiratory: Negative. Cardiovascular: Negative. Gastrointestinal: Negative. Endocrine: Negative. Genitourinary: Negative. Musculoskeletal: Negative. Skin: Negative. Allergic/Immunologic: Negative. Neurological: Negative. Hematological: Negative. Psychiatric/Behavioral: Negative. I have reviewed and agree with the HPI, ROS, and historical information as entered above. Sheldon Godoy, SKI PATROLLER Objective BP 118/86 Wt 125 kg (276 lb) LMP 02/25/2024 (Approximate) Yes BMI 48.89 kg/m?? Physical Exam Vitals and nursing note [...] Items Addressed This Visit None Visit Diagnoses follow-up - Primary BP check Encounter for post surgical wound check S/p , 2 week(s) . Doing well. doing well and got to come home this past Thursday. Continued pelvic rest with a return to driving and light physical activity. Baby doing well. going well. Bottlefeeding going well. Contraception: contraceptive methods: Abstinenceuntil 6 weeks. Still deciding on what method. Feels much improved on buspar. Sometimes only needing it twice a day instead of three times. Discussed weaning of labetalol. Continue to monitor BP. Call for >/140/90. May hold medication if <120/80. Return in about 4 weeks (around 01/05/2025). Sheldon Godoy APRN 12/08/2024 documented in this encounter Plan of Treatment Upcoming Encounters Date Type Department Care Team (Late st Contact Info) Description 01/12/2025 2:00 PM EDT Visit [facility] OBGYN 1700 [facility] [address] [place] [phone] Sheldon Godoy APRN 1700 [facility] [address] [place] [address] 09/22/2025 2:45 PM EDT Office Visit [facility] SLEEP MEDICINE 3000 [facility] [address] [place] [phone] Dave Montaño, SKI PATROLLER [address] [place] [address] documented as of this encounter Visit Diagnoses Diagnosis follow-up- Primary Routine follow-up BP check Screening for hypertension Encounter for post surgical wound check documented in this encounter Care Teams Director Of Patient Financial Services Relationship Specialty Start Date End Date Sue Lieberman APRN [address] [place] [address] PCP - General Internal Medicine 03/09/24 documented as of this encounter
[2025-01-09 17:01] LABS: Coronavirus 19, PCR Not Detected (NotDetected); Influenza A, PCR Not Detected (NotDetected); Influenza B, PCR Not Detected (NotDetected)
--- OUTSIDE RECORDS SUMMARY | 2025-01-10 10:28 | XMS_ITS | Encounter Summary ---
[facility] Organization [facility] Address [address] [place] [address] Care Team Providers Care Measuring Machine Operator Name Role Phone Sue Lieberman APRN Primary Care Provider [phone] Encounter Details Date Type Department Care Team (Late st Contact Info) Description 10/28/2024 Results Follow-Up [facility] OBGYN [address] [place] [address] Shilpa De Leon APRN 1700 [facility] [address] [place] [phone] Social History Tobacco Use Types Packs/Day Years Used Date Smoking Tobacco: Never Smokeless Tobacco: Never Alcohol Use Standard Drinks/Week Comments Not Currently 2 (1 standard drink = 0.6 oz pur e alcohol) [facility] Utilities Answer Date Recorded In the past 12 months has [employer], [employer], oil, or water [employer] threatened to shut off services in your [...] at all 10/13/2024 [facility] of Occupat ional Health - Occupational [...] GED or equivalent No 10/13/2024 Preferred Language Albanian 10/13/2024 PHQ-2 Answer Date Recorded Patient Health [...] Info) Description 01/12/2025 2:00 PM EDT Visit [facility] OBGYN 1700 [facility] [address] [place] [address] Sheldon Godoy, BOND MANAGER 1700 [facility] [address] [place] [address] 09/22/2025 2:45 PM EDT Office Visit [facility] SLEEP MEDICINE 3000 [facility] [address] [place] [phone] Dave Montaño, BOND MANAGER [address] [place] [address] documented as of this encounter Visit Diagnoses Not on filedocumented in this encounter Care Teams Measuring Machine Operator Relationship Specialty Start Date End Date Sue Lieberman APRN [address] [place] [address] PCP - General Internal Medicine 03/09/24 documented as of this encounter
--- OUTSIDE RECORDS SUMMARY | 2025-01-10 10:28 | XMS_ITS | Encounter Summary ---
Author Organization [facility] Address [address] [place] [address] Care Team Providers Care Watch Train Assembler Name Role Phone Sue Lieberman APRN Primary Care Provider [phone] Encounter Details Date Type Department Care Team (Late st Contact Info) Description 11/02/2024 Results Follow-Up [facility] OBGYN [address] [address] Rosalinda Uriostegui APRN [address] [place] [phone] Social History Tobacco Use Types Packs/Day Years Used Date Smoking Tobacco: Never Smokeless Tobacco: Never Alcohol Use Standard Drinks/Week Comments Not Currently 2 (1 standard drink = 0.6 oz pur e alcohol) [facility] Utilities Answer Date Recorded In the past 12 months has [employer], [employer], oil, or water [employer] threatened to shut off services in your [...] and heating? Not hard at all 10/13/2024 [facility] of Occupat ional Health - [...] GED or equivalent No 10/13/2024 Preferred Language Cymro 10/13/2024 PHQ-2 Answer Date Recorded Patient Health [...] Info) Description 01/12/2025 2:00 PM EDT Visit [facility] OBGYN 1700 [facility] [address] [place] [address] Sheldon Godoy, PROGRAM MANAGEMENT ANALYST 1700 [facility] [address] [place] [address] 09/22/2025 2:45 PM EDT Office Visit [facility] SLEEP MEDICINE 3000 [facility] [address] [place] [phone] Dave Montaño, PROGRAM MANAGEMENT ANALYST [address] [place] [address] documented as of this encounter Visit Diagnoses Not on filedocumented in this encounter Care Teams Watch Train Assembler Relationship Specialty Start Date End Date Sue Lieberman APRN [address] [place] [address] [address] [place] [address] PCP - General Internal Medicine 03/09/24 documented as of this encounter
--- OUTSIDE RECORDS SUMMARY | 2025-01-10 10:28 | XMS_ITS | Encounter Summary ---
[facility] [address] [place] [address] Care Team Providers Care Digital Research Analyst Name Role Phone Sue Lieberman APRN Primary Care Provider [phone] Encounter Details Date Type Department Care Team (Late st Contact Info) Description 10/31/2024 Results Follow-Up [facility] OBGYN [address] [address] Rosalinda Uriostegui APRN [address] [place] [phone] Social History Tobacco Use Types Packs/Day Years Used Date Smoking Tobacco: Never Smokeless Tobacco: Never Alcohol Use Standard Drinks/Week Comments Not Currently 2 (1 standard drink = 0.6 oz pur e alcohol) [facility] Utilities Answer Date Recorded In the past 12 months has [employer], [employer] oil, or water [employer] threatened to shut off services in your [...] all 10/13/2024 [facility] of Occupat ional Health - Occupational [...] GED or equivalent No 10/13/2024 Preferred Language Cameroonian 10/13/2024 PHQ-2 Answer Date Recorded Patient Health [...] Info) Description 01/12/2025 2:00 PM EDT Visit [facility] O[facility]YN 1700 [facility] 701 [place] [address] Sheldon Godoy, FELLED SEAM OPERATOR 1700 [facility] [address] [place] [address] 09/22/2025 2:45 PM EDT Office Visit [facility] SLE[facility] MEDICINE 3000 [facility] [address] [place] [phone] Dave Montaño, FELLED SEAM OPERATOR [address] [place] [address] documented as of this encounter Visit Diagnoses Not on filedocumented in this encounter Care Teams Digital Research Analyst Relationship Specialty Start Date End Date Sue Lieberman APRN [address] [place] [address] [address] [place] [address] PCP - General Internal Medicine 03/09/24 documented as of this encounter
--- OUTSIDE RECORDS SUMMARY | 2025-01-10 10:28 | XMS_ITS | Clinical Summary ---
[facility] Address [address] [place] [address] Care Team Providers Care Home Improvement Contractor Name Role Phone Sue Lieberman APRN Primary Care Provider [phone] Allergies Active Allergy Reactions Criticality Noted Date Comments Penicillins Unknown - Low Severity Low 09/12/2020 Childhood allergy - unsure of reaction Medications montelukast (SINGULAIR) 10 MG tablet Take 1 tablet by mouth Daily. 30 tablet 9 05/05/2024 Active amitriptyline (ELAVIL) 50 MG tablet Take 1 tablet by mouth Every Night. Active labetalol (NORMODYNE) 200 MG tablet Take 0.5 tablets by mouth Daily. 10/18/2024 Active ibuprofen (ADVIL,MOTRIN) 600 MG tablet Take 1 tablet by mouth Every 6 (Six) Hours. 90 tablet 11/28/2024 10:44 AM EDT 11/28/2024 Active docusate sodium 100 MG capsule Take 1 capsule by mouth 2 (Two) Times a Day As Needed for Constipation . 60 capsule 11/28/2024 10:44 AM EDT 11/28/2024 Active Ferrous Sulfate (Iron) 90 (18 Fe) MG tablet Take 1 tablet by mouth Daily. 60 tablet 11/28/2024 Active cefdinir (OMNICEF) 300 MG capsule 11/29/2024 Active cetirizine (zyrTEC) 10 MG tablet Take 1 tablet by mouth Daily. Active busPIRone (BUSPAR) 10 MG tabletIndicatio ns: anxiety Take 2 tablets by mouth 3 (Three) Times a Day. 60 tablet 3 12/01/2024 Active Active Problems Problem Noted Date Diagnosed Date [...] the fetus. Obesity affecting , antepartum 05/05/19 25 Asthma Resolved Problems Problem Noted Date Diagnosed Date Resolved Date Severe preeclampsia 10/11/2024 10/15/19 25 Gestational hypertension, antepartum 09/21/2024 11/03/2024 Overview (10/20/2024): [ ] 2 ASA 81MG until delivery [ ] Twice weekly NST's 32 weeks until delivery [ ] Growth US q4 weeks [ ] 24 hour urine [ ] Consider weekly PEP [ ] Consider early delivery at 37 weeks Encounters Date Type Department Care Team Description 01/09/2025 Telephone [facility] OBGYN [address] [phone] Sheldon Godoy APRN CANCEL SAME DAY APPT. 12/14/2024 Telephone [facility] OBGYN [address] [phone] Sheldon Godoy APRN FMLA PAPERWORK 12/08/2024 2:45 PM EDT Visit [facility] OBGYN [address] [address] Sheldon oGdoy APRN follow-up (Primary Dx); BP check; Encounter for post surgical wound check 12/08/2024 Travel 12/07/2024 Maternal Screening [facility] NURSE CALL CENTER [address] [place] [address] Loretta Antonio RN 12/01/2024 3:15 PM EDT Visit [facility] OBGYN [address] [address] Sheldon Godoy APRN anxiety (Primary Dx); follow-up; BP check; Encounter for post surgical wound check 12/01/2024 Travel 11/29/2024 Maternal Screening [facility] N[facility] [address] [place] [address] Loretta Antonio RN 11/24/2024 10:25 PM EDT - 11/24/2024 11:59 PM EDT Surgery [facility] LABOR DELIVERY [address] [place] [address] Karan Mayo MD SECTION PRIMARY 11/24/2024 12:37 PM EDT Anesthesia Event [facility] DEL[facility] [address] [place] [address] Peggy Torres DO Barker, Gina, SABIHA 11/23/2024 8:08 PM EDT - 11/28/2024 3:35 PM EDT Hospital Encounter [facility] MOTHER BABY 4A [address] [place] [address] Karan Mayo MD delivery delivered (Primary Dx); care and examination immediately after delivery Discharge Disposition: Home or Self Care 11/23/2024 8:00 PM EDT - 11/23/2024 11:59 PM EDT Hospital Encounter [facility] LABOR AND DELIVERY PROCEDURES [address] [facility] [place] [address] Discharge Disposition: Home or Self Care 11/23/2024 Travel 11/23/2024 Prep for Surgery [facility] [address] [place] [address] Karan Mayo MD 11/22/2024 1:50 PM EDT Routine [facility]YN [address] [facility] [address] [place] [address] Karan Mayo MD GA: 36w6d 11/22/2024 Travel 11/18/2024 9:30 AM EDT Routine [facility] OBGYN [address] [place] [address] Karan Mayo MD GA: 36w2d 11/18/2024 Travel 11/16/2024 Telephone [facility] [address] [facility] [address] [place] [phone] Karan Mayo MD 11/16/2024 Results Follow-Up [facility] [address] [facility] [address] [place] [address] Karan Mayo MD 11/15/2024 7:10 PM EDT Lab [facility] [address] [place] [address] 11/15/2024 1:00 PM EDT Routine [facility] [address] [facility] [address] [place] [address] Karan Mayo MD GA: 35w6d 11/15/2024 11:15 AM EDT Office Visit [facility]NAL [facility]INE [facility] [facility] [address] [place] [address] Joaquín Barrientos MD Antepartum mild preeclampsia (Primary Dx) 11/15/2024 10:58 AM EDT - 11/15/2024 11:59 PM EDT Hospital Encounter [facility] US PER DIAG CTR [address] [place] [address] Elevated liver enzymes; Antepartum mild preeclampsia Discharge Disposition: Home or Self Care 11/15/2024 Travel 11/14/2024 Results Follow-Up [facility] OBGYN [address] [place] [address] Dayanna Marvin, WOOD PREPARATION SUPERVISOR 11/11/2024 8:45 AM EDT Routine [facility] OBGYN [address] [place] [address] Dayanna Marvin, WOOD PREPARATION SUPERVISOR GA: 35w2d 11/11/2024 Travel 11/08/2024 8:00 AM EDT Routine [facility] [facility] [address] [place] [address] Karan Mayo MD GA: 34w6d 11/08/2024 Travel 11/03/2024 2:00 PM EDT Routine [facility] OBGYN [address] [place] [address] Karan Mayo MD GA: 34w1d 11/03/2024 Travel 11/02/2024 Results Follow-Up [facility] OBGYN [address] [place] [address] Rosalinda Uriostegui APRN 10/31/2024 10:30 AM EDT Routine [facility] [address] [facility] [address] [place] [address] Rosalinda Uriostegui APRN GA: 33w5d 10/31/2024 9:45 AM EDT Office Visit [facility]ERNAL MEDICINE [address] [facility] [address] [place] [address] Britt Paul MD Elevated liver enzymes (Primary Dx); Antepartum mild preeclampsia 10/31/2024 9:23 AM EDT - 10/31/2024 11:59 PM EDT Hospital Encounter [facility] US PER DIAG CTR [address] [place] [address] Karna Mayo MD Discharge Disposition: Home or Self Care 10/31/2024 Results Follow-Up [facility] [address] [facility] [address] [place] [phone] Rosalinda Uriostegui APRN 10/31/2024 Travel 10/28/2024 10:30 AM EDT Routine [facility] [address] [facility] [address] [place] [address] Rosalinda Uriostegui APRN GA: 33w2d 10/28/2024 Results Follow-Up [facility] [address] [facility] [address] [place] [phone] Shilpa De Leon APRN 10/28/2024 Travel 10/25/2024 9:15 AM EDT Routine [facility]YN [address] [facility] [address] [place] [address] Shilpa De Leon APRN GA: 32w6d 10/25/2024 Travel 10/21/2024 Telephone [facility] [address] [facility] [address] [place] [address] Karan Mayo MD FMLA ERROR 10/20/2024 4:00 PM EDT Routine [facility]YN [address] [facility] [address] [place] [address] Karan Mayo MD GA: 32w1d 10/19/2024 9:10 PM EDT - 10/19/2024 11:46 PM EDT Hospital Encounter [facility] LABOR DELIVERY [address] [phone] Karan Mayo MD Allen, George Sea III, MD Discharge Disposition: Home or Self Care 10/19/2024 Travel 10/19/2024 Results Follow-Up [facility]YN [address] [facility] [address] [place] [phone] Karan Mayo MD 10/19/2024 Results Follow-Up [facility]YN [address] [facility] [address] [place] [address] Shilpa De Leon APRN 10/18/2024 10:20 AM EDT Routine [facility]YN [address] [facility] [address] [place] [address] Shilpa De Leon APRN GA: 31w6d 10/18/2024 Travel 10/14/2024 Telephone [facility]YN [address] [facility] [address] [place] [phone] Karan Mayo MD SIMMS- OB FOLLOW UP 10/10/2024 4:15 PM EDT - 10/14/2024 2:11 PM EDT Hospital Encounter [facility] ANTEPARTUM [address] [place] [address] Karan Mayo MD Gestational hypertension, antepartum (Primary Dx); Pre-eclampsia in third trimester Discharge Disposition: Home or Self Care 10/10/2024 Travel 10/10/2024 Prep for Surgery [facility] [address] [place] [address] Shilpa De Leon APRN Pre-eclampsia in third trimester (Primary Dx) 10/10/2024 Telephone [facility] [address] [facility] [address] [place] [address] Karan Mayo MD from Last 3 Months Immunizations Immunization Administration Dates Next Due Hep A, 2 Dose 12/02/2017 Meningococcal MCV4P (Menactra) 12/02/2017 Family History Medical History Relation Name Comments Hypertension Father Louis Greenfield Hypertension Maternal Aunt Diane Leggett Sleep apnea Maternal Grandfather Grey Perez Asthma Maternal Grandmother Agueda Perez COPD Maternal Grandmother Agueda [place] Hypertension Maternal Grandmother Agueda [place] Sleep apnea Maternal Grandmother Agueda Perez Thyroid disease Maternal Grandmother Agueda [place] Hypertension Mother Toma [place] Hypertension Paternal Grandfather Bayron [place] Hypertension Paternal Grandmother Tosha Green[place] Breast cancer Neg Hx Colon cancer Neg Hx Ovarian cancer Neg Hx Uterine cancer Neg Hx Relation Name Status Comments Father Louis [place] Alive Maternal Aunt Diane Leggett Maternal Grandfather Grey Perez Alive Maternal Grandmother Agueda Perez Mother Toma Greenfield Paternal Grandfather Bayron Quispelen Paternal Grandmother Tosha Greenfield Social History Tobacco Use Types Packs/Day Years Used Date Smoking Tobacco: Never Passive Smoke Exposure: Never Smokeless Tobacco: Never Tobacco Cessation:Counseling Given: Not Answered Alcohol Use Standard Drinks/Week Comments Not Currently 2 (1 standard drink = 0.6 oz pur e alcohol) [facility] Utilities Answer Date Recorded In the past 12 months has e [employer], oil, or water [employer] threatened to shut off services in your [...] at all 11/23/2024 [facility] Occupational Stress Questionnaire Answer [...] things needed for daily living? No 11/23/2024 Mousie Depression Scale Answer Date Recorded Mousie Depression Scale Total 2 12/08/2024 The thought [...] GED or equivalent No 11/23/2024 Preferred Language Danish 11/23/2024 PHQ-2 Answer Date Recorded Patient Health Questionnaire-2 Score 0 11/23/2024 Comments No Sex and Gender Information Value Date Recorded Sex Assigned at Female 10/01/2024 2:08 PM EDT Legal Sex Female 10:46 AM EDT Gender Identity Not on file Sexual Orientation Not on file Last Filed Vital Signs Vital Sign Reading Time Taken Comments Blood Pressure 118/86 12/08/2024 3:33 PM EDT Pulse 86 11/28/2024 7:05 AM EDT Temperature 36.4 C (97.5 F) 11/28/2024 7:05 AM EDT Respiratory Rate 18 11/28/2024 7:05 AM EDT Oxygen Saturation 98% 11/25/2024 1:50 AM EDT Inhaled Oxygen Concentration - - Weight 125 kg (276 lb) 12/08/2024 3:33 PM EDT Height 160 cm (5' 3 ) 12/01/2024 3:38 PM EDT Body Mass Index 48.89 12/01/2024 3:38 PM EDT Plan of Treatment Upcoming Encounters Date Type Department Care Team (Late st Contact Info) Description 01/12/2025 2:00 PM EDT Visit [facility] OBGYN [address] [facility] [address] [place] [phone] Sheldon Godoy, WOOD PREPARATION SUPERVISOR [address] [facility] [address] [place] [address] 09/22/2025 2:45 PM EDT Office Visit [facility] SLEEP MEDICINE [address] [facility] [address] [place] [phone] Dave Montaño, WOOD PREPARATION SUPERVISOR [address] [place], [place] [phone] Health Maintenance Due Date Last Done Comments HPV VACCINES (1 - 3-dose series) 2014 Pneumococcal Vaccine 0-49 (1 of 2 - PCV) 2018 TDAP/TD VACCINES (1 - Tdap) 2018 ANNUAL PHYSICAL 09/12/2020 COVID-19 Vaccine ( - 2023-2 5 season) 2025 INFLUENZA VACCINE 02/01/2025 Annual Gynecologic Pelvic an d Breast Exam 03/25/2025 03/24/2024 PAP SMEAR 03/24/2027 03/24/2024, 08/0 06/2022, 10/15/2021, Additional history exists CHLAMYDIA SCREENING Discontinued 04/22/2024, 03/24/2024, 12/03/2022, Additional history exists HEPATITIS C SCREENING Completed 09/23/2024, 024 Medical Devices Implanted Type Area Sinker Puller Device Identifier Shelf Expiration Date Model / Serial / Lot Obrien Adhs I/O Interceed Abs 3x4in - [id number] Implanted:Qty : 1 on 11/25/2024 by Karan Mayo MD at [facility] Implant N/A: Uterus [employer] 01/01/2027 [id number] / / [id number] Procedures Procedure Name Priority Date/Time Associated Diagnosis [...] Morbid obesity with BMI of 50.0-59.9, adult [facility] Routine 11/15/2024 11:32 AM EDT Elevated liver enzymes Antepartum mild preeclampsia ALP+ALT+AST+CREAT+LD+ TBILI+.. STAT 11/11/2024 9:28 AM EDT care, first in third trimester Antepartum mild preeclampsia SCANNED - PROCEDURE 11/11/2024 CBC AND DIFFERENTIAL Routine 11/08/2024 8:56 AM EDT CONV SPECIMEN STATUS REPORT* Routine 11/08/2024 8:56 AM EDT ALP+ALT+AST+CREAT+LD+ TBILI+.. Routine 11/08/2024 8:56 AM EDT care, antepartum, unspecified Other obesity affecting , antepartum Elevated liver enzymes Antepartum mild preeclampsia POCT URINALYSIS DIPSTICK, MANUAL Routine 11/08/2024 8:10 AM EDT care, antepartum, unspecified Other obesity affecting , antepartum Elevated liver enzymes Antepartum mild preeclampsia SCANNED - PROCEDURE 11/08/2024 ALP+ALT+AST+CREAT+LD+ TBILI+.. Routine 11/03/2024 3:38 PM EDT Antepartum mild preeclampsia POCT URINALYSIS DIPSTICK, MANUAL Routine 11/03/2024 3:05 PM EDT care, antepartum, unspecified SCANNED - PROCEDURE 11/03/2024 SCANNED - PROCEDURE 11/03/2024 ALP+ALT+AST+CREAT+LD+ TBILI+.. Routine 10/31/2024 11:09 AM EDT care in third trimester, unspecified Elevated liver enzymes Gestational hypertension, antepartum 33 weeks gestation of POCT URINALYSIS DIPSTICK, MANUAL Routine 10/31/2024 10:48 AM EDT care in third trimester, unspecified [facility] Routine 10/31/2024 9:59 AM EDT Obesity affecting , antepartum, unspecified obesity type 32 weeks gestation of Antepartum mild preeclampsia ALP+ALT+AST+CREAT+LD+ TBILI+.. Routine 10/28/2024 11:46 AM EDT care, third [...] in third trimester SCANNED - PROCEDURE 10/25/2024 ALP+ALT+AST+CREAT+LD+ TBILI+.. Routine 10/20/2024 5:34 PM EDT Antepartum mild [...] (NO DIFF) Routine 10/14/2024 4:43 AM EDT LIVER Routine 10/13/2024 8:51 PM EDT PROTEIN, URINE, 24 HOUR Routine 10/12/2024 9:02 PM EDT CBC AND DIFFERENTIAL Routine 10/12/2024 5:20 AM EDT SCAN SLIDE Routine 10/12/2024 5:20 AM EDT CBC WITH AUTO DIFFERENTIAL Routine 10/12/2024 5:20 AM EDT PRE-ECLAMPSIA PANEL Routine 10/12/2024 5 :20 AM EDT [facility] Routine 10/11/2024 7:44 AM [...] (NO DIFF) Routine 10/10/2024 5:12 PM EDT HEPATITIS PANEL, ACUTE STAT 09/23/2024 2:30 PM EDT 28 weeks gestation of Gestational hypertension, second trimester CHLAMYDIA TRACHOMATIS, NEISSERIA [...] - 10.80 10*3/mm3 11/28/2024 7:38 AM EDT [facility] RBC 3.12(L) 3.77 - 5.28 10*6/mm3 11/28/2024 7:38 AM EDT [facility] Hemoglobin 8.9(L) 12.0 - 15.9 g/dL 11/28/2024 7:38 AM EDT [facility] Hematocrit 28.7(L) 34.0 - 46.6 % 11/28/2024 7:38 AM EDT [facility] MCV 92.0 79.0 - 97.0 fL 11/28/2024 7:38 AM EDT [facility] MCH 28.5 26.6 - 33.0 pg 11/28/2024 7:38 AM EDT [facility] MCHC 31.0(L) 31.5 - 35.7 g/dL 11/28/2024 7:38 AM EDT [facility] RDW 15.0 12.3 - 15.4 % 11/28/2024 7:38 AM EDT [facility] RDW-SD 50.3 37.0 - 54.0 fl 11/28/2024 7:38 AM EDT [facility] MPV 10.6 6.0 - 12.0 fL 11/28/2024 7:38 AM EDT [facility] Platelets 192 140 - 450 10*3/mm3 11/28/2024 7:38 AM EDT [facility] Neutrophil % 53.0 42.7 - 76.0 % 11/28/2024 7:38 AM EDT [facility] Lymphocyte % 30.9 19.6 - 45.3 % 11/28/2024 7:38 AM EDT [facility] Monocyte % 12.1(H) 5.0 - 12.0 % 11/28/2024 7:38 AM EDT [facility] Eosinophil % 3.4 0.3 - 6.2 % 11/28/2024 7:38 AM EDT [facility] Basophil % 0.4 0.0 - 1.5 % 11/28/2024 7:38 AM EDT [facility] Immature Grans % 0.2 0.0 - 0.5 % 11/28/2024 7:38 AM EDT [facility] Neutrophils, Absolute 2.50 1.70 - 7.00 10*3/mm3 11/28/2024 7:[facility] Lymphocytes, Absolute 1.46 0.70 - 3.10 10*3/mm3 11/28/2024 7:38 [facility] Monocytes, Absolute 0.57 0.10 - 0.90 10*3/mm3 11/28/2024 7:38 AM EDT [facility] Eosinophils, Absolute 0.16 0.00 - 0.40 10*3/mm3 11/28/2024 7:38 AM [facility] Basophils, Absolute 0.02 0.00 - 0.20 10*3/mm3 11/28/2024 7:38 AM [facility] Immature Grans, Absolute 0.01 0.00 - 0.05 10*3/mm3 11/28/2024 7:38 AM [facility] nRBC 0.0 0.0 - 0.2 /100 WBC 11/28/2024 7:38 AM [facility] Blood Venipuncture / Unknown 11/28/2024 6:22 AM EDT 11/28/2024 7:12 AM EDT Radha Alicia Nolvia WOOD PREPARATION SUPERVISOR LAB BLOOD ORDERABLES Final Re sult Performing Organization Address City/[facility]/ZIP Co de Phone Number [facility]
[address] [place] [address], * (ABNORMAL) Preeclampsia Panel (11/26/2024 1:37 PM EDT) Only the most recent of6 resultswithin the time period is included. Pathologist [facility] Alkaline Phosphatase 107 39 - 117 U/L 11/26/2024 2:04 PM EDT [facility] ALT (SGPT) 48(H) 1 - 33 U/L 11/26/2024 2:04 PM EDT [facility] AST (SGOT) 23 1 - 32 U/L 11/26/2024 2:04 PM EDT [facility] Creatinine 0.61 0.57 - 1.00 mg/dL 11/26/2024 2:04 PM EDT [facility] Total Bilirubin 0.2 0.0 - 1.2 mg/dL 11/26/2024 2:04 PM EDT [facility] LDH 237(H) 135 - 214 U/L 11/26/2024 2:04 PM EDT [facility] Comment:Specimen hemolyzed. Results may be affected. Uric Acid 6.3(H) 2.4 - 5.7 mg/dL 11/26/2024 2:04 PM EDT [facility] Blood Venipuncture / Unknown 11/26/2024 1:37 PM EDT 11/26/2024 1:44 PM EDT Radha De Souza WOOD PREPARATION SUPERVISOR LAB BLOOD ORDERABLES Final Re sult [facility]
[address] [place] [address], * (ABNORMAL) Blood Gas, Venous, Cord (11/24/2024 11:54 PM EDT) Pathologist [facility] Site Umbilical 11/25/2024 12:01 AM [facility] THERAPY pH, Cord Venous 7.313 7.310 - 7.370 pH Units 11/25/2024 12:01 AM [facility] RESPIRATORY THERAPY pCO2, Cord Venous 49.9(H) 28.0 - 40.0 mm Hg 11/25/2024 12:01 AM [facility] RESPIRATORY THERAPY pO2, Cord Venous 18.8(L) 21.0 - 31.0 mm Hg 11/25/2024 12:01 AM [facility] RESPIRATORY THERAPY HCO3, Cord Venous 25.3(H) 18.6 - 21.4 mmol/L 11/25/2024 12:01 AM [facility] RESPIRATORY THERAPY Base Excess, Cord Venous -1.6(L) 0.0 - 2.0 mmol/L 11/25/2024 12:01 AM [facility] RESPIRATORY THERAPY O2 Sat, Cord Venous 39.4 % 11/25/2024 12:01 AM [facility] THERAPY Hemoglobin, Blood Gas 15.1 14 - 18 g/dL 11/25/2024 12:01 AM [facility] RES[facility] THERAPY CO2 Content 26.8 22 - 33 mmol/L 11/25/2024 12:01 AM [facility] THERAPY Temperature 37.0 11/25/2024 12:01 AM [facility] RES[facility]IR[facility] THERAPY Barometric Pressure for Blood Gas 11/25/2024 12:01 AM [facility] THERAPY Comment:N/A Modality Room Air 11/25/2024 12:01 AM [facility] RESPIR[facility] THERAPY FIO2 21 % 11/25/2024 12:01 AM [facility] RESPIR[facility] THERAPY Ventilator Mode 12:01 AM [facility] RESPIR[facility] THERAPY Rate 0 Breaths/m inute 11/25/2024 12:01 AM [facility] RESPIRAT[facility] THERAPY PIP 0 cmH2O 11/25/2024 12:01 AM [facility] RESPIR[facility] THERAPY Comment:Meter: [id number] Senior Living Sales Counselor: [id number] IPAP 0 11/25/2024 12:01 AM EDT [facility] RES[facility] THERAPY EPAP 0 11/25/2024 12:01 AM EDT [facility] RES[facility]IR[facility] THERAPY O2 Saturation Calculated 11/25/2024 12:01 AM EDT [facility] THERAPY Comment:Calculated O2 satura tion result not reported at this site. Cord Blood Venous Umbilical cord structure / Unknown 11/24/2024 11:54 PM EDT 11/24/2024 11:54 PM EDT us Karan Mayo MD LAB BLOOD ORDERABLES Final Resu lt [facility] RESPIRAT[facility] THERAPY
[address] [place] [address], * (ABNORMAL) Blood Gas, Arterial, Cord (11/24/2024 11:53 PM EDT) Site Umbilical 11/25/2024 12:00 AM EDT [facility] THERAPY pH, Cord Arterial 7.27 7.22 - 7.30 pH Units 11/25/2024 12:00 AM EDT [facility] RES[facility] THERAPY pCO2, Cord Arterial 56.9(H) 43.3 - 54.9 mmHg 11/25/2024 12:00 AM EDT [facility] RES[facility] THERAPY pO2, Cord Arterial 13.6 11.5 - 43.3 mmHg 11/25/2024 12:00 AM EDT [facility] RES[facility] THERAPY HCO3, Cord Arterial 25.9(H) 16.9 - 20.5 mmol/L 11/25/2024 12:00 AM EDT [facility] RES[facility] THERAPY Base Exc, Cord Arterial -2.3(L) 0.0 - 2.0 mmol/L 11/25/2024 12:00 AM EDT [facility] O2 Sat, Cord Arterial 19.8 % 11/25/2024 12:00 AM EDT [facility] Hemoglobin, Blood Gas 15.6 14 - 18 g/dL 11/25/2024 12:00 AM EDT [facility] CO2 Content 27.6 22 - 33 mmol/L 11/25/2024 12:00 AM EDT [facility] Temperature 37.0 11/25/2024 12:00 AM EDT [facility] Barometric Pressure for Blood Gas 11/25/2024 12:00 AM EDT [facility] Comment:N/A Modality Room Air 11/25/2024 12:00 AM EDT [facility] FIO2 21 % 11/25/2024 12:00 AM EDT [facility] Rate 0 Breaths/m inute 11/25/2024 12:00 AM EDT [facility] PIP 0 cmH2O 11/25/2024 12:00 AM EDT [facility] Comment:Meter: [id number] [employer] Sales Counselor: [id number] IPAP 0 11/25/2024 12:00 AM EDT [facility] EPAP 0 11/25/2024 12:00 AM EDT [facility] Note 0 11/25/2024 12:00 AM EDT [facility] Cord Blood Arterial Umbilical cord structure / Unknown 11/24/2024 11:53 PM EDT 11/24/2024 11:53 PM EDT Karan Mayo MD LAB BLOOD ORDERABLES Final Resu lt [facility]
[id number] [place] [address], * BH AN LABOR EPIDURAL KIT (11/24/2024 1:03 [...] evaluation and timeout performed Prep: Pt Position:sitting [employer] Machine:cap, gloves, mask and sterile barrier Prep:DuraPrep Monitoring:blood [...] 200.0 mg/G Crea 11/24/2024 9:27 AM EDT [facility] Creatinine, Urine 128.3 mg/dL 11/24/2024 9:27 AM EDT [facility] Total Protein, Urine 13.2 mg/dL 11/24/2024 9:27 AM EDT [facility] Urine Urine specimen obtained by clean catch procedure / Unknown Collection / Unknown 11/23/2024 11:15 PM EDT 11/23/2024 11:45 PM EDT Karan Mayo MD URINE ORDERABLES Final Result [facility]
[address] [place] [address], [place] [phone] * Clements Bulb Cervical Ripening Without Infusion (11/23/2024 9:43 PM EDT) Narrative Adithya Nelson MD - 11/23/2024 9:43 PM EDT Adithya Nelson MD 11/23/2024 9:45 PM Transcervical Clements placed per physician request. FHT's class 1. Patient tolerated well. 24 mongolian, 60ml. Adithya Nelson MD 11/23/2024 21:45 EDT us Karan Mayo MD OB GYNE ORDERABLES Final Result * Treponema pallidum AB w/Reflex RPR (11/23/2024 8:48 PM EDT) Only the most recent of2 resultswithin the time period is included. Pathologist [facility] Treponemal AB Total Non-Reacti ve Non-React noemi 11/24/2024 2:54 AM EDT [facility] Blood Venipuncture / Unknown 11/23/2024 8:48 PM EDT 11/23/2024 9:27 PM EDT Narrative [facility] - 11/24/2024 2:54 AM EDT Reactive results will reflex RPR testing. Karan Mayo MD LAB BLOOD ORDERABLES Final Resu lt [facility]
[address] [place] [address], * CBC (No Diff) (11/23/2024 8:48 PM EDT) Only the most recent of3 resultswithin the time period is included. Pathologist [facility] WBC 9.65 3.40 - 10.80 10*3/mm3 11/23/2024 9:44 PM EDT [facility] RBC 4.22 3.77 - 5.28 10*6/mm3 11/23/2024 9:44 PM EDT [facility] Hemoglobin 12.1 12.0 - 15.9 g/dL 11/23/2024 9:44 PM EDT [facility] Hematocrit 37.0 34.0 - 46.6 % 11/23/2024 9:44 PM EDT [facility] MCV 87.7 79.0 - 97.0 fL 11/23/2024 9:44 PM EDT [facility] MCH 28.7 26.6 - 33.0 pg 11/23/2024 9:44 PM EDT [facility] MCHC 32.7 31.5 - 35.7 g/dL 11/23/2024 9:44 PM EDT [facility] RDW 14.3 12.3 - 15.4 % 11/23/2024 9:44 PM EDT [facility] RDW-SD 45.6 37.0 - 54.0 fl 11/23/2024 9:44 PM EDT [facility] MPV 11.6 6.0 - 12.0 fL 11/23/2024 9:44 PM EDT [facility] Platelets 202 140 - 450 10*3/mm3 11/23/2024 9:44 PM EDT [facility] Blood Venipuncture / Unknown 11/23/2024 8:48 PM EDT 11/23/2024 9:26 PM EDT us Karan Mayo MD LAB BLOOD ORDERABLES Final Resu lt Performing Organization Address City/[facility]/ZIP Co de Phone Number [facility]
[address] [place] [address], * Type & Screen (11/23/2024 8:48 PM EDT) Only the most recent of2 resultswithin the time period is included. ABO Type O 11/23/2024 10:02 PM EDT [facility] RH type Positive 11/23/2024 10:02 PM EDT [facility] Antibody Screen Negative 11/23/2024 10:02 PM EDT [facility] T&S Expiration Date 11/26/2024 11:59:59 PM 11/23/2024 10:02 PM EDT [facility] Blood Venipuncture / Unknown 11/23/2024 8:48 PM EDT 11/23/2024 9:26 PM EDT us Karan Mayo MD BLOOD BANK TEST ORDERABLES Edit ed Result - Final [facility]
[address] [place] [address], [place] [phone] * Uric Acid (11/23/2024 8:48 PM EDT) Only the most recent of2 resultswithin the time period is included. Pathologist [facility] Uric Acid 5.1 2.4 - 5.7 mg/dL 11/23/2024 10:06 PM EDT [facility] Comment:Falsely depressed re sults may occur on samples drawn from patients receiving N-Acetylcysteine (NAC) or Metamizole. Blood Venipuncture / Unknown 11/23/2024 8:48 PM EDT 11/23/2024 9:26 PM EDT us Karan Mayo MD LAB BLOOD ORDERABLES Final Resu lt Performing Organization Address [facility]/ZIP Co de Phone Number [facility]
[address] [place] [address], [place] [phone] * (ABNORMAL) Lactate Dehydrogenase (11/23/2024 8:48 PM EDT) Only the most recent of2 resultswithin the time period is included. Pathologist [facility] LDH 242(H) 135 - 214 U/L 11/23/2024 10:06 PM EDT [facility] Comment:Specimen hemolyzed. Results may be affected. Blood Venipuncture / Unknown 11/23/2024 8:48 PM EDT 11/23/2024 9:26 PM EDT us Karan Mayo MD LAB BLOOD ORDERABLES Final Resu lt Performing Organization Address City/[facility]/ZIP Co de Phone Number [facility]
[address] [place] [address], [place] [phone] * (ABNORMAL) Comprehensive Metabolic Panel (11/23/2024 8:48 PM EDT) Only the most recent of2 resultswithin the time period is included. Glucose 116(H) 65 - 99 mg/dL 11/23/2024 10:06 PM [facility] BUN 7.0 6.0 - 20.0 mg/dL 11/23/2024 10:06 PM [facility] Creatinine 0.50(L) 0.57 - 1.00 mg/dL 11/23/2024 10:06 PM [facility] Sodium 137 136 - 145 mmol/L 11/23/2024 10:06 PM [facility] Potassium 4.0 3.5 - 5.2 mmol/L 11/23/2024 10:06 PM [facility] Chloride 107 98 - 107 mmol/L 11/23/2024 10:06 PM [facility] CO2 19.1(L) 22.0 - 29.0 mmol/L 11/23/2024 10:06 PM [facility] Calcium 8.9 8.6 - 10.5 mg/dL 11/23/2024 10:06 PM [facility] Total Protein 5.9(L) 6.0 - 8.5 g/dL 11/23/2024 10:06 PM [facility] Albumin 3.4(L) 3.5 - 5.2 g/dL 11/23/2024 10:06 PM [facility] ALT (SGPT) 90(H) 1 - 33 U/L 11/23/2024 10:06 PM [facility] AST (SGOT) 52(H) 1 - 32 U/L 11/23/2024 10:06 PM [facility] Alkaline Phosphatase 129(H) 39 - 117 U/L 11/23/2024 10:06 PM [facility] Total Bilirubin 0.3 0.0 - 1.2 mg/dL 11/23/2024 10:06 PM [facility] Globulin 2.5 gm/dL 11/23/2024 10:06 PM [facility] Comment:Calculated Result A/G Ratio 1.4 g/dL 11/23/2024 10:06 PM EDT [facility] BUN/Creatinine Ratio 14.0 7.0 - 25.0 11/23/2024 10:06 PM EDT [facility] Anion Gap 10.9 5.0 - 15.0 mmol/L 11/23/2024 10:06 PM EDT [facility] eGFR 133.7 >60.0 mL/min/1.7 3 11/23/2024 10:06 PM EDT [facility] Blood Venipuncture / Unknown 11/23/2024 8:48 PM EDT 11/23/2024 9:26 PM EDT Narrative [facility] - 11/23/2024 10:06 PM [...] MD LAB BLOOD ORDERABLES Final Resu lt [facility]
[address] [place] [address], [place] [phone] * POC Urinalysis Dipstick (11/22/2024 2:22 PM EDT) Only the most recent of8 resultswithin the time period is included. Glucose, UA Negative Negative mg/dL [facility] Protein, POC Negative Negative mg/dL [facility] Urine 11/22/2024 2:22 PM EDT us Karan Mayo MD POINT OF CARE TEST ORDERABLES F inal Result [facility]
[address] [place] [address], [place] [phone] * Procedure Scanned (11/22/2024) us Karan Mayo MD PROCEDURE/MINOR SURGICAL ORDERA BLES Final Result * Procedure Scanned (11/18/2024) us Karan Mayo MD PROCEDURE/MINOR SURGICAL ORDERA BLES Final Result * Group B Streptococcus Culture - Swab, Vaginal/Rectum (11/15/2024 7:06 PM EDT) Pathologist [facility] Group B Strep Culture No Group B Streptococcus isolated GIUSEPPE 11/18/2024 8:21 AM EDT [facility] Swab Rectum and vagina, CS / Unknown Collection / Unknown 11/15/2024 7:06 PM EDT 11/15/2024 7:06 PM EDT us Karan Mayo MD MICROBIOLOGY - GENERAL ORDERABL ES Final Result Performing Organization Address [facility]/ZIP Co de Phone Number [facility]
[address] [place] [address], [place] [phone] * (ABNORMAL) AlP+ALT+AST+Creat+LD+TBili+.. (11/15/2024 1:29 PM EDT) Only the most recent of7 resultswithin the time period is included. Uric [...] 11/15/2024 1:29 PM EDT 11/15/2024 Narrative [facility] ([facility]) - 11/16/2024 3:35 AM EDT Performed at: [address] [place] [address] [id number] Cold Rolling Machine Setter: Jeremy Emanuel MD, Phone: [phone] us Karan Mayo MD LAB BLOOD ORDERABLES Final Resu lt [facility] ([facility]) [address] [place] [address], [facility] [address] [place] [address], * [facility] (11/15/2024 11:32 AM EDT) Only the most recent of3 resultswithin the time period is included. Anatomical Region Laterality Modality Ultrasound 11/15/2024 11:0 7 AM EDT Narrative 11/15/2024 11:44 AM EDT PAT NAME: PENNY URIBE MED REC#: [id number] DA: [id number] PAT GEND: F PAT TYPE: O EXAM JEAN-CLAUDE: [id number] REF PHYS KARAN MAYO Comparison Studies The [...] by LMP 37 w + 5 d KAERN by LMP: 12/01/2024 [place] by prior assessment [...] EFW (oz) 14 oz EFW by: Hadlock ([id number]) Extended Cav. septi pel. tr 6.6 mm [...] Normal Heart / Thorax 3-vessel view: suboptimal 2-wgnnai-gkkxofj view: suboptimal Stomach: Appears normal Kidneys: Appears [...] Follow-up as clinically indicated. Coding ======= Description: 71566-03 Follow Up Ultrasound Description: 60705-97 BPP without NST Hull Outfit Supervisor: Monae Armstrong RDMS Physician: Joaquín Barrientos MD, FACOG Electronically signed by: Joaquín Barrientos MD, FACOG at: 11:44 Procedure Note Joaquín Barrientos MD - 11/15/2024 PAT NAME: PENNY URIBE MED REC#: [id number] DA: 2000 PAT GEND: F PAT TYPE: O EXAM JEAN-CLAUDE: [id number] REF PHYS SHANTI MAYONE Comparison Studies The findings of this study are compared to the prior ultrasound studydated 10/31/24. Patient Status Outpatient Indication ======== Preeclampsia. Super obesity BMI 52. Maternal Assessment Pdbjcl239 cm Height (ft)5 ft Height (in)3 in Xmcils556 kg Weight (lb)300 lb BMI53.16 kg/m Method ======= Transabdominal ultrasound examination. View: Limited by patient bodyhabitus ========= Navarro . Number of fetuses: 1 Dating ====== LMP on:02/25/2024 GA by LMP37 w + 5 d KAREN by LMP:12/01/2024 GA by prior [id number] w + 6 d KAREN by prior [...] GA35 w + 6 d Assigned KAREN:12/14/2024 [id number] d Biometry Standard BPD88.2 mm 35w 5d 51% Hadlock WZW694.3 mm -/- 98% Mary HC329.0 mm 37w 3d 58% Hadlock Cerebellum tr46.9 mm 35w 3d 34% Hill AC342.8 mm 38w 1d 98% Hadlock Femur68.4 mm 35w 1d 26% Hadlock Hmripqr70.8 mm 35w 1d 51% Mary HC / AC0.96 EFW3,113 g 37w 3d 82% Hadlock EFW (lb)6 lb EFW (oz)14 oz EFW by:Hadlock ([id number]-RU-HA-FL) Extended Cav. septi pel. tr6.6 mm CM7.9 mm 61% Nicolaides Head / Face / Neck Cephalic index0.75 4% Nicolaides Extremities / Bony Struc FL / BPD0.78 FL / HC0.21 FL / AC0.20 Other Structures PJT254 bpm General Evaluation Cardiac activity present. FHR 141 bpm. movements present. Presentation cephalic. Placenta Placental site: posterior. Amniotic fluid Amount of AF: normal. MVP 4.8 cm. JD 16.0 cm. Q1 3.1 cm,Q2 4.5 cm, Q3 4.8 cm, Q4 3.6 cm. Anatomy Cranium:Normal Cavum septi pellucidi:Normal Cerebellum:Normal Cisterna magna:Normal Lips:suboptimal Profile:suboptimal 4-chamber view:Appears normal RVOT view:Normal LVOT view:Normal Heart / Thorax 3-vessel view:suboptimal 7-famwfy-ndbkcdy view:suboptimal Stomach:Appears normal Kidneys:Appears normal Bladder:Appears normal [...] Recommendation Follow-up as clinically indicated. Coding ======= Description:36482-40 Follow Up Ultrasound Description:90225-58 BPP without NST Hull Outfit Supervisor: Monae Armstrong RDMS Physician: Joaquín Barrientos MD, FACOG Electronically signed by: Joaquín Barrientos MD, FACOG at: 11:44 Britt Paul MD IMG US ORDERABLES Final [...] - 11/09/2024 2:36 PM EDT Performed at: [address] [place] [address] [id number] Cold Rolling Machine Setter: Jeremy Emanuel MD, Phone: [phone] Karan Mayo MD LAB BLOOD ORDERABLES Final Resu lt [facility] ([facility]) [address] [place] [address], [facility] [address] [place] [address], * (ABNORMAL) CBC & Differential (11/08/2024 8:56 [...] - 11/09/2024 2:36 PM EDT Performed at: [address] [place] [address] [id number] Cold Rolling Machine Setter: Jeremy Emanuel MD, Phone: [phone] Karan Mayo MD LAB BLOOD ORDERABLES Final Resu lt [facility] ([facility]) [address] [place] [address], [facility] [address] [place] [address], [place] [phone] * Procedure Scanned (11/08/2024) us Karan Mayo MD PROCEDURE/MINOR SURGICAL ORDERA BLES Final Result * Procedure Scanned (11/03/2024) [facility] Onbase PROCEDURE/MINOR SURGICAL ORDE RABLES Final Result * Procedure Scanned (11/03/2024) us Karan Mayo MD PROCEDURE/MINOR SURGICAL ORDERA BLES Final Result * POC Protein, Urine, Qualitative, Dipstick (10/28/2024 10:49 AM EDT) Only the most recent of2 resultswithin the time period is included. Protein, POC Negative Negative mg/dL [facility] Lot Number 0 [facility] Expiration Date 0 [facility] Urine 10/28/2024 10:4 9 AM EDT Rosalinda Uriostegui WOOD PREPARATION SUPERVISOR POINT OF CARE TEST ORDERAB LES Final Result Performing Organization Address City/[facility]/ZIP Co de Phone Number [facility]
[address] [id number], * POC Glucose, Urine, Qualitative, Dipstick (10/28/2024 10:49 AM EDT) Glucose, UA Negative Negative mg/dL [facility] Urine 10/28/2024 10:4 9 AM EDT Rosalinda N Gila WOOD PREPARATION SUPERVISOR POINT OF CARE TEST ORDERAB LES Final Result Performing Organization Address City/[facility]/ZIP Co de Phone Number [facility]
[address] [id number], * Procedure Scanned (10/28/2024) Rosalinda Alem Uriostegui WOOD PREPARATION SUPERVISOR PROCEDURE/MINOR SURGICAL O RDERABLES Final Result * (ABNORMAL) Protein, Urine, 24 Hour - (10/25/2024 10:14 AM EDT) Only the most recent of3 resultswithin the time period is included. Total Protein, Urine 9.8 Not Estab. mg/dL [facility] Protein, 24H Urine 225(H) 30 - 150 mg/24 hr [facility] 10/25/2024 10:1 4 AM EDT 10/25/2024 Narrative [facility] ([facility]) - 10/26/2024 11:11 AM EDT Performed at: - [address] [id number] Cold Rolling Machine Setter: Cristian Acuña PhD, Phone: [phone] Shilpa De Leon APRN URINE ORDERABLES Final Result [facility] ([facility]) [address] [place] [address], [facility] [address] [place] [address], [place] [phone] * Procedure Scanned (10/25/2024) Shilpa De Leon APRN PROCEDURE/MINOR SURGICAL ORDERA BLES Final Result * Procedure Scanned (10/20/2024) Karan Mayo MD PROCEDURE/MINOR SURGICAL ORDERA BLES Final Result * Procedure Scanned (10/18/2024) Shilpa De Leon APRN PROCEDURE/MINOR SURGICAL ORDERA BLES Final Result * US Liver (10/13/2024 8:51 PM EDT) Anatomical Region Laterality Modality Body, Abdomen Ultrasound 10/13/2024 9:15 PM EDT Impressions 10/13/2024 9:20 PM EDT Impression: Negative right upper quadrant ultrasound. Electronically Signed: Nathaniel Engel MD 10/13/2024 9:20 PM EDT Workstation ID: [id number] Narrative 10/13/2024 9:20 PM EDT US LIVER [...] evident. The right kidney measures 12 cm hjri-ci-kcdo. The echogenicity of the renal cortex is [...] evident. The right kidney measures 12 cm vwvi-hu-rckb. The echogenicity of therenal cortex is within normal limits relative to the liver. No shadowingstones are seen. There is no evidence of hydronephrosis. IMPRESSION: Impression: Negative right upper quadrant ultrasound. Electronically Signed: Nathaniel Engel MD 10/13/2024 9:20 PM EDT Workstation ID: [id number] us Karan Mayo MD IMG US ORDERABLES Final Result * Scan Slide (10/12/2024 5:20 AM EDT) Pathologist [facility] RBC Morphology Normal Normal 10/12/2024 7:31 AM EDT [facility] WBC Morphology Normal Normal 10/12/2024 7:31 AM EDT [facility] Platelet Morphology Normal Normal 10/12/2024 7:31 AM EDT [facility] Blood Venipuncture / Unknown 10/12/2024 5:20 AM EDT 10/12/2024 5:59 AM EDT Karan Mayo MD LAB BLOOD ORDERABLES Final Resu lt Performing Organization Address City/[facility]/ZIP Co de Phone Number [facility]
[address] [place] [address], * ABO RH Specimen Verification (10/10/2024 6:59 PM EDT) [facility] ABO Type O 10/10/2024 7:24 PM EDT [facility] RH type Positive 10/10/2024 7:24 PM EDT [facility] Blood Venipuncture / Unknown 10/10/2024 6:59 PM EDT 10/10/2024 7:06 PM EDT Shilpa De Leon APRN BLOOD BANK TEST ORDERABLES Milena l Result [facility]
[address] [place] [address], * Hepatitis Panel, Acute (09/23/2024 2:30 PM EDT) Pathologist [facility] Hep A IgM Negative Negative [facility] Comment: A negative anti-HAV IgM result suggests no recent or current HAV infection. Hepatitis B Surface Ag Negative Negative [facility] Hep B Core IgM Negative Negative [facility] Hepatitis C Ab Non Reactive Non Reactive [facility] Blood 09/23/2024 2:30 PM EDT 09/23/[address] [facility] (AMBULATORY) - 09/24/2024 8:36 AM EDT Performed at: 01 - [facility] [address] [place], [place] [id number] Cold Rolling Machine Setter: Cristian Acuña PhD, Phone: [phone] Rosalinda Uriostegui WOOD PREPARATION SUPERVISOR LAB BLOOD ORDERABLES Final Result Performing Organization Address [facility]/ZIP Co de Phone Number [facility] [address] [place] [address], [facility] [address] [place] [address], * Chlamydia trachomatis, Neisseria gonorrhoeae, PCR - Urine, Urine, Clean Catch (04/22/2024 12:00 AM EST) [facility] Chlamydia trachomatis, MOJGAN Negative Negative [facility] Neisseria gonorrhoeae, MOJGAN Negative Negative [facility] Urine Urine specimen obtained by clean catch procedure / Unknown 04/22/2024 04/22/2024 Comment:Blood Release to pat i [facility] (AMBULATORY) - 04/25/2024 8:07 PM EST Performed at: [address] [id number] Cold Rolling Machine Setter: Vani Middleton MD, Phone: [phone] Karan Mayo MD MICROBIOLOGY - GENERAL ORDERABL ES Final Result Performing Organization Address City/[facility]/ZIP Co de Phone Number [facility] (AMBULATORY) [address] [place] [address], [facility] [address] [place] [address], * LIQUID-BASED PAP SMEAR WITH HPV GENOTYPING REGARDLESS OF INTERPRETATION (JOANNA,COR,MAD) (03/24/2024 3:37 PM EST) [facility] Reference Lab Report [facility] [address] [place] [address] or [phone] Be Vergara M.D., Hand Assembler For Puller Over PATIENT NAME LABORATORY NO. PENNY QUENE [id number] AGE SEX SSN CLIENT REF # [facility] 25 2000 F [id number] Anan CLARIBEL GARDNER REQUESTING Jimmy [place]ENDING [place] [address] DAYANNA MARVIN DATE COLLECTED DATE RECEIVED DATE REPORTED 03/24/2024 03/24/2024 03/28/2024 ThinPrep Pap with Cytyc Imaging DIAGNOSIS: Epithelial cell abnormality. (ASC) Atypical squamous cells of undetermined significance. COMMENT: Benign cellular changes associated with reactive/reparativ e changes are present. Professional interpretation rendered by Be Vergara M.D., F.C.A.P. at [facility], [address] [place] [address]. SPECIMEN ADEQUACY: SATISFACTORY FOR EVALUATION Transformation zone [...] 51, 52, 56, 58, 59, 66, 68 DOUBLE CORNER CUTTER: KAROL COLLINS(ASCP) REVIEWED, DIAGNOSED AND ELECTRONICALLY SIGNED BY: Be Vergara M.D., F.C.A.P. CPT CODES: [id number], [id number], [id number] 03/28/2024 2:32 PM EST [facility] ThinPrep Vial Collection / Unknown 03/24/2024 3:37 PM EST 03/24/2024 3:37 PM EST Dayanna Marvin WOOD PREPARATION SUPERVISOR PATHOLOGY/CYTOLOGY ORDERA BLES Final Result [facility]
[address] [place] [address], from Last 3 Months or Most Recently Relevant to Health Maintenance Insurance [facility] PPO [place]ICA[place] Advance Directives * CPR [...] Of Support Discussed With: Patient Care Teams Home Improvement Contractor Relationship Specialty Start Date End Date Sue Lieberman APRN [address] [place] [phone] PCP - General Internal Medicine 03/09/24
--- OUTSIDE RECORDS SUMMARY | 2025-01-10 10:28 | XMS_ITS | Encounter Summary ---
[facility] Address [address] [place] [address] Care Team Providers Care Ballet Teacher Name Role Phone Sue Lieberman APRN Primary Care Provider [phone] Encounter Details Date Type Department Care Team (Late st Contact Info) Description 10/19/2024 Results Follow-Up [facility] OBGYN [address] [address] Bhavya Carter MD [address] [place] [address] Social History Tobacco Use Types Packs/Day Years Used Date Smoking Tobacco: Never Smokeless Tobacco: Never Alcohol Use Standard Drinks/Week Comments Not Currently 2 (1 standard drink = 0.6 oz pur e alcohol) [facility] Utilities Answer Date Recorded In the past 12 months has [employer], [employer], oil, or water [employer] threatened to shut off services in your [...] GED or equivalent No 10/13/2024 Preferred Language Liberian 10/13/2024 PHQ-2 Answer Date Recorded Patient Health [...] 9:25 PM EDT Peggy Chacon RN * Jenkins Suicide Severity Rating Scale (Screener/Recent Self-Report) Question Answer Date of Assessment Author 6. Suicidal Behavior (Lifetime) No 10/19/2024 9:25 PM EDT Topher Doan RN documented as of this encounter Plan of Treatment Upcoming Encounters Date Type Department Care Team (Late st Contact Info) Description 01/12/2025 2:00 PM EDT Visit [facility] OBGYN [address] [facility] [address] [place] [address] Sheldon Godoy, INSOLVENCY PRACTITIONER [address] [facility] [address] [place] [address] 09/22/2025 2:45 PM EDT Office Visit [facility] SLEEP MEDICINE [address] [facility] [address] [place] [address] Dave Montaño, INSOLVENCY PRACTITIONER [address] [place] [address] documented as of this encounter Visit Diagnoses Not on filedocumented in this encounter Care Teams Ballet Teacher Relationship Specialty Start Date End Date Sue Lieberman, INSOLVENCY PRACTITIONER [address] [place] [phone] PCP - General Internal Medicine 03/09/24 documented as of this encounter
--- OUTSIDE RECORDS SUMMARY | 2025-01-10 10:29 | XMS_ITS | Encounter Summary ---
Author Organization [facility] Address [address] [place] [address] Care Team Providers Care Public Health Epidemiologist Name Role Phone Sue Lieberman ALEE Primary Care Provider [phone] Encounter Details Date Type Department Care Team (Late Contact Info) Description 09/22/2024 Results Follow-Up [facility] OBGYN [address] [address] Bhavya Carter MD [address] [place] [phone] Social History Tobacco Use Types Packs/Day Years [...] 2:00 PM EDT Visit [facility] OBGYN [address] [facility] [address] [place] [phone] Sheldon Godoy, VP BIOLOGY [address] [facility] [address] [place] [address] 09/22/2025 2:45 PM EDT Office Visit [facility] SLEEP MEDICINE [address] [facility] [address] [place] [phone] Dave Montaño, VP BIOLOGY [address] [place] [address] documented as of this encounter Visit Diagnoses Not on filedocumented in this encounter Care Teams Public Health Epidemiologist Relationship Specialty Start Date End Date Sue Lieberman, VP BIOLOGY [address] [address] PCP - General Internal Medicine 03/09/24 documented as of this encounter
--- OUTSIDE RECORDS SUMMARY | 2025-01-10 10:29 | XMS_ITS | Encounter Summary ---
[facility] Organization [facility] Address [address] [place] [address] Care Team Providers Care Sales Development Associate Name Role Phone LiebermanSue duran ALEE Primary Care Provider [phone] Encounter Details Date Type Department Care Team (Late st Contact Info) Description 09/30/2024 Results Follow-Up [facility] OBGYN [address] [place] [address] Dayanna Marvin, LEGAL INSTRUMENTS EXAMINER [address] [place] [address] Social History Tobacco Use Types Packs/Day Years [...] Info) Description 01/12/2025 2:00 PM EDT Visit [facility] OBGYN 1700 [facility] 701 [place] [phone] Sheldon Godoy, LEGAL INSTRUMENTS EXAMINER 1700 [facility] [address] [place] [address] 09/22/2025 2:45 PM EDT Office Visit [facility] SLEEP MEDICINE 3000 [facility] 240 [place] [phone] Dave Montaño, LEGAL INSTRUMENTS EXAMINER [address] [place] [address] documented as of this encounter Visit Diagnoses Not on filedocumented in this encounter Care Teams Sales Development Associate Relationship Specialty Start Date End Date Sue Lieberman, LEGAL INSTRUMENTS EXAMINER [facility] [address] [address] PCP - General Internal Medicine 03/09/24 documented as of this encounter
--- OUTSIDE RECORDS SUMMARY | 2025-01-10 10:29 | XMS_ITS | Encounter Summary ---
Author Organization [facility] Address [address] [place] [address] Care Team Providers Care Senior It Security Analyst Name Role Phone Sue Lieberman APRN Primary Care Provider [phone] Encounter Details Date Type Department Care Team (Late st Contact Info) Description 10/06/2024 Results Follow-Up [facility] OBGYN [address] [place] [address] Dayanna Marvin, ORAL AND MAXILLOFACIAL SURGEON [address] [place] [address] Social History Tobacco Use Types Packs/Day Years [...] Visit [facility] OBGYN 1700 [facility] 701 [place] [address] Sheldon Godoy, ORAL AND MAXILLOFACIAL SURGEON 1700 [facility] [address] [place] [address] 09/22/2025 2:45 PM EDT Office Visit [facility] SLEEP MEDICINE 3000 [facility] [address] [place] [phone] Dave Montaño, ORAL AND MAXILLOFACIAL SURGEON [address] [place] [address] documented as of this encounter Visit Diagnoses Not on filedocumented in this encounter Care Teams Senior It Security Analyst Relationship Specialty Start Date End Date Sue Lieberman, ORAL AND MAXILLOFACIAL SURGEON [facility] [address] [id number] PCP - General Internal Medicine 03/09/24 documented as of this encounter
--- OUTSIDE RECORDS SUMMARY | 2025-01-10 10:29 | XMS_ITS | Encounter Summary ---
Author Organization [facility] Address [address] [place] [address] Care Team Providers Care Bond Clerk Name Role Phone Sue Lieberman APRN Primary Care Provider [phone] Encounter Details Date Type Department Care Team (Latest Contact Info) Description 11/18/2024 Travel Social History Tobacco Use Types Packs/Day Years Used Date Smoking Tobacco: Never Smokeless Tobacco: Never Alcohol Use Standard Drinks/Week Comments Not Currently 2 (1 standard drink = 0.6 oz pur e alcohol) [facility] Utilities Answer Date Recorded In the past 12 months has [employer] electric, gas, oil, or water company threatened [...] and heating? Not hard at all 10/13/2024 [place] [facility] Occupat ional Health - Occupational Stress [...] GED or equivalent No 10/13/2024 Preferred Language Senegalese 10/13/2024 PHQ-2 Answer Date Recorded Patient Health [...] Info) Description 01/12/2025 2:00 PM EDT Visit [facility] OBGYN 1700 [facility] 701 [place] [address] Sheldon Godoy, DRUM LOADER AND UNLOADER 1700 [facility] [address] [place] [address] 09/22/2025 2:45 PM EDT Office Visit [facility] SLEEP MEDICINE 3000 [facility] [address] [place] [address] Dave Montaño, DRUM LOADER AND UNLOADER [address] [place] [address] documented as of this encounter Visit Diagnoses Not on filedocumented in this encounter Care Teams Bond Clerk Relationship Specialty Start Date End Date Sue Lieberman APRN [address] [address] PCP - General Internal Medicine 03/09/24 documented as of this encounter
--- OUTSIDE RECORDS SUMMARY | 2025-01-10 10:29 | XMS_ITS | Encounter Summary ---
[facility] Address [address] [place] [address] Care Team Providers Care Wash House Supervisor Name Role Phone Sue Lieberman APRN Primary Care Provider [phone] Encounter Details Date Type Department Care Team (Late st Contact Info) Description 12/07/2024 Maternal Screening [facility] NURSE [facility] [address] [place] [address] Loretta Antonio, RN Social History Tobacco Use Types Packs/Day Years Used Date Smoking Tobacco: Never Passive Smoke Exposure: Never Smokeless Tobacco: Never Alcohol Use Standard Drinks/Week Comments Not Currently 2 (1 standard drink = 0.6 oz pur e alcohol) [facility] Utilities Answer Date Recorded In [...] and heating? Not hard at all 11/23/2024 [facility] [place] of Occupat ional Health - Occupational Stress [...] things needed for daily living? No 11/23/2024 [place] Depression Scale Answer Date Recorded [place] Depression Scale Total 2 12/08/2024 The thought [...] GED or equivalent No 11/23/2024 Preferred Language Austrian 11/23/2024 PHQ-2 Answer Date Recorded Patient Health Questionnaire-2 Score 0 11/23/2024 Comments No Sex and Gender Information Value Date Recorded Sex Assigned at Female 10/01/2024 2:08 PM EDT Legal Sex Female 10:46 AM EDT Gender Identity Not on file Sexual Orientation Not on file documented as of this encounter Miscellaneous Notes * Outreach Note - Loretta Antonio RN - 12/07/2024 11:34 AM EDT Maternal Screening Survey Flowsheet Row Responses Facility patient discharged from? [place] Attempt successful? Yes Call start time 1140 Call end time 1142 I have been able to laugh and see the funny side of things. 0 I have looked forward with enjoyment to things. 0 I have blamed myself unnecessarily when things went wrong. 0 I have been anxious or worried for no good reason. 0 I have felt scared or panicky for no good reason. 0 Things have been getting on top of me. 0 I have been so unhappy that I have had difficulty sleeping. 0 I have felt sad or miserable. 0 I have been so unhappy that I have been crying. 0 The thought of harming myself has occurred to me. 0 [place] Depression Scale Total 0 Did any of your parents have problems with alcohol or drug use? No Do any of your peers have problems with alcohol or drug use? No Does your partner have problems with alcohol or drug use? No Before you were did you have problems with alcohol or drug use? (past) No In the past month, did you drink beer, wine, liquor or use any other drugs? () No Maternal Screening call completed Yes Loretta Weinberg - Registered Nurse documented in this encounter Plan of Treatment Upcoming Encounters Date Type Department Care Team (Late st Contact Info) Description 01/12/2025 2:00 PM EDT Visit [facility] OBGYN 1700 [facility] 701 [place] [address] Sheldon Godoy, ZONING ASSISTANT 1700 [facility] [address] [place] [address] 09/22/2025 2:45 PM EDT Office Visit [facility] SLEEP MEDICINE 3000 [facility] [address] [place] [address] Dave Montaño, ZONING ASSISTANT [address] [place] [address] documented as of this encounter Visit Diagnoses Not on filedocumented in this encounter Care Teams Wash House Supervisor Relationship Specialty Start Date End Date Sue Lieberman APRN [facility] [address] [address] PCP - General Internal Medicine 03/09/24 documented as of this encounter
--- OUTSIDE RECORDS SUMMARY | 2025-01-10 10:29 | XMS_ITS | Clinical Summary ---
Author Organization [facility] Address [address] [facility] [address] [place] [address] Care Team Providers Care Elevated Work Platform Operator Name Role Phone Dave Montaño CLINICAL ACADEMIC ALLERGIST Primary Care Provider [phone] Social History Tobacco Use Types Packs/Day Years [...] 19+ 3-dose series) 2018 Pap Smear 2020 Depression Risk Screening 05/04/2024 SDOH Screening 05/04/2024 COVID-19 Vaccine (1 - 2023-2 5 season) 2025 Influenza Vaccine (#1) 2025 Zoster Vaccines (1 [...] complete this topic Insurance NEVIN Care Teams Elevated Work Platform Operator Relationship Specialty Start Date End Date Dave Montaño NP [address] [place] [address] PCP - General 07/06/24
--- OUTSIDE RECORDS SUMMARY | 2025-01-10 10:29 | XMS_ITS | Encounter Summary ---
Author Organization [facility] Address [address] [place] [address] Care Team Providers Care Telephone Interceptor Operator Name Role Phone MioCriseldawon VICKERS Primary Care Provider [phone] Encounter Details Date Type Department Care Team (Late Contact Info) Description 09/25/2024 Results Follow-Up [facility] OBGYN 1700 [facility] [address] [place] [address] Rosalinda Uriostegui APRN 1700 [facility] [address] [place], [place] [phone] Social History Tobacco Use Types Packs/Day Years [...] Encounters Date Type Department Care Team (Late Contact Info) Description 01/12/2025 2:00 PM EDT Visit [facility] OBGYN 1700 [facility] [address] [place] [address] Sheldon Godoy APRN 1700 [facility] [address] [place], [place] [address] 09/22/2025 2:45 PM EDT Office Visit [facility] SLEEP MEDICINE 3000 [facility] [address] [place] [address] Dave Montaño, CANADIAN BACON TIER [address] [place] [address] documented as of this encounter Visit Diagnoses Diagnosis Iron deficiency anemia during - Primary documented in this encounter Care Teams Telephone Interceptor Operator Relationship Specialty Start Date End Date Sue Lieberman, ALEE [address] [place] [address] PCP - General Internal Medicine 03/09/24 documented as of this encounter
--- OUTSIDE RECORDS SUMMARY | 2025-01-10 10:29 | XMS_ITS | Encounter Summary ---
Author Organization [facility] Address [address] [place] [address] Care Team Providers Care Gas Specialist Name Role Phone Sue Lieberman APRN Primary Care Provider [phone] Encounter Details Date Type Department Care Team (Latest Contact Info) Description 12/01/2024 Travel Social History Tobacco Use Types Packs/Day Years Used Date Smoking Tobacco: Never Passive Smoke Exposure: Never Smokeless Tobacco: Never Alcohol Use Standard Drinks/Week Comments Not Currently 2 (1 standard drink = 0.6 oz pur e alcohol) [facility] Utilities Answer Date Recorded In the past 12 months has [employer] electric, gas, oil, or water company threatened [...] and heating? Not hard at all 11/23/2024 Brazilian [employer] [facility] Occupat ional Health - Occupational Stress [...] things needed for daily living? No 11/23/2024 [place] Depression Scale Answer Date Recorded [place] Depression Scale Total 17 12/01/2024 The thought [...] GED or equivalent No 11/23/2024 Preferred Language Rwandan 11/23/2024 PHQ-2 Answer Date Recorded Patient Health [...] Info) Description 01/12/2025 2:00 PM EDT Visit [facility] OBGYN 1700 [facility] 701 [place] [phone] Sheldon Godoy, FINAL ARMATURE TESTER 1700 [facility] [address] [place] [address] 09/22/2025 2:45 PM EDT Office Visit [facility] SLEEP MEDICINE 3000 [facility] [address] [place] [address] Dave Montaño, FINAL ARMATURE TESTER [address] [place] [address] documented as of this encounter Visit Diagnoses Not on filedocumented in this encounter Care Teams Gas Specialist Relationship Specialty Start Date End Date Sue Lieberman APRN [address] [place] [address] [address] PCP - General Internal Medicine 03/09/24 documented as of this encounter
--- OUTSIDE RECORDS SUMMARY | 2025-01-10 10:29 | XMS_ITS | Encounter Summary ---
Author Organization [facility] Address [address] [place] [address] Care Team Providers Care Lcac Radar Operator/Navigator Name Role Phone Sue Lieberman APRN Primary Care Provider [phone] Encounter Details Date Type Department Care Team (Latest Contact Info) Description 11/15/2024 Travel Social History Tobacco Use Types Packs/Day Years Used Date Smoking Tobacco: Never Smokeless Tobacco: Never Alcohol Use Standard Drinks/Week Comments Not Currently 2 (1 standard drink = 0.6 oz pur e alcohol) [facility] Utilities Answer Date Recorded In the past 12 months has [employer] electric, gas, oil, or water company threatened [...] and heating? Not hard at all 10/13/2024 [place] [facility] Occupat ional Health - Occupational Stress [...] GED or equivalent No 10/13/2024 Preferred Language Danish 10/13/2024 PHQ-2 Answer Date Recorded Patient Health [...] Visit [facility] OBGYN 1700 [facility] 701 [place] [address] Sheldon Godoy, ANIME ARTIST 1700 [facility] [address] [place] [address] 09/22/2025 2:45 PM EDT Office Visit [facility] SLEEP MEDICINE 3000 [facility] 240 [place] [address] Dave Montaño, ANIME ARTIST [address] [place] [address] documented as of this encounter Visit Diagnoses Not on filedocumented in this encounter Care Teams Lcac Radar Operator/Navigator Relationship Specialty Start Date End Date Sue Lieberman APRN [address] [address] PCP - General Internal Medicine 03/09/24 documented as of this encounter
--- OUTSIDE RECORDS SUMMARY | 2025-01-10 10:29 | XMS_ITS | Encounter Summary ---
[facility] Address [address] [place] [address] Care Team Providers Care Surgical Elastic Knitter Name Role Phone Sue Lieberman APRN Primary Care Provider [phone] Encounter Details Date Type Department Care Team (Late st Contact Info) Description 11/16/2024 Results Follow-Up [facility] OBGYN [address] [address] Bhavya Carter MD [address] [place] [address] Social History Tobacco Use Types Packs/Day Years Used Date Smoking Tobacco: Never Smokeless Tobacco: Never Alcohol Use Standard Drinks/Week Comments Not Currently 2 (1 standard drink = 0.6 oz pur e alcohol) [facility] Utilities Answer Date Recorded In the past 12 months has [employer], [employer], oil, or water [employer] threatened to shut off services in your [...] and heating? Not hard at all 10/13/2024 [facility] of Occupat ional Health - [...] GED or equivalent No 10/13/2024 Preferred Language Chinese 10/13/2024 PHQ-2 Answer Date Recorded Patient Health [...] Visit [facility] OBGYN 1700 [facility] 701 [place] [address] Sheldon Godoy, DESIGN EDITOR 1700 [facility] [address] [place] [address] 09/22/2025 2:45 PM EDT Office Visit [facility] SLEEP MEDICINE 3000 [facility] 240 [place] [address] Dave Montaño, DESIGN EDITOR [address] [place] [address] documented as of this encounter Visit Diagnoses Not on filedocumented in this encounter Care Teams Surgical Elastic Knitter Relationship Specialty Start Date End Date Sue Lieberman APRN [address] [place] [address] PCP - General Internal Medicine 03/09/24 documented as of this encounter
--- OUTSIDE RECORDS SUMMARY | 2025-01-10 10:29 | XMS_ITS | Encounter Summary ---
[facility] Address [address] [place] [address] Care Team Providers Care Street Light Servicer Supervisor Name Role Phone Sue Lieberman APRN Primary Care Provider [phone] Encounter Details Date Type Department Care Team (Late st Contact Info) Description 10/19/2024 Results Follow-Up [facility] OBGYN [address] [place] [address] Shilpa De Leon APRN 1700 [facility] [address] [place] [id number] Social History Tobacco Use Types Packs/Day Years Used Date Smoking Tobacco: Never Smokeless Tobacco: Never Alcohol Use Standard Drinks/Week Comments Not Currently 2 (1 standard drink = 0.6 oz pur e alcohol) [facility] Utilities Answer Date Recorded In the past 12 months has [employer], [employer], oil, or water [employer] threatened to shut off services in your [...] heating? Not hard at all 10/13/2024 [facility] of Occupat ional Health - Occupational [...] GED or equivalent No 10/13/[address] [place] 10/13/2024 PHQ-2 Answer Date Recorded Patient Health [...] 9:25 PM EDT Peggy Chacon RN * [place] Suicide Severity Rating Scale (Screener/Recent Self-Report) Question Answer Date of Assessment Author 6. Suicidal Behavior (Lifetime) No 10/19/2024 9:25 PM EDT Dileep Doan RN documented as of this encounter Plan of Treatment Upcoming Encounters Date Type Department Care Team (Late st Contact Info) Description 01/12/2025 2:00 PM EDT Visit [facility] OBGYN 1700 [facility] 701 [place] [address] Sheldon Godoy, SAMPLER OVENS 1700 [facility] [address] [place] [address] 09/22/2025 2:45 PM EDT Office Visit [facility] SLEEP MEDICINE 3000 [facility] 240 [place] [address] Dave Montaño, SAMPLER OVENS [address] [place] [address] documented as of this encounter Visit Diagnoses Not on filedocumented in this encounter Care Teams Street Light Servicer Supervisor Relationship Specialty Start Date End Date Sue Lieberman, SAMPLER OVENS [address] [place] [address] PCP - General Internal Medicine 03/09/24 documented as of this encounter
--- OUTSIDE RECORDS SUMMARY | 2025-01-10 10:29 | XMS_ITS | Encounter Summary ---
[facility] Address [address] [place] [address] Care Team Providers Care Synchronous Motor Assembler Name Role Phone LiebermanSue duran ALEE Primary Care Provider Encounter Details Date Type Department Care Team (Late st Contact Info) Description 09/20/2024 Results Follow-Up [facility] OBGYN [address] [place] [address] Dayanna Marvin, PERL DEVELOPER 1700 [facility] [address] [place], [place] [id number] Social History Tobacco Use Types Packs/Day Years [...] EDT Visit [facility] OBGYN 1700 [facility] 701 [place] [address] Sheldon Godoy, PERL DEVELOPER 1700 [facility] [address] [place] [address] 09/22/2025 2:45 PM EDT Office Visit [facility] SLEEP MEDICINE 3000 [facility] [address] [place] [address] Dave Montaño, PERL DEVELOPER [address] [place] [address] documented as of this encounter Visit Diagnoses Not on filedocumented in this encounter Care Teams Synchronous Motor Assembler Relationship Specialty Start Date End Date Sue Lieberman, PERL DEVELOPER [facility] [address] [address] PCP - General Internal Medicine 03/09/24 documented as of this encounter
--- OUTSIDE RECORDS SUMMARY | 2025-01-10 10:29 | XMS_ITS | Encounter Summary ---
Author [facility] Address [address] [place] [address] Care Team Providers Care Arc Cutter Name Role Phone Sue Lieberman APRN Primary Care Provider [phone] Encounter Details Date Type Department Care Team (Late st Contact Info) Description 11/16/2024 Telephone [facility] OBGYN 1700 [facility] [address] [place] [address] Bhavya Carter MD 1700 [facility] 701 [place] [address] Social History Tobacco Use Types Packs/Day Years Used Date Smoking Tobacco: Never Smokeless Tobacco: Never Alcohol Use Standard Drinks/Week Comments Not Currently 2 (1 standard drink = 0.6 oz pur e alcohol) [facility] Utilities Answer Date Recorded In the past 12 months has [employer], gas, oil, or water [employer] threatened to shut off services in your [...] Never 10/13/2024 Overall Financial Resource Strain (CARDIA) Alainae r Date Recorded How hard is it for you to pa y for the very basics like food, housing, medical care, and heating? Not hard at all 10/13/2024 [facility] [place] of Occupat ional Health - Occupational Stress [...] GED or equivalent No 10/13/2024 Preferred Language Dominican 10/13/2024 PHQ-2 Answer Date Recorded Patient Health [...] 11:01 AM EDT Pt notified, per Dr. aCrter, labs are stable. No need for 24 [...] EDT Visit [facility] OBGYN 1700 [facility] 701 [place] [address] Sheldon Godoy APRN 1700 [facility] [address] [place] [address] 09/22/2025 2:45 PM EDT Office Visit [facility] SLEEP MEDICINE 3000 [facility] [address] [place] [address] Dave Montaño, WEAVER HAND LOOM [address] [place] [address] documented as of this encounter Visit Diagnoses Not on filedocumented in this encounter Care Teams Arc Cutter Relationship Specialty Start Date End Date Sue Lieberman, ALEE [address] [place] [address] PCP - General Internal Medicine 03/09/24 documented as of this encounter
--- OUTSIDE RECORDS SUMMARY | 2025-01-10 10:29 | XMS_ITS | Encounter Summary ---
[facility] Address [address] [place] [address] Care Team Providers Care Train Station Server Name Role Phone Sue Lieberman APRN Primary Care Provider [phone] Reason for Visit * Reason Onset Date Comments FMLA ERROR 10/21/2024 Encounter Details Date Type Department Care Team (Late st Contact Info) Description 10/21/[address] [facility] OBGYN [address] [phone] Bhavya Carter MD [address] [place] [address] FMLA ERROR Social History Tobacco Use Types Packs/Day Years Used Date Smoking Tobacco: Never Smokeless Tobacco: Never Alcohol Use Standard Drinks/Week Comments Not Currently 2 (1 standard drink = 0.6 oz pur e alcohol) [facility] Utilities Answer Date Recorded In the past 12 months has [employer], gas, oil, or water [employer] threatened to shut off services in your [...] and heating? Not hard at all 10/13/2024 [facility] [place] of Occupat ional Health - Occupational Stress [...] - 10/21/2024 12:47 PM EDT PENNY KEBEDE [phone] ON [facility] PAPERWORK P2 LINE 1 RIGHT NOW IT READS 12/14/24, IT SHOULD READ 10/20/24 ALSO ON SAME PAGE, 2 MORE TIMES IT SAYS 12/14/24, SHOULD READ 10/20/24 PAGE 3 LINE 8 IT READS 12/14/24, IT SHOULD READ PLEASE CORRECT AND PLACE BACK ON [facility]. documented in this encounter Plan of Treatment Upcoming Encounters Date Type Department Care Team (Late st Contact Info) Description 01/12/2025 2:00 PM EDT Visit [facility] OBGYN [address] [address] Sheldon Godoy, TECHNICAL CONSULTANT 1700 [facility] [address] [place], [place] [address] 09/22/2025 2:45 PM EDT Office Visit [facility] SLEEP MEDICINE 3000 [facility] [address] [place] [address] Dave Montaño, TECHNICAL CONSULTANT [address] [place], [place] [address] documented as of this encounter Visit Diagnoses Not on filedocumented in this encounter Care Teams Train Station Server Relationship Specialty Start Date End Date Sue Lieberman APRN [address] [place] [address] PCP - General Internal Medicine 03/09/24 documented as of this encounter
--- OUTSIDE RECORDS SUMMARY | 2025-01-10 10:29 | XMS_ITS | Encounter Summary ---
Author Organization [facility] Address [address] [place] [address] Care Team Providers Care Light Bulb Tester Name Role Phone Sue Lieberman APRN Primary Care Provider [phone] Encounter Details Date Type Department Care Team (Latest Contact Info) Description 11/23/2024 Travel Social History Tobacco Use Types Packs/Day Years Used Date Smoking Tobacco: Never Passive Smoke Exposure: Never Smokeless Tobacco: Never Alcohol Use Standard Drinks/Week Comments Not Currently 2 (1 standard drink = 0.6 oz pur e alcohol) [facility] Utilities Answer Date Recorded In the past 12 months has [employer], gas, oil, or water company threatened [...] and heating? Not hard at all 11/23/2024 [facility] [place] of Occupat ional Health - Occupational Stress [...] GED or equivalent No 11/23/2024 Preferred Language Indian 11/23/2024 PHQ-2 Answer Date Recorded Patient Health [...] 9:02 PM EDT Jn Millan RN * [place] Suicide Severity Rating Scale (Screener/Recent Self-Report) Question [...] Info) Description 01/12/2025 2:00 PM EDT Visit [facility] OBGYN 1700 [facility] [address] [place] [address] Sheldon Godoy APRN 1700 [facility] [address] [place] [address] 09/22/2025 2:45 PM EDT Office Visit [facility] [address] [facility] [address] [place] [address] Dave Montaño, MANAGER WELLNESS [address] [place] [address] documented as of this encounter Visit Diagnoses Not on filedocumented in this encounter Care Teams Light Bulb Tester Relationship Specialty Start Date End Date Sue Lieberman APRN [address] [address] PCP - General Internal Medicine 03/09/24 documented as of this encounter
--- OUTSIDE RECORDS SUMMARY | 2025-01-10 10:30 | XMS_ITS | Encounter Summary ---
Author Organization [facility] Address [address] [place] [address] Care Team Providers Care Ceramics Test Engineer Name Role Phone Sue Lieberman APRN Primary Care Provider [phone] Encounter Details Date Type Department Care Team (Latest Contact Info) Description 12/08/2024 Travel Social History Tobacco Use Types Packs/Day Years Used Date Smoking Tobacco: Never Passive Smoke Exposure: Never Smokeless Tobacco: Never Alcohol Use Standard Drinks/Week Comments Not Currently 2 (1 standard drink = 0.6 oz pur e alcohol) [facility] Utilities Answer Date Recorded In the past 12 months has [employer] electric, gas, oil, or water company threatened [...] and heating? Not hard at all 11/23/2024 [facility] [place] of Occupat ional Health - Occupational Stress [...] things needed for daily living? No 11/23/2024 [place] Depression Scale Answer Date Recorded [place] Depression Scale Total 2 12/08/2024 The thought [...] GED or equivalent No 11/23/2024 Preferred Language Moldovan 11/23/2024 PHQ-2 Answer Date Recorded Patient Health [...] Description 01/12/2025 2:00 PM EDT Visit [facility] OBGYN 1700 [facility] 701 [place] [phone] Sheldon Godoy, RESEARCH INTERN 1700 [facility] [address] [place] [address] 09/22/2025 2:45 PM EDT Office Visit [facility] SLEEP MEDICINE 3000 [facility] [address] [place] [address] Dave Montaño, RESEARCH INTERN [address]00 [place] [address] documented as of this encounter Visit Diagnoses Not on filedocumented in this encounter Care Teams Ceramics Test Engineer Relationship Specialty Start Date End Date Sue Lieberman APRN [address] [place] [address] [address] PCP - General Internal Medicine 03/09/24 documented as of this encounter
--- OUTSIDE RECORDS SUMMARY | 2025-01-10 10:30 | XMS_ITS | Encounter Summary ---
Author Organization [facility] Address [address] [place] [address] Care Team Providers Care Software Programmer Name Role Phone Sue Lieberman APRN Primary Care Provider [phone] Encounter Details Date Type Department Care Team (Latest Contact Info) Description 11/11/2024 Travel Social History Tobacco Use Types Packs/Day Years Used Date Smoking Tobacco: Never Smokeless Tobacco: Never Alcohol Use Standard Drinks/Week Comments Not Currently 2 (1 standard drink = 0.6 oz pur e alcohol) [facility] Utilities Answer Date Recorded In the past 12 months has [employer], gas, oil, or water company threatened [...] and heating? Not hard at all 10/13/2024 [place] of Occupat ional Health - Occupational Stress [...] GED or equivalent No 10/13/2024 Preferred Language Kosovan 10/13/2024 PHQ-2 Answer Date Recorded Patient Health [...] Info) Description 01/12/2025 2:00 PM EDT Visit [facility] OBGYN 1700 [facility] 701 [place] [address] Sheldon Godoy, HAUL TRUCK DRIVER 1700 [facility] [address] [place] [address] 09/22/2025 2:45 PM EDT Office Visit [facility] SLEEP MEDICINE 3000 [facility] [address] [place] [address] Dave Montaño, HAUL TRUCK DRIVER [address] [place] [address] documented as of this encounter Visit Diagnoses Not on filedocumented in this encounter Care Teams Software Programmer Relationship Specialty Start Date End Date Sue Lieberman APRN [address] [address] PCP - General Internal Medicine 03/09/24 documented as of this encounter
--- OUTSIDE RECORDS SUMMARY | 2025-01-10 10:30 | XMS_ITS | Encounter Summary ---
[facility] Address [address] [place] [address] Care Team Providers Care Supervisor Assembly Room Name Role Phone Sue Lieberman APRN Primary Care Provider [phone] Reason for Visit * Reason Onset Date Comments CANCEL SAME DAY APPT. 01/09/2025 Encounter Details Date Type Department Care Team (Late st Contact Info) Description 01/09/2025 Telephone [facility] OBGYN [address] [place], [place] [phone] Sheldon Godoy APRN [address] [place] [address] [place] [address] CANCEL SAME DAY APPT. Social History Tobacco Use Types Packs/Day Years Used Date Smoking Tobacco: Never Passive Smoke Exposure: Never Smokeless Tobacco: Never Alcohol Use Standard Drinks/Week Comments Not Currently 2 (1 standard drink = 0.6 oz pur e alcohol) [facility] Utilities Answer Date Recorded In the past 12 months has [employer], gas, oil, or water [employer] threatened to shut off services in your [...] and heating? Not hard at all 11/23/2024 [facility] [place] of Occupat ional Health - Occupational Stress [...] things needed for daily living? No 11/23/2024 [place] Depression Scale Answer Date Recorded [place] Depression Scale Total 2 12/08/2024 The thought [...] GED or equivalent No 11/23/2024 Preferred Language Taiwanese 11/23/2024 PHQ-2 Answer Date Recorded Patient Health Questionnaire-2 Score 0 11/23/2024 Comments No Sex and Gender Information Value Date Recorded Sex Assigned at Female 10/01/2024 2:08 PM EDT Legal Sex Female 10:46 AM EDT Gender Identity Not on file Sexual Orientation Not on file documented as of this encounter Miscellaneous Notes * Telephone Encounter - Donna Robles RegSched Rep - 01/09/2025 10:09 AM EDT Caller: PENNY KEBEDE Best call back number: :[phone] PATIENT CALLED REQUESTING TO CANCEL SAME DAY APPT. Did the patient call AFTER the start time of their scheduled appointment? []YES [x]NO Was the patient's appointment rescheduled? [x]YES []NO documented in this encounter Plan of Treatment Upcoming Encounters Date Type Department Care Team (Late st Contact Info) Description 01/12/2025 2:00 PM EDT Visit [facility] OBGYN [address] [address] Sheldon Godoy APRN 1700 [facility] [address] [place] [address] 09/22/2025 2:45 PM EDT Office Visit [facility] SLEEP MEDICINE 3000 [facility] [address] [place] [phone] Dave Montaño, FOUNDER AND CEO [address] [place] [address] documented as of this encounter Visit Diagnoses Not on filedocumented in this encounter Care Teams Supervisor Assembly Room Relationship Specialty Start Date End Date Sue Lieberman, FOUNDER AND CEO [facility] [address] [address] PCP - General Internal Medicine 03/09/24 documented as of this encounter
--- OUTSIDE RECORDS SUMMARY | 2025-01-10 10:30 | XMS_ITS | Encounter Summary ---
[facility] Address [address] [place] [address] Care Team Providers Care Melter Loader Name Role Phone Sue Lieberman APRN Primary Care Provider [phone] Encounter Details Date Type Department Care Team (Late st Contact Info) Description 11/23/2024 Prep for Surgery [facility] ORDERS ONLY 17[address] [place] [address] Bhavya Carter MD 1700 [facility] 701 [place] [address] Social History Tobacco Use Types Packs/Day Years Used Date Smoking Tobacco: Never Passive Smoke Exposure: Never Smokeless Tobacco: Never Alcohol Use Standard Drinks/Week Comments Not Currently 2 (1 standard drink = 0.6 oz pur e alcohol) [facility] Utilities Answer Date Recorded In the past 12 months has [employer], gas, oil, or water [employer] threatened to shut off services in your [...] and heating? Not hard at all 11/23/2024 [place] of Occupat ional Health - Occupational Stress [...] GED or equivalent No 11/23/2024 Preferred Language Ghanaian 11/23/2024 PHQ-2 Answer Date Recorded Patient Health [...] Info) Description 01/12/2025 2:00 PM EDT Visit [facility] OBGYN 1700 [facility] 701 [place] [address] Sheldon Godoy, LICENSE DISTRIBUTOR 1700 [facility] [address] [place] [address] 09/22/2025 2:45 PM EDT Office Visit [facility] SLEEP MEDICINE 3000 [facility] [address] [place] [address] Dave Montaño, LICENSE DISTRIBUTOR [address] [place] [address] documented as of this encounter Visit Diagnoses Not on filedocumented in this encounter Care Teams Melter Loader Relationship Specialty Start Date End Date Sue Lieberman, LICENSE DISTRIBUTOR 1210 [facility] 36 [facility] [address] [place] [address] PCP - General Internal Medicine 03/09/24 documented as of this encounter
--- OUTSIDE RECORDS SUMMARY | 2025-01-10 10:30 | XMS_ITS | Encounter Summary ---
Author Organization [facility] Address [address] [place] [address] Care Team Providers Care Milk Receiver Tank Truck Name Role Phone Sue Lieberman APRN Primary Care Provider [phone] Encounter Details Date Type Department Care Team (Latest Contact Info) Description 11/22/2024 Travel Social History Tobacco Use Types Packs/Day Years Used Date Smoking Tobacco: Never Smokeless Tobacco: Never Alcohol Use Standard Drinks/Week Comments Not Currently 2 (1 standard drink = 0.6 oz pur e alcohol) [facility] Utilities Answer Date Recorded In the past 12 months has [employer] electric, gas, oil, or water company threatened [...] and heating? Not hard at all 11/23/2024 [place] of Occupat ional Health - Occupational Stress [...] GED or equivalent No 11/23/2024 Preferred Language Yemeni 11/23/2024 PHQ-2 Answer Date Recorded Patient Health [...] Info) Description 01/12/2025 2:00 PM EDT Visit [facility] OBGYN 1700 [facility] 701 [place] [address] Sheldon Godoy, ANODIZER 1700 [facility] [address] [place] [address] 09/22/2025 2:45 PM EDT Office Visit [facility] SLEEP MEDICINE 3000 [facility] 240 [place] [address] Dave Montaño, ANODIZER [address]00 [place] [address] documented as of this encounter Visit Diagnoses Not on filedocumented in this encounter Care Teams Milk Receiver Tank Truck Relationship Specialty Start Date End Date Sue Lieberman APRN [address] [address] PCP - General Internal Medicine 03/09/24 documented as of this encounter
--- OUTSIDE RECORDS SUMMARY | 2025-01-10 10:30 | XMS_ITS | Encounter Summary ---
[facility] Address [address] [place] [address] Care Team Providers Care Saddle Stitch Operator Name Role Phone Mio Sue VICKERS Primary Care Provider Encounter Details Date Type Department Care Team (Late st Contact Info) Description 09/16/2024 Results Follow-Up [facility] OBGYN [address] [place] [address] Radha De Souza, CONTACT CENTER TEAM LEAD [address] [facility] [address] [place] [address] Social History Tobacco Use Types Packs/Day Years [...] Info) Description 01/12/2025 2:00 PM EDT Visit [facility] OBGYN [address] [facility] 701 [place] [address] Sheldon Godoy, CONTACT CENTER TEAM LEAD 1700 [facility] [address] [place] [address] 09/22/2025 2:45 PM EDT Office Visit [facility] SLEEP MEDICINE 3000 [facility] [address] [place] [address] Dave Montaño, CONTACT CENTER TEAM LEAD 2400 [place] [address] documented as of this encounter Visit Diagnoses Not on filedocumented in this encounter Care Teams Saddle Stitch Operator Relationship Specialty Start Date End Date Sue Lieberman, CONTACT CENTER TEAM LEAD [facility] [address] [address] PCP - General Internal Medicine 03/09/24 documented as of this encounter
--- OUTSIDE RECORDS SUMMARY | 2025-01-10 10:30 | XMS_ITS | Encounter Summary ---
[facility] Address [address] [place] [address] Care Team Providers Care Exit Booth Agent Name Role Phone Sue Lieberman APRN Primary Care Provider [phone] Encounter Details Date Type Department Care Team (Late st Contact Info) Description 11/14/2024 Results Follow-Up [facility] OBGYN [address] [place] [address] Dayanna Marvin, WIRE STOCKKEEPER 1700 [place] [address] Social History Tobacco Use Types Packs/Day Years Used Date Smoking Tobacco: Never Smokeless Tobacco: Never Alcohol Use Standard Drinks/Week Comments Not Currently 2 (1 standard drink = 0.6 oz pur e alcohol) [facility] Utilities Answer Date Recorded In the past 12 months has [employer], [employer], oil, or water [employer] threatened to shut off services in your [...] and heating? Not hard at all 10/13/2024 [facility] of Occupat ional Health - Occupational [...] GED or equivalent No 10/13/2024 Preferred Language Kenyan 10/13/2024 PHQ-2 Answer Date Recorded Patient Health [...] Info) Description 01/12/2025 2:00 PM EDT Visit [facility] OBGYN 1700 [facility] [address] [place] [address] Sheldon Godoy, WIRE STOCKKEEPER 1700 [facility] [address] [place] [address] 09/22/2025 2:45 PM EDT Office Visit [facility] SLEEP MEDICINE 3000 [facility] [address] [place] [address] Dave Montaño, WIRE STOCKKEEPER 24[address] [place] [address] documented as of this encounter Visit Diagnoses Not on filedocumented in this encounter Care Teams Exit Booth Agent Relationship Specialty Start Date End Date Sue Lieberman APRN [address] [place] [address] PCP - General Internal Medicine 03/09/24 documented as of this encounter
--- OUTSIDE RECORDS SUMMARY | 2025-01-10 10:30 | XMS_ITS | Encounter Summary ---
[facility] Address [address] [place] [address] Care Team Providers Care Water Plant Operator Name Role Phone Sue Lieberman APRN Primary Care Provider Reason for Visit * Reason Onset Date Comments FMLA PAPERWORK 12/14/2024 Encounter Details Date Type Department Care Team (Late st Contact Info) Description 12/14/2024 Telephone [facility] OBGYN [address] [place], [place] [phone] Sheldon Godoy APRN [address] [place] [address] [place] [address] [place] PAPERWORK Social History Tobacco Use Types Packs/Day Years Used Date Smoking Tobacco: Never Passive Smoke Exposure: Never Smokeless Tobacco: Never Alcohol Use Standard Drinks/Week Comments Not Currently 2 (1 standard drink = 0.6 oz pur e alcohol) [facility] Utilities Answer Date Recorded In the past 12 months has [employer], gas, oil, or water [employer] threatened to shut off services in your [...] and heating? Not hard at all 11/23/2024 [facility] [place] of Occupat ional Health - Occupational Stress [...] things needed for daily living? No 11/23/2024 [place] Depression Scale Answer Date Recorded [place] Depression Scale Total 2 12/08/2024 The thought [...] GED or equivalent No 11/23/2024 Preferred Language Lebanese 11/23/2024 PHQ-2 Answer Date Recorded Patient Health Questionnaire-2 Score 0 11/23/2024 Comments No Sex and Gender Information Value Date Recorded Sex Assigned at Female 10/01/2024 2:08 PM EDT Legal Sex Female 10:46 AM EDT Gender Identity Not on file Sexual Orientation Not on file documented as of this encounter Miscellaneous Notes * Telephone Encounter - Margaux Dickens RegSched Rep - 12/14/2024 2:25 PM EDT Caller: Penny Francis Female, 24 y.o., 2000 CSN: [id number] Relationship: SELF What form or medical record are you requesting: [facility] PT REQ OFFICE TO CONTACT [facility] - NEEDS OFFICE TO CALL TO CONFIRM DELIVERY DATE AT, WELL A REVISED NOTE OF RETURN TO WORK DATE PT REQ RETURN TO WORK TO BE SENT TO HER [facility] documented in this encounter Plan of Treatment Upcoming Encounters Date Type Department Care Team (Late st Contact Info) Description 01/12/2025 2:00 PM EDT Visit [facility] OBGYN 1700 [facility] [address] [place] [address] Sheldon Godoy, RAILROAD SUPERVISOR OF ENGINES 1700 [facility] [address] [place] [address] 09/22/2025 2:45 PM EDT Office Visit [facility] SLEEP MEDICINE 3000 [facility] [address] [place] [address] Dave Montaño, RAILROAD SUPERVISOR OF ENGINES 2400 [place] [address] documented as of this encounter Visit Diagnoses Not on filedocumented in this encounter Care Teams Water Plant Operator Relationship Specialty Start Date End Date Sue Lieberman, RAILROAD SUPERVISOR OF ENGINES [address] [place] [address] PCP - General Internal Medicine 03/09/24 documented as of this encounter
--- OUTSIDE RECORDS SUMMARY | 2025-01-10 10:31 | XMS_ITS | Encounter Summary ---
[facility] Organization [facility] Address [address] [place] [address] Care Team Providers Care Checker Product Design Name Role Phone Sue Lieberman APRN Primary Care Provider [phone] Encounter Details Date Type Department Care Team (Late st Contact Info) Description 11/29/2024 Maternal Screening [facility] NURSE CALL CENTER [address] [place] [address] Loretta Antonio, RN Social History Tobacco Use Types Packs/Day Years Used Date Smoking Tobacco: Never Passive Smoke Exposure: Never Smokeless Tobacco: Never Alcohol Use Standard Drinks/Week Comments Not Currently 2 (1 standard drink = 0.6 oz pur e alcohol) [facility] Utilities Answer Date Recorded In the past 12 months has [employer], gas, oil, or water company threatened [...] and heating? Not hard at all 11/23/2024 [facility] [employer] of Occupat ional Health - Occupational Stress [...] things needed for daily living? No 11/23/2024 [place] Depression Scale Answer Date Recorded [place] Depression Scale Total 6 11/25/2024 The thought [...] GED or equivalent No 11/23/2024 Preferred Language Malaysian 11/23/2024 PHQ-2 Answer Date Recorded Patient Health [...] survey completed? Yes Facility patient discharged from? [facility] - Registered Nurse documented in this encounter Plan of Treatment Upcoming Encounters Date Type Department Care Team (Late st Contact Info) Description 01/12/2025 2:00 PM EDT Visit [facility] OBGYN 1700 [facility] 701 [place] [address] Sheldon Godoy, CASE FITTER 1700 [facility] [address] [place] [address] 09/22/2025 2:45 PM EDT Office Visit [facility] SLEEP MEDICINE 3000 [facility] 240 [place] [address] Dave Montaño, CASE FITTER 2400 [place] [address] documented as of this encounter Visit Diagnoses Not on filedocumented in this encounter Care Teams Checker Product Design Relationship Specialty Start Date End Date Sue Lieberman APRN [address] [place] [address] JASMYNE WATTS [address] PCP - General Internal Medicine 03/09/24 documented as of this encounter
== END 2025-01-09 23:59 ==
LOC: LAB.DROPOF 01-10 10:16
PROVIDERS: PCP Nurse Practitioner Family; Visit Provider Nurse Practitioner Family
DX: B34.9 Viral infection, unspecified (principal)
CPT/HCPCS: 87631

== ENCOUNTER 2025-03-13 16:23 | Outpatient (CLI) | payer BC, MEDICAID, SELFPAY ==
[2025-03-13 17:48] LABS: Coronavirus 19, PCR Not Detected (NotDetected); Influenza A, PCR Not Detected (NotDetected); Influenza B, PCR Not Detected (NotDetected)
--- OUTSIDE RECORDS SUMMARY | 2025-03-14 16:26 | XMS_ITS | Encounter Summary ---
Author Organization [facility] Address [address] [place] [address] Care Team Providers Care Emission Technician Name Role Phone LiebermanSue duran ALEE Primary Care Provider Encounter Details Date Type Department Care Team (Late Contact Info) Description 09/25/2024 Results Follow-Up [facility] OBGYN [address] [facility] [address] [place], [place] [phone] Rosalinda Uriostegui, WINE SPECIALIST 17[address] [facility] [address] [place] [address] Social History Tobacco Use Types Packs/Day Years [...] Department Care Team (Late Contact Info) Description 09/22/2025 2:45 PM EDT Office Visit [facility] SLEEP MEDICINE 3000 [facility] [address] [place] [phone] Dave Montaño, WINE SPECIALIST [address] [place] [address] 01/24/2026 11:30 AM EDT Office Visit [facility] OBGYN [address] [facility] [address] [place] [phone] Bhavya Carter MD 1700 [facility] 701 [place] [address] documented as of this encounter Visit Diagnoses Diagnosis Iron deficiency anemia during - Primary documented in this encounter Care Teams Emission Technician Relationship Specialty Start Date End Date Sue Lieberman APRN [address] [place] [address] PCP - General Internal Medicine 03/09/24 documented as of this encounter
--- OUTSIDE RECORDS SUMMARY | 2025-03-14 16:26 | XMS_ITS | Clinical Summary ---
Author Organization [facility] Address [address] [facility] [address] [place] [address] Care Team Providers Care Return To Factory Clerk Name Role Phone Dave Montaño SILK FINISHER Primary Care Provider [phone] Social History Tobacco Use Types Packs/Day Years [...] SDOH Screening 05/04/2024 COVID-19 Vaccine (1 - 2024-2 6 season) 2025 Influenza Vaccine (#1) 2025 Zoster [...] complete this topic Insurance NEVIN Care Teams Return To Factory Clerk Relationship Specialty Start Date End Date Dave Montaño NP [address] [place] [address] PCP - General 07/06/24
--- OUTSIDE RECORDS SUMMARY | 2025-03-14 16:26 | XMS_ITS | Encounter Summary ---
[facility] Organization [facility] Address [address] [place] [address] Care Team Providers Care Irrigation District Manager Name Role Phone Sue Lieberman APRN Primary Care Provider [phone] Encounter Details Date Type Department Care Team (Late st Contact Info) Description 10/28/2024 Results Follow-Up [facility] OBGYN [address] [place] [place] [address] Shilpa De Leon APRN 1700 [facility] [address] [place] [phone] Social History Tobacco Use Types Packs/Day Years Used Date Smoking Tobacco: Never Smokeless Tobacco: Never Alcohol Use Standard Drinks/Week Comments Not Currently 2 (1 standard drink = 0.6 oz pur e alcohol) [facility] Utilities Answer Date Recorded In the past 12 months has [employer], [employer], oil, or water [employer] threatened to shut off services in your [...] and heating? Not hard at all 10/13/2024 [facility] ional [facility] - [...] GED or equivalent No 10/13/2024 Preferred Language Brazilian 10/13/2024 PHQ-2 Answer Date Recorded Patient Health [...] Care Team (Late st Contact Info) Description 09/22/2025 2:45 PM EDT Office Visit [facility] SLEEP MEDICINE [address] [facility] [address] [place] [phone] Dave Montaño, GARDENER FLORIST [address]00 [place] [address] 01/24/2026 11:30 AM EDT Office Visit [facility] OBGYN 1700 [facility] 701 [place] [address] Bhavya Carter MD 1700 [facility] [address] [place] [address] documented as of this encounter Visit Diagnoses Not on filedocumented in this encounter Care Teams Irrigation District Manager Relationship Specialty Start Date End Date Sue Lieberman, GARDENER FLORIST [address] [place] [address] [address] PCP - General Internal Medicine 03/09/24 documented as of this encounter
--- OUTSIDE RECORDS SUMMARY | 2025-03-14 16:26 | XMS_ITS | Encounter Summary ---
Author Organization [facility] Address [address] [place] [address] Care Team Providers Care Records Coordinator Name Role Phone Sue Lieberman APRN Primary Care Provider [phone] Encounter Details Date Type Department Care Team (Late st Contact Info) Description 10/31/2024 Results Follow-Up [facility] OBGYN [address] [address] Rosalinda Uriostegui APRN [address] [place] [phone] Social History Tobacco Use Types Packs/Day Years Used Date Smoking Tobacco: Never Smokeless Tobacco: Never Alcohol Use Standard Drinks/Week Comments Not Currently 2 (1 standard drink = 0.6 oz pur e alcohol) [facility] Utilities Answer Date Recorded In the past 12 months has [employer], [employer], oil, or water [employer] threatened to shut off services in your [...] GED or equivalent No 10/13/2024 Preferred Language Haitian 10/13/2024 PHQ-2 Answer Date Recorded Patient Health [...] Description 09/22/2025 2:45 PM EDT Office Visit [facility] SLEEP MEDICINE 3000 [facility] 240 [place] [phone] Dave Montaño, CST 2400 [place] [address] 01/24/2026 11:30 AM EDT Office Visit [facility] OBGYN 1700 [facility] [address] [place] [phone] Bhavya Carter MD 1700 [facility] [address] [place] [address] documented as of this encounter Visit Diagnoses Not on filedocumented in this encounter Care Teams Records Coordinator Relationship Specialty Start Date End Date Sue Lieberman, ALEE [address] [place] [address] [address] [place] [address] PCP - General Internal Medicine 03/09/24 documented as of this encounter
--- OUTSIDE RECORDS SUMMARY | 2025-03-14 16:26 | XMS_ITS | Encounter Summary ---
[facility] Address [address] [place] [address] Care Team Providers Care Critical Care Unit Nurse Name Role Phone Sue Lieberman APRN Primary Care Provider [phone] Encounter Details Date Type Department Care Team (Late st Contact Info) Description 10/06/2024 Results Follow-Up [facility] OBGYN [address] [place] [address] Dayanna Marvin, PRODUCTION LEADER [address]00 [place] [address] Social History Tobacco Use Types Packs/Day Years [...] Description 09/22/2025 2:45 PM EDT Office Visit [facility] SLEEP MEDICINE 3000 [facility] 240 [place] [phone] Dave Montaño, PRODUCTION LEADER 2400 [place] [address] 01/24/2026 11:30 AM EDT Office Visit [facility] OBGYN 1700 [facility] 701 [place] [phone] Bhavya Carter MD 1700 [facility] 701 [place] [address] documented as of this encounter Visit Diagnoses Not on filedocumented in this encounter Care Teams Critical Care Unit Nurse Relationship Specialty Start Date End Date Sue Lieberman APRN [address] [place] [address] PCP - General Internal Medicine 03/09/24 documented as of this encounter
--- OUTSIDE RECORDS SUMMARY | 2025-03-14 16:26 | XMS_ITS | Encounter Summary ---
[facility] Address [address] [place] [address] Care Team Providers Care Perioperative Tech Name Role Phone Sue Lieberman APRN Primary Care Provider [phone] Encounter Details Date Type Department Care Team (Late st Contact Info) Description 11/02/2024 Results Follow-Up [facility] OBGYN [address] [address] Rosalinda Uriostegui APRN [address] [place] [phone] Social History Tobacco Use Types Packs/Day Years Used Date Smoking Tobacco: Never Smokeless Tobacco: Never Alcohol Use Standard Drinks/Week Comments Not Currently 2 (1 standard drink = 0.6 oz pur e alcohol) [facility] Utilities Answer Date Recorded In the past 12 months has [employer], [employer], oil, or water [employer] threatened to shut off services in your [...] GED or equivalent No 10/13/2024 Preferred Language Maldivian 10/13/2024 PHQ-2 Answer Date Recorded Patient Health [...] Description 09/22/2025 2:45 PM EDT Office Visit [facility] SLEEP MEDICINE 3000 [facility] 240 [place] [phone] Dave Montaño, CARDIAC CARE NURSE 2400 [place] [address] 01/24/2026 11:30 AM EDT Office Visit [facility] OBGYN 1700 [facility] [address] [place] [phone] Bhavya Carter MD 1700 [facility] [address] [place] [address] documented as of this encounter Visit Diagnoses Not on filedocumented in this encounter Care Teams Perioperative Tech Relationship Specialty Start Date End Date Sue Lieberman, ALEE [address] [place] [address] [address] [place] [address] PCP - General Internal Medicine 03/09/24 documented as of this encounter
--- OUTSIDE RECORDS SUMMARY | 2025-03-14 16:26 | XMS_ITS | Encounter Summary ---
Author Organization [facility] Address [address] [place] [address] Care Team Providers Care Research Agricultural Engineer Name Role Phone Sue Lieberman APRN Primary Care Provider [phone] Encounter Details Date Type Department Care Team (Late st Contact Info) Description 11/16/2024 Results Follow-Up [facility] OBGYN [address] [address] Bhavya Carter MD 1700 [place] [address] Social History Tobacco Use Types Packs/Day Years Used Date Smoking Tobacco: Never Smokeless Tobacco: Never Alcohol Use Standard Drinks/Week Comments Not Currently 2 (1 standard drink = 0.6 oz pur e alcohol) [facility] Utilities Answer Date Recorded In the past 12 months has [employer], [employer], oil, or water [email or web address] threatened to shut off services in your [...] and heating? Not hard at all 10/13/2024 [facility] of Occupat ional Health [...] Description 09/22/2025 2:45 PM EDT Office Visit [facility] SLEEP MEDICINE 3000 [facility] [place] [address] [place] [phone] Dave Montaño, HIGH VOLTAGE ELECTRICIAN 2400 [place] [address] 01/24/2026 11:30 AM EDT Office Visit [facility] OBGYN 1700 [facility] 701 [place] [address] Bhavya Carter MD 1700 [facility] [address] [place] [address] documented as of this encounter Visit Diagnoses Not on filedocumented in this encounter Care Teams Research Agricultural Engineer Relationship Specialty Start Date End Date Sue Lieberman, HIGH VOLTAGE ELECTRICIAN [address] [place] [address] [address] PCP - General Internal Medicine 03/09/24 documented as of this encounter
--- OUTSIDE RECORDS SUMMARY | 2025-03-14 16:26 | XMS_ITS | Encounter Summary ---
Author [facility] Address [address] [place] [address] Care Team Providers Care Proof Coin Collector Name Role Phone Sue Lieberman APRN Primary Care Provider [phone] Encounter Details Date Type Department Care Team (Late st Contact Info) Description 11/14/2024 Results Follow-Up [facility] OBGYN [address] [place] [address] Dayanna Marvin, RAIL BENDER 1700 [place] [address] Social History Tobacco Use Types Packs/Day Years Used Date Smoking Tobacco: Never Smokeless Tobacco: Never Alcohol Use Standard Drinks/Week Comments Not Currently 2 (1 standard drink = 0.6 oz pur e alcohol) [facility] Utilities Answer Date Recorded In the past 12 months has [employer], [employer], oil, or water [employer] threatened to shut off services in your [...] and heating? Not hard at all 10/13/2024 [facility] of Occupat ional Health - Occupational Stress [...] Description 09/22/2025 2:45 PM EDT Office Visit [facility] SLEEP MEDICINE 3000 [facility] [address] [place] [phone] Dave Montaño, RAIL BENDER 2400 [place] [address] 01/24/2026 11:30 AM EDT Office Visit [facility] OBGYN 1700 [facility] 701 [place] [address] Bhavya Carter MD 1700 [facility] [address] [place] [address] documented as of this encounter Visit Diagnoses Not on filedocumented in this encounter Care Teams Proof Coin Collector Relationship Specialty Start Date End Date Sue Lieberman, RAIL BENDER [address] [place] [address] [address] PCP - General Internal Medicine 03/09/24 documented as of this encounter
--- OUTSIDE RECORDS SUMMARY | 2025-03-14 16:26 | XMS_ITS | Clinical Summary ---
Author Organization [facility] Address [address] [place] [address] Care Team Providers Care Elevator Examiner Name Role Phone Sue Lieberman APRN Primary Care Provider Allergies Active Allergy Reactions Criticality Noted Date Comments Penicillins Unknown - Low Severity Low 09/12/2020 Childhood allergy - unsure of reaction Medications montelukast (SINGULAIR) 10 MG tablet Take 1 tablet by mouth Daily. 30 tablet 9 5 05/05/19 26 Active amitriptyline (ELAVIL) 50 MG tablet Take 1 tablet by mouth Every Night. Active cetirizine (zyrTEC) 10 MG tablet Take 1 tablet by mouth Daily. Active norethindrone-ethi nyl estradiol-iron (Loestrin Fe 1.5/30) 1.5-30 MG-MCG tabletIndications: Encounter for initial prescription of contraceptive pills Take 1 tablet by mouth Daily. 84 tablet 3 5 Active Active Problems Problem Noted Date Diagnosed [...] 07/03 07/28/2024 Teratogen exposure in current 07/29/19 25 Assessment & Plan (07/28/2024 1:43 PM EDT): [...] Encounters Date Type Department Care Team Description 01/16/2025 Results Follow-Up [facility] OBGYN [address] [place] [place] [address] Sheldon Godoy APRN 01/12/2025 2:00 PM EDT Visit [facility] OBGYN [address] [facility] [address] [place] [place] [address] Sheldon Godoy APRN Pap test, as part of routine gynecological examination (Primary Dx); follow-up; Encounter for initial prescription of contraceptive pills 01/12/2025 Travel 01/09/2025 Telephone [facility] O[facility]YN [address] [facility] [address] [place] [place] [address] Sheldon Godoy APRN CANCEL SAME DAY APPT. 12/14/2024 Telephone [facility] OBGYN [address] [place] [place] [address] Sheldon Godoy APRN FMLA PAPERWORK from Last 3 Months Immunizations Immunization Administration Dates Next Due Hep A, 2 Dose 12/02/2017 Meningococcal MCV4P (Menactra) 12/02/2017 Family History Medical History Relation Name Comments Hypertension Father Louis [place] Hypertension Maternal Aunt Diane [place] Sleep apnea Maternal Grandfather Grey Perez Asthma Maternal Grandmother Agueda Perez COPD Maternal Grandmother Agueda Perez Hypertension Maternal Grandmother Agueda Perez Sleep apnea Maternal Grandmother Agueda Perez Thyroid disease Maternal Grandmother Agueda Perez Hypertension Mother Toma [place] Hypertension Paternal Grandfather Bayron [place] Hypertension Paternal Grandmother Tosha [place] Breast cancer Neg Hx Colon cancer Neg Hx Ovarian cancer Neg Hx Uterine cancer Neg Hx Relation Name Status Comments Father Louis [place] Alive Maternal Aunt Diane Leg[place] Maternal Grandfather Grey Perez Alive Maternal Grandmother Agueda Perez Mother Toma Quispelen Paternal Grandfather Bayron [place] Paternal Grandmother Tosha [place] Social History Tobacco Use Types Packs/Day Years Used Date Smoking Tobacco: Never Passive Smoke Exposure: Never Smokeless Tobacco: Never Tobacco Cessation:Counseling Given: Not Answered Alcohol Use Standard Drinks/Week Comments Not Currently 2 (1 standard drink = 0.6 oz pur e alcohol) [facility] Utilities Answer Date Recorded In [...] and heating? Not hard at all 11/23/2024 [facility] of Occupat ional Health - Occupational Stress [...] things needed for daily living? No 11/23/2024 Onarga Depression Scale Answer Date Recorded On[place]a Depression Scale Total 5 01/12/2025 The thought of harming myself has occurred to me . Never 01/12/2025 Abuse Screen Answer Date Recorded Feels Unsafe [...] GED or equivalent No 11/23/2024 Preferred Language Mauritanian 11/23/2024 PHQ-2 Answer Date Recorded Patient Health Questionnaire-2 Score 0 11/23/2024 Comments No Sex and Gender Information Value Date Recorded Sex Assigned at Female 10/01/2024 2:08 PM EDT Legal Sex Female 10:46 AM EDT Gender Identity Not on file Sexual Orientation Not on file Last Filed Vital Signs Vital Sign Reading Time Taken Comments Blood Pressure 116/82 01/12/2025 2:11 PM EDT Pulse 86 11/28/2024 7:05 AM EDT Temperature 36.4 C (97.5 F) 11/28/2024 7:05 AM EDT Respiratory Rate 18 11/28/2024 7:05 AM EDT Oxygen Saturation 98% 11/25/2024 1:50 AM EDT Inhaled Oxygen Concentration - - Weight 127 kg (280 lb) 01/12/2025 2:11 PM EDT Height 160 cm (5' 2.99 ) 01/12/2025 2:11 PM EDT Body Mass Index 49.61 01/12/2025 2:11 PM EDT Plan of Treatment Upcoming Encounters Date Type Department Care Team (Late st Contact Info) Description 09/22/2025 2:45 PM EDT Office Visit [facility] SLEEP MEDICINE 3000 [facility] 240 [place] [address] Dave Montaño, GRINDER [address] [place] [address] 01/24/2026 11:30 AM EDT Office Visit [facility] OBGYN 1700 [facility] [address] [place] [phone] Bhavya Carter MD 1700 [facility] [address] [place], [place] [phone] Health Maintenance Due Date Last Done Comments HPV VACCINES (1 - 3-dose series) 2014 Pneumococcal Vaccine 0-49 (1 of 2 - PCV) 2018 TDAP/TD VACCINES (1 - Tdap) 2018 ANNUAL PHYSICAL 09/12/2020 INFLUENZA VACCINE 12/02/2024 Annual Gynecologic Pelvic an d Breast Exam 03/25/2025 03/24/2024 PAP SMEAR 01/13/2028 01/12/2025, 03/05, 12/03/2022, Additional history exists HEPATITIS C SCREENING Completed 09/23/2024, 024 CHLAMYDIA SCREENING Discontinued 01/12/2025, 04/22/2024, 03/24/2024, Additional history exists Medical Devices Implanted Type Area Project Development Engineer Device Identifier Shelf Expiration Date Model / Serial / Lot Obrien Adhs I/O Interceed Abs 3x4in - [id number] Implanted:Qty : 1 on 11/25/2024 by Bhavya Carter MD at [facility] Implant N/A: Uterus [employer] DIV OF J AND J 01/01/2027 [id number] / / [id number] Procedures Procedure Name Priority Date/Time Associated Diagnosis Comments LIQUID-BASED PAP SMEAR WITH HPV GENOTYPING REGARDLESS OF INTERPRETATION, [facility] (JOANNA,COR,MAD) Routine 01/12/2025 4:48 PM EDT Pap test, as part of routine gynecological examination HEPATITIS PANEL, ACUTE STAT 09/23/2024 2:30 PM EDT 28 weeks gestation of Gestational hypertension, second trimester from Last 3 Months or Most Recently Relevant to Health Maintenance Results * LIQUID-BASED PAP SMEAR WITH HPV GENOTYPING REGARDLESS OF INTERPRETATION (JOANNA,COR,MAD) (01/12/2025 4:48 PM EDT) Reference Lab Report FINAL ABORIGINAL EDUCATION WORKER COORDINATOR CYTOLOGY REPORT ---- DIAGNOSIS: Negative for intraepithelial lesion or malignancy Multiple factors can influence accuracy of Pap tests; therefore, screening at regular intervals is necessary for early cancer detection. ---- Adequacy SATISFACTORY FOR EVALUATION Transformation zone is present. Source CERVICAL/ENDOCERVI JOSE ALFREDO LMP None provided CLINICAL HISTORY: Routine , control pills The pap smear is a screening test with limited sensitivity, and false negative tests results can occur. ThinPrep Pap imagined by [employer] (AI assisted system). Screened by KAROL JEREZ (ASCP) Aptima HPV: Negative The Aptima HPV assay is an in vitro nucleic acid amplification test for the qualitative detection of E6/E7 viral messenger RNA from 14 high risk types of HPV in cervical specimens. The high risk HPV types detected include: 16, 18, 31, 33, 35, 39, 45, 51, 52, 56, 58, 59, 66 68 01/16/2025 9:07 AM EDT [facility] ThinPrep Vial Collection / Unknown 01/12/2025 4:48 PM EDT 01/12/2025 4:48 PM EDT Sheldon Godoy APRN PATHOLOGY/CYTOLOGY O RDERABLES Final Result [facility]
[address] [place] [address], [place] [phone] * Hepatitis Panel, Acute (09/23/2024 2:30 PM EDT) Hep A IgM Negative Negative [facility] Comment: A negative anti-HAV IgM result suggests no recent or current HAV infection. Hepatitis B Surface Ag Negative Negative [facility] Hep B Core IgM Negative Negative [facility] Hepatitis C Ab Non Reactive Non Reactive [facility] Blood 09/23/2024 2:30 PM EDT 09/23/2024 Narrative [facility] (AMBULATORY) - 09/24/2024 8:36 AM EDT Performed at: 01 - [address] [id number] Substation Operator Conversion: Cristian Acuña PhD, Phone: [phone] us Rosalinda Uriostegui GRINDER LAB BLOOD ORDERABLES Final Result Performing Organization Address City/State/[facility] Co de Phone Number [facility] [place] (AMBULATORY) [address] [place] [address], [place] [phone] [facility] [address] [place] [address], [place] [phone] from Last 3 Months or Most Recently Relevant to Health Maintenance [facility] [place]ICAID [place] Advance [...] Of Support Discussed With: Patient Care Teams Elevator Examiner Relationship Specialty Start Date End Date Sue Lieberman APRN [address] [place] [address] PCP - General Internal Medicine 03/09/24
--- OUTSIDE RECORDS SUMMARY | 2025-03-14 16:26 | XMS_ITS | Encounter Summary ---
[facility] Address [address] [place] [address] Care Team Providers Care Hand Stone Polisher Name Role Phone LiebermanSue duran ALEE Primary Care Provider [phone] Encounter Details Date Type Department Care Team (Late st Contact Info) Description 09/30/2024 Results Follow-Up [facility] OBGYN [address] [place] [address] Dayanna Marvin, FUEL AGENT [address] [place] [address] Social History Tobacco Use Types Packs/Day Years [...] Description 09/22/2025 2:45 PM EDT Office Visit [facility] SLEEP MEDICINE 3000 [facility] 240 [place] [phone] Dave Montaño, FUEL AGENT [address] [place] [address] 01/24/2026 11:30 AM EDT Office Visit [facility] [address] [facility] [address] [place] [address] Bhavya Carter MD [address]00 [place] [phone] documented as of this encounter Visit Diagnoses Not on filedocumented in this encounter Care Teams Hand Stone Polisher Relationship Specialty Start Date End Date Sue Lieberman APRN [address] [place], [place] [phone] PCP - General Internal Medicine 03/09/24 documented as of this encounter
--- OUTSIDE RECORDS SUMMARY | 2025-03-14 16:26 | XMS_ITS | Encounter Summary ---
Author Organization [facility] Address [address] [place] [address] Care Team Providers Care Motor Coach Chauffeur Name Role Phone Sue Lieberman ALEE Primary Care Provider [phone] Encounter Details Date Type Department Care Team (Late Contact Info) Description 09/22/2024 Results Follow-Up [facility] OBGYN [address] [address] Bhavya Carter MD [address] [place] [id number] Social History Tobacco Use Types Packs/Day Years [...] Description 09/22/2025 2:45 PM EDT Office Visit [facility] SLEEP MEDICINE 3000 [facility] 240 [place] [phone] Dave Montaño, SECTION CHIEF 2400 [place] [address] 01/24/2026 11:30 AM EDT Office Visit [facility] OBGYN 1700 [facility] [address] [place] [address] Bhavya Carter MD 1700 [facility] [address] [place], [place] [id number] documented as of this encounter Visit Diagnoses Not on filedocumented in this encounter Care Teams Motor Coach Chauffeur Relationship Specialty Start Date End Date Sue Lieberman APRN [facility] [address] [address] PCP - General Internal Medicine 03/09/24 documented as of this encounter
--- OUTSIDE RECORDS SUMMARY | 2025-03-14 16:26 | XMS_ITS | Encounter Summary ---
[facility] Address [address] [address] Care Team Providers Care Marine Mechanic Name Role Phone Sue Lieberman APRN Primary Care Provider [phone] Encounter Details Date Type Department Care Team (Late st Contact Info) Description 10/19/2024 Results Follow-Up [facility] OBGYN [address] [place] [address] [place] [address] Shilpa De Leon APRN 1700 [facility] [address] [place] [id number] Social History Tobacco Use Types Packs/Day Years Used Date Smoking Tobacco: Never Smokeless Tobacco: Never Alcohol Use Standard Drinks/Week Comments Not Currently 2 (1 standard drink = 0.6 oz pur e alcohol) [facility] Utilities Answer Date Recorded In the past 12 months has [employer], [employer], oil, or water [place] threatened to shut off services in your [...] GED or equivalent No 10/13/2024 Preferred Language Macedonian 10/13/2024 PHQ-2 Answer Date Recorded Patient Health [...] 9:25 PM EDT Peggy Chacon RN * [place] Suicide Severity Rating Scale (Screener/Recent Self-Report) Question Answer Date of Assessment Author 6. Suicidal Behavior (Lifetime) No 10/19/2024 9:25 PM EDT Dileep Doan RN documented as of this encounter Plan of Treatment Upcoming Encounters Date Type Department Care Team (Late st Contact Info) Description 09/22/2025 2:45 PM EDT Office Visit [facility] SLEEP MEDICINE 3000 [facility] [place] [place] [address] Dave Montaño, SENIOR RESERVOIR ENGINEER [address] [place] [address] 01/24/2026 11:30 AM EDT Office Visit [facility] OBGYN [address] [place] [address] [place] [address] Bhavya Carter MD 1700 [facility] [place] [place] [address] documented as of this encounter Visit Diagnoses Not on filedocumented in this encounter Care Teams Marine Mechanic Relationship Specialty Start Date End Date Sue Lieberman APRN [address] [place] [address] PCP - General Internal Medicine 03/09/24 documented as of this encounter
--- OUTSIDE RECORDS SUMMARY | 2025-03-14 16:26 | XMS_ITS | Encounter Summary ---
[facility] Address [address] [place] [address] Care Team Providers Care Slurry Plant Operator Name Role Phone Sue Lieberman APRN Primary Care Provider [phone] Reason for Visit * Reason Onset Date Comments FMLA PAPERWORK 12/14/2024 Encounter Details Date Type Department Care Team (Late st Contact Info) Description 12/14/2024 Telephone [facility] OBGYN [address] [place], [place] [phone] Sheldon Godoy APRN [address] [place] [address] [place] [address] [place] [employer] Social History Tobacco Use Types Packs/Day Years Used Date Smoking Tobacco: Never Passive Smoke Exposure: Never Smokeless Tobacco: Never Alcohol Use Standard Drinks/Week Comments Not Currently 2 (1 standard drink = 0.6 oz pur e alcohol) [facility] Utilities Answer Date Recorded In the past 12 months has [employer], gas, oil, or water [employer] threatened to shut off services in your [...] and heating? Not hard at all 11/23/2024 [facility] [place] of Occupat ional Health - Occupational Stress [...] things needed for daily living? No 11/23/2024 [place] Depression Scale Answer Date Recorded [place] Depression Scale Total 5 01/12/2025 The thought [...] GED or equivalent No 11/23/2024 Preferred Language Ukrainian 11/23/2024 PHQ-2 Answer Date Recorded Patient Health [...] Penny Francis Female, 24 y.o., 2000 CSN: [id number] Relationship: SELF What form or medical record are you requesting: [facility] PT REQ OFFICE TO CONTACT [facility] - NEEDS OFFICE TO CALL TO CONFIRM DELIVERY DATE AT, WELL A REVISED NOTE OF RETURN TO WORK DATE PT REQ RETURN TO WORK TO BE SENT TO HER [facility] documented in this encounter Plan of Treatment Upcoming Encounters Date Type Department Care Team (Late st Contact Info) Description 09/22/2025 2:45 PM EDT Office Visit [facility] SLEEP MEDICINE 3000 [facility] [place] [place] [address] Dave Montaño, FREIGHT CAR INSPECTOR [address] [place] [id number] 01/24/2026 11:30 AM EDT Office Visit [facility] OBGYN 1700 [facility] [address] [place] [address] Bhavya Carter MD 1700 [facility] 701 [place] [address] documented as of this encounter Visit Diagnoses Not on filedocumented in this encounter Care Teams Slurry Plant Operator Relationship Specialty Start Date End Date Sue Lieberman APRN [address] [place] [address] PCP - General Internal Medicine 03/09/24 documented as of this encounter
--- OUTSIDE RECORDS SUMMARY | 2025-03-14 16:26 | XMS_ITS | Encounter Summary ---
[facility] [address] [place] [address] Care Team Providers Care Imaging Science Professor Name Role Phone Sue Lieberman APRN Primary Care Provider [phone] Encounter Details Date Type Department Care Team (Late st Contact Info) Description 01/16/2025 Results Follow-Up [facility] OBGYN [address] [place] [address] Sheldon Godoy APRN 1700 [facility] [address] [place], [place] [phone] Social History Tobacco Use Types Packs/Day Years Used Date Smoking Tobacco: Never Passive Smoke Exposure: Never Smokeless Tobacco: Never Alcohol Use Standard Drinks/Week Comments Not Currently 2 (1 standard drink = 0.6 oz pur e alcohol) [facility] Utilities Answer Date Recorded In the past 12 months has [employer], [employer], oil, or water [employer] threatened to shut off services in [...] and heating? Not hard at all 11/23/2024 [facility] - Occupational Stress Questionnaire Answer Date [...] things needed for daily living? No 11/23/2024 [place] Depression Scale Answer Date Recorded [place] Depression Scale Total 5 01/12/2025 The thought [...] Description 09/22/2025 2:45 PM EDT Office Visit [facility] SLEEP MEDICINE 3000 [facility] 240 [place] [address] Dave Montaño, PASSEMENTERIE WORKER [address]00 [place] [address] 01/24/2026 11:30 AM EDT Office Visit [facility] OBGYN 1700 [facility] [address] [place] [address] Bhavya Carter MD 1700 [facility] [address] [place] [address] documented as of this encounter Visit Diagnoses Not on filedocumented in this encounter Care Teams Imaging Science Professor Relationship Specialty Start Date End Date Sue Lieberman APRN [address] [place] [address] [address] [facility] [address] PCP - General Internal Medicine 03/09/24 documented as of this encounter
--- OUTSIDE RECORDS SUMMARY | 2025-03-14 16:26 | XMS_ITS | Encounter Summary ---
[facility] [address] [place] [address] Care Team Providers Care Screen Printing Equipment Setter Name Role Phone LiebermanSue duran ALEE Primary Care Provider Encounter Details Date Type Department Care Team (Late st Contact Info) Description 09/16/2024 Results Follow-Up [facility] OBGYN [address] [place] [address] Radha De Souza, PATTERN HANGER 1700 [facility] 701 [place] [address] Social History Tobacco Use Types Packs/Day Years [...] Visit [facility] SLEEP MEDICINE 3000 [facility] [address] [place] [address] Dave Montaño, PATTERN HANGER 2400 [place] [address] 01/24/2026 11:30 AM EDT Office Visit [facility] OBGYN [address] [facility] 701 [place] [address] Bhavya Carter MD 1700 [facility] 701 [place] [address] documented as of this encounter Visit Diagnoses Not on filedocumented in this encounter Care Teams Screen Printing Equipment Setter Relationship Specialty Start Date End Date Sue Lieberman APRN [address] [address] PCP - General Internal Medicine 03/09/24 documented as of this encounter
--- OUTSIDE RECORDS SUMMARY | 2025-03-14 16:26 | XMS_ITS | Encounter Summary ---
[facility] Address [address] [place] [address] Care Team Providers Care Intensive Care Ambulance Paramedic Name Role Phone LiebermanSue duran ALEE Primary Care Provider Encounter Details Date Type Department Care Team (Late st Contact Info) Description 09/20/2024 Results Follow-Up [facility] OBGYN [address] [place] [address] Dayanna Marvin, PACKING MACHINE FEEDER [address] [facility] 701 [place] [address] Social History Tobacco Use Types Packs/Day Years [...] Description 09/22/2025 2:45 PM EDT Office Visit [facility] SLEEP MEDICINE 3000 [facility] 240 [place] [phone] Dave Montaño, PACKING MACHINE FEEDER 2400 [place] [address] 01/24/2026 11:30 AM EDT Office [address] [facility] OBGYN [address] [facility] 701 [place] [address] Bhavya Carter MD 1700 [facility] [address] [place] [address] documented as of this encounter Visit Diagnoses Not on filedocumented in this encounter Care Teams Intensive Care Ambulance Paramedic Relationship Specialty Start Date End Date Sue Lieberman APRN [address] [place] [address] PCP - General Internal Medicine 03/09/24 documented as of this encounter
--- OUTSIDE RECORDS SUMMARY | 2025-03-14 16:26 | XMS_ITS | Encounter Summary ---
[facility] Address [address] [place] [address] Care Team Providers Care Spray Maker Name Role Phone Sue Lieberman APRN Primary Care Provider [phone] Encounter Details Date Type Department Care Team (Late st Contact Info) Description 10/19/2024 Results Follow-Up [facility] OBGYN [address] [address] Bhavya Carter MD 1700 [place] [address] Social History Tobacco Use Types Packs/Day Years Used Date Smoking Tobacco: Never Smokeless Tobacco: Never Alcohol Use Standard Drinks/Week Comments Not Currently 2 (1 standard drink = 0.6 oz pur e alcohol) [facility] Utilities Answer Date Recorded In the past 12 months has [employer], [employer], oil, or water [employer] threatened to shut off services in your [...] 10/13/2024 [facility] of Occupat ional Health - Occupational [...] GED or equivalent No 10/13/2024 Preferred Language American 10/13/2024 PHQ-2 Answer Date Recorded Patient Health [...] 9:25 PM EDT Peggy Chacon RN * [place] Suicide Severity Rating Scale (Screener/Recent Self-Report) Question Answer Date of Assessment Author 6. Suicidal Behavior (Lifetime) No 10/19/2024 9:25 PM EDT Dileep Doan RN documented as of this encounter Plan of Treatment Upcoming Encounters Date Type Department Care Team (Late st Contact Info) Description 09/22/2025 2:45 PM EDT Office Visit [facility] SLEEP MEDICINE 3000 [facility] [address] [place] [address] Dave Montaño, GROCERY STORE MANAGER [address] [place] [address] 01/24/2026 11:30 AM EDT Office Visit [facility] OBGYN [address] [place] [address] [place] [address] Bhavya Carter MD 1700 [facility] [place] [address] [place] [address] documented as of this encounter Visit Diagnoses Not on filedocumented in this encounter Care Teams Spray Maker Relationship Specialty Start Date End Date Sue Lieberman APRN [address] [place] [address] PCP - General Internal Medicine 03/09/24 documented as of this encounter
== END 2025-03-13 23:59 | disposition home or self-care (01) ==
LOC: LAB.DROPOF 03-14 16:23
PROVIDERS: PCP Nurse Practitioner Family; Visit Provider Nurse Practitioner Family
DX: J02.9 Acute pharyngitis, unspecified (principal); R51.9 Headache, unspecified; H93.8X9 Other specified disorders of ear, unspecified ear
CPT/HCPCS: 87631